=== PATIENT | male | born 1970 | race Caucasian/White ===

== ENCOUNTER → 2020-08-11 14:16 | Outpatient (BNVA) | payer OTHER, SELFPAY | PROVIDERS: PCP Nurse Practitioner Family; Visit Provider Family Medicine Adult Medicine | DX: M47.816 Spondylosis without myelopathy or radiculopathy, lumbar region (principal); M47.812 Spondylosis without myelopathy or radiculopathy, cervical region; M19.011 Primary osteoarthritis, right shoulder; M19.012 Primary osteoarthritis, left shoulder; M25.561 Pain in right knee; M25.562 Pain in left knee; F43.10 Post-traumatic stress disorder, unspecified; Z87.820 Personal history of traumatic brain injury; Z79.891 Long term (current) use of opiate analgesic | CPT/HCPCS: 99214 ==

== ENCOUNTER 2020-08-15 09:33 | Outpatient (REF) | payer OTHER, SELFPAY ==
[2020-08-15 11:36] LABS: Hematocrit 43.7 % (42-52); Hemoglobin 14.6 g/dl (14.0-18.0); Mean Corpuscular HGB Conc 33.4 g/dl (31.0-36.0); Mean Corpuscular Hemoglobin 29.4 pg (27.0-33.0); Mean Corpuscular Volume 88.1 fL (80-98); Mean Platelet Volume 10.1 fL (9.4-12.4); Platelet Count 290 X10*3/uL (160-400); Red Blood Count 4.96 X10*6/uL (4.60-5.80); Red Cell Distribution Width 14.6 % (11.0-16.0); White Blood Count 8.3 X10*3/uL (4.8-10.8)
[2020-08-20 12:10] LABS: Testosterone, Total 624 ng/dL (250-1100)
== END 2020-08-15 09:34 | disposition home or self-care (01) ==
LOC: HO.HMGCLDS 09:33
PROVIDERS: PCP Nurse Practitioner Family; Visit Provider Urology
DX: E29.1 Testicular hypofunction (principal); Z12.5 Encounter for screening for malignant neoplasm of prostate
CPT/HCPCS: 36415; 84153; 84403; 85027

== ENCOUNTER → 2020-09-08 14:01 | Outpatient (BNVA) | payer OTHER, SELFPAY | PROVIDERS: Visit Provider Family Medicine Adult Medicine | DX: M47.812 Spondylosis without myelopathy or radiculopathy, cervical region (principal); M47.816 Spondylosis without myelopathy or radiculopathy, lumbar region; M19.011 Primary osteoarthritis, right shoulder; M25.561 Pain in right knee; M25.562 Pain in left knee; Z79.891 Long term (current) use of opiate analgesic | CPT/HCPCS: 99212 ==

== ENCOUNTER → 2020-09-12 11:00 | Outpatient (BNVA) | payer OTHER, SELFPAY | PROVIDERS: Visit Provider Internal Medicine Gastroenterology | DX: R74.01 Elevation of levels of liver transaminase levels (principal); K21.9 Gastro-esophageal reflux disease without esophagitis; Z86.010 Personal history of colon polyps; Z79.899 Other long term (current) drug therapy | CPT/HCPCS: 99212 ==

== ENCOUNTER → 2020-09-21 15:09 | Outpatient (BNVA) | payer OTHER, SELFPAY | PROVIDERS: Visit Provider Urology | DX: Z76.89 Persons encountering health services in other specified circumstances (principal) ==

== ENCOUNTER → 2020-10-13 14:58 | Outpatient (BNVA) | payer OTHER, SELFPAY | PROVIDERS: Visit Provider Family Medicine Adult Medicine | DX: F11.20 Opioid dependence, uncomplicated (principal); Z79.899 Other long term (current) drug therapy | CPT/HCPCS: 99212 ==

== ENCOUNTER → 2020-12-06 10:32 | Outpatient (BNVA) | payer OTHER, SELFPAY | PROVIDERS: PCP Nurse Practitioner Family; Visit Provider Nurse Practitioner Family | DX: M25.561 Pain in right knee (principal); G89.29 Other chronic pain; M47.816 Spondylosis without myelopathy or radiculopathy, lumbar region; M19.012 Primary osteoarthritis, left shoulder; M19.011 Primary osteoarthritis, right shoulder; M47.812 Spondylosis without myelopathy or radiculopathy, cervical region; Z79.899 Other long term (current) drug therapy | CPT/HCPCS: 99212 ==

== ENCOUNTER → 2021-01-03 11:41 | Outpatient (BNVA) | payer OTHER, SELFPAY | PROVIDERS: PCP Nurse Practitioner Family; Visit Provider Family Medicine Adult Medicine | DX: M19.011 Primary osteoarthritis, right shoulder (principal); M47.812 Spondylosis without myelopathy or radiculopathy, cervical region; M47.816 Spondylosis without myelopathy or radiculopathy, lumbar region; M25.562 Pain in left knee; M25.561 Pain in right knee; G89.29 Other chronic pain | CPT/HCPCS: 99212 ==

== ENCOUNTER 2021-01-10 10:40 | Outpatient (REF) | payer OTHER, SELFPAY ==
--- NOTE | ~2021-01-10 | XR_ITS ---
EXAMINATION: XR KNEE, BILATERAL CLINICAL INFORMATION: Pain bilaterally. COMPARISON: None TECHNIQUE: Four views each knee. FINDINGS: RIGHT KNEE: Weightbearing AP and lateral views were obtained in addition to 2 other views. The medial and lateral compartment joint space is maintained normal. Mild loss of patellofemoral compartment joint space with periarticular spurring and mild suprapatellar joint effusion is noted. There is mild lateral patellar subluxation in relation to femur There are no loose bodies or free air. No free fluid seen. LEFT KNEE: Weightbearing views reveal medial and lateral compartment joint space to be maintained normal. Mild loss of patellofemoral compartment joint space seen with lateral subluxation of patella in relation to the distal femur. No abnormal joint effusion seen. No loose bodies or bony erosive changes. XR/XR knee LT 4V IMPRESSION: Mild degenerative changes bilateral patellofemoral compartments with suprapatellar joint effusion right knee. No acute fracture or dislocation seen. There is mild lateral subluxation of patella in relation to distal femur in both knees.
--- NOTE | ~2021-01-10 | XR_ITS ---
EXAMINATION: XR KNEE, BILATERAL CLINICAL INFORMATION: Pain bilaterally. COMPARISON: None TECHNIQUE: Four views each knee. FINDINGS: RIGHT KNEE: Weightbearing AP and lateral views were obtained in addition to 2 other views. The medial and lateral compartment joint space is maintained normal. Mild loss of patellofemoral compartment joint space with periarticular spurring and mild suprapatellar joint effusion is noted. There is mild lateral patellar subluxation in relation to femur There are no loose bodies or free air. No free fluid seen. LEFT KNEE: Weightbearing views reveal medial and lateral compartment joint space to be maintained normal. Mild loss of patellofemoral compartment joint space seen with lateral subluxation of patella in relation to the distal femur. No abnormal joint effusion seen. No loose bodies or bony erosive changes. XR/XR knee RT 4V IMPRESSION: Mild degenerative changes bilateral patellofemoral compartments with suprapatellar joint effusion right knee. No acute fracture or dislocation seen. There is mild lateral subluxation of patella in relation to distal femur in both knees.
[2021-01-10 14:31] LABS: Alanine Aminotransferase 62 U/L (0-40); Albumin Level 4.2 g/dL (3.5-5.0); Alkaline Phosphatase 37 U/L (39-117); Anion Gap 15 (12-20); Aspartate Amino Transferase 63 U/L (5-37); Bilirubin Direct 0.4 mg/dL (0.0-0.5); Bilirubin Total 1.1 mg/dL (0.0-1.0); Blood Urea Nitrogen 13 mg/dL (9-16); Calcium 9.5 mg/dL (8.4-10.2); Carbon Dioxide 32 mmol/L (22-29); Chloride 95 mmol/L (96-108); Cholesterol 218 mg/dL; Estimated Glomerular Filt Rate > 60; Glucose Fasting 76 mg/dL (60-99); HDL Cholesterol 31 mg/dL; LDL Cholesterol Calculated 127 mg/dl; Potassium 3.2 mmol/L (3.3-5.1); Sodium 139 mmol/L (135-145); Triglycerides 301 mg/dL
[2021-01-10 14:52] LABS: TSH reflex Free T4 3.02 uIU/mL (0.32-4.0)
[2021-01-11 22:11] LABS: Prot Elec - Albumin 3.9 g/dL (3.8-4.8); Prot Elec - Alpha1 0.4 g/dL (0.2-0.3); Prot Elec - Beta 1 0.5 g/dL (0.4-0.6); Prot Elec - Beta 2 0.4 g/dL (0.2-0.5); Prot Elec - Gamma 0.9 g/dL (0.8-1.7)
[2021-01-11 22:42] LABS: Anti Nuclear Antibody Screen NEGATIVE (NEGATIVE)
[2021-01-19 12:51] LABS: Smooth Muscle Antibody <20 U (<20)
== END 2021-01-10 10:41 | disposition home or self-care (01) ==
LOC: HO.HMGCX 10:40
PROVIDERS: Internal Medicine Gastroenterology; PCP Nurse Practitioner Family; Visit Provider Nurse Practitioner Family
DX: I10 Essential (primary) hypertension (principal); R74.01 Elevation of levels of liver transaminase levels
CPT/HCPCS: 36415; 73564; 80053; 80061; 80076; 82248; 84155; 84165; 84443; 85610; 86038; 86039; 86255

== ENCOUNTER 2021-01-11 10:50 | Outpatient (REF) | payer OTHER, SELFPAY ==
[2021-01-11 14:38] LABS: Anion Gap 14 (12-20); Carbon Dioxide 31 mmol/L (22-29); Chloride 94 mmol/L (96-108); Potassium 3.2 mmol/L (3.3-5.1); Sodium 136 mmol/L (135-145)
[2021-01-13 08:13] LABS: HBS Num1 0.64 mIU/mL (0-7.99); HBc Num1 0.07 S/CO (0.00-0.79); Hepatitis A Antibody IgM 0.16 Index (0-0.79); Hepatitis B Core Antibody Nonreactive (Nonreactive); ~Hepatitis A Antibody IgM Nonreactive (Nonreactive); ~Hepatitis B Surface Antibody NONREACTIVE (Nonreactive)
[2021-01-13 08:44] LABS: HBsAGNum1 0.19 S/CO (0.00-0.99); Hepatitis B Surface Antigen Negative (Negative); ~HepC Num1 0.09 S/CO (0.00-0.79); ~Hepatitis C Antibody Nonreactive (Nonreactive)
== END 2021-01-11 10:51 | disposition home or self-care (01) ==
LOC: HO.HMGCLDS 10:50
PROVIDERS: PCP Nurse Practitioner Family; Visit Provider Nurse Practitioner Family
DX: E87.6 Hypokalemia (principal); R74.8 Abnormal levels of other serum enzymes
CPT/HCPCS: 36415; 80051; 86704; 86706; 86709; 86803; 87340

== ENCOUNTER 2021-01-18 10:40 | Outpatient (REF) | payer OTHER, SELFPAY ==
--- NOTE | ~2021-01-18 | US_ITS ---
EXAMINATION: US SOFT TISSUE OF THE NECK CLINICAL INFORMATION: L98.9 - Disorder of the skin and subcutaneous tissue, unspecified. COMPARISON: None TECHNIQUE: Linear ultrasound left supraclavicular region is targeted to the area of patient concern. Grayscale imaging and color Doppler are performed. Patient is able to point to area of concern at time of imaging. FINDINGS: There is small oval soft tissue nodule left supraclavicular region in area of palpable concern measuring only 4 x 2 mm in size and residing within 5 mm of the skin surface. This may represent a small node although no definable fatty hilus or associated color flow is seen. Otherwise, there is no cystic or solid mass. No skin thickening or edema tracking in soft tissue planes. No lymphadenopathy. US/US soft tiss head and/or neck IMPRESSION: Questionable 4 x 2 mm soft tissue nodule in area of palpable concern left supraclavicular region. Otherwise, no cystic or solid mass or lymphadenopathy.
--- NOTE | ~2021-01-18 | US_ITS ---
EXAMINATION: US ABDOMEN COMPLETE CLINICAL INFORMATION: Abnormal levels of other serum enzymes. COMPARISON: CT abdomen pelvis 01/01/2020 ultrasound abdomen 12/30/2019 and 02/18/2019. TECHNIQUE: Real-time imaging of the abdominal viscera. FINDINGS: PANCREAS: The head and the body of pancreas are homogeneous in echotexture. The tail is obscured by overlying gas. The pancreatic duct is slightly prominent measuring 0.28 cm. ABDOMINAL AORTA: The proximal, mid, and distal segments are normal in caliber. INFERIOR VENA CAVA: Visualized portions are normal. LIVER: The liver is normal in size. The liver contour is normal. There is mild diffuse increased liver echogenicity. No focal hepatic lesion. There is no intrahepatic biliary duct dilatation seen. There is hepatopedal flow seen on Doppler exam. Slightly prominent bulbous middle portal vein is seen. GALLBLADDER: The gallbladder is physiologically distended. Multiple mobile gallstones are present. No evidence of gallbladder wall thickening or pericholecystic fluid. COMMON BILE DUCT: Normal in caliber measuring 1.1 cm in diameter. RIGHT KIDNEY: Normal. No hydronephrosis. No renal calculi or focal parenchymal lesions. The kidney measures 12.8 cm in maximum dimension. LEFT KIDNEY: Normal. No hydronephrosis. No renal calculi or focal parenchymal lesions. The kidney measures 14.9 cm in maximum dimension. SPLEEN: Normal. The spleen measures 12.6 cm in maximum dimension. FREE FLUID: None. US/US abdomen complete IMPRESSION: Slightly increased liver echogenicity but no focal lesions seen. Slightly bulbous but patent middle portal vein on Doppler exam. Gallstones without wall thickening. The rest of the abdominal ultrasound is unremarkable.
== END 2021-01-18 10:41 | disposition home or self-care (01) ==
LOC: HO.US 10:40
PROVIDERS: PCP Nurse Practitioner Family; Visit Provider Nurse Practitioner Family
DX: R74.8 Abnormal levels of other serum enzymes (principal); L98.9 Disorder of the skin and subcutaneous tissue, unspecified
CPT/HCPCS: 76536; 76700

== ENCOUNTER 2021-01-23 11:35 | Outpatient (REF) | payer OTHER, SELFPAY ==
[2021-01-23 15:00] LABS: Anion Gap 14 (12-20); Carbon Dioxide 33 mmol/L (22-29); Chloride 97 mmol/L (96-108); Potassium 4.4 mmol/L (3.3-5.1); Sodium 140 mmol/L (135-145)
== END 2021-01-23 11:36 | disposition home or self-care (01) ==
LOC: HO.HMGCLDS 11:35
PROVIDERS: PCP Nurse Practitioner Family; Visit Provider Nurse Practitioner Family
DX: E87.6 Hypokalemia (principal)
CPT/HCPCS: 36415; 80051

== ENCOUNTER → 2021-01-24 14:05 | Outpatient (BNVA) | payer OTHER, SELFPAY | PROVIDERS: PCP Nurse Practitioner Family; Visit Provider Orthopaedic Surgery | DX: M17.0 Bilateral primary osteoarthritis of knee (principal) | CPT/HCPCS: 20610; 99202; J1040 ==

== ENCOUNTER → 2021-02-07 11:28 | Outpatient (BNVA) | payer OTHER, SELFPAY | PROVIDERS: PCP Nurse Practitioner Family; Visit Provider Family Medicine Adult Medicine | DX: M19.011 Primary osteoarthritis, right shoulder (principal); M47.812 Spondylosis without myelopathy or radiculopathy, cervical region; M47.816 Spondylosis without myelopathy or radiculopathy, lumbar region; M25.561 Pain in right knee; M25.562 Pain in left knee; G89.29 Other chronic pain | CPT/HCPCS: 99212 ==

== ENCOUNTER → 2021-03-09 15:42 | Outpatient (BNVA) | payer OTHER, SELFPAY | PROVIDERS: PCP Nurse Practitioner Family; Referring Provider Nurse Practitioner Family; Visit Provider Surgery | DX: R22.2 Localized swelling, mass and lump, trunk (principal) | CPT/HCPCS: 99202 ==

== ENCOUNTER 2021-03-14 10:43 | Outpatient (REF) | payer OTHER, SELFPAY ==
[2021-03-14 16:42] LABS: Hematocrit 45.6 % (42-52); Hemoglobin 15.1 g/dl (14.0-18.0); Mean Corpuscular HGB Conc 33.1 g/dl (31.0-36.0); Mean Corpuscular Hemoglobin 28.2 pg (27.0-33.0); Mean Corpuscular Volume 85.2 fL (80-98); Mean Platelet Volume 10.5 fL (9.4-12.4); Platelet Count 217 X10*3/uL (160-400); Red Blood Count 5.35 X10*6/uL (4.60-5.80); Red Cell Distribution Width 14.7 % (11.0-16.0); White Blood Count 6.3 X10*3/uL (4.8-10.8)
[2021-03-14 16:58] LABS: Prothrombin Time 11.5 SEC (10.8-13.0)
[2021-03-14 17:10] LABS: Blood Urea Nitrogen 18 mg/dL (9-16); Cholesterol 190 mg/dL; Estimated Glomerular Filt Rate > 60; HDL Cholesterol 39 mg/dL; LDL Cholesterol Calculated 92 mg/dl; Triglycerides 295 mg/dL
[2021-03-14 18:14] LABS: PSA,Total (Free>4and<10) 0.82 ng/mL (0.00-4.00)
[2021-03-15 23:07] LABS: Prot Elec - Alpha1 0.3 g/dL (0.2-0.3); Prot Elec - Alpha2 0.8 g/dL (0.5-0.9); Prot Elec - Beta 1 0.5 g/dL (0.4-0.6); Prot Elec - Beta 2 0.4 g/dL (0.2-0.5); Prot Elec - Gamma 0.8 g/dL (0.8-1.7); Prot Elec - Total Protein 6.8 g/dL (6.1-8.1)
[2021-03-16 12:03] LABS: Alanine Aminotransferase 41 U/L (0-40); Albumin Level 4.1 g/dL (3.5-5.0); Alkaline Phosphatase 43 U/L (39-117); Aspartate Amino Transferase 39 U/L (5-37); Bilirubin Direct 0.3 mg/dL (0.0-0.5); Bilirubin Total 0.9 mg/dL (0.0-1.0); Total Protein 6.8 g/dL (6.5-8.0)
[2021-03-17 20:41] LABS: Estradiol Ultra Sensitive 4 pg/mL (< OR = 29)
[2021-03-17 23:06] LABS: Anti Nuclear Antibody Screen NEGATIVE (NEGATIVE)
[2021-03-18 14:46] LABS: Testosterone, Total 473 ng/dL (250-1100)
[2021-03-20 20:32] LABS: Smooth Muscle Antibody <20 U (<20)
== END 2021-03-14 10:44 | disposition home or self-care (01) ==
LOC: HO.HMGCLDS 10:43
PROVIDERS: Urology; PCP Nurse Practitioner Family; Referring Provider Internal Medicine Gastroenterology; Visit Provider Family Medicine Adult Medicine
DX: M47.812 Spondylosis without myelopathy or radiculopathy, cervical region (principal); M25.561 Pain in right knee; M25.562 Pain in left knee; M19.011 Primary osteoarthritis, right shoulder; M47.816 Spondylosis without myelopathy or radiculopathy, lumbar region; G89.29 Other chronic pain; R22.2 Localized swelling, mass and lump, trunk; N40.1 Benign prostatic hyperplasia with lower urinary tract symptoms; N13.8 Other obstructive and reflux uropathy; E29.1 Testicular hypofunction; Z79.899 Other long term (current) drug therapy
CPT/HCPCS: 36415; 80061; 80076; 82565; 82670; 84153; 84155; 84165; 84403; 84520; 85027; 85610; 86038; 86039; 86255; 99212

== ENCOUNTER → 2021-03-16 11:32 | Outpatient (BNVA) | payer OTHER, SELFPAY | PROVIDERS: PCP Nurse Practitioner Family; Referring Provider Nurse Practitioner Family; Visit Provider Internal Medicine Gastroenterology | DX: R74.01 Elevation of levels of liver transaminase levels (principal); K21.9 Gastro-esophageal reflux disease without esophagitis; R14.0 Abdominal distension (gaseous); Z86.010 Personal history of colon polyps | CPT/HCPCS: 99212 ==

== ENCOUNTER → 2021-03-21 15:24 | Outpatient (BNVA) | payer OTHER, SELFPAY | PROVIDERS: PCP Nurse Practitioner Family; Visit Provider Urology | DX: N40.1 Benign prostatic hyperplasia with lower urinary tract symptoms (principal); N13.8 Other obstructive and reflux uropathy; E29.1 Testicular hypofunction; R35.1 Nocturia | CPT/HCPCS: 99212 ==

== ENCOUNTER 2021-03-29 10:02 | Outpatient (REF) | payer OTHER, SELFPAY ==
--- NOTE | ~2021-03-29 | CT_ITS ---
EXAMINATION: CT SOFT TISSUE NECK WITH CONTRAST CLINICAL INFORMATION: Localized swelling, mass or lump. COMPARISON: None. TECHNIQUE: Following the intravenous administration of 100 mL of Omnipaque 350 intravenous contrast, helical imaging was performed in the axial plane with generation of coronal and sagittal reformatted images. This CT examination was performed using dose optimization techniques as appropriate, variously including the following: *Automated exposure control *Adjustment of mA and/or kV according to patient size (this includes techniques or standardized protocols for targeted exams where dose is matched to indication/reason for exam; i.e. extremities or head) *Use of iterative reconstruction technique DLP: 423 mGy-cm. FINDINGS: There are small shotty lymph nodes seen throughout the neck, none of which are significant. There is no visible neck mass or mass effect. There is minimal cellulitis along the anterior submandibular soft tissues The parotid glands are homogeneous in attenuation. The submandibular glands are normal. No contour abnormality or pathologic enhancement is seen within the oral cavity or pharyngeal mucosal space. The laryngeal structures are normal. The parapharyngeal fat is preserved. The carotid sheath vasculature opacify normally. No extra mucosal soft tissue mass or fluid collection is seen. No retropharyngeal fluid collection is seen. The thyroid gland is normal. The superior mediastinum is unremarkable. The lung apices are clear. There is diffuse mucoperiosteal thickening involving bilateral maxillary sinuses. Rest of the paranasal sinuses are well-aerated. The right ostial complex is obstructed from mucosal thickening. Left ostial complex is widely patent. The bony sinus cerna and the lamina papyracea appear intact. The temporomandibular joints are normal. No periapical disease is identified. There is moderate ventral spondylosis C2-C3, C3-C4, C4-C5, C5-C6 and C6-C7 disc levels. The imaged portions of the brain parenchyma are unremarkable. CT/CT soft tissue neck w con IMPRESSION: There is mild cellulitis anterior to the mandible but no definite mass, abscess or abnormal lymph nodes seen. Chronic bilateral maxillary sinus inflammatory changes worse on the right. Moderate ventral spondylosis cervical spine. Moderate chronic bilateral maxillary sinusitis, greater on the right.
[2021-03-29] MEDS: iohexoL 350 MG/ML 100 ML INFUS..BTL IV (11:55)
== END 2021-03-29 10:03 | disposition home or self-care (01) ==
LOC: HO.CT 10:02
PROVIDERS: PCP Nurse Practitioner Family; Visit Provider Surgery
DX: R22.2 Localized swelling, mass and lump, trunk (principal)
CPT/HCPCS: 70491; Q9967

== ENCOUNTER → 2021-04-12 10:06 | Outpatient (BNVA) | payer OTHER, SELFPAY | PROVIDERS: PCP Nurse Practitioner Family; Visit Provider Nurse Practitioner Family | DX: M47.812 Spondylosis without myelopathy or radiculopathy, cervical region (principal); M25.561 Pain in right knee; M25.562 Pain in left knee; G89.29 Other chronic pain; M47.816 Spondylosis without myelopathy or radiculopathy, lumbar region; M19.012 Primary osteoarthritis, left shoulder; M19.011 Primary osteoarthritis, right shoulder | CPT/HCPCS: 99212 ==

== ENCOUNTER → 2021-04-20 09:19 | Outpatient (BNVA) | payer OTHER, SELFPAY | PROVIDERS: PCP Nurse Practitioner Family; Referring Provider Nurse Practitioner Family; Visit Provider Surgery | DX: R22.2 Localized swelling, mass and lump, trunk (principal) | CPT/HCPCS: 99212 ==

== ENCOUNTER 2021-04-26 10:23 | Outpatient (REF) | payer OTHER, SELFPAY ==
--- NOTE | ~2021-04-26 | MR_ITS ---
EXAMINATION: UNENHANCED MRI OF THE CERVICAL SPINE UNENHANCED MRI OF THE LUMBAR SPINE CLINICAL INFORMATION: Spondylosis with myelopathy. Radiculopathy. Self-reported left upper extremity numbness, bilateral lower extremity numbness. COMPARISON: CT neck 03/29/2021. Cervical spine CT 03/22/2018. MRI brain 10/01/2017. TECHNIQUE: Routine unenhanced MRI of the cervical spine; routine unenhanced MRI of the thoracic spine. FINDINGS: MRI CERVICAL SPINE: Mild anterior endplate osteophytosis is present at C5-C6 C6-C7 and C7-T1, unchanged appreciably compared with 03/22/2018. Endplate discogenic marrow signal changes are present at these same levels, predominantly anteriorly. 1 mm degenerative retrolisthesis of C5 on C6 is present, unchanged compared with 03/22/2018. No suspicious marrow abnormalities are identified. No vertebral body wedge deformities are identified. The craniocervical junction and visualized posterior fossa structures are normal in appearance. C2-C3: Minimal posterior broad-based disc bulge. No central or foraminal stenoses. C3-C4: Moderate central stenosis. Findings arise secondary to a moderate central disc-osteophyte complex partially effacing the ventral thecal sac CSF space without posterior displacement or AP deformation of the adjacent spinal cord. C4-C5: Moderate marked central stenosis. Findings arise secondary to a moderate posterior broad-based disc-osteophyte complex with near complete effacement of the adjacent thecal sac CSF space and mild AP deformation of the adjacent spinal cord. No focal spinal cord signal abnormalities. C5-C6: Marked central stenosis. Marked bilateral foraminal stenoses. Findings arise secondary to a prominent posterior broad-based disc-osteophyte complex with complete effacement of the adjacent thecal sac CSF space and posterior displacement and AP deformation to an AP dimension of 4 mm in the adjacent spinal cord without focal spinal cord signal abnormality. 75% bilateral foraminal stenoses are noted. C6-C7: Moderate central stenosis. Mild bilateral foraminal stenoses. Findings arise secondary to posterior broad-based disc-osteophyte complex partially effacing the ventral thecal sac CSF space with less then 50% bilateral foraminal narrowing. C7-T1: Mild right foraminal stenosis. Minimal posterior broad-based disc bulge. The right uncovertebral joint incorporation of the broad-based disc bulge results in less than 50% right foraminal narrowing. MRI lumbar spine: 5 lumbar type vertebral bodies are identified and are normal in height and alignment. Minimal scattered benign appearing endplate discogenic marrow signal changes are noted. The conus medullaris terminates at the level of L1. The visualized conus medullaris and cauda equina are normal in appearance. L1-L2: No significant central or foraminal stenoses. Mild bilateral ligamentum flavum hypertrophy. Prominent right lateral endplate disc-osteophyte complex without definitive associated nerve root impingement. L2-L3: Mild central stenosis. Findings arise secondary to a mild posterior broad-based disc bulge and moderate bilateral facet and ligamentum flavum hypertrophy. L3-L4: Mild central stenosis. Findings arise secondary to a minimal posterior broad-based disc bulge, marked bilateral ligamentum flavum hypertrophy and moderate bilateral facet hypertrophy. L4-L5: Mild central stenosis. Findings arise in the setting of a mild posterior broad-based disc bulge and moderate bilateral ligamentum flavum hypertrophy. L5-S1: Mild central stenosis. Moderate bilateral foraminal stenoses. Findings arise in the setting of a mild posterior broad-based disc bulge with bilateral intraforaminal extension with mild bilateral exiting L5 nerve root abutment (series 2 image 13, image 3). Additionally, mild bilateral facet and ligamentum flavum hypertrophy is noted at this level. MR/MR cervical spine wo con IMPRESSION: MRI cervical spine: 1. Multilevel chronic spondylosis of the cervical spine with findings most pronounced at C5-C6 where marked central and marked bilateral foraminal stenoses are present. Additionally, moderate central stenoses are present at C4-C5 and C6-C7. Additional details related to chronic spondylosis are noted above. MRI lumbar spine: 1. Mild-moderate chronic spondylosis of the lumbar spine. At L5-S1, moderate bilateral foraminal stenoses with mild bilateral L5 nerve root impingement is identified. Elsewhere in the lumbar spine, no direct nerve root impingement or marked central or foraminal stenoses are visualized.
--- NOTE | ~2021-04-26 | XR_ITS ---
EXAMINATION: XR SINUSES CLINICAL INFORMATION: Chronic sinusitis COMPARISON: None TECHNIQUE: 4 views of the paranasal sinuses FINDINGS: The paranasal sinuses are well aerated and clear. No opacification or air-fluid level is. Bony structures are unremarkable. XR/XR sinus min 3V IMPRESSION: Clear paranasal sinuses.
== END 2021-04-26 10:24 | disposition home or self-care (01) ==
LOC: HO.MRI 10:23
PROVIDERS: PCP Nurse Practitioner Family; Visit Provider Physical Medicine & Rehabilitation
DX: M54.16 Radiculopathy, lumbar region (principal); M47.812 Spondylosis without myelopathy or radiculopathy, cervical region; J32.9 Chronic sinusitis, unspecified
CPT/HCPCS: 70220; 72141; 72148

== ENCOUNTER → 2021-05-09 15:39 | Outpatient (BNVA) | payer OTHER, SELFPAY | PROVIDERS: PCP Nurse Practitioner Family; Visit Provider Family Medicine Adult Medicine | DX: M47.812 Spondylosis without myelopathy or radiculopathy, cervical region (principal); M25.561 Pain in right knee; M25.562 Pain in left knee; M19.011 Primary osteoarthritis, right shoulder; M47.816 Spondylosis without myelopathy or radiculopathy, lumbar region; G89.29 Other chronic pain | CPT/HCPCS: 99212 ==

== ENCOUNTER 2021-05-10 11:50 | Outpatient (REF) | payer OTHER, SELFPAY ==
--- NOTE | ~2021-05-10 | XR_ITS ---
EXAMINATION: CERVICAL AND THORACIC SPINE. CLINICAL INFORMATION: Injury. Fall. Neck pain. Back pain. COMPARISON: MRI cervical spine 04/26/2021 TECHNIQUE: 3 views dorsal spine. 3 view cervical spine. FINDINGS: CERVICAL SPINE: There is mild straightening of cervical lordosis. There is loss of C5-C6, C6-C7 and C7-T1 disc heights with moderate ventral spondylosis. No visible acute fracture, dislocation or subluxation seen. The prevertebral soft tissues are normal. The craniovertebral junction is normal. DORSAL SPINE: There is normal thoracic kyphosis. The vertebral heights, alignment and disc heights are normal. No visible acute fracture, dislocation or lytic process seen. The paravertebral soft tissues are normal. XR/XR cervical spine 3V IMPRESSION: Degenerative disc changes C5-C6, C6-C7 and C7-T1 disc levels without visible acute fracture or dislocation. Unremarkable dorsal spine exam.
--- NOTE | ~2021-05-10 | XR_ITS ---
EXAMINATION: CERVICAL AND THORACIC SPINE. CLINICAL INFORMATION: Injury. Fall. Neck pain. Back pain. COMPARISON: MRI cervical spine 04/26/2021 TECHNIQUE: 3 views dorsal spine. 3 view cervical spine. FINDINGS: CERVICAL SPINE: There is mild straightening of cervical lordosis. There is loss of C5-C6, C6-C7 and C7-T1 disc heights with moderate ventral spondylosis. No visible acute fracture, dislocation or subluxation seen. The prevertebral soft tissues are normal. The craniovertebral junction is normal. DORSAL SPINE: There is normal thoracic kyphosis. The vertebral heights, alignment and disc heights are normal. No visible acute fracture, dislocation or lytic process seen. The paravertebral soft tissues are normal. XR/XR thoracic spine 3V IMPRESSION: Degenerative disc changes C5-C6, C6-C7 and C7-T1 disc levels without visible acute fracture or dislocation. Unremarkable dorsal spine exam.
== END 2021-05-10 11:51 | disposition home or self-care (01) ==
LOC: HO.HMGCX 11:50
PROVIDERS: PCP Nurse Practitioner Family; Visit Provider Nurse Practitioner Family
DX: S19.9XXA Unspecified injury of neck, initial encounter (principal); M54.9 Dorsalgia, unspecified; W19.XXXA Unspecified fall, initial encounter
CPT/HCPCS: 72040; 72072

== ENCOUNTER → 2021-06-08 08:05 | Outpatient (BNVA) | payer OTHER, SELFPAY | PROVIDERS: PCP Nurse Practitioner Family; Visit Provider Family Medicine Adult Medicine | DX: M47.812 Spondylosis without myelopathy or radiculopathy, cervical region (principal); M47.816 Spondylosis without myelopathy or radiculopathy, lumbar region; M19.011 Primary osteoarthritis, right shoulder; M25.561 Pain in right knee; M25.562 Pain in left knee; G89.29 Other chronic pain; F41.9 Anxiety disorder, unspecified; F43.10 Post-traumatic stress disorder, unspecified; F17.220 Nicotine dependence, chewing tobacco, uncomplicated; F17.290 Nicotine dependence, other tobacco product, uncomplicated | CPT/HCPCS: 99212 ==

== ENCOUNTER → 2021-07-06 15:35 | Outpatient (BNVA) | payer OTHER, SELFPAY | PROVIDERS: PCP Nurse Practitioner Family; Visit Provider Family Medicine Adult Medicine | DX: M47.812 Spondylosis without myelopathy or radiculopathy, cervical region (principal); G89.29 Other chronic pain; M25.561 Pain in right knee; M25.562 Pain in left knee; M19.011 Primary osteoarthritis, right shoulder; M47.816 Spondylosis without myelopathy or radiculopathy, lumbar region | CPT/HCPCS: 99212 ==

== ENCOUNTER 2021-07-20 12:12 | Outpatient (REF) | payer OTHER, SELFPAY ==
[2021-07-20 13:57] LABS: MANUAL DIFF FLAG NO
[2021-07-20 14:03] LABS: Basophils Percent Auto 0.2 % (0-2); Eosinophils Percent Auto 0.2 % (0-4); Hematocrit 39.9 % (42-52); Hemoglobin 13.7 g/dl (14.0-18.0); Imm Gran Abs Auto 0.18 X10*3/uL (0.00-0.03); Imm Gran Pct Auto 1.5 % (0.0-0.4); Lymphocytes Absolute Auto 1.1 X10*3/uL (1.2-4.9); Lymphocytes Percent Auto 8.9 % (20-40); Mean Corpuscular HGB Conc 34.3 g/dl (31.0-36.0); Mean Corpuscular Hemoglobin 28.8 pg (27.0-33.0); Mean Platelet Volume 10.3 fL (9.4-12.4); Monocytes Percent Auto 8.1 % (2-11); Neutrophils Absolute Auto 9.9 X10*3/uL (2.0-8.3); Neutrophils Percent Auto 81.1 % (45-73); Platelet Count 286 X10*3/uL (160-400); Red Blood Count 4.75 X10*6/uL (4.60-5.80); Red Cell Distribution Width 16.7 % (11.0-16.0); White Blood Count 12.2 X10*3/uL (4.8-10.8)
[2021-07-20 14:24] LABS: Alanine Aminotransferase 48 U/L (0-40); Albumin Level 3.7 g/dL (3.5-5.0); Alkaline Phosphatase 37 U/L (39-117); Anion Gap 13 (12-20); Aspartate Amino Transferase 39 U/L (5-37); Bilirubin Total 0.7 mg/dL (0.0-1.0); Blood Urea Nitrogen 18 mg/dL (9-16); Calcium 9.4 mg/dL (8.4-10.2); Carbon Dioxide 32 mmol/L (22-29); Chloride 97 mmol/L (96-108); Estimated Glomerular Filt Rate > 60; Glucose Random 134 mg/dL (60-115); Potassium 3.3 mmol/L (3.3-5.1); Sodium 139 mmol/L (135-145)
[2021-07-20 14:28] LABS: B Type Natriuretic Peptide 16 pg/mL (<100)
== END 2021-07-20 12:13 | disposition home or self-care (01) ==
LOC: HO.HMGCLDS 12:12
PROVIDERS: PCP Nurse Practitioner Family; Visit Provider Nurse Practitioner Family
DX: R10.9 Unspecified abdominal pain (principal); R60.0 Localized edema; R14.0 Abdominal distension (gaseous)
CPT/HCPCS: 36415; 80053; 83880; 85025

== ENCOUNTER → 2021-08-03 08:04 | Outpatient (BNVA) | payer OTHER, SELFPAY | PROVIDERS: PCP Nurse Practitioner Family; Visit Provider Family Medicine Adult Medicine | DX: Z51.81 Encounter for therapeutic drug level monitoring (principal); M47.812 Spondylosis without myelopathy or radiculopathy, cervical region; M47.816 Spondylosis without myelopathy or radiculopathy, lumbar region; M25.561 Pain in right knee; M25.562 Pain in left knee; G89.29 Other chronic pain | CPT/HCPCS: 99212 ==

== ENCOUNTER 2021-08-07 09:58 | Outpatient (REF) | payer OTHER, SELFPAY ==
--- NOTE | ~2021-08-07 | CT_ITS ---
EXAMINATION: CT ABDOMEN AND PELVIS WITH CONTRAST CLINICAL INFORMATION: Abdominal pain COMPARISON: Previous CT scans of the abdomen and pelvis most recent December 2020 and abdominal ultrasound January 2021 TECHNIQUE: Multidetector volumetric images were obtained from the superior aspect of the liver through the pubic symphysis following administration 85 mL of Omnipaque 350 intravenous contrast. Sagittal and coronal reformatted images were obtained on the technologist's workstation. Oral contrast: Yes This CT examination was performed using dose optimization techniques as appropriate, variously including the following: *Automated exposure control *Adjustment of mA and/or kV according to patient size (this includes techniques or standardized protocols for targeted exams where dose is matched to indication/reason for exam; i.e. extremities or head) *Use of iterative reconstruction technique DLP: 480 mGy-cm FINDINGS: LUNG BASES: There is a 5 mm right lower lobe nodule axial image 2 series 3 that is stable. The lung bases are otherwise clear. The previously identified groundglass attenuation nodule in the right lower lobe nodule. LIVER, GALLBLADDER, AND BILIARY TREE: The liver is normal in size, shape, and attenuation. No focal hepatic lesion or biliary ductal dilatation is present. The gallbladder is unremarkable with no evidence of radiopaque gallstones, gallbladder wall thickening, or obvious pericholecystic inflammatory changes. PANCREAS: Unremarkable. SPLEEN: Unremarkable. ADRENAL GLANDS: Unremarkable. KIDNEYS AND URETERS: The kidneys are normal in size, shape, and attenuation. No hydronephrosis, hydroureter, or calculi seen. No perinephric stranding. BLADDER: Unremarkable. GASTROINTESTINAL TRACT: There is mild diverticulosis of the colon. The small and large bowel are otherwise unremarkable. The appendix is unremarkable. There is question of mild wall and fold thickening of the proximal stomach versus changes due to underdistention. ABDOMINAL WALL: There is a small left inguinal hernia containing fat. LYMPH NODES: Normal. VASCULAR: Unremarkable. PELVIC VISCERA: Unremarkable. OSSEOUS STRUCTURES: There are degenerative changes of the spine. 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 CT/CT abdomen pelvis w con IMPRESSION: Diverticulosis of the colon. No evidence of diverticulitis. Question wall and fold thickening of the proximal stomach versus changes due to underdistention. AVN of the right femoral head. Stable right lower lobe pulmonary nodule.
[2021-08-07] MEDS: iohexoL 350 MG/ML 100 ML INFUS..BTL IV (13:15)
[2021-08-07] MEDS: Barium Sulfate Oral (Mocha) 450 ML ORAL.SUSP 900 ML PO (13:16)
== END 2021-08-07 09:59 | disposition home or self-care (01) ==
LOC: HO.CT 09:58
PROVIDERS: Visit Provider Nurse Practitioner Family
DX: R10.9 Unspecified abdominal pain (principal); R14.0 Abdominal distension (gaseous)
CPT/HCPCS: 74177; Q9967

== ENCOUNTER 2021-08-22 11:50 | Outpatient (REF) | payer OTHER, SELFPAY ==
[2021-08-22 14:05] LABS: Appearance Urine CLEAR; Color Urine DK YELLOW; Glucose Urine UA NEG (NEG); Leukocyte Esterase Urine NEG (NEG); Nitrite Urine NEG (NEG); PH 5.5 (5.0-8.0); Specific Gravity - Urine >= 1.030 (1.005-1.025); UACC Culture Trigger NO; Urine Blood NEG (NEG); Urine Ketones NEG (NEG); Urine Protein 1+ MG/DL (NEG-TRACE)
[2021-08-22 14:34] LABS: Alanine Aminotransferase 39 U/L (0-40); Albumin Level 3.8 g/dL (3.5-5.0); Alkaline Phosphatase 43 U/L (39-117); Anion Gap 15 (12-20); Aspartate Amino Transferase 36 U/L (5-37); Bilirubin Total 0.2 mg/dL (0.0-1.0); Blood Urea Nitrogen 21 mg/dL (9-16); Calcium 9.2 mg/dL (8.4-10.2); Carbon Dioxide 30 mmol/L (22-29); Chloride 99 mmol/L (96-108); Cholesterol 185 mg/dL; Estimated Glomerular Filt Rate 48; Glucose Fasting 88 mg/dL (60-99); HDL Cholesterol 14 mg/dL; LDL Cholesterol Calculated 139 mg/dl; Potassium 3.5 mmol/L (3.3-5.1); Sodium 140 mmol/L (135-145); Total Protein 6.7 g/dL (6.5-8.0); Triglycerides 160 mg/dL
[2021-08-22 14:39] LABS: TSH reflex Free T4 1.94 uIU/mL (0.32-4.0)
[2021-08-22 14:49] LABS: RBC Urine 0-2 /HPF (0); WBC Urine 0-2 /HPF (0-4)
== END 2021-08-22 11:51 | disposition home or self-care (01) ==
LOC: HO.HMGCLDS 11:50
PROVIDERS: PCP Nurse Practitioner Family; Visit Provider Internal Medicine Gastroenterology
DX: Z00.00 Encounter for general adult medical examination without abnormal findings (principal)
CPT/HCPCS: 36415; 80053; 80061; 81001; 84443

== ENCOUNTER 2021-08-25 08:19 | Outpatient (REF) | payer OTHER, SELFPAY ==
[2021-08-25 11:35] LABS: Appearance Urine CLEAR; Color Urine DK YELLOW; Glucose Urine UA NEG (NEG); Leukocyte Esterase Urine NEG (NEG); Nitrite Urine NEG (NEG); Specific Gravity - Urine >= 1.030 (1.005-1.025); Urine Blood NEG (NEG); Urine Ketones NEG (NEG); Urine Protein TRACE MG/DL (NEG-TRACE)
[2021-08-25 12:22] LABS: Alanine Aminotransferase 45 U/L (0-40); Albumin Level 3.9 g/dL (3.5-5.0); Alkaline Phosphatase 42 U/L (39-117); Anion Gap 14 (12-20); Aspartate Amino Transferase 40 U/L (5-37); Bilirubin Total 0.5 mg/dL (0.0-1.0); Blood Urea Nitrogen 12 mg/dL (9-16); Calcium 9.9 mg/dL (8.4-10.2); Carbon Dioxide 32 mmol/L (22-29); Chloride 98 mmol/L (96-108); Cholesterol 211 mg/dL; Estimated Glomerular Filt Rate > 60; Glucose Random 113 mg/dL (60-115); HDL Cholesterol 16 mg/dL; LDL Cholesterol Calculated 133 mg/dl; Potassium 3.6 mmol/L (3.3-5.1); Sodium 140 mmol/L (135-145); Total Protein 6.9 g/dL (6.5-8.0); Triglycerides 311 mg/dL
== END 2021-08-25 08:20 | disposition home or self-care (01) ==
LOC: HO.HMGCLDS 08:19
PROVIDERS: PCP Nurse Practitioner Family; Visit Provider Nurse Practitioner Family
DX: Z00.00 Encounter for general adult medical examination without abnormal findings (principal); Z12.5 Encounter for screening for malignant neoplasm of prostate; E78.1 Pure hyperglyceridemia; R79.89 Other specified abnormal findings of blood chemistry
CPT/HCPCS: 36415; 80053; 80061; 81003

== ENCOUNTER → 2021-08-31 09:08 | Outpatient (BNVA) | payer OTHER, SELFPAY | PROVIDERS: Visit Provider Family Medicine Adult Medicine ==

== ENCOUNTER → 2021-09-21 09:43 | Outpatient (BNVA) | payer OTHER, SELFPAY | PROVIDERS: Visit Provider Family Medicine Adult Medicine | DX: Z51.81 Encounter for therapeutic drug level monitoring (principal); M47.812 Spondylosis without myelopathy or radiculopathy, cervical region; M47.816 Spondylosis without myelopathy or radiculopathy, lumbar region | CPT/HCPCS: 99212 ==

== ENCOUNTER 2021-09-26 08:55 | Outpatient (REF) | payer OTHER, SELFPAY ==
--- NOTE | ~2021-09-26 | XR_ITS ---
EXAMINATION: XR HAND, RIGHT CLINICAL INFORMATION: Pain in the right hand COMPARISON: Right hand 01/12/2020 TECHNIQUE: PA, lateral, and oblique views of the right hand. FINDINGS: No fracture. No dislocation. Joint spaces are normal. No focal bone lesion or abnormal periosteal reaction. There is a 2 mm rounded calcification distal to the tip of the ulnar styloid which is chronic, unchanged since prior study. XR/XR hand RT min 3V IMPRESSION: Normal right hand.
== END 2021-09-26 08:56 | disposition home or self-care (01) ==
LOC: HO.HOSX 08:55
PROVIDERS: Visit Provider Orthopaedic Surgery
DX: M79.641 Pain in right hand (principal); Z87.891 Personal history of nicotine dependence; Z72.89 Other problems related to lifestyle
CPT/HCPCS: 73130; 99202

== ENCOUNTER 2021-10-02 11:01 | Outpatient (REF) | payer OTHER, SELFPAY ==
[2021-10-02 14:38] LABS: Blood Urea Nitrogen 12 mg/dL (9-16); Estimated Glomerular Filt Rate > 60
== END 2021-10-02 11:02 | disposition home or self-care (01) ==
LOC: HO.HMGCLDS 11:01
PROVIDERS: Visit Provider Physician Assistant
DX: R79.89 Other specified abnormal findings of blood chemistry (principal)
CPT/HCPCS: 36415; 82565; 84520

== ENCOUNTER 2021-10-09 12:37 | Outpatient (REF) | payer OTHER, SELFPAY ==
--- NOTE | ~2021-10-09 | MR_ITS ---
EXAMINATION: MR HAND WITHOUT AND WITH CONTRAST, RIGHT CLINICAL INFORMATION: Right 5th metacarpal pain and pressure for 10 years. Focal, reproducible tenderness. COMPARISON: Most recent right hand radiograph dated 09/26/2021. TECHNIQUE: Multisequence MR imaging of the right hand was obtained before and after the IV administration of 10 mL Gadavist IV contrast on a high-field strength scanner. FINDINGS: BONE: Minimal increased T2 signal within the proximal aspect of the 5th metacarpal without associated abnormal T1 signal or postcontrast enhancement. Findings could represent minimal edema versus artifact. No additional abnormal marrow signal. MUSCLES/TENDONS: The visualized flexor and extensor tendons are intact. LIGAMENTS: The collateral ligaments are intact. SOFT TISSUES: Small 5th carpometacarpal joint effusion, partially visualized on the large [id number] imaging. Minimal adjacent soft tissue edema. MR/MR hand RT wo/w con IMPRESSION: 1. Small 5th carpometacarpal joint effusion with minimal adjacent soft tissue edema and possible minimal edema within the 5th metacarpal base. Findings may represent a mild infectious or inflammatory arthropathy. No associated osseous erosion. 2. Otherwise unremarkable examination.
== END 2021-10-09 12:38 | disposition home or self-care (01) ==
LOC: HO.MRI 12:37
PROVIDERS: PCP Nurse Practitioner Family; Visit Provider Orthopaedic Surgery
DX: M79.641 Pain in right hand (principal)
CPT/HCPCS: 73220; A9585

== ENCOUNTER → 2021-10-24 09:37 | Outpatient (BNVA) | payer OTHER, SELFPAY | PROVIDERS: PCP Nurse Practitioner Family; Visit Provider Nurse Practitioner Family | DX: Z51.81 Encounter for therapeutic drug level monitoring (principal); F11.20 Opioid dependence, uncomplicated | CPT/HCPCS: 99211 ==

== ENCOUNTER 2021-11-15 13:58 | Outpatient (REF) | payer OTHER, SELFPAY ==
[2021-11-15 14:51] LABS: Influenza A PCR NEGATIVE (Negative); Influenza B PCR NEGATIVE (Negative); Resp Syncy Virus RNA Qual PCR NEGATIVE (Negative); SARS COV2 PCR INHOUSE NEGATIVE (Negative)
== END 2021-11-15 13:59 | disposition home or self-care (01) ==
LOC: HO.LNP 13:58
PROVIDERS: Visit Provider Nurse Practitioner Family
DX: Z20.822 Contact with and (suspected) exposure to COVID-19 (principal); R51.9 Headache, unspecified
CPT/HCPCS: 0241U

== ENCOUNTER 2021-11-21 14:03 | Outpatient (REF) | payer OTHER, SELFPAY ==
[2021-11-21 16:09] LABS: MANUAL DIFF FLAG NO
[2021-11-21 16:13] LABS: Basophils Percent Auto 0.6 % (0-2); Eosinophils Absolute Auto 0.2 X10*3/uL (0.0-0.4); Eosinophils Percent Auto 2.3 % (0-4); Hematocrit 45.7 % (42.0-52.0); Hemoglobin 15.3 g/dl (14.0-18.0); Imm Gran Abs Auto 0.02 X10*3/uL (0.00-0.03); Imm Gran Pct Auto 0.3 % (0.0-0.4); Lymphocytes Absolute Auto 1.1 X10*3/uL (1.2-4.9); Lymphocytes Percent Auto 17.6 % (20-40); Mean Corpuscular HGB Conc 33.5 g/dl (31.0-36.0); Mean Corpuscular Hemoglobin 27.9 pg (27.0-33.0); Mean Corpuscular Volume 83.4 fL (80.0-98.0); Mean Platelet Volume 10.4 fL (9.4-12.4); Monocytes Absolute Auto 0.8 X10*3/uL (0.1-1.2); Monocytes Percent Auto 12.2 % (2-11); Neutrophils Absolute Auto 4.3 x10*3/uL (2.0-8.3); Platelet Count 248 X10*3/uL (160-400); Red Blood Count 5.48 X10*6/uL (4.60-5.80); Red Cell Distribution Width 15.1 % (11.0-16.0); White Blood Count 6.5 X10*3/uL (4.8-10.8)
[2021-11-21 16:37] LABS: Alanine Aminotransferase 42 U/L (0-40); Albumin Level 3.9 g/dL (3.5-5.0); Alkaline Phosphatase 50 U/L (39-117); Aspartate Amino Transferase 43 U/L (5-37); Bilirubin Direct 0.2 mg/dL (0.0-0.5); Bilirubin Total 0.6 mg/dL (0.0-1.0); Total Protein 7.1 g/dL (6.5-8.0)
[2021-11-21 16:58] LABS: Prostate Specific Antigen 0.58 ng/mL (<0.05-4.0)
[2021-11-21 17:10] LABS: Folate 13.4 ng/mL (> or = 4.0); Vitamin B12 510 pg/mL (200-900)
[2021-11-24 20:42] LABS: Estradiol Ultra Sensitive 7 pg/mL (< OR = 29)
[2021-11-26 18:46] LABS: Testosterone, Total 203 ng/dL (250-1100)
== END 2021-11-21 14:04 | disposition home or self-care (01) ==
LOC: HO.HMGCLDS 14:03
PROVIDERS: Absent Provider Urology; PCP Nurse Practitioner Family; Visit Provider Internal Medicine Gastroenterology
DX: Z12.5 Encounter for screening for malignant neoplasm of prostate (principal); E29.1 Testicular hypofunction; R74.01 Elevation of levels of liver transaminase levels; R74.8 Abnormal levels of other serum enzymes; K21.9 Gastro-esophageal reflux disease without esophagitis
CPT/HCPCS: 36415; 80076; 82607; 82670; 82746; 84153; 84403; 85025

== ENCOUNTER → 2021-11-22 10:12 | Outpatient (BNVA) | payer OTHER, SELFPAY | PROVIDERS: PCP Nurse Practitioner Family; Visit Provider Anesthesiology | DX: Z51.81 Encounter for therapeutic drug level monitoring (principal); M17.10 Unilateral primary osteoarthritis, unspecified knee; M54.2 Cervicalgia; M25.511 Pain in right shoulder; M19.011 Primary osteoarthritis, right shoulder; M25.561 Pain in right knee | CPT/HCPCS: 99212 ==

== ENCOUNTER → 2021-12-04 11:24 | Outpatient (BNVA) | payer OTHER, SELFPAY | PROVIDERS: PCP Nurse Practitioner Family; Referring Provider Nurse Practitioner Family; Visit Provider Internal Medicine Gastroenterology | DX: K21.9 Gastro-esophageal reflux disease without esophagitis (principal); R14.0 Abdominal distension (gaseous); R10.9 Unspecified abdominal pain; R74.01 Elevation of levels of liver transaminase levels; Z86.010 Personal history of colon polyps | CPT/HCPCS: 99212 ==

== ENCOUNTER 2021-12-11 14:40 | Outpatient (REF) | payer OTHER, SELFPAY ==
[2021-12-11 16:59] LABS: INTERNATIONAL NORM RATIO 1.1 (0.9-1.1); Prothrombin Time 12.3 SEC (9.9-13.0)
[2021-12-11 17:16] LABS: Vitamin D 25-OH Total 66.9 ng/mL (>30)
[2021-12-11 17:29] LABS: Folate 12.6 ng/mL (> or = 4.0)
[2021-12-12 18:31] LABS: Transglutaminase IgA <1.0 U/mL
[2021-12-13 13:41] LABS: Immunoglobulin A 314 mg/dL (47-310)
[2021-12-14 16:36] LABS: Zinc 55 mcg/dL (60-130)
== END 2021-12-11 14:41 | disposition home or self-care (01) ==
LOC: HO.HMGCLDS 14:40
PROVIDERS: PCP Nurse Practitioner Family; Visit Provider Internal Medicine Gastroenterology
DX: R74.01 Elevation of levels of liver transaminase levels (principal)
CPT/HCPCS: 36415; 82306; 82746; 82784; 84630; 85610; 86364

== ENCOUNTER → 2021-12-12 16:01 | Outpatient (BNVA) | payer OTHER, SELFPAY | PROVIDERS: PCP Nurse Practitioner Family; Visit Provider Urology ==

== ENCOUNTER → 2021-12-13 09:01 | Outpatient (BNVA) | payer OTHER, SELFPAY | PROVIDERS: PCP Nurse Practitioner Family; Visit Provider Anesthesiology | DX: Z51.81 Encounter for therapeutic drug level monitoring (principal); F11.20 Opioid dependence, uncomplicated; M17.10 Unilateral primary osteoarthritis, unspecified knee; M54.2 Cervicalgia; M25.511 Pain in right shoulder; M19.011 Primary osteoarthritis, right shoulder; M25.561 Pain in right knee | CPT/HCPCS: 99212 ==

== ENCOUNTER → 2022-01-10 09:20 | Outpatient (BNVA) | payer OTHER, SELFPAY | PROVIDERS: PCP Nurse Practitioner Family; Visit Provider Anesthesiology | DX: M17.11 Unilateral primary osteoarthritis, right knee (principal); M25.561 Pain in right knee; M54.2 Cervicalgia; M25.511 Pain in right shoulder; M19.011 Primary osteoarthritis, right shoulder; Z79.891 Long term (current) use of opiate analgesic | CPT/HCPCS: 99212 ==

== ENCOUNTER 2022-01-15 10:09 | Outpatient (REF) | payer OTHER, SELFPAY ==
[2022-01-15 10:40] LABS: Binax Internal Control QC Valid; Binax Now Covid-19 Ag Negative (Negative)
== END 2022-01-15 10:10 | disposition home or self-care (01) ==
LOC: HO.HMGCLDS 10:09
PROVIDERS: Absent Provider Internal Medicine Critical Care Medicine; PCP Nurse Practitioner Family; Visit Provider Physician Assistant
DX: Z13.89 Encounter for screening for other disorder (principal)

== ENCOUNTER → 2022-02-08 08:58 | Outpatient (BNVA) | payer OTHER, SELFPAY | PROVIDERS: PCP Nurse Practitioner Family; Visit Provider Anesthesiology | DX: Z51.81 Encounter for therapeutic drug level monitoring (principal); F11.20 Opioid dependence, uncomplicated; M17.10 Unilateral primary osteoarthritis, unspecified knee; M54.2 Cervicalgia; M25.511 Pain in right shoulder; M19.011 Primary osteoarthritis, right shoulder; M25.561 Pain in right knee | CPT/HCPCS: 99212 ==

== ENCOUNTER → 2022-03-08 09:59 | Outpatient (BNVA) | payer OTHER, SELFPAY | PROVIDERS: PCP Nurse Practitioner Family; Visit Provider Anesthesiology | DX: Z51.81 Encounter for therapeutic drug level monitoring (principal); F11.20 Opioid dependence, uncomplicated | CPT/HCPCS: 99211 ==

== ENCOUNTER 2022-04-05 10:13 | Outpatient (REF) | payer OTHER, SELFPAY ==
--- NOTE | ~2022-04-05 | XR_ITS ---
EXAMINATION: XR C-SPINE XR AP KNEES STANDING, BILATERAL XR KNEE, BILATERAL CLINICAL INFORMATION: OA changes. COMPARISON: None. TECHNIQUE: Bilateral knee AP standing one view. Each knee 3 views. Cervical spine 3 views. FINDINGS: AP BILATERAL KNEE STANDING: There is minimal loss of medial and lateral compartment joint space both knees but no bony erosive changes, loose bodies or soft tissue swelling. RIGHT KNEE: There is mild loss of patellofemoral compartment joint space with lateral subluxation of patella. A small lateral periarticular spur is suspected. There is mild superior joint effusion. No visible acute fracture or dislocation seen. LEFT KNEE: There is mild lateral patellar subluxation with lateral patellar spurring. No visible acute fracture, dislocation or subluxation seen. No bony erosive changes. The soft tissues are normal. CERVICAL SPINE: There is mild straightening of cervical lordosis. The vertebral heights and alignment are normal. There is mild loss of C4-C5, C5-C6 and C6-C7 disc heights with mild ventral spondylosis. No visible acute fracture, dislocation or lytic process seen. There are moderate ventral bridging osteophytes at C5-C6 and C6-C7 disc levels. The prevertebral soft tissues are normal. XR/XR cervical spine 3V IMPRESSION: Mild early degenerative changes in the tricompartments with lateral subluxation of patella in both knees. Minimal suprapatellar joint effusion. No loose bodies or bony erosive changes. No acute fracture. Degenerative disc changes C4-C5, C5-C6 and C6-C7 disc levels with ventral bridging osteophytes at the C5-C6 and C6-C7 disc levels. No visible acute fracture or dislocation seen.
--- NOTE | ~2022-04-05 | XR_ITS ---
EXAMINATION: XR C-SPINE XR AP KNEES STANDING, BILATERAL XR KNEE, BILATERAL CLINICAL INFORMATION: OA changes. COMPARISON: None. TECHNIQUE: Bilateral knee AP standing one view. Each knee 3 views. Cervical spine 3 views. FINDINGS: AP BILATERAL KNEE STANDING: There is minimal loss of medial and lateral compartment joint space both knees but no bony erosive changes, loose bodies or soft tissue swelling. RIGHT KNEE: There is mild loss of patellofemoral compartment joint space with lateral subluxation of patella. A small lateral periarticular spur is suspected. There is mild superior joint effusion. No visible acute fracture or dislocation seen. LEFT KNEE: There is mild lateral patellar subluxation with lateral patellar spurring. No visible acute fracture, dislocation or subluxation seen. No bony erosive changes. The soft tissues are normal. CERVICAL SPINE: There is mild straightening of cervical lordosis. The vertebral heights and alignment are normal. There is mild loss of C4-C5, C5-C6 and C6-C7 disc heights with mild ventral spondylosis. No visible acute fracture, dislocation or lytic process seen. There are moderate ventral bridging osteophytes at C5-C6 and C6-C7 disc levels. The prevertebral soft tissues are normal. XR/XR knee standing BI IMPRESSION: Mild early degenerative changes in the tricompartments with lateral subluxation of patella in both knees. Minimal suprapatellar joint effusion. No loose bodies or bony erosive changes. No acute fracture. Degenerative disc changes C4-C5, C5-C6 and C6-C7 disc levels with ventral bridging osteophytes at the C5-C6 and C6-C7 disc levels. No visible acute fracture or dislocation seen.
--- NOTE | ~2022-04-05 | XR_ITS ---
EXAMINATION: XR C-SPINE XR AP KNEES STANDING, BILATERAL XR KNEE, BILATERAL CLINICAL INFORMATION: OA changes. COMPARISON: None. TECHNIQUE: Bilateral knee AP standing one view. Each knee 3 views. Cervical spine 3 views. FINDINGS: AP BILATERAL KNEE STANDING: There is minimal loss of medial and lateral compartment joint space both knees but no bony erosive changes, loose bodies or soft tissue swelling. RIGHT KNEE: There is mild loss of patellofemoral compartment joint space with lateral subluxation of patella. A small lateral periarticular spur is suspected. There is mild superior joint effusion. No visible acute fracture or dislocation seen. LEFT KNEE: There is mild lateral patellar subluxation with lateral patellar spurring. No visible acute fracture, dislocation or subluxation seen. No bony erosive changes. The soft tissues are normal. CERVICAL SPINE: There is mild straightening of cervical lordosis. The vertebral heights and alignment are normal. There is mild loss of C4-C5, C5-C6 and C6-C7 disc heights with mild ventral spondylosis. No visible acute fracture, dislocation or lytic process seen. There are moderate ventral bridging osteophytes at C5-C6 and C6-C7 disc levels. The prevertebral soft tissues are normal. XR/XR knee LT 3V IMPRESSION: Mild early degenerative changes in the tricompartments with lateral subluxation of patella in both knees. Minimal suprapatellar joint effusion. No loose bodies or bony erosive changes. No acute fracture. Degenerative disc changes C4-C5, C5-C6 and C6-C7 disc levels with ventral bridging osteophytes at the C5-C6 and C6-C7 disc levels. No visible acute fracture or dislocation seen.
--- NOTE | ~2022-04-05 | XR_ITS ---
EXAMINATION: XR C-SPINE XR AP KNEES STANDING, BILATERAL XR KNEE, BILATERAL CLINICAL INFORMATION: OA changes. COMPARISON: None. TECHNIQUE: Bilateral knee AP standing one view. Each knee 3 views. Cervical spine 3 views. FINDINGS: AP BILATERAL KNEE STANDING: There is minimal loss of medial and lateral compartment joint space both knees but no bony erosive changes, loose bodies or soft tissue swelling. RIGHT KNEE: There is mild loss of patellofemoral compartment joint space with lateral subluxation of patella. A small lateral periarticular spur is suspected. There is mild superior joint effusion. No visible acute fracture or dislocation seen. LEFT KNEE: There is mild lateral patellar subluxation with lateral patellar spurring. No visible acute fracture, dislocation or subluxation seen. No bony erosive changes. The soft tissues are normal. CERVICAL SPINE: There is mild straightening of cervical lordosis. The vertebral heights and alignment are normal. There is mild loss of C4-C5, C5-C6 and C6-C7 disc heights with mild ventral spondylosis. No visible acute fracture, dislocation or lytic process seen. There are moderate ventral bridging osteophytes at C5-C6 and C6-C7 disc levels. The prevertebral soft tissues are normal. XR/XR knee RT 3V IMPRESSION: Mild early degenerative changes in the tricompartments with lateral subluxation of patella in both knees. Minimal suprapatellar joint effusion. No loose bodies or bony erosive changes. No acute fracture. Degenerative disc changes C4-C5, C5-C6 and C6-C7 disc levels with ventral bridging osteophytes at the C5-C6 and C6-C7 disc levels. No visible acute fracture or dislocation seen.
== END 2022-04-05 10:14 | disposition home or self-care (01) ==
LOC: HO.XRAY 10:13
PROVIDERS: PCP Nurse Practitioner Family; Visit Provider Anesthesiology
DX: M17.0 Bilateral primary osteoarthritis of knee (principal); M19.012 Primary osteoarthritis, left shoulder; Z51.81 Encounter for therapeutic drug level monitoring; Z79.899 Other long term (current) drug therapy
CPT/HCPCS: 72040; 73562; 73564; 73565; 99211

== ENCOUNTER → 2022-05-02 09:11 | Outpatient (BNVA) | payer OTHER, SELFPAY | PROVIDERS: PCP Nurse Practitioner Family; Visit Provider Anesthesiology | DX: Z51.81 Encounter for therapeutic drug level monitoring (principal); F11.20 Opioid dependence, uncomplicated | CPT/HCPCS: 99211 ==

== ENCOUNTER 2022-05-31 10:13 | Outpatient (REF) | payer OTHER, SELFPAY ==
[2022-05-31 11:17] LABS: Hematocrit 46.2 % (42.0-52.0); Hemoglobin 16.1 g/dl (14.0-18.0); Mean Corpuscular HGB Conc 34.8 g/dl (31.0-36.0); Mean Corpuscular Hemoglobin 30.5 pg (27.0-33.0); Mean Corpuscular Volume 87.5 fL (80.0-98.0); Mean Platelet Volume 9.4 fL (9.4-12.4); Platelet Count 214 X10*3/uL (160-400); Red Blood Count 5.28 X10*6/uL (4.60-5.80); Red Cell Distribution Width 14.7 % (11.0-16.0); White Blood Count 6.3 X10*3/uL (4.8-10.8)
[2022-05-31 11:57] LABS: Prostate Specific Antigen 0.82 ng/mL (<0.05-4.0)
[2022-05-31 12:08] LABS: Alanine Aminotransferase 90 U/L (0-40); Albumin Level 3.9 g/dL (3.5-5.0); Alkaline Phosphatase 46 U/L (39-117); Anion Gap 14 (12-20); Aspartate Amino Transferase 86 U/L (5-37); Bilirubin Total 0.7 mg/dL (0.0-1.0); Blood Urea Nitrogen 14 mg/dL (9-16); Calcium 9.4 mg/dL (8.4-10.2); Carbon Dioxide 27 mmol/L (22-29); Chloride 99 mmol/L (96-108); Cholesterol 157 mg/dL; Estimated Glomerular Filt Rate > 60; Glucose Fasting 114 mg/dL (60-99); HDL Cholesterol 56 mg/dL; LDL Cholesterol Calculated 84 mg/dl; Potassium 3.1 mmol/L (3.3-5.1); Sodium 137 mmol/L (135-145); Total Protein 6.7 g/dL (6.5-8.0); Triglycerides 87 mg/dL
[2022-06-06 11:36] LABS: Testosterone, Total 204 ng/dL (250-1100)
== END 2022-05-31 10:14 | disposition home or self-care (01) ==
LOC: HO.HMGCLDS 10:13
PROVIDERS: Absent Provider Internal Medicine Gastroenterology; PCP Nurse Practitioner Family; Visit Provider Urology
DX: Z12.5 Encounter for screening for malignant neoplasm of prostate (principal); M17.10 Unilateral primary osteoarthritis, unspecified knee; M54.2 Cervicalgia; M25.511 Pain in right shoulder; M19.011 Primary osteoarthritis, right shoulder; M25.561 Pain in right knee; E29.1 Testicular hypofunction
CPT/HCPCS: 36415; 80053; 80061; 84153; 84403; 85027; 99212

== ENCOUNTER 2022-06-11 19:44 | Emergency (ER) | payer OTHER, SELFPAY ==
--- NOTE | ~2022-06-11 | CT_ITS ---
EXAMINATION: CT ABDOMEN AND PELVIS WITHOUT CONTRAST CLINICAL INFORMATION: Right abdominal pain COMPARISON: 08/07/2021 TECHNIQUE: Multidetector volumetric imaging was performed from the superior aspect of the liver through the pubic symphysis. Sagittal and coronal reformatted images were obtained on the technologist's workstation. This CT examination was performed using dose optimization techniques as appropriate, variously including the following: *Automated exposure control *Adjustment of mA and/or kV according to patient size (this includes techniques or standardized protocols for targeted exams where dose is matched to indication/reason for exam; i.e. extremities or head) *Use of iterative reconstruction technique DLP: 599 mGy-cm FINDINGS: LUNG BASES: Long-term stability of a 6 mm subpleural nodule in the right lower lobe. This is benign and requires no further follow-up per Fleischner Society guidelines. LIVER, GALLBLADDER, AND BILIARY TREE: The liver is normal in size, shape, and attenuation. No focal hepatic lesion or biliary ductal dilatation is present. Cholelithiasis. No pericholecystic fluid or inflammation. PANCREAS: Unremarkable. SPLEEN: Unremarkable. ADRENAL GLANDS: Unremarkable. KIDNEYS AND URETERS: The kidneys are normal in size, shape, and attenuation. No hydronephrosis, hydroureter, or calculi seen. No perinephric stranding. BLADDER: Unremarkable. GASTROINTESTINAL TRACT: Pancolonic diverticulosis, without evidence of diverticulitis. ABDOMINAL WALL: No significant hernia is appreciated. LYMPH NODES: Normal. VASCULAR: Unremarkable. PELVIC VISCERA: Mild prostatomegaly. 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 Degenerative changes present throughout the spine. CT/CT abdomen pelvis wo con IMPRESSION: * No acute findings within the abdomen or pelvis. * Pancolonic diverticulosis without evidence of diverticulitis. * Additional chronic findings as above.
[2022-06-11 21:03] VITALS: BP 132/86; PULSE 92; RESP 18; TEMP 36.7; O2SAT 96; BMI 27.0
[2022-06-11 21:24] LABS: MANUAL DIFF FLAG NO
[2022-06-11 21:25] LABS: Basophils Absolute Auto 0.1 X10*3/uL (0.0-0.2); Basophils Percent Auto 0.5 % (0-2); Eosinophils Absolute Auto 0.1 X10*3/uL (0.0-0.4); Hematocrit 46.4 % (42.0-52.0); Hemoglobin 16.3 g/dl (14.0-18.0); Imm Gran Abs Auto 0.03 X10*3/uL (0.00-0.03); Imm Gran Pct Auto 0.3 % (0.0-0.4); Lymphocytes Absolute Auto 1.5 X10*3/uL (1.2-4.9); Lymphocytes Percent Auto 15.5 % (20-40); Mean Corpuscular HGB Conc 35.1 g/dl (31.0-36.0); Mean Corpuscular Hemoglobin 30.6 pg (27.0-33.0); Mean Corpuscular Volume 87.1 fL (80.0-98.0); Mean Platelet Volume 9.2 fL (9.4-12.4); Monocytes Absolute Auto 1.2 X10*3/uL (0.1-1.2); Monocytes Percent Auto 12.1 % (2-11); Neutrophils Absolute Auto 6.8 x10*3/uL (2.0-8.3); Neutrophils Percent Auto 70.6 % (45-73); Platelet Count 218 X10*3/uL (160-400); Red Blood Count 5.33 X10*6/uL (4.60-5.80); Red Cell Distribution Width 14.6 % (11.0-16.0); White Blood Count 9.7 X10*3/uL (4.8-10.8)
[2022-06-11 21:40] LABS: Ethanol 217 mg/dL
[2022-06-11 21:42] LABS: Amphetamine Screen Urine Not Detected (Not Detect); Barbiturates, Urine Not Detected (Not Detect); Benzodiazepines Screen Urine Not Detected (Not Detect); Cannabinoid Screen Urine Not Detected (Not Detect); Cocaine Screen Urine Not Detected (Not Detect); Fentanyl, urine Not Detected (Not Detect); Opiate Screen Urine Not Detected (Not Detect); Phencyclidine Screen Urine Not Detected (Not Detect)
[2022-06-11 21:43] LABS: Alanine Aminotransferase 98 U/L (0-40); Albumin Level 4.3 g/dL (3.5-5.0); Alkaline Phosphatase 59 U/L (39-117); Anion Gap 16 (12-20); Aspartate Amino Transferase 87 U/L (5-37); Bilirubin Total 1.1 mg/dL (0.0-1.0); Blood Urea Nitrogen 14 mg/dL (9-16); Calcium 9.2 mg/dL (8.4-10.2); Carbon Dioxide 27 mmol/L (22-29); Chloride 95 mmol/L (96-108); Creatinine Clr Calc Pharmacy 87.5; Estimated Glomerular Filt Rate > 60; Glucose Random 92 mg/dL (60-115); Potassium 3.8 mmol/L (3.3-5.1); Sodium 134 mmol/L (135-145); Total Protein 7.2 g/dL (6.5-8.0)
[2022-06-11 21:47] LABS: IDNOW Serial# 16C4AD1C
[2022-06-11 21:48] LABS: COVID-19 Test Negative (Negative)
[2022-06-12 01:04] VITALS: PULSE 98; RESP 16; O2SAT 96
--- NOTE | 2022-06-12 01:38 | ED.ABDPAIN ---
HPI - Abdominal Pain General Chief Complaint: Abdominal Pain Stated Complaint: Abd pain Time Seen by Provider: 06/12/22 01:22 Source: patient Mode of arrival: ambulatory Limitations: no limitations History of Present Illness HPI narrative: 52-year-old male came in for evaluation of nausea and abdominal pain. Patient been having nausea for a month after was started on sertraline, today started to have right lower quadrant abdominal pain that is tender to touch, patient was not able to apply seat belt because the pain in the right lower quadrant area, pain is associated with increase in nausea but no vomiting, normal bowel movement, pain is more less localized to the right side abdominal area. No fever, no chills. Related Data Home Medications Medication Instructions Recorded Confirmed ibuprofen 600 mg tablet 600 mg PO Q6-8H PRN pain 05/10/21 05/02/22 Previous Rx's Medication Instructions Recorded lidocaine 5 % topical patch 1 patch topical DAILY #30 ea 05/10/21 fluticasone propionate 230 2 puff inhalation BID 30 days #8 09/02/21 mcg-salmeterol 21 mcg/actuation grams HFA inhaler (Advair HFA) sildenafil 50 mg tablet 50 mg PO DAILY PRN sexual activity 10/13/21 30 days #30 tabs zolpidem 10 mg tablet 10 mg PO BEDTIME 30 days #30 tabs 10/16/21 pregabalin 100 mg capsule 100 mg PO TID 30 days #90 caps 10/25/21 naloxone 4 mg/actuation nasal spray 4 mg intranasal Q2M PRN opioid 11/22/21 overdose #2 ea testosterone 10 mg/0.5 1 pump transdermal DAILY 30 days 12/12/21 gram/actuation transdermal gel pump #60 grams nabumetone 500 mg tablet 500 mg PO BID PRN pain 90 days 01/09/22 #180 tabs omega-3 acid ethyl esters 1 gram 1 cap PO BID 90 days #180 caps 03/09/22 capsule sertraline 25 mg tablet 25 mg PO DAILY 30 days #30 tabs 03/12/22 amlodipine 5 mg tablet 5 mg PO DAILY #90 tabs 04/09/22 tiotropium bromide 1.25 2 puff PO DAILY 90 days #4 grams 04/10/22 mcg/actuation mist for inhalation ProAir HFA 90 mcg/actuation 2 puff PO Q4H PRN bronchospasm #17 04/15/22 aerosol inhaler (albuterol sulfate) grams atorvastatin 20 mg tablet 20 mg PO BEDTIME 90 days #90 tabs 05/08/22 chlorthalidone 25 mg tablet 25 mg PO QAM #90 tabs 05/08/22 omeprazole 40 mg capsule,delayed 40 mg PO DAILY #90 caps 05/08/22 release oxycodone 10 mg tablet 10 mg PO TID PRN pain 30 days #90 05/31/22 tabs potassium chloride 20 mEq 20 meq PO DAILY #30 tabs 05/31/22 tablet,extended release losartan 100 mg tablet 100 mg PO DAILY #90 tabs 06/05/22 terazosin 5 mg capsule 10 mg PO BEDTIME 90 days #180 caps 06/07/22 ondansetron 4 mg disintegrating 4 mg PO Q8H PRN nausea and 06/11/22 tablet vomiting 7 days #21 tabs Allergies Allergy/AdvReac Type Severity Reaction Status Date / Time No Known Allergies Allergy Verified 06/11/22 21:03 [No Known Allergies*] Review of Systems Review of Systems All other systems are reviewed and are negative Constitutional: Reports as per HPI and Reports no additional constitutional complaints Eyes: Reports as per HPI and Reports no additional eye complaints Reports system reviewed and no additional complaints, except as documented Cardiovascular: Reports as per HPI and Reports no additional cardiovascular complaints Respiratory: Reports as per HPI and Reports no additional respiratory complaints Gastrointestinal: Reports as per HPI and Reports no additional gastrointestinal complaints Genitourinary: Reports no additional female genitourinary complaints Musculoskeletal: Reports no additional musculoskeletal complaints Skin/Breast: Reports system reviewed and no additional complaints, except as docu Psychiatric: Reports no additional psychiatric complaints Endocrine: Reports no additional endocrine complaints Hematologic/Lymphatic: Reports no additional hematologic/lymphatic complaints Allergic/Immunologic: Reports no additional allergic/immunologic complaints Reports system reviewed and no additional complaints, except as documented and Reports Abnormal speech present [facility] Past Medical History Medical History Anxiety Cervicalgia Clubbing of nails Depression Hypogonadism in male Hypothyroidism Knee osteoarthritis Lumbar degenerative disc disease 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 Physical Exam ED Vital Signs: Vital Signs - 24 hr 06/11/22 21:03 06/12/22 01:04 06/12/22 02:00 Temperature 98.1 F 97.2 F Pulse Rate 92 98 79 Respiratory Rate 18 16 16 Blood Pressure 132/86 143/83 H Pulse Oximetry 96 96 98 Oxygen Delivery Method Room Air Room Air Room Air BMI result Body Mass Index 27.0 vital signs have been reviewed as appeared to be correct. Blood pressure normal. Heart rate normal. Respiration rate normal. Temperature normal. Oxygen saturation normal. Appearance: Alert. Oriented X3. No acute distress. Head: Normal external exam. Normocephalic. Atraumatic. No Ye signs noted. No raccoon eyes noted Eyes: PERRLA. EOMI. Conjunctiva and sclera normal. Eyelids normal. ENT: TM's Normal. Pharynx normal. Uvula midline. Moist mucous membranes. No trismus noted. No drooling noted. No muffled voice noted. Neck: Normal inspection. Neck supple. FROM. No adenopathy. Thyroid Normal. No meningeal signs. No neck mass noted. CVS: Normal heart rate and rhythm. Heart sound normal. No murmurs noted. Pulses normal throughout. Respiratory: No respiratory distress. Painless inspiration. Breath sounds normal. No wheezes/rales/rhonchi noted. Chest nontender. No accessory muscle usage noted or decreased air movement noted. Abdomen: Soft and nontender. Bowel sounds normal in all 4 quadrants. No distention noted. No organomegaly noted. No visible injury noted. Back: No CVA tenderness. Full range of motion noted. Skin: Skin warm and dry. Normal skin color. Normal skin turgor. No rashes/lesions/lacerations noted. Extremities: No lower extremity edema. Extremities exhibit normal range of motion. Extremities nontender. Neuro: Oriented X 3. Cranial nerve exam: II-XII are grossly intact No motor deficit. No sensory deficit. Reflexes normal. Course Course Course Narrative: patient eloped before re-evaluation however patient had a negative labs and CT of the abdomen and pelvis. MDM - Abdominal Pain Medical Records Attestation: I reviewed the patient's medical records. Lab Data Attestation: I reviewed the patient's lab results. Result diagrams: 06/11/22 21:15 06/11/22 21:15 Labs: Lab Results 06/11/22 06/11/22 06/11/22 Range/Units 21:12 21:12 21:15 WBC 9.7 (4.8-10.8) X10*3/uL RBC 5.33 (4.60-5.80) X10*6/uL Hgb 16.3 (14.0-18.0) g/dl Hct 46.4 (42.0-52.0) % MCV 87.1 (80.0-98.0) fL MCH 30.6 (27.0-33.0) pg MCHC 35.1 (31.0-36.0) g/dl RDW 14.6 (11.0-16.0) % Plt Count 218 (160-400) X10*3/uL MPV 9.2 L (9.4-12.4) fL Immature Gran % (Auto) 0.3 (0.0-0.4) % Neut % (Auto) 70.6 (45-73) % Lymph % (Auto) 15.5 L (20-40) % [place] % (Auto) 12.1 H (2-11) % Eos % (Auto) 1.0 (0-4) % Baso % (Auto) 0.5 (0-2) % Lymph # (Auto) 1.5 (1.2-4.9) X10*3/uL [place] # (Auto) 1.2 (0.1-1.2) X10*3/uL Eos # (Auto) 0.1 (0.0-0.4) X10*3/uL Baso # (Auto) 0.1 (0.0-0.2) X10*3/uL Abs Immat Gran (auto) 0.03 (0.00-0.03) X10*3/uL Absolute Neuts (auto) 6.8 (2.0-8.3) x10*3/uL Absolute Nucleated RBC 0.000 (0.0-0.012) X10*3/uL Nucleated RBC % (auto) 0.0 (0.0-0.2) /100WBC Sodium (135-145) mmol/L Potassium (3.3-5.1) mmol/L Chloride (96-108) mmol/L Carbon Dioxide (22-29) mmol/L Anion Gap (12-20) BUN (9-16) mg/dL Creatinine (0.5-1.4) mg/dL Estim Creat Clear Calc Estimated GFR Random Glucose (60-115) mg/dL Calcium (8.4-10.2) mg/dL Total Bilirubin (0.0-1.0) mg/dL AST (5-37) U/L ALT (0-40) U/L Alkaline Phosphatase (39-117) U/L Total Protein (6.5-8.0) g/dL Albumin (3.5-5.0) g/dL Urine Opiates Screen Not Detected (Not Detect) Urine Fentanyl Screen Not Detected (Not Detect) Ur Barbiturates Screen Not Detected (Not Detect) Ur Phencyclidine Scrn Not Detected (Not Detect) Ur Amphetamines Screen Not Detected (Not Detect) U Benzodiazepines Scrn Not Detected (Not Detect) Urine Cocaine Screen Not Detected (Not Detect) U Marijuana (THC) Screen Not Detected (Not Detect) Ethyl Alcohol mg/dL COVID-19 ([facility]) Negative (Negative) COVID-19 Clin Com See Note 06/11/22 06/11/22 Range/Units 21:15 21:15 WBC (4.8-10.8) X10*3/uL RBC (4.60-5.80) X10*6/uL Hgb (14.0-18.0) g/dl Hct (42.0-52.0) % MCV (80.0-98.0) fL MCH (27.0-33.0) pg MCHC (31.0-36.0) g/dl RDW (11.0-16.0) % Plt Count (160-400) X10*3/uL MPV (9.4-12.4) fL Immature Gran % (Auto) (0.0-0.4) % Neut % (Auto) (45-73) % Lymph % (Auto) (20-40) % [place] % (Auto) (2-11) % Eos % (Auto) (0-4) % Baso % (Auto) (0-2) % Lymph # (Auto) (1.2-4.9) X10*3/uL [place] # (Auto) (0.1-1.2) X10*3/uL Eos # (Auto) (0.0-0.4) X10*3/uL Baso # (Auto) (0.0-0.2) X10*3/uL Abs Immat Gran (auto) (0.00-0.03) X10*3/uL Absolute Neuts (auto) (2.0-8.3) x10*3/uL Absolute Nucleated RBC (0.0-0.012) X10*3/uL Nucleated RBC % (auto) (0.0-0.2) /100WBC Sodium 134 L (135-145) mmol/L Potassium 3.8 D (3.3-5.1) mmol/L Chloride 95 L (96-108) mmol/L Carbon Dioxide 27 (22-29) mmol/L Anion Gap 16 (12-20) BUN 14 (9-16) mg/dL Creatinine 1.09 (0.5-1.4) mg/dL Estim Creat Clear Calc 87.5 Estimated GFR > 60 Random Glucose 92 (60-115) mg/dL Calcium 9.2 (8.4-10.2) mg/dL Total Bilirubin 1.1 H (0.0-1.0) mg/dL AST 87 H (5-37) U/L ALT 98 H (0-40) U/L Alkaline Phosphatase 59 D (39-117) U/L Total Protein 7.2 (6.5-8.0) g/dL Albumin 4.3 (3.5-5.0) g/dL Urine Opiates Screen (Not Detect) Urine Fentanyl Screen (Not Detect) Ur Barbiturates Screen (Not Detect) Ur Phencyclidine Scrn (Not Detect) Ur Amphetamines Screen (Not Detect) U Benzodiazepines Scrn (Not Detect) Urine Cocaine Screen (Not Detect) U Marijuana (THC) Screen (Not Detect) Ethyl Alcohol 217 mg/dL COVID-19 ([facility]) (Negative) COVID-19 Clin Com Imaging Data Abdomen and pelvis CT: Attestation: I personally reviewed and interpreted this imaging study as follows: Radiologist's impression: *? No acute findings within the abdomen or pelvis. *? Pancolonic diverticulosis without evidence of diverticulitis. *? Additional chronic findings as above. Discharge Plan Discharge Clinical Impression: Abdominal pain Patient Disposition: Elopement Prescriptions: No Action Advair HFA 230-21 mcg/actuation HFA aerosol inhaler 2 puff inhalation BID 30 Days Qty: 8 8RF sildenafil 50 mg tablet 50 mg PO DAILY PRN (Reason: sexual activity) 30 Days Qty: 30 5RF Rx Instructions: administer 30 minutes to 4 hours before activity zolpidem 10 mg tablet 10 mg PO BEDTIME 30 Days Qty: 30 3RF pregabalin 100 mg capsule 100 mg PO TID 30 Days Qty: 90 1RF nabumetone 500 mg tablet 500 mg PO BID PRN (Reason: pain) 90 Days Qty: 180 0RF Rx Instructions: do not take with ibuprofen omega-3 acid ethyl esters 1 gram capsule 1 cap PO BID 90 Days Qty: 180 0RF sertraline 25 mg tablet 25 mg PO DAILY 30 Days Qty: 30 3RF amlodipine 5 mg tablet 5 mg PO DAILY Qty: 90 0RF Rx Instructions: 1 tablet Orally Once a day tiotropium bromide 1.25 mcg/actuation mist 2 puff PO DAILY 90 Days Qty: 4 3RF albuterol sulfate [ProAir HFA] 90 mcg/actuation HFA aerosol inhaler 2 puff PO Q4H PRN (Reason: bronchospasm) Qty: 17 5RF atorvastatin 20 mg tablet 20 mg PO BEDTIME 90 Days Qty: 90 0RF chlorthalidone 25 mg tablet 25 mg PO QAM Qty: 90 0RF omeprazole 40 mg capsule,delayed release(DR/EC) 40 mg PO DAILY Qty: 90 0RF potassium chloride 20 mEq tablet extended release 20 meq PO DAILY Qty: 30 0RF losartan 100 mg tablet 100 mg PO DAILY Qty: 90 0RF terazosin 5 mg capsule 10 mg PO BEDTIME 90 Days Qty: 180 1RF ondansetron 4 mg tablet,disintegrating 4 mg PO Q8H PRN (Reason: nausea and vomiting) 7 Days Qty: 21 0RF ibuprofen 600 mg tablet 600 mg PO Q6-8H PRN (Reason: pain) lidocaine 5 % adhesive patch,medicated 1 patch topical DAILY Qty: 30 0RF Rx Instructions: leave on most painful area for up to 12 hrs testosterone 10 mg/0.5 gram /actuation gel in metered-dose pump 1 pump transdermal DAILY 30 Days Qty: 60 5RF oxycodone 10 mg tablet 10 mg PO TID PRN (Reason: pain) 30 Days Qty: 90 0RF Rx Instructions: Do not take oxycodone within 2 hours of HS naloxone 4 mg/actuation spray,non-aerosol 4 mg intranasal Q2M PRN (Reason: opioid overdose) Qty: 2 0RF Rx Instructions: spray 1 dose into ONE nostril; alternate nostrils w each dose until help arrives Interventions: ED Discharge Assessment Last Done: 06/12/22 02:47 Discharge Date/Time: 06/12/22 02:48
[2022-06-12 02:00] VITALS: BP 143/83; PULSE 79; RESP 16; TEMP 36.2; O2SAT 98
--- NOTE | 2022-06-12 02:05 | PC.NURSE ---
pt restless, asking to go outside for a few minutes. this RN told pt he cannot leave ER and come back. pt expressing wanting to leave, notified.
--- NOTE | 2022-06-12 02:32 | PC.NURSE ---
pt continues to be restless, standing in doorway asking to leave. pt reassured MD will be in soon to discuss CT result
--- NOTE | 2022-06-12 02:46 | PC.NURSE ---
pt left the ER prior to being discharged
== END 2022-06-12 02:48 | disposition left against medical advice (07) ==
PROVIDERS: Emergency Provider Emergency Medicine; PCP Nurse Practitioner Family
DX: R10.9 Unspecified abdominal pain (principal); Z20.822 Contact with and (suspected) exposure to COVID-19; I10 Essential (primary) hypertension; E78.5 Hyperlipidemia, unspecified; Z87.820 Personal history of traumatic brain injury; Z79.899 Other long term (current) drug therapy; Z79.02 Long term (current) use of antithrombotics/antiplatelets
CPT/HCPCS: 36415; 74176; 80053; 80307; 82077; 85025; 87635; 99284

== ENCOUNTER → 2022-06-26 09:09 | Outpatient (BNVA) | payer OTHER, SELFPAY | PROVIDERS: PCP Nurse Practitioner Family; Visit Provider Urology | DX: E29.1 Testicular hypofunction (principal) | CPT/HCPCS: 96372 ==

== ENCOUNTER 2022-06-26 17:28 | Emergency (ER) | payer OTHER, SELFPAY ==
[2022-06-26 18:46] VITALS: BP 104/70; PULSE 115; RESP 19; TEMP 36.9; O2SAT 96; BMI 27.0
[2022-06-26 19:07] LABS: MANUAL DIFF FLAG NO
[2022-06-26 19:16] LABS: Appearance Urine Clear; Color Urine DK YELLOW; Glucose Urine UA Negative (Negative); Leukocyte Esterase Urine Negative (Negative); Nitrite Urine Negative (Negative); Specific Gravity - Urine 1.025 (1.005-1.025); Urine Blood Negative (Negative); Urine Ketones Trace mg/dL (Negative); Urine Protein Negative (Neg-Trace)
[2022-06-26 19:16] LABS: Basophils Absolute Auto 0.1 X10*3/uL (0.0-0.2); Basophils Percent Auto 0.9 % (0-2); Eosinophils Absolute Auto 0.1 X10*3/uL (0.0-0.4); Eosinophils Percent Auto 1.1 % (0-4); Hematocrit 43.4 % (42.0-52.0); Hemoglobin 15.2 g/dl (14.0-18.0); Imm Gran Abs Auto 0.03 X10*3/uL (0.00-0.03); Imm Gran Pct Auto 0.3 % (0.0-0.4); Lymphocytes Absolute Auto 1.6 X10*3/uL (1.2-4.9); Lymphocytes Percent Auto 17.8 % (20-40); Mean Corpuscular Hemoglobin 30.7 pg (27.0-33.0); Mean Corpuscular Volume 87.7 fL (80.0-98.0); Mean Platelet Volume 9.3 fL (9.4-12.4); Monocytes Percent Auto 11.2 % (2-11); Neutrophils Absolute Auto 6.1 x10*3/uL (2.0-8.3); Neutrophils Percent Auto 68.7 % (45-73); Platelet Count 186 X10*3/uL (160-400); Red Blood Count 4.95 X10*6/uL (4.60-5.80); Red Cell Distribution Width 14.9 % (11.0-16.0); White Blood Count 8.8 X10*3/uL (4.8-10.8)
[2022-06-26 19:26] LABS: Alanine Aminotransferase 78 U/L (0-40); Albumin Level 3.9 g/dL (3.5-5.0); Alkaline Phosphatase 47 U/L (39-117); Anion Gap 15 (12-20); Aspartate Amino Transferase 99 U/L (5-37); Bilirubin Total 0.8 mg/dL (0.0-1.0); Blood Urea Nitrogen 14 mg/dL (9-16); Calcium 8.8 mg/dL (8.4-10.2); Carbon Dioxide 29 mmol/L (22-29); Chloride 97 mmol/L (96-108); Creatinine Clr Calc Pharmacy 76.9; Estimated Glomerular Filt Rate > 60; Ethanol 233 mg/dL; Glucose Random 101 mg/dL (60-115); Potassium 3.2 mmol/L (3.3-5.1); Sodium 138 mmol/L (135-145); Total Protein 6.5 g/dL (6.5-8.0)
[2022-06-26 19:30] LABS: Amphetamine Screen Urine Not Detected (Not Detect); Barbiturates, Urine Not Detected (Not Detect); Benzodiazepines Screen Urine Not Detected (Not Detect); Cannabinoid Screen Urine Not Detected (Not Detect); Cocaine Screen Urine Not Detected (Not Detect); Fentanyl, urine Not Detected (Not Detect); Opiate Screen Urine POSITIVE (Not Detect); Phencyclidine Screen Urine Not Detected (Not Detect)
[2022-06-26 20:23] VITALS: BP 99/65; PULSE 95; O2SAT 96
--- NOTE | 2022-06-26 21:03 | ED_ITS ---
HPI - General Adult General Chief complaint: General Medical Stated complaint: rehab Time Seen by Provider: 06/26/22 20:55 Source: patient Mode of arrival: ambulatory Limitations: no limitations History of Present Illness HPI narrative: This is a 52-year-old male past medical history significant for sleep apnea, ar thritis, PTSD, asthma, hypothyroidism, hypogonadism presenting to the emergency department seeking detox. Patient tells me that over the past few days he has noticed that he has been getting some abdominal discomfort, nausea, shakiness, diaphoresis, headache, he was evaluated by his PCP today who is concerned for possible alcohol withdrawal. Patient reports that recently he has been experiencing anxiety and depression status post his father's that occurred approximately a month ago. He tells me since his father he has been drinking daily, he tells me he drinks about 500 mL of 100 proof a night and sometimes he has a few nips and shelters with this. He tells me he notices he starts having abdominal discomfort, nausea, shakiness, diaphoresis and headaches when he stops drinking or the alcohol wears off and gets better when he drinks. He tells me his last drink was at around 16:00, he tells me he took 2 shots of 100 proof. He denies any past history of alcohol withdrawal. He denies visual, auditory and tactile hallucinations. Denies suicidal and homicidal ideation. Saskia bejarano does however report anxiety and depression due to increasing life stressors. He is seeking help and would like information on detox. At this time he denies any medical complaints. He does report a recent medication change, he tells me a few weeks ago he was started on sertraline. Related Data Home Medications Medication Instructions Recorded Confirmed ibuprofen 600 mg tablet 600 mg PO Q6-8H PRN pain 05/10/21 06/25/22 Previous Rx's Medication Instructions Recorded lidocaine 5 % topical patch 1 patch topical DAILY #30 ea 05/10/21 fluticasone propionate 230 2 puff inhalation BID 30 days #8 09/02/21 mcg-salmeterol 21 mcg/actuation grams HFA inhaler (Advair HFA) sildenafil 50 mg tablet 50 mg PO DAILY PRN sexual activity 10/13/21 30 days #30 tabs zolpidem 10 mg tablet 10 mg PO BEDTIME 30 days #30 tabs 10/16/21 pregabalin 100 mg capsule 100 mg PO TID 30 days #90 caps 10/25/21 naloxone 4 mg/actuation nasal spray 4 mg intranasal Q2M PRN opioid 11/22/21 overdose #2 ea nabumetone 500 mg tablet 500 mg PO BID PRN pain 90 days 01/09/22 #180 tabs sertraline 25 mg tablet 25 mg PO DAILY 30 days #30 tabs 03/12/22 amlodipine 5 mg tablet 5 mg PO DAILY #90 tabs 04/09/22 tiotropium bromide 1.25 2 puff PO DAILY 90 days #4 grams 04/10/22 mcg/actuation mist for inhalation ProAir HFA 90 mcg/actuation 2 puff PO Q4H PRN bronchospasm #17 04/15/22 aerosol inhaler (albuterol sulfate) grams atorvastatin 20 mg tablet 20 mg PO BEDTIME 90 days #90 tabs 05/08/22 chlorthalidone 25 mg tablet 25 mg PO QAM #90 tabs 05/08/22 omeprazole 40 mg capsule,delayed 40 mg PO DAILY #90 caps 05/08/22 release oxycodone 10 mg tablet 10 mg PO TID PRN pain 30 days #90 05/31/22 tabs potassium chloride 20 mEq 20 meq PO DAILY #30 tabs 05/31/22 tablet,extended release terazosin 5 mg capsule 10 mg PO BEDTIME 90 days #180 caps 06/07/22 ondansetron 4 mg disintegrating 4 mg PO Q8H PRN nausea and 06/11/22 tablet vomiting 7 days #21 tabs needle (disp) 18 G 18 gauge x 1 #30 ea 06/13/22 12 (BD Regular Bevel [place]) needle (disp) 22 G 22 gauge x 1 #30 ea 06/13/22 1/2 (BD Regular Bevel [place]) syringe (disposable) 1 mL (BD #30 ea 06/13/22 Luer-Doug Syringe) testosterone cypionate 200 mg/mL 80 mg (0.4 mL) subcut QWEEK 4 06/13/22 intramuscular oil weeks #2 mL (Depo-Testosterone) omega-3 acid ethyl esters 1 gram 1 cap PO BID 90 days #180 caps 06/18/22 capsule irbesartan 75 mg tablet 75 mg PO DAILY 30 days #30 tabs 06/26/22 Allergies Allergy/AdvReac Type Severity Reaction Status Date / Time No Known Allergies Allergy Verified 06/26/22 18:46 [No Known Allergies*] Review of Systems Review of Systems: Constitutional : No Weight loss, No Fever, No Chills, No Fatigue, No Malaise ENT/Mouth : No sore throat, No Rhinorrhea Eyes: No Eye Pain, No Swelling, No Redness Cardiovascular : No Chest Pain, No SOB, No Dyspnea on Exertion, No Orthopnea, No Edema, No Palpitations Respiratory : No Cough, No Sputum, No Wheezing Gastrointestinal : No Nausea, No Vomiting, No Diarrhea, No Constipation, No ab dominal Pain, No Hematochezia, No Melena Genitourinary : No Dysuria, No Urinary Frequency, No Hematuria, Musculoskeletal : No joint pain, No Myalgias, No Joint Swelling Skin : No Skin Lesions, No rash Neuro : No Weakness, No Numbness, No Dizziness, No Headache Psych : + Anxiety/Panic, + Depression, No SI or HI All other systems reviewed and are negative Yes all other systems are reviewed and are negative [facility] Past Medical History Attestation statement: The following information was validated with the patient. 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 Physical Exam ED Vital Signs: Vital Signs - 24 hr 06/26/22 18:46 06/26/22 20:23 06/26/22 22:41 Temperature 98.4 F 98.4 F Pulse Rate 115 H 95 102 H Respiratory Rate 19 18 Blood Pressure 104/70 99/65 128/78 Pulse Oximetry 96 96 95 Oxygen Delivery Method Room Air Room Air Room Air BMI result Body Mass Index 27.0 vss Appearance: Alert.? Oriented X3.? No acute distress.? Head: Normocephalic, atraumatic, no step-offs or deformities Eyes: Pupils equal, round and reactive to light.? ENT: Pharynx normal.? Neck: Normal inspection.? Neck supple.? CVS: Normal heart rate and rhythm.? Pulses normal.? Respiratory: No respiratory distress.? Breath sounds normal.? Abdomen: Soft and nontender.? Skin: Skin warm and dry.? Normal skin color.? Normal skin turgor.? Extremities: No lower extremity edema.? No calf ttp. 5/5 strength to bilateral upper and lower extremities Back: No midline tenderness, no C-spine tenderness, full range of motion, no CVA tenderness bilaterally Neuro: Oriented X 3.? No motor deficit.? No sensory deficit. CN 2-12 intact Course Reevaluation(s) Reevaluation #1: Patient's CBC within normal limits. Chemistry with a slightly low potassium, 20 minutes medical equivalents of potassium orally were given to patient. Patient's transaminases elevated at baseline. Lipase within normal limits unlikely pancreatitis. Patient now complaining of some bilateral lower abdominal pain however he is not tender on exam. I did do a chart review on this patient and he had similar complaints a few weeks ago, patient had a normal CT of the abdomen and pelvis on 06/12/2022. Urine clean. Urine toxicology positive for opiates. Ethanol level 233. Patient was evaluated by the behavioral health who recommends detox for patient. However patient became anxious and said that he did not expect to have to go somewhere for detox and he feels like it is too extensive for him to have to stay somewhere for multiple days, refusing to stay for further evaluation and treatment as necessary. I explained him he can go into acute alcohol withdrawal on it may require further intervention explained him this can be life- threatening. He tells me that he [facility] that [facility] has to [facility] he would not like to go to detox. He tells me he was under the impression that he was going to be evaluated tomorrow morning, and then he would stay here for a day or 2 and then he would be able to go home. I explained to patient that this is not have this works. I was also very clear with him from the beginning of how the process works. I explained him he had to get medically cleared 1st and then he would be evaluated by the behavioral health team and/or wellness health coach is. At this time patient denying suicidal and homicidal ideation to myself and N. Patient requesting to leave very anxious at this time. At this time patient will be leaving against medical advice as patient is at high risk of alcohol withdrawal syndrome. Refusing any further medical intervention or laboratory studies or hospital admission is necessary he tells me he does not have time for this. To note no valid reason to place patient on section 12. Denies SI and HI A&O X4. At this time patient will be discharged home, patient tells [facility] that he has outpatient providers. As patient is not the best historian and continues to drink I do not feel comfortable discharging patient home on Librium as this can cause respiratory depression and he tells me that he drinks to com his feelings. At this time patient will be discharged home with outpatient resources. Again patient will be leaving against medical advice, went over risks versus benefits. He verbalizes understanding. Time: 01:11 Reevaluation #2: Patient is getting a safe ride home from friend. Time: 01:15 Medical Decision Making [facility] Narrative Medical decision making narrative: 2100 52 year old male presents with acute alcohol intoxication, anxiety, depression and seeking detox. Physical examination benign. CIWA 0. No abdominal tenderness on exam, no need for imaging. At this time is basic labs, urine, ethanol. Will be evaluated by the behavioral health team, and wellness health coach is. Medical Records Medical records reviewed: Yes I reviewed the patient's medical records. Lab Data Lab results reviewed: Yes I reviewed the patient's lab results. Result diagrams: 06/26/22 18:56 06/26/22 18:56 Labs: Lab Results 06/26/22 06/26/22 06/26/22 Range/Units 18:56 18:56 19:07 WBC 8.8 (4.8-10.8) X10*3/uL RBC 4.95 (4.60-5.80) X10*6/uL Hgb 15.2 (14.0-18.0) g/dl Hct 43.4 (42.0-52.0) % MCV 87.7 (80.0-98.0) fL MCH 30.7 (27.0-33.0) pg MCHC 35.0 (31.0-36.0) g/dl RDW 14.9 (11.0-16.0) % Plt Count 186 (160-400) X10*3/uL MPV 9.3 L (9.4-12.4) fL Immature Gran % (Auto) 0.3 (0.0-0.4) % Neut % (Auto) 68.7 (45-73) % Lymph % (Auto) 17.8 L (20-40) % [place] % (Auto) 11.2 H (2-11) % Eos % (Auto) 1.1 (0-4) % Baso % (Auto) 0.9 (0-2) % Lymph # (Auto) 1.6 (1.2-4.9) X10*3/uL [place] # (Auto) 1.0 (0.1-1.2) X10*3/uL Eos # (Auto) 0.1 (0.0-0.4) X10*3/uL Baso # (Auto) 0.1 (0.0-0.2) X10*3/uL Abs Immat Gran (auto) 0.03 (0.00-0.03) X10*3/uL Absolute Neuts (auto) 6.1 (2.0-8.3) x10*3/uL Absolute Nucleated RBC 0.000 (0.0-0.012) X10*3/uL Nucleated RBC % (auto) 0.0 (0.0-0.2) /100WBC Sodium 138 (135-145) mmol/L Potassium 3.2 L (3.3-5.1) mmol/L Chloride 97 (96-108) mmol/L Carbon Dioxide 29 (22-29) mmol/L Anion Gap 15 (12-20) BUN 14 (9-16) mg/dL Creatinine 1.24 (0.5-1.4) mg/dL Estim Creat Clear Calc 76.9 Estimated GFR > 60 Random Glucose 101 (60-115) mg/dL Calcium 8.8 (8.4-10.2) mg/dL Total Bilirubin 0.8 (0.0-1.0) mg/dL AST 99 H (5-37) U/L ALT 78 H (0-40) U/L Alkaline Phosphatase 47 D (39-117) U/L Total Protein 6.5 (6.5-8.0) g/dL Albumin 3.9 (3.5-5.0) g/dL Lipase 61 (8-78) U/L Urine Color DK YELLOW Urine Appearance Clear Urine pH 6.0 (5.0-8.0) Ur Specific [place] 1.025 (1.005-1.025) Urine Protein Negative (Neg-Trace) mg/dL Urine Glucose (UA) Negative (Negative) mg/dL Urine Ketones Trace (Negative) mg/dL Urine Blood Negative (Negative) Urine Nitrite Negative (Negative) Ur Leukocyte Esterase Negative (Negative) Urine Opiates Screen (Not Detect) Urine Fentanyl Screen (Not Detect) Ur Barbiturates Screen (Not Detect) Ur Phencyclidine Scrn (Not Detect) Ur Amphetamines Screen (Not Detect) U Benzodiazepines Scrn (Not Detect) Urine Cocaine Screen (Not Detect) U Marijuana (THC) Screen (Not Detect) Ethyl Alcohol 233 mg/dL 06/26/22 Range/Units 19:07 WBC (4.8-10.8) X10*3/uL RBC (4.60-5.80) X10*6/uL Hgb (14.0-18.0) g/dl Hct (42.0-52.0) % MCV (80.0-98.0) fL MCH (27.0-33.0) pg MCHC (31.0-36.0) g/dl RDW (11.0-16.0) % Plt Count (160-400) X10*3/uL MPV (9.4-12.4) fL Immature Gran % (Auto) (0.0-0.4) % Neut % (Auto) (45-73) % Lymph % (Auto) (20-40) % [place] % (Auto) (2-11) % Eos % (Auto) (0-4) % Baso % (Auto) (0-2) % Lymph # (Auto) (1.2-4.9) X10*3/uL [place] # (Auto) (0.1-1.2) X10*3/uL Eos # (Auto) (0.0-0.4) X10*3/uL Baso # (Auto) (0.0-0.2) X10*3/uL Abs Immat Gran (auto) (0.00-0.03) X10*3/uL Absolute Neuts (auto) (2.0-8.3) x10*3/uL Absolute Nucleated RBC (0.0-0.012) X10*3/uL Nucleated RBC % (auto) (0.0-0.2) /100WBC Sodium (135-145) mmol/L Potassium (3.3-5.1) mmol/L Chloride (96-108) mmol/L Carbon Dioxide (22-29) mmol/L Anion Gap (12-20) BUN (9-16) mg/dL Creatinine (0.5-1.4) mg/dL Estim Creat Clear Calc Estimated GFR Random Glucose (60-115) mg/dL Calcium (8.4-10.2) mg/dL Total Bilirubin (0.0-1.0) mg/dL AST (5-37) U/L ALT (0-40) U/L Alkaline Phosphatase (39-117) U/L Total Protein (6.5-8.0) g/dL Albumin (3.5-5.0) g/dL Lipase (8-78) U/L Urine Color Urine Appearance Urine pH (5.0-8.0) Ur Specific [place] (1.005-1.025) Urine Protein (Neg-Trace) mg/dL Urine Glucose (UA) (Negative) mg/dL Urine Ketones (Negative) mg/dL Urine Blood (Negative) Urine Nitrite (Negative) Ur Leukocyte Esterase (Negative) Urine Opiates Screen POSITIVE H (Not Detect) Urine Fentanyl Screen Not Detected (Not Detect) Ur Barbiturates Screen Not Detected (Not Detect) Ur Phencyclidine Scrn Not Detected (Not Detect) Ur Amphetamines Screen Not Detected (Not Detect) U Benzodiazepines Scrn Not Detected (Not Detect) Urine Cocaine Screen Not Detected (Not Detect) U Marijuana (THC) Screen Not Detected (Not Detect) Ethyl Alcohol mg/dL Critical Care Time Critical Care Time Critical Care Time: No Discharge Plan Discharge Clinical Impression: Alcohol intoxication, Depression, Anxiety, Abdominal discomfort, bilateral lower quadrant, Left against medical advice Patient Disposition: Left Against Medical Advice Instructions: Depression (ED), Alcohol Intoxication (ED), Against Medical Advice (ED), Anxiety (ED) Additional Instructions: Take your medications as prescribed. If you were prescribed antibiotics today, it is important that you take your medication to their entirety, do not skip any doses, do not finish them early. Follow-up with your primary care provider this week. Return to the emergency department with new or worsening symptoms. Such as fevers, chills, chest pain, shortness of breath, nausea, vomiting, dizziness, headache, vision changes, lethargy In case of emergency call 911 You decided to leave against medical advice meaning you understand the risks that go along with leaving against medical advice. You are at high risk of withdrawing from alcohol therefore we recommended to go to detox and stay for further evaluation and treatment if necessary. However your refusing. Alcohol withdrawal can lead to difficulties with breathing, cardiac issues, seizures, altered mental status, , decreased quality of life. Please return if you change your mind. Prescriptions: No Action Advair HFA 230-21 mcg/actuation HFA aerosol inhaler 2 puff inhalation BID 30 Days Qty: 8 8RF sildenafil 50 mg tablet 50 mg PO DAILY PRN (Reason: sexual activity) 30 Days Qty: 30 5RF Rx Instructions: administer 30 minutes to 4 hours before activity zolpidem 10 mg tablet 10 mg PO BEDTIME 30 Days Qty: 30 3RF pregabalin 100 mg capsule 100 mg PO TID 30 Days Qty: 90 1RF nabumetone 500 mg tablet 500 mg PO BID PRN (Reason: pain) 90 Days Qty: 180 0RF Rx Instructions: do not take with ibuprofen sertraline 25 mg tablet 25 mg PO DAILY 30 Days Qty: 30 3RF amlodipine 5 mg tablet 5 mg PO DAILY Qty: 90 0RF Rx Instructions: 1 tablet Orally Once a day tiotropium bromide 1.25 mcg/actuation mist 2 puff PO DAILY 90 Days Qty: 4 3RF albuterol sulfate [ProAir HFA] 90 mcg/actuation HFA aerosol inhaler 2 puff PO Q4H PRN (Reason: bronchospasm) Qty: 17 5RF atorvastatin 20 mg tablet 20 mg PO BEDTIME 90 Days Qty: 90 0RF chlorthalidone 25 mg tablet 25 mg PO QAM Qty: 90 0RF omeprazole 40 mg capsule,delayed release(DR/EC) 40 mg PO DAILY Qty: 90 0RF potassium chloride 20 mEq tablet extended release 20 meq PO DAILY Qty: 30 0RF terazosin 5 mg capsule 10 mg PO BEDTIME 90 Days Qty: 180 1RF ondansetron 4 mg tablet,disintegrating 4 mg PO Q8H PRN (Reason: nausea and vomiting) 7 Days Qty: 21 0RF (DME) BD Regular Bevel [place] 18 gauge x 1 1/2 needle See Rx Instructions .ROUTE .MEDSUPPLY Qty: 30 0RF Rx Instructions: As directed for weekly testosterone injection omega-3 acid ethyl esters 1 gram capsule 1 cap PO BID 90 Days Qty: 180 0RF irbesartan 75 mg tablet 75 mg PO DAILY 30 Days Qty: 30 2RF ibuprofen 600 mg tablet 600 mg PO Q6-8H PRN (Reason: pain) lidocaine 5 % adhesive patch,medicated 1 patch topical DAILY Qty: 30 0RF Rx Instructions: leave on most painful area for up to 12 hrs oxycodone 10 mg tablet 10 mg PO TID PRN (Reason: pain) 30 Days Qty: 90 0RF Rx Instructions: Do not take oxycodone within 2 hours of HS naloxone 4 mg/actuation spray,non-aerosol 4 mg intranasal Q2M PRN (Reason: opioid overdose) Qty: 2 0RF Rx Instructions: spray 1 dose into ONE nostril; alternate nostrils w each dose until help arrives (DME) BD Regular Bevel [place] 22 gauge x 1 1/2 needle See Rx Instructions .MEDSUPPLY Qty: 30 0RF Rx Instructions: For testosterone injection weekly (DME) BD Luer-Doug Syringe 1 mL syringe See Rx Instructions .MEDSUPPLY Qty: 30 0RF Rx Instructions: Testosterone injection weekly testosterone cypionate [Depo-Testosterone] 200 mg/mL oil 80 mg subcut QWEEK 28 Days Qty: 2 5RF [facility] [Provider Group] - 1 day Jose Owen, DIRECTOR [facility] [Primary Care Provider] - 1 day Stand Alone Forms: Against Medical Advice Interventions: ED Discharge Assessment Last Done: 06/27/22 01:30 Discharge Date/Time: 06/27/22 01:31
[2022-06-26] MEDS: Potassium Chloride Packet 20 MEQ PACKET PO (21:12)
[2022-06-26] MEDS: chlordiazePOXIDE HCl 25 MG CAPSULE PO (21:21)
[2022-06-26] MEDS: Nicotine 14 MG PATCH.TD24 TRANSDERMA (21:29)
--- NOTE | 2022-06-26 22:07 | PC.NURSE ---
pt requesting alcohol detox, per pt he drinks about 500ml hard liquor a day, pt has never formally detoxed in a program before, but says he feels tremulous when he does not drink
[2022-06-26 22:41] VITALS: BP 128/78; PULSE 102; RESP 18; TEMP 36.9; O2SAT 95
[2022-06-26 22:59] LABS: Lipase 61 U/L (8-78)
[2022-06-26] MEDS: LORazepam 1 MG TABLET PO (23:25)
--- NOTE | 2022-06-26 23:39 | PC.NURSE ---
DANIEL online referral completed by this RN.
== END 2022-06-27 01:31 | disposition left against medical advice (07) ==
PROVIDERS: Internal Medicine; Physician Assistant; Emergency Provider Emergency Medicine; PCP Nurse Practitioner Family
DX: F10.129 Alcohol abuse with intoxication, unspecified (principal); R10.30 Lower abdominal pain, unspecified; Y90.7 Blood alcohol level of 200-239 mg/100 ml; F33.1 Major depressive disorder, recurrent, moderate; F41.1 Generalized anxiety disorder; F43.0 Acute stress reaction; Z79.899 Other long term (current) drug therapy
CPT/HCPCS: 36415; 80053; 80307; 81003; 82077; 83690; 85025; 99284

== ENCOUNTER → 2022-07-02 09:09 | Outpatient (BNVA) | payer OTHER, SELFPAY | PROVIDERS: PCP Nurse Practitioner Family; Visit Provider Anesthesiology | DX: M17.10 Unilateral primary osteoarthritis, unspecified knee (principal); M54.2 Cervicalgia; M25.511 Pain in right shoulder; M19.011 Primary osteoarthritis, right shoulder; M25.561 Pain in right knee | CPT/HCPCS: 99212 ==

== ENCOUNTER 2022-08-01 12:00 | Outpatient (REF) | payer OTHER, SELFPAY ==
[2022-08-01 14:21] LABS: MANUAL DIFF FLAG NO
[2022-08-01 14:28] LABS: Basophils Absolute Auto 0.1 X10*3/uL (0.0-0.2); Eosinophils Absolute Auto 0.2 X10*3/uL (0.0-0.4); Eosinophils Percent Auto 2.5 % (0-4); Hematocrit 44.1 % (42.0-52.0); Hemoglobin 15.4 g/dl (14.0-18.0); Imm Gran Abs Auto 0.03 X10*3/uL (0.00-0.03); Imm Gran Pct Auto 0.5 % (0.0-0.4); Lymphocytes Percent Auto 16.2 % (20-40); Mean Corpuscular HGB Conc 34.9 g/dl (31.0-36.0); Mean Corpuscular Hemoglobin 31.8 pg (27.0-33.0); Mean Corpuscular Volume 90.9 fL (80.0-98.0); Monocytes Absolute Auto 0.8 X10*3/uL (0.1-1.2); Monocytes Percent Auto 13.4 % (2-11); Neutrophils Percent Auto 66.4 % (45-73); Platelet Count 191 X10*3/uL (160-400); Red Blood Count 4.85 X10*6/uL (4.60-5.80); Red Cell Distribution Width 14.7 % (11.0-16.0); White Blood Count 6.1 X10*3/uL (4.8-10.8)
[2022-08-01 14:44] LABS: Appearance Urine Clear; Color Urine Dark Yellow; Glucose Urine UA Negative (Negative); Leukocyte Esterase Urine Trace (Negative); Nitrite Urine Negative (Negative); PH 7.5 (5.0-9.0); UMIC TRIGGER UACC YES; Urine Blood Negative (Negative); Urine Ketones Trace mg/dL (Negative); Urine Protein Trace mg/dL (Neg-Trace)
[2022-08-01 14:49] LABS: Bacteria Urine None Seen (None Seen); Hyaline Casts Urine 0-2 /LPF (0-2); RBC Urine 0-2 /HPF (0-2); Squamous Epithelial Cell Urine 0-2 /HPF (0-2); WBC Urine 0-5 /HPF (0-5)
[2022-08-01 14:56] LABS: Alanine Aminotransferase 148 U/L (0-40); Albumin Level 3.9 g/dL (3.5-5.0); Alkaline Phosphatase 62 U/L (39-117); Anion Gap 16 (12-20); Aspartate Amino Transferase 198 U/L (5-37); Bilirubin Direct 0.4 mg/dL (0.0-0.5); Blood Urea Nitrogen 10 mg/dL (9-16); Calcium 9.2 mg/dL (8.4-10.2); Carbon Dioxide 30 mmol/L (22-29); Chloride 100 mmol/L (96-108); Cholesterol 147 mg/dL; Estimated Glomerular Filt Rate > 60; Glucose Fasting 100 mg/dL (60-99); HDL Cholesterol 57 mg/dL; LDL Cholesterol Calculated 42 mg/dl; Lipase 79 U/L (8-78); Potassium 3.8 mmol/L (3.3-5.1); Sodium 142 mmol/L (135-145); Total Protein 6.7 g/dL (6.5-8.0); Triglycerides 240 mg/dL
== END 2022-08-01 12:01 | disposition home or self-care (01) ==
LOC: HO.WFDLDS 12:00
PROVIDERS: Internal Medicine Gastroenterology; Visit Provider Nurse Practitioner Family
DX: R10.9 Unspecified abdominal pain (principal); R74.8 Abnormal levels of other serum enzymes; F43.10 Post-traumatic stress disorder, unspecified; K21.9 Gastro-esophageal reflux disease without esophagitis; R63.4 Abnormal weight loss; Z86.010 Personal history of colon polyps
CPT/HCPCS: 36415; 80053; 80061; 80076; 81001; 82248; 83690; 84443; 85025; 99212

== ENCOUNTER → 2022-09-17 15:15 | Outpatient (BNVA) | payer OTHER, SELFPAY | PROVIDERS: PCP Nurse Practitioner Family; Visit Provider Anesthesiology | DX: M19.011 Primary osteoarthritis, right shoulder (principal); M25.511 Pain in right shoulder; M54.2 Cervicalgia; M25.561 Pain in right knee; M17.10 Unilateral primary osteoarthritis, unspecified knee | CPT/HCPCS: 99212 ==

== ENCOUNTER 2022-10-01 16:20 | Outpatient (REF) | payer OTHER, SELFPAY ==
--- NOTE | ~2022-10-01 | XR_ITS ---
EXAMINATION: XR HAND, RIGHT CLINICAL INFORMATION: M79.641 - Pain in right hand COMPARISON: Radiographs right hand 09/26/2021 TECHNIQUE: PA, lateral, and oblique views of the right hand. FINDINGS: There is no acute or healing fracture, dislocation, or arthropathy. Ulnar variance is neutral. There is a punctate corticated ossicle is again noted just distal to the ulnar styloid. Small cystic focus distal navicular pole again seen. No interval risk joint narrowing. No chondrocalcinosis. The MCP and interphalangeal joints show no focal narrowing or erosive changes. XR/XR hand RT min 3V IMPRESSION: No acute or healing fracture, dislocation, or arthropathy.
== END 2022-10-01 16:21 | disposition home or self-care (01) ==
LOC: HO.HOSX 16:20
PROVIDERS: Visit Provider Orthopaedic Surgery
DX: M79.641 Pain in right hand (principal)
CPT/HCPCS: 73130

== ENCOUNTER → 2022-10-02 09:00 | Outpatient (BNVA) | payer OTHER, SELFPAY | PROVIDERS: PCP Nurse Practitioner Family; Visit Provider Orthopaedic Surgery | DX: M79.641 Pain in right hand (principal); R20.0 Anesthesia of skin; R20.2 Paresthesia of skin | CPT/HCPCS: 99212 ==

== ENCOUNTER 2022-10-12 13:17 | Outpatient (REF) | payer OTHER, SELFPAY ==
[2022-10-12 14:18] LABS: Hematocrit 38.5 % (42.0-52.0); Hemoglobin 13.4 g/dl (14.0-18.0); Mean Corpuscular HGB Conc 34.8 g/dl (31.0-36.0); Mean Corpuscular Hemoglobin 32.5 pg (27.0-33.0); Mean Corpuscular Volume 93.4 fL (80.0-98.0); Mean Platelet Volume 9.7 fL (9.4-12.4); Platelet Count 195 X10*3/uL (160-400); Red Blood Count 4.12 X10*6/uL (4.60-5.80); Red Cell Distribution Width 13.4 % (11.0-16.0); White Blood Count 5.2 X10*3/uL (4.8-10.8)
[2022-10-12 15:14] LABS: PSA,Total (Free>4and<10) 1.34 ng/mL (0.00-4.00)
[2022-10-18 21:19] LABS: Testosterone, Free 103.2 pg/mL (35.0-155.0); Testosterone, Total 670 ng/dL (250-1100)
== END 2022-10-12 13:18 | disposition home or self-care (01) ==
LOC: HO.HMGCLDS 13:17
PROVIDERS: PCP Nurse Practitioner Family; Visit Provider Urology
DX: E29.1 Testicular hypofunction (principal); Z12.5 Encounter for screening for malignant neoplasm of prostate
CPT/HCPCS: 36415; 84153; 84402; 84403; 85027

== ENCOUNTER 2022-10-16 22:11 | Emergency (ER) | payer OTHER, SELFPAY ==
[2022-10-16 22:16] VITALS: BP 117/77; PULSE 120; RESP 19; TEMP 36.6; O2SAT 96; BMI 26.4
[2022-10-16 22:47] LABS: Hematocrit 39.9 % (42.0-52.0); Hemoglobin 14.8 g/dl (14.0-18.0); Mean Corpuscular HGB Conc 37.1 g/dl (31.0-36.0); Mean Corpuscular Hemoglobin 32.9 pg (27.0-33.0); Mean Corpuscular Volume 88.7 fL (80.0-98.0); Mean Platelet Volume 9.5 fL (9.4-12.4); Platelet Count 168 X10*3/uL (160-400); Red Cell Distribution Width 13.2 % (11.0-16.0); White Blood Count 5.7 X10*3/uL (4.8-10.8)
[2022-10-16 22:54] LABS: COVID-19 Test Negative (Negative)
[2022-10-16 22:56] LABS: Appearance Urine Clear; Color Urine Yellow; Glucose Urine UA Negative (Negative); Leukocyte Esterase Urine Negative (Negative); Nitrite Urine Negative (Negative); PH 6.5 (5.0-9.0); Specific Gravity - Urine 1.015 (1.005-1.025); Urine Blood Negative (Negative); Urine Ketones Trace mg/dL (Negative); Urine Protein Negative (Neg-Trace)
[2022-10-16 23:00] LABS: Amphetamine Screen Urine Not Detected (Not Detect); Barbiturates, Urine Not Detected (Not Detect); Benzodiazepines Screen Urine Not Detected (Not Detect); Cannabinoid Screen Urine Not Detected (Not Detect); Cocaine Screen Urine Not Detected (Not Detect); Fentanyl, urine Not Detected (Not Detect); Opiate Screen Urine Not Detected (Not Detect); Phencyclidine Screen Urine Not Detected (Not Detect)
[2022-10-16 23:01] LABS: Ethanol 307 mg/dL
[2022-10-16 23:03] LABS: Alanine Aminotransferase 108 U/L (0-40); Alkaline Phosphatase 70 U/L (39-117); Anion Gap 16 (12-20); Aspartate Amino Transferase 149 U/L (5-37); Bilirubin Total 1.3 mg/dL (0.0-1.0); Blood Urea Nitrogen 13 mg/dL (9-16); Calcium 9.2 mg/dL (8.4-10.2); Carbon Dioxide 25 mmol/L (22-29); Chloride 100 mmol/L (96-108); Creatinine Clr Calc Pharmacy 103.7; Estimated Glomerular Filt Rate > 60; Glucose Random 107 mg/dL (60-115); Potassium 3.1 mmol/L (3.3-5.1); Sodium 138 mmol/L (135-145); Total Protein 6.6 g/dL (6.5-8.0)
--- NOTE | 2022-10-16 23:13 | ED.PSYCH ---
HPI - Psych General Chief Complaint: Psychiatric Symptoms Stated Complaint: seeking detox Time Seen by Provider: 10/16/22 22:23 Source: patient Mode of arrival: EMS Limitations: no limitations History of Present Illness HPI Narrative: Patient with chronic right shoulder pain opiate dependent for 2 years. Which was stopped a month ago since then patient has been drinking heavy amount of alcohol to relieve the pain and feeling increased depression patient denies any suicidal ideation at this time but per EMS patient was making suicidal comments to the PD. Patient asking for detox Related Data Home Medications Medication Instructions Recorded Confirmed ibuprofen 600 mg tablet 600 mg PO Q6-8H PRN pain 05/10/21 09/17/22 syringe with needle 3 mL 22 x 1 #100 ea 07/02/22 09/17/2211/12 (BD Luer-Doug Syringe) albuterol sulfate 90 mcg/actuation 2 puff inhalation Q4H PRN muscle 10/16/22 10/16/22 aerosol inhaler (ProAir HFA) spasm irbesartan 75 mg tablet 1 tab PO DAILY 10/16/22 10/16/22 paroxetine HCl 10 mg tablet 1 tab PO DAILY 10/16/22 10/16/22 potassium chloride 20 mEq 1 tab PO DAILY 10/16/22 10/16/22 tablet,extended release tiotropium bromide 1.25 2 puff inhalation DAILY 10/16/22 10/16/22 mcg/actuation mist for inhalation (Spiriva Respimat) Previous Rx's Medication Instructions Recorded lidocaine 5 % topical patch 1 patch topical DAILY #30 ea 05/10/21 fluticasone propionate 230 2 puff inhalation BID 30 days #8 09/02/21 mcg-salmeterol 21 mcg/actuation grams HFA inhaler (Advair HFA) sildenafil 50 mg tablet 50 mg PO DAILY PRN sexual activity 10/13/21 30 days #30 tabs pregabalin 100 mg capsule 100 mg PO TID 30 days #90 caps 10/25/21 naloxone 4 mg/actuation nasal spray 4 mg intranasal Q2M PRN opioid 11/22/21 overdose #2 ea nabumetone 500 mg tablet 500 mg PO BID PRN pain 90 days 01/09/22 #180 tabs ProAir HFA 90 mcg/actuation 2 puff PO Q4H PRN bronchospasm #17 04/15/22 aerosol inhaler (albuterol sulfate) grams terazosin 5 mg capsule 10 mg PO BEDTIME 90 days #180 caps 06/07/22 ondansetron 4 mg disintegrating 4 mg PO Q8H PRN nausea and 06/11/22 tablet vomiting 7 days #21 tabs needle (disp) 18 G 18 gauge x 1 #30 ea 06/13/22 1/2 (BD Regular Bevel Horatio) needle (disp) 22 G 22 gauge x 1 #30 ea 06/13/22 1/2 (BD Regular Bevel Horatio) syringe (disposable) 1 mL (BD #30 ea 06/13/22 Luer-Doug Syringe) testosterone cypionate 200 mg/mL 80 mg (0.4 mL) subcut QWEEK 4 06/13/22 intramuscular oil weeks #2 mL (Depo-Testosterone) omega-3 acid ethyl esters 1 gram 1 cap PO BID 90 days #180 caps 06/18/22 capsule potassium chloride 20 mEq 20 meq PO DAILY #30 tabs 07/28/22 tablet,extended release bisacodyl 5 mg tablet,delayed 10 mg PO ONCE colonoscopy prep 1 08/01/22 release (Dulcolax (bisacodyl)) day #2 tabs polyethylene glycol 3350 17 238 g PO ONCE 1 day #238 grams 08/01/22 gram/dose oral powder (Miralax) zolpidem 10 mg tablet 10 mg PO BEDTIME 30 days #30 tabs 08/01/22 Ice It! Pack (ice bag) #1 ea 08/02/22 chlorthalidone 25 mg tablet 25 mg PO QAM #90 tabs 08/06/22 omeprazole 40 mg capsule,delayed 40 mg PO DAILY #90 caps 08/06/22 release tiotropium bromide 1.25 2 puff PO DAILY 90 days #4 grams 08/21/22 mcg/actuation mist for inhalation amlodipine 5 mg tablet 5 mg PO DAILY #30 tabs 09/06/22 irbesartan 75 mg tablet 75 mg PO DAILY 30 days #30 tabs 09/19/22 atorvastatin 20 mg tablet 20 mg PO BEDTIME 90 days #90 tabs 10/13/22 paroxetine HCl 10 mg tablet 10 mg PO DAILY 30 days #30 tabs 10/13/22 Allergies Allergy/AdvReac Type Severity Reaction Status Date / Time No Known Allergies Allergy Verified 10/02/22 09:16 [No Known Allergies*] Review of Systems Review of Systems: Yes all other systems are reviewed and are negative [facility] Past Medical History Medical History Anxiety Cervicalgia Clubbing of nails Depression Hypogonadism in male Hypothyroidism Knee osteoarthritis Lumbar degenerative disc disease 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 Physical Exam Vital Signs: Vital Signs: Last Vital Signs Temp 97.9 F 10/16/22 22:16 Pulse 120 H 10/16/22 22:16 Resp 19 10/16/22 22:16 BP 117/77 10/16/22 22:16 Pulse Ox 96 10/16/22 22:16 O2 Del Method 10/16/22 22:16 BMI result Body Mass Index 26.4 Appearance: Alert. Oriented X3. No acute distress. ETOH++ Eyes: PERRLA, No Nystagmus ENT: Pharynx normal. Oral Mucosa moist Neck: Normal inspection. Neck supple. CVS: Normal heart rate and rhythm. Pulses normal. Respiratory: No respiratory distress. Equal air entry bilateral, no wheezing/rales/rhonchi Abdomen: Soft and nontender. Bowel sounds are present, no mass palpable, no CVA tenderness Skin: Skin warm and dry. Normal skin color. Normal skin turgor. Extremities: No lower extremity edema. No calf tenderness diffuse tenderness right shoulder area no deformity Neuro: Oriented X 3. No motor deficit. No sensory deficit.No cerebellar signs , cranial nerves II-XII intact Medications Administered Discontinued Medications Generic Name Dose Route Start Last Admin Trade Name Freq PRN Reason Stop Dose Admin Gabapentin 600 mg 10/16/22 23:31 10/16/22 23:52 Gabapentin 600 Mg Tablet PO 10/16/22 23:32 600 mg ONCE ONE Administration Ketorolac Tromethamine 60 mg 10/16/22 23:31 10/17/22 00:03 Ketorolac Tromethamine 60 Mg/2 Ml Vial IM 10/16/22 23:32 60 mg ONCE ONE Administration Lorazepam 2 mg 10/16/22 23:31 10/16/22 23:53 Lorazepam 1 Mg Tablet PO 10/16/22 23:32 2 mg ONCE ONE Administration Potassium Bicarbonate 25 meq 10/16/22 23:58 10/17/22 00:22 Potassium Bicarbonate/Cit Ac 25 Meq Tablet.Eff PO 10/16/22 23:59 25 meq ONCE ONE Administration Medical Decision Making Medical Decision Making MDM Narrative: Patient with alcohol abuse with depression chronic pain right shoulder will get population health coach consult for detox Lab Attestation: I reviewed the patient's lab results. Discharge Plan Discharge Clinical Impression: Alcohol abuse with intoxication, Major depression Patient Disposition: Still a Patient Prescriptions: No Action Advair HFA 230-21 mcg/actuation HFA aerosol inhaler 2 puff inhalation BID 30 Days Qty: 8 8RF sildenafil 50 mg tablet 50 mg PO DAILY PRN (Reason: sexual activity) 30 Days Qty: 30 5RF Rx Instructions: administer 30 minutes to 4 hours before activity pregabalin 100 mg capsule 100 mg PO TID 30 Days Qty: 90 1RF nabumetone 500 mg tablet 500 mg PO BID PRN (Reason: pain) 90 Days Qty: 180 0RF Rx Instructions: do not take with ibuprofen albuterol sulfate [ProAir HFA] 90 mcg/actuation HFA aerosol inhaler 2 puff PO Q4H PRN (Reason: bronchospasm) Qty: 17 5RF terazosin 5 mg capsule 10 mg PO BEDTIME 90 Days Qty: 180 1RF ondansetron 4 mg tablet,disintegrating 4 mg PO Q8H PRN (Reason: nausea and vomiting) 7 Days Qty: 21 0RF (DME) BD Regular Bevel Horatio 18 gauge x 1 1/2 needle See Rx Instructions .ROUTE .MEDSUPPLY Qty: 30 0RF Rx Instructions: As directed for weekly testosterone injection omega-3 acid ethyl esters 1 gram capsule 1 cap PO BID 90 Days Qty: 180 0RF potassium chloride 20 mEq tablet extended release 20 meq PO DAILY Qty: 30 2RF zolpidem 10 mg tablet 10 mg PO BEDTIME 30 Days Qty: 30 3RF Rx Instructions: brand name only please (miller) (DME) Ice It! Pack Misc See Rx Instructions .Route Qty: 1 0RF Rx Instructions: use daily chlorthalidone 25 mg tablet 25 mg PO QAM Qty: 90 0RF omeprazole 40 mg capsule,delayed release(DR/EC) 40 mg PO DAILY Qty: 90 0RF tiotropium bromide 1.25 mcg/actuation mist 2 puff PO DAILY 90 Days Qty: 4 3RF amlodipine 5 mg tablet 5 mg PO DAILY Qty: 30 0RF Rx Instructions: 1 tablet Orally Once a day irbesartan 75 mg tablet 75 mg PO DAILY 30 Days Qty: 30 2RF paroxetine HCl 10 mg tablet 10 mg PO DAILY 30 Days Qty: 30 6RF atorvastatin 20 mg tablet 20 mg PO BEDTIME 90 Days Qty: 90 0RF paroxetine HCl 10 mg tablet 1 tab PO DAILY irbesartan 75 mg tablet 1 tab PO DAILY albuterol sulfate [ProAir HFA] 90 mcg/actuation HFA aerosol inhaler 2 puff INHALATION Q4H PRN (Reason: muscle spasm) potassium chloride 20 mEq tablet extended release 1 tab PO DAILY Spiriva Respimat 1.25 mcg/actuation mist 2 puff INHALATION DAILY ibuprofen 600 mg tablet 600 mg PO Q6-8H PRN (Reason: pain) lidocaine 5 % adhesive patch,medicated 1 patch topical DAILY Qty: 30 0RF Rx Instructions: leave on most painful area for up to 12 hrs (DME) syringe with needle [BD Luer-Doug Syringe] 3 mL 22 x 1 1/2 syringe See Rx Instructions .ROUTE .MEDSUPPLY Qty: 100 Rx Instructions: As directed naloxone 4 mg/actuation spray,non-aerosol 4 mg intranasal Q2M PRN (Reason: opioid overdose) Qty: 2 0RF Rx Instructions: spray 1 dose into ONE nostril; alternate nostrils w each dose until help arrives (DME) BD Regular Bevel Horatio 22 gauge x 1 1/2 needle See Rx Instructions .MEDSUPPLY Qty: 30 0RF Rx Instructions: For testosterone injection weekly (DME) BD Luer-Doug Syringe 1 mL syringe See Rx Instructions .MEDSUPPLY Qty: 30 0RF Rx Instructions: Testosterone injection weekly testosterone cypionate [Depo-Testosterone] 200 mg/mL oil 80 mg subcut QWEEK 28 Days Qty: 2 5RF bisacodyl [Dulcolax (bisacodyl)] 5 mg tablet,delayed release (DR/EC) 10 mg PO ONCE 1 Days Qty: 2 0RF Rx Instructions: Take 2 tablets by mouth at 12:00pm the day before your procedure. polyethylene glycol 3350 [Miralax] 17 gram/dose powder 238 g PO ONCE 1 Days Qty: 238 0RF Rx Instructions: Take as directed by mouth the day before your procedure.
[2022-10-16] MEDS: Gabapentin 600 MG TABLET PO (23:52)
[2022-10-16] MEDS: LORazepam 1 MG TABLET 2 MG PO (23:53)
[2022-10-17] MEDS: Ketorolac Tromethamine 60 MG/2 ML VIAL IM (00:03)
[2022-10-17] MEDS: Potassium Bicarbonate/Cit AC 25 MEQ TABLET.EFF PO (00:22)
--- NOTE | 2022-10-17 00:43 | PC.NURSE ---
Patient spoke with provider, ordered Ativan 2 mg PO, Toradol 60 mg IM, and gabapentin 600 mg. administered at 2353, patient's potassium level was 3.1, Klor-Con 25 Meq administered at 0221, patient will be assessed by care team in the morning, behavior unpredictable/demanding, will continue to monitor.
[2022-10-17 06:02] VITALS: PULSE 108
[2022-10-17 06:05] VITALS: BP 117/83; PULSE 108; RESP 17; TEMP 37.3; O2SAT 93
[2022-10-17] MEDS: oxyCODONE HCl Immed Release 5 MG TABLET PO (06:37)
[2022-10-17] MEDS: Albuterol Sulfate 90 MCG 8 GM INHALER 2 PUFF INHALE ×2 (07:20→21:03)
[2022-10-17 07:32] VITALS: BP 112/53; PULSE 113; RESP 13; TEMP 37.6; O2SAT 95
[2022-10-17] MEDS: Nicotine 21 MG PATCH.TD24 TRANSDERMA (07:43)
--- NOTE | 2022-10-17 08:11 | PC.NURSE ---
pt continually asking about hs meds, emar remains with most medications unverified at this time, pharmacy called to verify rest of meds. pt explained of this protocol for medication reconcilliation.
[2022-10-17] MEDS: LORazepam 1 MG TABLET 2 MG PO ×2 (08:50→21:42)
--- NOTE | 2022-10-17 08:53 | PHA.MEDREC ---
Pharmacy Consult ? Medication Reconciliation Pharmacy has REVIEWED the medication reconciliation done by Balbir.
--- NOTE | 2022-10-17 09:34 | PC.NURSE ---
pt met with both care team and assistant strength coach at bedside this am. ambulatory around millieu tolerating po without issues.
[2022-10-17] MEDS: amLODIPine Besylate 5 MG TABLET PO (10:01)
[2022-10-17] MEDS: Potassium Chloride ER 20 MEQ TAB.ER.PRT PO (10:01)
[2022-10-17] MEDS: Valsartan 40 MG TABLET PO (10:08)
[2022-10-17] MEDS: PARoxetine HCL 10 MG TABLET PO (10:08)
--- NOTE | 2022-10-17 10:33 | MHC.RECOVRN ---
Met with pt in [facility] to discuss substance use. Pt reports having been utilizing the pain management program at [facility] [place] [place] x 2 years (shoulder pain), most recent script was oxycodone 10 mg TID. 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 Pt reports being discharged from the program for this infraction. Pt began drinking alcohol as a way to relieve the pain. Currently, pt is drinking 10 nips of 35 proof vodka as well as 4-5 nips 100 proof alcohol daily. Pt states I was just trying to keep a constant buzz to not feel the pain. Pt denies any opioid withdrawal symptoms after dc from pain management, states if there were any they were covered by the alcohol. Pts UDS negative for opiates/fentanyl. Pt is interested in ATS at this time. Referral has been sent to [facility], awaiting review. Discussed with CARE Team and RN.
[2022-10-17] MEDS: Omeprazole 40 MG CAPSULE.DR PO (10:38)
--- NOTE | 2022-10-17 10:55 | PC.NURSE ---
provider notified of pt withdrawal s/s, larry completed. med rec for phenobarb ordered.
[2022-10-17] MEDS: PHENobarbitaL sodium 130 MG/ML IM ONCE 320 MG IM (11:11)
--- NOTE | 2022-10-17 13:37 | PC.NURSE ---
pt resting in bed, appears to be sleeping, awakens to voice. reports being able to get some rest. took phone call from girlfriend.
[2022-10-17 13:47] VITALS: BP 137/89; PULSE 120; RESP 17; TEMP 37.2; O2SAT 97
--- NOTE | 2022-10-17 14:14 | MHC.RECOVRN ---
[facility] does not have bed availability. Pt currently on phone with [facility] completing intake, bed is available.
[2022-10-17] MEDS: PHENobarbitaL sodium 130 MG/ML VIAL IM Q3Hx2 240 MG IM ×2 (14:46→17:53)
--- NOTE | 2022-10-17 16:15 | MHC.RECOVRN ---
Addendum entered by Ella Morrison 10/17/22 16:22: [facility] [place] [address], [place] [phone] Original Note: Pt accepted to [facility] pending insurance reinstatement tomorrow, 10/18. Per pt, insurance will be in status mid morning, [facility] aware and will be able to accept pt after receving notification from [facility]. CARE and RN aware.
[2022-10-17] MEDS: Nicotine Polacrilex 2 MG GUM BUCCAL (17:59)
[2022-10-17] MEDS: Atorvastatin Calcium 20 MG TABLET PO (20:42)
[2022-10-17 20:52] VITALS: BP 145/94; PULSE 87; RESP 20; TEMP 36.9; O2SAT 98
[2022-10-17] MEDS: Ibuprofen 800 MG TABLET PO (21:46)
--- NOTE | 2022-10-17 22:01 | PC.NURSE ---
Patient on multiple occasion requested for medication for various complains, ibuprofen 800 mg PO at 2145, Ativan 2 mg PO at 1999, patient scored 4 on CIWA at 1999, patient appears to be exhibiting medication seeking behavior, VSS, will continue to monitor.
[2022-10-17] MEDS: Ketorolac Tromethamine 15 MG/ML VIAL 30 MG IM (22:15)
[2022-10-17] MEDS: diphenhydrAMINE HCL 25 MG CAPSULE PO (22:16)
--- NOTE | 2022-10-17 22:24 | PC.NURSE ---
Patient requested to speak with charge nurse over his medication, charge was called, patient spoke with charge nurse, provider in consultation with charge ordered Toradol 30 mg IM and Benadryl 25 mg , administered as ordered/pending effect, patient still not happy with order actually looking for something stronger to knock him down, will continue to monitor.
--- NOTE | 2022-10-17 22:39 | PC.NURSE ---
spoke with the pt about his medications he receives and takes at home, med rec up to date, pt 2nd concern is the pain to his right shoulder, and seeking medication to sleep pt states i just want be knocked out to sleep in reviewing pt medications he has been taking oxycodone and drinking to relieve his shoulder pain. pt is calm cooperative, alert and orientedx3. no s/s of distress. plan of care reviewed with Balbir yost. Pt updated and is ok with the plan of care. d
[2022-10-18 03:26] VITALS: BP 134/98; PULSE 96; RESP 17; TEMP 36.7; O2SAT 99
--- NOTE | 2022-10-18 06:20 | PC.NURSE ---
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
[2022-10-18 07:26] VITALS: BP 134/100; PULSE 100; RESP 20; TEMP 37.2; O2SAT 97
[2022-10-18] MEDS: PHENobarbitaL 30 MG TABLET 60 MG PO (08:12)
[2022-10-18] MEDS: amLODIPine Besylate 5 MG TABLET PO (08:12)
[2022-10-18] MEDS: Potassium Chloride ER 20 MEQ TAB.ER.PRT PO (08:12)
[2022-10-18] MEDS: LORazepam 1 MG TABLET 2 MG PO (08:16)
[2022-10-18] MEDS: Nicotine Polacrilex 2 MG GUM BUCCAL (08:16)
[2022-10-18] MEDS: Valsartan 40 MG TABLET PO (08:21)
[2022-10-18] MEDS: PARoxetine HCL 10 MG TABLET PO (08:22)
--- NOTE | 2022-10-18 09:54 | PC.NURSE ---
Per Dr. John: okay to hold flexeril until awake.
[2022-10-18] MEDS: Albuterol Sulfate 90 MCG 8 GM INHALER 2 PUFF INHALE (10:31)
--- NOTE | 2022-10-18 10:35 | MHC.RECOVRN ---
Spoke with [facility], pts insurance still not active. Being resent for verification. RN aware.
[2022-10-18] MEDS: Cyclobenzaprine HCl 10 MG TABLET PO (10:42)
[2022-10-18 14:00] VITALS: PULSE 72; RESP 16
--- NOTE | 2022-10-18 14:58 | MHC.RECOVRN ---
Pt reports insurance will be active at 3PM. Pt completing intake with [facility] in the event insurance does not become active.
--- NOTE | 2022-10-18 16:49 | PC.NURSE ---
PT requesting to d/c at this time.Care team aware
== END 2022-10-18 17:47 | disposition left against medical advice (07) ==
PROVIDERS: Internal Medicine; Emergency Provider Emergency Medicine Emergency Medical Services
DX: F33.1 Major depressive disorder, recurrent, moderate (principal); F10.129 Alcohol abuse with intoxication, unspecified; Y90.8 Blood alcohol level of 240 mg/100 ml or more; Z79.899 Other long term (current) drug therapy; Z87.891 Personal history of nicotine dependence; Z71.41 Alcohol abuse counseling and surveillance of alcoholic; Z20.822 Contact with and (suspected) exposure to COVID-19
CPT/HCPCS: 36415; 80053; 80184; 80307; 81003; 82077; 85027; 87635; 96372; 99285; J1885; J2560

== ENCOUNTER 2022-10-30 06:16 | Outpatient (REF) | payer OTHER, SELFPAY ==
--- NOTE | ~2022-10-30 | FL_ITS ---
EXAMINATION: XR FLUOROSCOPY WITH IMAGES CLINICAL INFORMATION: Pain right shoulder COMPARISON: None. TECHNIQUE: Fluoroscopy Supervised By: Sunita Langston. Fluoroscopy Time: 0.3 minutes. DAP: 806 Gycm2. Images: 1. FINDINGS: Single digital image of the shoulder reveals loss of glenohumeral joint space with periarticular spurring. There is contrast visualized superior to the coracoid process FL/FL guidance in treatment room IMPRESSION: Fluoroscopy was provided to referring physician for pain management.
== END 2022-10-30 06:17 | disposition home or self-care (01) ==
LOC: CF 06:16
PROVIDERS: Visit Provider Anesthesiology
DX: M19.011 Primary osteoarthritis, right shoulder (principal); M54.2 Cervicalgia; M25.561 Pain in right knee
CPT/HCPCS: 64418

== ENCOUNTER → 2022-10-31 16:54 | Outpatient (BNVA) | payer OTHER, SELFPAY | PROVIDERS: PCP Nurse Practitioner Family; Visit Provider Anesthesiology | DX: Z13.89 Encounter for screening for other disorder (principal) ==

== ENCOUNTER 2023-01-17 12:38 | Day surgery (SDC) | payer OTHER, SELFPAY ==
--- NOTE | ~2023-01-17 | FL_ITS ---
EXAMINATION: XR FLUOROSCOPY WITH IMAGES CLINICAL INFORMATION: Suprascapular nerve SPRINT stimulator, right COMPARISON: Fluoroscopic spot view right shoulder 10/30/2022 TECHNIQUE: Fluoroscopy Supervised By: Dr. Fabian Worrell. Fluoroscopy Time: 0.1 minutes. Cumulative Dose: 0.197 mGy. DAP: 1. Gycm2. Images: 1. FINDINGS: There is a wire overlying the posterior right shoulder, tip resides just above the scapular spine and chest medial to the coracoid process. There are prominent arthritic changes again seen glenohumeral joint with joint narrowing and subchondral sclerosis. FL/FL guidance in OR IMPRESSION: Fluoroscopy for pain management procedure.
[2023-01-17 12:58] VITALS: BP 144/91; PULSE 66; RESP 16; TEMP 36.6; O2SAT 95; BMI 26.4
--- NOTE | 2023-01-17 13:52 | MHC.SHP ---
Pre-Procedural Eval Section A Date of Service: 01/17/23 The patient is an INPATIENT: No Changes since office visit: Yes Patient answered all questions Section B Chief Complaint: Primary osteoarthritis, right shoulder pain Details of Present Illness: as above Relevant Family History (Specify if Yes): No Relevant Social History: None Present Medications: see Short Stay Collaborative assessment Medical History: No relevant PMH History of Previous Operations: No relevant previous surgery Allergies: Allergies Allergy/AdvReac Type Severity Reaction Status Date / Time No Known Allergies Allergy Verified 01/17/23 12:51 [No Known Allergies*] Review of Systems Sugical H&P ROS: Negative: Constitution, Cardiovascular, Respiratory, Neurological, Psychiatric, Hem-Onc, Allergic/Immunologic, Gastrointestinal, Genitourinary, Musculoskeletal, Integumentary, Endocrine and Eyes/Ears/Nose/Throat Exam Surgical H&P Exam: Normal: HEENT, Normal: Heart, Normal: Lungs, Normal: Extremities, Normal: Abdomen, Normal: Skin and Normal: Neurological Plan Diagnosis/Plan: Unchanged I have reviewed the history and physical and performed a pertinent physical examination on my patient. No changes have occurred unless specified. Time Spent With Patient Time: Total time managing care of this patient today ____ minutes.
--- NOTE | 2023-01-17 14:37 | PM.OP ---
Brief Operative Note Date of Service: 01/17/23 Pre-op diagnosis: right shoulder pain, right shoulder osteoarthritis. Post-op diagnosis: same Procedure: SPRINT PNS right supracsapular nerve. Surgeon: Fabian Worrell MD Anesthesia: local Was an Security Flex Utility Officer used for this Procedure?: No Estimated blood loss (mL): 0 Condition: stable Disposition: PACU
[2023-01-17 14:38] VITALS: BP 148/84; PULSE 66; RESP 16; TEMP 36.2; O2SAT 97
--- NOTE | 2023-01-17 14:38 | P.OP_ITS ---
Operative Note Operative Note Date of Service: 01/17/23 Narrative: Percutaneous implantation of peripheral nerve stimulation Sprint system right suprascapular nerve position. After the risks, benefits and alternatives were discussed with the patient and informed consent was obtained, patient was placed in the prone position and padded to foster comfort. Time out was performed delineating correct site and side of the procedure , name and of the patient, patient participated in heaven e out procedure. Sterily draped C-arm was brought over the operating field and clear picture of the upper scapula on the right was delineated on the screen. The suprascaular notch was chosen as a target of the needle tip insertion . After identifying and marking the intended target, the skin around the planned entry point and the subcutaneous tissues were injected with local anesthetic forming skin wheal.. A percutaneous sleeve and stimulating probe lead introduction system were assembled, inserted and advanced through the skin wheal to the point of interest under C-arm view in tunnel vision fashion, the introducer needle was delivered to a location in proximity to the nerve. Multiple stimulation parameters were used to deliver stimulation to the nerve in concert with stimulating at multiple positions around the nerve. nerve target acquisition was confirmed noting generation of in the corresponding to the nerve being stimulated. Various electrical parameter combinations were tested, and the lead location was adjusted (physically relocated) until the patient indicated overlapping the distribution of the patient?s typical region of pain. The stimulating probe was removed from the introducer and a percutaneous lead was guided through the needle and delivered to a location in similar proximity to the nerve. Final location was verified with electrical stimulation. The int roducer needle was removed, and the exposed end of the percutaneous lead was attached to an external stimulator unit. At the end of the case various electrical parameter combinations were again tested until the patient indicated paresthesia or muscle tension overlapping the distribution of the patient?s typical region of pain. After confirming that lead impedance was in the normal range, the external unit was detached, the needle was removed, and the lead was anchored at the skin. The lead was threaded into the connector block and electrical continuity and desired patient response was confirmed. The connector block was attached to the external stimulator unit. The site was covered with a sterile occlusive dressing and a image was taken to document final placement. Upon completion of the procedure the patient was taken outside the OR where she recovered uneventfully he went home without immediate complications.
[2023-01-17 14:50] VITALS: BP 144/97; PULSE 67; RESP 14; TEMP 36.7; O2SAT 98
== END 2023-01-17 14:59 | disposition home or self-care (01) ==
PROVIDERS: PCP Nurse Practitioner Family; Visit Provider Anesthesiology
PROC: (CPT 64555; principal; 2023-01-17 13:30)
DX: M25.511 Pain in right shoulder (principal); M19.011 Primary osteoarthritis, right shoulder; M54.41 Lumbago with sciatica, right side; M51.36 Other intervertebral disc degeneration, lumbar region; M25.561 Pain in right knee; M17.10 Unilateral primary osteoarthritis, unspecified knee; M54.2 Cervicalgia; R68.3 Clubbing of fingers; F41.1 Generalized anxiety disorder; E03.9 Hypothyroidism, unspecified; J45.40 Moderate persistent asthma, uncomplicated; F17.220 Nicotine dependence, chewing tobacco, uncomplicated; F17.290 Nicotine dependence, other tobacco product, uncomplicated
CPT/HCPCS: 64555; C1778; J2795

== ENCOUNTER → 2023-01-24 13:05 | Outpatient (BNVA) | payer OTHER, SELFPAY | PROVIDERS: PCP Nurse Practitioner Family; Visit Provider Anesthesiology | DX: Z48.01 Encounter for change or removal of surgical wound dressing (principal); Z79.891 Long term (current) use of opiate analgesic | CPT/HCPCS: 99211 ==

== ENCOUNTER → 2023-01-31 12:56 | Outpatient (BNVA) | payer OTHER, SELFPAY | PROVIDERS: PCP Nurse Practitioner Family; Visit Provider Anesthesiology | DX: Z48.00 Encounter for change or removal of nonsurgical wound dressing (principal); Z96.89 Presence of other specified functional implants | CPT/HCPCS: 99211 ==

== ENCOUNTER → 2023-02-11 12:59 | Outpatient (BNVA) | payer OTHER, SELFPAY | PROVIDERS: PCP Nurse Practitioner Family; Visit Provider Anesthesiology | DX: T85.12 Displacement of implanted electronic stimulator of nervous system (principal); X50.3XXA Overexertion from repetitive movements, initial encounter; Y93.E1 Activity, personal bathing and showering; Y92.9 Unspecified place or not applicable; Y99.8 Other external cause status; R23.3 Spontaneous ecchymoses | CPT/HCPCS: 99211 ==

== ENCOUNTER 2023-02-12 15:09 | Outpatient (REF) | payer OTHER, SELFPAY ==
[2023-02-12 16:54] LABS: MANUAL DIFF FLAG NO
[2023-02-12 17:00] LABS: Basophils Absolute Auto 0.1 X10*3/uL (0.0-0.2); Basophils Percent Auto 0.9 % (0-2); Eosinophils Absolute Auto 0.1 X10*3/uL (0.0-0.4); Eosinophils Percent Auto 1.6 % (0-4); Hematocrit 39.4 % (42.0-52.0); Hemoglobin 13.5 g/dl (14.0-18.0); Imm Gran Abs Auto 0.04 X10*3/uL (0.00-0.03); Imm Gran Pct Auto 0.5 % (0.0-0.4); Lymphocytes Absolute Auto 1.7 X10*3/uL (1.2-4.9); Lymphocytes Percent Auto 19.6 % (20-40); Mean Corpuscular HGB Conc 34.3 g/dl (31.0-36.0); Mean Corpuscular Hemoglobin 29.7 pg (27.0-33.0); Mean Corpuscular Volume 86.6 fL (80.0-98.0); Mean Platelet Volume 10.1 fL (9.4-12.4); Monocytes Absolute Auto 0.9 X10*3/uL (0.1-1.2); Monocytes Percent Auto 10.8 % (2-11); Neutrophils Absolute Auto 5.7 x10*3/uL (2.0-8.3); Neutrophils Percent Auto 66.6 % (45-73); Platelet Count 352 X10*3/uL (160-400); Red Blood Count 4.55 X10*6/uL (4.60-5.80); Red Cell Distribution Width 14.6 % (11.0-16.0); White Blood Count 8.5 X10*3/uL (4.8-10.8)
[2023-02-12 17:06] LABS: Prothrombin Time 11.2 SEC (10.0-13.1)
[2023-02-12 17:09] LABS: Partial Thromboplastin Time 27.7 SEC (26.0-36.4)
[2023-02-12 17:29] LABS: Alanine Aminotransferase 11 U/L (0-40); Albumin Level 3.8 g/dL (3.5-5.0); Alkaline Phosphatase 60 U/L (39-117); Anion Gap 16 (12-20); Aspartate Amino Transferase 16 U/L (5-37); Bilirubin Total 0.6 mg/dL (0.0-1.0); Blood Urea Nitrogen 11 mg/dL (9-16); Calcium 10.1 mg/dL (8.4-10.2); Carbon Dioxide 25 mmol/L (22-29); Chloride 101 mmol/L (96-108); Estimated Glomerular Filt Rate > 60; Glucose Random 105 mg/dL (60-115); Potassium 3.8 mmol/L (3.3-5.1); Sodium 138 mmol/L (135-145); Total Protein 6.6 g/dL (6.5-8.0)
[2023-02-12 17:45] LABS: Prostate Specific Antigen 0.92 ng/mL (<0.05-4.0)
[2023-02-12 17:46] LABS: TSH reflex Free T4 2.29 uIU/mL (0.32-4.0)
== END 2023-02-12 15:10 | disposition home or self-care (01) ==
LOC: HO.HMGCLDS 15:09
PROVIDERS: Absent Provider Urology; PCP Nurse Practitioner Family; Visit Provider Nurse Practitioner Family
DX: N13.8 Other obstructive and reflux uropathy (principal); N40.1 Benign prostatic hyperplasia with lower urinary tract symptoms; R23.3 Spontaneous ecchymoses; S46.219A Strain of muscle, fascia and tendon of other parts of biceps, unspecified arm, initial encounter; Z12.5 Encounter for screening for malignant neoplasm of prostate; X58.XXXA Exposure to other specified factors, initial encounter; Y93.9 Activity, unspecified; Y92.9 Unspecified place or not applicable; Y99.9 Unspecified external cause status; R53.83 Other fatigue
CPT/HCPCS: 36415; 80053; 84153; 84443; 85025; 85610; 85730

== ENCOUNTER → 2023-02-18 13:14 | Outpatient (BNVA) | payer OTHER, SELFPAY | PROVIDERS: PCP Nurse Practitioner Family; Visit Provider Anesthesiology | DX: M17.10 Unilateral primary osteoarthritis, unspecified knee (principal); M54.2 Cervicalgia; M25.511 Pain in right shoulder; M19.011 Primary osteoarthritis, right shoulder; M25.561 Pain in right knee | CPT/HCPCS: 99212 ==

== ENCOUNTER → 2023-02-26 15:00 | Outpatient (BNVA) | payer OTHER, SELFPAY | PROVIDERS: PCP Nurse Practitioner Family; Visit Provider Anesthesiology | DX: Z48.00 Encounter for change or removal of nonsurgical wound dressing (principal); Z96.82 Presence of neurostimulator | CPT/HCPCS: 99211 ==

== ENCOUNTER 2023-03-19 07:33 | Outpatient (REF) | payer OTHER, SELFPAY | END 2023-03-19 07:34 | disposition home or self-care (01) | LOC: CF 07:33 | PROVIDERS: Visit Provider Anesthesiology | DX: M19.011 Primary osteoarthritis, right shoulder (principal) | CPT/HCPCS: 64415 ==

== ENCOUNTER → 2023-03-25 14:23 | Outpatient (BNVA) | payer OTHER, SELFPAY | PROVIDERS: PCP Nurse Practitioner Family; Visit Provider Anesthesiology | DX: M17.10 Unilateral primary osteoarthritis, unspecified knee (principal); M54.2 Cervicalgia; M25.561 Pain in right knee; M25.511 Pain in right shoulder; M19.011 Primary osteoarthritis, right shoulder; F17.220 Nicotine dependence, chewing tobacco, uncomplicated; F17.290 Nicotine dependence, other tobacco product, uncomplicated | CPT/HCPCS: 99212 ==

== ENCOUNTER → 2023-03-27 15:31 | Outpatient (BNVA) | payer OTHER, SELFPAY | PROVIDERS: PCP Nurse Practitioner Family; Visit Provider Urology | DX: E29.1 Testicular hypofunction (principal); N40.1 Benign prostatic hyperplasia with lower urinary tract symptoms; N13.8 Other obstructive and reflux uropathy | CPT/HCPCS: 99212 ==

== ENCOUNTER 2023-04-16 06:01 | Outpatient (REF) | payer OTHER, SELFPAY | END 2023-04-16 06:02 | disposition home or self-care (01) | LOC: CF 06:01 | PROVIDERS: Visit Provider Anesthesiology | DX: M19.011 Primary osteoarthritis, right shoulder (principal) | CPT/HCPCS: 64415; J2795 ==

== ENCOUNTER → 2023-04-22 09:13 | Outpatient (BNVA) | payer OTHER, SELFPAY | PROVIDERS: PCP Nurse Practitioner Family; Visit Provider Anesthesiology | DX: M17.10 Unilateral primary osteoarthritis, unspecified knee (principal); M54.2 Cervicalgia; M25.511 Pain in right shoulder; M19.011 Primary osteoarthritis, right shoulder; M25.561 Pain in right knee; G89.29 Other chronic pain | CPT/HCPCS: 99212 ==

== ENCOUNTER 2023-05-28 13:27 | Outpatient (REF) | payer OTHER, SELFPAY ==
[2023-06-02 12:19] LABS: Testosterone, Total 169 ng/dL (250-1100)
== END 2023-05-28 13:28 | disposition home or self-care (01) ==
LOC: HO.HMGCLDS 13:27
PROVIDERS: PCP Nurse Practitioner Family; Visit Provider Urology
DX: E29.1 Testicular hypofunction (principal)
CPT/HCPCS: 36415; 84403

== ENCOUNTER 2023-05-28 13:55 | Outpatient (AMB) | payer OTHER, SELFPAY ==
--- NOTE | 2023-05-28 14:22 | AM.OFFWIN_ITS ---
Intake Vital Signs 05/28/23 14:27 Height 6 ft BP 142/92 H Blood Pressure Location Lt brachial Position Sitting Pulse 110 H Pulse Source Pulse Oximeter Temp 97.4 F Temp Source Temporal Artery Scan Pulse Oximetry (%) 98 Oxygen Delivery Method Room Air Intake Visit Reasons: EP ear pain, sinus? (fermin,masked) Intake Note: Pt is here c/o bad cough, bilateral ear pain and possible sinus infection. Patient Tobacco Use Status: Current everyday Tobacco user Allergies No Known Allergies [No Known Allergies*] Allergy (Verified 05/28/23 14:51) Medication List - Last Reconciled 05/28/23 by Laci Willoughby MD albuterol sulfate 90 mcg/actuation (ProAir HFA) 2 puffs inhalation Q4H PRN amlodipine 5 mg PO DAILY atorvastatin 20 mg PO BEDTIME buprenorphine HCl (Belbuca) 1,800 mcg buccal Q12H chlordiazepoxide HCl 25 mg PO BID PRN chlorthalidone 25 mg PO DAILY fluticasone propion-salmeterol 250-50 mcg/dose (Advair Diskus) 1 inh inhalation BID insulin syringe-needle U-100 (BD Insulin Syringe) As directed irbesartan 75 mg PO DAILY lisinopril 40 mg PO DAILY omega-3 acid ethyl esters 1 cap PO BID omeprazole 40 mg PO DAILY paroxetine HCl 20 mg PO DAILY 90 days potassium chloride ER 20 mEq PO DAILY 30 days terazosin 10 mg (2 x 5 mg) PO BEDTIME 90 days testosterone cypionate (Depo-Testosterone) 80 mg (0.4 mL) subcut QWEEK 4 weeks tiotropium bromide 1.25 mcg/actuation (Spiriva Respimat) 2 puffs inhalation DAILY zolpidem (Ambien) 10 mg PO BEDTIME PRN Do you need a note to return to daycare/school/sports/work: No HPI EP ear pain, sinus? (fermin,masked) HPI Details Patient presents for a sick visit. Reporting symptoms of sinus conge stion, sore throat and difficulty swallowing. Low-grade fever. No family member is sick. No recent travel. Patient reports symptoms of malaise and fatigue. 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 Cognitive needs: No Hearing needs: No Vision needs: No Physical Exam Vital Signs: Last Vital Signs Temp 97.4 F 05/28/23 14:27 Pulse 110 H 05/28/23 14:27 BP 142/92 H 05/28/23 14:27 Pulse Ox 98 05/28/23 14:27 Oxygen Delivery Method Room Air 05/28/23 14:27 Const General: cooperative and healthy appearing Nutritional Appearance: well nourished Orientation/consciousness: patient oriented x3 Limitations: no limitations HEENT Head: Yes normal to inspection Eyes General: appearance normal, both eyes and all related structures Neck Neck: Yes normal visual inspection Chest Chest palpation & inspection: normal palpation of entire chest wall Resp Effort & Inspection: normal respiratory effort Neuro General: patient oriented x3 Assessment & Plan Assessment & Plan (1) Upper respiratory tract infection: Code(s): J06.9 - Acute upper respiratory infection, unspecified Plan: Antibiotics ordered. Increase fluid intake. Tylenol for aches and pains. If symptoms worsen, follow-up here for a recheck. Coding Level of Care Code Est Pt Level 3 (77651) Diagnoses Upper respiratory tract infection J06.9
[2023-05-28 14:27] VITALS: BP 142/92; PULSE 110; TEMP 36.3; O2SAT 98
== END 2023-05-28 15:12 | disposition home or self-care (01) ==
PROVIDERS: PCP Nurse Practitioner Family; Visit Provider Internal Medicine
DX: J06.9 Acute upper respiratory infection, unspecified (principal)
CPT/HCPCS: 99213

== ENCOUNTER 2023-06-28 09:32 | Outpatient (AMB) | payer OTHER, SELFPAY ==
--- NOTE | 2023-06-28 09:33 | MHC.OFFVIS ---
Intake Intake Visit Reasons: 3M Testosterone(set) Intake Note: Patient is present for Telephone Testosterone follow up Urology Med: Terazosin, Testosterone Antibiotic Allergy: None Blood Thinner: None Pharmacy: [facility] Allergies No Known Allergies [No Known Allergies*] Allergy (Verified 06/28/23 09:34) Medication List - Last Reconciled 06/28/23 by All Orta MD albuterol sulfate 90 mcg/actuation (ProAir HFA) 2 puffs inhalation Q4H PRN amlodipine 5 mg PO DAILY atorvastatin 20 mg PO BEDTIME azithromycin take 500 mg today (day 1), then 250 mg for 4 days (days 2-5) PO buprenorphine HCl (Belbuca) 1,800 mcg buccal Q12H chlordiazepoxide HCl 25 mg PO BID PRN chlorthalidone 25 mg PO DAILY fluticasone propion-salmeterol 250-50 mcg/dose (Advair Diskus) 1 inh inhalation BID insulin syringe-needle U-100 (BD Insulin Syringe) As directed irbesartan 75 mg PO DAILY lisinopril 40 mg PO DAILY omega-3 acid ethyl esters 1 cap PO BID omeprazole 40 mg PO DAILY paroxetine HCl 20 mg PO DAILY 90 days potassium chloride ER 20 mEq PO DAILY 30 days terazosin 10 mg (2 x 5 mg) PO BEDTIME 90 days testosterone cypionate (Depo-Testosterone) 80 mg (0.4 mL) subcut QWEEK 4 weeks tiotropium bromide 1.25 mcg/actuation (Spiriva Respimat) 2 puffs inhalation DAILY zolpidem (Ambien) 10 mg PO BEDTIME PRN HPI HPI Comments History of Present Illness Details Guanako is a pleasant male. He is a patient of Dr. Julian. He is seen for the following urologic issues - hypogonadism - lower urinary tract symptoms Telemedicine Evaluation 15 min Consultation [employer] Constantino Video attempted Continue with 0.4 cc subcutaneous testosterone 6 month f/u with labs 2 weeks prior Injection Day: Saturday Lab test Day: Hypogonadism: Other issues been with pain management. We need to normalize his testosterone before his overall pain management can be optimized. - Did encourage him to drink less alcohol is this also factors in. He presents today for further evaluation and followup of his hypogonadism. Initial symptoms include erectile dysfunction Yes decreased libido Yes change in mood/depression Yes in muscle size/strength Yes increased fatigue/malaise Yes Associate conditions include obstructive sleep apnea Yes CAD No obesity No stress - financial, family, employment No heavy alcohol or illicit drug use Yes 300 cc 100 proof alcohol per evening previously He has been taking History of intermittent external testosterone use. Laboratory results 03/29 T 54 04/29 707 High estrogen 07/30 1800 10/29 T 223 - 03/31 T 473, PSA 0.8, 12/02 203 P 0.5 E5, 06/01 T 200, 11/01 T 670 P 2.3 Diagnosis based on history and laboratory results Primary testicular failure, secondary to, exogenous steroid administration. 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 Cognitive needs: No Hearing needs: No Vision needs: No Review of Systems Const All systems reviewed & are unremarkable except as noted in HPI and below Reports no additional complaints Resp Reports no additional complaints GI Reports no additional complaints Reports as per HPI Musc Reports no additional complaints Physical Exam Telemedicine evaluation Appropriate responses Regular breathing rate and rhythm HEENT Head: Yes normal to inspection Ears: hearing grossly normal bilaterally Eyes General: appearance normal, both eyes and all related structures Neck Neck: Yes normal visual inspection Chest Chest palpation & inspection: normal inspection of the chest Resp Effort & Inspection: normal respiratory effort and able to speak in complete sentences Assessment & Plan Assessment & Plan (1) Hypogonadism in male: Code(s): E29.1 - Testicular hypofunction Plan 6 month follow-up Orders: Orders Testosterone, Total 05/28/23 E29.1 - Testicular hypofunction Prostate Specific Antigen 6 Months E29.1 - Testicular hypofunction Testosterone, Total 6 Months E29.1 - Testicular hypofunction Complete Blood Count no Diff 6 Months E29.1 - Testicular hypofunction Medications: Refilled testosterone cypionate (Depo-Testosterone) 80 mg (0.4 mL) subcut QWEEK 2 mL 5RF 4 weeks E29.1 - Testicular hypofunction, [id number] Patient Instructions: Imaging studies, laboratory and physical exam results were discussed and reviewed in detail. No major barriers to patient understanding were identified. An opportunity to ask questions regarding the treatment plan was provided. All questions were answered. The patient expressed understanding and agreement with the above treatment plan. The patient is aware they should contact our office by phone for worsening of their current condition or the appearance of new urologic symptoms. Compliance is encouraged with any medications and followup testing that is ordered. It is a privilege to participate in the urologic care of your patient. If you have any questions or concerns regarding treatment for the above conditions, or other urologic issues, please do not hesitate to contact me. The office telephone contact is [phone]. This note is constructed using voice recognition software. While every effort has been made to ensure accuracy high frequency mill operator errors may have been included. Yours sincerely, Dr All Orta MD, [facility] - Urology Providers of Expert, Compassionate Care for the Genitourinary System Telehealth Telehealth Location of provider rendering services: practice address Location of patient: address on file Patient Identification confirmed using: Name, : Yes Telehealth method: video Patient verbally consented to treatment: Yes Patient verbally consented to billing insurance company: Yes Patient informed of any privacy concerns related to visit: Yes Coding Level of Care Code Tele Est Pt Level 3 (62947) Diagnoses Hypogonadism in male E29.1
== END 2023-06-28 10:11 | disposition home or self-care (01) ==
LOC: HO.HUSH 09:32
PROVIDERS: PCP Nurse Practitioner Family; Visit Provider Urology
DX: E29.1 Testicular hypofunction (principal)
CPT/HCPCS: 99213

== ENCOUNTER → 2023-06-28 09:32 | Outpatient (BNVA) | payer OTHER, SELFPAY | PROVIDERS: PCP Nurse Practitioner Family; Visit Provider Urology ==

== ENCOUNTER 2023-07-02 06:01 | Outpatient (REF) | payer OTHER, SELFPAY | END 2023-07-02 06:02 | disposition home or self-care (01) | LOC: CF 06:01 | PROVIDERS: Visit Provider Anesthesiology | DX: M19.011 Primary osteoarthritis, right shoulder (principal); M25.511 Pain in right shoulder | CPT/HCPCS: 64415 ==

== ENCOUNTER 2023-07-02 09:16 | Outpatient (AMB) | payer OTHER, SELFPAY ==
[2023-07-02 09:23] VITALS: BP 140/82; PULSE 99; RESP 18; O2SAT 94; BMI 27.0
--- NOTE | 2023-07-02 09:23 | MHC.OFFVIS ---
Intake Vital Signs 07/02/23 09:23 07/02/23 10:09 Height 6 ft 6 ft Weight 199 lb 199 lb BMI 27.0 27.0 BP 140/82 H 116/84 Blood Pressure Location Rt brachial Rt brachial Position Sitting Sitting Respiration 18 18 Pulse 99 110 H Pulse Source Pulse Oximeter Pulse Oximeter Pulse Oximetry (%) 94 96 Oxygen Delivery Method Room Air Room Air Comment pre-op post-op Intake Visit Reasons: R INTERSCALENE BRACHIAL PLEXUS BLOCK Allergies No Known Allergies [No Known Allergies*] Allergy (Verified 07/02/23 09:23) [facility] Medical History Anxiety Cervicalgia Clubbing of nails Depression Hypogonadism in male Hypothyroidism Knee osteoarthritis Lumbar degenerative disc disease 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 Cognitive needs: No Hearing needs: No Vision needs: No Physical Exam Vital Signs: Last Vital Signs Pulse 110 H 07/02/23 10:09 Resp 18 07/02/23 10:09 BP 116/84 07/02/23 10:09 Pulse Ox 96 07/02/23 10:09 Oxygen Delivery Method Room Air 07/02/23 10:09 BMI result Body Mass Index 27.0 Assessment & Plan Assessment & Plan (1) Primary osteoarthritis, right shoulder: Code(s): M19.011 - Primary osteoarthritis, right shoulder (2) Right shoulder pain: Code(s): M25.511 - Pain in right shoulder Plan Right supraclavicular brachial plexus diagnostic injection. This patient was brought to the examination room where he positioned supine on the stretcher with upper torso elevated and head dated to the left side away from the side of the procedure. Time-out was performed delineating correct site and side of the procedure name and date of of the patient. The area of the right neck and upper chest were prepped with ChloraPrep and draped with sterile utility towel. The sterilely draped ultrasound probe was brought over the operating field and brachial plexus was demonstrated in the supraclavicular fossa. . 100 mm echo positive echo stim needle was inserted extra anatomically through the skin and advanced to were the target in in Plain fashion. When needle entered vicinity of plexus injection of the normal saline performed demonstrating proper spread of the normal saline in the area. After that 7 cc of ropivacaine 0.5% were injected into the needle. After that needle was removed sterile Band-Aid was applied. Patient tolerated procedure well. He went home without immediate complications. Orders: Orders FL guidance in treatment room Today M19.011 - Primary osteoarthritis, right shoulder Coding Level of Care Code Procedure Only Diagnoses Primary osteoarthritis, right shoulder M19.011 Right shoulder pain M25.511
[2023-07-02 10:09] VITALS: BP 116/84; PULSE 110; RESP 18; O2SAT 96; BMI 27.0
== END 2023-07-02 10:31 | disposition home or self-care (01) ==
LOC: HO.PMCPRC 09:16
PROVIDERS: PCP Nurse Practitioner Family; Visit Provider Anesthesiology
DX: M19.011 Primary osteoarthritis, right shoulder (principal); M25.511 Pain in right shoulder
CPT/HCPCS: 64415; 76942

== ENCOUNTER 2023-07-04 09:05 | Outpatient (AMB) | payer OTHER, SELFPAY ==
--- NOTE | 2023-07-04 09:08 | A.OFFVIS_ITS ---
Intake Vital Signs 07/04/23 09:12 Height 6 ft Weight 202 lb BMI 27.4 BP 118/77 Blood Pressure Location Lt brachial Position Sitting Respiration 18 Pulse 104 H Pulse Source Pulse Oximeter Pulse Oximetry (%) 95 Oxygen Delivery Method Room Air Intake Visit Reasons: R INTERSCALENE BRACHIAL PLEXUS BLOCK 07/02/23 Allergies No Known Allergies [No Known Allergies*] Allergy (Verified 07/04/23 09:13) HPI HPI Comments History of Present Illness Details Guanako is back in my office status post diagnostic right interscalene nerve block repeat. He reports excellent pain relief. He reports pain 0 to 1 /10 in the 1st 4 hours after the procedure. He reports pain slowly started to come back on the 5th hour after the procedure. He still reports significant pain relief in the left shoulder. He reports slight improvement with left shoulder mobility although he was told that this is not the goal. I will send [facility] for [facility]. As soon as [facility] psychological evaluation is back I will schedule him for [facility] trial of PNS interscalene position of the wire. Prior: right supraclavicular nerve block: pain improvement after the block. He is not receiving any significant numbness or paralysis of the right upper extremity. The dose of the anesthetic was low as well. Previously he had right interscalene nerve block. He reported significant numbness in the projection of the right pectoral muscle. He reports 40-50% pain improvement in the shoulder for the 1st couple of hours after the injection. He reported after that pain came back to the previous baseline. He does not report significant paralysis of the right upper extremity but he reports significant numbness of the anterior chest and anterior shoulder. He reports that his pain on the lateral shoulder remained intact and the was aggravated by the procedure. I recommended him to consider right supraclavicular brachial plexus block in the order to attempt to properly alleviate his pain. This is the only thing I can offer today to the patient. He was suspended prior in our opioid program indefinitely, is that he is taking alcohol to numb his pain in the shoulder. I told him that this is not a good idea to treat his pain. I told him that treatment of pain with chronic opioid therapy on the longer run will result in no better outcome than not treatment of the medication at all. He agreed to try supraclavicular brachial plexus block on the right to diagnose his pain. If he wants to continue opioid therapy I recommended him to find a primary care physician who will be willing to prescribe opioid medications for him. Nonopioid medications were discussed with the patient including Celebrex, ketamine, NSAIDs, anticonvulsants and antidepressants. 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 Cognitive needs: No Hearing needs: No Vision needs: No Review of Systems Const All systems reviewed & are unremarkable except as noted in HPI and below Physical Exam Vital Signs: Last Vital Signs Pulse 104 H 07/04/23 09:12 Resp 18 07/04/23 09:12 BP 118/77 07/04/23 09:12 Pulse Ox 95 07/04/23 09:12 Oxygen Delivery Method Room Air 07/04/23 09:12 BMI result Body Mass Index 27.4 Const General: comfortable, no acute distress, well developed, alert and awake Eyes EOM: EOMs intact bilaterally Chest Chest palpation & inspection: normal inspection of the chest Resp Effort & Inspection: normal respiratory effort, able to speak in complete sentences, normal respiratory pattern, no audible wheezes and no cough Cardio Jugular venous distension: no JVD Back/Spine/Pelvis Other: tenderness on palpation in paraspinal spinal region in lumbar spine. Loading test is positive. Range of motion in lumbar spine is preserved. Thom test is negative bilaterally. Extrem Other: Very severe tenderness on palpation of the right shoulder. Crepitus on palpation of the right shoulder. Range of motion is significantly limited on the right shoulder. Psych Speech and movement: Pressured speech present Affect: Labile affect present Attitude: Belligerent attititude/behavior present Thought process: Perseverating thought process present Thought content: Depressive thoughts present Insight: Limited insight present (Psych) Judgement: Limited judgement present (Psych) Assessment & Plan Assessment & Plan (1) Knee osteoarthritis: Code(s): M17.10 - Unilateral primary osteoarthritis, unspecified knee (2) Cervicalgia: Code(s): M54.2 - Cervicalgia (3) Right shoulder pain: Code(s): M25.511 - Pain in right shoulder (4) Primary osteoarthritis, right shoulder: Code(s): M19.011 - Primary osteoarthritis, right shoulder Plan: Repeat of the interscalene nerve block performed on 07/02/2023 resulted in very profound and extended pain relief. Now we can consider him as a candidate for peripheral nerve stimulation by [employer]. I will schedule him for psychological exam with [facility]. I will see him as soon as possible for the trial once he is approved by psychological evaluation. (5) Right knee pain: Code(s): M25.561 - Pain in right knee (6) Right shoulder pain: Code(s): M25.511 - Pain in right shoulder (7) Primary osteoarthritis, right shoulder: Code(s): M19.011 - Primary osteoarthritis, right shoulder (8) Chronic pain: Code(s): G89.29 - Other chronic pain Coding Level of Care Code Est Pt Level 3 (26361) Diagnoses Knee osteoarthritis M17.10 Cervicalgia M54.2 Right shoulder pain M25.511 Primary osteoarthritis, right shoulder M19.011 Right knee pain M25.561 Chronic pain G89.29
[2023-07-04 09:12] VITALS: BP 118/77; PULSE 104; RESP 18; O2SAT 95; BMI 27.4
== END 2023-07-04 09:16 | disposition home or self-care (01) ==
PROVIDERS: PCP Nurse Practitioner Family; Visit Provider Anesthesiology
DX: M17.10 Unilateral primary osteoarthritis, unspecified knee (principal); M54.2 Cervicalgia; M25.511 Pain in right shoulder; M19.011 Primary osteoarthritis, right shoulder; M25.561 Pain in right knee; G89.29 Other chronic pain
CPT/HCPCS: 99213

== ENCOUNTER → 2023-07-04 09:05 | Outpatient (BNVA) | payer OTHER, SELFPAY | PROVIDERS: PCP Nurse Practitioner Family; Visit Provider Anesthesiology | DX: M17.10 Unilateral primary osteoarthritis, unspecified knee (principal); M54.2 Cervicalgia; M25.511 Pain in right shoulder; M19.011 Primary osteoarthritis, right shoulder; M25.561 Pain in right knee; G89.29 Other chronic pain | CPT/HCPCS: 99212 ==

== ENCOUNTER 2023-07-25 12:53 | Emergency (ER) | payer OTHER, SELFPAY ==
--- NOTE | ~2023-07-25 | XR_ITS ---
EXAMINATION: XR SHOULDER, LEFT CLINICAL INFORMATION: Fall down stairs COMPARISON: None available. TECHNIQUE: AP external rotation, Grashey, scapular Y, and axillary views of the left shoulder. FINDINGS: No acute fracture is detected. There are degenerative changes of the left shoulder with a prominent undersurface humeral osteophyte and glenohumeral joint space narrowing. Acromioclavicular degenerative changes are also evident. XR/XR shoulder LT min 2V IMPRESSION: Degenerative changes but no acute fracture or subluxation of the left shoulder.
[2023-07-25 13:25] VITALS: BP 136/103; PULSE 110; RESP 18; TEMP 37.1; O2SAT 95; BMI 26.4
--- NOTE | 2023-07-25 13:29 | ED_ITS ---
HPI - Extremity Problem General Chief complaint: Extremity Injury, Upper Stated complaint: Fall, L shoulder dislocated Time Seen by Provider: 07/25/23 15:33 Source: patient, RN notes reviewed and old records reviewed Mode of arrival: ambulatory History of Present Illness HPI Narrative: 53-year-old male with past medical history of asthma, service solid jaw, sleep apnea, PTSD, anxiety, osteoarthritis, ETOH abuse presenting to the ED comp laining of left shoulder pain s/p falling down 14 stairs 3 days ago. Patient states he got up from sleeping, got up quickly felt dizzy, syncopized and fell down the stairs, unknown head trauma or LOC. Patient reports history of orthostasis with multiple syncopal episodes in the past related to postural changes. Denies other complaints at present other than shoulder pain. Denies headache, neck/back pain, CP/SOB, abdominal pain, nausea/vomiting, incontinence/retention. Denies EtOH or drug use. MD Complaint: extremity pain Related Data Home Medications Medication Instructions Recorded Confirmed albuterol sulfate 90 mcg/actuation 2 puff inhalation Q4H PRN muscle 10/16/22 06/28/23 aerosol inhaler (ProAir HFA) spasm fluticasone 250 mcg-salmeterol 50 1 inh inhalation BID 11/06/22 06/28/23 mcg/dose blistr powdr for inhalation (Advair Diskus) buprenorphine HCl 900 mcg buccal 1,800 mcg buccal Q12H 05/01/23 06/28/23 film (Belbuca) chlordiazepoxide HCl 25 mg capsule 25 mg PO BID PRN alcohol withdrawal 05/01/23 06/28/23 lisinopril 40 mg tablet 40 mg PO DAILY 05/01/23 06/28/23 oxycodone 5 mg tablet 5 mg PO BID PRN 07/02/23 Previous Rx's Medication Instructions Recorded potassium chloride 20 mEq 20 meq PO DAILY 30 days #30 tabs 10/28/22 tablet,extended release omeprazole 40 mg capsule,delayed 40 mg PO DAILY #90 caps 11/04/22 release amlodipine 5 mg tablet 5 mg PO DAILY #90 tabs 11/28/22 paroxetine HCl 20 mg tablet 20 mg PO DAILY 90 days #90 tabs 03/09/23 insulin syringe-needle U-100 1 mL #30 ea 03/27/23 25 gauge x 5/8 (BD Insulin Syringe) terazosin 5 mg capsule 10 mg (2 x 5 mg) PO BEDTIME 90 04/03/23 days #180 caps zolpidem 10 mg tablet (Ambien) 10 mg PO BEDTIME PRN sleep #30 tabs 04/09/23 chlorthalidone 25 mg tablet 25 mg PO DAILY #30 tabs 04/30/23 atorvastatin 20 mg tablet 20 mg PO BEDTIME #90 tabs 05/04/23 azithromycin 250 mg tablet See Rx Instructions PO .COMPLEX #6 05/28/23 tabs irbesartan 75 mg tablet 75 mg PO DAILY #90 tabs 06/03/23 omega-3 acid ethyl esters 1 gram 1 cap PO BID #180 caps 06/04/23 capsule albuterol sulfate 90 mcg/actuation 2 puff inhalation Q6H PRN 06/28/23 aerosol inhaler (Ventolin HFA) shortness of breath or wheezing #8.5 grams testosterone cypionate 200 mg/mL 80 mg (0.4 mL) subcut QWEEK 4 06/28/23 intramuscular oil weeks #2 mL (Depo-Testosterone) tiotropium bromide 1.25 2 puff inhalation DAILY #4 grams 07/20/23 mcg/actuation mist for inhalation (Spiriva Respimat) acetaminophen 500 mg tablet 500 mg PO Q6H PRN fever or pain 07/25/23 (Tylenol Extra Strength) #14 tabs cyclobenzaprine 5 mg tablet 5 mg PO Q8H PRN pain (scale score 07/25/23 7-10) 5 days #14 tabs lidocaine 5 % topical patch 1 patch topical DAILY PRN pain #30 07/25/23 (Lidoderm) ea naproxen 500 mg tablet 500 mg PO BID PRN pain 10 days #20 07/25/23 tabs Allergies Allergy/AdvReac Type Severity Reaction Status Date / Time No Known Allergies Allergy Verified 07/25/23 13:28 [No Known Allergies*] Review of Systems Review of Systems: Constitutional: No Fever, No Chills, No Fatigue, No Malaise ENT/Mouth: No Ear Pain, No Nasal Congestion, No sore throat, No Rhinorrhea, No Swallowing Difficulty Eyes: No Eye Pain, No Swelling, No Redness, No Vision Changes Cardiovascular: No Chest Pain, No SOB Respiratory: No Cough, No Sputum, No Dyspnea Gastrointestinal: No Nausea, No Vomiting, No Abdominal pain Genitourinary: No Dysuria, No Urinary Frequency, No Hematuria, No Urinary Incontinence/retention, No Flank Pain Musculoskeletal: + joint pain, No Myalgias, + Joint Swelling Skin: No Skin Lesions, No rash Neuro: No Weakness, No Numbness, No Paresthesias, + Loss of Consciousness, No Dizziness, No Headache Yes all other systems are reviewed and are negative Constitutional: Constitutional: Reports as per HPI Neurologic: Denies Abnormal speech present [facility], [facility] Past Medical History Attestation statement: The following information was validated with the patient. 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 Cognitive needs: No Hearing needs: No Vision needs: No Physical Exam Vital Signs: Vital Signs: Last Vital Signs Temp 98.7 F 07/25/23 16:20 Pulse 99 07/25/23 16:20 Resp 20 07/25/23 16:20 BP 151/100 H 07/25/23 16:20 Pulse Ox 96 07/25/23 16:20 O2 Del Method Room Air 07/25/23 16:20 BMI result Body Mass Index 26.4 Const: Other: Uncooperative, writhing around stretcher yelling in pain. Wearing sunglasses during entire evaluation General: no acute distress Orientation/consciousness: patient oriented x 3 Limitations: no limitations HEENT: Head: Yes normal to inspection, Yes atraumatic, No Ye's sign and No raccoon eyes Ears: hearing grossly normal bilaterally General nose exam: Normal external nose present Face and sinus: Yes normal facial exam Throat: Yes posterior oropharynx normal Eyes: General: appearance normal, both eyes and all related structures Pupils: Equal, round and reactive pupils present and Pinpoint pupils bilaterally EOM: EOMs intact bilaterally Neck: Neck: Yes normal visual inspection, Yes no meningeal signs, No anterior neck swelling and No torticollis Chest: Chest palpation & inspection: normal inspection of the chest, no crepitus and no tenderness Resp: Effort & Inspection: normal respiratory effort and no respiratory distress Auscultation: clear to auscultation bilaterally Cardio: Rate: regular rate Heart sounds: S1 normal heart sound present and S2 normal heart sound present GI: Inspection: Yes normal to inspection Palpation (GI): Soft to palpation, nontender, no guarding and not rigid : General: Yes no CVA tenderness Back/Spine/Pelvis: Other: No midline cervical/thoracic/lumbar spinous tenderness/step-off or deformity Back: no CVA tenderness Skin: Rashes: no rashes Wounds: no wounds Neuro: General: patient oriented x3, gait normal, tone normal, moves all extremities, no meningeal signs, no focal motor deficits and CN's II-XI intact bilaterally Cranial nerves: Yes CN's II-XII intact bilaterally, Yes Equal, round and reactive pupils present and Yes Bilaterally intact EOM present Cognition (Neuro): normal cognition Speech: No Abnormal speech present Gait exam (Neuro): Normal gait present Motor exam (neuro): 5/5 motor strength present throughout Extrem: Other: Left shoulder with mild swelling/slight deformity ?Chronic, nontender to palpation. Limited ROM secondary to pain. Neurovascular intact distally. No erythema/warmth or crepitus. No ecchymosis. Course Course Course Narrative: This is an RME: Additional HPI, ROS, PE not included below will be deferred to primary provider. This is a 37-kg[age]-sdx-male, with a past medical history of hypothryoidism, PTSD, osteoarthritis, pulmonary nodules, presenting to the emergency department with complaints of left shoulder pain x 3 days. Patient reports that he fell 2 days ago and landed onto his left shoulder. He states that he stood up too fast felt dizzy and fell into his left shoulder. He states that this happens to occasionally. He is not on blood thinners. Pain worsens with movement. Vital signs stable. No chest pain or shortness of breath. Plan: X-ray XR shoulder LT min 2V IMPRESSION: Degenerative changes but no acute fracture or subluxation of the left shoulder. Results discussed with patient including worrisome signs and symptoms and strict return precautions, and when to return to the emergency department. They verbalized understanding and feel safe for discharge at this time. Medications Administered Discontinued Medications Generic Name Dose Route Start Last Admin Trade Name Freq PRN Reason Stop Dose Admin Cyclobenzaprine HCl 10 mg 07/25/23 15:40 07/25/23 16:07 Cyclobenzaprine Hcl 10 Mg Tablet PO 07/25/23 15:41 10 mg ONCE ONE Administration Ketorolac Tromethamine 30 mg 07/25/23 15:40 07/25/23 16:11 Ketorolac Tromethamine 30 Mg/Ml Vial IM 07/25/23 15:41 30 mg ONCE ONE Administration Lidocaine 1 patch 07/25/23 15:40 07/25/23 16:08 Lidocaine 4 % Patch Adh..Patch TRANSDERMA 07/25/23 15:41 1 patch ONCE ONE Administration Protocol Medical Decision Making Medical Decision Making MDM Narrative: 53-year-old male with past medical history of asthma, service solid jaw, sleep apnea, PTSD, anxiety, osteoarthritis, ETOH abuse presenting to the ED complaining of left shoulder pain s/p falling down 14 stairs 3 days ago. Patient states he got up from sleeping, got up quickly felt dizzy, syncopized and fell down the stairs, unknown head trauma or LOC. on exam hypertensive, tachycardic likely from pain/rising in stretcher. Physical exam as above with suspected chronic left shoulder deformity, nontender however limited ROM secondary to pain. No midline spinous tenderness throughout, no red flag symptoms, no evidence of trauma, abdomen soft/nontender, ambulating with steady gait. Concern for fracture versus dislocation versus sprain versus shoulder separation or tendon/ligamental injury. Concern for orthostasis and syncope vs substance abuse. Low suspicion for ACS/PE, intra-abdominal or intrathoracic bleeding/injury. Low suspicion for ICH with duration of time since incident. Plan: X-rays ordered in triage. Offered patient labs/further workup including head CT however not agreeable, states only thing bothering him is his shoulder. Please refer to course for remaining clinical decision making, interpretation of labs/imaging results, and discussions with consultants and/or family members. Differential Diagnosis Differential Diagnoses: The differential diagnosis associated with the presentation includes As above Admission/Observation Consideration of admission/observation: Escalation of care including admission/observation considered Lab Data MDM Lab Attestation statement: I reviewed the patient's lab results. Radiology Impression Discussion of test interpretation with radiology: I have reviewed the radiologist's reading. External Record Review External record reviewed: Inpatient record, Office record, Outpatient record, Prior outpatient labs, Prior outpatient radiology, Primary care record and Outside ED record Tests considered The following testing was considered but not selected: As above Prescription Management I considered prescription management with: Pain Medication Discharge Plan Discharge Clinical Impression: Acute shoulder pain, Syncope Patient Disposition: Home, Self-Care Instructions: Syncope (DC), Shoulder Pain (ED) Additional Instructions: your x-ray was unremarkable Your pain is likely musculoskeletal Flexeril is a muscle relaxer, take at night as it makes you drowsy, do not drive, drink alcohol, or operate machinery while taking it Naproxen as an anti-inflammatory / pain medication, take with food Lidoderm patches are numbing patches, apply to painful area In addition take Tylenol at home If symptoms persist or worsen, pain becomes unbearable, you developed urinary retention or incontinence, or weakness return to the ED Prescriptions: New acetaminophen [Tylenol Extra Strength] 500 mg tablet 500 mg PO Q6H PRN (Reason: fever or pain) Qty: 14 0RF lidocaine [Lidoderm] 5 % adhesive patch,medicated 1 patch topical DAILY MDD remove after 12 hours PRN (Reason: pain) Qty: 30 0RF Rx Instructions: leave on most painful area for up to 12 hrs naproxen 500 mg tablet 500 mg PO BID PRN (Reason: pain) 10 Days Qty: 20 0RF cyclobenzaprine 5 mg tablet 5 mg PO Q8H PRN (Reason: pain (scale score 7-10)) 5 Days Qty: 14 0RF No Action potassium chloride 20 mEq tablet extended release 20 meq PO DAILY 30 Days Qty: 30 3RF omeprazole 40 mg capsule,delayed release(DR/EC) 40 mg PO DAILY Qty: 90 2RF amlodipine 5 mg tablet 5 mg PO DAILY Qty: 90 0RF paroxetine HCl 20 mg tablet 20 mg PO DAILY 90 Days Qty: 90 0RF terazosin 5 mg capsule 10 mg PO BEDTIME 90 Days Qty: 180 1RF zolpidem [Ambien] 10 mg tablet 10 mg PO BEDTIME PRN (Reason: sleep) Qty: 30 0RF Rx Instructions: BRAND NAME ONLY PLEASE chlorthalidone 25 mg tablet 25 mg PO DAILY Qty: 30 3RF atorvastatin 20 mg tablet 20 mg PO BEDTIME Qty: 90 1RF irbesartan 75 mg tablet 75 mg PO DAILY Qty: 90 1RF omega-3 acid ethyl esters 1 gram capsule 1 cap PO BID Qty: 180 1RF albuterol sulfate [Ventolin HFA] 90 mcg/actuation HFA aerosol inhaler 2 puff inhalation Q6H PRN (Reason: shortness of breath or wheezing) Qty: 8.5 1RF Spiriva Respimat 1.25 mcg/actuation mist 2 puff INHALATION DAILY Qty: 4 1RF albuterol sulfate [ProAir HFA] 90 mcg/actuation HFA aerosol inhaler 2 puff INHALATION Q4H PRN (Reason: muscle spasm) fluticasone propion-salmeterol [Advair Diskus] 250-50 mcg/dose blister with device 1 inh inhalation BID chlordiazepoxide HCl 25 mg capsule 25 mg PO BID PRN (Reason: alcohol withdrawal) lisinopril 40 mg tablet 40 mg PO DAILY buprenorphine HCl [Belbuca] 900 mcg film 1,800 mcg buccal Q12H azithromycin 250 mg tablet See Rx Instructions PO .COMPLEX Qty: 6 0RF Rx Instructions: take 500 mg today (day 1), then 250 mg for 4 days (days 2-5) PO (DME) BD Insulin Syringe 1 mL 25 gauge x 5/8 syringe See Rx Instructions .MEDSUPPLY Qty: 30 0RF Rx Instructions: As directed testosterone cypionate [Depo-Testosterone] 200 mg/mL oil 80 mg subcut QWEEK 28 Days Qty: 2 5RF oxycodone 5 mg tablet 5 mg PO BID PRN Referrals: [facility] [Provider Group] - 1 week Jose Owen, [facility] [Primary Care Provider] -
[2023-07-25] MEDS: Cyclobenzaprine HCl 10 MG TABLET PO (16:07)
[2023-07-25] MEDS: Lidocaine 4 % Patch ADH..PATCH 1 PATCH TRANSDERMA (16:08)
[2023-07-25] MEDS: Ketorolac Tromethamine 30 MG/ML VIAL IM (16:11)
--- NOTE | 2023-07-25 16:12 | PC.NURSE ---
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
[2023-07-25 16:20] VITALS: BP 151/100; PULSE 99; RESP 20; TEMP 37.1; O2SAT 96
== END 2023-07-25 16:33 | disposition home or self-care (01) ==
PROVIDERS: Emergency Provider Student in an Organized Health Care Education/Training Program; PCP Nurse Practitioner Family
DX: M25.512 Pain in left shoulder (principal); R55 Syncope and collapse; F17.210 Nicotine dependence, cigarettes, uncomplicated; Z79.899 Other long term (current) drug therapy
CPT/HCPCS: 73030; 96372; 99283; 99284; J1885

== ENCOUNTER 2023-10-19 10:57 | Inpatient (IN) | payer OTHER, SELFPAY ==
--- NOTE | ~2023-10-19 | CT_ITS ---
EXAMINATION: CT ABDOMEN AND PELVIS WITH CONTRAST CLINICAL INFORMATION: Nausea and vomiting COMPARISON: Previous CT of the abdomen and pelvis June 2022 TECHNIQUE: Multidetector volumetric images were obtained from the superior aspect of the liver through the pubic symphysis following administration 85 mL of Omnipaque 350 intravenous contrast. Sagittal and coronal reformatted images were obtained on the technologist's workstation. Oral contrast: Yes This CT examination was performed using dose optimization techniques as appropriate, variously including the following: *Automated exposure control *Adjustment of mA and/or kV according to patient size (this includes techniques or standardized protocols for targeted exams where dose is matched to indication/reason for exam; i.e. extremities or head) *Use of iterative reconstruction technique DLP: 532 mGy-cm FINDINGS: LUNG BASES: There is wall thickening of the distal thoracic esophagus. There may be a small hiatal hernia. There is a trace pericardial lung bases are clear. LIVER, GALLBLADDER, AND BILIARY TREE: Enlarged fatty liver.. No focal hepatic lesion or biliary ductal dilatation is present. The gallbladder is unremarkable with no evidence of radiopaque gallstones, gallbladder wall thickening, or obvious pericholecystic inflammatory changes. PANCREAS: Unremarkable. SPLEEN: Unremarkable. ADRENAL GLANDS: Unremarkable. KIDNEYS AND URETERS: The kidneys are normal in size, shape, and attenuation. No hydronephrosis, hydroureter, or calculi seen. No perinephric stranding. BLADDER: Unremarkable. GASTROINTESTINAL TRACT: Diverticulosis of the colon. No evidence of diverticulitis. The small and large bowel are otherwise unremarkable. The appendix is unremarkable. ABDOMINAL WALL: No significant hernia is appreciated. LYMPH NODES: Normal. VASCULAR: Unremarkable. PELVIC VISCERA: Unremarkable. OSSEOUS STRUCTURES: Degenerative changes of the spine. Bilateral femoral head AVN CT/CT abdomen pelvis w IV con IMPRESSION: Wall thickening of the distal thoracic esophagus and question small hiatal hernia. Enlarged fatty liver. Mild diverticulosis. Bilateral femoral head AVN. Fleischner guidelines were followed.
[2023-10-19 11:04] VITALS: BP 135/98; PULSE 137; RESP 17; TEMP 35.8; O2SAT 95; BMI 26.3
--- NOTE | 2023-10-19 11:10 | ED.GENADULT ---
HPI - General Adult General Stated complaint: throat swelling diff breathing Related Data Home Medications Medication Instructions Recorded Confirmed albuterol sulfate 90 mcg/actuation 2 puff inhalation Q4H PRN muscle 10/16/22 06/28/23 aerosol inhaler (ProAir HFA) spasm buprenorphine HCl 900 mcg buccal 1,800 mcg buccal Q12H 05/01/23 06/28/23 film (Belbuca) chlordiazepoxide HCl 25 mg capsule 25 mg PO BID PRN alcohol withdrawal 05/01/23 06/28/23 lisinopril 40 mg tablet 40 mg PO DAILY 05/01/23 06/28/23 oxycodone 5 mg tablet 5 mg PO BID PRN 07/02/23 Previous Rx's Medication Instructions Recorded potassium chloride 20 mEq 20 meq PO DAILY 30 days #30 tabs 10/28/22 tablet,extended release omeprazole 40 mg capsule,delayed 40 mg PO DAILY #90 caps 11/04/22 release paroxetine HCl 20 mg tablet 20 mg PO DAILY 90 days #90 tabs 03/09/23 insulin syringe-needle U-100 1 mL #30 ea 03/27/23 25 gauge x 5/8 (BD Insulin Syringe) zolpidem 10 mg tablet (Ambien) 10 mg PO BEDTIME PRN sleep #30 tabs 04/09/23 chlorthalidone 25 mg tablet 25 mg PO DAILY #30 tabs 04/30/23 atorvastatin 20 mg tablet 20 mg PO BEDTIME #90 tabs 05/04/23 azithromycin 250 mg tablet See Rx Instructions PO .COMPLEX #6 05/28/23 tabs irbesartan 75 mg tablet 75 mg PO DAILY #90 tabs 06/03/23 omega-3 acid ethyl esters 1 gram 1 cap PO BID #180 caps 06/04/23 capsule testosterone cypionate 200 mg/mL 80 mg (0.4 mL) subcut QWEEK 4 06/28/23 intramuscular oil weeks #2 mL (Depo-Testosterone) tiotropium bromide 1.25 2 puff inhalation DAILY #4 grams 07/20/23 mcg/actuation mist for inhalation (Spiriva Respimat) acetaminophen 500 mg tablet 500 mg PO Q6H PRN fever or pain 07/25/23 (Tylenol Extra Strength) #14 tabs cyclobenzaprine 5 mg tablet 5 mg PO Q8H PRN pain (scale score 07/25/23 7-10) 5 days #14 tabs lidocaine 5 % topical patch 1 patch topical DAILY PRN pain #30 07/25/23 (Lidoderm) ea naproxen 500 mg tablet 500 mg PO BID PRN pain 10 days #20 07/25/23 tabs nystatin 100,000 unit/mL oral 4 ml PO DAILY 10 days #40 mL 08/08/23 suspension fluticasone 250 mcg-salmeterol 50 1 inh inhalation BID 30 days #60 ea 08/13/23 mcg/dose blistr powdr for inhalation (Advair Diskus) amlodipine 5 mg tablet 5 mg PO DAILY #90 tabs 10/01/23 terazosin 5 mg capsule 10 mg (2 x 5 mg) PO BEDTIME 90 10/01/23 days #180 caps albuterol sulfate 90 mcg/actuation 2 puff inhalation Q6H PRN 10/12/23 aerosol inhaler (Ventolin HFA) shortness of breath or wheezing #8.5 grams Allergies Allergy/AdvReac Type Severity Reaction Status Date / Time No Known Allergies Allergy Verified 07/25/23 13:28 [No Known Allergies*] [facility] LAT[facility] Past Medical History Medical History Moderate persistent asthma Clubbing of nails Lumbar degenerative disc disease Right knee pain Primary osteoarthritis, right shoulder Right shoulder pain Cervicalgia Knee osteoarthritis 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 Cognitive needs: No Hearing needs: No Vision needs: No Course Course Course Narrative: This is a rapid medical exam. Deferred additional HPI, ROS, PE to primary provider. 53 yo male with history of alcohol use disorder, HTN, HLD here with complaints of nausea/vomiting, feeling dehydrated, feels like he is withdrawing from alcohol Tachycardic in triage, vomiting in triage Will need labs, EKG, MCALLISTER, COVID screen, CIWA assessment Charge nurse aware and patient will be brought back to room Discharge Plan Discharge Prescriptions: No Action potassium chloride 20 mEq tablet extended release 20 meq PO DAILY 30 Days Qty: 30 3RF omeprazole 40 mg capsule,delayed release(DR/EC) 40 mg PO DAILY Qty: 90 2RF paroxetine HCl 20 mg tablet 20 mg PO DAILY 90 Days Qty: 90 0RF zolpidem [Ambien] 10 mg tablet 10 mg PO BEDTIME PRN (Reason: sleep) Qty: 30 0RF Rx Instructions: BRAND NAME ONLY PLEASE chlorthalidone 25 mg tablet 25 mg PO DAILY Qty: 30 3RF atorvastatin 20 mg tablet 20 mg PO BEDTIME Qty: 90 1RF irbesartan 75 mg tablet 75 mg PO DAILY Qty: 90 1RF omega-3 acid ethyl esters 1 gram capsule 1 cap PO BID Qty: 180 1RF Spiriva Respimat 1.25 mcg/actuation mist 2 puff INHALATION DAILY Qty: 4 1RF nystatin 100,000 unit/mL suspension 4 ml PO DAILY 10 Days Qty: 40 0RF Rx Instructions: swish and spit fluticasone propion-salmeterol [Advair Diskus] 250-50 mcg/dose blister with device 1 inh inhalation BID 30 Days Qty: 60 2RF terazosin 5 mg capsule 10 mg PO BEDTIME 90 Days Qty: 180 1RF amlodipine 5 mg tablet 5 mg PO DAILY Qty: 90 0RF Rx Instructions: Schedule next PCP appt for future refills albuterol sulfate [Ventolin HFA] 90 mcg/actuation HFA aerosol inhaler 2 puff inhalation Q6H PRN (Reason: shortness of breath or wheezing) Qty: 8.5 1RF albuterol sulfate [ProAir HFA] 90 mcg/actuation HFA aerosol inhaler 2 puff INHALATION Q4H PRN (Reason: muscle spasm) acetaminophen [Tylenol Extra Strength] 500 mg tablet 500 mg PO Q6H PRN (Reason: fever or pain) Qty: 14 0RF lidocaine [Lidoderm] 5 % adhesive patch,medicated 1 patch topical DAILY MDD remove after 12 hours PRN (Reason: pain) Qty: 30 0RF Rx Instructions: leave on most painful area for up to 12 hrs naproxen 500 mg tablet 500 mg PO BID PRN (Reason: pain) 10 Days Qty: 20 0RF cyclobenzaprine 5 mg tablet 5 mg PO Q8H PRN (Reason: pain (scale score 7-10)) 5 Days Qty: 14 0RF chlordiazepoxide HCl 25 mg capsule 25 mg PO BID PRN (Reason: alcohol withdrawal) lisinopril 40 mg tablet 40 mg PO DAILY buprenorphine HCl [Belbuca] 900 mcg film 1,800 mcg buccal Q12H azithromycin 250 mg tablet See Rx Instructions PO .COMPLEX Qty: 6 0RF Rx Instructions: take 500 mg today (day 1), then 250 mg for 4 days (days 2-5) PO (DME) BD Insulin Syringe 1 mL 25 gauge x 5/8 syringe See Rx Instructions .MEDSUPPLY Qty: 30 0RF Rx Instructions: As directed testosterone cypionate [Depo-Testosterone] 200 mg/mL oil 80 mg subcut QWEEK 28 Days Qty: 2 5RF oxycodone 5 mg tablet 5 mg PO BID PRN
--- NOTE | 2023-10-19 11:11 | ECG_ITS ---
Test Reason : weakness Blood Pressure : / mmHG Vent. Rate : 143 BPM Atrial Rate : 143 BPM P-R Int : 112 ms QRS Dur : 076 ms QT Int : 356 ms P-R-T Axes : 000 072 039 degrees QTc Int : 549 ms Sinus tachycardia Nonspecific ST and T wave abnormality Abnormal ECG When compared with ECG of 15-SEP-2018 16:33, ST now depressed in Anterolateral leads Referred By: Maryellen Dumont Electronically Signed By:HENRY LORENZO
[2023-10-19] MEDS: 0.9 % Sodium Chloride 1,000 ML 999 ML IV ×2 (11:35→12:42)
[2023-10-19] MEDS: ondansetron HCL 4 MG/2 ML VIAL IVPUSH ×2 (11:35→12:42)
[2023-10-19 11:41] LABS: Basophils Percent Auto 0.2 % (0-2); Eosinophils Percent Auto 0.1 % (0-4); Hematocrit 39.2 % (42.0-52.0); Hemoglobin 14.4 g/dl (14.0-18.0); Imm Gran Abs Auto 0.07 X10*3/uL (0.00-0.03); Imm Gran Pct Auto 0.5 % (0.0-0.4); Lymphocytes Absolute Auto 0.7 X10*3/uL (1.2-4.9); Lymphocytes Percent Auto 5.3 % (20-40); MANUAL DIFF FLAG NO; Mean Corpuscular HGB Conc 36.7 g/dl (31.0-36.0); Mean Corpuscular Hemoglobin 32.8 pg (27.0-33.0); Mean Corpuscular Volume 89.3 fL (80.0-98.0); Mean Platelet Volume 9.7 fL (9.4-12.4); Monocytes Absolute Auto 0.9 X10*3/uL (0.1-1.2); Monocytes Percent Auto 6.7 % (2-11); Neutrophils Absolute Auto 12.1 x10*3/uL (2.0-8.3); Neutrophils Percent Auto 87.2 % (45-73); Platelet Count 256 X10*3/uL (160-400); Red Blood Count 4.39 X10*6/uL (4.60-5.80); Red Cell Distribution Width 12.9 % (11.0-16.0); White Blood Count 13.9 X10*3/uL (4.8-10.8)
[2023-10-19 11:59] LABS: Ethanol 88 mg/dL
--- NOTE | 2023-10-19 12:00 | PC.NURSE ---
patient presenting in alcohol withdrawal, actively vomiting in the room. 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 IV established, labs drawn and sent. medicated per the MAR with zofran, fluids infusing. patient requesting matthwe delmi multiple times, educated on the need to wait at this time due to the nausea/vomiting.
[2023-10-19 12:09] LABS: Alanine Aminotransferase 72 U/L (0-40); Albumin Level 3.8 g/dL (3.5-5.0); Alkaline Phosphatase 144 U/L (39-117); Anion Gap 31 (12-20); Aspartate Amino Transferase 181 U/L (5-37); Bilirubin Direct 0.8 mg/dL (0.0-0.5); Bilirubin Total 2.1 mg/dL (0.0-1.0); Blood Urea Nitrogen 12 mg/dL (9-16); Calcium 8.7 mg/dL (8.4-10.2); Carbon Dioxide 18 mmol/L (22-29); Chloride 92 mmol/L (96-108); Estimated Glomerular Filt Rate 48; Glucose Random 158 mg/dL (60-115); Potassium 2.6 mmol/L (3.3-5.1); Sodium 138 mmol/L (135-145); Total Protein 7.3 g/dL (6.5-8.0)
[2023-10-19 12:11] LABS: Magnesium 0.8 mg/dL (1.6-2.6)
[2023-10-19 12:18] LABS: COVID-19 Test Negative (Negative); IDNOW Serial# 58CA691E
--- NOTE | 2023-10-19 12:30 | ED_ITS ---
HPI - Alcohol General Chief Complaint: ETOH/Substance Use Stated Complaint: throat swelling diff breathing Time Seen by Provider: 10/19/23 11:25 History of Present Illness HPI narrative: Patient is 53 years old with a long history of alcohol abuse. Been drinking less and less the last 2 days because she he has been having extensive nausea vomiting. Had previous hernias in the past. Patient unable to tolerate patient back of throat from repetitive vomiting. Patient had a long history of alcoholism. History of electrolyte disturbance secondary to alcohol use. Related Data Home Medications Medication Instructions Recorded Confirmed albuterol sulfate 90 mcg/actuation 2 puff inhalation Q4H PRN muscle 10/16/22 06/28/23 aerosol inhaler (ProAir HFA) spasm buprenorphine HCl 900 mcg buccal 1,800 mcg buccal Q12H 05/01/23 06/28/23 film (Belbuca) chlordiazepoxide HCl 25 mg capsule 25 mg PO BID PRN alcohol withdrawal 05/01/23 06/28/23 lisinopril 40 mg tablet 40 mg PO DAILY 05/01/23 06/28/23 oxycodone 5 mg tablet 5 mg PO BID PRN 07/02/23 Previous Rx's Medication Instructions Recorded potassium chloride 20 mEq 20 meq PO DAILY 30 days #30 tabs 10/28/22 tablet,extended release omeprazole 40 mg capsule,delayed 40 mg PO DAILY #90 caps 11/04/22 release paroxetine HCl 20 mg tablet 20 mg PO DAILY 90 days #90 tabs 03/09/23 insulin syringe-needle U-100 1 mL #30 ea 03/27/23 25 gauge x 5/8 (BD Insulin Syringe) zolpidem 10 mg tablet (Ambien) 10 mg PO BEDTIME PRN sleep #30 tabs 04/09/23 chlorthalidone 25 mg tablet 25 mg PO DAILY #30 tabs 04/30/23 atorvastatin 20 mg tablet 20 mg PO BEDTIME #90 tabs 05/04/23 azithromycin 250 mg tablet See Rx Instructions PO .COMPLEX #6 05/28/23 tabs irbesartan 75 mg tablet 75 mg PO DAILY #90 tabs 06/03/23 omega-3 acid ethyl esters 1 gram 1 cap PO BID #180 caps 06/04/23 capsule testosterone cypionate 200 mg/mL 80 mg (0.4 mL) subcut QWEEK 4 06/28/23 intramuscular oil weeks #2 mL (Depo-Testosterone) tiotropium bromide 1.25 2 puff inhalation DAILY #4 grams 07/20/23 mcg/actuation mist for inhalation (Spiriva Respimat) acetaminophen 500 mg tablet 500 mg PO Q6H PRN fever or pain 07/25/23 (Tylenol Extra Strength) #14 tabs cyclobenzaprine 5 mg tablet 5 mg PO Q8H PRN pain (scale score 07/25/23 7-10) 5 days #14 tabs lidocaine 5 % topical patch 1 patch topical DAILY PRN pain #30 07/25/23 (Lidoderm) ea naproxen 500 mg tablet 500 mg PO BID PRN pain 10 days #20 07/25/23 tabs nystatin 100,000 unit/mL oral 4 ml PO DAILY 10 days #40 mL 08/08/23 suspension fluticasone 250 mcg-salmeterol 50 1 inh inhalation BID 30 days #60 ea 08/13/23 mcg/dose blistr powdr for inhalation (Advair Diskus) amlodipine 5 mg tablet 5 mg PO DAILY #90 tabs 10/01/23 terazosin 5 mg capsule 10 mg (2 x 5 mg) PO BEDTIME 90 10/01/23 days #180 caps albuterol sulfate 90 mcg/actuation 2 puff inhalation Q6H PRN 10/12/23 aerosol inhaler (Ventolin HFA) shortness of breath or wheezing #8.5 grams Allergies Allergy/AdvReac Type Severity Reaction Status Date / Time No Known Allergies Allergy Verified 07/25/23 13:28 [No Known Allergies*] Review of Systems 2 Review of Systems: Positive nausea vomiting PMFSH Past Medical History Attestation statement: The following information was validated with the patient. Medical History Moderate persistent asthma Clubbing of nails Lumbar degenerative disc disease Right knee pain Primary osteoarthritis, right shoulder Right shoulder pain Cervicalgia Knee osteoarthritis 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 Cognitive needs: No Hearing needs: No Vision needs: No Physical Exam ED Vital Signs: Vital Signs - 24 hr 10/19/23 11:04 10/19/23 14:16 Temperature 96.5 F L Pulse Rate 137 H 133 H Respiratory Rate 17 20 Blood Pressure 135/98 H 135/76 Pulse Oximetry 95 96 Oxygen Delivery Method Room Air Room Air BMI result Body Mass Index 26.3 Sick appearing complaining of weakness generalized malaise nausea vomiting Appearance: Alert. Oriented X3. No acute distress. Eyes: Pupils equal, round and reactive to light. ENT: Pharynx normal. Neck: Normal inspection. Neck supple. No lymph nodes noted. No crepitus CVS: Tachycardic Respiratory: No respiratory distress. Breath sounds normal. No Wheezing. No rales Abdomen: Soft and nontender. No rigidity. No distention. good BS x4 Skin: Skin warm and dry. Normal skin color. Normal skin turgor. Extremities: No lower extremity edema. Neurovascular intact to all extremities. No Lacerations. No Rash Neuro: Oriented X 3. No motor deficit. No sensory deficit. Moving all extermities. No slurred speech Medical Decision Making Medical Decision Making MDM Narrative: Been positive nausea vomiting history of having hernia in the past. Positive long history of alcohol abuse. Patient's magnesium was low. Repleted with IV magnesium. Patient's potassium was low. Repleted with IV potassium. Given Ativan for alcohol withdrawal. CT scan of the abdomen done. My interpretation showed no overt obstruction. No overt hernia. Patient will require admission for further evaluation of alcohol withdrawal. Differential Diagnosis Differential Diagnoses: The differential diagnosis associated with the presentation includes Alcohol withdrawal, small-bowel obstruction, hernia, electrolyte disturbance Admission/Observation Consideration of admission/observation: Escalation of care including admission/observation considered Will need admission Consult Healthcare Provider Management of the patient was discussed with: Hospitalist Lab Data MDM Lab Attestation statement: I reviewed the patient's lab results. 10/19/23 11:36 10/19/23 11:36 Labs: Lab Results 10/19/23 Range/Units 11:36 WBC 13.9 H (4.8-10.8) X10*3/uL RBC 4.39 L (4.60-5.80) X10*6/uL Hgb 14.4 (14.0-18.0) g/dl Hct 39.2 L (42.0-52.0) % MCV 89.3 (80.0-98.0) fL MCH 32.8 (27.0-33.0) pg MCHC 36.7 H (31.0-36.0) g/dl RDW 12.9 (11.0-16.0) % Plt Count 256 D (160-400) X10*3/uL MPV 9.7 (9.4-12.4) fL Immature Gran % (Auto) 0.5 H (0.0-0.4) % Neut % (Auto) 87.2 H (45-73) % Lymph % (Auto) 5.3 L (20-40) % [place] % (Auto) 6.7 (2-11) % Eos % (Auto) 0.1 (0-4) % Baso % (Auto) 0.2 (0-2) % Lymph # (Auto) 0.7 L (1.2-4.9) X10*3/uL [place] # (Auto) 0.9 (0.1-1.2) X10*3/uL Eos # (Auto) 0.0 (0.0-0.4) X10*3/uL Baso # (Auto) 0.0 (0.0-0.2) X10*3/uL Abs Immat Gran (auto) 0.07 H (0.00-0.03) X10*3/uL Absolute Neuts (auto) 12.1 H (2.0-8.3) x10*3/uL Absolute Nucleated RBC 0.000 (0.0-0.012) X10*3/uL Nucleated RBC % (auto) 0.0 (0.0-0.2) /100WBC Sodium 138 (135-145) mmol/L Potassium 2.6 L D (3.3-5.1) mmol/L Chloride 92 L (96-108) mmol/L Carbon Dioxide 18 L (22-29) mmol/L Anion Gap 31 H (12-20) BUN 12 (9-16) mg/dL Creatinine 1.52 H (0.5-1.4) mg/dL Estim Creat Clear Calc 62.0 Estimated GFR 48 Random Glucose 158 H (60-115) mg/dL Calcium 8.7 D (8.4-10.2) mg/dL Magnesium 0.8 L* (1.6-2.6) mg/dL Total Bilirubin 2.1 H (0.0-1.0) mg/dL Direct Bilirubin 0.8 H (0.0-0.5) mg/dL AST 181 H (5-37) U/L ALT 72 H (0-40) U/L Alkaline Phosphatase 144 H (39-117) U/L Total Protein 7.3 (6.5-8.0) g/dL Albumin 3.8 (3.5-5.0) g/dL Ethyl Alcohol 88 mg/dL COVID-19 ([facility]) Negative (Negative) COVID-19 Clin Com See Note Independent Interpretation I performed an independent interpretation of an: EKG (Sinus heart rate is 140 ND QRS QTC within normal limits there is diffuse ST segment depression likely rate related) and CT Scan (No overt obstruction noted) External Record Review External record reviewed: Inpatient record and Office record (Patient's previous GI no reviewed) Chronic Conditions Alcohol abuse Social Determinants Patient?s care significantly limited by Social Determinants of Health including: Alcoholism and drug addiction in family Medications Administered Generic Name Dose Route Start Last Admin Trade Name Freq PRN Reason Stop Dose Admin Potassium Chloride 10 meq in 100 mls @ 100 mls/hr 10/19/23 12:30 10/19/23 12:43 Potassium Chloride/H20 IV 10/19/23 16:29 100 mls/hr Q1H [facility] Administration Discontinued Medications Generic Name Dose Route Start Last Admin Trade Name Freq PRN Reason Stop Dose Admin Sodium Chloride 1,000 mls @ 999 mls/hr 10/19/23 11:11 10/19/23 12:46 Ns IV 10/19/23 12:11 Infused .Q1H1M STA Infusion Magnesium Sulfate 2 gm in 50 mls @ 25 mls/hr 10/19/23 12:19 10/19/23 12:43 Magnesium Sulfate/H2o IV 10/19/23 14:18 25 mls/hr ONCE ONE Administration Sodium Chloride 1,000 mls @ 999 mls/hr 10/19/23 12:30 10/19/23 12:42 Ns IV 10/19/23 13:30 999 mls/hr .Q1H1M [facility]IO Administration Iohexol 100 ml 10/19/23 15:45 10/19/23 15:46 Iohexol 350 Mg/Ml 100 Ml Infus..Btl IV 10/19/23 15:46 85 ml ONCE ONE Administration Lorazepam 2 mg 10/19/23 12:21 10/19/23 12:42 Lorazepam 2 Mg/Ml Vial IVPUSH 10/19/23 12:22 2 mg ONCE ONE Administration Lorazepam 2 mg 10/19/23 13:44 10/19/23 14:15 Lorazepam 2 Mg/Ml Vial IVPUSH 10/19/23 13:45 2 mg ONCE ONE Administration Metoclopramide HCl 10 mg 10/19/23 13:55 10/19/23 14:15 Metoclopramide Hcl 10 Mg/2 Ml Vial IVPUSH 10/19/23 13:56 10 mg ONCE ONE Administration Ondansetron HCl 4 mg 10/19/23 11:11 10/19/23 11:35 Ondansetron Hcl 4 Mg/2 Ml Vial IVPUSH 10/19/23 11:12 4 mg ONCE ONE Administration Ondansetron HCl 4 mg 10/19/23 12:32 10/19/23 12:42 Ondansetron Hcl 4 Mg/2 Ml Vial IVPUSH 10/19/23 12:33 4 mg ONCE ONE Administration Critical Care Time Critical Care Time Critical Care Time: Yes Total Critical Care Time: 40 Attestation: I have personally provided 40 minutes of critical care time exclusive of time spent on separately billable procedures. Time includes review of lab data, radiology results, discussion with consultants, and monitoring for potential decompensation. Interventions were performed as documented above Discharge Plan Discharge Clinical Impression: Alcohol abuse, Alcohol withdrawal Patient Disposition: Admitted As Inpatient Prescriptions: No Action potassium chloride 20 mEq tablet extended release 20 meq PO DAILY 30 Days Qty: 30 3RF omeprazole 40 mg capsule,delayed release(DR/EC) 40 mg PO DAILY Qty: 90 2RF paroxetine HCl 20 mg tablet 20 mg PO DAILY 90 Days Qty: 90 0RF zolpidem [Ambien] 10 mg tablet 10 mg PO BEDTIME PRN (Reason: sleep) Qty: 30 0RF Rx Instructions: BRAND NAME ONLY PLEASE chlorthalidone 25 mg tablet 25 mg PO DAILY Qty: 30 3RF atorvastatin 20 mg tablet 20 mg PO BEDTIME Qty: 90 1RF irbesartan 75 mg tablet 75 mg PO DAILY Qty: 90 1RF omega-3 acid ethyl esters 1 gram capsule 1 cap PO BID Qty: 180 1RF Spiriva Respimat 1.25 mcg/actuation mist 2 puff INHALATION DAILY Qty: 4 1RF nystatin 100,000 unit/mL suspension 4 ml PO DAILY 10 Days Qty: 40 0RF Rx Instructions: swish and spit fluticasone propion-salmeterol [Advair Diskus] 250-50 mcg/dose blister with device 1 inh inhalation BID 30 Days Qty: 60 2RF terazosin 5 mg capsule 10 mg PO BEDTIME 90 Days Qty: 180 1RF amlodipine 5 mg tablet 5 mg PO DAILY Qty: 90 0RF Rx Instructions: Schedule next PCP appt for future refills albuterol sulfate [Ventolin HFA] 90 mcg/actuation HFA aerosol inhaler 2 puff inhalation Q6H PRN (Reason: shortness of breath or wheezing) Qty: 8.5 1RF albuterol sulfate [ProAir HFA] 90 mcg/actuation HFA aerosol inhaler 2 puff INHALATION Q4H PRN (Reason: muscle spasm) acetaminophen [Tylenol Extra Strength] 500 mg tablet 500 mg PO Q6H PRN (Reason: fever or pain) Qty: 14 0RF lidocaine [Lidoderm] 5 % adhesive patch,medicated 1 patch topical DAILY MDD remove after 12 hours PRN (Reason: pain) Qty: 30 0RF Rx Instructions: leave on most painful area for up to 12 hrs naproxen 500 mg tablet 500 mg PO BID PRN (Reason: pain) 10 Days Qty: 20 0RF cyclobenzaprine 5 mg tablet 5 mg PO Q8H PRN (Reason: pain (scale score 7-10)) 5 Days Qty: 14 0RF chlordiazepoxide HCl 25 mg capsule 25 mg PO BID PRN (Reason: alcohol withdrawal) lisinopril 40 mg tablet 40 mg PO DAILY buprenorphine HCl [Belbuca] 900 mcg film 1,800 mcg buccal Q12H azithromycin 250 mg tablet See Rx Instructions PO .COMPLEX Qty: 6 0RF Rx Instructions: take 500 mg today (day 1), then 250 mg for 4 days (days 2-5) PO (DME) BD Insulin Syringe 1 mL 25 gauge x 5/8 syringe See Rx Instructions .MEDSUPPLY Qty: 30 0RF Rx Instructions: As directed testosterone cypionate [Depo-Testosterone] 200 mg/mL oil 80 mg subcut QWEEK 28 Days Qty: 2 5RF oxycodone 5 mg tablet 5 mg PO BID PRN
[2023-10-19] MEDS: LORazepam 2 MG/ML VIAL IVPUSH ×2 (12:42→14:15)
[2023-10-19] MEDS: Magnesium Sulfate/H2O 2 GM/50 ML PIGGYBACK IV (12:43)
[2023-10-19] MEDS: Potassium Chloride/H20 10 MEQ/100 ML PIGGYBACK 100 MEQ IV ×4 (12:43→20:36)
--- NOTE | 2023-10-19 14:14 | PC.NURSE ---
attempted to go to CT scan, unable to tolerate patient began vomiting. provider ordered more medications to attempt again later.
[2023-10-19] MEDS: Metoclopramide HCl 10 MG/2 ML VIAL IVPUSH (14:15)
[2023-10-19 14:16] VITALS: BP 135/76; PULSE 133; RESP 20; O2SAT 96
[2023-10-19] MEDS: iohexoL 350 MG/ML 100 ML INFUS..BTL IV (15:46)
--- NOTE | 2023-10-19 16:08 | PC.NURSE ---
patient appears more comfortable at this time, no vomiting noted. continues to ask for matthew awad, aware we are waiting CT scan results. watching tv at this time, call arredondo within reach
[2023-10-19 16:36] VITALS: BP 160/102; PULSE 134; RESP 18; TEMP 36.7; O2SAT 97
[2023-10-19] MEDS: diazePAM 10 MG/2 ML CARTRIDGE IVPUSH (16:38)
[2023-10-19 17:05] LABS: Lipase 193 U/L (8-78)
--- NOTE | 2023-10-19 17:51 | P.HPHOSP_ITS ---
History of Present Illness Date of Service: 10/19/23 Chief Complaint: nausea/vomiting 53yo M with AUD who lives alone and drinks 12 servings of 100-proof alcohol daily; last drink at 10:00 today. He's had to drink less than usual over the last 2 days due to excessive nausea and vomiting and now complains of a sore throat. Endorses history of alcohol withdrawal though not seizures. He complains of abdominal discomfort but says the throat discomfort is worse. In the ED, he was noted to be tremulous, tachycardic, and hypertensive with multiple electrolyte abnormalities: K 2.6, Mg 0.8, anion gap 31, bicarbonate 18, SCr 1.52 (baseline 0.86). He was given IV fluids, IV potassium and magnesium, and IV lorazepam and diazepam, then started on phenobarbital taper. CT A/P notable for thickening of the wall of the distal esophagus. Review of Systems 2 Review of Systems: Yes all other systems are reviewed and are negative [facility] Medical History Moderate persistent asthma Clubbing of nails Lumbar degenerative disc disease Right knee pain Primary osteoarthritis, right shoulder Right shoulder pain Cervicalgia Knee osteoarthritis Lung disease caused by breathing particles Depression Supraclavicular mass Sleep apnea in adult Pulmonary nodules Hypogonadism in male Nocturia more than twice per night Wrist fracture Posttraumatic stress disorder Anxiety Hypothyroidism Family History Mother Alive and well Breast cancer Father No problems noted. 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 Cognitive needs: No Hearing needs: No Vision needs: No Meds Allergies Allergy/AdvReac Type Severity Reaction Status Date / Time No Known Allergies Allergy Verified 07/25/23 13:28 [No Known Allergies*] Active Medications: Current Medications Acetaminophen (Acetaminophen 325 Mg Tablet) 650 mg PO Q6H PRN PRN Reason: Pain, Mild (Pain Scale 1-3) Albuterol Sulfate (Albuterol Sulfate 90 Mcg 8 Gm Inhaler) 2 puff INHALE Q6H PRN PRN Reason: shortness of breath or wheezing Amlodipine Besylate (Amlodipine Besylate 5 Mg Tablet) 5 mg PO DAILY [facility]; Protocol Buprenorphine HCl (Buprenorphine Hcl 2 Mg Tab.Subl) 2 mg SUBLINGUAL Q12H [facility] Enoxaparin Sodium (Enoxaparin Sodium 40 Mg/0.4 Ml Syringe) 40 mg SUBCUT Q24H [facility] Thiamine HCl 100 mg/ Sodium (Chloride) 101 mls @ 202 mls/hr IV DAILY [facility] Folic Acid 1 mg/ Sodium (Chloride) 50.2 mls @ 100.4 mls/hr IV DAILY [facility] Lactated Ringer's (Lr) 1,000 mls @ 125 mls/hr IVCONT .Q8H [facility] Magnesium Oxide (Magnesium Oxide 400 Mg Tablet) 400 mg PO BIDPC [facility] Multi-Ingred Medicated Throat [place] (Throat [place], Medicated 177 Ml Bottle) 1 spray MUCOUS MEM Q2H PRN PRN Reason: Sore Throat Multivitamins/Vitamin C (Multivitamin Tablet) 1 tab PO DAILY [facility] Non-Formulary Medication (Fluticasone Propion-Salmeterol [Advair Diskus]) 1 inhalation INHALE BID [facility] Non-Formulary Medication (Lidocaine [Lidoderm]) 1 patch TOPICAL DAILY PRN PRN Reason: pain topical Non-Formulary Medication (Terazosin) 10 mg PO BEDTIME [facility] Non-Formulary Medication (Irbesartan) 75 mg PO DAILY [facility] Non-Formulary Medication (Tiotropium [place] [Spiriva Respimat]) 2 puff INHALE DAILY [facility] Ondansetron HCl (Ondansetron Hcl 4 Mg/2 Ml Vial) 4 mg IVPUSH Q4H PRN PRN Reason: Nausea and Vomiting Pantoprazole Sodium (Pantoprazole Sodium 40 Mg/10 Ml Vial) 40 mg IVPUSH DAILY@0630 [facility] Paroxetine HCl (Paroxetine Hcl 20 Mg Tablet) 20 mg PO DAILY [facility] Pharmacy Consult (Consult Rx Etoh Phenob Po Only) 1 each MISCELLANE ONCE PRN; Protocol PRN Reason: Consult order Phenobarbital (Phenobarbital 30 Mg Tablet) 60 mg PO BID [facility]; Protocol Stop: 10/21/23 21:01 Phenobarbital (Phenobarbital 30 Mg Tablet) 30 mg PO BID [facility]; Protocol Stop: 10/23/23 21:01 Phenobarbital (Phenobarbital 30 Mg Tablet) 30 mg PO DAILY [facility]; Protocol Stop: 10/25/23 09:01 Phenobarbital Sodium (Phenobarbital Sodium 130 Mg/Ml Vial Im Q3hx2) 240 mg IM Q3H [facility]; Protocol Stop: 10/19/23 23:01 Potassium Chloride (Potassium Chloride Er 20 Meq Tab.Er.Prt) 40 meq PO ONCE ONE Stop: 10/19/23 17:41 Potassium Chloride (Potassium Chloride Er 20 Meq Tab.Er.Prt) 20 meq PO DAILY [facility] Sodium Chloride (0.9 % Sodium Chloride Flush 3 Ml Syringe) 3 ml IVFLUSH QSHIFT [facility] Home Medications Medication Instructions Recorded Confirmed Last Taken Type oxycodone 5 mg tablet 5 mg PO Q6H PRN Pain 07/02/23 10/19/23 Unknown History buprenorphine HCl 2 mg sublingual 2 mg sublingual Q12H 10/19/23 10/19/23 Unknown History tablet quetiapine 50 mg tablet PO 10/19/23 Unknown History Physical Exam 2 Vital Signs and Narrative: Vital Signs: Last Vital Signs Temp 98.0 F 10/19/23 16:36 Pulse 134 H 10/19/23 16:36 Resp 18 10/19/23 16:36 BP 160/102 H 10/19/23 16:36 Pulse Ox 97 10/19/23 16:36 O2 Del Method Room Air 10/19/23 16:36 BMI result Body Mass Index 26.3 Gen: tremulous HEENT: sclera anicteric, moist mucus membranes Neck: supple Lungs: clear to auscultation bilaterally Heart: regular, tachycardic, no murmurs Abd: soft, mild epigastric tenderness without rebound, non-distended Ext: no edema Skin: warm/well-perfused Neuro: alert and oriented x3, no focal findings Psych: appropriate affect Results Labs 10/19/23 11:36 10/19/23 11:36 Labs: Laboratory Results - last 24 hr 10/19/23 11:36 MCV 89.3 MCH 32.8 MCHC 36.7 H RDW 12.9 Plt Count 256 D MPV 9.7 Immature Gran % (Auto) 0.5 H Neut % (Auto) 87.2 H Lymph % (Auto) 5.3 L [place] % (Auto) 6.7 Eos % (Auto) 0.1 Baso % (Auto) 0.2 Lymph # (Auto) 0.7 L [place] # (Auto) 0.9 Eos # (Auto) 0.0 Baso # (Auto) 0.0 Abs Immat Gran (auto) 0.07 H Absolute Neuts (auto) 12.1 H Absolute Nucleated RBC 0.000 Nucleated RBC % (auto) 0.0 Anion Gap 31 H Estim Creat Clear Calc 62.0 Estimated GFR 48 Random Glucose 158 H Calcium 8.7 D Magnesium 0.8 L* Total Bilirubin 2.1 H Direct Bilirubin 0.8 H AST 181 H ALT 72 H Alkaline Phosphatase 144 H Total Protein 7.3 Albumin 3.8 Lipase 193 H Ethyl Alcohol 88 COVID-19 ([facility]) Negative COVID-19 Clin Com See Note Imaging Radiologist's Impressions: Impressions Abdomen/Pelvis CT 10/19/23 16:08 IMPRESSION: Wall thickening of the distal thoracic esophagus and question small hiatal hernia. Enlarged fatty liver. Mild diverticulosis. Bilateral femoral head AVN. Fleischner guidelines were followed. Assessment and Plan (1) Alcohol withdrawal: Status: Acute Plan 53yo M with severe AUD presenting with EtOH withdrawal along with persistent N/V causing hypokalemia, hypomagnesemia, SENAIT, and alcoholic ketoacidosis. EtOH withdrawal AUD - admit to telemetry, give phenobarbital taper, thiamine/folate/multivitamin, consult Addiction Medicine alcoholic ketoacidosis SENAIT, prerenal - isotonic fluid resuscitation, recheck lytes in AM alcoholic gastritis - IV PPI distal esophageal wall thickening - GI consultation hypoK hypoMg - replete IV/PO, recheck level in AM HTN - amlodipine, irbesartan [formulary equivalent valsartan or losartan] chronic lung disease - controller + rescue inhalers prostatism - terazosin mood disorder - paroxetine chronic pain - buprenorphine, lidocaine VTE ppx - LMWH dispo - eventual home code status - full I anticipate that the patient will stay at least 2 midnights as an inpatient in the hospital due to the above reasons. It is neither reasonable nor safe to care for them in a less acute setting. Quality Stroke Does the patient have a stroke diagnosis?: No VTE Prior VTE?: No VTE Risk Level:: Medical - moderate - high VTE Device Contraindication: N/A - Device Ordered VTE Drug Contraindication: N/A - Med Ordered
--- NOTE | 2023-10-19 17:58 | PHA.MEDREC ---
Addendum entered by Carlin Ruff [facility] 10/19/23 18:09: Went downstairs to speak to patient and notified 10-15 pills on his bed. Asked patient what they were for and he stated they were for him to take tonight . Advised and educated patient not to take his own pills since they need to be verified and got ziplock bag from RN to put pills into. Noticed patient had reusable shopping bag with bottles of meds, many of them. Asked patient if I can go through meds with him and he said No. I dont want my meds seized and I know my rights Went over claim history again. 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 By the looks of his bottles, very possibly taking pills filled 6-8 months ago, therefore poor adherence. Patient is now stating he does not take zolpidem since the generic stuff dont work . This has been replaced by seroquel. When asked about the subutex, patient did endorse BID dosing and I physically saw the tablet on his bed. Patient takes subutex scheduled. Patient also is prescribed oxycodone 5mg (per pdmp MDD 4 tabs)...but patient states he sometimes takes one or two, but never more. Med rec was done with patient, claim history at pharmacy, and [place] med list Original Note: Pharmacy Consult ? Medication Reconciliation Pharmacy has completed the medication reconciliation. spoke with patient to confirm medications. confirmed that he still takes oxycodone as needed and buprenorphine sublingual tabs (verified with PDMP). Reports still using his wixela inhaler even though last claim was from February. He reports that he got his testosterone injection last month despite last claim was in June (prescribed for every week). There was a few medications he was unsure about and used claim history and [facility] list to finish med rec.
--- NOTE | 2023-10-19 18:15 | PC.NURSE ---
patient ambulated to bathroom with one assist with steady gait. provided with urine cup to obtain sample.
[2023-10-19] MEDS: Enoxaparin Sodium 40 MG/0.4 ML SYRINGE SUBCUT (18:39)
[2023-10-19] MEDS: amLODIPine Besylate 5 MG TABLET PO (18:40)
[2023-10-19] MEDS: Multivitamin TABLET 1 TAB PO (18:40)
[2023-10-19] MEDS: PHENobarbitaL sodium 130 MG/ML IM ONCE 320 MG IM (18:40)
[2023-10-19] MEDS: Pantoprazole Sodium 40 MG/10 ML VIAL IVPUSH (18:40)
[2023-10-19] MEDS: Thiamine HCL 100 MG in 0.9 % Sodium Chloride 100 ML 202 MG IV (18:40)
[2023-10-19] MEDS: Lactated Ringers 1,000 ML 125 ML IVCONT (18:41)
[2023-10-19 19:00] LABS: Appearance Urine Cloudy; Color Urine Dark Yellow; Glucose Urine UA Negative (Negative); Leukocyte Esterase Urine Trace (Negative); Nitrite Urine Negative (Negative); PH 5.5 (5.0-9.0); Specific Gravity - Urine >= 1.030 (1.005-1.025); UMIC TRIGGER UACC YES; Urine Blood Negative (Negative); Urine Ketones Trace mg/dL (Negative); Urine Protein 100 (2+) mg/dL (Neg-Trace)
--- NOTE | 2023-10-19 19:17 | PC.NURSE ---
this rn assumed care of pt. pt resting on stretcher comfortably at this time, no acute distress.
[2023-10-19 19:19] LABS: Amphetamine Screen Urine Not Detected (Not Detect); Barbiturates, Urine Not Detected (Not Detect); Benzodiazepines Screen Urine Not Detected (Not Detect); Cannabinoid Screen Urine Not Detected (Not Detect); Cocaine Screen Urine Not Detected (Not Detect); Fentanyl, urine Not Detected (Not Detect); Opiate Screen Urine POSITIVE (Not Detect); Phencyclidine Screen Urine Not Detected (Not Detect)
[2023-10-19 19:20] LABS: Bacteria Urine None Seen (None Seen); Hyaline Casts Urine >20 /LPF (0-2); WBC Urine 0-5 /HPF (0-5)
[2023-10-19 19:38] VITALS: BP 185/119; PULSE 140; RESP 19; O2SAT 97
[2023-10-19] MEDS: Valsartan 40 MG TABLET PO (19:50)
--- NOTE | 2023-10-19 20:01 | PC.NURSE ---
hold 2000 phenobarbitol per Jennifer REYES verbal order due to pt elevated blood pressure. recheck blood pressure and reassess in an hour.
[2023-10-19 20:35] VITALS: BP 133/102; PULSE 134; RESP 16
[2023-10-19] MEDS: Buprenorphine HCL 2 MG TAB.SUBL SUBLINGUAL (20:38)
[2023-10-19] MEDS: Doxazosin Mesylate 2 MG TABLET 8 MG PO (20:39)
[2023-10-19] MEDS: Folic Acid 1 MG in 0.9 % Sodium Chloride 50 ML 100.4 MG IV (20:39)
[2023-10-19] MEDS: PHENobarbitaL sodium 130 MG/ML VIAL IM Q3Hx2 240 MG IM ×2 (20:43→23:28)
--- NOTE | 2023-10-19 20:54 | PC.NURSE ---
provider verbal okay to give pt phenobarb at this time. pt medicated per mar.
--- NOTE | 2023-10-19 21:37 | PC.NURSE ---
pt changed into hospital bed for comfort at this time. pt sitting up comfortably.
[2023-10-19 23:27] VITALS: BP 143/82; PULSE 120
[2023-10-20] VITALS (8 sets, daily range): BP systolic 109–136; BP diastolic 57–92; PULSE 69–124; RESP 13–20; TEMP 36.7–37.1; O2SAT 93–96; BMI 26.2
[2023-10-20] MEDS: Lactated Ringers 1,000 ML 125 ML IVCONT ×3 (01:57→17:00)
--- NOTE | 2023-10-20 06:08 | PC.NURSE ---
pt complaining of shortness of breath, respiratory notified for pt to have PRN albuterol.
[2023-10-20] MEDS: Pantoprazole Sodium 40 MG/10 ML VIAL IVPUSH (06:13)
[2023-10-20] MEDS: Albuterol Sulfate 90 MCG 8 GM INHALER 2 PUFF INHALE (06:14)
[2023-10-20 06:19] LABS: Hematocrit 32.6 % (42.0-52.0); Hemoglobin 11.6 g/dl (14.0-18.0); Mean Corpuscular HGB Conc 35.6 g/dl (31.0-36.0); Mean Corpuscular Hemoglobin 33.6 pg (27.0-33.0); Mean Corpuscular Volume 94.5 fL (80.0-98.0); Mean Platelet Volume 10.6 fL (9.4-12.4); Platelet Count 165 X10*3/uL (160-400); Red Blood Count 3.45 X10*6/uL (4.60-5.80); Red Cell Distribution Width 13.2 % (11.0-16.0); White Blood Count 8.1 X10*3/uL (4.8-10.8)
[2023-10-20 06:39] LABS: Alanine Aminotransferase 48 U/L (0-40); Albumin Level 2.8 g/dL (3.5-5.0); Alkaline Phosphatase 102 U/L (39-117); Anion Gap 16 (12-20); Aspartate Amino Transferase 102 U/L (5-37); Bilirubin Total 2.5 mg/dL (0.0-1.0); Blood Urea Nitrogen 12 mg/dL (9-16); Calcium 7.6 mg/dL (8.4-10.2); Carbon Dioxide 26 mmol/L (22-29); Chloride 95 mmol/L (96-108); Creatinine Clr Calc Pharmacy 92.4; Estimated Glomerular Filt Rate > 60; Glucose Random 98 mg/dL (60-115); Potassium 2.8 mmol/L (3.3-5.1); Sodium 134 mmol/L (135-145); Total Protein 5.4 g/dL (6.5-8.0)
[2023-10-20 06:46] LABS: Magnesium 1.1 mg/dL (1.6-2.6)
--- NOTE | 2023-10-20 06:47 | PC.NURSE ---
this rn took criticl result, Magnesium 1.1. aware at this time.
[2023-10-20] MEDS: Magnesium Oxide 400 MG TABLET PO (07:33)
[2023-10-20] MEDS: Buprenorphine HCL 2 MG TAB.SUBL SUBLINGUAL ×2 (07:33→20:47)
[2023-10-20] MEDS: 0.9 % Sodium Chloride Flush 3 ML SYRINGE IVFLUSH ×2 (07:33→16:55)
--- NOTE | 2023-10-20 07:37 | PC.NURSE ---
patient sitting at the side of the bed, finished his breakfast tray. patient states he feels okay but is fatigued due to vomiting and not eating. patient respirations equal and unlabored, medicated per MAR, has LR running at 125ml/hr, IVs patent. alert and oriented x4, skin pwd
[2023-10-20 08:09] LABS: Immature Retic Fraction 6.4 % (2.3-13.4); Retic HGB Equivalent 40.5 pg (30.0-35.0); Reticulocyte Percent 1.5 % (0.5-1.8); Reticulocytes Absolute 0.053 X10*6/uL (0.026-0.095)
[2023-10-20 08:17] LABS: Iron 155 mcg/dL (45-160); Percent Iron Saturation 86 % (15-50); Total Iron Binding Capacity 181 mcg/dL (228-428); Unsaturated Iron Binding 26 ug/dL
[2023-10-20] MEDS: Magnesium Oxide 400 MG TABLET 800 MG PO ×2 (08:18→16:55)
[2023-10-20] MEDS: Multivitamin TABLET 1 TAB PO (08:19)
[2023-10-20] MEDS: amLODIPine Besylate 5 MG TABLET PO (08:19)
[2023-10-20 08:20] LABS: Lactate Dehydrogenase 236 U/L (118-273)
[2023-10-20] MEDS: PHENobarbitaL 30 MG TABLET 60 MG PO ×2 (08:20→20:47)
[2023-10-20] MEDS: Thiamine HCL 100 MG in 0.9 % Sodium Chloride 100 ML 202 MG IV (08:23)
[2023-10-20] MEDS: Folic Acid 1 MG in 0.9 % Sodium Chloride 50 ML 100.4 MG IV (08:33)
[2023-10-20 08:57] LABS: Ferritin 2227 ng/mL (20-250)
[2023-10-20] MEDS: Potassium Chloride/H20 10 MEQ/100 ML PIGGYBACK 100 MEQ IV ×4 (09:03→13:09)
[2023-10-20] MEDS: Magnesium Sulfate/H2O 2 GM/50 ML PIGGYBACK IV ×2 (09:03→20:47)
[2023-10-20] MEDS: Valsartan 40 MG TABLET PO (10:00)
[2023-10-20] MEDS: PARoxetine HCL 20 MG TABLET PO (10:00)
[2023-10-20] MEDS: Acetaminophen 325 MG TABLET 650 MG PO ×3 (10:08→23:20)
[2023-10-20] MEDS: Potassium Chloride ER 20 MEQ TAB.ER.PRT 40 MEQ PO (10:08)
--- NOTE | 2023-10-20 10:51 | P.PNIM_ITS ---
Subjective Subjective Date of Service: 10/20/23 Interval History: nausea/vomiting/abd pain much improved along with sore throat still slightly tremulous but improved as well Review of Systems Review of Systems: Yes all other systems are reviewed and are negative Physical Exam 2 Vital Signs: Vital Signs: Last Vital Signs Temp 98.0 F 10/20/23 06:13 Pulse 116 H 10/20/23 08:34 Resp 18 10/20/23 08:34 BP 136/92 H 10/20/23 08:34 Pulse Ox 93 10/20/23 08:34 O2 Del Method Room Air 10/20/23 08:34 BMI result Body Mass Index 26.3 Gen: in no acute distress HEENT: sclera anicteric, moist mucus membranes Neck: supple Lungs: clear to auscultation bilaterally Heart: regular, tachycardic, no murmurs Abd: soft, non-tender, non-distended Ext: no edema Skin: warm/well-perfused Neuro: alert and oriented x3, no focal findings Psych: appropriate affect Objective Data Active Medications Acetaminophen (Acetaminophen 325 Mg Tablet) 650 mg PO Q6H PRN PRN Reason: Pain, Mild (Pain Scale 1-3) Last Admin: 10/20/23 10:08 Dose: 650 mg Documented By: RICHARD Albuterol Sulfate (Albuterol Sulfate 90 Mcg 8 Gm Inhaler) 2 puff INHALE Q6H PRN PRN Reason: shortness of breath or wheezing Last Admin: 10/20/23 06:14 Dose: 2 puff Documented By: ARNDA Amlodipine Besylate (Amlodipine Besylate 5 Mg Tablet) 5 mg PO DAILY [facility]; Protocol Last Admin: 10/20/23 08:19 Dose: 5 mg Documented By: RICHARD Buprenorphine HCl (Buprenorphine Hcl 2 Mg Tab.Subl) 2 mg SUBLINGUAL Q12H [facility] Last Admin: 10/20/23 07:33 Dose: 2 mg Documented By: RICHARD Doxazosin Mesylate (Doxazosin Mesylate 2 Mg Tablet) 8 mg PO BEDTIME [facility] Last Admin: 10/19/23 20:39 Dose: 8 mg Documented By: KELIN Enoxaparin Sodium (Enoxaparin Sodium 40 Mg/0.4 Ml Syringe) 40 mg SUBCUT Q24H [facility] Last Admin: 10/19/23 18:39 Dose: 40 mg Documented By: PAULA Fluticasone/Vilanterol (Fluticasone/Vilanterol 100/25 Blst.W.Dev) 1 puff INHALE RDAILY [facility] Last Admin: 10/20/23 08:49 Dose: Not Given Documented By: TAINA Non-Admin Reason: Med Not Available Thiamine HCl 100 mg/ Sodium (Chloride) 101 mls @ 202 mls/hr IV DAILY [facility] Last Infusion: 10/20/23 09:00 Dose: Infused Documented By: RICHARD Folic Acid 1 mg/ Sodium (Chloride) 50.2 mls @ 100.4 mls/hr IV DAILY [facility] Last Infusion: 10/20/23 09:13 Dose: Infused Documented By: RICHARD Lactated Ringer's (Lr) 1,000 mls @ 125 mls/hr IVCONT .Q8H [facility] Last Admin: 10/20/23 10:14 Dose: 125 mls/hr Documented By: RICHARD Potassium Chloride (Potassium Chloride/H20) 10 meq in 100 mls @ 100 mls/hr IV Q1H [facility] Stop: 10/20/23 11:59 Last Admin: 10/20/23 10:10 Dose: 100 mls/hr Documented By: RICHARD Magnesium Sulfate (Magnesium Sulfate/H2o) 2 gm in 50 mls @ 25 mls/hr IV BID [facility] Stop: 10/20/23 22:59 Last Admin: 10/20/23 09:03 Dose: 25 mls/hr Documented By: RICHARD Lidocaine (Lidocaine 4 % Patch Adh..Patch) 1 patch TRANSDERMA DAILY PRN PRN Reason: pain topical Magnesium Oxide (Magnesium Oxide 400 Mg Tablet) 800 mg PO BIDPC [facility] Last Admin: 10/20/23 08:18 Dose: 800 mg Documented By: RICHARD Multi-Ingred Medicated Throat [place] (Throat [place], Medicated 177 Ml Bottle) 1 spray MUCOUS MEM Q2H PRN PRN Reason: Sore Throat Multivitamins/Vitamin C (Multivitamin Tablet) 1 tab PO DAILY [facility] Last Admin: 10/20/23 08:19 Dose: 1 tab Documented By: RICHARD Ondansetron HCl (Ondansetron Hcl 4 Mg/2 Ml Vial) 4 mg IVPUSH Q4H PRN PRN Reason: Nausea and Vomiting Pantoprazole Sodium (Pantoprazole Sodium 40 Mg/10 Ml Vial) 40 mg IVPUSH DAILY@0630 [facility] Last Admin: 10/20/23 06:13 Dose: 40 mg Documented By: KELIN Paroxetine HCl (Paroxetine Hcl 20 Mg Tablet) 20 mg PO DAILY [facility] Last Admin: 10/20/23 10:00 Dose: 20 mg Documented By: RICHARD Pharmacy Consult (Consult Rx Etoh Phenob Po Only) 1 each MISCELLANE ONCE PRN; Protocol PRN Reason: Consult order Phenobarbital (Phenobarbital 30 Mg Tablet) 60 mg PO BID [facility]; Protocol Stop: 10/21/23 21:01 Last Admin: 10/20/23 08:20 Dose: 60 mg Documented By: RICHARD Phenobarbital (Phenobarbital 30 Mg Tablet) 30 mg PO BID [facility]; Protocol Stop: 10/23/23 21:01 Phenobarbital (Phenobarbital 30 Mg Tablet) 30 mg PO DAILY [facility]; Protocol Stop: 10/25/23 09:01 Potassium Chloride (Potassium Chloride Er 20 Meq Tab.Er.Prt) 40 meq PO DAILY [facility] Last Admin: 10/20/23 10:08 Dose: 40 meq Documented By: RICHARD Sodium Chloride (0.9 % Sodium Chloride Flush 3 Ml Syringe) 3 ml IVFLUSH QSHIFT [facility] Last Admin: 10/20/23 07:33 Dose: 3 ml Documented By: RICHARD Tiotropium [place] (Tiotropium [place] 2.5 Mcg 1 Puff/2.5 Mcg Mist.Inhal) 1 puff INHALE RDAILY [facility] Last Admin: 10/20/23 08:49 Dose: Not Given Documented By: TAINA Non-Admin Reason: Med Not Available Valsartan (Valsartan 40 Mg Tablet) 40 mg PO DAILY [facility] Last Admin: 10/20/23 10:00 Dose: 40 mg Documented By: RICHARD Labs 10/20/23 05:36 10/20/23 05:36 Labs: Laboratory Results - last 24 hr 10/19/23 10/19/23 10/20/23 11:36 18:51 05:36 MCV 89.3 94.5 D MCH 32.8 33.6 H MCHC 36.7 H 35.6 RDW 12.9 13.2 Plt Count 256 D 165 D MPV 9.7 10.6 Immature Gran % (Auto) 0.5 H Neut % (Auto) 87.2 H Lymph % (Auto) 5.3 L [place] % (Auto) 6.7 Eos % (Auto) 0.1 Baso % (Auto) 0.2 Lymph # (Auto) 0.7 L [place] # (Auto) 0.9 Eos # (Auto) 0.0 Baso # (Auto) 0.0 Abs Immat Gran (auto) 0.07 H Absolute Neuts (auto) 12.1 H Absolute Nucleated RBC 0.000 0.000 Nucleated RBC % (auto) 0.0 0.0 Absolute Retic 0.053 Percent Retic 1.5 Immature Retic Fraction 6.4 Retic Hgb Equivalent 40.5 H Anion Gap 31 H 16 Estim Creat Clear Calc 62.0 92.4 Estimated GFR 48 > 60 Random Glucose 158 H 98 Calcium 8.7 D 7.6 L D Magnesium 0.8 L* 1.1 L* Iron 155 TIBC 181 L % Saturation 86 H Unsat Iron Binding 26 Ferritin 2227 H Total Bilirubin 2.1 H 2.5 H Direct Bilirubin 0.8 H AST 181 H 102 H ALT 72 H 48 H Alkaline Phosphatase 144 H 102 Lactate Dehydrogenase 236 Total Protein 7.3 5.4 L Albumin 3.8 2.8 L Lipase 193 H Urine Color Dark Yellow Urine Appearance Cloudy Urine pH 5.5 Ur Specific [place] >= 1.030 H Urine Protein 100 (2+) H Urine Glucose (UA) Negative Urine Ketones Trace Urine Blood Negative Urine Nitrite Negative Ur Leukocyte Esterase Trace H Urine RBC 3-5 H Urine WBC 0-5 Ur Squamous Epith Cells 3-5 Urine Bacteria None Seen Hyaline Casts >20 Urine Opiates Screen POSITIVE H Urine Fentanyl Screen Not Detected Ur Barbiturates Screen Not Detected Ur Phencyclidine Scrn Not Detected Ur Amphetamines Screen Not Detected U Benzodiazepines Scrn Not Detected Urine Cocaine Screen Not Detected U Marijuana (THC) Screen Not Detected Ethyl Alcohol 88 COVID-19 ([facility]) Negative COVID-19 Clin Com See Note Assessment and Plan (1) Alcohol withdrawal: Status: Acute Plan d2 53yo M with severe AUD presenting with EtOH withdrawal along with persistent N/V causing hypokalemia, hypomagnesemia, SENAIT, and alcoholic ketoacidosis. EtOH withdrawal AUD - d2 of phenobarbital taper, thiamine/folate/multivitamin, Addiction Medicine consult pending normocytic anemia - blood loss vs dilutional; check iron studies/B12+FA/FOBT alcoholic ketoacidosis SENAIT, prerenal - resolved with isotonic fluid resuscitation hypoK hypoMg - needs further IV/PO repletion, recheck levels in AM alcoholic gastritis - IV PPI distal esophageal wall thickening - GI consult pending HTN - amlodipine, valsartan chronic lung disease - controller + rescue inhalers prostatism - doxazosin mood disorder - paroxetine chronic pain - buprenorphine, lidocaine VTE ppx - LMWH dispo - eventual home In my clinical judgment, the patient requires continued inpatient hospitalization for the following reasons: electrlolyte disturbances, EtOH withdrawal Total time managing care of this patient today: 35 minutes. Quality Stroke Does the patient have a stroke diagnosis?: No VTE Prior VTE?: No VTE Risk Level:: Medical - moderate - high VTE Device Contraindication: N/A - Device Ordered VTE Drug Contraindication: N/A - Med Ordered
--- NOTE | 2023-10-20 11:25 | MHC.SHP ---
Pre-Procedural Eval Section A Date of Service: 10/20/23 The patient is an INPATIENT: Yes Changes since office visit: No Cold of Flu in the past 2 weeks, No New Medical Problems, No Changes in Medication and No Patient answered all questions The History & Physical has been completed within 30 days and I have reviewed it.: Yes Section B Chief Complaint: ETOH wd Allergies: Allergies Allergy/AdvReac Type Severity Reaction Status Date / Time No Known Allergies Allergy Verified 07/25/23 13:28 [No Known Allergies*] Plan I have reviewed the history and physical and performed a pertinent physical examination on my patient. No changes have occurred unless specified. Time Spent With Patient Time: Total time managing care of this patient today ____ minutes.
--- NOTE | 2023-10-20 11:25 | PM.EVENT ---
Event Note Date of Service: 10/20/23 Event Note: GI EGD scheduled 10/[address] abnormalities. Time Spent With Patient Time: Total time managing care of this patient today ____ minutes.
--- NOTE | 2023-10-20 11:54 | MHC.CM.PN ---
Pt lives alone at home, self-care. Pt has his own transportation. HCP declined. PCP: Dr. Jose Owen
--- NOTE | 2023-10-20 12:10 | CONS_ITS ---
DATE OF SERVICE: 10/20/2023 REFERRING PHYSICIAN: Gay Odom MD REASON FOR CONSULTATION: Abnormal CT scan of the esophagus. HISTORY OF PRESENT ILLNESS: The patient is a pleasant 53-year-old man, who was admitted to the hospital after presenting to the emergency department on October 19 with complaints of alcohol abuse, nausea, and vomiting. He has a history of alcohol abuse and had been abstinent for several days, but restarted drinking prior to this admission. This became associated with nausea and vomiting and he presented to the emergency room. He does describe flecks of red material in his vomitus and occasional flecks of red material in his stools. He has previously undergone colonoscopy in 2019 with removal of a tubular adenoma and has been followed by [facility] for reflux disease and elevated liver function tests. In the emergency department, he was evaluated with laboratory studies, which showed liver function test elevations in a pattern consistent with alcohol. A blood alcohol level on October 19 was elevated at 88. He is currently being treated for alcohol withdrawal. CT imaging was subsequently obtained, which is reviewed. This is interpreted as showing wall thickening of the distal thoracic esophagus with a question of a small hiatal hernia. Fatty liver was noted. The patient denies any dysphagia or melena. PAST MEDICAL HISTORY: 1. Alcohol abuse. 2. Colon polyps. 3. Asthma. 4. Degenerative disk disease/osteoarthritis. 5. Depression. 6. Sleep apnea. 7. PTSD/anxiety. 8. Hypothyroidism. CURRENT MEDICATIONS: Current medication list is reviewed in the chart. ALLERGIES: THERE ARE NONE REPORTED. PAST SURGICAL HISTORY: Inguinal and umbilical hernia repair. REVIEW OF SYSTEMS: SKIN: No pruritus. HEENT: Negative. CARDIOPULMONARY: He denies shortness of breath or chest pain. GASTROINTESTINAL: As above. GENITOURINARY: Negative. NEUROPSYCHIATRIC: Negative. PHYSICAL EXAMINATION: GENERAL: Shows a pleasant male, sitting comfortably in bed. VITAL SIGNS: Reviewed in electronic medical record. He is tachycardic. SKIN: Anicteric. HEENT: Shows no scleral icterus. NECK: Without lymphadenopathy or thyromegaly. LUNGS: Clear. HEART: Shows a regular rate and rhythm. Tachycardia. ABDOMEN: Soft without focal mass or tenderness. EXTREMITIES: Without edema. He is mildly tremulous. IMPRESSION: 1. Alcohol abuse. 2. Abnormal CT scan of the esophagus. PLAN: I discussed with him the need to avoid alcohol due to liver complications. He does appear to have mild alcoholic hepatitis based on his laboratory studies, but based on the results, I do not recommend treatment with prednisone at this time. His esophageal thickening likely represents esophagitis based on his alcohol intake and recent vomiting. I have discussed endoscopy with him for further evaluation to rule out other sources for esophageal thickening including malignancy and [place] esophagus. He understands risks and benefits and agrees to proceed. This will be arranged for tomorrow with Dr. Mohr. Thank you for asking me to see him. I will follow him in the hospital with you. MD SAEED Horvath/LAITH / [phone] MTDJose
--- NOTE | 2023-10-20 12:49 | MHC.RECOVRN ---
device test engineer met with patient at bedside in ED-11 for Addiction Medicine Consult for Alcohol Use. Patient sitting up in bed, conversing. A+Ox3 but can be forgetful (states he has a TBI). When asked how he is feeling, he states a hell of a lot better today than I did yesterday. Reports nausea, intermittent headache, and mild hand tremors. Denies other s/s of withdrawal. Received Phenobarbital 60mg PO around 8am- states he is tolerating it. RN questioned him about the Buprenophine- denies a history of substance use. States I dunno I think they gave that to me to prevent me from getting addicted to the Oxycodone or something. Reports chronic joint pain is treated w/PRN Oxycodone. Patient admits to drinking 12 nips of vodka with soda or juice chaser per day. Last drink 10/19 around 10am. He reports being a functioning alcoholic for 17 years- usually only drinking at night and working during the day. 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 Ultimately, his goal is to completely abstain from alcohol. He would like to fully detox here, then find outpatient treatment programs. Declines ATS. He wants to recover for his health and his 11 year old son. Resources and educational material provided. Discussed w/LUCIANO Christopher.
--- NOTE | 2023-10-20 16:50 | PC.NURSE ---
Patient arrived with a large amount of home medications in personal bag. Able to retrieve them with patient's permission. Sealed in envelope and given to pharmacy at this time.
[2023-10-20] MEDS: ondansetron HCL 4 MG/2 ML VIAL IVPUSH (16:55)
[2023-10-20] MEDS: Lidocaine 4 % Patch ADH..PATCH 1 PATCH TRANSDERMA (16:55)
[2023-10-20] MEDS: Enoxaparin Sodium 40 MG/0.4 ML SYRINGE SUBCUT (16:56)
[2023-10-20] MEDS: Doxazosin Mesylate 2 MG TABLET 8 MG PO (20:46)
[2023-10-20] MEDS: oxyCODONE HCl Immed Release 5 MG TABLET PO (23:20)
[2023-10-21] VITALS (9 sets, daily range): BP systolic 112–167; BP diastolic 70–106; PULSE 76–114; RESP 15–20; TEMP 36.1–36.9; O2SAT 93–97
[2023-10-21] MEDS: Lactated Ringers 1,000 ML 125 ML IVCONT ×4 (01:57→23:52)
[2023-10-21] MEDS: Pantoprazole Sodium 40 MG/10 ML VIAL IVPUSH (06:13)
--- NOTE | 2023-10-21 06:35 | PC.NURSE ---
This RN assu,ed care at approximately 1930. Patient alert and oriented X4, Patient does have moments of forgetfullness and will ask the dame questions over. This typewriter ribbon winder spoke with patient several times, educating pt on hospitalization and medications as well as preparation for procedure. Patient asking questions about being able to leave and is under the impression this is an outpt program. This typewriter ribbon winder explained to patient his stay and how this was a medical floor and the importance of him staying for care. Pt understood but feels he misunderstood when initially agreeing thinking he would be able to leave and come back. Pt NPO since midnight in preparation for endoscopy. Pt has been dressed in his clothes prior tho this RNs arrival and this typewriter ribbon winder informed pt he would need to change into hospital attire and pt was very against it but said he would put it on for the procedure. Pt has been ambulating in the room, using the bathroom and the urinal. Pt reports pain (headache and backache) which was treated with PRN medication and warm packs.(See MAR)
[2023-10-21 07:37] LABS: Prothrombin Time 12.2 SEC (11.1-13.3)
[2023-10-21 07:45] LABS: Hematocrit 31.2 % (42.0-52.0); Hemoglobin 10.7 g/dl (14.0-18.0); Mean Corpuscular HGB Conc 34.3 g/dl (31.0-36.0); Mean Corpuscular Hemoglobin 32.9 pg (27.0-33.0); Mean Platelet Volume 10.7 fL (9.4-12.4); Platelet Count 133 X10*3/uL (160-400); Red Blood Count 3.25 X10*6/uL (4.60-5.80); Red Cell Distribution Width 13.2 % (11.0-16.0); White Blood Count 4.9 X10*3/uL (4.8-10.8)
[2023-10-21 07:54] LABS: Anion Gap 12 (12-20)
[2023-10-21 08:03] LABS: Alanine Aminotransferase 41 U/L (0-40); Albumin Level 2.9 g/dL (3.5-5.0); Alkaline Phosphatase 97 U/L (39-117); Aspartate Amino Transferase 78 U/L (5-37); Bilirubin Total 0.8 mg/dL (0.0-1.0); Blood Urea Nitrogen 11 mg/dL (9-16); Carbon Dioxide 30 mmol/L (22-29); Chloride 99 mmol/L (96-108); Estimated Glomerular Filt Rate > 60; Glucose Random 85 mg/dL (60-115); Magnesium 1.6 mg/dL (1.6-2.6); Potassium 3.5 mmol/L (3.3-5.1); Sodium 137 mmol/L (135-145); Total Protein 5.5 g/dL (6.5-8.0)
[2023-10-21] MEDS: Tiotropium Bromide 2.5 mcg 1 PUFF/2.5 MCG MIST.INHAL INHALE (08:11)
[2023-10-21] MEDS: Fluticasone/Vilanterol 100/25 BLST.W.DEV 1 PUFF INHALE (08:11)
[2023-10-21] MEDS: Albuterol Sulfate 90 MCG 8 GM INHALER 2 PUFF INHALE (08:24)
[2023-10-21 08:26] LABS: Folate 8.2 ng/mL (> or = 4.0); Vitamin B12 804 pg/mL (200-900)
[2023-10-21] MEDS: Multivitamin TABLET 1 TAB PO (08:27)
[2023-10-21] MEDS: Valsartan 40 MG TABLET PO (08:27)
[2023-10-21] MEDS: PARoxetine HCL 20 MG TABLET PO (08:27)
[2023-10-21] MEDS: PHENobarbitaL 30 MG TABLET 60 MG PO ×2 (08:27→20:21)
[2023-10-21] MEDS: amLODIPine Besylate 5 MG TABLET PO (08:28)
[2023-10-21] MEDS: Magnesium Oxide 400 MG TABLET 800 MG PO ×2 (08:28→18:46)
[2023-10-21] MEDS: Buprenorphine HCL 2 MG TAB.SUBL SUBLINGUAL ×2 (08:28→18:46)
[2023-10-21] MEDS: Thiamine HCL 100 MG in 0.9 % Sodium Chloride 100 ML 202 MG IV (08:28)
[2023-10-21] MEDS: Potassium Chloride ER 20 MEQ TAB.ER.PRT 40 MEQ PO (08:28)
--- NOTE | 2023-10-21 09:11 | HO.ANESPROP2 ---
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 Daughter Alive and well Daughter Alive and well Brother Alive and well Family history of problems with anesthesia: No Surgical History Surgical History History of colonoscopy History of inguinal hernia repair History of Problems with Anesthesia: No Social History Social History Household Members: None Housing: Apartment Do you presently have visiting nurse or other home services: No Alcohol intake: current Alcohol intake frequency: 3 or more drinks per day Alcohol type: hard liquor Patient Tobacco Use Status: Current everyday Tobacco user Tobacco use type: Smokeless Tobacco Cigarette Packs Per Day: 1 Cigarettes Per Day: 20.0 Years Smoked: quit cigaretters 8 years ago, once/month cigars & chewing tobacco e-Cigarette/Vaping Use: Currently Using Second Hand Smoke Exposure: No Substance Use Type: Opiates service: Yes Current occupational status: employed 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 Cognitive needs: No Hearing needs: No Vision needs: No Meds Allergies Allergy/AdvReac Type Severity Reaction Status Date / Time No Known Allergies Allergy Verified 07/25/23 13:28 [No Known Allergies*] Home Medications Medication Instructions Recorded Confirmed Last Taken Type oxycodone 5 mg tablet 5 mg PO BID PRN Pain 07/02/23 10/19/23 Unknown History buprenorphine HCl 2 mg sublingual 2 mg sublingual Q12H 10/19/23 10/19/23 Unknown History tablet quetiapine 50 mg tablet 50 mg PO BEDTIME PRN Sleep 10/19/23 10/19/23 Unknown History Exam Airway Heart: rrr Lungs: cta Assessment and Plan Assessment Anesthesia Assessment: Anesthesia Plan Discussed, Smoking Cess. Discussed and Chart Reviewed Final Anesthetic Review Family History of Problems with Anesthesia: No History of Problems with Anesthesia: No NPO: Yes ASA Class: III and IV Final Preanesthetic Review: No Changes in Pt Med Stat (took albuterol this AM ), Meds/Allgs Chart Reviewed, Consent Obtained/Reviewed and Anes Risks/Benef Reviewed Patient Risk: Intermediate Procedure Risk: Intermediate Anesthetic Plan Anesthetic Plan: MAC: Disposition: Standard PACU Documented by User: Nikia Pinto MD [facility] Active Problems Active Problems: All Active Problems (Updated 10/19/23 @ 16:16 by Lata Tenorio MD) Alcohol withdrawal (Acute) Alcohol abuse (Acute) Upper respiratory tract infection (Acute) Alcohol abuse (Acute) Chronic pain (Acute) Tachycardia (Acute) Ecchymoses, spontaneous (Acute) Biceps rupture, distal (Acute) Primary osteoarthritis, right shoulder (Acute) Right shoulder pain (Acute) Bilateral hand numbness (Acute) Right hand pain (Acute) Alcoholism (Acute) Weight loss (Acute) Stress (Acute) Tachycardia (Acute) Nausea (Acute) Abdominal discomfort (Acute) Hypokalemia (Acute) Acute sinus infection (Acute) Right knee pain (Acute) Primary osteoarthritis, right shoulder (Acute) Right shoulder pain (Acute) Cervicalgia (Acute) Knee osteoarthritis (Acute) Dyslipidemia (Acute) Elevated serum creatinine (Acute) SHAWANDA (obstructive sleep apnea) (Acute) Right hip pain (Acute) AVN (avascular necrosis of bone) (Acute) Right hand pain (Acute) Physical exam (Acute) Bilateral lower extremity edema (Acute) Abdominal pain (Acute) Abdominal distention (Acute) Acute sinusitis (Acute) Bilateral hip pain (Acute) PTSD (post-traumatic stress disorder) (Acute) Fall (Acute) Upper back pain (Acute) Neck injury (Acute) Sinusitis (Acute) At risk for prolonged QT interval syndrome (Acute) Nocturia more than twice per night (Acute) Hypogonadism in male (Acute) Abdominal bloating (Acute) High triglycerides (Acute) Gastroesophageal reflux disease (Acute) Supraclavicular mass (Acute) Patellofemoral pain syndrome of both knees (Acute) Sciatica (Acute) Degenerative arthritis of knee, bilateral (Acute) Dyslipidemia (Acute) Elevated liver enzymes (Acute) Hypokalemia (Acute) Lesion of neck (Acute) HTN (hypertension) (Acute) BPH w urinary obs/LUTS (Acute) History of colon polyps (Acute) Elevated transaminase level (Acute) Traumatic brain injury (Acute) PTSD (post-traumatic stress disorder) (Acute) Pain in left knee (Acute) Pain in right knee (Acute) Arthritis, lumbar spine (Acute) Arthritis of left shoulder region (Acute) Arthritis of right shoulder region (Acute) Arthropathy of cervical spine (Acute) Past Medical History Medical History Moderate persistent asthma Clubbing of nails Lumbar degenerative disc disease Right knee pain Primary osteoarthritis, right shoulder Right shoulder pain Cervicalgia Knee osteoarthritis 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 Daughter Alive and well Daughter Alive and well Brother Alive and well Surgical History Surgical History History of colonoscopy History of inguinal hernia repair Social History Social History Household Members: None Housing: Apartment Do you presently have visiting nurse or other home services: No Alcohol intake: current Alcohol intake frequency: 3 or more drinks per day Alcohol type: hard liquor Patient Tobacco Use Status: Current everyday Tobacco user Tobacco use type: Smokeless Tobacco Cigarette Packs Per Day: 1 Cigarettes Per Day: 20.0 Years Smoked: quit cigaretters 8 years ago, once/month cigars & chewing tobacco e-Cigarette/Vaping Use: Currently Using Second Hand Smoke Exposure: No Substance Use Type: Opiates service: Yes Current occupational status: employed 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 Cognitive needs: No Hearing needs: No Vision needs: No Meds Allergies Allergy/AdvReac Type Severity Reaction Status Date / Time No Known Allergies Allergy Verified 07/25/23 13:28 [No Known Allergies*] Active Medications: Current Medications Acetaminophen (Acetaminophen 325 Mg Tablet) 650 mg PO Q6H PRN PRN Reason: Pain, Mild (Pain Scale 1-3) Last Admin: 10/20/23 23:20 Dose: 650 mg Albuterol Sulfate (Albuterol Sulfate 90 Mcg 8 Gm Inhaler) 2 puff INHALE Q6H PRN PRN Reason: shortness of breath or wheezing Last Admin: 10/21/23 08:24 Dose: 2 puff Amlodipine Besylate (Amlodipine Besylate 5 Mg Tablet) 5 mg PO DAILY [facility]; Protocol Last Admin: 10/21/23 08:28 Dose: 5 mg Buprenorphine HCl (Buprenorphine Hcl 2 Mg Tab.Subl) 2 mg SUBLINGUAL Q12H [facility] Last Admin: 10/21/23 08:28 Dose: 2 mg Doxazosin Mesylate (Doxazosin Mesylate 2 Mg Tablet) 8 mg PO BEDTIME [facility] Last Admin: 10/20/23 20:46 Dose: 8 mg Enoxaparin Sodium (Enoxaparin Sodium 40 Mg/0.4 Ml Syringe) 40 mg SUBCUT Q24H [facility] Last Admin: 10/20/23 16:56 Dose: 40 mg Fluticasone/Vilanterol (Fluticasone/Vilanterol 100/25 Blst.W.Dev) 1 puff INHALE RDAILY [facility] Last Admin: 10/21/23 08:11 Dose: 1 puff Thiamine HCl 100 mg/ Sodium (Chloride) 101 mls @ 202 mls/hr IV DAILY [facility] Last Admin: 10/21/23 08:28 Dose: 202 mls/hr Folic Acid 1 mg/ Sodium (Chloride) 50.2 mls @ 100.4 mls/hr IV DAILY [facility] Last Infusion: 10/20/23 09:13 Dose: Infused Lactated Ringer's (Lr) 1,000 mls @ 125 mls/hr IVCONT .Q8H [facility] Last Admin: 10/21/23 01:57 Dose: 125 mls/hr Lidocaine (Lidocaine 4 % Patch Adh..Patch) 1 patch TRANSDERMA DAILY PRN PRN Reason: pain topical Last Admin: 10/20/23 16:55 Dose: 1 patch Magnesium Oxide (Magnesium Oxide 400 Mg Tablet) 800 mg PO BIDPC [facility] Last Admin: 10/21/23 08:28 Dose: 800 mg Multi-Ingred Medicated Throat [place] (Throat [place], Medicated 177 Ml Bottle) 1 spray MUCOUS MEM Q2H PRN PRN Reason: Sore Throat Multivitamins/Vitamin C (Multivitamin Tablet) 1 tab PO DAILY [facility] Last Admin: 10/21/23 08:27 Dose: 1 tab Ondansetron HCl (Ondansetron Hcl 4 Mg/2 Ml Vial) 4 mg IVPUSH Q4H PRN PRN Reason: Nausea and Vomiting Last Admin: 10/20/23 16:55 Dose: 4 mg Oxycodone HCl (Oxycodone Hcl Immed Release 5 Mg Tablet) 5 mg PO BID PRN PRN Reason: svere pain Last Admin: 10/20/23 23:20 Dose: 5 mg Pantoprazole Sodium (Pantoprazole Sodium 40 Mg/10 Ml Vial) 40 mg IVPUSH DAILY@0630 [facility] Last Admin: 10/21/23 06:13 Dose: 40 mg Paroxetine HCl (Paroxetine Hcl 20 Mg Tablet) 20 mg PO DAILY [facility] Last Admin: 10/21/23 08:27 Dose: 20 mg Pharmacy Consult (Consult Rx Etoh Phenob Po Only) 1 each MISCELLANE ONCE PRN; Protocol PRN Reason: Consult order Phenobarbital (Phenobarbital 30 Mg Tablet) 60 mg PO BID [facility]; Protocol Stop: 10/21/23 21:01 Last Admin: 10/21/23 08:27 Dose: 60 mg Phenobarbital (Phenobarbital 30 Mg Tablet) 30 mg PO BID [facility]; Protocol Stop: 10/23/23 21:01 Phenobarbital (Phenobarbital 30 Mg Tablet) 30 mg PO DAILY [facility]; Protocol Stop: 10/25/23 09:01 Potassium Chloride (Potassium Chloride Er 20 Meq Tab.Er.Prt) 40 meq PO DAILY [facility] Last Admin: 10/21/23 08:28 Dose: 40 meq Sodium Chloride (0.9 % Sodium Chloride Flush 3 Ml Syringe) 3 ml IVFLUSH QSHIFT [facility] Last Admin: 10/20/23 16:55 Dose: 3 ml Tiotropium [place] (Tiotropium [place] 2.5 Mcg 1 Puff/2.5 Mcg Mist.Inhal) 1 puff INHALE RDAILY [facility] Last Admin: 10/21/23 08:11 Dose: 1 puff Valsartan (Valsartan 40 Mg Tablet) 40 mg PO DAILY [facility] Last Admin: 10/21/23 08:27 Dose: 40 mg Home Medications Medication Instructions Recorded Confirmed Last Taken Type oxycodone 5 mg tablet 5 mg PO BID PRN Pain 07/02/23 10/19/23 Unknown History buprenorphine HCl 2 mg sublingual 2 mg sublingual Q12H 10/19/23 10/19/23 Unknown History tablet quetiapine 50 mg tablet 50 mg PO BEDTIME PRN Sleep 10/19/23 10/19/23 Unknown History Exam Height,Weight and Vital Signs: Height 6 ft 1 in Weight 90 kg Last Vital Signs Temp 97.2 F 10/21/23 08:00 Pulse 102 H 10/21/23 08:11 Resp 20 10/21/23 08:11 BP 128/88 10/21/23 08:00 Pulse Ox 95 10/21/23 08:00 O2 Del Method Room Air 10/21/23 08:00 Pertinent Lab Results Pertinent Lab Results: Laboratory Tests 10/19/23 10/19/23 10/20/23 11:36 18:51 05:36 WBC 13.9 H 8.1 RBC 4.39 L 3.45 L D Hgb 14.4 11.6 L Hct 39.2 L 32.6 L MCV 89.3 94.5 D MCH 32.8 33.6 H MCHC 36.7 H 35.6 RDW 12.9 13.2 Plt Count 256 D 165 D MPV 9.7 10.6 Immature Gran % (Auto) 0.5 H Neut % (Auto) 87.2 H Lymph % (Auto) 5.3 L [place] % (Auto) 6.7 Eos % (Auto) 0.1 Baso % (Auto) 0.2 Lymph # (Auto) 0.7 L [place] # (Auto) 0.9 Eos # (Auto) 0.0 Baso # (Auto) 0.0 Abs Immat Gran (auto) 0.07 H Absolute Neuts (auto) 12.1 H Absolute Nucleated RBC 0.000 0.000 Nucleated RBC % (auto) 0.0 0.0 Absolute Retic 0.053 Percent Retic 1.5 Immature Retic Fraction 6.4 Retic Hgb Equivalent 40.5 H PT INR Sodium 138 134 L Potassium 2.6 L D 2.8 L Chloride 92 L 95 L Carbon Dioxide 18 L 26 Anion Gap 31 H 16 BUN 12 12 Creatinine 1.52 H 1.02 Estim Creat Clear Calc 62.0 92.4 Estimated GFR 48 > 60 Random Glucose 158 H 98 Calcium 8.7 D 7.6 L D Magnesium 0.8 L* 1.1 L* Iron 155 TIBC 181 L % Saturation 86 H Unsat Iron Binding 26 Ferritin 2227 H Total Bilirubin 2.1 H 2.5 H Direct Bilirubin 0.8 H AST 181 H 102 H ALT 72 H 48 H Alkaline Phosphatase 144 H 102 Lactate Dehydrogenase 236 Total Protein 7.3 5.4 L Albumin 3.8 2.8 L Lipase 193 H Vitamin B12 Folate Urine Color Dark Yellow Urine Appearance Cloudy Urine pH 5.5 Ur Specific [place] >= 1.030 H Urine Protein 100 (2+) H Urine Glucose (UA) Negative Urine Ketones Trace Urine Blood Negative Urine Nitrite Negative Ur Leukocyte Esterase Trace H Urine RBC 3-5 H Urine WBC 0-5 Ur Squamous Epith Cells 3-5 Urine Bacteria None Seen Hyaline Casts >20 Urine Opiates Screen POSITIVE H Urine Fentanyl Screen Not Detected Ur Barbiturates Screen Not Detected Ur Phencyclidine Scrn Not Detected Ur Amphetamines Screen Not Detected U Benzodiazepines Scrn Not Detected Urine Cocaine Screen Not Detected U Marijuana (THC) Screen Not Detected Ethyl Alcohol 88 COVID-19 ([facility]) Negative COVID-19 Clin Com See Note 10/21/23 07:00 WBC 4.9 RBC 3.25 L Hgb 10.7 L Hct 31.2 L MCV 96.0 MCH 32.9 MCHC 34.3 RDW 13.2 Plt Count 133 L MPV 10.7 Immature Gran % (Auto) Neut % (Auto) Lymph % (Auto) [place] % (Auto) Eos % (Auto) Baso % (Auto) Lymph # (Auto) [place] # (Auto) Eos # (Auto) Baso # (Auto) Abs Immat Gran (auto) Absolute Neuts (auto) Absolute Nucleated RBC 0.000 Nucleated RBC % (auto) 0.0 Absolute Retic Percent Retic Immature Retic Fraction Retic Hgb Equivalent PT 12.2 INR 1.0 Sodium 137 Potassium 3.5 D Chloride 99 Carbon Dioxide 30 H Anion Gap 12 BUN 11 Creatinine 0.82 Estim Creat Clear Calc 115.0 Estimated GFR > 60 Random Glucose 85 Calcium 8.0 L Magnesium 1.6 Iron TIBC % Saturation Unsat Iron Binding Ferritin Total Bilirubin 0.8 Direct Bilirubin AST 78 H ALT 41 H Alkaline Phosphatase 97 Lactate Dehydrogenase Total Protein 5.5 L Albumin 2.9 L Lipase Vitamin B12 804 Folate 8.2 Urine Color Urine Appearance Urine pH Ur Specific [place] Urine Protein Urine Glucose (UA) Urine Ketones Urine Blood Urine Nitrite Ur Leukocyte Esterase Urine RBC Urine WBC Ur Squamous Epith Cells Urine Bacteria Hyaline Casts Urine Opiates Screen Urine Fentanyl Screen Ur Barbiturates Screen Ur Phencyclidine Scrn Ur Amphetamines Screen U Benzodiazepines Scrn Urine Cocaine Screen U Marijuana (THC) Screen Ethyl Alcohol COVID-19 ([facility]) COVID-19 Clin Com
--- NOTE | 2023-10-21 09:22 | HO.PM.IMPN ---
Subjective Subjective Date of Service: 10/21/23 Interval History: less tremulous N/V/abd pain largely resolved electrolytes normalized NPO for EGD today Review of Systems Review of Systems: Yes all other systems are reviewed and are negative Physical Exam Vital Signs: Vital Signs: Last Vital Signs Temp 97.2 F 10/21/23 08:00 Pulse 102 H 10/21/23 08:11 Resp 20 10/21/23 08:11 BP 128/88 10/21/23 08:00 Pulse Ox 95 10/21/23 08:00 O2 Del Method Room Air 10/21/23 08:00 BMI result Body Mass Index 26.2 Gen: in no acute distress HEENT: sclera anicteric, moist mucus membranes Neck: supple Lungs: clear to auscultation bilaterally Heart: regular, tachycardic, no murmurs Abd: soft, non-tender, non-distended Ext: no edema Skin: warm/well-perfused Neuro: alert and oriented x3, no focal findings Psych: appropriate affect Objective Data Active Medications Acetaminophen (Acetaminophen 325 Mg Tablet) 650 mg PO Q6H PRN PRN Reason: Pain, Mild (Pain Scale 1-3) Last Admin: 10/20/23 23:20 Dose: 650 mg Documented By: HITESH Albuterol Sulfate (Albuterol Sulfate 90 Mcg 8 Gm Inhaler) 2 puff INHALE Q6H PRN PRN Reason: shortness of breath or wheezing Last Admin: 10/21/23 08:24 Dose: 2 puff Documented By: KYLE Amlodipine Besylate (Amlodipine Besylate 5 Mg Tablet) 5 mg PO DAILY [facility]; Protocol Last Admin: 10/21/23 08:28 Dose: 5 mg Documented By: WANDA Buprenorphine HCl (Buprenorphine Hcl 2 Mg Tab.Subl) 2 mg SUBLINGUAL Q12H [facility] Last Admin: 10/21/23 08:28 Dose: 2 mg Documented By: WANDA Doxazosin Mesylate (Doxazosin Mesylate 2 Mg Tablet) 8 mg PO BEDTIME [facility] Last Admin: 10/20/23 20:46 Dose: 8 mg Documented By: HITESH Enoxaparin Sodium (Enoxaparin Sodium 40 Mg/0.4 Ml Syringe) 40 mg SUBCUT Q24H [facility] Last Admin: 10/20/23 16:56 Dose: 40 mg Documented By: MARTHA Fluticasone/Vilanterol (Fluticasone/Vilanterol 100/25 Blst.W.Dev) 1 puff INHALE RDAILY [facility] Last Admin: 10/21/23 08:11 Dose: 1 puff Documented By: KYLE Thiamine HCl 100 mg/ Sodium (Chloride) 101 mls @ 202 mls/hr IV DAILY [facility] Last Admin: 10/21/23 08:28 Dose: 202 mls/hr Documented By: WANDA Folic Acid 1 mg/ Sodium (Chloride) 50.2 mls @ 100.4 mls/hr IV DAILY [facility] Last Infusion: 10/20/23 09:13 Dose: Infused Documented By: RICHARD Lactated Ringer's (Lr) 1,000 mls @ 125 mls/hr IVCONT .Q8H [facility] Last Admin: 10/21/23 01:57 Dose: 125 mls/hr Documented By: HITESH Lidocaine (Lidocaine 4 % Patch Adh..Patch) 1 patch TRANSDERMA DAILY PRN PRN Reason: pain topical Last Admin: 10/20/23 16:55 Dose: 1 patch Documented By: MARTHA Magnesium Oxide (Magnesium Oxide 400 Mg Tablet) 800 mg PO BIDPC [facility] Last Admin: 10/21/23 08:28 Dose: 800 mg Documented By: WANDA Multi-Ingred Medicated Throat [place] (Throat [place], Medicated 177 Ml Bottle) 1 spray MUCOUS MEM Q2H PRN PRN Reason: Sore Throat Multivitamins/Vitamin C (Multivitamin Tablet) 1 tab PO DAILY [facility] Last Admin: 10/21/23 08:27 Dose: 1 tab Documented By: WANDA Ondansetron HCl (Ondansetron Hcl 4 Mg/2 Ml Vial) 4 mg IVPUSH Q4H PRN PRN Reason: Nausea and Vomiting Last Admin: 10/20/23 16:55 Dose: 4 mg Documented By: MARTHA Oxycodone HCl (Oxycodone Hcl Immed Release 5 Mg Tablet) 5 mg PO BID PRN PRN Reason: svere pain Last Admin: 10/20/23 23:20 Dose: 5 mg Documented By: HITESH Pantoprazole Sodium (Pantoprazole Sodium 40 Mg/10 Ml Vial) 40 mg IVPUSH DAILY@0630 [facility] Last Admin: 10/21/23 06:13 Dose: 40 mg Documented By: HITESH Paroxetine HCl (Paroxetine Hcl 20 Mg Tablet) 20 mg PO DAILY [facility] Last Admin: 10/21/23 08:27 Dose: 20 mg Documented By: WANDA Pharmacy Consult (Consult Rx Etoh Phenob Po Only) 1 each MISCELLANE ONCE PRN; Protocol PRN Reason: Consult order Phenobarbital (Phenobarbital 30 Mg Tablet) 60 mg PO BID [facility]; Protocol Stop: 10/21/23 21:01 Last Admin: 10/21/23 08:27 Dose: 60 mg Documented By: WANDA Phenobarbital (Phenobarbital 30 Mg Tablet) 30 mg PO BID [facility]; Protocol Stop: 10/23/23 21:01 Phenobarbital (Phenobarbital 30 Mg Tablet) 30 mg PO DAILY [facility]; Protocol Stop: 10/25/23 09:01 Potassium Chloride (Potassium Chloride Er 20 Meq Tab.Er.Prt) 40 meq PO DAILY [facility] Last Admin: 10/21/23 08:28 Dose: 40 meq Documented By: WANDA Sodium Chloride (0.9 % Sodium Chloride Flush 3 Ml Syringe) 3 ml IVFLUSH QSHIFT [facility] Last Admin: 10/20/23 16:55 Dose: 3 ml Documented By: MARTHA Tiotropium [place] (Tiotropium [place] 2.5 Mcg 1 Puff/2.5 Mcg Mist.Inhal) 1 puff INHALE RDAILY [facility] Last Admin: 10/21/23 08:11 Dose: 1 puff Documented By: KYLE Valsartan (Valsartan 40 Mg Tablet) 40 mg PO DAILY [facility] Last Admin: 10/21/23 08:27 Dose: 40 mg Documented By: WANDA Labs 10/21/23 07:00 10/21/23 07:00 Labs: Laboratory Results - last 24 hr 10/21/23 07:00 MCV 96.0 MCH 32.9 MCHC 34.3 RDW 13.2 Plt Count 133 L MPV 10.7 Absolute Nucleated RBC 0.000 Nucleated RBC % (auto) 0.0 PT 12.2 INR 1.0 Anion Gap 12 Estim Creat Clear Calc 115.0 Estimated GFR > 60 Random Glucose 85 Calcium 8.0 L Magnesium 1.6 Total Bilirubin 0.8 AST 78 H ALT 41 H Alkaline Phosphatase 97 Total Protein 5.5 L Albumin 2.9 L Vitamin B12 804 Folate 8.2 Assessment and Plan (1) Alcohol withdrawal: Status: Acute Plan d3 53yo M with severe AUD presenting with EtOH withdrawal along with persistent N/V causing hypokalemia, hypomagnesemia, SENAIT, and alcoholic ketoacidosis. EtOH withdrawal AUD - phenobarbital taper started 10/19, continue thiamine/folate/multivitamin, Addiction Medicine consult pending distal esophageal wall thickening - GI consulted, EGD today alcoholic ketoacidosis SENAIT, prerenal - resolved with isotonic fluid resuscitation hypoK hypoMg - repleted, on PO maintenace now alcoholic gastritis - IV PPI normocytic anemia - blood loss vs dilutional vs marrow suppression from EtOH; check FOBT HTN - amlodipine, valsartan chronic lung disease - controller + rescue inhalers prostatism - doxazosin mood disorder - paroxetine chronic pain - buprenorphine, lidocaine VTE ppx - LMWH dispo - eventual home In my clinical judgment, the patient requires continued inpatient hospitalization for the following reasons: EGD, inpt EtOH withdrawal Total time managing care of this patient today: 35 minutes. Quality Stroke Does the patient have a stroke diagnosis?: No VTE Prior VTE?: No VTE Risk Level:: Medical - moderate - high VTE Device Contraindication: N/A - Device Ordered VTE Drug Contraindication: N/A - Med Ordered
[2023-10-21] MEDS: Folic Acid 1 MG in 0.9 % Sodium Chloride 50 ML 100.4 MG IV (10:00)
--- NOTE | 2023-10-21 10:16 | MHC.CM.PN ---
EMR REVIEWED, PLAN FOR EGD TODAY AND ANTIC PT WILL BE READY FOR DC IN 1-2 DAYS, ANTIC PT WILL DC HOME SELF CARE AND CM WILL CONT TO FOLLOW DC NEEDS.
[2023-10-21] MEDS: Enoxaparin Sodium 40 MG/0.4 ML SYRINGE SUBCUT (18:46)
[2023-10-21] MEDS: Doxazosin Mesylate 2 MG TABLET 8 MG PO (20:21)
[2023-10-21] MEDS: Artificial Tears 15 ML DROPS 2 DROP EYE-BOTH (21:47)
[2023-10-21] MEDS: 0.9 % Sodium Chloride Flush 3 ML SYRINGE IVFLUSH (23:52)
[2023-10-22] VITALS (10 sets, daily range): BP systolic 114–159; BP diastolic 68–99; PULSE 75–113; RESP 16–20; TEMP 36.2–37.2; O2SAT 95–98
[2023-10-22] MEDS: oxyCODONE HCl Immed Release 5 MG TABLET PO (03:30)
[2023-10-22] MEDS: Pantoprazole Sodium 40 MG/10 ML VIAL IVPUSH (06:26)
[2023-10-22] MEDS: Artificial Tears 15 ML DROPS 2 DROP EYE-BOTH ×2 (07:22→17:02)
[2023-10-22] MEDS: Fluticasone/Vilanterol 100/25 BLST.W.DEV 1 PUFF INHALE (07:43)
[2023-10-22] MEDS: Tiotropium Bromide 2.5 mcg 1 PUFF/2.5 MCG MIST.INHAL INHALE (07:43)
[2023-10-22] MEDS: Valsartan 40 MG TABLET PO (08:46)
[2023-10-22] MEDS: PARoxetine HCL 20 MG TABLET PO (08:46)
[2023-10-22] MEDS: PHENobarbitaL 30 MG TABLET PO ×2 (08:47→20:13)
[2023-10-22] MEDS: amLODIPine Besylate 5 MG TABLET PO (08:47)
[2023-10-22] MEDS: Buprenorphine HCL 2 MG TAB.SUBL SUBLINGUAL ×2 (08:47→19:53)
[2023-10-22] MEDS: Multivitamin TABLET 1 TAB PO (08:47)
[2023-10-22] MEDS: Magnesium Oxide 400 MG TABLET 800 MG PO ×2 (08:47→17:36)
[2023-10-22] MEDS: Potassium Chloride ER 20 MEQ TAB.ER.PRT 40 MEQ PO (08:47)
[2023-10-22 09:03] LABS: Hematocrit 33.9 % (42.0-52.0); Hemoglobin 11.5 g/dl (14.0-18.0); Mean Corpuscular HGB Conc 33.9 g/dl (31.0-36.0); Mean Corpuscular Hemoglobin 32.8 pg (27.0-33.0); Mean Corpuscular Volume 96.6 fL (80.0-98.0); Mean Platelet Volume 10.8 fL (9.4-12.4); Platelet Count 147 X10*3/uL (160-400); Red Blood Count 3.51 X10*6/uL (4.60-5.80); Red Cell Distribution Width 13.3 % (11.0-16.0); White Blood Count 4.4 X10*3/uL (4.8-10.8)
[2023-10-22 09:29] LABS: Alanine Aminotransferase 49 U/L (0-40); Albumin Level 3.1 g/dL (3.5-5.0); Alkaline Phosphatase 106 U/L (39-117); Anion Gap 12 (12-20); Aspartate Amino Transferase 93 U/L (5-37); Bilirubin Total 0.7 mg/dL (0.0-1.0); Blood Urea Nitrogen 7 mg/dL (9-16); Calcium 8.6 mg/dL (8.4-10.2); Carbon Dioxide 32 mmol/L (22-29); Chloride 97 mmol/L (96-108); Creatinine Clr Calc Pharmacy 125.7; Estimated Glomerular Filt Rate > 60; Glucose Random 95 mg/dL (60-115); Magnesium 1.2 mg/dL (1.6-2.6); Potassium 3.2 mmol/L (3.3-5.1); Sodium 138 mmol/L (135-145); Total Protein 5.9 g/dL (6.5-8.0)
[2023-10-22] MEDS: Albuterol/Iprat 2.5/0.5MG 3 ML AMPUL.NEB INHALE (10:43)
--- NOTE | 2023-10-22 10:50 | MHC.SHP ---
Pre-Procedural Eval Section A Date of Service: 10/22/23 The patient is an INPATIENT: Yes Changes since office visit: Yes New Medical Problems, Yes Changes in Medication and Yes Patient answered all questions; No Cold of Flu in the past 2 weeks The History & Physical has been completed within 30 days and I have reviewed it.: Yes Section B Chief Complaint: ETOH wd Allergies: Allergies Allergy/AdvReac Type Severity Reaction Status Date / Time No Known Allergies Allergy Verified 07/25/23 13:28 [No Known Allergies*] Plan Diagnosis/Plan: Unchanged I have reviewed the history and physical and performed a pertinent physical examination on my patient. No changes have occurred unless specified. Time Spent With Patient Time: Total time managing care of this patient today ____ minutes.
--- NOTE | 2023-10-22 11:21 | W.PM.OPN ---
Operative Note Operative Note Date of Service: 10/22/23 Narrative: FLEXIBLE TRANSORAL UPPER GASTROINTESTINAL ENDOSCOPY WITH BIOPSIES Pre-op diagnosis: Abnormal CT scan of the esophagus Post-op diagnosis: Erosive esophagitis, hiatal hernia, portal gastropathy, gastritis Endoscopist:? China Mohr MD Anesthesia:?MAC Consent: Indications for the procedure and potential complications of bleeding, perforation, reaction to medications and missed diagnosis were discussed with the patient and informed consent was obtained. Instrument: Olympus GIF H 190 mid size upper endoscope Monitoring: Vital signs and clinical assessment, continuous EKG monitoring, Pulse oximetry, Carbon Dioxide monitoring and blood pressure monitoring were done throughout the procedure. Procedure: The patient was placed in the left lateral decubitis position and pre-procedure medications were administered and a bite block was placed. The endoscope was inserted into the mouth and advanced under direct vision to the third part of duodenum. A careful inspection was made as the upper endoscope was withdrawn including a retroflexed examination of the proximal stomach; Findings and interventions are described below. Findings: Larynx: Edema of the arytenoid cartilages Esophagus: GE junction at 38 cms, small hiatal hernia 38 to 40 cms. Severe circumferential erosive esophagitis from 30 to 38 cms with thick yellow/white exudate - brushings were obtained to check for Eloise. Stomach: Mosaic appearance of the stomach suggestive of mild portal hypertensive gastropathy Nodular appearing gastric mucosa in the gastric body - biopsied. Mild gastric erythema. Antral biopsies were obtained to check for Helicobacter pylori. Grade 2 flap valve on retroflexed examination of the cardia. Duodenum: Normal bulb and descending duodenum Intervention: Biopsies as noted above Impression and Post Procedure Diagnosis: Endoscopy Findings: LARYNX: Changes suggestive of LPRD ESOPHAGUS: Small hiatal hernia and severe circumferential erosive esophagitis from 30 to 38 cms with thick yellow/white exudate - brushings were obtained to check for Eloise. STOMACH: Nodular gastritis and mild portal hypertensive gastropathy Plan: Await pathology results. Switch to PO Omeprazole 20 mg twice daily once pt is tolerating PO diet. Patient to schedule a FU appointment in the GI Clinic with China Mohr M.D. Repeat EGD in 3-4 months to confirm esophagitis has healed.
[2023-10-22] MEDS: Potassium Chloride Packet 20 MEQ PACKET 40 MEQ PO (12:06)
[2023-10-22] MEDS: Folic Acid 1 MG in 0.9 % Sodium Chloride 50 ML 100.4 MG IV (12:06)
[2023-10-22] MEDS: Thiamine HCL 100 MG in 0.9 % Sodium Chloride 100 ML 202 MG IV (12:07)
[2023-10-22] MEDS: Lactated Ringers 1,000 ML 125 ML IVCONT (12:14)
[2023-10-22] MEDS: Magnesium Sulfate/H2O 2 GM/50 ML PIGGYBACK IV (12:30)
--- NOTE | 2023-10-22 16:11 | MHC.RECOVRN ---
T/W followed up with pt. re: AUD information left with him over the weekend. Pt. A&O x 4, pleasant and cooperative with interaction. Pt discussed how he went to rehab last Nov. and was able to maintain sobriety for a few months following his rehab stay bby staying busy . We discussed not isolating and fellowships. Pt is not fond of AA and we discussed alternatives to this. Pt did not yet have a chance to review the information that was left for him re: medications for AUD but did state that he is not interested in medications at this time. We focused conversation on what worked in the past and T/W offered active listening and support.
[2023-10-22] MEDS: 0.9 % Sodium Chloride Flush 3 ML SYRINGE IVFLUSH (17:03)
[2023-10-22] MEDS: Famotidine/PF 20 MG/2 ML VIAL IVPUSH (17:36)
--- NOTE | 2023-10-22 17:43 | P.PNIM_ITS ---
Subjective Subjective Date of Service: 10/22/23 Interval History: Alcohol withdrawal, distal esophageal wall thickening Review of Systems denies any abd pain or nausea /vomitin Physical Exam 2 Vital Signs: Vital Signs: Last Vital Signs Temp 97.9 F 10/22/23 15:36 Pulse 100 10/22/23 15:36 Resp 18 10/22/23 15:36 BP 134/80 10/22/23 15:36 Pulse Ox 96 10/22/23 15:36 O2 Del Method Room Air 10/22/23 15:36 O2 Flow Rate 2 10/22/23 11:38 BMI result Body Mass Index 26.2 Gen: in no acute distress Lungs: clear to auscultation bilaterally Heart: regular, tachycardic, no murmurs Abd: soft, non-tender, non-distended Ext: no edema Skin: warm/well-perfused Neuro: alert and oriented x3, no focal findings Psych: appropriate affect Objective Data Active Medications Acetaminophen (Acetaminophen 325 Mg Tablet) 650 mg PO Q6H PRN PRN Reason: Pain, Mild (Pain Scale 1-3) Last Admin: 10/20/23 23:20 Dose: 650 mg Documented By: HITESH Acetaminophen (Acetaminophen 325 Mg Tablet) 650 mg PO ONCE PRN PRN Reason: Pain, Mild (Pain Scale 1-3) Albuterol Sulfate (Albuterol Sulfate 90 Mcg 8 Gm Inhaler) 2 puff INHALE Q6H PRN PRN Reason: shortness of breath or wheezing Last Admin: 10/21/23 08:24 Dose: 2 puff Documented By: KYLE Amlodipine Besylate (Amlodipine Besylate 5 Mg Tablet) 5 mg PO DAILY [facility]; Protocol Last Admin: 10/22/23 08:47 Dose: 5 mg Documented By: POORNIMA Artificial Tears (Artificial Tears 15 Ml Drops) 2 drop EYE-BOTH Q4H PRN PRN Reason: Itching Last Admin: 10/22/23 17:02 Dose: 2 drop Documented By: RHYS Buprenorphine HCl (Buprenorphine Hcl 2 Mg Tab.Subl) 2 mg SUBLINGUAL Q12H ROSARIO Last Admin: 10/22/23 08:47 Dose: 2 mg Documented By: POORNIMA Doxazosin Mesylate (Doxazosin Mesylate 2 Mg Tablet) 8 mg PO BEDTIME [facility] Last Admin: 10/21/23 20:21 Dose: 8 mg Documented By: RHYS Enoxaparin Sodium (Enoxaparin Sodium 40 Mg/0.4 Ml Syringe) 40 mg SUBCUT Q24H [facility] Last Admin: 10/21/23 18:46 Dose: 40 mg Documented By: WANDA Fluticasone/Vilanterol (Fluticasone/Vilanterol 100/25 Blst.W.Dev) 1 puff INHALE RDAILY [facility] Last Admin: 10/22/23 07:43 Dose: 1 puff Documented By: TAINA Thiamine HCl 100 mg/ Sodium (Chloride) 101 mls @ 202 mls/hr IV DAILY [facility] Last Infusion: 10/22/23 13:29 Dose: Infused Documented By: POORNIMA Folic Acid 1 mg/ Sodium (Chloride) 50.2 mls @ 100.4 mls/hr IV DAILY [facility] Last Infusion: 10/22/23 13:29 Dose: Infused Documented By: POORNIMA Lidocaine (Lidocaine 4 % Patch Adh..Patch) 1 patch TRANSDERMA DAILY PRN PRN Reason: pain topical Last Admin: 10/20/23 16:55 Dose: 1 patch Documented By: MARTHA Magnesium Oxide (Magnesium Oxide 400 Mg Tablet) 800 mg PO BIDPC [facility] Last Admin: 10/22/23 17:36 Dose: 800 mg Documented By: RHYS Multi-Ingred Medicated Throat Smiley (Throat Smiley, Medicated 177 Ml Bottle) 1 spray MUCOUS MEM Q2H PRN PRN Reason: Sore Throat Multivitamins/Vitamin C (Multivitamin Tablet) 1 tab PO DAILY [facility] Last Admin: 10/22/23 08:47 Dose: 1 tab Documented By: POORNIMA Ondansetron HCl (Ondansetron Hcl 4 Mg/2 Ml Vial) 4 mg IVPUSH Q4H PRN PRN Reason: Nausea and Vomiting Last Admin: 10/20/23 16:55 Dose: 4 mg Documented By: MARTHA Oxycodone HCl (Oxycodone Hcl Immed Release 5 Mg Tablet) 5 mg PO BID PRN PRN Reason: svere pain Last Admin: 10/22/23 03:30 Dose: 5 mg Documented By: ANTOIC Pantoprazole Sodium (Pantoprazole Sodium 40 Mg/10 Ml Vial) 40 mg IVPUSH DAILY@0630 [facility] Last Admin: 10/22/23 06:26 Dose: 40 mg Documented By: ANTOIC Paroxetine HCl (Paroxetine Hcl 20 Mg Tablet) 20 mg PO DAILY [facility] Last Admin: 10/22/23 08:46 Dose: 20 mg Documented By: POORNIMA Pharmacy Consult (Consult Rx Etoh Phenob Po Only) 1 each MISCELLANE ONCE PRN; Protocol PRN Reason: Consult order Phenobarbital (Phenobarbital 30 Mg Tablet) 30 mg PO BID [facility]; Protocol Stop: 10/23/23 21:01 Last Admin: 10/22/23 08:47 Dose: 30 mg Documented By: POORNIMA Phenobarbital (Phenobarbital 30 Mg Tablet) 30 mg PO DAILY [facility]; Protocol Stop: 10/25/23 09:01 Potassium Chloride (Potassium Chloride Er 20 Meq Tab.Er.Prt) 40 meq PO DAILY [facility] Last Admin: 10/22/23 08:47 Dose: 40 meq Documented By: POORNIMA Sodium Chloride (0.9 % Sodium Chloride Flush 3 Ml Syringe) 3 ml IVFLUSH QSHIFT [facility] Last Admin: 10/22/23 17:03 Dose: 3 ml Documented By: RHYS Tiotropium [place] (Tiotropium [place] 2.5 Mcg 1 Puff/2.5 Mcg Mist.Inhal) 1 puff INHALE RDAILY [facility] Last Admin: 10/22/23 07:43 Dose: 1 puff Documented By: BRESDEE DEE Valsartan (Valsartan 40 Mg Tablet) 40 mg PO DAILY [facility] Last Admin: 10/22/23 08:46 Dose: 40 mg Documented By: POORNIMA Labs 10/22/23 07:44 10/22/23 07:44 Labs: Laboratory Results - last 24 hr 10/22/23 07:44 MCV 96.6 MCH 32.8 MCHC 33.9 RDW 13.3 Plt Count 147 L MPV 10.8 Absolute Nucleated RBC 0.000 Nucleated RBC % (auto) 0.0 Anion Gap 12 Estim Creat Clear Calc 125.7 Estimated GFR > 60 Random Glucose 95 Calcium 8.6 D Magnesium 1.2 L* Total Bilirubin 0.7 AST 93 H ALT 49 H Alkaline Phosphatase 106 Total Protein 5.9 L Albumin 3.1 L Assessment and Plan (1) Alcohol withdrawal: Status: Acute Plan d3 53yo M with severe AUD presenting with EtOH withdrawal along with persistent N/V causing hypokalemia, hypomagnesemia, SENAIT, and alcoholic ketoacidosis. EtOH withdrawal AUD - phenobarbital taper started 10/19, continue thiamine/folate/multivitamin, Addiction Medicine consult pending distal esophageal wall thickening - GI consulted, going for EGD today alcoholic ketoacidosis SENAIT, prerenal - resolved with isotonic fluid resuscitation hypoK hypoMg - repleted, on PO maintenace now alcoholic gastritis - IV PPI normocytic anemia - blood loss vs dilutional vs marrow suppression from EtOH; check FOBT HTN - amlodipine, valsartan chronic lung disease - controller + rescue inhalers prostatism - doxazosin mood disorder - paroxetine chronic pain - buprenorphine, lidocaine VTE ppx - LMWH dispo - eventual home In my clinical judgment, the patient requires continued inpatient hospitalization for the following reasons: EGD, inpt EtOH withdrawal Total time managing care of this patient today: 35 minutes. Quality Stroke Does the patient have a stroke diagnosis?: No VTE Prior VTE?: No VTE Risk Level:: Medical - moderate - high VTE Device Contraindication: N/A - Device Ordered VTE Drug Contraindication: N/A - Med Ordered
[2023-10-22] MEDS: Enoxaparin Sodium 40 MG/0.4 ML SYRINGE SUBCUT (19:53)
[2023-10-22] MEDS: Doxazosin Mesylate 2 MG TABLET 8 MG PO (20:12)
--- NOTE | 2023-10-22 20:52 | P.EN_ITS ---
Event Note Date of Service: 10/22/23 Event Note: Addiction follow up Seen by space systems operations craftsman this afternoon (initially seen over the weekend by RN) At this time patient declining referrals or additional support Time Spent With Patient Time: Total time managing care of this patient today ____ minutes.
[2023-10-22] MEDS: Omeprazole 40 MG CAPSULE.DR PO (22:27)
--- NOTE | 2023-10-22 22:49 | PC.NURSE ---
patient reported heartburn this afternoon , medicated with one dose of pepcid 20 mg iv in afternoon , at bedtime pt stated that heartburn is moderate /severe, medicated with omeprazole x 1 ,Maalox ordered prn
[2023-10-23] VITALS (7 sets, daily range): BP systolic 113–171; BP diastolic 81–109; PULSE 75–97; RESP 18–20; TEMP 36.1–36.8; O2SAT 97–98
[2023-10-23] MEDS: 0.9 % Sodium Chloride Flush 3 ML SYRINGE IVFLUSH ×2 (00:17→08:31)
[2023-10-23] MEDS: oxyCODONE HCl Immed Release 5 MG TABLET PO (01:08)
[2023-10-23] MEDS: Magnesium Hydrox/Alum Hydrox 30 ML ORAL.SUSP PO (01:08)
[2023-10-23] MEDS: Pantoprazole Sodium 40 MG/10 ML VIAL IVPUSH (06:39)
[2023-10-23] MEDS: Fluticasone/Vilanterol 100/25 BLST.W.DEV 1 PUFF INHALE (07:50)
[2023-10-23] MEDS: Tiotropium Bromide 2.5 mcg 1 PUFF/2.5 MCG MIST.INHAL INHALE (07:50)
[2023-10-23] MEDS: PHENobarbitaL 30 MG TABLET PO (08:32)
[2023-10-23] MEDS: Magnesium Oxide 400 MG TABLET 800 MG PO (08:32)
[2023-10-23] MEDS: Buprenorphine HCL 2 MG TAB.SUBL SUBLINGUAL (08:33)
[2023-10-23] MEDS: Valsartan 40 MG TABLET PO (08:33)
[2023-10-23] MEDS: Potassium Chloride ER 20 MEQ TAB.ER.PRT 40 MEQ PO (08:33)
[2023-10-23] MEDS: PARoxetine HCL 20 MG TABLET PO (08:34)
[2023-10-23] MEDS: Multivitamin TABLET 1 TAB PO (08:34)
[2023-10-23] MEDS: amLODIPine Besylate 5 MG TABLET PO (08:34)
[2023-10-23 08:40] LABS: Hematocrit 30.2 % (42.0-52.0); Hemoglobin 10.5 g/dl (14.0-18.0)
[2023-10-23] MEDS: Thiamine HCL 100 MG in 0.9 % Sodium Chloride 100 ML 202 MG IV (08:41)
[2023-10-23 08:58] LABS: Anion Gap 9 (12-20); Blood Urea Nitrogen 9 mg/dL (9-16); Calcium 8.3 mg/dL (8.4-10.2); Carbon Dioxide 31 mmol/L (22-29); Chloride 99 mmol/L (96-108); Creatinine Clr Calc Pharmacy 127.4; Estimated Glomerular Filt Rate > 60; Glucose Random 109 mg/dL (60-115); Magnesium 1.3 mg/dL (1.6-2.6); Potassium 3.5 mmol/L (3.3-5.1); Sodium 135 mmol/L (135-145)
[2023-10-23] MEDS: Folic Acid 1 MG in 0.9 % Sodium Chloride 50 ML 100.4 MG IV (09:25)
[2023-10-23] MEDS: Magnesium Sulfate/H2O 2 GM/50 ML PIGGYBACK IV (09:25)
--- NOTE | 2023-10-23 12:19 | HO.POSTANES ---
Post Anesthesia Evaluation Post Anesthesia Evaluation Date of Service: 10/23/23 Vital Signs: Vital Signs Temp Pulse Resp BP Pulse Ox O2 Del Method 10/23/23 11:29 97 Room Air 10/23/23 11:29 97 10/23/23 11:27 97.0 F 93 18 113/81 97 Room Air 10/23/23 10:13 97 10/23/23 07:53 75 18 10/23/23 07:21 97.1 F 90 18 142/88 H 97 Room Air 10/23/23 03:29 98.2 F 97 20 132/84 97 Room Air Anesthesia: Monitored Mental Status: Awake Pain Control: Satisfactory Nausea/Vomiting: None Hydration: Adequate Anesthesia-Related Issues: No Anes. Related Issues
--- NOTE | 2023-10-23 12:26 | P.DS_ITS ---
DS: Providers Provider Date of Service: 10/23/23 Date of admission: 10/19/23 17:45 Date of discharge: 10/23/23 Primary care physician: FAB Looney Consults: 10/19/23 16:20 Addiction Medicine Routine Consulting Provider: Addiction Covering Reason for consultation: etoh 10/19/23 17:40 Consult to Gastroenterology Routine Consulting Provider: Cas Mauricio Reason for consultation: all thickening of the distal thoracic esophagus. Attending physician on discharge: Loni Chau Discharging clinician: Loni Chau DS: Diagnosis Discharge Diagnosis (1) Alcohol withdrawal: Status: Acute DS: Summary Hospital Course Hospital Course: 53yo M with AUD who lives alone and drinks 12 servings of 100-proof alcohol daily; last drink at 10:00 today. He's had to drink less than usual over the last 2 days due to excessive nausea and vomiting and now complains of a sore throat. Endorses history of alcohol withdrawal though not seizures. He complains of abdominal discomfort but says the throat discomfort is worse. In the ED, he was noted to be tremulous, tachycardic, and hypertensive with multiple electrolyte abnormalities: K 2.6, Mg 0.8, anion gap 31, bicarbonate 18, SCr 1.52 (baseline 0.86). He was given IV fluids, IV potassium and magnesium, and IV lorazepam and diazepam, then started on phenobarbital taper. CT A/P notable for thickening of the wall of the distal esophagus. Hospital course: Patient was admitted for alcohol withdrawal, , persistent nausea vomiting, hypokalemia, hypomagnesemia, SENAIT and alcohol ketoacidosis: Patient was started on phenobarbital protocol, CT abdomen was done-showeddistal esophageal wall thickening, also added antiemetics and ppi , electrolyte replacements, hydration, in addition patient was seen by GI for for distal is a focal wall thickening: EGD was done subsequently which showed erosive esophagitis ,gastritis( possible cause of patient anemia) : Patient nausea vomiting seems to be improved significantly as well as abdominal pain improved, tolerating diet, patient was switched to p.o. PPIs. H&H is stable around 10.5. Hypokalemia resolved, hypomagnesemia improving - received p.o. magnesium and IV: Monitor magnesium level out patiently. Alcoholic ketoacidosis and SENAIT also improved with hydration, alcohol withdrawal improved with phenobarb. plan: continue ppi. Patient needs to monitor CBC and BMP and magnesium level out patiently. Follow up with GI outpatient. Assessment and plan coordination time spent 50 minute. Discussed with the patient in detail length he understand and in agreement with the plan. Time Attestation Discharge coordination time: Greater than 30 minutes Quality: Safe Use of Opioids Does Pt have an Active Cancer Diagnosis on the Problem List?: No Quality: Stroke Does the patient have a stroke diagnosis?: No Physical Exam Vital Signs: Vital Signs: Last Vital Signs Temp 97.0 F 10/23/23 11:27 Pulse 93 10/23/23 11:27 Resp 18 10/23/23 11:27 BP 113/81 10/23/23 11:27 Pulse Ox 97 10/23/23 11:29 O2 Del Method Room Air 10/23/23 11:29 O2 Flow Rate 2 10/22/23 11:38 BMI result Body Mass Index 26.2 Gen: in no acute distress Lungs: clear to auscultation bilaterally Heart: regular, tachycardic, no murmurs Abd: soft, non-tender, non-distended Ext: no edema Skin: warm/well-perfused Neuro: alert and oriented x3, no focal findings Psych: appropriate affect DS: Data Data Completed and Pending Pending studies at discharge: Pending at discharge 10/22/23 11:23 Surgical [PTH] Routine Labs on day of discharge: Laboratory Results - last 24 hr 10/23/23 08:29 Hgb 10.5 L Hct 30.2 L Sodium 135 Potassium 3.5 Chloride 99 Carbon Dioxide 31 H Anion Gap 9 L BUN 9 Creatinine 0.74 Estim Creat Clear Calc 127.4 Estimated GFR > 60 Random Glucose 109 Calcium 8.3 L Magnesium 1.3 L* Imaging Chest x-ray: Radiologist's impression: ITS Impressions Abdomen/Pelvis CT 10/19/23 16:08 IMPRESSION: Wall thickening of the distal thoracic esophagus and question small hiatal hernia. Enlarged fatty liver. Mild diverticulosis. Bilateral femoral head AVN. Fleischner guidelines were followed. Discharge Plan Discharge Anticipated Discharge Date/Time: 10/23/23 11:58 Patient Disposition: Home, Self-Care Discharge Diagnosis: Erosive esophagitis and gastritis, hypomagnesemia Referrals: Jose Owen FNP-BC [Primary Care Provider] - 1 Week Discharge Medications: New magnesium 250 mg tablet 250 mg PO BID Qty: 14 0RF Continued potassium chloride 20 mEq tablet extended release 20 meq PO DAILY 30 Days Qty: 30 3RF omeprazole 40 mg capsule,delayed release(DR/EC) 40 mg PO DAILY Qty: 90 2RF paroxetine HCl 20 mg tablet 20 mg PO DAILY 90 Days Qty: 90 0RF chlorthalidone 25 mg tablet 25 mg PO DAILY Qty: 30 3RF irbesartan 75 mg tablet 75 mg PO DAILY Qty: 90 1RF omega-3 acid ethyl esters 1 gram capsule 1 cap PO BID Qty: 180 1RF Spiriva Respimat 1.25 mcg/actuation mist 2 puff INHALATION DAILY Qty: 4 1RF fluticasone propion-salmeterol [Advair Diskus] 250-50 mcg/dose blister with device 1 inh inhalation BID 30 Days Qty: 60 2RF terazosin 5 mg capsule 10 mg PO BEDTIME 90 Days Qty: 180 1RF amlodipine 5 mg tablet 5 mg PO DAILY Qty: 90 0RF Rx Instructions: Schedule next PCP appt for future refills albuterol sulfate [Ventolin HFA] 90 mcg/actuation HFA aerosol inhaler 2 puff inhalation Q6H PRN (Reason: shortness of breath or wheezing) Qty: 8.5 1RF buprenorphine HCl 2 mg tablet, sublingual 2 mg sublingual Q12H quetiapine 50 mg tablet 50 mg PO BEDTIME PRN (Reason: Sleep) acetaminophen [Tylenol Extra Strength] 500 mg tablet 500 mg PO Q6H PRN (Reason: fever or pain) Qty: 14 0RF lidocaine [Lidoderm] 5 % adhesive patch,medicated 1 patch topical DAILY MDD remove after 12 hours PRN (Reason: pain) Qty: 30 0RF Rx Instructions: leave on most painful area for up to 12 hrs (DME) BD Insulin Syringe 1 mL 25 gauge x 5/8 syringe See Rx Instructions .MEDSUPPLY Qty: 30 0RF Rx Instructions: As directed oxycodone 5 mg tablet 5 mg PO BID PRN (Reason: Pain) Discharge Orders: Discharge Order (Routine); Ordered 10/23/23 Ordered By: Loni Chau Diet: Advance to usual diet Activity on Discharge: As tolerated Stand Alone Forms: Patient Portal Discharge page Other Ambulatory Orders: Basic Metabolic Panel Fasting (Routine) Timeframe: 1 Week Facility: [facility] - Location: Laboratory Ordered By: Loni Chau Complete Blood Count no Diff (Routine) Timeframe: 1 Week Facility: [facility] - Location: Laboratory Ordered By: Loni Chau Magnesium (Routine) Timeframe: 1 Week Facility: [facility] - Location: Laboratory Ordered By: Loni Chau Care Plan Goals: Patient was admitted for alcohol withdrawal, , persistent nausea vomiting, hypokalemia, hypomagnesemia, SENAIT and alcohol ketoacidosis: Patient was started on phenobarbital protocol, CT abdomen was done-showeddistal esophageal wall thickening, also added antiemetics and ppi , electrolyte replacements, hydration, in addition patient was seen by GI for for distal is a focal wall thickening: EGD was done subsequently which showed erosive esophagitis ,gastritis( possible cause of patient anemia) : Patient nausea vomiting seems to be improved significantly as well as abdominal pain improved, tolerating diet, patient was switched to p.o. PPIs. H&H is stable around 10.5. Hypokalemia resolved, hypomagnesemia improving - received p.o. magnesium and IV: Monitor magnesium level out patiently. Alcoholic ketoacidosis and SENAIT also improved with hydration, alcohol withdrawal improved with phenobarb. Patient needs to monitor CBC and BMP and magnesium level out patiently. Follow up with GI outpatient. Health Concerns: As above. Plan of Treatment: As above. Assessment: as above. Patient Instructions: Hypokalemia (DC), Alcohol Withdrawal (DC), Hypomagnesemia (DC), Anemia (DC)
--- NOTE | 2023-10-23 12:45 | MHC.CM.PN ---
Pt has been medically cleared for DC, he will go home via [facility] shuttle, no home care services needed.
== END 2023-10-23 12:49 | disposition home or self-care (01) | DRG 392 ==
LOC: HO.ED 16:16 → HO.EDOVER 17:49 → HO.IMC 10-20 13:46
PROVIDERS: Internal Medicine Gastroenterology; Nurse Practitioner Family; Admitting Provider Family Medicine; Emergency Provider Emergency Medicine Emergency Medical Services; PCP Nurse Practitioner Family; Visit Provider Internal Medicine
PROC: 0DJ08ZZ Inspection of Upper Intestinal Tract, Via Natural or Artificial Opening Endoscopic (ICD-10-PCS; CPT 43235; principal; 2023-10-22 10:30)
DX: K29.20 Alcoholic gastritis without bleeding (principal); F10.139 Alcohol abuse with withdrawal, unspecified; E87.29 Other acidosis; K76.6 Portal hypertension; K22.10 Ulcer of esophagus without bleeding; N17.9 Acute kidney failure, unspecified; K46.9 Unspecified abdominal hernia without obstruction or gangrene; I10 Essential (primary) hypertension; K29.70 Gastritis, unspecified, without bleeding; D64.9 Anemia, unspecified; K21.9 Gastro-esophageal reflux disease without esophagitis; K31.89 Other diseases of stomach and duodenum; N40.0 Benign prostatic hyperplasia without lower urinary tract symptoms; J45.40 Moderate persistent asthma, uncomplicated; E87.6 Hypokalemia; E03.9 Hypothyroidism, unspecified; G89.29 Other chronic pain; E83.42 Hypomagnesemia; F17.290 Nicotine dependence, other tobacco product, uncomplicated; Z71.6 Tobacco abuse counseling; Y90.4 Blood alcohol level of 80-99 mg/100 ml; Z20.822 Contact with and (suspected) exposure to COVID-19; Z79.51 Long term (current) use of inhaled steroids; Z79.890 Hormone replacement therapy; Z79.899 Other long term (current) drug therapy
CPT/HCPCS: 36415; 74177; 80048; 80053; 80076; 80307; 81001; 81003; 82607; 82728; 82746; 83540; 83615; 83690; 83735; 85014; 85018; 85025; 85027; 85045; 85610; 87102; 87106; 87635; 88305; 88342; 93005; 94640; 99285; C9113; J0571; J1100; J1650; J2060; J2250; J2405; J2560; J2704; J2765; J3360; J3411; J3475; J3480; J7120; Q9967

== ENCOUNTER → 2023-10-19 11:11 | Outpatient (BNV) | payer OTHER, SELFPAY | PROVIDERS: Admitting Provider Family Medicine; Emergency Provider Emergency Medicine Emergency Medical Services; PCP Nurse Practitioner Family; Visit Provider Internal Medicine | DX: R00.0 Tachycardia, unspecified (principal); R94.31 Abnormal electrocardiogram [ECG] [EKG] | CPT/HCPCS: 93010 ==

== ENCOUNTER → 2023-10-19 17:45 | Outpatient (BNV) | payer OTHER, SELFPAY | PROVIDERS: Admitting Provider Family Medicine; Emergency Provider Emergency Medicine Emergency Medical Services; PCP Nurse Practitioner Family; Visit Provider Family Medicine | DX: F10.939 Alcohol use, unspecified with withdrawal, unspecified (principal) | CPT/HCPCS: 99223; 99231; 99232; 99239 ==

== ENCOUNTER → 2023-10-19 17:45 | Outpatient (BNV) | payer OTHER, SELFPAY | PROVIDERS: Admitting Provider Family Medicine; Emergency Provider Emergency Medicine Emergency Medical Services; PCP Nurse Practitioner Family; Visit Provider Internal Medicine Gastroenterology | DX: R93.3 Abnormal findings on diagnostic imaging of other parts of digestive tract (principal); K29.70 Gastritis, unspecified, without bleeding; K76.6 Portal hypertension; K31.7 Polyp of stomach and duodenum | CPT/HCPCS: 43239 ==

== ENCOUNTER 2023-12-11 14:35 | Outpatient (REF) | payer OTHER, SELFPAY ==
--- NOTE | ~2023-12-11 | XR_ITS ---
EXAMINATION: XR CERVICAL SPINE CLINICAL INFORMATION: Neck pain COMPARISON: Cervical spine x-ray on 04/05/2022 TECHNIQUE: 5 views of the cervical spine were obtained. FINDINGS: The visualized cervical vertebrae are intact with mild C4-C5 kyphosis. Odontoid process is intact with normal C1/C2 lateral masses alignment. Pre-dental interval is normal. Pre vertebral soft tissue is normal in thickness. Prominent anterior bridging syndesmophytes are seen from C5 to C7. Bilateral oblique x-rays of cervical spine show patent cervical neural foramina. XR/XR cervical spine 5V IMPRESSION: 1. Unchanged mild C4-C5 kyphosis, anterior C5-C7 bridging syndesmophytes. 2. No fracture or dislocation of cervical spine is seen.
--- NOTE | ~2023-12-11 | XR_ITS ---
EXAMINATION: XR PELVIS CLINICAL INFORMATION: Pelvic pain COMPARISON: None available. TECHNIQUE: AP view of the pelvis. FINDINGS: No fracture. Hip joint spaces are maintained. Alignment is anatomic. Sacroiliac joints and pubic symphysis are normal. No abnormal soft tissue calcifications. XR/XR pelvis 1-2V IMPRESSION: Normal pelvis.
--- NOTE | ~2023-12-11 | XR_ITS ---
EXAMINATION: XR LUMBOSACRAL SPINE WITH OBLIQUES CLINICAL INFORMATION: Low back pain COMPARISON: Lumbar spine x-ray on 09/13/2016 TECHNIQUE: Frontal and lateral x-rays of lumbar spine, lateral flexion and extension views of lumbar spine FINDINGS: The visualized lumbar vertebrae are intact with minimal anterior L4 on L5 displacement by 0.3 cm, which remains unchanged in flexion and extension. Intervertebral disc spaces are mildly decreased at L4-L5 and L5-S1. Prominent anterior and lateral bridging syndesmophytes are seen at L1-L2, L2-L3 and L5-S1 junction XR/XR lumbar spine 6V w bending IMPRESSION: 1. Interval development of Mild degenerative disc disease at L4-L5 and L5-S1. 2. Interval development of mild Grade 1 L4-L5 spondylolisthesis, unchanged in flexion and extension. 3. Interval increase in Large lateral L1-L3 bridging syndesmophytes, anterior bridging L1-L2 and L5-S1 syndesmophytes are present.
[2023-12-11 16:15] LABS: Hematocrit 37.3 % (42.0-52.0); Hemoglobin 12.7 g/dl (14.0-18.0); Mean Corpuscular Hemoglobin 31.1 pg (27.0-33.0); Mean Corpuscular Volume 91.4 fL (80.0-98.0); Platelet Count 283 X10*3/uL (160-400); Red Blood Count 4.08 X10*6/uL (4.60-5.80); Red Cell Distribution Width 15.6 % (11.0-16.0); White Blood Count 8.8 X10*3/uL (4.8-10.8)
[2023-12-11 16:45] LABS: Prostate Specific Antigen 1.44 ng/mL (<0.05-4.0)
[2023-12-15 16:03] LABS: Testosterone, Total 185 ng/dL (250-1100)
== END 2023-12-11 14:36 | disposition home or self-care (01) ==
LOC: HO.HMGCX 14:35
PROVIDERS: PCP Nurse Practitioner Family; Referring Provider Physical Medicine & Rehabilitation; Visit Provider Urology
DX: E29.1 Testicular hypofunction (principal); M54.50 Low back pain, unspecified; M54.2 Cervicalgia; M25.561 Pain in right knee; R10.2 Pelvic and perineal pain; Z12.5 Encounter for screening for malignant neoplasm of prostate
CPT/HCPCS: 36415; 72050; 72114; 72170; 84153; 84403; 85027

== ENCOUNTER 2023-12-17 15:36 | Outpatient (AMB) | payer OTHER, SELFPAY ==
--- NOTE | 2023-12-17 15:39 | A.OFFVIS_ITS ---
Intake Intake Visit Reasons: PSA/testo follow Up(set) Intake Note: Patient is Present for Telephone Follow Up labs Urology Med: Terazosin, Antibiotic Allergy: None Blood Thinner: None Allergies No Known Allergies [No Known Allergies*] Allergy (Verified 07/25/23 13:28) Medication List - Last Reconciled 12/17/23 by All Orta MD acetaminophen (Tylenol Extra Strength) 500 mg PO Q6H PRN albuterol sulfate 90 mcg/actuation (Ventolin HFA) 2 puffs inhalation Q6H PRN amlodipine 5 mg PO DAILY buprenorphine HCl 2 mg sublingual Q12H chlorthalidone 25 mg PO DAILY fluticasone propion-salmeterol 250-50 mcg/dose (Advair Diskus) 1 inh inhalation BID 30 days insulin syringe-needle U-100 (BD Insulin Syringe) As directed irbesartan 75 mg PO DAILY lidocaine 5% (Lidoderm) 1 patch topical DAILY PRN MDD remove after 12 hours magnesium 250 mg PO BID omega-3 acid ethyl esters 1 cap PO BID omeprazole 40 mg PO DAILY oxycodone 5 mg PO BID PRN paroxetine HCl 20 mg PO DAILY 90 days potassium chloride ER 20 mEq PO DAILY 30 days quetiapine 50 mg PO BEDTIME PRN terazosin 10 mg (2 x 5 mg) PO BEDTIME 90 days testosterone cypionate (Depo-Testosterone) 80 mg (0.4 mL) subcut QWEEK 4 weeks tiotropium bromide 1.25 mcg/actuation (Spiriva Respimat) 2 puffs inhalation DAILY HPI HPI Comments History of Present Illness Details Guanako is a pleasant male. He is a patient of Dr. Julian. He is seen for the following urologic issues - hypogonadism - lower urinary tract symptoms Telemedicine Evaluation 15 min Consultation Talend Constantino Video attempted Had runoff testosterone 2 months ago Labs remain low Will restart Continue with 0.4 cc subcutaneous testosterone 6 month f/u with labs 2 weeks prior Injection Day: Saturday Lab test Day: Hypogonadism: Other issues been with pain management. We need to normalize his testosterone before his overall pain management can be optimized. - Did encourage him to drink less alcohol is this also factors in. He presents today for further evaluation and followup of his hypogonadism. Initial symptoms include erectile dysfunction Yes decreased libido Yes change in mood/depression Yes in muscle size/strength Yes increased fatigue/malaise Yes Associate conditions include obstructive sleep apnea Yes CAD No obesity No stress - financial, family, employment No heavy alcohol or illicit drug use Yes 300 cc 100 proof alcohol per evening previously He has been taking History of intermittent external testosterone use. Laboratory results 03/29 T 54 04/29 707 High estrogen 07/30 1800 10/29 T 223 - 03/31 T 473, PSA 0.8, 12/02 203 P 0.5 E5, 06/01 T 200, 11/01 T 670 P 2.3, 12/04 T 185 Diagnosis based on history and laboratory results Primary testicular failure, secondary to, exogenous steroid administration. Lower urinary tract symptoms Ongoing Responsive to alpha-alyson Has noted nocturia 2 times per evening Would perform cystoscopy if persistent PFSH Medical History Moderate persistent asthma Clubbing of nails Lumbar degenerative disc disease Right knee pain Primary osteoarthritis, right shoulder Right shoulder pain Cervicalgia Knee osteoarthritis Lung disease caused by breathing particles Depression Supraclavicular mass Sleep apnea in adult Pulmonary nodules Hypogonadism in male Nocturia more than twice per night Wrist fracture Posttraumatic stress disorder Anxiety Hypothyroidism Surgical History History of colonoscopy History of inguinal hernia repair Family History Mother Alive and well Breast cancer Father No problems noted. Daughter Alive and well Daughter Alive and well Brother Alive and well Social History Household Members: None Housing: Apartment Do you presently have visiting nurse or other home services: No Alcohol intake: current Alcohol intake frequency: 3 or more drinks per day Alcohol type: hard liquor Patient Tobacco Use Status: Current everyday Tobacco user Tobacco use type: Smokeless Tobacco Cigarette Packs Per Day: 1 Cigarettes Per Day: 20.0 Years Smoked: quit cigaretters 8 years ago, once/month cigars & chewing tobacco e-Cigarette/Vaping Use: Currently Using Second Hand Smoke Exposure: No Substance Use Type: Opiates service: Yes Current occupational status: employed 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 Cognitive needs: No Hearing needs: No Vision needs: No Review of Systems Const All systems reviewed & are unremarkable except as noted in HPI and below Reports no additional complaints Resp Reports no additional complaints GI Reports no additional complaints Reports as per HPI Musc Reports no additional complaints Physical Exam Telemedicine evaluation Appropriate responses Regular breathing rate and rhythm HEENT Head: Yes normal to inspection Ears: hearing grossly normal bilaterally Eyes General: appearance normal, both eyes and all related structures Neck Neck: Yes normal visual inspection Chest Chest palpation & inspection: normal inspection of the chest Resp Effort & Inspection: normal respiratory effort and able to speak in complete sentences Assessment & Plan Assessment & Plan (1) Hypogonadism in male: Code(s): E29.1 - Testicular hypofunction Plan Six-month follow-up labs Medications: New testosterone cypionate (Depo-Testosterone) 80 mg (0.4 mL) subcut QWEEK 4 weeks 2 mL 5RF E29.1 - Testicular hypofunction, [id number] Patient Instructions: Imaging studies, laboratory and physical exam results were discussed and reviewed in detail. No major barriers to patient understanding were identified. An opportunity to ask questions regarding the treatment plan was provided. All questions were answered. The patient expressed understanding and agreement with the above treatment plan. The patient is aware they should contact our office by phone for worsening of their current condition or the appearance of new urologic symptoms. Compliance is encouraged with any medications and followup testing that is ordered. It is a privilege to participate in the urologic care of your patient. If you have any questions or concerns regarding treatment for the above conditions, or other urologic issues, please do not hesitate to contact me. The office telephone contact is [phone]. This note is constructed using voice recognition software. While every effort has been made to ensure accuracy outpatient interviewing clerk errors may have been included. Yours sincerely, Dr All Orta MD, [facility] - Urology Providers of Expert, Compassionate Care for the Genitourinary System Telehealth Telehealth Location of provider rendering services: practice address Location of patient: address on file Patient Identification confirmed using: Name, : Yes Telehealth method: video Patient verbally consented to treatment: Yes Patient verbally consented to billing insurance company: Yes Patient informed of any privacy concerns related to visit: Yes Coding Level of Care Code Tele Est Pt Level 4 (21022) Diagnoses Hypogonadism in male E29.1
== END 2023-12-17 16:51 | disposition home or self-care (01) ==
LOC: HO.HUSH 15:36
PROVIDERS: PCP Nurse Practitioner Family; Visit Provider Urology
DX: E29.1 Testicular hypofunction (principal)
CPT/HCPCS: 99214

== ENCOUNTER → 2023-12-17 15:36 | Outpatient (BNVA) | payer OTHER, SELFPAY | PROVIDERS: PCP Nurse Practitioner Family; Visit Provider Urology ==

== ENCOUNTER 2023-12-19 12:46 | Outpatient (AMB) | payer OTHER, SELFPAY ==
[2023-12-19 12:48] VITALS: BP 139/102; PULSE 118; BMI 26.5
--- NOTE | 2023-12-19 12:48 | A.OFFVIS_ITS ---
Intake Vital Signs 12/19/23 12:48 12/19/23 13:19 Height 6 ft 1 in Weight 201 lb 0.985 oz BMI 26.5 BP 139/102 H 148/97 H Blood Pressure Location Lt brachial Rt brachial Position Sitting Sitting Pulse 118 H 100 Pulse Source Pulse Oximeter Pulse Oximeter Intake Visit Reasons: follow up Intake Note: Pt presents to the office today for a follow up. Pt states he is feeling well and denies any concerns at this time. Allergies No Known Allergies [No Known Allergies*] Allergy (Verified 12/19/23 12:49) Medication List - Last Reconciled 12/19/23 by China Mohr MD acetaminophen (Tylenol Extra Strength) 500 mg PO Q6H PRN albuterol sulfate 90 mcg/actuation (Ventolin HFA) 2 puffs inhalation Q6H PRN amlodipine 5 mg PO DAILY buprenorphine HCl 2 mg sublingual Q12H chlorthalidone 25 mg PO DAILY fluticasone propion-salmeterol 250-50 mcg/dose (Advair Diskus) 1 inh inhalation BID 30 days insulin syringe-needle U-100 (BD Insulin Syringe) As directed irbesartan 75 mg PO DAILY lidocaine 5% (Lidoderm) 1 patch topical DAILY PRN MDD remove after 12 hours magnesium 250 mg PO BID omega-3 acid ethyl esters 1 cap PO BID omeprazole 40 mg PO DAILY oxycodone 5 mg PO BID PRN paroxetine HCl 20 mg PO DAILY 90 days potassium chloride ER 20 mEq PO DAILY 30 days quetiapine 50 mg PO BEDTIME PRN terazosin 10 mg (2 x 5 mg) PO BEDTIME 90 days testosterone cypionate (Depo-Testosterone) 80 mg (0.4 mL) subcut QWEEK 4 weeks tiotropium bromide 1.25 mcg/actuation (Spiriva Respimat) 2 puffs inhalation DAILY HPI follow up HPI Details GI Clinic visit for this 51-year-old male for FU of elevated LFTs (felt to be related to ETOH intake) and a history of adenomatous colon polyps. Pt scheduled for a FU appt after hospitalization at [facility] from 10/19 to 10/23/23: Hospital course: Patient was admitted for alcohol withdrawal, , persistent nausea vomiting, hypokalemia, hypomagnesemia, SENAIT and alcohol ketoacidosis: Patient was started on phenobarbital protocol, CT abdomen was done-showeddistal esophageal wall thickening, also added antiemetics and ppi , electrolyte replacements, hydration. Patient was seen by GI for for distal is a focal wall thickening: EGD was done subsequently which showed erosive esophagitis ,gastritis( possible cause of patient anemia) : Patient nausea vomiting seems to be improved significantly as well as abdominal pain improved, tolerating diet, patient was switched to p.o. PPIs. H&H is stable around 10.5. Hypokalemia resolved, hypomagnesemia improving - received p.o. magnesium and IV: Monitor magnesium level out patiently. Alcoholic ketoacidosis and SENAIT also improved with hydration, alcohol withdrawal improved with phenobarb. plan: continue ppi. Patient needs to monitor CBC and BMP and magnesium level out patiently. Follow up with GI outpatient. ? CHRONIC ILLNESSES:?Hypothyroidism, anxiety, PTSD, GERD with elevated LFTs likely due to ongoing ETOH use ? LABS IN [facility]: 03/23/20 AST 60, ALT 59, AP 37 (increased from AST 44, ALT 61 on 01/12/20), ? 03/29 liver fibrosis score 0.20, liver fibrosis stage F0, necroinf lammatory score of 0.26. ?IMAGING STUDIES:?11/[address] SCAN SHOWED: Wall thickening of the distal thoracic esophagus and question small hiatal hernia. Enlarged fatty liver. Mild diverticulosis. Bilateral femoral head AVN. 07/[address] SCAN SHOWED: Diverticulosis of the colon. No evidence of diverticulitis. Question wall and fold thickening of the proximal stomach versus changes due to underdistention. AVN of the right femoral head. Stable right lower lobe pulmonary nodule. 01/18/21 abdominal ultrasound showed: Slightly increased liver echogenicity but no focal lesions seen. Slightly bulbous but patent middle portal vein on Doppler exam. Gallstones without wall thickening. ?The rest of the abdominal ultrasound is unremarkable. ENDOSCOPIC PROCEDURES; 10/22/23 EGD SHOWED: LARYNX: Changes suggestive of LPRD ESOPHAGUS: Small hiatal hernia and severe circumferential erosive esophagitis from 30 to 38 cms with thick yellow/white exudate - brushings were obtained to check for Eloise. STOMACH: Nodular gastritis and mild portal hypertensive gastropathy Plan: Switch to PO Omeprazole 20 mg twice daily once pt is tolerating PO diet. Repeat EGD in 3-4 months to confirm esophagitis has healed 06/2019 COLONOSCOPY SHOWED: Rectum ? Three 8-10 mm sessile polyps removed with hot and cold snare. Ano-rectum - Moderate internal hemorrhoids Colon preparation: Good after some irrigation Impression and Post Procedure Diagnosis: Three polyps removed Moderate diverticulosis seen in the rectum Moderate hemorrhoids on retroflexed exam. Plan: Repeat Colonoscopy interval based on path results ? in 3-5 years if polyps are adenomatous and 10 years if polyps are hyperplastic. ADDENDUM: BIOPSIES SHOWED: Rectum, polypectomies: - Tubular adenoma; no high grade dysplasia or carcinoma seen. - Hyperplastic mucosal polyp(s). Letter sent advising repeat colonoscopy in 3 years. Action set in [facility] TODAY'S VISIT Pt presents to the office today for a follow up. Pt states he is feeling well and denies any concerns at this time. Went to rehab and trying to stay away from ETOH. 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 Denies heartburn or dysphagia Normal BMs without blood. Appetite is coming back since he stopped drinking. PAST VISITS: Went to [place] over the holidays with his exwife. Seeing pain management and has been trying to cut back on ETOH intake. Saw a new physician in Pain management and was prescribed oxycodone 10 mg three times a day for pain Tries not to eat too much starch - causes drowsiness and bloating. Heartburn controlled with Omeprazole - avoids tomato sauce and fried donuts Denies constipation. Scheduled to get injection in sciatic nerve for management of sciatica by Dr Garay at [facility] ? Has been staying home ? Last few months, he has noted intermittent bloating. ? Feels bloated when he takes starches - bread, rice, potatoes ? Heartburn is controlled with Omeprazole. ? BMs are regular and denies constipation. ? Has been trying to drink more water. ? Drinking 32 ounces of green tea a day and using 3 artificial sweetners in his coffee -advised to discontinue artificial sweeteners. ? Drinking 6 shots (2 drinks) at night. ? Lab results were reviewed with the patient. ? Has not had any recurrent abdominal pain. ? Has been? seen pain management and taking oxycodone for pain and has cut back on EtOH use. ? Has been changing his diet, excessive sugar and has been eating healthier with more fibre intake. ? ??PAST VISIT: ? taking 6 shots and a beer daily. ? Seen at [facility] ED on 01/01/20 with abdominal pain - felt due to constipation and gas. ? Took Gas X and no carb diet and felt better. ? Taking 4 drinks of alcohol a day. ? He was advised repeat colonoscopy in 3 years. ? Has difficulty remembring his appointments due to past history of traumatic brain injury. Patient got injured in [place] and was airlifted to [facility] and then [facility] where he was hospitalized for 6 weeks [facility] Medical History Moderate persistent asthma Clubbing of nails Lumbar degenerative disc disease Right knee pain Primary osteoarthritis, right shoulder Right shoulder pain Cervicalgia Knee osteoarthritis Lung disease caused by breathing particles Depression Supraclavicular mass Sleep apnea in adult Pulmonary nodules Hypogonadism in male Nocturia more than twice per night Wrist fracture Posttraumatic stress disorder Anxiety Hypothyroidism Surgical History History of colonoscopy History of inguinal hernia repair Family History Mother Alive and well Breast cancer Father No problems noted. Daughter Alive and well Daughter Alive and well Brother Alive and well Social History Household Members: None Housing: Apartment Do you presently have visiting nurse or other home services: No Alcohol intake: current Alcohol intake frequency: 3 or more drinks per day Alcohol type: hard liquor Patient Tobacco Use Status: Current everyday Tobacco user Tobacco use type: Smokeless Tobacco Cigarette Packs Per Day: 1 Cigarettes Per Day: 20.0 Years Smoked: quit cigaretters 8 years ago, once/month cigars & chewing tobacco e-Cigarette/Vaping Use: Currently Using Second Hand Smoke Exposure: No Substance Use Type: Opiates service: Yes Current occupational status: employed 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 Cognitive needs: No Hearing needs: No Vision needs: No Review of Systems Const All systems reviewed & are unremarkable except as noted in HPI and below Physical Exam Vital Signs: Last Vital Signs Pulse 100 12/19/23 13:19 BP 148/97 H 12/19/23 13:19 BMI result Body Mass Index 26.5 Const General: healthy appearing and no acute distress Nutritional Appearance: overweight Orientation/consciousness: patient oriented x3 Limitations: no limitations HEENT Head: Yes normal to inspection Ears: hearing grossly normal bilaterally Mouth: Normal oral and palatal mucosa present Eyes Sclerae: sclerae normal Pupils: Equal, round and reactive pupils present Neck Neck: Yes normal visual inspection Chest Chest palpation & inspection: normal inspection of the chest Resp Effort & Inspection: normal respiratory effort Auscultation: clear to auscultation bilaterally Cardio Palpation: normal PMI Rate: regular rate Rhythm: regular rhythm Heart sounds: S1 normal heart sound present, S2 normal heart sound present and no murmurs GI Palpation (GI): Soft to palpation, nontender and No hepatosplenomegaly present Auscultation: normal bowel sounds Rectal Exam - Male: Yes deferred Skin General skin exam: no rashes or lesions noted and other (Multiple tattoos) Neuro General: patient oriented x3, gait normal and moves all extremities Cranial nerves: Yes Equal, round and reactive pupils present Psych Appearance: grossly normal Mental Status: mental status grossly normal Assessment & Plan Assessment & Plan (1) Alcohol abuse: Code(s): F10.10 - Alcohol abuse, uncomplicated (2) Abdominal bloating: Comment: Likely due to a change in diet or due to gallstones. Patient was advised to stop taking artificial sweeteners. Take simethicone chewable tablets p.r.n. if symptoms get worse. Code(s): R14.0 - Abdominal distension (gaseous) (3) Gastroesophageal reflux disease: Comment: Continue omeprazole 40 mg once a day. EGD-Walden's surveillance, r/o peptic ulcer disease, nonulcer dyspepsia, esophagitis, other endoscopic findings to account for sx Code(s): K21.9 - Gastro-esophageal reflux disease without esophagitis (4) Elevated transaminase level: Comment: elevated LFTs likely due to ongoing ETOH use. Past evaluation with Hepatitis B and C serologies was negative and ferritin and ceruloplasmin were normal. Code(s): R74.01 - Elevation of levels of liver transaminase levels (5) History of colon polyps: Comment: colonoscopy on 06/18/2019 which revealed moderate diverticulosis in the entire colon and three 8-10 mm polyps were removed from the rectum. Biopsies revealed tubular adenoma and hyperplastic polyp, advised repeat colonoscopy in 3 years. 2021 Code(s): Z86.010 - Personal history of colonic polyps (6) Anemia: Code(s): D64.9 - Anemia, unspecified Plan 53 YM with Hypothyroidism, anxiety, PTSD, GERD with elevated LFTs likely due to ongoing ETOH use. Past evaluation with Hepatitis B and C serologies was negative and ferritin and ceruloplasmin were normal. States he is unable to quit drinking since it helps him sleep at night. He has difficulty sleeping due to chronic shoulder and neck pains. He was advsied to cut back on his ETOH intake if possible and FU in 6 months with repeat LFTs.? Review of labs showed improvement in LFTs with weight loss suggesting LFTs elevation was likely associated with fatty liver. Patient had a colonoscopy on 06/18/2019 which revealed moderate diverticulosis in the entire colon and three 8-10 mm polyps were removed from the rectum. Biopsies revealed tubular adenoma and hyperplastic polyp. Patient was advised repeat colonoscopy in 3 years (due 06/2022). I will check labs for celiac sprue since pt notes abdominal bloating when he takes bread. 12/19/23 Went to rehab and trying to stay away from ETOH. 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 Denies heartburn or dysphagia Normal BMs without blood. Appetite is coming back since he stopped drinking. PT was advised to schedule an EGD (FU of erosive esophagitis) and a colonoscopy (FU of colon polyps) - scheduled on 05/18/24 FU appointment in 2 months Medications: New bisacodyl (Dulcolax (bisacodyl)) Take 4 tablets at 12 pm the day before colonoscopy appointment 20 mg (4 x 5 mg) PO ONCE 4 tabs 0RF colon prep 1 day polyethylene glycol 3350 (Miralax) Mix Miralax with 64 oz(8 cups) of Crystal light. Take 2 tablets of Dulcolax qt 12 pm. Wait to have your 1st bowel movement, then begin drinking Miralax. Drink a glass of Miralax every 10-15 minutes until you are finished. You will drink at least another 4 cups of clear liquid of your choice over the next 2 hours. Please drink as many clear liquids as possible You may have clear liquids up to four hours before your procedure 17 grams PO DAILY 238 grams 0RF 1 day Refilled magnesium 250 mg PO BID 14 tabs 0RF Coding Level of Care Code Est Pt Level 4 (41712) Diagnoses Alcohol abuse F10.10 Abdominal bloating R14.0 Gastroesophageal reflux disease K21.9 Elevated transaminase level R74.01 History of colon polyps Z86.010 Anemia D64.9 Time Spent (min) 21
[2023-12-19 13:19] VITALS: BP 148/97; PULSE 100
== END 2023-12-19 14:31 | disposition home or self-care (01) ==
PROVIDERS: PCP Nurse Practitioner Family; Visit Provider Internal Medicine Gastroenterology
DX: F10.10 Alcohol abuse, uncomplicated (principal); R14.0 Abdominal distension (gaseous); K21.9 Gastro-esophageal reflux disease without esophagitis; R74.01 Elevation of levels of liver transaminase levels; Z86.010 Personal history of colon polyps; D64.9 Anemia, unspecified
CPT/HCPCS: 99214

== ENCOUNTER → 2023-12-19 12:46 | Outpatient (BNVA) | payer OTHER, SELFPAY | PROVIDERS: PCP Nurse Practitioner Family; Visit Provider Internal Medicine Gastroenterology | DX: R14.0 Abdominal distension (gaseous) (principal); K21.9 Gastro-esophageal reflux disease without esophagitis; R74.01 Elevation of levels of liver transaminase levels; D64.9 Anemia, unspecified; F10.10 Alcohol abuse, uncomplicated; Z86.010 Personal history of colon polyps | CPT/HCPCS: 99212 ==

== ENCOUNTER 2024-02-26 12:04 | Outpatient (AMB) | payer OTHER, SELFPAY ==
--- NOTE | 2024-02-26 12:07 | MHC.OFFWIV ---
Intake Vital Signs 02/26/24 12:08 Height 6 ft 1 in Weight 244 lb BMI 32.2 BP 140/80 H Blood Pressure Location Lt brachial Position Sitting Pulse 80 Pulse Source Pulse Oximeter Pulse Oximetry (%) 97 Oxygen Delivery Method Room Air Intake Visit Reasons: EP Water retention/belly hurts Intake Note: pt is here for c/o water retention/swelling around ankles, and belly button operation awhile ago and recently started having belly button pain Patient Tobacco Use Status: Current everyday Tobacco user Allergies No Known Allergies [No Known Allergies*] Allergy (Verified 02/26/24 12:10) Do you need a note to return to daycare/school/sports/work: No HPI HPI Comments History of Present Illness Details 53 y/o male patient who presents to walk in clinic with c/o multitude symptoms today. Pt c/o left lower leg pain, that has been radiating up to thigh. C/o peripheral edema bilateral lower extremities. C/o Abdominal pain with distention. C/O SOB and difficulty moving air in/out. Reports that symptoms started ~ 5 days ago. H/o Alcohol abuse, with multiple ED visits. 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 Daughter Alive and well Daughter Alive and well Brother Alive and well Social History Household Members: None Housing: Apartment Do you presently have visiting nurse or other home services: No Alcohol intake: current Alcohol intake frequency: 3 or more drinks per day Alcohol type: hard liquor Patient Tobacco Use Status: Current everyday Tobacco user Tobacco use type: Smokeless Tobacco Cigarette Packs Per Day: 1 Cigarettes Per Day: 20.0 Years Smoked: quit cigaretters 8 years ago, once/month cigars & chewing tobacco e-Cigarette/Vaping Use: Currently Using Second Hand Smoke Exposure: No Substance Use Type: Opiates service: Yes Current occupational status: employed 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 Cognitive needs: No Hearing needs: No Vision needs: No Review of Systems Const All systems reviewed & are unremarkable except as noted in HPI and below Physical Exam Vital Signs: Last Vital Signs Pulse 80 02/26/24 12:08 BP 140/80 H 02/26/24 12:08 Pulse Ox 97 02/26/24 12:08 Oxygen Delivery Method Room Air 02/26/24 12:08 BMI result Body Mass Index 32.2 Const General: no acute distress; No comfortable Nutritional Appearance: overweight Orientation/consciousness: patient oriented x3 Resp Effort & Inspection: normal respiratory effort and able to speak in complete sentences Auscultation: no crackles, no rales, rhonchi lower bilaterally and wheezes lower bilaterally Cardio Rhythm: abnormal rhythm regularly irregular Heart sounds: Murmur heart sound present continuous Bruits: no abdominal aortic bruits and no carotid bruits GI Inspection: Yes distended Palpation (GI): No Abdominal aortic bruit present, Soft to palpation and Tenderness to palpation present (GI) periumbilically Auscultation: Hyperactive bowel sounds present Rectal Exam - Male: Yes deferred Neuro General: patient oriented x3 Extrem Right lower extremity: lower leg Details: tenderness and pitting edema Details: 3+ Left lower extremity: lower leg Details: tenderness and pitting edema; no erythema Assessment & Plan Assessment & Plan (1) Abdominal distention: Comment: Advised Patient to go to Emergency room for further evaluation and treatment. Pt does admit to drinking heavily. Code(s): R14.0 - Abdominal distension (gaseous) (2) Peripheral edema: Code(s): R60.0 - Localized edema Plan: Sent to Emergency room (3) Left leg pain: Code(s): M79.605 - Pain in left leg Plan: sent to Emergency room. Plan Sent to emergency room. Coding Level of Care Code Est Pt Level 3 (40301) Diagnoses Abdominal distention R14.0 Peripheral edema R60.0 Left leg pain M79.605 Time Spent (min) 15
[2024-02-26 12:08] VITALS: BP 140/80; PULSE 80; O2SAT 97; BMI 32.2
== END 2024-02-26 13:01 | disposition home or self-care (01) ==
PROVIDERS: PCP Nurse Practitioner Family; Visit Provider Nurse Practitioner Family
DX: R14.0 Abdominal distension (gaseous) (principal); R60.0 Localized edema; M79.605 Pain in left leg
CPT/HCPCS: 99213

== ENCOUNTER 2024-02-26 12:53 | Emergency (ER) | payer OTHER, SELFPAY ==
--- NOTE | ~2024-02-26 | XR_ITS ---
EXAMINATION: XR CHEST CLINICAL INFORMATION: Cough and shortness of breath COMPARISON: None available. TECHNIQUE: 2 views of the chest were obtained. FINDINGS: Heart and mediastinum within normal limits. Pulmonary vascularity is minimally prominent. Lungs are hyper aerated with increased AP diameter and flattening of the hemidiaphragms. No consolidations or effusions. Bony structures are intact. XR/XR chest 2V IMPRESSION: Borderline vascularity. Hyperinflation.
--- NOTE | ~2024-02-26 | CT_ITS ---
EXAMINATION: CT ABDOMEN AND PELVIS WITHOUT CONTRAST CLINICAL INFORMATION: Abdominal pain, history of hernia repair COMPARISON: CT from 10/19/2023 TECHNIQUE: Multidetector volumetric imaging was performed from the superior aspect of the liver through the pubic symphysis. Sagittal and coronal reformatted images were obtained on the technologist's workstation. This CT examination was performed using dose optimization techniques as appropriate, variously including the following: *Automated exposure control *Adjustment of mA and/or kV according to patient size (this includes techniques or standardized protocols for targeted exams where dose is matched to indication/reason for exam; i.e. extremities or head) *Use of iterative reconstruction technique DLP: 787 mGy-cm FINDINGS: LUNG BASES: The visualized lung bases are unremarkable. LIVER, GALLBLADDER, AND BILIARY TREE: The liver is normal in size, shape, and attenuation. No focal hepatic lesion or biliary ductal dilatation is present. The gallbladder is unremarkable with no evidence of radiopaque gallstones, gallbladder wall thickening, or obvious pericholecystic inflammatory changes. PANCREAS: Unremarkable. SPLEEN: Unremarkable. ADRENAL GLANDS: Unremarkable. KIDNEYS AND URETERS: The kidneys are normal in size, shape, and attenuation. No hydronephrosis, hydroureter, or calculi seen. No perinephric stranding. BLADDER: Unremarkable. GASTROINTESTINAL TRACT: Possible small bowel loops are mildly prominent in size however there is no focal transition point to suggest small bowel obstruction. Scattered diverticula within the colon without evidence of acute diverticulitis ABDOMINAL WALL: Skin thickening and subcutaneous fat stranding is seen in the anterior abdominal wall and umbilicus which could represent underlying cellulitis/soft tissue infection. No drainable fluid collection/abscess seen. LYMPH NODES: Normal. VASCULAR: Unremarkable. PELVIC VISCERA: Unremarkable. OSSEOUS STRUCTURES: Degenerative changes of the lumbar spine. CT/CT abdomen pelvis wo IV con IMPRESSION: Skin thickening and subcutaneous fat stranding in the anterior abdominal wall and umbilicus which could represent underlying cellulitis/soft tissue infection. No drainable fluid collection/abscess seen.
--- NOTE | ~2024-02-26 | US_ITS ---
EXAMINATION: US VENOUS ULTRASOUND WITH DOPPLER LOWER EXTREMITY, LEFT CLINICAL INFORMATION: Tendons calf and inner thigh pain COMPARISON: None available. TECHNIQUE: Ultrasound of the deep veins is performed from the hip to the calf with compression sonography and color and pulse Doppler assessment. Spectral analysis with color-flow imaging is performed. FINDINGS: There is normal venous compression and respiratory variation and augmented flow. The visualized common femoral vein, superficial femoral vein, profunda femoral vein, popliteal vein, and the trifurcation region shows no evidence of deep venous thrombosis. Posterior tibial and peroneal veins are patent. If the patient's symptoms persist, followup ultrasound in 5 days 7 days might be of value to exclude proximal propagation from a non-visualized calf vein. Left calf subcutaneous edema noted. No Cox's cysts. US/US venous duplex LE LT IMPRESSION: No DVT demonstrated in the left lower extremity. Left calf edema.
[2024-02-26 12:56] VITALS: BP 154/104; PULSE 87; RESP 18; TEMP 37.1; O2SAT 98; BMI 32.2
--- NOTE | 2024-02-26 12:57 | ED.GENADULT ---
HPI - General Adult General Chief complaint: General Medical Stated complaint: retaining water in legs and abd Time Seen by Provider: 02/26/24 21:01 Source: patient, RN notes reviewed and old records reviewed Mode of arrival: ambulatory Limitations: no limitations History of Present Illness HPI narrative: 53-year-old male past medical history significant for alcohol abuse, anemia, hypertension, BPH presents for evaluation of leg swelling. Patient denies any history of CHF. He has had intermittent leg swelling over the last 6 months. His primary doctor has been treating him with intermittent diuretics with the patient is not on daily diuretics. Patient denies any chest pain, shortness of breath He also reports abdominal swelling and distention. Patient also reports that he has some itching to the lower abdominal wall Denies any fevers or chills Patient endorses drinking alcohol, excessive salt intake and ?my fiance is always making me drink tea. ? Related Data Home Medications ?Medication ?Instructions ?Recorded ?Confirmed oxycodone 5 mg tablet 5 mg PO BID PRN Pain 07/02/23 12/19/23 quetiapine 50 mg tablet 50 mg PO BEDTIME PRN Sleep 10/19/23 12/19/23 Previous Rx's ?Medication ?Instructions ?Recorded potassium chloride 20 mEq 20 meq PO DAILY 30 days #30 tabs 10/28/22 tablet,extended release paroxetine HCl 20 mg tablet 20 mg PO DAILY 90 days #90 tabs 03/09/23 insulin syringe-needle U-100 1 mL #30 ea 03/27/23 25 gauge x 5/8 (BD Insulin Syringe) chlorthalidone 25 mg tablet 25 mg PO DAILY #30 tabs 04/30/23 omega-3 acid ethyl esters 1 gram 1 cap PO BID #180 caps 06/04/23 capsule acetaminophen 500 mg tablet 500 mg PO Q6H PRN fever or pain 07/25/23 (Tylenol Extra Strength) #14 tabs lidocaine 5 % topical patch 1 patch topical DAILY PRN pain #30 07/25/23 (Lidoderm) ea fluticasone 250 mcg-salmeterol 50 1 inh inhalation BID 30 days #60 ea 08/13/23 mcg/dose blistr powdr for inhalation (Advair Diskus) terazosin 5 mg capsule 10 mg (2 x 5 mg) PO BEDTIME 90 10/01/23 days #180 caps omeprazole 40 mg capsule,delayed 40 mg PO DAILY #90 caps 11/01/23 release tiotropium bromide 1.25 2 puff inhalation DAILY #4 grams 12/09/23 mcg/actuation mist for inhalation (Spiriva Respimat) testosterone cypionate 200 mg/mL 80 mg (0.4 mL) subcut QWEEK 4 12/17/23 intramuscular oil weeks #2 mL (Depo-Testosterone) magnesium 250 mg tablet 250 mg PO BID #14 tabs 12/19/23 amlodipine 5 mg tablet 5 mg PO DAILY #90 tabs 01/01/24 nystatin 100,000 unit/mL oral 4 ml PO TID 10 days #120 mL 01/13/24 suspension albuterol sulfate 90 mcg/actuation 2 puff inhalation Q4-6H PRN 02/22/24 aerosol inhaler (ProAir HFA) shortness of breath or wheezing 30 days #8.5 grams albuterol sulfate 90 mcg/actuation 2 puff inhalation Q6H PRN 02/22/24 aerosol inhaler (Ventolin HFA) shortness of breath or wheezing 30 days #8.5 grams cephalexin 500 mg capsule 500 mg PO QID #28 caps 02/26/24 furosemide 20 mg tablet 20 mg PO DAILY #7 tabs 02/26/24 magnesium 250 mg tablet 250 mg PO DAILY #30 tabs 02/26/24 Allergies Allergy/AdvReac Type Severity Reaction Status Date / Time No Known Allergies Allergy Verified 02/26/24 13:01 [No Known Allergies*] Review of Systems Constitutional: Constitutional: Denies chills, Denies fever(s) and Denies headache(s) ENT: Denies vertigo and Denies headache(s) Cardiovascular: Cardiovascular: Denies chest pain, Reports pedal edema, Reports leg edema and Denies dyspnea Respiratory: Respiratory: Denies cough and Denies dyspnea Gastrointestinal: Gastrointestinal: Denies abdominal pain, Denies nausea and Denies vomiting Musculoskeletal: Musculoskeletal: Denies back pain Integumentary/Breasts: Skin/Breast: Reports erythema and Denies wounds Neurologic: Denies vertigo and Denies headache(s) Psychiatric: Psychiatric: Denies anxiety PMFSH Past Medical History Medical History Moderate persistent asthma Clubbing of nails Lumbar degenerative disc disease Right knee pain Primary osteoarthritis, right shoulder Right shoulder pain Cervicalgia Knee osteoarthritis 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 Daughter Alive and well Daughter Alive and well Brother Alive and well Social History Social History Household Members: None Housing: Apartment Do you presently have visiting nurse or other home services: No Alcohol intake: current Alcohol intake frequency: 3 or more drinks per day Alcohol type: beer Patient Tobacco Use Status: Current everyday Tobacco user Tobacco use type: Smokeless Tobacco Cigarette Packs Per Day: 1 Cigarettes Per Day: 20.0 Years Smoked: quit cigaretters 8 years ago, once/month cigars & chewing tobacco Smoked in Last 30 Days: Yes e-Cigarette/Vaping Use: Currently Using Second Hand Smoke Exposure: No Use of substances other than those prescribed or required for medical reasons: No Substance Use Type: Opiates Advance Directives: No Advance Directives Information Provided: Yes service: Yes Current occupational status: employed 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 Cognitive needs: No Hearing needs: No Vision needs: No Physical Exam ED Vital Signs: Vital Signs - 24 hr 02/26/24 12:56 02/26/24 20:24 02/26/24 21:04 Temperature 98.7 F 98.0 F 98.2 F Pulse Rate 87 102 H 102 H Respiratory Rate 18 20 18 Blood Pressure 154/104 H 180/90 H 171/92 H Pulse Oximetry 98 95 96 Oxygen Delivery Method Room Air Room Air Room Air BMI result Body Mass Index 32.2 Const General: healthy appearing, comfortable, no acute distress, alert and awake Nutritional Appearance: well nourished Orientation/consciousness: patient oriented x3 HENMT Head: Yes normocephalic and Yes atraumatic Eyes Eyelids: Yes eyelids normal Conjunctivae: conjunctivae normal Sclerae: sclerae normal Corneas: corneas normal Pupils: Equal, round and reactive pupils present EOM: EOMs intact bilaterally Neck Neck: Yes full ROM Resp Effort & Inspection: normal respiratory effort, able to speak in complete sentences, no audible wheezes and not labored Auscultation: clear to auscultation bilaterally Cardio Other: 2 to 3+ bilateral pitting edema to lower extremities bilaterally Rate: regular rate Rhythm: regular rhythm GI Other: Patient does have some erythema extending inferior to the umbilicus. Approximately 6 cm area. No fluctuance, induration, open wounds or purulence. Palpation (GI): Soft to palpation, not firm, nontender, no guarding and not rigid Skin General skin exam: elasticity normal Neuro General: patient oriented x3 Cranial nerves: Yes Equal, round and reactive pupils present and Yes Bilaterally intact EOM present Cognition (Neuro): normal cognition Extrem Other: Moving all extremities well without any obvious deformities Course Course Course Narrative: RME:?53 yo male hx of HTN, etoh abuse and withdrawal, asthma here from for increased swelling to both legs (l>r) and tense pain to his left calf and inner thigh x1 wk. No recent travel or long car rides. +sob however admits to asthma. no chest pain. +abd pain x3 days. no N/V/D/ flank pain, dysuria, hematuria. hx of hernia repair. labs, ct abd, LLE venous duplex ordered. Full HPI, ROS and PE to be performed by the primary ED provider. Medical Decision Making Medical Decision Making [facility] Narrative: 53-year-old male past medical history as documented above presents for evaluation of leg swelling. This is likely due to a combination of alcohol abuse, increased sodium intake as well as excess fluid consumption. I educated the patient on all this. He has chronic hypomagnesemia reports he has been out of his magnesium for at least 2 weeks, we will refill this. The patient will be given a dose of Lasix and will be given a 1 week course of Lasix daily. His CT scan shows concern for cellulitis of the abdominal wall which the patient does have clinical findings that we will treat with cephalexin q.i.d. x7 days. Given return precautions, vital signs are stable. Ultrasound negative for DVT Differential Diagnosis Differential Diagnoses: The differential diagnosis associated with the presentation includes Dependent edema CHF DVT Cellulitis Admission/Observation Consideration of admission/observation: Escalation of care including admission/observation considered Consider admission for CHF, however the patient's vital signs are stable, chest x-ray is clear Lab Data [facility] Lab Attestation statement: I reviewed the patient's lab results. No leukocytosis. The patient does have a mild anemia which is consistent with his baseline. Platelet count was within normal limits. Patient's sodium, potassium within normal limits, his BUN is slightly elevated to 31. Renal function within normal limits. The patient's magnesium is low at 1.3. 02/26/24 14:07 02/26/24 14:07 Labs: Lab Results 02/26/24 Range/Units 14:07 WBC 7.8 (4.8-10.8) X10*3/uL RBC 4.20 L (4.60-5.80) X10*6/uL Hgb 12.5 L (14.0-18.0) g/dl Hct 37.9 L (42.0-52.0) % MCV 90.2 (80.0-98.0) fL MCH 29.8 (27.0-33.0) pg MCHC 33.0 (31.0-36.0) g/dl RDW 15.6 (11.0-16.0) % Plt Count 198 D (160-400) X10*3/uL MPV 9.2 L (9.4-12.4) fL Immature Gran % (Auto) 0.5 H (0.0-0.4) % Neut % (Auto) 70.2 (45-73) % Lymph % (Auto) 15.1 L (20-40) % [place] % (Auto) 12.2 H (2-11) % Eos % (Auto) 1.7 (0-4) % Baso % (Auto) 0.3 (0-2) % Lymph # (Auto) 1.2 (1.2-4.9) X10*3/uL [place] # (Auto) 1.0 (0.1-1.2) X10*3/uL Eos # (Auto) 0.1 (0.0-0.4) X10*3/uL Baso # (Auto) 0.0 (0.0-0.2) X10*3/uL Abs Immat Gran (auto) 0.04 H (0.00-0.03) X10*3/uL Absolute Neuts (auto) 5.5 (2.0-8.3) x10*3/uL Absolute Nucleated RBC 0.000 (0.0-0.012) X10*3/uL Nucleated RBC % (auto) 0.0 (0.0-0.2) /100WBC Sodium 141 (135-145) mmol/L Potassium 3.3 (3.3-5.1) mmol/L Chloride 102 (96-108) mmol/L Carbon Dioxide 31 H (22-29) mmol/L Anion Gap 11 L (12-20) BUN 6 L (9-16) mg/dL Creatinine 0.76 (0.5-1.4) mg/dL Estim Creat Clear Calc 143.2 Estimated GFR > 60 Random Glucose 100 (60-115) mg/dL Calcium 9.0 D (8.4-10.2) mg/dL Magnesium 1.3 L* (1.6-2.6) mg/dL Total Bilirubin 0.6 (0.0-1.0) mg/dL AST 29 (5-37) U/L ALT 22 (0-40) U/L Alkaline Phosphatase 87 (39-117) U/L B-Natriuretic Peptide 44 (<100) pg/mL Total Protein 6.8 (6.5-8.0) g/dL Albumin 3.6 (3.5-5.0) g/dL Lipase 9 (8-78) U/L Independent Interpretation I performed an independent interpretation of an: Plain X-Ray (No focal infiltrates) Radiology Impression Discussion of test interpretation with radiology: I have reviewed the radiologist's reading. Radiologist Impression: Borderline vascular congestion Discharge Plan Discharge Clinical Impression: Dependent edema, Hypomagnesemia, Abdominal wall cellulitis Patient Disposition: Home, Self-Care Instructions: Cellulitis (ED), Leg Edema (ED), Hypomagnesemia (ED) Additional Instructions: Your workup in the ER today was significant for a low magnesium of 1.3. Your CT scan of your abdomen pelvis showed a skin infection. Take the antibiotics 4 times daily for this Take Lasix 20 mg daily for the next week Follow-up with your primary doctor for repeat labs after this Avoid excessive consumption of salt, alcohol and decreased tea consumption Prescriptions: New furosemide 20 mg tablet 20 mg PO DAILY Qty: 7 0RF magnesium 250 mg tablet 250 mg PO DAILY Qty: 30 0RF cephalexin 500 mg capsule 500 mg PO QID Qty: 28 0RF No Action potassium chloride 20 mEq tablet extended release 20 meq PO DAILY 30 Days Qty: 30 3RF paroxetine HCl 20 mg tablet 20 mg PO DAILY 90 Days Qty: 90 0RF chlorthalidone 25 mg tablet 25 mg PO DAILY Qty: 30 3RF omega-3 acid ethyl esters 1 gram capsule 1 cap PO BID Qty: 180 1RF fluticasone propion-salmeterol [Advair Diskus] 250-50 mcg/dose blister with device 1 inh inhalation BID 30 Days Qty: 60 2RF terazosin 5 mg capsule 10 mg PO BEDTIME 90 Days Qty: 180 1RF omeprazole 40 mg capsule,delayed release(DR/EC) 40 mg PO DAILY Qty: 90 1RF Spiriva Respimat 1.25 mcg/actuation mist 2 puff INHALATION DAILY Qty: 4 1RF amlodipine 5 mg tablet 5 mg PO DAILY Qty: 90 0RF Rx Instructions: Schedule next PCP appt for future refills nystatin 100,000 unit/mL suspension 4 ml PO TID 10 Days Qty: 120 0RF Rx Instructions: swish and swallow albuterol sulfate [ProAir HFA] 90 mcg/actuation HFA aerosol inhaler 2 puff inhalation Q4-6H PRN (Reason: shortness of breath or wheezing) 30 Days Qty: 8.5 3RF albuterol sulfate [Ventolin HFA] 90 mcg/actuation HFA aerosol inhaler 2 puff inhalation Q6H PRN (Reason: shortness of breath or wheezing) 30 Days Qty: 8.5 3RF quetiapine 50 mg tablet 50 mg PO BEDTIME PRN (Reason: Sleep) acetaminophen [Tylenol Extra Strength] 500 mg tablet 500 mg PO Q6H PRN (Reason: fever or pain) Qty: 14 0RF lidocaine [Lidoderm] 5 % adhesive patch,medicated 1 patch topical DAILY MDD remove after 12 hours PRN (Reason: pain) Qty: 30 0RF Rx Instructions: leave on most painful area for up to 12 hrs (DME) BD Insulin Syringe 1 mL 25 gauge x 5/8 syringe See Rx Instructions .MEDSUPPLY Qty: 30 0RF Rx Instructions: As directed oxycodone 5 mg tablet 5 mg PO BID PRN (Reason: Pain) testosterone cypionate [Depo-Testosterone] 200 mg/mL oil 80 mg subcut QWEEK 28 Days Qty: 2 5RF magnesium 250 mg tablet 250 mg PO BID Qty: 14 0RF Print Language: Occitan
[2024-02-26 14:11] LABS: MANUAL DIFF FLAG NO
[2024-02-26 14:14] LABS: Basophils Percent Auto 0.3 % (0-2); Eosinophils Absolute Auto 0.1 X10*3/uL (0.0-0.4); Eosinophils Percent Auto 1.7 % (0-4); Hematocrit 37.9 % (42.0-52.0); Hemoglobin 12.5 g/dl (14.0-18.0); Imm Gran Abs Auto 0.04 X10*3/uL (0.00-0.03); Imm Gran Pct Auto 0.5 % (0.0-0.4); Lymphocytes Absolute Auto 1.2 X10*3/uL (1.2-4.9); Lymphocytes Percent Auto 15.1 % (20-40); Mean Corpuscular Hemoglobin 29.8 pg (27.0-33.0); Mean Corpuscular Volume 90.2 fL (80.0-98.0); Mean Platelet Volume 9.2 fL (9.4-12.4); Monocytes Percent Auto 12.2 % (2-11); Neutrophils Absolute Auto 5.5 x10*3/uL (2.0-8.3); Neutrophils Percent Auto 70.2 % (45-73); Platelet Count 198 X10*3/uL (160-400); Red Cell Distribution Width 15.6 % (11.0-16.0); White Blood Count 7.8 X10*3/uL (4.8-10.8)
[2024-02-26 14:36] LABS: B Type Natriuretic Peptide 44 pg/mL (<100)
[2024-02-26 14:45] LABS: Alanine Aminotransferase 22 U/L (0-40); Albumin Level 3.6 g/dL (3.5-5.0); Alkaline Phosphatase 87 U/L (39-117); Anion Gap 11 (12-20); Aspartate Amino Transferase 29 U/L (5-37); Bilirubin Total 0.6 mg/dL (0.0-1.0); Blood Urea Nitrogen 6 mg/dL (9-16); Carbon Dioxide 31 mmol/L (22-29); Chloride 102 mmol/L (96-108); Creatinine Clr Calc Pharmacy 143.2; Estimated Glomerular Filt Rate > 60; Glucose Random 100 mg/dL (60-115); Lipase 9 U/L (8-78); Potassium 3.3 mmol/L (3.3-5.1); Sodium 141 mmol/L (135-145); Total Protein 6.8 g/dL (6.5-8.0)
[2024-02-26 14:46] LABS: Magnesium 1.3 mg/dL (1.6-2.6)
[2024-02-26 20:24] VITALS: BP 180/90; PULSE 102; RESP 20; TEMP 36.7; O2SAT 95
--- NOTE | 2024-02-26 20:27 | PC.NURSE ---
pt abd firm distended and tender 4/10. mireya lower leg swelling noted left greater than right. pt states he is only on bp medications. pt also states his urine has been clear and now has pink tinge to it the last two voids.
[2024-02-26 21:04] VITALS: BP 171/92; PULSE 102; RESP 18; TEMP 36.8; O2SAT 96
[2024-02-26] MEDS: Magnesium Sulfate/H2O 2 GM/50 ML PIGGYBACK IV (21:21)
[2024-02-26 21:22] VITALS: BP 171/92
[2024-02-26] MEDS: cephALEXin 500 MG CAPSULE PO (21:22)
[2024-02-26] MEDS: Furosemide 40 MG/4 ML VIAL IVPUSH (21:22)
[2024-02-26 22:32] VITALS: BP 168/88; PULSE 98; RESP 18; TEMP 36.8; O2SAT 98
== END 2024-02-26 22:36 | disposition home or self-care (01) ==
PROVIDERS: Physician Assistant Medical; Emergency Provider Emergency Medicine Emergency Medical Services; PCP Nurse Practitioner Family
DX: R60.0 Localized edema (principal); E83.42 Hypomagnesemia; L03.311 Cellulitis of abdominal wall; R06.02 Shortness of breath; N40.0 Benign prostatic hyperplasia without lower urinary tract symptoms; R05.9 Cough, unspecified; M79.652 Pain in left thigh; Z79.899 Other long term (current) drug therapy; Z87.891 Personal history of nicotine dependence
CPT/HCPCS: 36415; 71046; 74176; 80053; 83690; 83735; 83880; 85025; 93971; 96365; 96375; 99284; J1940; J3475

== ENCOUNTER 2024-03-10 13:54 | Outpatient (AMB) | payer OTHER, SELFPAY ==
[2024-03-10 13:59] VITALS: BP 150/90; PULSE 116; TEMP 36.3; O2SAT 95; BMI 31.0
--- NOTE | 2024-03-10 13:59 | MHC.OFFWIV ---
Intake Vital Signs 03/10/24 13:59 03/10/24 15:08 Height 6 ft 1 in Weight 235 lb BMI 31.0 BP 150/90 H Blood Pressure Location Lt brachial Position Sitting Pulse 116 H 94 Pulse Source Pulse Oximeter Pulse Oximeter Temp 97.4 F Temp Source Temporal Artery Scan Pulse Oximetry (%) 95 Oxygen Delivery Method Room Air Intake Visit Reasons: EP Water retention Intake Note: pt is here today for water retention started 1 week ago Patient Tobacco Use Status: Current everyday Tobacco user Allergies No Known Allergies [No Known Allergies*] Allergy (Verified 03/10/24 14:26) Medication List - Last Reconciled 03/10/24 by LUCIANO Wright acetaminophen (Tylenol Extra Strength) 500 mg PO Q6H PRN albuterol sulfate 90 mcg/actuation (ProAir HFA) 2 puffs inhalation Q4-6H PRN 30 days albuterol sulfate 90 mcg/actuation (Ventolin HFA) 2 puffs inhalation Q6H PRN 30 days amlodipine 5 mg PO DAILY buprenorphine HCl mg sublingual cephalexin 500 mg PO QID chlorthalidone 25 mg PO DAILY diazepam mg PO fluticasone propion-salmeterol 250-50 mcg/dose (Advair Diskus) 1 inh inhalation BID 30 days furosemide 20 mg PO DAILY insulin syringe-needle U-100 (BD Insulin Syringe) As directed lidocaine 5% (Lidoderm) 1 patch topical DAILY PRN MDD remove after 12 hours magnesium 250 mg PO DAILY nystatin 4 mL PO TID 10 days omega-3 acid ethyl esters 1 cap PO BID omeprazole 40 mg PO DAILY oxycodone 5 mg PO BID PRN paroxetine HCl 20 mg PO DAILY 90 days potassium chloride ER 20 mEq PO DAILY 30 days quetiapine 50 mg PO BEDTIME PRN terazosin 10 mg (2 x 5 mg) PO BEDTIME 90 days testosterone cypionate (Depo-Testosterone) 80 mg (0.4 mL) subcut QWEEK 4 weeks tiotropium bromide 1.25 mcg/actuation (Spiriva Respimat) 2 puffs inhalation DAILY Do you need a note to return to daycare/school/sports/work: No HPI HPI Comments History of Present Illness Details Patient is a 53-year-old male in today for a medication refill and sick visit. He is [id number] male past medical history significant for alcohol abuse, anemia, hypertension, BPH presents for evaluation of leg swelling. Patient denies any history of CHF. He has had intermittent leg swelling over the last 6 months. Patient was seen in the emergency room 2 weeks prior to this appointment for leg pain, abdominal pain, and swelling of his lower extremities. Patient had ultrasound which demonstrated no DVT. He had CT scan which demonstrated cellulitis of the abdominal wall was given antibiotics. Patient was sent home with furosemide 20 mg x7 days and cephalexin x7 days. Patient arrives today stating that he needs medication refills. He also states that the swelling in his lower extremities has decreased but has not gone back down to baseline. Patient denies chest pain, shortness a breath, nausea, vomiting, diarrhea. Patient denies leg pain. 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 Daughter Alive and well Daughter Alive and well Brother Alive and well Social History Household Members: None Housing: Apartment Do you presently have visiting nurse or other home services: No Alcohol intake: current Alcohol intake frequency: 3 or more drinks per day Alcohol type: beer Patient Tobacco Use Status: Current everyday Tobacco user Tobacco use type: Smokeless Tobacco Cigarette Packs Per Day: 1 Cigarettes Per Day: 20.0 Years Smoked: quit cigaretters 8 years ago, once/month cigars & chewing tobacco e-Cigarette/Vaping Use: Currently Using Second Hand Smoke Exposure: No Substance Use Type: Opiates service: Yes Current occupational status: employed 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 Cognitive needs: No Hearing needs: No Vision needs: No Review of Systems Const All systems reviewed & are unremarkable except as noted in HPI and below ENT Denies dizziness Card Denies chest pain and Denies dyspnea Resp Denies dyspnea GI Denies diarrhea, Denies nausea and Denies vomiting Neuro Denies dizziness Physical Exam Vital Signs: Last Vital Signs Temp 97.4 F 03/10/24 13:59 Pulse 116 H 03/10/24 13:59 BP 150/90 H 03/10/24 13:59 Pulse Ox 95 03/10/24 13:59 Oxygen Delivery Method Room Air 03/10/24 13:59 BMI result Body Mass Index 31.0 Patient's heart rate went down to 90 after sitting for 5 mins. Const Other: Appearance: Alert.? Oriented X3.? No acute distress.? Head: Normocephalic, atraumatic, ?Neck: Normal inspection.? Neck supple.? CVS: Normal heart rate and rhythm.? Pulses normal.? Respiratory: No respiratory distress.? Breath sounds normal.? Abdomen: Slight distention and nontender.? Skin: Skin warm and dry.? Normal skin color.? Extremities: + 2 lower extremity edema.? No calf ttp. Back: No midline tenderness, no C-spine tenderness, full range of motion, no CVA tenderness bilaterally Neuro: Oriented X 3.? No motor deficit.? No sensory deficit. CN 2-12 intact Assessment & Plan Assessment & Plan (1) Bilateral lower extremity edema: Comment: Patient will be given refill of furosemide for the next 2 weeks. Patient has been educated on signs of worsening symptoms and when to report back to the walk-in or when to present to the ED. Code(s): R60.0 - Localized edema Plan: Take your medications as prescribed. If you were prescribed antibiotics today, it is important that you take your medication to their entirety, do not skip any doses, do not finish them early. Follow-up with your primary care provider this week. Return to the emergency department with new or worsening symptoms. Such as fevers, chills, chest pain, shortness of breath, nausea, vomiting, dizziness, headache, vision changes, lethargy In case of emergency call 911 Plan Spoke with patient's PCP who is ordering labs Medications: Refilled furosemide 20 mg PO DAILY 14 tabs 0RF magnesium 250 mg PO DAILY 30 tabs 0RF potassium chloride ER 20 mEq PO DAILY 30 days 30 tabs 3RF Coding Level of Care Code Est Pt Level 3 (59660) Diagnoses Bilateral lower extremity edema R60.0 Time Spent (min) 31
[2024-03-10 15:08] VITALS: PULSE 94
== END 2024-03-10 15:43 | disposition home or self-care (01) ==
PROVIDERS: PCP Nurse Practitioner Family; Visit Provider Nurse Practitioner Primary Care
DX: R60.0 Localized edema (principal)
CPT/HCPCS: 99213

== ENCOUNTER 2024-03-30 13:08 | Outpatient (REF) | payer OTHER, SELFPAY ==
[2024-03-30 16:30] LABS: MANUAL DIFF FLAG NO
[2024-03-30 16:30] LABS: Appearance Urine Turbid; Color Urine Orange; Glucose Urine UA Negative (Negative); Leukocyte Esterase Urine Small (1+) (Negative); Nitrite Urine Positive (Negative); Specific Gravity - Urine >= 1.030 (1.005-1.025); UMIC TRIGGER UACC YES; Urine Blood Negative (Negative); Urine Ketones Trace mg/dL (Negative); Urine Protein 100 (2+) mg/dL (Neg-Trace)
[2024-03-30 16:33] LABS: Basophils Percent Auto 0.4 % (0-2); Eosinophils Absolute Auto 0.1 X10*3/uL (0.0-0.4); Eosinophils Percent Auto 0.5 % (0-4); Hematocrit 39.6 % (42.0-52.0); Hemoglobin 13.1 g/dl (14.0-18.0); Imm Gran Abs Auto 0.07 X10*3/uL (0.00-0.03); Imm Gran Pct Auto 0.7 % (0.0-0.4); Lymphocytes Absolute Auto 1.1 X10*3/uL (1.2-4.9); Lymphocytes Percent Auto 11.3 % (20-40); Mean Corpuscular HGB Conc 33.1 g/dl (31.0-36.0); Mean Corpuscular Volume 87.6 fL (80.0-98.0); Mean Platelet Volume 10.3 fL (9.4-12.4); Monocytes Absolute Auto 1.2 X10*3/uL (0.1-1.2); Monocytes Percent Auto 12.1 % (2-11); Neutrophils Absolute Auto 7.4 x10*3/uL (2.0-8.3); Platelet Count 200 X10*3/uL (160-400); Red Blood Count 4.52 X10*6/uL (4.60-5.80); Red Cell Distribution Width 16.3 % (11.0-16.0); White Blood Count 9.9 X10*3/uL (4.8-10.8)
[2024-03-30 16:37] LABS: Bacteria Urine None Seen (None Seen); RBC Urine 0-2 /HPF (0-2); Squamous Epithelial Cell Urine 0-2 /HPF (0-2); UACC Culture Trigger YES; WBC Urine 0-5 /HPF (0-5)
[2024-03-30 17:23] LABS: PSA,Total (Free>4and<10) 0.69 ng/mL (0.00-4.00)
[2024-03-30 17:28] LABS: TSH reflex Free T4 2.66 uIU/mL (0.32-4.0)
[2024-03-30 17:30] LABS: Alanine Aminotransferase 23 U/L (0-40); Albumin Level 3.8 g/dL (3.5-5.0); Alkaline Phosphatase 98 U/L (39-117); Anion Gap 16 (12-20); Aspartate Amino Transferase 28 U/L (5-37); Bilirubin Total 1.4 mg/dL (0.0-1.0); Blood Urea Nitrogen 6 mg/dL (9-16); Calcium 9.2 mg/dL (8.4-10.2); Carbon Dioxide 25 mmol/L (22-29); Chloride 100 mmol/L (96-108); Estimated Glomerular Filt Rate > 60; Glucose Random 163 mg/dL (60-115); Potassium 3.2 mmol/L (3.3-5.1); Sodium 138 mmol/L (135-145); Total Protein 7.1 g/dL (6.5-8.0)
[2024-03-30 17:48] LABS: Magnesium 1.4 mg/dL (1.6-2.6)
[2024-04-03 15:33] LABS: Testosterone, Free 7.9 pg/mL (35.0-155.0); Testosterone, Total 98 ng/dL (250-1100)
== END 2024-03-30 13:09 | disposition home or self-care (01) ==
LOC: HO.HMGCLDS 13:08
PROVIDERS: PCP Nurse Practitioner Family; Referring Provider Urology; Visit Provider Nurse Practitioner Family
DX: N40.1 Benign prostatic hyperplasia with lower urinary tract symptoms (principal); E83.42 Hypomagnesemia; F10.10 Alcohol abuse, uncomplicated; E29.1 Testicular hypofunction; N13.8 Other obstructive and reflux uropathy; Z12.5 Encounter for screening for malignant neoplasm of prostate
CPT/HCPCS: 36415; 80053; 81001; 83735; 84153; 84402; 84403; 84443; 85025; 87086

== ENCOUNTER 2024-04-02 06:56 | Outpatient (AMB) | payer OTHER, SELFPAY ==
--- NOTE | 2024-04-02 07:50 | A.OFFPC_ITS ---
Intake Visit Reasons: Lab followup Android [phone] Allergies No Known Allergies [No Known Allergies*] Allergy (Verified 03/10/24 14:26) Medication List - Last Reconciled 04/02/24 by LUCIANO Acosta- acetaminophen (Tylenol Extra Strength) 500 mg PO Q6H PRN albuterol sulfate 90 mcg/actuation (ProAir HFA) 2 puffs inhalation Q4-6H PRN 30 days albuterol sulfate 90 mcg/actuation (Ventolin HFA) 2 puffs inhalation Q6H PRN 30 days amlodipine 5 mg PO DAILY buprenorphine HCl mg sublingual cephalexin 500 mg PO QID chlorthalidone 25 mg PO DAILY diazepam mg PO fluticasone propion-salmeterol 250-50 mcg/dose (Advair Diskus) 1 inh inhalation BID 30 days furosemide 20 mg PO DAILY insulin syringe-needle U-100 (BD Insulin Syringe) As directed lidocaine 5% (Lidoderm) 1 patch topical DAILY PRN MDD remove after 12 hours magnesium 250 mg PO DAILY magnesium oxide 400 mg PO DAILY nystatin 4 mL PO TID 10 days omega-3 acid ethyl esters 1 cap PO BID omeprazole 40 mg PO DAILY oxycodone 5 mg PO BID PRN paroxetine HCl 20 mg PO DAILY 90 days potassium chloride ER 20 mEq PO DAILY 30 days quetiapine 50 mg PO BEDTIME PRN terazosin 10 mg PO BEDTIME 90 days testosterone cypionate (Depo-Testosterone) 80 mg (0.4 mL) subcut QWEEK 4 weeks tiotropium bromide 1.25 mcg/actuation (Spiriva Respimat) 2 puffs inhalation DAILY Tobacco use date assessed: 05/01/23 Dental Screening Dental Screen Date: 05/01/23 HPI Lab followup Android [phone] HPI Details Pt reports intermittent swelling of his BLE and ascites. Recent CT of abdomen showed skin thickening and subcutaneous fat stranding in the anterior abdominal wall and umbilicus which could represent underlying cellulitis/soft ti ssue infection. No drainable fluid collection/abscess seen. Pt has a hx of alcohol abuse, he reports that he is drinking a little. He reports some shortness of breath especially with exertion. He is also describing ascites. Will order labs including BNP, chest XR, echo, and abdominal US. Pt has a hx of hypomagnesemia. He is taking magnesium daily. Denies fever, chills, and dizziness. Pt knows to go to the ER with any worsening symptoms. 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 Daughter Alive and well Daughter Alive and well Brother Alive and well Social History Household Members: None Housing: Apartment Do you presently have visiting nurse or other home services: No Alcohol intake: current Alcohol intake frequency: 3 or more drinks per day Alcohol type: beer Patient Tobacco Use Status: Current everyday Tobacco user Tobacco use type: Smokeless Tobacco Cigarette Packs Per Day: 1 Cigarettes Per Day: 20.0 Years Smoked: quit cigaretters 8 years ago, once/month cigars & chewing tobacco e-Cigarette/Vaping Use: Currently Using Second Hand Smoke Exposure: No Substance Use Type: Opiates service: Yes Current occupational status: employed 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 Cognitive needs: No Hearing needs: No Vision needs: No Questionnaire Thrive Questionnaire Date Thrive assessed: 10/20/23 Review of Systems Const Reports as per HPI Physical exam (Primary Care) Tobacco/Smoking Status: Tobacco use Status Tobacco use date assessed 05/01/23 04/02/24 07:51 Patient Tobacco Use Status Current everyday Tobacco 04/02/24 07:51 Tobacco use type Smokeless Tobacco 04/02/24 07:51 e-Cigarette/Vaping Use Currently Using 04/02/24 07:51 Thrive Assessment: Date of Thrive Assessment Date Thrive assessed 10/20/23 04/02/24 07:51 Const General: cooperative Orientation/consciousness: patient oriented x3 Neuro General: patient oriented x3 Psych Appearance: grossly normal Mental Status: mental status grossly normal Speech and movement: Clear speech present Affect: normal affect Attitude: cooperative Thought process: Normal thought process present Thought content: Normal thought content present Insight: Good insight present (Psych) Judgement: Good judgement present (Psych) Telehealth Telehealth Telehealth Platform: [employer] Location of provider rendering services: practice address Location of patient: other (pt is in [place] right now) Patient Identification confirmed using: Name, : Yes Telehealth method: video Patient verbally consented to treatment: Yes Patient verbally consented to billing insurance company: Yes Patient informed of any privacy concerns related to visit: Yes Minutes spent on Phone/Video with Pt.: 10 Assessment and Plan Assessment & Plan (1) Ascites: Code(s): R18.8 - Other ascites Plan: Labs and abdominal US ordered (2) Alcohol abuse: Code(s): F10.10 - Alcohol abuse, uncomplicated Plan: Labs, echo, and abdominal US ordered (3) Hypomagnesemia: Comment: Will refill patient's magnesium supplements. Code(s): E83.42 - Hypomagnesemia Plan: Labs ordered (4) SOB (shortness of breath): Code(s): R06.02 - Shortness of breath Plan: Chest XR ordered (5) Edema: Code(s): R60.9 - Edema, unspecified Plan: Labs and echo ordered Plan The patient agreed to the use of a claim review medical director for this encounter. Scribed for LUCIANO Gramajo-SAEED by Zehra iJmenez claim review medical director, on 04/02/2024 at 07:50 EST. Orders: Orders Magnesium Today E83.42 - Hypomagnesemia, F10.10 - Alcohol abuse, uncomplicated US abdomen complete Today R18.8 - Other ascites Complete Blood Count Auto Diff Today E83.42 - Hypomagnesemia, F10.10 - Alcohol abuse, uncomplicated Comprehensive Met. Panel Today E83.42 - Hypomagnesemia, F10.10 - Alcohol abuse, uncomplicated XR chest 2V Today R06.02 - Shortness of breath TSH reflex Free T4 Today E83.42 - Hypomagnesemia, F10.10 - Alcohol abuse, uncomplicated, R18.8 - Other ascites, R60.9 - Edema, unspecified UA CC w/rflx Micro + Cult Today E83.42 - Hypomagnesemia, F10.10 - Alcohol abuse, uncomplicated, R18.8 - Other ascites, R60.9 - Edema, unspecified B Type Natriuretic Peptide Today R60.9 - Edema, unspecified CA echo transthoracic complete Today F10.10 - Alcohol abuse, uncomplicated, R06.02 - Shortness of breath, R60.9 - Edema, unspecified Coding Level of Care Code Tele Est Pt Level 3 (92199) Diagnoses Ascites R18.8 Alcohol abuse F10.10 Hypomagnesemia E83.42 SOB (shortness of breath) R06.02 Edema R60.9
== END 2024-04-02 09:35 | disposition home or self-care (01) ==
LOC: HO.HMGC 06:56
PROVIDERS: PCP Nurse Practitioner Family; Visit Provider Nurse Practitioner Family
DX: R18.8 Other ascites (principal); F10.10 Alcohol abuse, uncomplicated; E83.42 Hypomagnesemia; R06.02 Shortness of breath; R60.9 Edema, unspecified
CPT/HCPCS: 99213

== ENCOUNTER 2024-04-09 08:58 | Outpatient (REF) | payer OTHER, SELFPAY ==
--- NOTE | ~2024-04-09 | US_ITS ---
EXAMINATION: US ABDOMEN LIMITED CLINICAL INFORMATION: Evaluation for ascites. COMPARISON: 02/26/2024 TECHNIQUE: Real-time imaging of the abdomen specifically to detect the presence or absence of ascites. FINDINGS: Scanning midline, right upper and left upper quadrant, right lower and left lower quadrant shows no evidence for ascites. US/US abdomen limited IMPRESSION: Unremarkable study. No ascites seen.
[2024-04-09 10:24] LABS: MANUAL DIFF FLAG NO
[2024-04-09 10:35] LABS: Basophils Percent Auto 0.7 % (0-2); Eosinophils Absolute Auto 0.2 X10*3/uL (0.0-0.4); Hematocrit 42.8 % (42.0-52.0); Hemoglobin 14.1 g/dl (14.0-18.0); Imm Gran Abs Auto 0.03 X10*3/uL (0.00-0.03); Imm Gran Pct Auto 0.5 % (0.0-0.4); Lymphocytes Absolute Auto 1.1 X10*3/uL (1.2-4.9); Lymphocytes Percent Auto 18.8 % (20-40); Mean Corpuscular HGB Conc 32.9 g/dl (31.0-36.0); Mean Corpuscular Hemoglobin 28.9 pg (27.0-33.0); Mean Corpuscular Volume 87.7 fL (80.0-98.0); Mean Platelet Volume 9.5 fL (9.4-12.4); Monocytes Absolute Auto 0.6 X10*3/uL (0.1-1.2); Monocytes Percent Auto 11.1 % (2-11); Neutrophils Absolute Auto 3.8 x10*3/uL (2.0-8.3); Neutrophils Percent Auto 65.9 % (45-73); Platelet Count 288 X10*3/uL (160-400); Red Blood Count 4.88 X10*6/uL (4.60-5.80); Red Cell Distribution Width 16.6 % (11.0-16.0); White Blood Count 5.8 X10*3/uL (4.8-10.8)
[2024-04-09 10:36] LABS: Appearance Urine Clear; Color Urine Yellow; Glucose Urine UA Negative (Negative); Leukocyte Esterase Urine Negative (Negative); Nitrite Urine Negative (Negative); Urine Blood Negative (Negative); Urine Ketones Trace mg/dL (Negative); Urine Protein Negative (Neg-Trace)
[2024-04-09 11:18] LABS: B Type Natriuretic Peptide 14 pg/mL (<100)
[2024-04-09 11:36] LABS: Alanine Aminotransferase 27 U/L (0-40); Albumin Level 3.8 g/dL (3.5-5.0); Alkaline Phosphatase 90 U/L (39-117); Anion Gap 18 (12-20); Aspartate Amino Transferase 55 U/L (5-37); Bilirubin Total 0.4 mg/dL (0.0-1.0); Blood Urea Nitrogen 8 mg/dL (9-16); Calcium 9.7 mg/dL (8.4-10.2); Carbon Dioxide 29 mmol/L (22-29); Chloride 96 mmol/L (96-108); Estimated Glomerular Filt Rate > 60; Glucose Random 162 mg/dL (60-115); Sodium 140 mmol/L (135-145); Total Protein 7.5 g/dL (6.5-8.0)
[2024-04-09 11:45] LABS: TSH reflex Free T4 5.48 uIU/mL (0.32-4.0)
[2024-04-09 11:52] LABS: Magnesium 1.4 mg/dL (1.6-2.6); Potassium 2.6 mmol/L (3.3-5.1)
[2024-04-09 12:27] LABS: Free T4 (Free Thyroxine) 0.84 ng/dL (0.71-1.85)
== END 2024-04-09 08:59 | disposition home or self-care (01) ==
LOC: HO.HMGCX 08:58
PROVIDERS: PCP Nurse Practitioner Family; Visit Provider Nurse Practitioner Family
DX: F10.10 Alcohol abuse, uncomplicated (principal); E83.42 Hypomagnesemia; R18.8 Other ascites; R60.9 Edema, unspecified
CPT/HCPCS: 36415; 76705; 80053; 81003; 83735; 83880; 84439; 84443; 85025

== ENCOUNTER 2024-04-10 14:54 | Emergency (ER) | payer OTHER, SELFPAY ==
[2024-04-10 15:02] VITALS: BP 167/102; PULSE 92; RESP 20; TEMP 36.7; O2SAT 94; BMI 31.1
--- NOTE | 2024-04-10 15:03 | ED.GENADULT ---
HPI - General Adult General Chief complaint: Recheck/Abnormal Lab/Rx Stated complaint: low potassium Time Seen by Provider: 04/10/24 16:34 Source: patient Mode of arrival: ambulatory Limitations: no limitations History of Present Illness ED Provider: Kiran Duque PA-C HPI narrative: 53-year-old male with history of alcohol use disorder, history of alcohol withdrawal, esophagitis, gastritis, hypothyroidism, anxiety, PTSD, GERD, SHAWANDA, pulmonary nodules, depression, osteoarthritis, asthma, active smoker who presents to the ER for evaluation of low electrolytes. Patient reports getting lab work done yesterday for evaluation of muscle cramping in his hands, lethargy, ongoing swelling in his lower extremity and abdominal distention. He states about 2 weeks ago he completed a 2 week course of Lasix for significant swelling in his lower extremities and abdomen. He was seen by his primary care doctor 1 week ago who ordered echo and abdominal ultrasound. Patient reports his magnesium and potassium were low. He is taking a magnesium supplement daily. He continues to drink however he denies daily drinking. He denies any diarrhea or vomiting. He has no longer on diuretics. MD complaint: Low magnesium and potassium Location: left, right and upper extremity Radiation: non-radiation Severity: moderate Quality: other (Cramping) Pain Consistency: intermittent Relieving factors: none Exacerbating factors: none Associated symptoms: other (Lower extremity swelling, weight gain, abdominal distention) Treatments prior to arrival: none Related Data Home Medications ?Medication ?Instructions ?Recorded ?Confirmed oxycodone 5 mg tablet 5 mg PO BID PRN Pain 07/02/23 04/02/24 quetiapine 50 mg tablet 50 mg PO BEDTIME PRN Sleep 10/19/23 04/02/24 buprenorphine HCl 2 mg sublingual mg sublingual 03/10/24 04/02/24 tablet diazepam 5 mg tablet mg PO 03/10/24 04/02/24 Previous Rx's ?Medication ?Instructions ?Recorded paroxetine HCl 20 mg tablet 20 mg PO DAILY 90 days #90 tabs 03/09/23 insulin syringe-needle U-100 1 mL #30 ea 03/27/23 25 gauge x 5/8 (BD Insulin Syringe) chlorthalidone 25 mg tablet 25 mg PO DAILY #30 tabs 04/30/23 omega-3 acid ethyl esters 1 gram 1 cap PO BID #180 caps 06/04/23 capsule acetaminophen 500 mg tablet 500 mg PO Q6H PRN fever or pain 07/25/23 (Tylenol Extra Strength) #14 tabs lidocaine 5 % topical patch 1 patch topical DAILY PRN pain #30 07/25/23 (Lidoderm) ea fluticasone 250 mcg-salmeterol 50 1 inh inhalation BID 30 days #60 ea 08/13/23 mcg/dose blistr powdr for inhalation (Advair Diskus) omeprazole 40 mg capsule,delayed 40 mg PO DAILY #90 caps 11/01/23 release tiotropium bromide 1.25 2 puff inhalation DAILY #4 grams 12/09/23 mcg/actuation mist for inhalation (Spiriva Respimat) testosterone cypionate 200 mg/mL 80 mg (0.4 mL) subcut QWEEK 4 12/17/23 intramuscular oil weeks #2 mL (Depo-Testosterone) nystatin 100,000 unit/mL oral 4 ml PO TID 10 days #120 mL 01/13/24 suspension albuterol sulfate 90 mcg/actuation 2 puff inhalation Q4-6H PRN 02/22/24 aerosol inhaler (ProAir HFA) shortness of breath or wheezing 30 days #8.5 grams albuterol sulfate 90 mcg/actuation 2 puff inhalation Q6H PRN 02/22/24 aerosol inhaler (Ventolin HFA) shortness of breath or wheezing 30 days #8.5 grams cephalexin 500 mg capsule 500 mg PO QID #28 caps 02/26/24 furosemide 20 mg tablet 20 mg PO DAILY #14 tabs 03/10/24 magnesium 250 mg tablet 250 mg PO DAILY #30 tabs 03/10/24 terazosin 10 mg capsule 10 mg PO BEDTIME 90 days #90 caps 03/30/24 magnesium oxide 400 mg PO DAILY #30 tabs 03/31/24 potassium chloride 20 mEq 20 meq PO DAILY 30 days #30 tabs 03/31/24 tablet,extended release amlodipine 5 mg tablet 5 mg PO DAILY #90 tabs 04/01/24 Allergies Allergy/AdvReac Type Severity Reaction Status Date / Time No Known Allergies Allergy Verified 04/10/24 15:05 [No Known Allergies*] Review of Systems Review of Systems: Yes all other systems are reviewed and are negative PMFSH Past Medical History Medical History Moderate persistent asthma Clubbing of nails Lumbar degenerative disc disease Right knee pain Primary osteoarthritis, right shoulder Right shoulder pain Cervicalgia Knee osteoarthritis 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 Daughter Alive and well Daughter Alive and well Brother Alive and well Social History Social History Household Members: None Housing: Apartment Do you presently have visiting nurse or other home services: No Alcohol intake: current Alcohol intake frequency: 3 or more drinks per day Alcohol type: beer Patient Tobacco Use Status: Current everyday Tobacco user Tobacco use type: Smokeless Tobacco Cigarette Packs Per Day: 1 Cigarettes Per Day: 20.0 Years Smoked: quit cigaretters 8 years ago, once/month cigars & chewing tobacco e-Cigarette/Vaping Use: Currently Using Second Hand Smoke Exposure: No Substance Use Type: Opiates Advance Directives: No Advance Directives Information Provided: No Do you have a plan to hurt others: No Plan service: Yes Current occupational status: employed 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 Cognitive needs: No Hearing needs: No Vision needs: No Physical Exam ED Vital Signs: Vital Signs - 24 hr 04/10/24 15:02 04/10/24 17:08 04/10/24 18:05 Temperature 98.0 F 98.4 F 97.7 F Pulse Rate 92 90 90 Respiratory Rate 20 12 12 Blood Pressure 167/102 H 150/99 H 161/97 H Pulse Oximetry 94 95 99 Oxygen Delivery Method Room Air Room Air Room Air BMI result Body Mass Index 31.1 Appearance: Alert. Oriented X3. No acute distress. Head: normocephalic, atraumatic. Eyes: Pupils equal, round and reactive to light. ENT: Pharynx normal. No tonsillar swelling or exudate. Neck: Normal inspection. Neck supple. CVS: Normal heart rate and rhythm. Pulses normal. Respiratory: No respiratory distress. Breath sounds normal. No wheezing or rhonchi. Abdomen: Softly distended and nontender. +BS x4 Skin: Skin warm and dry. Normal skin color. Normal skin turgor. No rashes. Extremities: 2+ lower extremity edema. No joint swelling. Neuro/psych: Oriented X 3. No motor deficit. No sensory deficit. CN II-XII intact. Normal speech and cognition. Course Course Course Narrative: This is a Rapid Medical Examination (RME) performed by Elizabeth Rosenthal PA-C in triage. Full HPI, ROS, assessment and treatment plan per primary provider in the Main ED. 53 yo male hx of here for eval of abnormal lab results. reports having blood work completed yesterday and was called by PCP today with critical K+ of 2.6 and mag of 1.4. advised to come to the ED for treatment. Patient recently completed course of diuretics approx 1 week ago. denies chest pain, palpitations, sob. Plan: labs, ekg ordered Medications Administered Discontinued Medications Generic Name Dose Route Start Last Admin Trade Name Wilfredoq PRN Reason Stop Dose Admin Potassium Chloride 10 meq in 100 mls @ 100 mls/hr 04/10/24 16:35 04/10/24 18:14 Potassium Chloride/H20 IV 04/10/24 17:34 Infused ONCE ONE Infusion Magnesium Sulfate 2 gm in 50 mls @ 150 mls/hr 04/10/24 16:35 04/10/24 19:09 Magnesium Sulfate/H2o IV 04/10/24 16:54 Infused ONCE ONE Infusion Potassium Chloride 60 meq 04/10/24 16:35 04/10/24 16:58 Potassium Chloride Er 20 Meq Tab.Er.Prt PO 04/10/24 16:36 60 meq ONCE ONE Administration Medical Decision Making Medical Decision Making MDM Narrative: 53-year-old male with history of alcohol use disorder, history of alcohol withdrawal, esophagitis, gastritis, hypothyroidism, anxiety, PTSD, GERD, SHAWANDA, pulmonary nodules, depression, osteoarthritis, asthma, active smoker who presents to the ER for evaluation of low electrolytes. Patient has a low potassium of 2.9, improved from 2.6 yesterday. Magnesium is 1.4. He was recently on diuretic which explains his losses. He has symptoms of muscle contractures and spasms in his hands. Patient was given oral and IV potassium as well as IV magnesium. Patient was monitored in the ER. No EKG changes. Repeat lab work was performed which shows improvement in his electrolytes. Additional p.o. potassium replacement was given to ensure he stays in a normal range. He has no longer on diuretics. He is advised to continue his magnesium supplementation. He will follow up with his primary care doctor, he is getting further workup for his edema and weight gain. Echo and abdominal ultrasound have been ordered. Encouraged to get repeat blood work last next week and refrain from alcohol. We discussed symptoms of electrolyte abnormalities that should prompt ER evaluation and he expressed understanding. He is stable for discharge home. Differential Diagnosis Differential Diagnoses: The differential diagnosis associated with the presentation includes Low electrolytes from diuresis, chronic alcohol abuse, GI losses Admission/Observation Consideration of admission/observation: Escalation of care including admission/observation considered Lab Data MDM Lab Attestation statement: I reviewed the patient's lab results. Hypomagnesemia, hypokalemia 04/10/24 15:24 04/10/24 18:49 Labs: Lab Results 04/10/24 04/10/24 Range/Units 15:24 18:49 WBC 9.7 (4.8-10.8) X10*3/uL RBC 4.83 (4.60-5.80) X10*6/uL Hgb 13.8 L (14.0-18.0) g/dl Hct 42.0 (42.0-52.0) % MCV 87.0 (80.0-98.0) fL MCH 28.6 (27.0-33.0) pg MCHC 32.9 (31.0-36.0) g/dl RDW 16.2 H (11.0-16.0) % Plt Count 264 (160-400) X10*3/uL MPV 9.4 (9.4-12.4) fL Immature Gran % (Auto) 0.4 (0.0-0.4) % Neut % (Auto) 76.5 H (45-73) % Lymph % (Auto) 10.8 L (20-40) % Person % (Auto) 10.7 (2-11) % Eos % (Auto) 1.2 (0-4) % Baso % (Auto) 0.4 (0-2) % Lymph # (Auto) 1.1 L (1.2-4.9) X10*3/uL Person # (Auto) 1.0 (0.1-1.2) X10*3/uL Eos # (Auto) 0.1 (0.0-0.4) X10*3/uL Baso # (Auto) 0.0 (0.0-0.2) X10*3/uL Abs Immat Gran (auto) 0.04 H (0.00-0.03) X10*3/uL Absolute Neuts (auto) 7.4 (2.0-8.3) x10*3/uL Absolute Nucleated RBC 0.000 (0.0-0.012) X10*3/uL Nucleated RBC % (auto) 0.0 (0.0-0.2) /100WBC Sodium 137 138 (135-145) mmol/L Potassium 2.9 L* 3.3 (3.3-5.1) mmol/L Chloride 95 L 93 L (96-108) mmol/L Carbon Dioxide 33 H 33 H (22-29) mmol/L Anion Gap 12 15 (12-20) BUN 10 10 (9-16) mg/dL Creatinine 0.88 0.85 (0.5-1.4) mg/dL Estim Creat Clear Calc 121.6 125.9 Estimated GFR > 60 > 60 Random Glucose 107 111 (60-115) mg/dL Calcium 9.5 9.8 (8.4-10.2) mg/dL Magnesium 1.3 L* 1.7 (1.6-2.6) mg/dL Total Bilirubin 0.7 (0.0-1.0) mg/dL AST 55 H (5-37) U/L ALT 28 (0-40) U/L Alkaline Phosphatase 90 (39-117) U/L Total Protein 7.4 (6.5-8.0) g/dL Albumin 3.8 (3.5-5.0) g/dL Lipase 15 (8-78) U/L Independent Interpretation I performed an independent interpretation of an: EKG Interpretation: EKG with sinus tachycardia, ventricular rate 102 beats per minute, normal QTC, normal [place] interval, no ST segment elevations or depressions. No U-waves present External Record Review External record reviewed: Inpatient record, Office record, Outpatient record, Prior outpatient labs and Prior outpatient radiology Prescription Management I considered prescription management with: Other (Potassium supplements) Chronic Conditions Patient?s care impacted by: Other (Alcohol use, edema, anxiety) Social Determinants Patient?s care significantly limited by Social Determinants of Health including: Alcoholism and drug addiction in family Critical Care Time Critical Care Time Critical Care Time: Yes Total Critical Care Time: 31 Attestation: I have personally provided critical care time exclusive of time spent on separately billable procedures. Time includes review of lab data, chart review, repeating lab work, reassessing patient and monitoring for potential decompensation. Intervention performed as documented. Discharge Plan Discharge Clinical Impression: Acute hypokalemia, Hypomagnesemia Patient Disposition: Home, Self-Care Instructions: Hypokalemia (ED), Hypomagnesemia (ED) Additional Instructions: Your labs show improvement in your potassium and magnesium after replacement today. Make sure to eat a well-balanced diet, this usually gives adequate vitamins and minerals. Recommend continuing your magnesium supplementation pills. You should not need oral potassium supplementation pills now that you are off of diuretic medication. Recommend getting her labs rechecked next week to make sure the electrolytes stable within normal limits. Do your best to refrain from drinking alcohol, this is known to make electrolyte abnormalities worse. If you develop new or worsening symptoms call 911 or come back to the ER for further evaluation. Prescriptions: No Action paroxetine HCl 20 mg tablet 20 mg PO DAILY 90 Days Qty: 90 0RF chlorthalidone 25 mg tablet 25 mg PO DAILY Qty: 30 3RF omega-3 acid ethyl esters 1 gram capsule 1 cap PO BID Qty: 180 1RF fluticasone propion-salmeterol [Advair Diskus] 250-50 mcg/dose blister with device 1 inh inhalation BID 30 Days Qty: 60 2RF omeprazole 40 mg capsule,delayed release(DR/EC) 40 mg PO DAILY Qty: 90 1RF Spiriva Respimat 1.25 mcg/actuation mist 2 puff INHALATION DAILY Qty: 4 1RF nystatin 100,000 unit/mL suspension 4 ml PO TID 10 Days Qty: 120 0RF Rx Instructions: swish and swallow albuterol sulfate [ProAir HFA] 90 mcg/actuation HFA aerosol inhaler 2 puff inhalation Q4-6H PRN (Reason: shortness of breath or wheezing) 30 Days Qty: 8.5 3RF albuterol sulfate [Ventolin HFA] 90 mcg/actuation HFA aerosol inhaler 2 puff inhalation Q6H PRN (Reason: shortness of breath or wheezing) 30 Days Qty: 8.5 3RF terazosin 10 mg capsule 10 mg PO BEDTIME 90 Days Qty: 90 1RF magnesium oxide 400 mg magnesium tablet 400 mg PO DAILY Qty: 30 2RF potassium chloride 20 mEq tablet extended release 20 meq PO DAILY 30 Days Qty: 30 3RF amlodipine 5 mg tablet 5 mg PO DAILY Qty: 90 0RF Rx Instructions: Schedule next PCP appt for future refills quetiapine 50 mg tablet 50 mg PO BEDTIME PRN (Reason: Sleep) acetaminophen [Tylenol Extra Strength] 500 mg tablet 500 mg PO Q6H PRN (Reason: fever or pain) Qty: 14 0RF lidocaine [Lidoderm] 5 % adhesive patch,medicated 1 patch topical DAILY MDD remove after 12 hours PRN (Reason: pain) Qty: 30 0RF Rx Instructions: leave on most painful area for up to 12 hrs cephalexin 500 mg capsule 500 mg PO QID Qty: 28 0RF diazepam 5 mg tablet PO buprenorphine HCl 2 mg tablet, sublingual sublingual magnesium 250 mg tablet 250 mg PO DAILY Qty: 30 0RF furosemide 20 mg tablet 20 mg PO DAILY Qty: 14 0RF (DME) BD Insulin Syringe 1 mL 25 gauge x 5/8 syringe See Rx Instructions .MEDSUPPLY Qty: 30 0RF Rx Instructions: As directed oxycodone 5 mg tablet 5 mg PO BID PRN (Reason: Pain) testosterone cypionate [Depo-Testosterone] 200 mg/mL oil 80 mg subcut QWEEK 28 Days Qty: 2 5RF Discharge Date/Time: 04/10/24 19:35 Print Language: Iraqi
--- NOTE | 2024-04-10 15:07 | ECG_ITS ---
Test Reason : HYPOKALEMIA Blood Pressure : / mmHG Vent. Rate : 102 BPM Atrial Rate : 102 BPM P-R Int : 156 ms QRS Dur : 082 ms QT Int : 372 ms P-R-T Axes : 050 030 028 degrees QTc Int : 484 ms Sinus tachycardia Otherwise normal ECG When compared with ECG of 19-OCT-2023 11:18, ST no longer depressed in Anterior leads Referred By: Dory Rosenthal Electronically Signed By:HENRY LORENZO
[2024-04-10 15:28] LABS: MANUAL DIFF FLAG NO
[2024-04-10 15:31] LABS: Basophils Percent Auto 0.4 % (0-2); Eosinophils Absolute Auto 0.1 X10*3/uL (0.0-0.4); Eosinophils Percent Auto 1.2 % (0-4); Hemoglobin 13.8 g/dl (14.0-18.0); Imm Gran Abs Auto 0.04 X10*3/uL (0.00-0.03); Imm Gran Pct Auto 0.4 % (0.0-0.4); Lymphocytes Absolute Auto 1.1 X10*3/uL (1.2-4.9); Lymphocytes Percent Auto 10.8 % (20-40); Mean Corpuscular HGB Conc 32.9 g/dl (31.0-36.0); Mean Corpuscular Hemoglobin 28.6 pg (27.0-33.0); Mean Platelet Volume 9.4 fL (9.4-12.4); Monocytes Percent Auto 10.7 % (2-11); Neutrophils Absolute Auto 7.4 x10*3/uL (2.0-8.3); Neutrophils Percent Auto 76.5 % (45-73); Platelet Count 264 X10*3/uL (160-400); Red Blood Count 4.83 X10*6/uL (4.60-5.80); Red Cell Distribution Width 16.2 % (11.0-16.0); White Blood Count 9.7 X10*3/uL (4.8-10.8)
[2024-04-10 15:51] LABS: Alanine Aminotransferase 28 U/L (0-40); Albumin Level 3.8 g/dL (3.5-5.0); Alkaline Phosphatase 90 U/L (39-117); Anion Gap 12 (12-20); Aspartate Amino Transferase 55 U/L (5-37); Bilirubin Total 0.7 mg/dL (0.0-1.0); Blood Urea Nitrogen 10 mg/dL (9-16); Calcium 9.5 mg/dL (8.4-10.2); Carbon Dioxide 33 mmol/L (22-29); Chloride 95 mmol/L (96-108); Creatinine Clr Calc Pharmacy 121.6; Estimated Glomerular Filt Rate > 60; Glucose Random 107 mg/dL (60-115); Lipase 15 U/L (8-78); Magnesium 1.3 mg/dL (1.6-2.6); Potassium 2.9 mmol/L (3.3-5.1); Sodium 137 mmol/L (135-145); Total Protein 7.4 g/dL (6.5-8.0)
[2024-04-10] MEDS: Potassium Chloride ER 20 MEQ TAB.ER.PRT 60 MEQ PO (16:58)
[2024-04-10] MEDS: Magnesium Sulfate/H2O 2 GM/50 ML PIGGYBACK IV (16:58)
[2024-04-10] MEDS: Potassium Chloride/H20 10 MEQ/100 ML PIGGYBACK 100 MEQ IV (16:58)
[2024-04-10 17:08] VITALS: BP 150/99; PULSE 90; RESP 12; TEMP 36.9; O2SAT 95
[2024-04-10 18:05] VITALS: BP 161/97; PULSE 90; RESP 12; TEMP 36.5; O2SAT 99
[2024-04-10 19:21] LABS: Anion Gap 15 (12-20); Blood Urea Nitrogen 10 mg/dL (9-16); Calcium 9.8 mg/dL (8.4-10.2); Carbon Dioxide 33 mmol/L (22-29); Chloride 93 mmol/L (96-108); Creatinine Clr Calc Pharmacy 125.9; Estimated Glomerular Filt Rate > 60; Glucose Random 111 mg/dL (60-115); Magnesium 1.7 mg/dL (1.6-2.6); Potassium 3.3 mmol/L (3.3-5.1); Sodium 138 mmol/L (135-145)
[2024-04-10] MEDS: Potassium Chloride ER 20 MEQ TAB.ER.PRT PO (19:33)
[2024-04-10 19:34] VITALS: BP 161/97; PULSE 90; RESP 12; TEMP 36.5; O2SAT 99
== END 2024-04-10 19:35 | disposition home or self-care (01) ==
PROVIDERS: Physician Assistant; Physician Assistant Medical; Emergency Provider Emergency Medicine Emergency Medical Services; PCP Nurse Practitioner Family
DX: E87.6 Hypokalemia (principal); E83.42 Hypomagnesemia; J45.40 Moderate persistent asthma, uncomplicated
CPT/HCPCS: 36415; 80048; 80053; 83690; 83735; 85025; 93005; 96365; 96375; 99284; 99285; J3475; J3480

== ENCOUNTER → 2024-04-10 15:07 | Outpatient (BNV) | payer OTHER, SELFPAY | PROVIDERS: Emergency Provider Emergency Medicine Emergency Medical Services; PCP Nurse Practitioner Family; Visit Provider Internal Medicine | DX: E87.6 Hypokalemia (principal); R00.0 Tachycardia, unspecified | CPT/HCPCS: 93010 ==

== ENCOUNTER → 2024-04-24 08:48 | Outpatient (REF) | payer OTHER, SELFPAY ==
--- NOTE | 2024-04-24 08:50 | CA_ITS ---
Transthoracic Echocardiogram Patient (Last, First, Middle): Guanako Mccann L Gender: Male Date of : 1970 Age: 53 Procedure Date: 04/24/2024 Procedure Type: Transthoracic Echocardiogram Location: OP Height: 185.42 cm Weight: 104.33 kg BSA: 2.28 m2 Heart Rate: bpm BP: 150 / 100 mmHg Finish Mender: TO Referring MD: Jose Owen [facility] Symptoms: R60.9 - Edema, unspecified Study Quality: Fair/Contrast ECG Rhythm: Sinus Conclusions: - The left ventricular systolic function is normal. The calculated ejection fraction is 55% by biplane method. - No obvious valvular pathology seen on this study. - There is mild dilatation of the ascending aorta measuring 4.20 cm. Findings Procedure Information Contrast agent, definity, is being given per protocol without apparent complications. Left Ventricle Normal left ventricular cavity size. There is normal left ventricular wall thickness. The left ventricular systolic function is normal. The calculated ejection fraction is 55% by biplane method. There is no evidence of regional wall motion abnormalities. Focal hypertrophy of the basal septum. Right Ventricle Normal right ventricular cavity size and systolic function. Atria Both atria are normal in size. Aortic Valve There is a normal trileaflet aortic valve. There is no aortic valve stenosis. There is no aortic valve regurgitation. Mitral Valve The mitral valve appears normal. There is no mitral valve regurgitation. There is no mitral valve stenosis. Pulmonic Valve The pulmonic valve is likely normal. Tricuspid Valve Normal tricuspid valve structure. There is trace tricuspid valve regurgitation. There is no evidence of pulmonary hypertension. Great Vessels There is mild dilatation of the ascending aorta measuring 4.20 cm. Venous The inferior vena cava is normal in size and collapses greater than 50% with inspiration. Pericardium/Pleural There is no evidence of pericardial effusion. Prior Study Comparison Changes noted compared to prior study dated: 07/10/2018. see comment on ascending aorta. Recommendations, Care & Conclusions No obvious valvular pathology seen on this study. Measurements 2D Linear Measurements IVSd: 1.27 0.6-0.9/0.6-1.0 cm LVIDd: 5.12 3.9-5.3/4.2-5.9 cm LVIDd Index: 2.25 2.4-3.2/2.2-3.1 cm/m2 LVIDs: 3.63 2.0-3.6 cm LVPWd: 0.81 0.7-1.1 cm LA Diam: 3.50 2.7-3.8/3.0-4.0 cm LAIDs Index: 1.54 1.5-2.3 cm/m2 LV Mass: 248.59 67-162/88-224 g LV Mass Index: 109.03 43-95/49-115 g/m2 LVOT Diam: 2.50 3.0+(-)1.3 cm 2D Systolic Function EF 4C: 57.00 >55% EF 2C: 56.50 >55% EF BiP: 55.40 >55% Mitral Valve MV Pk E: 0.57 MV PK A: 0.85 MV Decel Time: 169.00 E/A: 0.70 PHT: 49.00 MVA PHT: 4.49 Decel Wharton: 3.38 Aortic Valve AoV Pk Adithya: 1.65 AoV Mn Adithya: 1.07 AoV VTI: 0.26 AoV Pk Grad: 11.00 Aov Mn Grad: 5.00 GLORIA Cont.VTI: 4.13 LVOT LVOT Pk Adithya: 1.40 LVOT Mn Adithya: 0.89 LVOT VTI: 0.22 LVOT Pk Grad: 8.00 LVOT Mn Grad: 4.00 LVOT Diam: 2.50 LVOT Area: 4.91 Diastolic Function MV Pk E: 0.57 MV Pk A: 0.85 E/A: 0.70 Right Ventricle TAPSE (mm): 24.90 TVS' Adithya: 12.70 Tricuspid Valve RA Press: 3.00 Great Vessels Aorta Sinus of Valsalva: 4.04 2.0-3.[address] [place]: 3.45 1.7-3.4 cm Ao Asc: 4.20 2.1-3.4 cm Updated in Other Vendor System with Status of Final August Sherman MD electronically signed on 04/25/2024 12:53:56 PM with status of Final
== END ==
LOC: HO.CARD 08:48
PROVIDERS: PCP Nurse Practitioner Family; Visit Provider Nurse Practitioner Family
DX: R06.02 Shortness of breath (principal); R60.9 Edema, unspecified; F10.10 Alcohol abuse, uncomplicated
CPT/HCPCS: 93306; Q9957

== ENCOUNTER → 2024-04-24 08:50 | Outpatient (BNV) | payer OTHER, SELFPAY | PROVIDERS: PCP Nurse Practitioner Family; Visit Provider Internal Medicine | DX: I42.2 Other hypertrophic cardiomyopathy (principal); R60.9 Edema, unspecified | CPT/HCPCS: 93306 ==

== ENCOUNTER → 2024-05-18 07:29 | Day surgery (SDC) | payer OTHER, SELFPAY ==
--- NOTE | 2024-05-18 07:35 | MHC.SHP ---
Pre-Procedural Eval Section A - 24 Hr Update-Section A only Date of Service: 05/18/24 The patient is an INPATIENT: No The patient has been examined within 24 hours of the surgical procedure. The History & Physical has been completed within 30 days and I have reviewed it.: No Section B - Complete if H&P > 30 days Chief Complaint: gerd Allergies: Allergies Allergy/AdvReac Type Severity Reaction Status Date / Time No Known Allergies Allergy Verified 04/10/24 15:05 [No Known Allergies*] Plan I have reviewed the history and physical and performed a pertinent physical examination on my patient. No changes have occurred unless specified. Time Spent With Patient Time: Total time managing care of this patient today ____ minutes.
[2024-05-18 07:43] VITALS: BP 150/92; PULSE 95; RESP 18; TEMP 36.4; O2SAT 93
--- NOTE | 2024-05-18 07:44 | PC.NURSE ---
pt reports not completing any prep. pt also states he ate pizza and was drinking alcohol last night.dr smith and dr gilliland aware. plan is to cancel pt and have him reschedule.
== END ==
LOC: HO.SSS 07:29
PROVIDERS: PCP Nurse Practitioner Family; Visit Provider Internal Medicine Gastroenterology
DX: K21.9 Gastro-esophageal reflux disease without esophagitis (principal); Z53.8 Procedure and treatment not carried out for other reasons

== ENCOUNTER 2024-05-18 08:13 | Outpatient (REF) | payer OTHER, SELFPAY ==
[2024-05-18 10:16] LABS: MANUAL DIFF FLAG NO
[2024-05-18 10:28] LABS: Basophils Percent Auto 0.7 % (0-2); Eosinophils Absolute Auto 0.2 X10*3/uL (0.0-0.4); Eosinophils Percent Auto 3.4 % (0-4); Hematocrit 40.9 % (42.0-52.0); Imm Gran Abs Auto 0.02 X10*3/uL (0.00-0.03); Imm Gran Pct Auto 0.4 % (0.0-0.4); Lymphocytes Absolute Auto 1.1 X10*3/uL (1.2-4.9); Lymphocytes Percent Auto 19.2 % (20-40); Mean Corpuscular HGB Conc 31.8 g/dl (31.0-36.0); Mean Corpuscular Hemoglobin 27.8 pg (27.0-33.0); Mean Corpuscular Volume 87.4 fL (80.0-98.0); Mean Platelet Volume 10.5 fL (9.4-12.4); Monocytes Absolute Auto 0.7 X10*3/uL (0.1-1.2); Neutrophils Absolute Auto 3.6 x10*3/uL (2.0-8.3); Neutrophils Percent Auto 64.3 % (45-73); Platelet Count 186 X10*3/uL (160-400); Red Blood Count 4.68 X10*6/uL (4.60-5.80); Red Cell Distribution Width 17.6 % (11.0-16.0); White Blood Count 5.5 X10*3/uL (4.8-10.8)
[2024-05-18 10:52] LABS: Alanine Aminotransferase 30 U/L (0-40); Albumin Level 3.8 g/dL (3.5-5.0); Alkaline Phosphatase 92 U/L (39-117); Anion Gap 14 (12-20); Aspartate Amino Transferase 45 U/L (5-37); Bilirubin Total 0.5 mg/dL (0.0-1.0); Blood Urea Nitrogen 8 mg/dL (9-16); Calcium 8.9 mg/dL (8.4-10.2); Carbon Dioxide 28 mmol/L (22-29); Chloride 100 mmol/L (96-108); Cholesterol 187 mg/dL (<200); Estimated Glomerular Filt Rate > 60; Glucose Random 134 mg/dL (60-115); HDL Cholesterol 39 mg/dL (>40); LDL Cholesterol Calculated 102 mg/dL (<100); Potassium 3.1 mmol/L (3.3-5.1); Sodium 139 mmol/L (135-145); Total Protein 7.1 g/dL (6.5-8.0); Triglycerides 234 mg/dL (<150)
[2024-05-18 11:10] LABS: Magnesium 1.3 mg/dL (1.6-2.6)
== END 2024-05-18 08:14 | disposition home or self-care (01) ==
LOC: HO.HMGCLDS 08:13
PROVIDERS: PCP Nurse Practitioner Family; Visit Provider Nurse Practitioner Family
DX: E83.42 Hypomagnesemia (principal); E78.5 Hyperlipidemia, unspecified
CPT/HCPCS: 36415; 80053; 80061; 83735; 85025

== ENCOUNTER 2024-06-01 13:44 | Outpatient (REF) | payer OTHER, SELFPAY ==
--- NOTE | ~2024-06-01 | XR_ITS ---
EXAMINATION: XR CHEST CLINICAL INFORMATION: Shortness of breath COMPARISON: 02/26/2024 TECHNIQUE: 2 views of the chest were obtained. FINDINGS: Heart size normal. Previously seen prominent pulmonary vascularity is no longer present. There is bibasilar atelectasis with otherwise clear lungs. No pleural effusions. Marked degenerative changes are seen in the right shoulder. XR/XR chest 2V IMPRESSION: No acute intrathoracic disease. Bibasilar atelectasis.
== END 2024-06-01 13:45 | disposition home or self-care (01) ==
LOC: HO.HMGCX 13:44
PROVIDERS: PCP Nurse Practitioner Family; Visit Provider Nurse Practitioner Family
DX: R06.02 Shortness of breath (principal)
CPT/HCPCS: 71046

== ENCOUNTER 2024-06-04 10:50 | Outpatient (AMB) | payer OTHER, SELFPAY ==
--- NOTE | 2024-06-04 10:59 | MHC.OFFVIS ---
Vital Signs 06/04/24 11:05 Height 6 ft 1 in Weight 230 lb BMI 30.3 BP 121/88 Blood Pressure Location Lt brachial Position Sitting Pulse 107 H Intake Visit Reasons: ov per dr. mohr Intake Note: Patient follow up per Dr. Mohr abdominal pain. Patient did not did the Colonoscopy due his ate before and not prep. Patient cc: abdominal bloating on and off, stomach still holding water, and denies any other GI issues. Garage Hand Required: No Accompanied by: Self / Same As Patient Allergies No Known Allergies [No Known Allergies*] Allergy (Verified 06/04/24 10:58) Medication List - Last Reconciled 06/04/24 by China Mohr MD acetaminophen (Tylenol Extra Strength) 500 mg PO Q6H PRN albuterol sulfate 90 mcg/actuation (ProAir HFA) 2 puffs inhalation Q4-6H PRN 30 days albuterol sulfate 90 mcg/actuation (Ventolin HFA) 2 puffs inhalation Q6H PRN 30 days amlodipine 5 mg PO DAILY atorvastatin 20 mg PO DAILY bisacodyl (Dulcolax (bisacodyl)) 20 mg (4 x 5 mg) PO ONCE 1 day buprenorphine HCl mg sublingual chlorthalidone 25 mg PO DAILY diazepam mg PO fluticasone propion-salmeterol 250-50 mcg/dose (Advair Diskus) 1 inh inhalation BID 30 days furosemide 20 mg PO DAILY insulin syringe-needle U-100 (BD Insulin Syringe) As directed lidocaine 5% (Lidoderm) 1 patch topical DAILY PRN MDD remove after 12 hours magnesium 250 mg PO DAILY magnesium oxide 400 mg PO DAILY nystatin 4 mL PO TID 10 days omega-3 acid ethyl esters 1 cap PO BID omeprazole 40 mg PO DAILY paroxetine HCl 20 mg PO DAILY 90 days polyethylene glycol 3350 (Miralax) 17 grams PO DAILY 1 day potassium chloride ER 20 mEq PO DAILY 30 days quetiapine 50 mg PO BEDTIME PRN terazosin 10 mg PO BEDTIME 90 days testosterone cypionate (Depo-Testosterone) 80 mg (0.4 mL) subcut QWEEK 4 weeks tiotropium bromide 1.25 mcg/actuation (Spiriva Respimat) 2 puffs inhalation DAILY HPI HPI ov per dr. mohr: Details: GI Clinic visit for this 54-year-old male for FU of elevated LFTs (felt to be related to ETOH intake) and a history of adenomatous colon polyps. Pt scheduled for a FU appt after hospitalization at [facility] [place] from 10/19 to 10/23/23: Hospital course: Patient was admitted for alcohol withdrawal, , persistent nausea vomiting, hypokalemia, hypomagnesemia, SENAIT and alcohol ketoacidosis: Patient was started on phenobarbital protocol, CT abdomen was done-showeddistal esophageal wall thickening, also added antiemetics and ppi , electrolyte replacements, hydration. Patient was seen by GI for for distal is a focal wall thickening: EGD was done subsequently which showed erosive esophagitis ,gastritis( possible cause of patient anemia) : Patient nausea vomiting seems to be improved significantly as well as abdominal pain improved, tolerating diet, patient was switched to p.o. PPIs. H&H is stable around 10.5. Hypokalemia resolved, hypomagnesemia improving -received p.o. magnesium and IV: Monitor magnesium level out patiently. Alcoholic ketoacidosis and SENAIT also improved with hydration, alcohol withdrawal improved with phenobarb. plan: continue ppi. Patient needs to monitor CBC and BMP and magnesium level out patiently. Follow up with GI outpatient. ? CHRONIC ILLNESSES:?Hypothyroidism, anxiety, PTSD, GERD with elevated LFTs likely due to ongoing ETOH use ? LABS IN [facility]: 03/23/20 AST 60, ALT 59, AP 37 (increased from AST 44, ALT 61 on 01/12/20), ? 03/29 liver fibrosis score 0.20, liver fibrosis stage F0, necroinflammatory score of 0.26. ?IMAGING STUDIES:?11/[address] SCAN SHOWED: Wall thickening of the distal thoracic esophagus and question small hiatal hernia. Enlarged fatty liver. Mild diverticulosis. Bilateral femoral head AVN. 07/[address] SCAN SHOWED:Diverticulosis of the colon. No evidence of diverticulitis. Question wall and fold thickening of the proximal stomach versus changes due to underdistention. AVN of the right femoral head. Stable right lower lobe pulmonary nodule. 01/18/21 abdominal ultrasound showed:Slightly increased liver echogenicity but no focal lesions seen. Slightly bulbous but patent middle portal vein on Doppler exam. Gallstones without wall thickening. ?The rest of the abdominal ultrasound is unremarkable. ENDOSCOPIC PROCEDURES; 12/12/23 EGD SHOWED: LARYNX: Changes suggestive of LPRD ESOPHAGUS: Small hiatal hernia and severe circumferential erosive esophagitis from 30 to 38 cms with thick yellow/white exudate - brushings were obtained to check for Eloise. STOMACH: Nodular gastritis and mild portal hypertensive gastropathy Plan: Switch to PO Omeprazole 20 mg twice daily once pt is tolerating PO diet. Repeat EGD in 3-4 months to confirm esophagitis has healed 06/2019 COLONOSCOPY SHOWED:Rectum ? Three 8-10 mm sessile polyps removed with hot and cold snare. Ano-rectum - Moderate internal hemorrhoids Colon preparation: Good after some irrigation Impression and Post Procedure Diagnosis: Three polyps removed Moderate diverticulosis seen in the rectum Moderate hemorrhoids on retroflexed exam. Plan: Repeat Colonoscopy interval based on path results ? in 3-5 years if polyps are adenomatous and 10 years if polyps are hyperplastic. ADDENDUM: BIOPSIES SHOWED: Rectum, polypectomies: - Tubular adenoma; no high grade dysplasia or carcinoma seen. - Hyperplastic mucosal polyp(s). Letter sent advising repeat colonoscopy in 3 years. Action set in [facility] TODAY'S VISIT Patient cc: abdominal bloating on and off, stomach still holding water, and denies any other GI issues. Patient was scheduled for an EGD and colon in May, and ate before the procedure and did not take the prep. (Pt states he thought he was scheduled for a pre-colon clinic visit) Has difficulty remembring his appointments due to past history of traumatic brain injury. Noted lower extremity edema for the past 3 weeks - edema is improving with diuretics. Continues to drink a couple of shots at night (per pt - not much) Pt retired recently and still has [facility] after it runs out. PAST VISITS: Pt presents to the office today for a follow up. Pt states he is feeling well and denies any concerns at this time. Went to rehab and trying to stay away from ETOH. 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 Denies heartburn or dysphagia Normal BMs without blood. Appetite is coming back since he stopped drinking. Went to [place] over the holidays with his exwife. Seeing pain management and has been trying to cut back on ETOH intake. Saw a new physician in Pain management and was prescribed oxycodone 10 mg three times a day for pain Tries not to eat too much starch - causes drowsiness and bloating. Heartburn controlled with Omeprazole - avoids tomato sauce and fried donuts Denies constipation. Scheduled to get injection in sciatic nerve for management of sciatica by Dr Garay at [facility] ? Has been staying home ? Last few months, he has noted intermittent bloating. ? Feels bloated when he takes starches - bread, rice, potatoes ? Heartburn is controlled with Omeprazole. ? BMs are regular and denies constipation. ? Has been trying to drink more water. ? Drinking 32 ounces of green tea a day and using 3 artificial sweetners in his coffee -advised to discontinue artificial sweeteners. ? Drinking 6 shots (2 drinks) at night. ? Lab results were reviewed with the patient. ? Has not had any recurrent abdominal pain. ? Has been? seen pain management and taking oxycodone for pain and has cut back on EtOH use. ? Has been changing his diet, excessive sugar and has been eating healthier with more fibre intake. ? ??PAST VISIT: ? taking 6 shots and a beer daily. ? Seen at [facility] [place] ED on 01/01/20 with abdominal pain - felt due to constipation and gas. ? Took Gas X and no carb diet and felt better. ? Taking 4 drinks of alcohol a day. ? He was advised repeat colonoscopy in 3 years. ? Has difficulty remembring his appointments due to past history of traumatic brain injury. 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 Daughter Alive and well Daughter Alive and well Brother Alive and well Social History Household Members: None Housing: Apartment Do you presently have visiting nurse or other home services: No Alcohol intake: current Alcohol intake frequency: 3 or more drinks per day Alcohol type: beer Patient Tobacco Use Status: Current everyday Tobacco user Tobacco use type: Smokeless Tobacco Cigarette Packs Per Day: 1 Cigarettes Per Day: 20.0 Years Smoked: quit cigaretters 8 years ago, once/month cigars & chewing tobacco e-Cigarette/Vaping Use: Currently Using Second Hand Smoke Exposure: No Substance Use Type: Opiates service: Yes Current occupational status: employed 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 Cognitive needs: No Hearing needs: No Vision needs: No Review of Systems Const All systems reviewed & are unremarkable except as noted in HPI and below Physical Exam Vital Signs: Last Vital Signs Pulse 107 H 06/04/24 11:05 BP 121/88 06/04/24 11:05 BMI result Body Mass Index 30.3 Const General: healthy appearing and no acute distress Nutritional Appearance: obese Orientation/consciousness: patient oriented x3 Limitations: no limitations HEENT Head: Yes normal to inspection Ears: hearing grossly normal bilaterally Eyes Sclerae: sclerae normal Pupils: Equal, round and reactive pupils present Neck Neck: Yes normal visual inspection Chest Chest palpation & inspection: normal inspection of the chest Resp Effort & Inspection: normal respiratory effort Auscultation: clear to auscultation bilaterally Cardio Palpation: normal PMI Rate: regular rate Rhythm: regular rhythm Heart sounds: S1 normal heart sound present, S2 normal heart sound present and no murmurs GI Palpation (GI): Soft to palpation, nontender and No hepatosplenomegaly present Auscultation: normal bowel sounds Rectal Exam - Male: Yes deferred Skin General skin exam: no rashes or lesions noted Neuro General: patient oriented x3, gait normal and moves all extremities Cranial nerves: Yes Equal, round and reactive pupils present Extrem General: Yes pedal edema (1+ pitting edema over both ankles) Psych Appearance: grossly normal Mental Status: mental status grossly normal Assessment & Plan Assessment & Plan (1) Ascites: Code(s): R18.8 - Other ascites Category: Medical (2) Anemia: Code(s): D64.9 - Anemia, unspecified Category: Medical (3) Alcohol abuse: Code(s): F10.10 - Alcohol abuse, uncomplicated Category: Social Hx (4) Abdominal bloating: Comment: Likely due to a change in diet or due to gallstones. Patient was advised to stop taking artificial sweeteners. Take simethicone chewable tablets p.r.n. if symptoms get worse. Code(s): R14.0 - Abdominal distension (gaseous) Category: Medical (5) Elevated transaminase level: Comment: elevated LFTs likely due to ongoing ETOH use. Past evaluation with Hepatitis B and C serologies was negative and ferritin and ceruloplasmin were normal. Code(s): R74.01 - Elevation of levels of liver transaminase levels Category: Medical (6) History of colon polyps: Comment: colonoscopy on 06/18/2019 which revealed moderate diverticulosis in the entire colon and three 8-10 mm polyps were removed from the rectum. Biopsies revealed tubular adenoma and hyperplastic polyp, advised repeat colonoscopy in 3 years. 2021 Code(s): Z86.010 - Personal history of colonic polyps Category: Medical (7) Gastroesophageal reflux disease: Comment: Continue omeprazole 40 mg once a day. EGD-Walden's surveillance, r/o peptic ulcer disease, nonulcer dyspepsia, esophagitis, other endoscopic findings to account for sx Code(s): K21.9 - Gastro-esophageal reflux disease without esophagitis Category: Medical Plan 54 YM with Hypothyroidism, anxiety, PTSD, GERD with elevated LFTs likely due to ongoing ETOH use. Past evaluation with Hepatitis B and C serologies was negative and ferritin and ceruloplasmin were normal. States he is unable to quit drinking since it helps him sleep at night. He has difficulty sleeping due to chronic shoulder and neck pains. He was advsied to cut back on his ETOH intake if possible and FU in 6 months with repeat LFTs.? Review of labs showed improvement in LFTs with weight loss suggesting LFTs elevation was likely associated with fatty liver. Patient had a colonoscopy on 06/18/2019 which revealed moderate diverticulosis in the entire colon and three 8-10 mm polyps were removed from the rectum. Biopsies revealed tubular adenoma and hyperplastic polyp. Patient was advised repeat colonoscopy in 3 years (due 06/2022). I will check labs for celiac sprue since pt notes abdominal bloating when he takes bread. 12/19/23 Went to rehab and trying to stay away from ETOH. 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 Denies heartburn or dysphagia Normal BMs without blood. Appetite is coming back since he stopped drinking. 06/04/24 Pt advised to reschedule appt for an EGD (FU of erosive esophagitis) and a colonoscopy (FU of colon polyps) - scheduled 11/20/24 FU appointment in 7 months. Orders: Orders Prothrombin Time INR 06/04/24 R74.01 - Elevation of levels of liver transaminase levels Liver Fibrosis Pnl 06/04/24 R74.01 - Elevation of levels of liver transaminase levels Medications: Changed From furosemide 20 mg PO DAILY 14 tabs 0RF R60.0 - Localized edema To furosemide 20 mg PO DAILY 30 days 30 tabs 1RF R60.0 - Localized edema Coding Level of Care Code Est Pt Level 4 (21153) Diagnoses Ascites R18.8 Anemia D64.9 Alcohol abuse F10.10 Abdominal bloating R14.0 Elevated transaminase level R74.01 History of colon polyps Z86.010 Gastroesophageal reflux disease K21.9 Time Spent (min) 24
[2024-06-04 11:05] VITALS: BP 121/88; PULSE 107; BMI 30.3
== END 2024-06-04 11:52 | disposition home or self-care (01) ==
PROVIDERS: PCP Nurse Practitioner Family; Visit Provider Internal Medicine Gastroenterology
DX: R18.8 Other ascites (principal); D64.9 Anemia, unspecified; F10.10 Alcohol abuse, uncomplicated; R14.0 Abdominal distension (gaseous); R74.01 Elevation of levels of liver transaminase levels; Z86.010 Personal history of colon polyps; K21.9 Gastro-esophageal reflux disease without esophagitis
CPT/HCPCS: 99214

== ENCOUNTER → 2024-06-04 10:50 | Outpatient (BNVA) | payer OTHER, SELFPAY | PROVIDERS: PCP Nurse Practitioner Family; Visit Provider Internal Medicine Gastroenterology | DX: F10.10 Alcohol abuse, uncomplicated (principal); D64.9 Anemia, unspecified; R18.8 Other ascites; R14.0 Abdominal distension (gaseous); R74.01 Elevation of levels of liver transaminase levels; K21.9 Gastro-esophageal reflux disease without esophagitis; Z86.010 Personal history of colon polyps | CPT/HCPCS: 99212 ==

== ENCOUNTER 2024-09-25 19:41 | Inpatient (IN) | payer OTHER, SELFPAY ==
--- NOTE | ~2024-09-25 | US_ITS ---
EXAMINATION: US TRIPLEX LOWER EXTREMITY, BILATERAL CLINICAL INFORMATION: Bilateral lower extremity edema. Evaluate for deep vein thrombosis. COMPARISON: Most recent left lower extremity venous ultrasound dated 02/26/2024. TECHNIQUE: Color-flow triplex imaging with spectral analysis and compression Doppler were performed on the bilateral lower extremities. FINDINGS: Respiratory variation, normal compression and augmented flow are noted throughout the bilateral lower extremities. The visualized common femoral vein, superficial femoral vein, profunda femoral vein, popliteal vein and midcalf peroneal and posterior tibial venous segments show no evidence of deep venous thrombosis bilaterally. There is no Cox's cyst. Bilateral lower leg subcutaneous edema. Left inguinal lymph nodes measuring up to 2.7 and 1.6 cm. US/US venous duplex LE BI IMPRESSION: 1. No evidence of deep venous thrombosis involving the bilateral lower extremities. 2. Bilateral lower legs subcutaneous edema. 3. Left inguinal lymph nodes measuring up to 2.7 and 1.6 cm. Electronically signed by: Lex Ramirez MD 09/26/2024 08:54 AM [facility]
--- NOTE | ~2024-09-25 | XR_ITS ---
EXAMINATION: XR TOES, LEFT CLINICAL INFORMATION: Pain, wound COMPARISON: None available. TECHNIQUE: 3 views of the left toes were obtained. FINDINGS: There are no fractures or dislocations. No joint effusion is identified. No bone, joint or soft tissue abnormality is demonstrated. XR/XR toe LT min 2V IMPRESSION: Unremarkable examination. Electronically signed by: Rc Govea DO 09/25/2024 11:54 PM EST
--- NOTE | ~2024-09-25 | XR_ITS ---
EXAMINATION: XR CHEST CLINICAL INFORMATION: Leg swelling. COMPARISON: Chest radiographs dated 06/01/2024. TECHNIQUE: Frontal view of the chest was obtained. FINDINGS: No significant abnormality is noted involving the heart, lungs, mediastinum, bony thorax or soft tissues. There are degenerative changes of the shoulders. XR/XR chest 1V IMPRESSION: Unremarkable examination. Electronically signed by: Jose Kee MD 09/25/2024 11:23 PM [facility]
[2024-09-25 19:52] VITALS: BP 131/96; PULSE 102; RESP 24; TEMP 37.2; O2SAT 94; BMI 29.8
--- NOTE | 2024-09-25 19:53 | ED_ITS ---
HPI - General Adult General Chief complaint: Psychiatric Symptoms Stated complaint: personal Time Seen by Provider: 09/25/24 21:59 Source: patient, RN notes reviewed and old records reviewed Mode of arrival: ambulatory Limitations: other (alcohol intoxication) History of Present Illness ED Provider: Ira HPI narrative: 54-year-old male with past medical history significant for edema, alcohol abuse, hypomagnesemia, PTSD, depression, hypertension, TBI The patient presents for evaluation of ?leg swelling and depression. Patient reports he has not been on his medications including psych medications for the last week He reports he has been drinking excessively he reports more than 1 pt per day of liquor His last drink was just prior to arrival. He reports his leg swelling is chronic and he is on chlorthalidone for edema He believes his legs have been more swollen for the last 3 days and his pain is 10/10 The patient also reports depression but without suicidal thoughts He is interested in detox Related Data Home Medications ?Medication ?Instructions ?Recorded ?Confirmed quetiapine 50 mg tablet 50 mg PO BEDTIME PRN Sleep 10/19/23 06/04/24 buprenorphine HCl 2 mg sublingual mg sublingual 03/10/24 06/04/24 tablet diazepam 5 mg tablet mg PO 03/10/24 06/04/24 atorvastatin 20 mg tablet 20 mg PO DAILY 06/04/24 06/04/24 Previous Rx's ?Medication ?Instructions ?Recorded paroxetine HCl 20 mg tablet 20 mg PO DAILY 90 days #90 tabs 03/09/23 insulin syringe-needle U-100 1 mL #30 ea 03/27/23 25 gauge x 5/8 (BD Insulin Syringe) omega-3 acid ethyl esters 1 gram 1 cap PO BID #180 caps 06/04/23 capsule acetaminophen 500 mg tablet 500 mg PO Q6H PRN fever or pain 07/25/23 (Tylenol Extra Strength) #14 tabs lidocaine 5 % topical patch 1 patch topical DAILY PRN pain #30 07/25/23 (Lidoderm) ea testosterone cypionate 200 mg/mL 80 mg (0.4 mL) subcut QWEEK 4 12/17/23 intramuscular oil weeks #2 mL (Depo-Testosterone) nystatin 100,000 unit/mL oral 4 ml PO TID 10 days #120 mL 01/13/24 suspension albuterol sulfate 90 mcg/actuation 2 puff inhalation Q4-6H PRN 02/22/24 aerosol inhaler (ProAir HFA) shortness of breath or wheezing 30 days #8.5 grams albuterol sulfate 90 mcg/actuation 2 puff inhalation Q6H PRN 02/22/24 aerosol inhaler (Ventolin HFA) shortness of breath or wheezing 30 days #8.5 grams magnesium 250 mg tablet 250 mg PO DAILY #30 tabs 03/10/24 terazosin 10 mg capsule 10 mg PO BEDTIME 90 days #90 caps 03/30/24 magnesium oxide 400 mg PO DAILY #30 tabs 03/31/24 potassium chloride 20 mEq 20 meq PO DAILY 30 days #30 tabs 03/31/24 tablet,extended release tiotropium bromide 1.25 2 puff inhalation DAILY #4 grams 05/07/24 mcg/actuation mist for inhalation (Spiriva Respimat) bisacodyl 5 mg tablet,delayed 20 mg (4 x 5 mg) PO ONCE colon 05/13/24 release (Dulcolax (bisacodyl)) prep 1 day #4 tabs polyethylene glycol 3350 17 17 g PO DAILY 1 day #238 grams 05/13/24 gram/dose oral powder (Miralax) fluticasone 250 mcg-salmeterol 50 1 inh inhalation BID 30 days #60 ea 06/04/24 mcg/dose blistr powdr for inhalation (Advair Diskus) furosemide 20 mg tablet 20 mg PO DAILY 30 days #30 tabs 06/04/24 amlodipine 5 mg tablet 5 mg PO DAILY #90 tabs 06/30/24 chlorthalidone 25 mg tablet 25 mg PO DAILY #30 tabs 07/05/24 omeprazole 40 mg capsule,delayed 40 mg PO DAILY #90 caps 07/30/24 release Allergies Allergy/AdvReac Type Severity Reaction Status Date / Time No Known Allergies Allergy Verified 09/25/24 19:57 [No Known Allergies*] Review of Systems 2 Constitutional: Constitutional: Denies body ache(s), Denies chills, Denies fever(s) and Denies headache(s) Eyes: Eyes: Denies blurry vision ENT: Denies headache(s) and Denies sore throat Cardiovascular: Cardiovascular: Denies chest pain, Reports pedal edema, Reports leg edema and Denies dyspnea Respiratory: Respiratory: Denies cough and Denies dyspnea Gastrointestinal: Gastrointestinal: Denies abdominal pain, Denies nausea and Denies vomiting Neurologic: Denies headache(s) Psychiatric: Psychiatric: Reports anxiety, Reports depression and Denies suicidal ideation [facility] Past Medical History Medical History (Updated 09/25/24 @ 23:51 by Alexsander Roth) Moderate persistent asthma Clubbing of nails Lumbar degenerative disc disease Right knee pain Primary osteoarthritis, right shoulder Right shoulder pain Cervicalgia Knee osteoarthritis 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 Daughter Alive and well Daughter Alive and well Brother Alive and well Social History Social History Household Members: None Housing: Apartment Do you presently have visiting nurse or other home services: No Alcohol intake: current Alcohol intake frequency: 3 or more drinks per day Alcohol type: beer Patient Tobacco Use Status: Current everyday Tobacco user Tobacco use type: Smokeless Tobacco Cigarette Packs Per Day: 1 Cigarettes Per Day: 20.0 Years Smoked: quit cigaretters 8 years ago, once/month cigars & chewing tobacco e-Cigarette/Vaping Use: Currently Using Second Hand Smoke Exposure: No Substance Use Type: Opiates Advance Directives: No Advance Directives Information Provided: No service: Yes Current occupational status: employed 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 Cognitive needs: No Hearing needs: No Vision needs: No Physical Exam ED Vital Signs: Vital Signs - 24 hr 09/25/24 19:52 09/25/24 22:50 Temperature 98.9 F 98.2 F Pulse Rate 102 H 101 H Respiratory Rate 24 H 16 Blood Pressure 131/96 H 118/66 Pulse Oximetry 94 98 Oxygen Delivery Method Room Air Room Air BMI result Body Mass Index 29.8 Const General: no acute distress, alert and awake Nutritional Appearance: well nourished Orientation/consciousness: patient oriented x3 HENMT Head: Yes normocephalic and Yes atraumatic Eyes Eyelids: Yes eyelids normal Conjunctivae: conjunctivae normal Sclerae: sclerae normal Corneas: corneas normal Pupils: Equal, round and reactive pupils present EOM: EOMs intact bilaterally Neck Neck: Yes full ROM Resp Effort & Inspection: normal respiratory effort, able to speak in complete sentences and not labored Cardio Other: +bilateral pitting edema to lower extremities. No calf tenderness Rate: regular rate Rhythm: regular rhythm GI Palpation (GI): Soft to palpation, not firm, nontender, no guarding and not rigid Skin Other: Small blister to the distal left 4th toe. No obvious surrounding erythema, purulence or edema General skin exam: elasticity normal Neuro General: patient oriented x3 Cranial nerves: Yes Equal, round and reactive pupils present and Yes Bilaterally intact EOM present Cognition (Neuro): normal cognition Course Course Course Narrative: This is an RME performed by Sera Mckeon CNP: Additional HPI, ROS, PE not included below will be deferred to primary provider. Patient is a 54-year-old male who presents emergency department for evaluation. He states [facility], I don't want to be [facility] again, they told me to come here I'm a vet that's what brings me in . nods head no when asked whether he is having any SI/HI. States he hasn't taken any of his medications in 6-7 days. I have a cold , at least one week, ongoing productive cough, chills. Denies chest pain or shortness of breath. Admits to daily alcohol consumption, at least pint 100 proof daily, last drank minutes before arrival. States he would like detox, reports history of bad withdrawl . Also states All I know is my feet are hurting they're swollen . Plan: Serum labs, ethanol, MCALLISTER, CXR Medications Administered Generic Name Dose Route Start Last Admin Trade Name Freq PRN Reason Stop Dose Admin Potassium Chloride 10 meq in 100 mls @ 100 mls/hr 09/25/24 22:15 09/26/24 00:17 Potassium Chloride/H20 IV 09/26/24 02:14 100 mls/hr Q1H ROSARIO Administration Discontinued Medications Generic Name Dose Route Start Last Admin Trade Name Freq PRN Reason Stop Dose Admin Magnesium Sulfate 2 gm in 50 mls @ 150 mls/hr 09/25/24 22:13 09/26/24 00:27 Magnesium Sulfate/H2o IV 09/25/24 22:32 Infused ONCE ONE Infusion Folic Acid 1 mg/ Sodium 50.2 mls @ 100.4 mls/hr 09/25/24 22:13 09/26/24 00:30 Chloride IV 09/25/24 22:42 100.4 mls/hr ONCE ONE Administration Lorazepam 2 mg 09/25/24 21:39 09/25/24 21:47 Lorazepam 1 Mg Tablet PO 09/25/24 21:40 2 mg ONCE ONE Administration Morphine Sulfate 4 mg 09/25/24 23:27 09/25/24 23:32 Morphine Sulfate 4 Mg/Ml Cartridge IVPUSH 09/25/24 23:28 4 mg ONCE ONE Administration Protocol Nicotine 21 mg 09/25/24 23:27 09/25/24 23:32 Nicotine 21 Mg Patch.Td24 TRANSDERMA 09/25/24 23:28 21 mg ONCE ONE Administration Oxycodone HCl 10 mg 09/25/24 22:08 09/25/24 22:29 Oxycodone Hcl Immed Release 5 Mg Tablet PO 09/25/24 22:09 10 mg ONCE ONE Administration Potassium Chloride 40 meq 09/25/24 22:13 09/25/24 22:29 Potassium Chloride Er 20 Meq Tab.Er.Prt PO 09/25/24 22:14 40 meq ONCE ONE Administration Medical Decision Making Medical Decision Making MDM Narrative: 54-year-old male presents for evaluation of multiple complaints including leg swelling which is acute on chronic. His chest x-ray is clear, his BNP is negative there was no evidence of congestive heart failure. He also complains of depression but without suicidal ideation. The patient is found to be hypokalemic to 2.2, his magnesium was also low at 1.2. This is likely multifactorial due to his alcohol abuse and chlorthalidone use. The patient reports having diarrhea for the last 4 weeks. He denies any recent antibiotic use, he denies any recent travel. His diarrhea may be related to his alcohol abuse. Patient will likely require admission for his hypokalemia and hypomagnesemia treatment. His alcohol level is elevated to 353. He will likely eventually have central use of alcohol withdrawal. I am hesitant to start the patient on Lasix for his leg edema given his electrolyte abnormalities, this will be deferred at this time Differential Diagnosis Differential Diagnoses: The differential diagnosis associated with the presentation includes Alcohol abuse Electrolyte disturbance Alcohol withdrawal Leg edema CHF Admission/Observation Consideration of admission/observation: Escalation of care including admission/observation considered Lab Data MDM Lab Attestation statement: I reviewed the patient's lab results. No leukocytosis. The patient has a mild anemia, his platelet count is just below normal at 176. He has multiple electrolyte abnormalities with a normal sodium, a potassium of 2.2, magnesium of 1.2, renal function within normal limits. 09/25/24 21:22 09/25/24 21:22 Labs: Lab Results 09/25/24 Range/Units 21:22 WBC 8.1 (4.8-10.8) X10*3/uL RBC 4.14 L (4.60-5.80) X10*6/uL Hgb 13.9 L (14.0-18.0) g/dl Hct 38.9 L (42.0-52.0) % MCV 94.0 (80.0-98.0) fL MCH 33.6 H (27.0-33.0) pg MCHC 35.7 (31.0-36.0) g/dl RDW 16.9 H (11.0-16.0) % Plt Count 136 L D (160-400) X10*3/uL MPV 9.7 (9.4-12.4) fL Immature Gran % (Auto) 0.7 H (0.0-0.4) % Neut % (Auto) 62.9 (45-73) % Lymph % (Auto) 21.8 (20-40) % [place] % (Auto) 12.8 H (2-11) % Eos % (Auto) 0.7 (0-4) % Baso % (Auto) 1.1 (0-2) % Lymph # (Auto) 1.8 (1.2-4.9) X10*3/uL [place] # (Auto) 1.0 (0.1-1.2) X10*3/uL Eos # (Auto) 0.1 (0.0-0.4) X10*3/uL Baso # (Auto) 0.1 (0.0-0.2) X10*3/uL Abs Immat Gran (auto) 0.06 H (0.00-0.03) X10*3/uL Absolute Neuts (auto) 5.1 (2.0-8.3) x10*3/uL Absolute Nucleated RBC 0.020 H (0.0-0.012) X10*3/uL Nucleated RBC % (auto) 0.2 (0.0-0.2) /100WBC PT 11.7 (10.9-12.4) SEC INR 1.0 (0.9-1.1) Sodium 139 (135-145) mmol/L Potassium 2.2 L* D (3.3-5.1) mmol/L Chloride 93 L (96-108) mmol/L Carbon Dioxide 33 H (22-29) mmol/L Anion Gap 15 (12-20) BUN 5 L (9-16) mg/dL Creatinine 0.87 (0.5-1.4) mg/dL Estim Creat Clear Calc 115.9 Estimated GFR > 60 Random Glucose 112 (60-115) mg/dL Calcium 8.1 L D (8.4-10.2) mg/dL Magnesium 1.2 L* (1.6-2.6) mg/dL Total Bilirubin 1.7 H (0.0-1.0) mg/dL AST 252 H (5-37) U/L ALT 110 H (0-40) U/L Alkaline Phosphatase 145 H (39-117) U/L B-Natriuretic Peptide 18 (<100) pg/mL Total Protein 6.9 (6.5-8.0) g/dL Albumin 3.4 L (3.5-5.0) g/dL Lipase 35 (8-78) U/L Ethyl Alcohol 351 H* mg/dL Influenza Type A (PCR) NEGATIVE (Negative) Influenza Type B (PCR) NEGATIVE (Negative) RSV RNA Qual (PCR) NEGATIVE (Negative) SARS-CoV-2 RNA (RT-PCR) NEGATIVE (Negative) Independent Interpretation I performed an independent interpretation of an: EKG (Kg I beats minute. He has T-wave inversions in leads V3. There is significant artifact. Nondiagnostic EKG) Discharge Plan Discharge Clinical Impression: Alcohol abuse, Acute hypokalemia, Lower extremity edema Prescriptions: No Action paroxetine HCl 20 mg tablet 20 mg PO DAILY 90 Days Qty: 90 0RF omega-3 acid ethyl esters 1 gram capsule 1 cap PO BID Qty: 180 1RF nystatin 100,000 unit/mL suspension 4 ml PO TID 10 Days Qty: 120 0RF Rx Instructions: swish and swallow albuterol sulfate [ProAir HFA] 90 mcg/actuation HFA aerosol inhaler 2 puff inhalation Q4-6H PRN (Reason: shortness of breath or wheezing) 30 Days Qty: 8.5 3RF albuterol sulfate [Ventolin HFA] 90 mcg/actuation HFA aerosol inhaler 2 puff inhalation Q6H PRN (Reason: shortness of breath or wheezing) 30 Days Qty: 8.5 3RF terazosin 10 mg capsule 10 mg PO BEDTIME 90 Days Qty: 90 1RF magnesium oxide 400 mg magnesium tablet 400 mg PO DAILY Qty: 30 2RF potassium chloride 20 mEq tablet extended release 20 meq PO DAILY 30 Days Qty: 30 3RF Spiriva Respimat 1.25 mcg/actuation mist 2 puff INHALATION DAILY Qty: 4 1RF bisacodyl [Dulcolax (bisacodyl)] 5 mg tablet,delayed release (DR/EC) 20 mg PO ONCE 1 Days Qty: 4 0RF Rx Instructions: Take 4 tablets at 12 pm the day before colonoscopy appointment polyethylene glycol 3350 [Miralax] 17 gram/dose powder 17 g PO DAILY 1 Days Qty: 238 0RF Rx Instructions: Mix Miralax with 64 oz(8 cups) of Crystal light. Take 2 tablets of Dulcolax qt 12 pm. Wait to have your 1st bowel movement, then begin drinking Miralax. Drink a glass of Miralax every 10-15 minutes until you are finished. You will drink at least another 4 cups of clear liquid of your choice over the next 2 hours. Please drink as many clear liquids as possible You may have clear liquids up to four hours before your procedure fluticasone propion-salmeterol [Advair Diskus] 250-50 mcg/dose blister with device 1 inh inhalation BID 30 Days Qty: 60 2RF amlodipine 5 mg tablet 5 mg PO DAILY Qty: 90 4RF Rx Instructions: Schedule next PCP appt for future refills chlorthalidone 25 mg tablet 25 mg PO DAILY Qty: 30 3RF omeprazole 40 mg capsule,delayed release(DR/EC) 40 mg PO DAILY Qty: 90 1RF quetiapine 50 mg tablet 50 mg PO BEDTIME PRN (Reason: Sleep) acetaminophen [Tylenol Extra Strength] 500 mg tablet 500 mg PO Q6H PRN (Reason: fever or pain) Qty: 14 0RF lidocaine [Lidoderm] 5 % adhesive patch,medicated 1 patch topical DAILY MDD remove after 12 hours PRN (Reason: pain) Qty: 30 0RF Rx Instructions: leave on most painful area for up to 12 hrs diazepam 5 mg tablet PO buprenorphine HCl 2 mg tablet, sublingual sublingual magnesium 250 mg tablet 250 mg PO DAILY Qty: 30 0RF (DME) BD Insulin Syringe 1 mL 25 gauge x 5/8 syringe See Rx Instructions .MEDSUPPLY Qty: 30 0RF Rx Instructions: As directed testosterone cypionate [Depo-Testosterone] 200 mg/mL oil 80 mg subcut QWEEK 28 Days Qty: 2 5RF atorvastatin 20 mg tablet 20 mg PO DAILY furosemide 20 mg tablet 20 mg PO DAILY 30 Days Qty: 30 1RF Print Language: Croatian
[2024-09-25 21:27] LABS: MANUAL DIFF FLAG NO
[2024-09-25 21:38] LABS: Basophils Absolute Auto 0.1 X10*3/uL (0.0-0.2); Basophils Percent Auto 1.1 % (0-2); Eosinophils Absolute Auto 0.1 X10*3/uL (0.0-0.4); Eosinophils Percent Auto 0.7 % (0-4); Hematocrit 38.9 % (42.0-52.0); Hemoglobin 13.9 g/dl (14.0-18.0); Imm Gran Abs Auto 0.06 X10*3/uL (0.00-0.03); Imm Gran Pct Auto 0.7 % (0.0-0.4); Lymphocytes Absolute Auto 1.8 X10*3/uL (1.2-4.9); Lymphocytes Percent Auto 21.8 % (20-40); Mean Corpuscular HGB Conc 35.7 g/dl (31.0-36.0); Mean Corpuscular Hemoglobin 33.6 pg (27.0-33.0); Mean Platelet Volume 9.7 fL (9.4-12.4); Monocytes Percent Auto 12.8 % (2-11); NRBC Pct Auto 0.2 /100WBC (0.0-0.2); Neutrophils Absolute Auto 5.1 x10*3/uL (2.0-8.3); Neutrophils Percent Auto 62.9 % (45-73); Platelet Count 136 X10*3/uL (160-400); Red Blood Count 4.14 X10*6/uL (4.60-5.80); Red Cell Distribution Width 16.9 % (11.0-16.0); White Blood Count 8.1 X10*3/uL (4.8-10.8)
[2024-09-25 21:44] LABS: Prothrombin Time 11.7 SEC (10.9-12.4)
[2024-09-25] MEDS: LORazepam 1 MG TABLET 2 MG PO (21:47)
[2024-09-25 21:58] LABS: B Type Natriuretic Peptide 18 pg/mL (<100)
[2024-09-25 22:00] LABS: Alanine Aminotransferase 110 U/L (0-40); Albumin Level 3.4 g/dL (3.5-5.0); Alkaline Phosphatase 145 U/L (39-117); Anion Gap 15 (12-20); Aspartate Amino Transferase 252 U/L (5-37); Bilirubin Total 1.7 mg/dL (0.0-1.0); Blood Urea Nitrogen 5 mg/dL (9-16); Calcium 8.1 mg/dL (8.4-10.2); Carbon Dioxide 33 mmol/L (22-29); Chloride 93 mmol/L (96-108); Creatinine Clr Calc Pharmacy 115.9; Estimated Glomerular Filt Rate > 60; Glucose Random 112 mg/dL (60-115); Lipase 35 U/L (8-78); Magnesium 1.2 mg/dL (1.6-2.6); Potassium 2.2 mmol/L (3.3-5.1); Sodium 139 mmol/L (135-145); Total Protein 6.9 g/dL (6.5-8.0)
--- NOTE | 2024-09-25 22:13 | ECG_ITS ---
Test Reason : HYPOKALEMIA Blood Pressure : / mmHG Vent. Rate : 095 BPM Atrial Rate : 000 BPM P-R Int : 000 ms QRS Dur : 076 ms QT Int : 266 ms P-R-T Axes : 000 033 -79 degrees QTc Int : 334 ms Accelerated Junctional rhythm ST & T wave abnormality, consider anterior ischemia Abnormal ECG When compared with ECG of 10-APR-2024 15:12, Junctional rhythm has replaced Sinus rhythm Nonspecific T wave abnormality, worse in Inferior leads T wave inversion now evident in Anterior leads QT has shortened Referred By: Alexsander Roth Electronically Signed By:Teofilo Walters
[2024-09-25 22:22] LABS: Influenza A PCR NEGATIVE (Negative); Influenza B PCR NEGATIVE (Negative); Resp Syncy Virus RNA Qual PCR NEGATIVE (Negative); SARS COV2 PCR INHOUSE NEGATIVE (Negative)
[2024-09-25] MEDS: oxyCODONE HCl Immed Release 5 MG TABLET 10 MG PO (22:29)
[2024-09-25] MEDS: Potassium Chloride ER 20 MEQ TAB.ER.PRT 40 MEQ PO (22:29)
[2024-09-25] MEDS: Magnesium Sulfate/H2O 2 GM/50 ML PIGGYBACK IV (22:36)
[2024-09-25] MEDS: Potassium Chloride/H20 10 MEQ/100 ML PIGGYBACK 100 MEQ IV (22:45)
[2024-09-25 22:48] LABS: Ethanol 351 mg/dL
[2024-09-25 22:50] VITALS: BP 118/66; PULSE 101; RESP 16; TEMP 36.8; O2SAT 98
[2024-09-25] MEDS: Nicotine 21 MG PATCH.TD24 TRANSDERMA (23:32)
[2024-09-25] MEDS: Morphine Sulfate 4 MG/ML CARTRIDGE IVPUSH (23:32)
[2024-09-26] VITALS (8 sets, daily range): BP systolic 138–162; BP diastolic 85–103; PULSE 80–115; RESP 17–20; TEMP 36.6–37.3; O2SAT 93–97
[2024-09-26] MEDS: Potassium Chloride/H20 10 MEQ/100 ML PIGGYBACK 100 MEQ IV ×8 (00:17→22:47)
[2024-09-26] MEDS: Folic Acid 1 MG in 0.9 % Sodium Chloride 50 ML 100.4 MG IV (00:30)
[2024-09-26 01:12] LABS: Troponin-I High Sensitivity 15.2 ng/L (<3.5-35.0)
[2024-09-26] MEDS: PHENobarbitaL sodium 130 MG/ML IM ONCE 325 MG IM (01:55)
--- NOTE | 2024-09-26 02:00 | PM.IMHP ---
History of Present Illness Date of Service: 09/26/24 Attending physician on admission: Joseph Oconnell Chief Complaint: Leg swelling, alcohol detox, I feel like crap Guanako Mccann is a 54 years old man with past medical history significant for alcohol abuse, GERD/gastritis, portal gastropathy, depression, essential hypertension, chronic lung disease, mood disorder and chronic pain presents to the emergency department looking for detox assistance. He is also complaining of lower extremity swelling and redness. He denied edema to the genitalia. He continues to drink alcohol, about 1 pt of whiskey daily and also smokes marijuana. Last time he drank alcohol was prior to presenting to the emergency department. Denied illicit drug use. He is also tobacco smoker. He did not report any acute abdominal pain but distention. He also complained of nausea and chronic diarrhea. He was prescribed to take chlorthalidone in August of this year. He said that he has not been taking any of his medication over the last week. Patient is a vague historian. In the ED, he was found to have stable vital signs. Blood workup showed no leukocytosis. Hemoglobin is 13.9 and platelets 136. INR is 1.0. Potassium is 2.2, chloride 98, magnesium 1.2, CO2 93 and creatinine 0.87. LFTs are elevated. Troponin is 15.2, albumin 3.4, lipase 35 and normal BNP. ETOH level is 351. Viral testing for COVID-19, influenza and RSV is negative. CXR is unremarkable. ECG showed normal sinus rhythm with a heart rate of 95 beats per minutes and nonspecific ST changes with normal QT (QTc 334 ms). Last TTE is normal. ED tx: Ativan 2 mg p.o., oxycodone 10 mg p.o., KCl 40 mEq p.o., KCl IV, magnesium 2 g IV, thiamine 500 mg IV, folic acid 1 mg p.o., morphine 4 mg IV, nicotine patch 21 mcg patch), phenobarbital 325 mg IM Review of Systems Review of Systems: Limited (poor historian). [facility] Medical History (Updated 09/25/24 @ 23:51 by Alexsander Roth) Moderate persistent asthma Clubbing of nails Lumbar degenerative disc disease Right knee pain Primary osteoarthritis, right shoulder Right shoulder pain Cervicalgia Knee osteoarthritis Lung disease caused by breathing particles Depression Supraclavicular mass Sleep apnea in adult Pulmonary nodules Hypogonadism in male Nocturia more than twice per night Wrist fracture Posttraumatic stress disorder Anxiety Hypothyroidism Family History Mother Alive and well Breast cancer Father No problems noted. Daughter Alive and well Daughter Alive and well Brother Alive and well Surgical History History of colonoscopy History of inguinal hernia repair Social History Household Members: None Housing: Apartment Do you presently have visiting nurse or other home services: No Alcohol intake: current Alcohol intake frequency: 3 or more drinks per day Alcohol type: beer Patient Tobacco Use Status: Current everyday Tobacco user Tobacco use type: Smokeless Tobacco Cigarette Packs Per Day: 1 Cigarettes Per Day: 20.0 Years Smoked: quit cigaretters 8 years ago, once/month cigars & chewing tobacco e-Cigarette/Vaping Use: Currently Using Second Hand Smoke Exposure: No Substance Use Type: Opiates Advance Directives: No Advance Directives Information Provided: No service: Yes Current occupational status: employed 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 Cognitive needs: No Hearing needs: No Vision needs: No Meds Allergies Allergy/AdvReac Type Severity Reaction Status Date / Time No Known Allergies Allergy Verified 09/25/24 19:57 [No Known Allergies*] Active Medications: Current Medications Enoxaparin Sodium (Enoxaparin Sodium 40 Mg/0.4 Ml Syringe) 40 mg SUBCUT Q24H [facility] Folic Acid (Folic Acid 1 Mg Tablet) 1 mg PO DAILY [facility] Hydromorphone HCl (Hydromorphone Hcl 1 Mg/Ml Syringe) 1 mg IVPUSH Q4H PRN; Protocol PRN Reason: Pain, Severe (Pain Scale 7-10) Potassium Chloride (Potassium Chloride/H20) 10 meq in 100 mls @ 100 mls/hr IV Q1H [facility] Stop: 09/26/24 02:14 Last Admin: 09/26/24 00:17 Dose: 100 mls/hr Thiamine HCl 100 mg/ Sodium (Chloride) 101 mls @ 202 mls/hr IV DAILY [facility] Magnesium Oxide (Magnesium Oxide 400 Mg Tablet) 400 mg PO BID [facility] Melatonin (Melatonin 3 Mg Tablet) 6 mg PO BEDTIME PRN PRN Reason: Insomnia Multivitamins/Vitamin C (Multivitamin Tablet) 1 tab PO DAILY COUNTS INCLUDE 234 BEDS AT THE [facility] Pharmacy Consult (Consult Rx Etoh Phenob Im/Po) 1 each MISCELLANE ONCE PRN; Protocol PRN Reason: Consult order Phenobarbital (Phenobarbital 30 Mg Tablet) 60 mg PO BID COUNTS INCLUDE 234 BEDS AT THE [facility] Stop: 09/27/24 21:01 Phenobarbital (Phenobarbital 30 Mg Tablet) 30 mg PO BID COUNTS INCLUDE 234 BEDS AT THE [facility] Stop: 09/29/24 21:01 Phenobarbital (Phenobarbital 30 Mg Tablet) 30 mg PO DAILY COUNTS INCLUDE 234 BEDS AT THE [facility] Stop: 10/01/24 09:01 Phenobarbital Sodium (Phenobarbital Sodium 130 Mg/Ml Vial Im Q3hx2) 234 mg IM Q3H [facility] Stop: 09/26/24 07:46 Sodium Chloride (0.9 % Sodium Chloride Flush 3 Ml Syringe) 3 ml IVFLUSH QSHIFT COUNTS INCLUDE 234 BEDS AT THE [facility] Spironolactone (Spironolactone 25 Mg Tablet) 12.5 mg PO DAILY COUNTS INCLUDE 234 BEDS AT THE [facility]; Protocol Home Medications ?Medication ?Instructions ?Recorded ?Confirmed ?Last Taken ?Type quetiapine 50 mg tablet 50 mg PO BEDTIME PRN Sleep 10/19/23 06/04/24 Unknown History buprenorphine HCl 2 mg sublingual mg sublingual 03/10/24 06/04/24 Unknown History tablet diazepam 5 mg tablet mg PO 03/10/24 06/04/24 Unknown History atorvastatin 20 mg tablet 20 mg PO DAILY 06/04/24 06/04/24 Unknown History Physical Exam Vital Signs and Narrative: Vital Signs: Last Vital Signs Temp 98.2 F 09/25/24 22:50 Pulse 101 H 09/25/24 22:50 Resp 16 09/25/24 22:50 BP 118/66 09/25/24 22:50 Pulse Ox 98 09/25/24 22:50 O2 Del Method Room Air 09/25/24 22:50 BMI result Body Mass Index 29.8 Constitutional - Awake and Alert, No apparent distress. Cooperative. HEENT - PER, EOMI. Normal sclerae. Heart - Tachycardia. Regular rhythm. No murmurs. Lungs - Normal lung expansion, Normal respiratory effort, No respiratory distress, CTA bilaterally Gastrointestinal - Mildly distended abdomen, no fluid wave. Extremities - Lower extremity marked pitting edema and erythema bilaterally. Musculoskeletal - Normal inspection, normal ROM Skin - Warm/Dry Neurological - Alert & oriented x3. No focal weakness grossly noted. Normal speech. Psychological - Depressed affect Results Labs 09/25/24 21:22 09/25/24 21:22 Labs: Laboratory Results - last 24 hr 09/25/24 21:22 MCV 94.0 MCH 33.6 H MCHC 35.7 RDW 16.9 H Plt Count 136 L D MPV 9.7 Immature Gran % (Auto) 0.7 H Neut % (Auto) 62.9 Lymph % (Auto) 21.8 [place] % (Auto) 12.8 H Eos % (Auto) 0.7 Baso % (Auto) 1.1 Lymph # (Auto) 1.8 [place] # (Auto) 1.0 Eos # (Auto) 0.1 Baso # (Auto) 0.1 Abs Immat Gran (auto) 0.06 H Absolute Neuts (auto) 5.1 Absolute Nucleated RBC 0.020 H Nucleated RBC % (auto) 0.2 PT 11.7 INR 1.0 Anion Gap 15 Estim Creat Clear Calc 115.9 Estimated GFR > 60 Random Glucose 112 Calcium 8.1 L D Magnesium 1.2 L* Total Bilirubin 1.7 H AST 252 H ALT 110 H Alkaline Phosphatase 145 H Troponin I High Sens 15.2 B-Natriuretic Peptide 18 Total Protein 6.9 Albumin 3.4 L Lipase 35 Ethyl Alcohol 351 H* Influenza Type A (PCR) NEGATIVE Influenza Type B (PCR) NEGATIVE RSV RNA Qual (PCR) NEGATIVE SARS-CoV-2 RNA (RT-PCR) NEGATIVE Imaging Radiologist's Impressions: Impressions Toe X-Ray 09/25/24 22:17 IMPRESSION: Unremarkable examination. Electronically signed by: Rc Govea DO 09/25/2024 11:54 PM EST RP Chest X-Ray 09/25/24 22:36 IMPRESSION: Unremarkable examination. Electronically signed by: Jose Kee MD 09/25/2024 11:23 PM EST RP Assessment and Plan (1) Acute hypokalemia: Status: Acute (2) Alcohol abuse: Status: Acute (3) Hypomagnesemia: Status: Acute Plan Guanako Mccann is a 54 y/o man admitted with: Multiple electrolyte imbalances: Hypomagnesemia + hypokalemia likely secondary to alcohol abuse; urothelial possible contributing to this (last use was a week ago). Admit to hospitalist service. Telemetry. Replete as needed. Continue to monitor electrolytes. Hold chlorthalidone. Elevated CO2, likely contraction alkalosis. Will encourage oral hydration. Continue to monitor. Bilateral lower extremity edema, likely multifactorial: hypoalbuminemia, stasis dermatitis, venous insufficiency. Doubt cellulitis. Start spironolactone. Elevate extremities. Check lower extremity venous ultrasound to assess for DVT. Check TSH. Alcohol abuse. CIWA. Phenobarbital protocol. Thiamine, folic acid, multivitamins and magnesium. Addiction medicine consult. Elevated LFTs secondary to alcohol abuse. Continue to monitor. We will need to abstain for alcohol consumption. Chronic lung disease. Continue Spiriva. DuoNeb as needed. GERD. Continue PPI. Depression. Psychiatric consult. Essential hypertension. Blood pressure normal recently. Will consider anti-HTN meds if needed. Chronic pain. Patient requesting stronger pain medications. Tobacco dependence. Tobacco cessation education. Nicotine patch. History of hypothyroidism. ?not taking meds. Check TSH. DVT prophylaxis: Lovenox Code status: Full Patient will need hospitalization for at least 2 midnights for multiple electrolyte imbalances treatment with supplementation and close monitoring of levels as well as cardiac monitoring. Patient also will need to received treatment with phenobarbital for alcohol withdrawal. Quality Stroke Does the patient have a stroke diagnosis?: No VTE Prior VTE?: No VTE Risk Level:: Medical - moderate - high VTE Device Contraindication: Treatment Not Indicated VTE Drug Contraindication: N/A - Med Ordered
[2024-09-26] MEDS: HYDROmorphone HCl 1 MG/ML SYRINGE IVPUSH ×4 (02:46→20:55)
[2024-09-26] MEDS: Thiamine HCL 500 MG in 0.9 % Sodium Chloride 100 ML 210 MG IV (03:33)
[2024-09-26 03:39] LABS: Thyroid Stimulating Hormone 5.75 uIU/mL (0.32-4.0)
[2024-09-26 04:40] LABS: MANUAL DIFF FLAG NO
[2024-09-26 04:41] LABS: Basophils Absolute Auto 0.1 X10*3/uL (0.0-0.2); Basophils Percent Auto 0.9 % (0-2); Eosinophils Absolute Auto 0.1 X10*3/uL (0.0-0.4); Eosinophils Percent Auto 0.9 % (0-4); Hematocrit 40.3 % (42.0-52.0); Hemoglobin 14.3 g/dl (14.0-18.0); Imm Gran Abs Auto 0.06 X10*3/uL (0.00-0.03); Imm Gran Pct Auto 0.7 % (0.0-0.4); Lymphocytes Absolute Auto 1.3 X10*3/uL (1.2-4.9); Lymphocytes Percent Auto 14.9 % (20-40); Mean Corpuscular HGB Conc 35.5 g/dl (31.0-36.0); Mean Corpuscular Hemoglobin 33.6 pg (27.0-33.0); Mean Corpuscular Volume 94.6 fL (80.0-98.0); Mean Platelet Volume 10.1 fL (9.4-12.4); Monocytes Absolute Auto 0.9 X10*3/uL (0.1-1.2); Neutrophils Absolute Auto 6.5 x10*3/uL (2.0-8.3); Neutrophils Percent Auto 72.6 % (45-73); Platelet Count 141 X10*3/uL (160-400); Red Blood Count 4.26 X10*6/uL (4.60-5.80); Red Cell Distribution Width 17.5 % (11.0-16.0); White Blood Count 8.9 X10*3/uL (4.8-10.8)
[2024-09-26] MEDS: PHENobarbitaL sodium 130 MG/ML VIAL IM Q3Hx2 234 MG IM ×2 (04:55→07:26)
[2024-09-26 05:25] LABS: Alanine Aminotransferase 113 U/L (0-40); Albumin Level 3.4 g/dL (3.5-5.0); Alkaline Phosphatase 149 U/L (39-117); Anion Gap 22 (12-20); Aspartate Amino Transferase 264 U/L (5-37); Bilirubin Total 1.5 mg/dL (0.0-1.0); Blood Urea Nitrogen 5 mg/dL (9-16); Calcium 8.2 mg/dL (8.4-10.2); Carbon Dioxide 26 mmol/L (22-29); Chloride 96 mmol/L (96-108); Estimated Glomerular Filt Rate > 60; Glucose Random 159 mg/dL (60-115); Potassium 2.5 mmol/L (3.3-5.1); Sodium 141 mmol/L (135-145); Total Protein 6.8 g/dL (6.5-8.0)
[2024-09-26 05:47] LABS: Magnesium 1.3 mg/dL (1.6-2.6)
[2024-09-26] MEDS: Potassium Chloride Packet 20 MEQ PACKET 40 MEQ PO ×3 (06:09→20:36)
[2024-09-26] MEDS: Magnesium Sulfate/H2O 2 GM/50 ML PIGGYBACK IV ×3 (06:10→21:05)
--- NOTE | 2024-09-26 06:24 | PC.NURSE ---
Pt is 54 year old male who presented to the ED for bilateral feet and leg swelling/pain. Pt intoxicated, tearful but unwilling to talk with staff and initially explain reason for presentation. [facility]. Pt changed over by security 3 bags of belongings on shelf 3 in closet and alcohol and knife with security. Pt drank just prior to giving belongings to security. Pt is heavy alcohol drinker(hard liquor) smokes cigarettes and marijuana daily. Pt was paranoid and upset, not wanting to talk to staff stating big brother is out to get me . Pt given 2mg ativan PO to help with anxiety but no relief. Pt is a and has hx of PTSD, Major depression, Alcohol use d/o. Pt tearful needing detox stating he did not feel good. Pt allowed tech to obtain labs, revealing low potassium and magnesium levels. Pt placed on monitor, ekg complete, VSS, pt having 10/10 pain in bilateral lower extremities, received oxycodone 10 mg which he stated it did not help. Pt then given morphine which only minimally helped. Pt admitted for low potassium, magnesium, psych evaluation for detox. After hospitalist evaluation pt received dilaudid for pain. Pt received mag sulfate, PO and IV potassium replacement, Folic acid and thiamine, Pt received 2 IM injections of phenobarbital. Pt remains restless and and agitated. Pt repetitively asking to go outside and smoke. Pt given nicotine patch to Lupper arm earlier in the night. Sitter at bed side for safety. Pt continues to deny and SI/HI. Pt has black scabbing to L-4th toe, xray was unremarkable. Pt ambulatory independent with supervision. pt refusing to keep tele monitor on, wants to go outside for 3 minute cigarette break. This RN explained multiple times that this was hospital policy and he is not able to go outside for a cigarette.
[2024-09-26] MEDS: 0.9 % Sodium Chloride Flush 3 ML SYRINGE IVFLUSH ×2 (08:09→16:36)
[2024-09-26 09:45] LABS: T4 Thyroxine 7.1 ug/dL (4.5-12.0)
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
--- NOTE | 2024-09-26 10:04 | PHA.MEDREC ---
Pharmacy Consult ? Medication Reconciliation Pharmacy has completed the medication reconciliation. Contacted [facility] for med list. Spoke to pt with list and they confirmed meds.
[2024-09-26] MEDS: Magnesium Oxide 400 MG TABLET 800 MG PO ×2 (10:13→20:35)
[2024-09-26] MEDS: Multivitamin TABLET 1 TAB PO (10:14)
[2024-09-26] MEDS: Enoxaparin Sodium 40 MG/0.4 ML SYRINGE SUBCUT (10:14)
[2024-09-26] MEDS: PHENobarbitaL 30 MG TABLET 60 MG PO ×2 (10:14→20:35)
[2024-09-26] MEDS: Omeprazole 40 MG CAPSULE.DR PO (10:14)
[2024-09-26] MEDS: Spironolactone 25 MG TABLET 12.5 MG PO (10:14)
[2024-09-26] MEDS: Folic Acid 1 MG TABLET PO (10:14)
[2024-09-26] MEDS: Thiamine HCL 100 MG in 0.9 % Sodium Chloride 100 ML 202 MG IV (10:15)
[2024-09-26] MEDS: diazePAM 5 MG TABLET PO (11:04)
[2024-09-26] MEDS: PHENobarbitaL sodium 130 MG/ML VIAL IM (11:04)
--- NOTE | 2024-09-26 11:56 | PM.EVENT ---
Event Note Date of Service: 09/26/24 Event Note: Seen and evaluated this morning Feels nauseated and irritated Give extra dose of PHenobarb Start home medications Increase fluid intakes Give more Potassium and Magnesium for now follow BMP , LFT Time Spent With Patient Time: Total time managing care of this patient today ____ minutes.
[2024-09-26 13:20] LABS: Anion Gap 17 (12-20); Blood Urea Nitrogen 5 mg/dL (9-16); Carbon Dioxide 28 mmol/L (22-29); Chloride 95 mmol/L (96-108); Creatinine Clr Calc Pharmacy 121.5; Estimated Glomerular Filt Rate > 60; Glucose Random 138 mg/dL (60-115); Magnesium 1.3 mg/dL (1.6-2.6); Potassium 2.7 mmol/L (3.3-5.1); Sodium 137 mmol/L (135-145)
--- NOTE | 2024-09-26 13:55 | MHC.CM.PN ---
[facility] IMM 09/26. Pt self-care, lives alone at home, uses a cane. Pt will arrange his own transport home at discharge. Education provided on HCP, declined at this time. PCP: Jose WOLF
[2024-09-26] MEDS: Nicotine 14 MG PATCH.TD24 TRANSDERMA (16:35)
[2024-09-26] MEDS: Albuterol/Iprat 2.5/0.5MG 3 ML AMPUL.NEB INHALE (17:27)
[2024-09-26] MEDS: Tamsulosin HCL 0.4 MG CAPSULE PO (20:36)
[2024-09-26 20:44] LABS: Magnesium 1.6 mg/dL (1.6-2.6); Potassium 2.7 mmol/L (3.3-5.1)
[2024-09-26] MEDS: QUEtiapine Fumarate 50 MG TABLET PO (20:55)
[2024-09-27] VITALS (9 sets, daily range): BP systolic 129–149; BP diastolic 77–94; PULSE 88–115; RESP 18–20; TEMP 36.2–37.4; O2SAT 95–98
[2024-09-27] MEDS: Potassium Chloride/H20 10 MEQ/100 ML PIGGYBACK 100 MEQ IV ×5 (00:32→13:24)
[2024-09-27 07:32] LABS: PLT CLUMP 1
[2024-09-27 07:34] LABS: Hematocrit 34.4 % (42.0-52.0); Hemoglobin 12.5 g/dl (14.0-18.0); Mean Corpuscular HGB Conc 36.3 g/dl (31.0-36.0); Mean Corpuscular Hemoglobin 34.5 pg (27.0-33.0); Red Blood Count 3.62 X10*6/uL (4.60-5.80); Red Cell Distribution Width 16.8 % (11.0-16.0)
[2024-09-27 07:44] LABS: Alanine Aminotransferase 79 U/L (0-40); Albumin Level 2.8 g/dL (3.5-5.0); Alkaline Phosphatase 126 U/L (39-117); Aspartate Amino Transferase 132 U/L (5-37); Bilirubin Direct 0.9 mg/dL (0.0-0.5); Bilirubin Total 2.2 mg/dL (0.0-1.0); Magnesium 1.6 mg/dL (1.6-2.6); Total Protein 5.7 g/dL (6.5-8.0)
[2024-09-27 07:54] LABS: Platelet Count 99 X10*3/uL (160-400); White Blood Count 6.5 X10*3/uL (4.8-10.8)
[2024-09-27 08:22] LABS: Anion Gap 15 (12-20); Blood Urea Nitrogen 5 mg/dL (9-16); Carbon Dioxide 27 mmol/L (22-29); Chloride 95 mmol/L (96-108); Creatinine Clr Calc Pharmacy 129.3; Estimated Glomerular Filt Rate > 60; Glucose Random 107 mg/dL (60-115); Potassium 2.7 mmol/L (3.3-5.1); Sodium 134 mmol/L (135-145)
[2024-09-27] MEDS: Tiotropium Bromide 2.5 mcg 1 PUFF/2.5 MCG MIST.INHAL 2 PUFF INHALE (08:27)
[2024-09-27] MEDS: Fluticasone/Vilanterol 100/25 BLST.W.DEV 1 PUFF INHALE (08:27)
[2024-09-27] MEDS: Enoxaparin Sodium 40 MG/0.4 ML SYRINGE SUBCUT (09:52)
[2024-09-27] MEDS: Nicotine 14 MG PATCH.TD24 TRANSDERMA (09:52)
[2024-09-27] MEDS: diazePAM 5 MG TABLET PO (09:53)
[2024-09-27] MEDS: PHENobarbitaL 30 MG TABLET 60 MG PO ×2 (09:53→20:58)
[2024-09-27] MEDS: Potassium Chloride Packet 20 MEQ PACKET 40 MEQ PO ×3 (09:53→20:58)
[2024-09-27] MEDS: Magnesium Oxide 400 MG TABLET 800 MG PO ×2 (09:53→20:59)
[2024-09-27] MEDS: Thiamine HCL 100 MG TABLET PO (09:53)
[2024-09-27] MEDS: Multivitamin TABLET 1 TAB PO (09:53)
[2024-09-27] MEDS: Spironolactone 25 MG TABLET 12.5 MG PO (09:53)
[2024-09-27] MEDS: Folic Acid 1 MG TABLET PO (09:53)
[2024-09-27] MEDS: 0.9 % Sodium Chloride Flush 3 ML SYRINGE IVFLUSH ×2 (09:54→21:00)
[2024-09-27] MEDS: amLODIPine Besylate 5 MG TABLET PO (09:54)
[2024-09-27] MEDS: PARoxetine HCL 40 MG TABLET PO (09:54)
[2024-09-27] MEDS: Omeprazole 40 MG CAPSULE.DR PO (09:54)
--- NOTE | 2024-09-27 10:46 | MHC.RECOVRN ---
Met with pt in after consultation placed? with Addiction Medicine for Alcohol abuse.? Chart review completed and received report from floor nurse Shira. Pt had presented to the ED requesting help with detox.? Pt admitted to the floor for electrolyte imbalances treatment,? cardiac monitoring and treatment for alcohol w/d with phenobarbital .?? Upon assessment pt is sitting on the side of bed awake but drowsy.? No active ETOH W/D observed or reported. Pt reports he has been drinking ?a lot for a long time?.? He reports one period of sobriety for 4 months following a rehab stay.? He does not feel he learned anything from the inpatient stay and did not f/u with any outpatient services.? Pt continued to fall asleep during our meeting and stated that he does not sleep well.? When asked he reports this is a problem at home too and one of the reasons he drinks.??? Pt is interested in trying LUCAS in an outpatient setting.? He took the resource folder I gave him and agreed to review once a little more awake.? He was provided with outpatient resources, harm reduction information and [facility] information. [facility] will F/U with pt. Tomorrow to further discuss if more alert and attempt to assist with outpatient appt for LUCAS. Report provided to pt?s nurse Silva along with ACS team.
--- NOTE | 2024-09-27 10:48 | MHC.RECOVRN ---
AUDIT-C Brief Intervention Pt had positive screen for unhealthy alcohol use on admission, subsequently met with t/w to discuss alcohol use and recovery supports/options. This editorial writer met with patient to discuss current alcohol use and concerns related to increased risk of alcohol related problems. Pt reports drinking a lot for a long time . He had reported to ED that he drinks 1 pint/day. Discussed how alcohol use has impacted health, including negative impact on heart. Withdrawal History: None reported Treatment History:1 rehab facility which sparked 4 months of sobriety. Supports:?None reported Attempted to Discussed risk reduction strategies including drinking below the recommended limit but pt. kept falling asleep during assessment. Provided pt with written resources including information on inpatient and outpatient treatment, LUCAS, harm reduction, and recovery coaching. Pt plans to try LUCAS in outpatient setting. Pt provided with t/w contact information if questions or concerns arise. Denies other questions or concerns at this time.
--- NOTE | 2024-09-27 11:22 | P.PNIM_ITS ---
Subjective Subjective Date of Service: 09/27/24 Interval History: Seen and evaluated this morning feels weak and having all body pain no other overnight events Review of Systems Review of Systems: Yes all other systems are reviewed and are negative Physical Exam 2 Vital Signs: Vital Signs: Last Vital Signs Temp 98.5 F 09/27/24 08:00 Pulse 111 H 09/27/24 08:28 Resp 18 09/27/24 08:28 BP 138/77 09/27/24 09:54 Pulse Ox 95 09/27/24 08:00 O2 Del Method Room Air 09/27/24 08:00 BMI result Body Mass Index 29.8 Const: Other: Constitutional : Awake, interactive, distressed, anxious Neck : Normal inspection, Supple Cardiovascular : RRR, no JVP, no lower extremity edema Respiratory : good bilateral air entry, no crackles, wheezes or rhonchi Gastrointestinal: soft, lax, Normal bowel sounds, Non tender Skin : Warm, Dry Neurological : Alert & oriented x3, No focal deficit , mild tremors Objective Data Active Medications Albuterol Sulfate (Albuterol Sulfate 90 Mcg 8 Gm Inhaler) 2 puff INHALE Q4H PRN PRN Reason: shortness of breath or wheezing Albuterol/Ipratropium (Albuterol/Iprat 2.5/0.5mg 3 Ml Ampul.Neb) 3 ml INHALE Q4H PRN PRN Reason: shortness of bresth Last Admin: 09/26/24 17:27 Dose: 3 ml Documented By: MARYANNE Amlodipine Besylate (Amlodipine Besylate 5 Mg Tablet) 5 mg PO DAILY REPLACED BY [facility]; Protocol Last Admin: 09/27/24 09:54 Dose: 5 mg Documented By: MARYANNE Diazepam (Diazepam 5 Mg Tablet) 5 mg PO DAILY REPLACED BY [facility] Last Admin: 09/27/24 09:53 Dose: 5 mg Documented By: MARYANNE Enoxaparin Sodium (Enoxaparin Sodium 40 Mg/0.4 Ml Syringe) 40 mg SUBCUT Q24H REPLACED BY [facility] Last Admin: 09/27/24 09:52 Dose: 40 mg Documented By: MARYANNE Fluticasone/Vilanterol (Fluticasone/Vilanterol 100/25 Blst.W.Dev) 1 puff INHALE RDAILY REPLACED BY [facility] Last Admin: 09/27/24 08:27 Dose: 1 puff Documented By: LANE Folic Acid (Folic Acid 1 Mg Tablet) 1 mg PO DAILY REPLACED BY [facility] Last Admin: 09/27/24 09:53 Dose: 1 mg Documented By: MARYANNE Hydromorphone HCl (Hydromorphone Hcl 1 Mg/Ml Syringe) 1 mg IVPUSH Q4H PRN; Protocol PRN Reason: Pain, Severe (Pain Scale 7-10) Last Admin: 09/26/24 20:55 Dose: 1 mg Documented By: SONIA Potassium Chloride (Potassium Chloride/H20) 10 meq in 100 mls @ 100 mls/hr IV Q1H REPLACED BY [facility] Stop: 09/27/24 12:14 Lactic Acid (Ammonium Lactate 12 % Lotion 226 Gm Bottle) 1 appl TOPICAL BID REPLACED BY [facility]; Protocol Last Admin: 09/27/24 09:05 Dose: Not Given Documented By: MARYANNE Non-Admin Reason: waiting for pharmacy to bring up Magnesium Oxide (Magnesium Oxide 400 Mg Tablet) 800 mg PO BID REPLACED BY [facility] Last Admin: 09/27/24 09:53 Dose: 800 mg Documented By: MARYANNE Melatonin (Melatonin 3 Mg Tablet) 6 mg PO BEDTIME PRN PRN Reason: Insomnia Multivitamins/Vitamin C (Multivitamin Tablet) 1 tab PO DAILY REPLACED BY [facility] Last Admin: 09/27/24 09:53 Dose: 1 tab Documented By: MARYANNE Multivitamins/Vitamin C (Multivitamin Tablet) 1 tab PO DAILY REPLACED BY [facility] Last Admin: 09/27/24 09:06 Dose: Not Given Documented By: MARYANNE Non-Admin Reason: Duplicate Order Nicotine (Nicotine 14 Mg Patch.Td24) 14 mg TRANSDERMA DAILY REPLACED BY [facility] Last Admin: 09/27/24 09:52 Dose: 14 mg Documented By: MARYANNE Nicotine Polacrilex (Nicotine Polacrilex Lozenge 2 Mg Lozenge) 2 mg BUCCAL Q4H PRN PRN Reason: Nicotine Cravings Omeprazole (Omeprazole 40 Mg Capsule.) 40 mg PO DAILY REPLACED BY [facility] Last Admin: 09/27/24 09:54 Dose: 40 mg Documented By: MARYANNE Ondansetron HCl (Ondansetron Hcl 4 Mg/2 Ml Vial) 4 mg IVPUSH Q6H PRN PRN Reason: Nausea and Vomiting Paroxetine HCl (Paroxetine Hcl 40 Mg Tablet) 40 mg PO DAILY REPLACED BY [facility] Last Admin: 09/27/24 09:54 Dose: 40 mg Documented By: MARYANNE Pharmacy Consult (Consult Rx Etoh Phenob Im/Po) 1 each MISCELLANE ONCE PRN; Protocol PRN Reason: Consult order Phenobarbital (Phenobarbital 30 Mg Tablet) 60 mg PO BID REPLACED BY [facility] Stop: 09/27/24 21:01 Last Admin: 09/27/24 09:53 Dose: 60 mg Documented By: MARYANNE Phenobarbital (Phenobarbital 30 Mg Tablet) 30 mg PO BID REPLACED BY [facility] Stop: 09/29/24 21:01 Phenobarbital (Phenobarbital 30 Mg Tablet) 30 mg PO DAILY REPLACED BY [facility] Stop: 10/01/24 09:01 Phenobarbital Sodium (Phenobarbital Sodium 130 Mg/Ml Vial) 130 mg IM ONCE PRN PRN Reason: Alcohol Withdrawal Potassium Chloride (Potassium Chloride Packet 20 Meq Packet) 40 meq PO TID REPLACED BY [facility] Stop: 09/28/24 15:00 Last Admin: 09/27/24 09:53 Dose: 40 meq Documented By: MARYANNE Quetiapine Fumarate (Quetiapine Fumarate 50 Mg Tablet) 50 mg PO BID PRN PRN Reason: anxiety/restlessness Last Admin: 09/26/24 20:55 Dose: 50 mg Documented By: SONIA Sodium Chloride (0.9 % Sodium Chloride Flush 3 Ml Syringe) 3 ml IVFLUSH QSHIFT REPLACED BY [facility] Last Admin: 09/27/24 09:54 Dose: 3 ml Documented By: MARYANNE Spironolactone (Spironolactone 25 Mg Tablet) 12.5 mg PO DAILY REPLACED BY [facility]; Protocol Last Admin: 09/27/24 09:53 Dose: 12.5 mg Documented By: MARYANNE Tamsulosin HCl (Tamsulosin Hcl 0.4 Mg Capsule) 0.4 mg PO BEDTIME REPLACED BY [facility] Last Admin: 09/26/24 20:36 Dose: 0.4 mg Documented By: SONIA Thiamine HCl (Thiamine Hcl 100 Mg Tablet) 100 mg PO DAILY REPLACED BY [facility] Last Admin: 09/27/24 09:53 Dose: 100 mg Documented By: MARYANNE Tiotropium [place] (Tiotropium [place] 2.5 Mcg 1 Puff/2.5 Mcg Mist.Inhal) 2 puff INHALE RDAILY REPLACED BY [facility] Last Admin: 09/27/24 08:27 Dose: 2 puff Documented By: LANE Labs 09/27/24 06:40 09/27/24 06:40 Labs: Laboratory Results - last 24 hr 09/26/24 09/26/24 09/27/24 11:28 19:22 06:40 MCV 95.0 MCH 34.5 H MCHC 36.3 H RDW 16.8 H Plt Count 99 L D MPV 11.0 Absolute Nucleated RBC 0.000 Nucleated RBC % (auto) 0.0 Anion Gap 17 15 Estim Creat Clear Calc 121.5 129.3 Estimated GFR > 60 > 60 Random Glucose 138 H 107 Calcium 8.0 L 8.0 L Magnesium 1.3 L* 1.6 1.6 Total Bilirubin 2.2 H Direct Bilirubin 0.9 H AST 132 H ALT 79 H Alkaline Phosphatase 126 H Total Protein 5.7 L Albumin 2.8 L Assessment and Plan (1) Depressive disorder: Status: Acute (2) Alcohol abuse: Status: Acute (3) Acute hypokalemia: Status: Acute (4) Lower extremity edema: Status: Acute (5) Alcohol withdrawal: Status: Acute Plan Guanako Mccann is a 54 y/o man admitted with: Acute alcohol withdrawal with hx of alcohol abuse CIWA protocol Phenobarb protocol Thiamine, [facility] Addiction team Acute Hypomagnesemia + hypokalemia secondary to alcohol abuse Replete as needed. Continue to monitor electrolytes. Hold chlorthalidone. Bilateral lower extremity edema 2/2 hypoalbuminemia, stasis dermatitis, venous insufficiency Start spironolactone Elevate extremities negative for DVT LUCIO wrap and Ammonium lactate lotion Elevated LFTs secondary to alcohol abuse. Continue to monitor. We will need to abstain for alcohol consumption. Depression. Psych input appreciated, Consider antidepressant after withdrawal with Cymbalta 30 to start then increase to 60 bid as tolerated Chronic lung disease. Continue Spiriva. DuoNeb as needed. GERD. Continue PPI. Essential hypertension. consider anti-HTN meds if needed. Tobacco dependence. Tobacco cessation education. Nicotine patch. History of hypothyroidism. elevated TSH but normal T4. DVT prophylaxis: Lovenox Code status: Full Patient will need hospitalization overnight multiple electrolyte imbalances treatment with IV and PO supplementation and close monitoring of levels as well as cardiac monitoring. Patient also will need to received treatment with phenobarbital for alcohol withdrawal. Quality Stroke Does the patient have a stroke diagnosis?: No VTE Prior VTE?: No VTE Risk Level:: Medical - moderate - high VTE Device Contraindication: Treatment Not Indicated VTE Drug Contraindication: N/A - Med Ordered
[2024-09-27] MEDS: Potassium Chloride ER 20 MEQ TAB.ER.PRT 40 MEQ PO (11:55)
[2024-09-27] MEDS: HYDROmorphone HCl 1 MG/ML SYRINGE IVPUSH ×2 (12:16→20:57)
[2024-09-27] MEDS: ondansetron HCL 4 MG/2 ML VIAL IVPUSH (12:24)
[2024-09-27] MEDS: Acetaminophen 325 MG TABLET 650 MG PO (14:33)
[2024-09-27] MEDS: Melatonin 3 MG TABLET 6 MG PO (20:59)
[2024-09-27] MEDS: Tamsulosin HCL 0.4 MG CAPSULE PO (20:59)
[2024-09-27] MEDS: QUEtiapine Fumarate 50 MG TABLET PO (20:59)
[2024-09-27] MEDS: Ammonium Lactate 12 % Lotion 226 GM BOTTLE 1 APPL TOPICAL (21:09)
[2024-09-27] MEDS: traMADoL HCL 50 MG TABLET PO (23:24)
[2024-09-28] VITALS (9 sets, daily range): BP systolic 113–139; BP diastolic 70–83; PULSE 73–107; RESP 16–18; TEMP 36.3–37.2; O2SAT 94–99
[2024-09-28] MEDS: Nicotine Polacrilex Lozenge 2 MG LOZENGE BUCCAL ×4 (00:59→22:17)
--- NOTE | 2024-09-28 01:00 | PC.NURSE ---
VMT alerted this nurse of patient using personal albuterol inhaler numerously. patient also seen inhaling a small, dark device under blanket. this nurse educated patient on use of home meds and overuse of albuterol. explained to patient diminishing therapeutic effect of overusing albuterol and impact on potassium. pt also informed of anti smoking policy and fire hazard. pt verbally states understanding. pt confirms needs are met at this time. plan of care ongoing
[2024-09-28] MEDS: HYDROmorphone HCl 1 MG/ML SYRINGE IVPUSH (02:48)
[2024-09-28] MEDS: traMADoL HCL 50 MG TABLET PO ×2 (05:44→20:04)
[2024-09-28] MEDS: Albuterol Sulfate 90 MCG 8 GM INHALER 2 PUFF INHALE (05:46)
[2024-09-28 07:09] LABS: Alanine Aminotransferase 79 U/L (0-40); Alkaline Phosphatase 128 U/L (39-117); Anion Gap 13 (12-20); Aspartate Amino Transferase 104 U/L (5-37); Bilirubin Direct 0.8 mg/dL (0.0-0.5); Blood Urea Nitrogen 3 mg/dL (9-16); Calcium 8.1 mg/dL (8.4-10.2); Carbon Dioxide 30 mmol/L (22-29); Chloride 96 mmol/L (96-108); Creatinine Clr Calc Pharmacy 124.5; Estimated Glomerular Filt Rate > 60; Glucose Random 93 mg/dL (60-115); Potassium 3.3 mmol/L (3.3-5.1); Sodium 136 mmol/L (135-145); Total Protein 6.2 g/dL (6.5-8.0)
[2024-09-28] MEDS: Tiotropium Bromide 2.5 mcg 1 PUFF/2.5 MCG MIST.INHAL 2 PUFF INHALE (07:42)
[2024-09-28] MEDS: Fluticasone/Vilanterol 100/25 BLST.W.DEV 1 PUFF INHALE (07:43)
[2024-09-28] MEDS: Magnesium Oxide 400 MG TABLET 800 MG PO ×2 (09:39→20:05)
[2024-09-28] MEDS: diazePAM 5 MG TABLET PO (09:39)
[2024-09-28] MEDS: amLODIPine Besylate 5 MG TABLET PO (09:39)
[2024-09-28] MEDS: Thiamine HCL 100 MG TABLET PO (09:39)
[2024-09-28] MEDS: Spironolactone 25 MG TABLET 12.5 MG PO (09:40)
[2024-09-28] MEDS: Omeprazole 40 MG CAPSULE.DR PO (09:40)
[2024-09-28] MEDS: PARoxetine HCL 40 MG TABLET PO (09:40)
[2024-09-28] MEDS: PHENobarbitaL 30 MG TABLET PO ×2 (09:40→20:06)
[2024-09-28] MEDS: Multivitamin TABLET 1 TAB PO ×3 (09:40→09:56)
[2024-09-28] MEDS: Potassium Chloride Packet 20 MEQ PACKET 40 MEQ PO ×3 (09:41→20:06)
[2024-09-28] MEDS: Nicotine 14 MG PATCH.TD24 TRANSDERMA (09:41)
[2024-09-28] MEDS: 0.9 % Sodium Chloride Flush 3 ML SYRINGE IVFLUSH ×2 (09:44→20:07)
[2024-09-28] MEDS: Enoxaparin Sodium 40 MG/0.4 ML SYRINGE SUBCUT (09:45)
[2024-09-28] MEDS: Folic Acid 1 MG TABLET PO (09:51)
--- NOTE | 2024-09-28 09:51 | MHC.RECOVRN ---
Met with pt to follow up and discuss LUCAS. Educated pt on different medication available for AUD. Pt is interested in naltrexone and initiating care at the [facility]. Denies other questions or concerns for t/w. Discussed with Sarahi Plascencia APRN. [facility] appt 10/05/24 10:00AM.
[2024-09-28] MEDS: Ammonium Lactate 12 % Lotion 226 GM BOTTLE 1 APPL TOPICAL (09:52)
--- NOTE | 2024-09-28 10:12 | MHC.CM.PN ---
Per ROUNDS discussion, Patient is not yet medically cleared for dc (still withdrawing); home is the goal and CM will continue to follow.
--- NOTE | 2024-09-28 10:25 | MHC.RECOVSUP ---
pt agreed to referral. Sent to Dipak Mcintosh at [facility] office via email. pt served 22yrs [employer]- gave his Lev Marr's contact info who works a nonprofit for 's struggling with LISSETH. pt plans on doing the marijuana maintenance plan when he gets out, but does also have appointment with [facility] which I delivered and went over. pt is still going through WD and is self-described as sleep deprived from over night room traffic, in an unpleasant/irritable mood.
--- NOTE | 2024-09-28 10:56 | P.PNIM_ITS ---
Subjective Subjective Date of Service: 09/28/24 Interval History: Seen and evaluated this morning feels little better today but still anxious and tachycardid tonight will be the 3rd night after stopping alcohol no other overnight events Review of Systems Review of Systems: Yes all other systems are reviewed and are negative Physical Exam 2 Vital Signs: Vital Signs: Last Vital Signs Temp 98.9 F 09/28/24 07:28 Pulse 73 09/28/24 07:46 Resp 18 09/28/24 07:46 BP 118/83 09/28/24 07:28 Pulse Ox 94 09/28/24 07:28 O2 Del Method Room Air 09/28/24 07:28 BMI result Body Mass Index 29.8 Const: Other: Constitutional : Awake, interactive, distressed, anxious Neck : Normal inspection, Supple Cardiovascular : RRR, no JVP, no lower extremity edema Respiratory : good bilateral air entry, no crackles, wheezes or rhonchi Gastrointestinal: soft, lax, Normal bowel sounds, Non tender Skin : Warm, Dry Neurological : Alert & oriented x3, No focal deficit , mild tremors Objective Data Active Medications Acetaminophen (Acetaminophen 325 Mg Tablet) 650 mg PO Q6H PRN PRN Reason: Pain, Mild (Pain Scale 1-3) Last Admin: 09/27/24 14:33 Dose: 650 mg Documented By: HOSSEIN Albuterol Sulfate (Albuterol Sulfate 90 Mcg 8 Gm Inhaler) 2 puff INHALE Q4H PRN PRN Reason: shortness of breath or wheezing Last Admin: 09/28/24 05:46 Dose: 2 puff Documented By: VIOLETTA Albuterol/Ipratropium (Albuterol/Iprat 2.5/0.5mg 3 Ml Ampul.Neb) 3 ml INHALE Q4H PRN PRN Reason: shortness of bresth Last Admin: 09/26/24 17:27 Dose: 3 ml Documented By: MARYANNE Amlodipine Besylate (Amlodipine Besylate 5 Mg Tablet) 5 mg PO DAILY [facility]; Protocol Last Admin: 09/28/24 09:39 Dose: 5 mg Documented By: AL Diazepam (Diazepam 5 Mg Tablet) 5 mg PO DAILY [facility] Last Admin: 09/28/24 09:39 Dose: 5 mg Documented By: AL Enoxaparin Sodium (Enoxaparin Sodium 40 Mg/0.4 Ml Syringe) 40 mg SUBCUT Q24H [facility] Last Admin: 09/28/24 09:45 Dose: 40 mg Documented By: AL Fluticasone/Vilanterol (Fluticasone/Vilanterol 100/25 Blst.W.Dev) 1 puff INHALE RDAILY [facility] Last Admin: 09/28/24 07:43 Dose: 1 puff Documented By: JEAN Folic Acid (Folic Acid 1 Mg Tablet) 1 mg PO DAILY [facility] Last Admin: 09/28/24 09:51 Dose: 1 mg Documented By: AL Hydromorphone HCl (Hydromorphone Hcl 1 Mg/Ml Syringe) 1 mg IVPUSH Q4H PRN; Protocol PRN Reason: Pain, Severe (Pain Scale 7-10) Last Admin: 09/28/24 02:48 Dose: 1 mg Documented By: VIOLETTA Lactic Acid (Ammonium Lactate 12 % Lotion 226 Gm Bottle) 1 appl TOPICAL BID [facility]; Protocol Last Admin: 09/28/24 09:52 Dose: 1 appl Documented By: AL Magnesium Oxide (Magnesium Oxide 400 Mg Tablet) 800 mg PO BID [facility] Last Admin: 09/28/24 09:39 Dose: 800 mg Documented By: AL Melatonin (Melatonin 3 Mg Tablet) 6 mg PO BEDTIME PRN PRN Reason: Insomnia Last Admin: 09/27/24 20:59 Dose: 6 mg Documented By: VIOLETTA Multivitamins/Vitamin C (Multivitamin Tablet) 1 tab PO DAILY [facility] Last Admin: 09/28/24 09:52 Dose: 1 tab Documented By: AL Multivitamins/Vitamin C (Multivitamin Tablet) 1 tab PO DAILY [facility] Last Admin: 09/28/24 09:56 Dose: 1 tab Documented By: AL Nicotine (Nicotine 14 Mg Patch.Td24) 14 mg TRANSDERMA DAILY [facility] Last Admin: 09/28/24 09:41 Dose: 14 mg Documented By: AL Nicotine Polacrilex (Nicotine Polacrilex Lozenge 2 Mg Lozenge) 2 mg BUCCAL Q4H PRN PRN Reason: Nicotine Cravings Last Admin: 09/28/24 05:44 Dose: 2 mg Documented By: VIOLETTA Omeprazole (Omeprazole 40 Mg Capsule.) 40 mg PO DAILY [facility] Last Admin: 09/28/24 09:40 Dose: 40 mg Documented By: AL Ondansetron HCl (Ondansetron Hcl 4 Mg/2 Ml Vial) 4 mg IVPUSH Q6H PRN PRN Reason: Nausea and Vomiting Last Admin: 09/27/24 12:24 Dose: 4 mg Documented By: MARYANNE Paroxetine HCl (Paroxetine Hcl 40 Mg Tablet) 40 mg PO DAILY [facility] Last Admin: 09/28/24 09:40 Dose: 40 mg Documented By: AL Pharmacy Consult (Consult Rx Etoh Phenob Im/Po) 1 each MISCELLANE ONCE PRN; Protocol PRN Reason: Consult order Phenobarbital (Phenobarbital 30 Mg Tablet) 30 mg PO BID [facility] Stop: 09/29/24 21:01 Last Admin: 09/28/24 09:40 Dose: 30 mg Documented By: AL Phenobarbital (Phenobarbital 30 Mg Tablet) 30 mg PO DAILY [facility] Stop: 10/01/24 09:01 Phenobarbital Sodium (Phenobarbital Sodium 130 Mg/Ml Vial) 130 mg IM ONCE PRN PRN Reason: Alcohol Withdrawal Potassium Chloride (Potassium Chloride Packet 20 Meq Packet) 40 meq PO TID [facility] Stop: 09/28/24 15:00 Last Admin: 09/28/24 09:41 Dose: 40 meq Documented By: AL Quetiapine Fumarate (Quetiapine Fumarate 50 Mg Tablet) 50 mg PO BID PRN PRN Reason: anxiety/restlessness Last Admin: 09/27/24 20:59 Dose: 50 mg Documented By: VIOLETTA Sodium Chloride (0.9 % Sodium Chloride Flush 3 Ml Syringe) 3 ml IVFLUSH [facility] Last Admin: 09/28/24 09:44 Dose: 3 ml Documented By: AL Spironolactone (Spironolactone 25 Mg Tablet) 12.5 mg PO DAILY [facility]; Protocol Last Admin: 09/28/24 09:40 Dose: 12.5 mg Documented By: AL Tamsulosin HCl (Tamsulosin Hcl 0.4 Mg Capsule) 0.4 mg PO BEDTIME [facility] Last Admin: 09/27/24 20:59 Dose: 0.4 mg Documented By: VIOLETTA Thiamine HCl (Thiamine Hcl 100 Mg Tablet) 100 mg PO DAILY [facility] Last Admin: 09/28/24 09:39 Dose: 100 mg Documented By: AL Tiotropium [place] (Tiotropium [place] 2.5 Mcg 1 Puff/2.5 Mcg Mist.Inhal) 2 puff INHALE RDAILY [facility] Last Admin: 09/28/24 07:42 Dose: 2 puff Documented By: JEAN Tramadol HCl (Tramadol Hcl 50 Mg Tablet) 50 mg PO Q4H PRN PRN Reason: Pain, Moderate(Pain Scale 4-6) Last Admin: 09/28/24 05:44 Dose: 50 mg Documented By: VIOLETTA Labs 09/27/24 06:40 09/28/24 05:51 Labs: Laboratory Results - last 24 hr 09/28/24 05:51 Anion Gap 13 Estim Creat Clear Calc 124.5 Estimated GFR > 60 Random Glucose 93 Calcium 8.1 L Total Bilirubin 2.0 H Direct Bilirubin 0.8 H AST 104 H ALT 79 H Alkaline Phosphatase 128 H Total Protein 6.2 L Albumin 3.0 L Assessment and Plan (1) Depressive disorder: Status: Acute (2) Acute hypokalemia: Status: Acute (3) Alcohol abuse: Status: Acute (4) Alcohol withdrawal: Status: Acute Plan Guanako Mccann is a 54 y/o man admitted with: Acute alcohol withdrawal with hx of alcohol abuse CIVA protocol continue Phenobarb protocol add PRN Phenobarb as needed Thiamine, [facility] Addiction team Acute Hypomagnesemia + hypokalemia secondary to alcohol abuse resolved, Continue to monitor electrolytes. Hold chlorthalidone. Bilateral lower extremity edema 2/2 hypoalbuminemia, stasis dermatitis, venous insufficiency increase spironolactone, start lasix Elevate extremities negative for DVT LUCIO wrap and Ammonium lactate lotion Elevated LFTs secondary to alcohol abuse. Continue to monitor. We will need to abstain for alcohol consumption. Depression. Psych input appreciated, Consider antidepressant after withdrawal start Cymbalta 30 then increase to 60 bid as tolerated Chronic lung disease. Continue Spiriva. DuoNeb as needed. GERD. Continue PPI. Essential hypertension. consider anti-HTN meds if needed. Tobacco dependence. Tobacco cessation education. Nicotine patch. History of hypothyroidism. elevated TSH but normal T4. DVT prophylaxis: Lovenox Code status: Full Patient will need hospitalization overnight multiple electrolyte imbalances treatment with IV and PO supplementation and close monitoring of levels . Patient also will need to received treatment with phenobarbital for alcohol withdrawal. Quality Stroke Does the patient have a stroke diagnosis?: No VTE Prior VTE?: No VTE Risk Level:: Medical - moderate - high VTE Device Contraindication: Treatment Not Indicated VTE Drug Contraindication: N/A - Med Ordered
[2024-09-28] MEDS: Furosemide 20 MG TABLET PO (12:22)
[2024-09-28] MEDS: QUEtiapine Fumarate 50 MG TABLET PO ×2 (17:10→22:16)
[2024-09-28] MEDS: Tamsulosin HCL 0.4 MG CAPSULE PO (20:05)
[2024-09-28] MEDS: Melatonin 3 MG TABLET 6 MG PO (22:16)
[2024-09-28] MEDS: Zolpidem Tartrate 5 MG TABLET PO (22:17)
[2024-09-29] MEDS: LORazepam 2 MG/ML VIAL 1 MG IVPUSH (03:06)
[2024-09-29 03:15] VITALS: BP 124/80; PULSE 92; RESP 18; TEMP 36.1; O2SAT 95
[2024-09-29] MEDS: traMADoL HCL 50 MG TABLET PO (07:30)
[2024-09-29] MEDS: Fluticasone/Vilanterol 100/25 BLST.W.DEV 1 PUFF INHALE (07:39)
[2024-09-29] MEDS: Tiotropium Bromide 2.5 mcg 1 PUFF/2.5 MCG MIST.INHAL 2 PUFF INHALE (07:39)
[2024-09-29 07:41] VITALS: PULSE 113; RESP 18; O2SAT 98
[2024-09-29] MEDS: PARoxetine HCL 40 MG TABLET PO (07:43)
[2024-09-29] MEDS: PHENobarbitaL 30 MG TABLET PO (07:43)
[2024-09-29] MEDS: Omeprazole 40 MG CAPSULE.DR PO (07:43)
[2024-09-29] MEDS: Folic Acid 1 MG TABLET PO (07:43)
[2024-09-29] MEDS: diazePAM 5 MG TABLET PO (07:43)
[2024-09-29] MEDS: Multivitamin TABLET 1 TAB PO (07:43)
[2024-09-29] MEDS: Furosemide 20 MG TABLET PO (07:43)
[2024-09-29] MEDS: Spironolactone 25 MG TABLET PO (07:43)
[2024-09-29] MEDS: Magnesium Oxide 400 MG TABLET 800 MG PO (07:44)
[2024-09-29] MEDS: Nicotine 14 MG PATCH.TD24 TRANSDERMA (07:44)
[2024-09-29] MEDS: Enoxaparin Sodium 40 MG/0.4 ML SYRINGE SUBCUT (07:44)
[2024-09-29] MEDS: Potassium Chloride Packet 20 MEQ PACKET 40 MEQ PO (07:45)
[2024-09-29 07:48] VITALS: BP 122/78; PULSE 98; RESP 16; TEMP 36.8; O2SAT 96
[2024-09-29] MEDS: 0.9 % Sodium Chloride Flush 3 ML SYRINGE IVFLUSH (07:48)
[2024-09-29 08:22] LABS: Anion Gap 13 (12-20); Blood Urea Nitrogen < 3 mg/dL (9-16); Calcium 8.6 mg/dL (8.4-10.2); Carbon Dioxide 29 mmol/L (22-29); Chloride 99 mmol/L (96-108); Creatinine Clr Calc Pharmacy 127.7; Estimated Glomerular Filt Rate > 60; Glucose Random 87 mg/dL (60-115); Potassium 3.5 mmol/L (3.3-5.1); Sodium 137 mmol/L (135-145)
[2024-09-29 09:35] LABS: Adenovirus F 40/41 Not Detected (Not Detect.); Astrovirus Not Detected (Not Detect.); Campylobacter Not Detected (Not Detect.); Cryptosporidium Not Detected (Not Detect.); Cyclospora cayetanensis Not Detected (Not Detect.); E. coli EAEC Not Detected (Not Detect.); E. coli EPEC Not Detected (Not Detect.); E. coli ETEC Not Detected (Not Detect.); E. coli STEC Not Detected (Not Detect.); Entamoeba histolytica Not Detected (Not Detect.); Giardia lamblia Not Detected (Not Detect.); Norovirus GI/GII Not Detected (Not Detect.); Plesiomonas shigelloides Not Detected (Not Detect.); Rotavirus A Not Detected (Not Detect.); Salmonella Not Detected (Not Detect.); Sapovirus Not Detected (Not Detect.); Shigella sp./EIEC Not Detected (Not Detect.); Vibrio Not Detected (Not Detect.); Vibrio Cholerae Not Detected (Not Detect.); Yersinia enterocolitica Not Detected (Not Detect.)
[2024-09-29] MEDS: Thiamine HCL 100 MG TABLET PO (09:38)
[2024-09-29] MEDS: amLODIPine Besylate 5 MG TABLET PO (09:40)
--- NOTE | 2024-09-29 12:07 | P.DS_ITS ---
DS: Providers Provider Date of Service: 09/29/24 Date of admission: 09/26/24 01:50 Date of discharge: 09/29/24 Primary care physician: ELIAN LooneyPRichard Consults: 09/26/24 01:59 Consult to Psychiatry Routine Consulting Provider: Psych Covering Reason for consultation: severe depression,alcohol abuse,detox Has provider been notified: No 09/26/24 02:58 Addiction Medicine Routine Consulting Provider: Addiction Covering Reason for consultation: Alcohol abuse Has provider been notified: No DS: Diagnosis Discharge Diagnosis (1) Depressive disorder: Status: Acute (2) Acute hypokalemia: Status: Acute (3) Alcohol abuse: Status: Acute (4) Alcohol withdrawal: Status: Acute (5) Lower extremity edema: Status: Acute (6) Hypomagnesemia: Status: Acute DS: Summary Hospital Course Hospital Course: Admission note HPI Guanako Mccann is a 54 years old man with past medical history significant for alcohol abuse, GERD/gastritis, portal gastropathy, depression, essential hypertension, chronic lung disease, mood disorder and chronic pain presents to the emergency department looking for detox assistance. He is also complaining of lower extremity swelling and redness. He denied edema to the genitalia. He continues to drink alcohol, about 1 pt of whiskey daily and also smokes marijuana. Last time he drank alcohol was prior to presenting to the emergency department. Denied illicit drug use. He is also tobacco smoker. He did not report any acute abdominal pain but distention. He also complained of nausea and chronic diarrhea. He was prescribed to take chlorthalidone in August of this year. He said that he has not been taking any of his medication over the last week. Patient is a vague historian. In the ED, he was found to have stable vital signs. Blood workup showed no leukocytosis. Hemoglobin is 13.9 and platelets 136. INR is 1.0. Potassium is 2.2, chloride 98, magnesium 1.2, CO2 93 and creatinine 0.87. LFTs are elevated. Troponin is 15.2, albumin 3.4, lipase 35 and normal BNP. ETOH level is 351. Viral testing for COVID-19, influenza and RSV is negative. CXR is unremarkable. ECG showed normal sinus rhythm with a heart rate of 95 beats per minutes and nonspecific ST changes with normal QT (QTc 334 ms). Last TTE is normal. ED tx: Ativan 2 mg p.o., oxycodone 10 mg p.o., KCl 40 mEq p.o., KCl IV, mag nesium 2 g IV, thiamine 500 mg IV, folic acid 1 mg p.o., morphine 4 mg IV, nicotine patch 21 mcg patch), phenobarbital 325 mg IM Hospital course The patient was admitted for treatment of Acute alcohol withdrawal with hx of alcohol abuse as he was saking detox. Monitored on CIWA protocol and treated with Phenobarb protocol with PRN Phenobarb as needed as he was evaluated by recovery team who provided outpatient resources. Thiamine, MV. He needed few extra doses of Phenobarb IM x2 with good response. He feels better at time of discharge. insisting he will not drink again and planning to follow with outpatient resources. will be sent on Thiamin supplement. He also had Acute Hypomagnesemia and hypokalemia secondary to alcohol abuse which both resolved after receiving replacement. Chlorthalidone held and will be restarted on discharge. to repeat blood work next week. Has Bilateral lower extremity edema as a result of hypoalbuminemia, stasis dermatitis, venous insufficiency. Started on Spironolactone and lasix with good respnse. negative US study for DVT, Had LUCIO wrap and Ammonium lactate lotion which will be sent at discrge. Elevated LFTs secondary to alcohol abuse. stable. He needs to abstain for alcohol consumption. Depression. Psych input appreciated, start Cymbalta 30 then increase to 60 bid as tolerated as outpatient. Paroxetine discontinued. To follow with PCP in 2 weeks for dose adjustment. Discharge plan Start Spironolactone to help with edema Ammonium lactate lotion for dry skin Magnesium and Thiamine supplement We advise you complete abstinence from Alcohol Stop Paroxetine and Start Cymbalta. To follow up with PCP for dosing up the medication as tolerated within the next 2 weeks Time Attestation Discharge Coordination Time (in mins): 42 Quality: Safe Use of Opioids Does Pt have an Active Cancer Diagnosis on the Problem List?: No Quality: Stroke Does the patient have a stroke diagnosis?: No Physical Exam Vital Signs: Vital Signs: Last Vital Signs Temp 98.3 F 09/29/24 07:48 Pulse 98 09/29/24 07:48 Resp 16 09/29/24 07:48 BP 122/78 09/29/24 07:48 Pulse Ox 96 11/19/24 07:48 O2 Del Method Room Air 09/29/24 07:48 BMI result Body Mass Index 29.8 Const: Other: Constitutional : Awake, interactive, not in distress Neck : Normal inspection, Supple Cardiovascular : RRR, no JVP, no lower extremity edema Respiratory : good bilateral air entry, no crackles, wheezes or rhonchi Gastrointestinal: soft, lax, Normal bowel sounds, Non tender Skin : Warm, Dry Neurological : Alert & oriented x3, No focal deficit , no tremors DS: Data Data Completed and Pending Completed studies during hospitalization [Text1]: Procedures Detoxification Services for Substance Abuse Treatment (10/19/23) Excision of Stomach, Pylorus, Via Natural or Artificial Opening Endoscopic, Diagnostic (10/19/23) Extraction of Esophagus, Via Natural or Artificial Opening Endoscopic, Diag nostic (10/19/23) Labs on day of discharge: Laboratory Results - last 24 hr 09/28/24 09/29/24 22:24 07:17 Sodium 137 Potassium 3.5 Chloride 99 Carbon Dioxide 29 Anion Gap 13 BUN < 3 L Creatinine 0.79 Estim Creat Clear Calc 127.7 Estimated GFR > 60 Random Glucose 87 Calcium 8.6 D Stl C. cayetanensis PCR Not Detected Stool Rotavirus A PCR Not Detected Stl Adenov F 40/41 PCR Not Detected Stool Astrovirus (PCR) Not Detected Stool Campylobacter PCR Not Detected Stool Cryptosporidium PCR Not Detected Stl Sh Tox Pr E STEC PCR Not Detected Stool E coli O157 PCR Not applicable Stl Enterotoxigenic E PCR Not Detected Stool EPEC (PCR) Not Detected Stool EAEC (PCR) Not Detected Stl E. histolytica PCR Not Detected Stool Giardia Lamblia PCR Not Detected Stl P. shigelloides PCR Not Detected Stool Salmonella PCR Not Detected Stool Sapovirus (PCR) Not Detected Stl Shigella/EIEC PCR Not Detected St Y.enterocolitica PCR Not Detected Stool Vibrio (PCR) Not Detected Stl Vibrio cholerae PCR Not Detected Stl Norovirus GI/GII PCR Not Detected Imaging Chest x-ray: Radiologist's impression: ITS Impressions Toe X-Ray 09/25/24 22:17 IMPRESSION: Unremarkable examination. Electronically signed by: Rc Govea DO 09/25/2024 11:54 PM [facility] Chest X-Ray 09/25/24 22:36 IMPRESSION: Unremarkable examination. Electronically signed by: Jose Kee MD 09/25/2024 11:23 PM EST RP Venous Duplex 09/26/24 07:44 IMPRESSION: 1. No evidence of deep venous thrombosis involving the bilateral lower extremities. 2. Bilateral lower legs subcutaneous edema. 3. Left inguinal lymph nodes measuring up to 2.7 and 1.6 cm. Electronically signed by: Lex Ramirez MD 09/26/2024 08:54 AM EST RP Discharge Plan Discharge Anticipated Discharge Date/Time: 09/29/24 12:01 Patient Disposition: Home, Self-Care Discharge Diagnosis: Alcohol abuse and withdrawal Depression Electrolytes imbalance [facility]: [facility] 10/05/2024 10AM [Other] - 1 Week Jose Owen FNP-BC [Primary Care Provider] - 1 Week Discharge Medications: New ammonium lactate 12 % Lotion 1 appl topical BID Qty: 400 0RF Protocol: Apply to: Apply to: lower extremities spironolactone 25 mg Tablet 25 mg PO DAILY Qty: 90 0RF Protocol: Hold for SBP< HOLD for SBP < : 90 magnesium oxide 400 mg (241.3 mg magnesium) Tablet 400 mg PO BID Qty: 60 0RF thiamine mononitrate (vit B1) 100 mg Tablet 100 mg PO DAILY Qty: 90 0RF duloxetine [Cymbalta] 30 mg capsule,delayed release(DR/EC) 30 mg PO DAILY Qty: 90 0RF Continued fluticasone propion-salmeterol [Advair Diskus] 250-50 mcg/dose blister with device 1 inh inhalation BID 30 Days Qty: 60 2RF amlodipine 5 mg tablet 5 mg PO DAILY Qty: 90 4RF Rx Instructions: Schedule next PCP appt for future refills chlorthalidone 25 mg tablet 25 mg PO DAILY Qty: 30 3RF quetiapine 50 mg tablet 50 mg PO BEDTIME PRN (Reason: Sleep) albuterol sulfate [Ventolin HFA] 90 mcg/actuation HFA aerosol inhaler 2 puff inhalation Q4H PRN (Reason: shortness of breath or wheezing) multivitamin Tablet 1 tab PO DAILY nicotine 14 mg/24 hr Patch 24 Hour 1 patch TRANSDERMAL DAILY cetirizine 10 mg Tablet 10 mg PO DAILY potassium chloride 10 mEq Tablet Extended Release 10 meq PO DAILY tamsulosin 0.4 mg Capsule 0.4 mg PO BEDTIME nicotine (polacrilex) 2 mg Lozenge 2 mg BUCCAL Q4H PRN (Reason: Nicotine Cravings) Rx Instructions: max 20 pieces in 24 hrs omeprazole 40 mg capsule,delayed release(DR/EC) 40 mg PO DAILY@0630 omega-3 acid ethyl esters 1 gram capsule 1 cap PO DAILY Spiriva Respimat 2.5 mcg/actuation Mist 2 puff INHALATION DAILY (DME) BD Insulin Syringe 1 mL 25 gauge x 5/8 syringe See Rx Instructions .MEDSUPPLY Qty: 30 0RF Rx Instructions: As directed Discontinued paroxetine HCl 40 mg Tablet 40 mg PO DAILY Discharge Orders: Discharge Order (Routine); Ordered 09/29/24 Ordered By: Nela Durham Diet: Advance to usual diet Activity on Discharge: As tolerated Stand Alone Forms: Patient Portal Discharge page Print Language: Turkish Other Ambulatory Orders: Basic Metabolic Panel (Routine) Timeframe: 1 Week Facility: [facility] [place] - Location: Laboratory Ordered By: Nela Durham Magnesium (Routine) Timeframe: 1 Week Facility: [facility] [place] - Location: Laboratory Ordered By: Nela Durham Care Plan Goals: Start Spironolactone to help with edema Ammonium lactate lotion for dry skin Magnesium and Thiamine supplement We advise you complete abstinence from Alcohol Stop Paroxetine and Start Cymbalta. To follow up with PCP for dosing up the medication as tolerated within the next 2 weeks Health Concerns: Alcohol abuse Electrolytes imbalance Plan of Treatment: supplements Outpatient resources Depression management Assessment: as above
--- NOTE | 2024-09-29 12:28 | MHC.CM.PN ---
Pt is medically cleared for discharge home self-care, pt will transport home via [facility] shuttle.
== END 2024-09-29 13:59 | disposition home or self-care (01) | DRG 897 ==
LOC: HO.ED 23:51 → HO.EDOVER 09-26 02:00 → HO.IMC 09-26 07:42
PROVIDERS: Nurse Practitioner Family; Physician Assistant; Student in an Organized Health Care Education/Training Program; Admitting Provider Internal Medicine; Emergency Provider Internal Medicine; PCP Nurse Practitioner Family; Visit Provider Student in an Organized Health Care Education/Training Program
DX: F10.239 Alcohol dependence with withdrawal, unspecified (principal); E87.6 Hypokalemia; F10.229 Alcohol dependence with intoxication, unspecified; Y90.8 Blood alcohol level of 240 mg/100 ml or more; J98.4 Other disorders of lung; E83.42 Hypomagnesemia; K21.9 Gastro-esophageal reflux disease without esophagitis; I87.323 Chronic venous hypertension (idiopathic) with inflammation of bilateral lower extremity; F32.A Depression, unspecified; G89.29 Other chronic pain; E03.9 Hypothyroidism, unspecified; Z20.822 Contact with and (suspected) exposure to COVID-19; Z87.891 Personal history of nicotine dependence; Z79.51 Long term (current) use of inhaled steroids; Z79.899 Other long term (current) drug therapy
CPT/HCPCS: 0241U; 36415; 71045; 73660; 80048; 80053; 80076; 80307; 83690; 83735; 83880; 84132; 84436; 84443; 84484; 85025; 85027; 85610; 87507; 93005; 93970; 94640; 99285; J1171; J1650; J2060; J2270; J2405; J2560; J3411; J3475; J3480; S9485

== ENCOUNTER → 2024-09-25 22:13 | Outpatient (BNV) | payer OTHER, SELFPAY | PROVIDERS: Admitting Provider Internal Medicine; Emergency Provider Internal Medicine; PCP Nurse Practitioner Family; Visit Provider Internal Medicine Cardiovascular Disease | DX: R94.31 Abnormal electrocardiogram [ECG] [EKG] (principal); E87.6 Hypokalemia | CPT/HCPCS: 93010 ==

== ENCOUNTER → 2024-09-26 01:50 | Outpatient (BNV) | payer OTHER, SELFPAY | PROVIDERS: Admitting Provider Internal Medicine; Emergency Provider Internal Medicine; PCP Nurse Practitioner Family; Visit Provider Internal Medicine | DX: F32.A Depression, unspecified (principal); E87.6 Hypokalemia; F10.939 Alcohol use, unspecified with withdrawal, unspecified | CPT/HCPCS: 99222; 99232; 99239; 99499 ==

== ENCOUNTER → 2024-09-26 01:50 | Outpatient (BNV) | payer OTHER, SELFPAY | PROVIDERS: Admitting Provider Internal Medicine; Emergency Provider Internal Medicine; PCP Nurse Practitioner Family; Visit Provider Psychiatry & Neurology Psychiatry | DX: F32.1 Major depressive disorder, single episode, moderate (principal); F10.20 Alcohol dependence, uncomplicated | CPT/HCPCS: 99232 ==

== ENCOUNTER 2024-10-05 11:41 | Emergency (ER) | payer OTHER, SELFPAY ==
--- NOTE | ~2024-10-05 | XR_ITS ---
EXAMINATION: XR FOOT, LEFT CLINICAL INFORMATION: pain COMPARISON: Left foot September 25, 2024 TECHNIQUE: Three views of the left foot. FINDINGS: The bones and soft tissues are normal. No fracture. Alignment is anatomic. Joint spaces are maintained. XR/XR foot LT min 3V IMPRESSION: Normal left foot. Electronically signed by: Deng Lucero MD 10/05/2024 03:36 PM EST
[2024-10-05 11:46] VITALS: BP 145/102; PULSE 100; RESP 18; TEMP 36.8; O2SAT 98; BMI 29.6
--- NOTE | 2024-10-05 11:50 | ED.GENADULT ---
HPI - General Adult General Chief complaint: General Medical Stated complaint: foot infection Time Seen by Provider: 10/05/24 12:00 Source: patient and RN notes reviewed Mode of arrival: ambulatory Limitations: no limitations History of Present Illness ED Provider: Madelaine Gay PA-C HPI narrative: This is a 54-year-old male, with a past medical history of alcohol dependency, hypo magnesemia, PTSD, depression, hypertension, TBI, and dependent edema, who presents emergency department with complaints of left foot pain x2 days. Patient states that 2 days ago he awoke with left foot pain. He states that the pain has only increased in severity. He states that he has also noticed increased redness in warmth to his foot. He states that he is unable to fully bear weight on his left foot secondary to the pain. Denies history of similar symptoms in the past. No history of gout. He does report that he accidentally stubbed his left 4th toe 2 weeks ago, otherwise denies any trauma to his foot. MD complaint: Left foot pain Onset (ago): day(s) Radiation: non-radiation Severity: moderate Quality: aching Pain Consistency: constant Relieving factors: immobilization and rest Exacerbating factors: movement Associated symptoms: denies other symptoms Treatments prior to arrival: none Related Data Home Medications ?Medication ?Instructions ?Recorded ?Confirmed quetiapine 50 mg tablet 50 mg PO BEDTIME PRN Sleep 10/19/23 09/26/24 albuterol sulfate 90 mcg/actuation 2 puff inhalation Q4H PRN 09/26/24 09/26/24 aerosol inhaler (Ventolin HFA) shortness of breath or wheezing cetirizine 10 mg tablet 10 mg PO DAILY 09/26/24 09/26/24 multivitamin 1 tab PO DAILY 09/26/24 09/26/24 nicotine (polacrilex) 2 mg buccal 2 mg buccal Q4H PRN Nicotine 09/26/24 09/26/24 lozenge Cravings nicotine 14 mg/24 hr daily 1 patch transdermal DAILY 09/26/24 09/26/24 transdermal patch omega-3 acid ethyl esters 1 gram 1 cap PO DAILY 09/26/24 09/26/24 capsule omeprazole 40 mg capsule,delayed 40 mg PO DAILY@0630 09/26/24 09/26/24 release potassium chloride 10 mEq 10 meq PO DAILY 09/26/24 09/26/24 tablet,extended release tamsulosin 0.4 mg capsule 0.4 mg PO BEDTIME 09/26/24 09/26/24 tiotropium bromide 2.5 2 puff inhalation DAILY 09/26/24 09/26/24 mcg/actuation mist for inhalation (Spiriva Respimat) Previous Rx's ?Medication ?Instructions ?Recorded insulin syringe-needle U-100 1 mL #30 ea 03/27/23 25 gauge x 5/8 (BD Insulin Syringe) fluticasone 250 mcg-salmeterol 50 1 inh inhalation BID 30 days #60 ea 06/04/24 mcg/dose blistr powdr for inhalation (Advair Diskus) amlodipine 5 mg tablet 5 mg PO DAILY #90 tabs 06/30/24 chlorthalidone 25 mg tablet 25 mg PO DAILY #30 tabs 07/05/24 ammonium lactate 12 % lotion 1 appl topical BID #400 grams 09/29/24 duloxetine 30 mg capsule,delayed 30 mg PO DAILY #90 caps 09/29/24 release (Cymbalta) magnesium oxide 400 mg (241.3 mg 400 mg PO BID #60 tabs 09/29/24 magnesium) tablet spironolactone 25 mg tablet 25 mg PO DAILY #90 tabs 09/29/24 thiamine mononitrate (vit B1) 100 100 mg PO DAILY #90 tabs 09/29/24 mg tablet prednisone 20 mg tablet 40 mg (2 x 20 mg) PO DAILY 4 days 10/05/24 #8 tabs Allergies Allergy/AdvReac Type Severity Reaction Status Date / Time No Known Allergies Allergy Verified 10/05/24 11:47 [No Known Allergies*] Review of Systems Review of Systems: Yes all other systems are reviewed and are negative Constitutional: Constitutional: Reports as per HPI [facility] Past Medical History Medical History (Updated 10/05/24 @ 16:27 by ERIC Granado) Moderate persistent asthma Clubbing of nails Lumbar degenerative disc disease Right knee pain Primary osteoarthritis, right shoulder Right shoulder pain Cervicalgia Knee osteoarthritis 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 Daughter Alive and well Daughter Alive and well Brother Alive and well Social History Social History Household Members: None Housing: Condominium Do you presently have visiting nurse or other home services: No Alcohol intake: current Alcohol intake frequency: 3 or more drinks per day Alcohol type: hard liquor Comment: Pt refusing all alarms Patient Tobacco Use Status: Former Tobacco user Tobacco use type: Cigarette Cigarette Packs Per Day: 1 Cigarettes Per Day: 20.0 Years Smoked: quit cigaretters 8 years ago, once/month cigars & chewing tobacco e-Cigarette/Vaping Use: Currently Using Second Hand Smoke Exposure: No Substance Use Type: Marijuana Advance Directives: No Advance Directives Information Provided: Yes Do you have a plan to hurt others: No Plan service: No Current occupational status: employed 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 Cognitive needs: No Hearing needs: No Vision needs: No Physical Exam ED Vital Signs: Vital Signs - 24 hr 10/05/24 11:46 10/05/24 15:10 10/05/24 16:43 Temperature 98.2 F 98.1 F 98.1 F Pulse Rate 100 88 88 Respiratory Rate 18 16 16 Blood Pressure 145/102 H 112/88 112/88 Pulse Oximetry 98 96 96 Oxygen Delivery Method Room Air Room Air Room Air BMI result Body Mass Index 29.6 Const General: cooperative, comfortable and no acute distress Orientation/consciousness: patient oriented x3 Limitations: no limitations [facility] Head: Yes normal to inspection, Yes normocephalic and Yes atraumatic Ears: hearing grossly normal bilaterally General nose exam: Normal external nose present Face and sinus: Yes normal facial exam Mouth: Normal oral and palatal mucosa present, oropharynx normal and moist mucous membranes Throat: Yes posterior oropharynx normal Eyes General: appearance normal, both eyes and all related structures Eyelids: Yes eyelids normal Conjunctivae: conjunctivae normal Sclerae: sclerae normal Pupils: Equal, round and reactive pupils present EOM: EOMs intact bilaterally Neck Neck: Yes normal visual inspection, Yes full ROM and Yes no lymphadenopathy Lymphatic: no lymphadenopathy noted Chest Chest palpation & inspection: normal inspection of the chest Resp Effort & Inspection: normal respiratory effort and able to speak in complete sentences Auscultation: clear to auscultation bilaterally, no crackles, no rales, no rhonchi and no wheezes Cardio Rate: regular rate Rhythm: regular rhythm Heart sounds: S1 normal heart sound present and S2 normal heart sound present GI Inspection: Yes normal to inspection Skin General skin exam: no rashes or lesions noted Trauma: no lacerations or abrasions Wounds: no wounds Neuro General: patient oriented x3 and moves all extremities Cranial nerves: Yes Equal, round and reactive pupils present Extrem Other: Left foot, dorsal aspect, there is exquisite tenderness along the 1st distal phalange with erythema and warmth. This erythema warmth and tenderness extends to the dorsum of the left foot specifically overlying the distal 2nd 3rd and 4th metatarsal. Strong DP pulse. No calf tenderness. No peripheral edema noted. No open wounds or sores. Left 4th digit, distal aspect, there is a skin flap, with no surrounding erythema or warmth. General: Yes normal to inspection Right upper extremity: normal to inspection Left upper extremity: normal to inspection Right lower extremity: normal to inspection Left lower extremity: normal to inspection Course Course Course Narrative: RME performed by Emily Beebe PA-C. Patient is a 54 year old assigned male at presenting to the emergency department with left foot pain. Patient states his left central foot has been hurting and continues to hurt. Patient states he does not know of any trauma. Detailed physical exam and review of systems are deferred to the psychiatric clinician. Imaging ordered. Patient placed back in the waiting room pending room availability and results. Reevaluation(s) Reevaluation #1: X-ray returns, revealing no acute findings. Labs revealing no leukocytosis, inflammatory markers elevated with an ESR of 61, and CRP of 4.84, uric acid elevated at 8. Patient's symptoms consistent with acute gout flare-up. Will treat with a course of prednisone. Discussed strict return precautions. He understands and agrees with plan. He was medicated with his 1st dose of prednisone in the department prior to his departure. Patient stable for discharge. Medications Administered Discontinued Medications Generic Name Dose Route Start Last Admin Trade Name Freq PRN Reason Stop Dose Admin Acetaminophen 975 mg 10/05/24 12:37 10/05/24 13:04 Acetaminophen 325 Mg Tablet PO 10/05/24 12:38 975 mg ONCE ONE Administration Prednisone 50 mg 10/05/24 16:24 10/05/24 16:39 Prednisone 10 Mg Tablet PO 10/05/24 16:25 50 mg ONCE ONE Administration Medical Decision Making Medical Decision Making [facility] Narrative: This is a 54-year-old male, with a history of alcohol use disorder, who presents emergency department with complaints of left foot pain. On arrival, blood pressure mildly elevated at 140 5/102, all other vital signs within normal limits. He is afebrile, speaking in full sentences under no acute distress. Left foot is erythematous, and tender to palpation. No history of gout. Differential diagnoses include gouty arthritis, cellulitis, osteomyelitis. Plan: Labs, x-ray, pain management Differential Diagnosis Differential Diagnoses: The differential diagnosis associated with the presentation includes See above Admission/Observation Consideration of admission/observation: Escalation of care including admission/observation considered Lab Data [facility] Lab Attestation statement: I reviewed the patient's lab results. See course comment 10/05/24 13:17 10/05/24 13:17 Labs: Lab Results 10/05/24 Range/Units 13:17 WBC 9.6 (4.8-10.8) X10*3/uL RBC 4.43 L D (4.60-5.80) X10*6/uL Hgb 15.0 (14.0-18.0) g/dl Hct 43.2 D (42.0-52.0) % MCV 97.5 (80.0-98.0) fL MCH 33.9 H (27.0-33.0) pg MCHC 34.7 (31.0-36.0) g/dl RDW 15.5 (11.0-16.0) % Plt Count 441 H D (160-400) X10*3/uL MPV 9.8 (9.4-12.4) fL Immature Gran % (Auto) 0.5 H (0.0-0.4) % Neut % (Auto) 71.3 (45-73) % Lymph % (Auto) 11.0 L (20-40) % Metcalfe % (Auto) 16.1 H (2-11) % Eos % (Auto) 0.4 (0-4) % Baso % (Auto) 0.7 (0-2) % Lymph # (Auto) 1.1 L (1.2-4.9) X10*3/uL Metcalfe # (Auto) 1.5 H (0.1-1.2) X10*3/uL Eos # (Auto) 0.0 (0.0-0.4) X10*3/uL Baso # (Auto) 0.1 (0.0-0.2) X10*3/uL Abs Immat Gran (auto) 0.05 H (0.00-0.03) X10*3/uL Absolute Neuts (auto) 6.8 (2.0-8.3) x10*3/uL Absolute Nucleated RBC 0.000 (0.0-0.012) X10*3/uL Nucleated RBC % (auto) 0.0 (0.0-0.2) /100WBC Smear Tech's Comments VERIFIED ESR 61 H (0-15) MM/HR Sodium 135 (135-145) mmol/L Potassium 3.2 L (3.3-5.1) mmol/L Chloride 96 (96-108) mmol/L Carbon Dioxide 28 (22-29) mmol/L Anion Gap 14 (12-20) BUN 11 (9-16) mg/dL Creatinine 1.02 (0.5-1.4) mg/dL Estim Creat Clear Calc 101.4 Estimated GFR > 60 Random Glucose 96 (60-115) mg/dL Uric Acid 8.0 H (3.4-7.0) mg/dL Calcium 10.0 D (8.4-10.2) mg/dL Total Bilirubin 0.9 (0.0-1.0) mg/dL Direct Bilirubin 0.4 (0.0-0.5) mg/dL AST 57 H (5-37) U/L ALT 42 H (0-40) U/L Alkaline Phosphatase 108 (39-117) U/L C-Reactive Protein 4.84 H (< or = 0.50) mg/dL Total Protein 7.8 (6.5-8.0) g/dL Albumin 3.8 (3.5-5.0) g/dL Radiology Impression Discussion of test interpretation with radiology: I have reviewed the radiologist's reading. Radiologist Impression: EXAMINATION: XR FOOT, LEFT CLINICAL INFORMATION: pain COMPARISON: Left foot September 25, 2024 TECHNIQUE: Three views of the left foot. FINDINGS: The bones and soft tissues are normal. No fracture. Alignment is anatomic. Joint spaces are maintained. XR/XR foot LT min 3V IMPRESSION: Normal left foot. Electronically signed by: Deng Lucero MD 10/05/2024 03:36 PM EST Dictated By: Deng Lucero MD Discharge Plan Discharge Clinical Impression: Gout Patient Disposition: Home, Self-Care Instructions: Low Purine Diet (ED), Gout (ED) Additional Instructions: You were seen in the emergency department due to left foot pain. Your exam as well as your blood work is concerning for gout. Please take prescribed prednisone as directed. Finish the entire course even if your symptoms improve. Drink plenty of fluids get plenty of rest. Watch for any new or worsening symptoms including but not limited to increased redness, fevers, worsening range of motion. If any of these occur, please seek emergent care. Continue taking Tylenol as prescribed. Follow-up with your primary care physician. See attached forms for more information about gout as well as lifestyle modifications that you can have to help with pain. Prescriptions: New prednisone 20 mg tablet 40 mg PO DAILY 4 Days Qty: 8 0RF No Action fluticasone propion-salmeterol [Advair Diskus] 250-50 mcg/dose blister with device 1 inh inhalation BID 30 Days Qty: 60 2RF amlodipine 5 mg tablet 5 mg PO DAILY Qty: 90 4RF Rx Instructions: Schedule next PCP appt for future refills chlorthalidone 25 mg tablet 25 mg PO DAILY Qty: 30 3RF quetiapine 50 mg tablet 50 mg PO BEDTIME PRN (Reason: Sleep) albuterol sulfate [Ventolin HFA] 90 mcg/actuation HFA aerosol inhaler 2 puff inhalation Q4H PRN (Reason: shortness of breath or wheezing) multivitamin Tablet 1 tab PO DAILY nicotine 14 mg/24 hr Patch 24 Hour 1 patch TRANSDERMAL DAILY cetirizine 10 mg Tablet 10 mg PO DAILY potassium chloride 10 mEq Tablet Extended Release 10 meq PO DAILY tamsulosin 0.4 mg Capsule 0.4 mg PO BEDTIME nicotine (polacrilex) 2 mg Lozenge 2 mg BUCCAL Q4H PRN (Reason: Nicotine Cravings) Rx Instructions: max 20 pieces in 24 hrs omeprazole 40 mg capsule,delayed release(DR/EC) 40 mg PO DAILY@0630 omega-3 acid ethyl esters 1 gram capsule 1 cap PO DAILY Spiriva Respimat 2.5 mcg/actuation Mist 2 puff INHALATION DAILY ammonium lactate 12 % Lotion 1 appl topical BID Qty: 400 0RF Protocol: Apply to: Apply to: lower extremities spironolactone 25 mg Tablet 25 mg PO DAILY Qty: 90 0RF Protocol: Hold for SBP< HOLD for SBP < : 90 magnesium oxide 400 mg (241.3 mg magnesium) Tablet 400 mg PO BID Qty: 60 0RF thiamine mononitrate (vit B1) 100 mg Tablet 100 mg PO DAILY Qty: 90 0RF duloxetine [Cymbalta] 30 mg capsule,delayed release(DR/EC) 30 mg PO DAILY Qty: 90 0RF (DME) BD Insulin Syringe 1 mL 25 gauge x 5/8 syringe See Rx Instructions .MEDSUPPLY Qty: 30 0RF Rx Instructions: As directed Interventions: ED Discharge Assessment Last Done: 10/05/24 16:43 Discharge Date/Time: 10/05/24 16:44 Print Language: Urdu
[2024-10-05] MEDS: Acetaminophen 325 MG TABLET 975 MG PO (13:04)
[2024-10-05 13:23] LABS: Basophils Absolute Auto 0.1 X10*3/uL (0.0-0.2); Basophils Percent Auto 0.7 % (0-2); Eosinophils Percent Auto 0.4 % (0-4); Hematocrit 43.2 % (42.0-52.0); Imm Gran Abs Auto 0.05 X10*3/uL (0.00-0.03); Imm Gran Pct Auto 0.5 % (0.0-0.4); Lymphocytes Absolute Auto 1.1 X10*3/uL (1.2-4.9); MANUAL DIFF FLAG SCAN; Mean Corpuscular HGB Conc 34.7 g/dl (31.0-36.0); Mean Corpuscular Hemoglobin 33.9 pg (27.0-33.0); Mean Corpuscular Volume 97.5 fL (80.0-98.0); Mean Platelet Volume 9.8 fL (9.4-12.4); Monocytes Absolute Auto 1.5 X10*3/uL (0.1-1.2); Monocytes Percent Auto 16.1 % (2-11); Neutrophils Absolute Auto 6.8 x10*3/uL (2.0-8.3); Neutrophils Percent Auto 71.3 % (45-73); Platelet Count 441 X10*3/uL (160-400); Red Blood Count 4.43 X10*6/uL (4.60-5.80); Red Cell Distribution Width 15.5 % (11.0-16.0); SCAN SMEAR FLAG 1; White Blood Count 9.6 X10*3/uL (4.8-10.8)
[2024-10-05 13:37] LABS: Alanine Aminotransferase 42 U/L (0-40); Albumin Level 3.8 g/dL (3.5-5.0); Alkaline Phosphatase 108 U/L (39-117); Anion Gap 14 (12-20); Aspartate Amino Transferase 57 U/L (5-37); Bilirubin Direct 0.4 mg/dL (0.0-0.5); Bilirubin Total 0.9 mg/dL (0.0-1.0); Blood Urea Nitrogen 11 mg/dL (9-16); C Reactive Protein 4.84 mg/dL (< or = 0.50); Carbon Dioxide 28 mmol/L (22-29); Chloride 96 mmol/L (96-108); Creatinine Clr Calc Pharmacy 101.4; Estimated Glomerular Filt Rate > 60; Glucose Random 96 mg/dL (60-115); Potassium 3.2 mmol/L (3.3-5.1); Sodium 135 mmol/L (135-145); Total Protein 7.8 g/dL (6.5-8.0)
[2024-10-05 13:40] LABS: SLIDE REVIEW VERIFIED
[2024-10-05 14:19] LABS: Erythrocyte Sedimentation Rate 61 MM/HR (0-15)
[2024-10-05 15:10] VITALS: BP 112/88; PULSE 88; RESP 16; TEMP 36.7; O2SAT 96
[2024-10-05] MEDS: predniSONE 10 MG TABLET 50 MG PO (16:39)
[2024-10-05 16:43] VITALS: BP 112/88; PULSE 88; RESP 16; TEMP 36.7; O2SAT 96
== END 2024-10-05 16:44 | disposition home or self-care (01) ==
PROVIDERS: Physician Assistant Medical; Emergency Provider Emergency Medicine; PCP Nurse Practitioner Family
DX: M10.9 Gout, unspecified (principal); M79.672 Pain in left foot; E03.9 Hypothyroidism, unspecified; Z79.899 Other long term (current) drug therapy
CPT/HCPCS: 36415; 73630; 80048; 80076; 84550; 85025; 85652; 86140; 87040; 99283

== ENCOUNTER 2024-11-20 09:54 | Day surgery (SDC) | payer OTHER, SELFPAY ==
[2024-11-18 14:11] VITALS: BMI 30.3
--- NOTE | 2024-11-19 09:46 | P.CONAN_ITS ---
Documented by User: Jeannie Acuna NP 11/19/24 11:51 HPI - Anesthesia Eval Consult details Narrative: 54yo M for Upper Endoscopy and Colonoscopy Heavy ETOH PMFSH Active Problems Active Problems: All Active Problems Ascending aorta dilatation (Acute) Edema (Acute) SOB (shortness of breath) (Acute) Ascites (Acute) Anemia (Acute) Alcohol abuse (Acute) Upper respiratory tract infection (Acute) Chronic pain (Acute) Tachycardia (Acute) Ecchymoses, spontaneous (Acute) Biceps rupture, distal (Acute) Primary osteoarthritis, right shoulder (Acute) Right shoulder pain (Acute) Bilateral hand numbness (Acute) Right hand pain (Acute) Weight loss (Acute) Stress (Acute) Tachycardia (Acute) Nausea (Acute) Abdominal discomfort (Acute) Hypokalemia (Acute) Acute sinus infection (Acute) Right knee pain (Acute) Primary osteoarthritis, right shoulder (Acute) Right shoulder pain (Acute) Cervicalgia (Acute) Knee osteoarthritis (Acute) Dyslipidemia (Acute) Elevated serum creatinine (Acute) SHAWANDA (obstructive sleep apnea) (Acute) Right hip pain (Acute) AVN (avascular necrosis of bone) (Acute) Right hand pain (Acute) Physical exam (Acute) Bilateral lower extremity edema (Acute) Abdominal pain (Acute) Abdominal distention (Acute) Acute sinusitis (Acute) Bilateral hip pain (Acute) PTSD (post-traumatic stress disorder) (Acute) Fall (Acute) Upper back pain (Acute) Neck injury (Acute) Sinusitis (Acute) At risk for prolonged QT interval syndrome (Acute) Nocturia more than twice per night (Acute) Hypogonadism in male (Acute) Abdominal bloating (Acute) High triglycerides (Acute) Gastroesophageal reflux disease (Acute) Supraclavicular mass (Acute) Patellofemoral pain syndrome of both knees (Acute) Sciatica (Acute) Degenerative arthritis of knee, bilateral (Acute) Dyslipidemia (Acute) Elevated liver enzymes (Acute) Hypokalemia (Acute) Lesion of neck (Acute) HTN (hypertension) (Acute) BPH w urinary obs/LUTS (Acute) History of colon polyps (Acute) Elevated transaminase level (Acute) Traumatic brain injury (Acute) PTSD (post-traumatic stress disorder) (Acute) Pain in left knee (Acute) Pain in right knee (Acute) Arthritis, lumbar spine (Acute) Arthritis of left shoulder region (Acute) Arthritis of right shoulder region (Acute) Arthropathy of cervical spine (Acute) Past Medical History Medical History Depressive disorder Alcohol abuse Alcoholism Moderate persistent asthma Clubbing of nails Lumbar degenerative disc disease Right knee pain Primary osteoarthritis, right shoulder Right shoulder pain Cervicalgia Knee osteoarthritis 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 Daughter Alive and well Daughter Alive and well Brother Alive and well Family history of problems with anesthesia: No Surgical History Surgical History History of colonoscopy History of inguinal hernia repair History of Problems with Anesthesia: No Social History Social History Household Members: None [facility] Are you a primary director of critical care to a significant other at home: No Do you presently have visiting nurse or other home services: No Alcohol intake: current Alcohol intake frequency: does not drink Alcohol type: hard liquor Comment: Pt refusing all alarms Patient Tobacco Use Status: Former Tobacco user Tobacco use type: Cigarette Cigarette Packs Per Day: 1 Cigarettes Per Day: 20.0 Years Smoked: quit cigaretters 8 years ago, once/month cigars & chewing tobacco e-Cigarette/Vaping Use: Currently Using Second Hand Smoke Exposure: No Use of substances other than those prescribed or required for medical reasons: Yes Substance Use Type: Marijuana Substance Use Frequency: Daily Have you been hit, kicked, punched, or otherwise hurt by someone within the past year? 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 Cognitive needs: No Hearing needs: No Vision needs: No Meds Allergies Allergy/AdvReac Type Severity Reaction Status Date / Time No Known Allergies Allergy Verified 11/20/24 10:52 [No Known Allergies*] Home Medications ?Medication ?Instructions ?Recorded ?Confirmed ?Last Taken ?Type quetiapine 50 mg tablet 50 mg PO BEDTIME PRN Sleep 10/19/23 09/26/24 Unknown History albuterol sulfate 90 mcg/actuation 2 puff inhalation Q4H PRN 09/26/24 09/26/24 Unknown History aerosol inhaler (Ventolin HFA) shortness of breath or wheezing multivitamin 1 tab PO DAILY 09/26/24 09/26/24 1 Week Ago History ~09/19/24 nicotine (polacrilex) 2 mg buccal 2 mg buccal Q4H PRN Nicotine 09/26/24 09/26/24 Unknown History lozenge Cravings nicotine 14 mg/24 hr daily 1 patch transdermal DAILY 09/26/24 09/26/24 1 Week Ago History transdermal patch ~09/19/24 omega-3 acid ethyl esters 1 gram 1 cap PO DAILY 09/26/24 09/26/24 1 Week Ago History capsule ~09/19/24 omeprazole 40 mg capsule,delayed 40 mg PO DAILY@0630 09/26/24 11/20/24 11/20/24 History release tamsulosin 0.4 mg capsule 0.4 mg PO BEDTIME 09/26/24 09/26/24 1 Week Ago History ~09/19/24 tiotropium bromide 2.5 2 puff inhalation DAILY 09/26/24 09/26/24 1 Week Ago History mcg/actuation mist for inhalation ~09/19/24 (Spiriva Respimat) Exam Height,Weight and Vital Signs: Height 6 ft 1 in Weight 104.326 kg Pertinent Lab Results Pertinent Lab Results: Laboratory Tests 10/05/24 13:17 WBC 9.6 Hgb 15.0 Hct 43.2 D Plt Count 441 H D Sodium 135 Potassium 3.2 L Chloride 96 Carbon Dioxide 28 BUN 11 Creatinine 1.02 Narrative Narrative: ECHO 2023 Conclusions: - The left ventricular systolic function is normal. The calculated ejection fraction is 55% by biplane method. - No obvious valvular pathology seen on this study. - There is mild dilatation of the ascending aorta measuring 4.20 cm. 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 Daughter Alive and well Daughter Alive and well Brother Alive and well Surgical History Surgical History History of colonoscopy History of inguinal hernia repair Social History Social History Household Members: None Housing: Condominium Are you a primary director of critical care to a significant other at home: No Do you presently have visiting nurse or other home services: No Alcohol intake: current Alcohol intake frequency: does not drink Alcohol type: hard liquor Comment: Pt refusing all alarms Patient Tobacco Use Status: Former Tobacco user Tobacco use type: Cigarette Cigarette Packs Per Day: 1 Cigarettes Per Day: 20.0 Years Smoked: quit cigaretters 8 years ago, once/month cigars & chewing tobacco e-Cigarette/Vaping Use: Currently Using Second Hand Smoke Exposure: No Use of substances other than those prescribed or required for medical reasons: Yes Substance Use Type: Marijuana Substance Use Frequency: Daily Have you been hit, kicked, punched, or otherwise hurt by someone within the past year? 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 Cognitive needs: No Hearing needs: No Vision needs: No Meds Allergies Allergy/AdvReac Type Severity Reaction Status Date / Time No Known Allergies Allergy Verified 11/20/24 10:52 [No Known Allergies*] Home Medications ?Medication ?Instructions ?Recorded ?Confirmed ?Last Taken ?Type quetiapine 50 mg tablet 50 mg PO BEDTIME PRN Sleep 10/19/23 09/26/24 Unknown Hi story albuterol sulfate 90 mcg/actuation 2 puff inhalation Q4H PRN 09/26/24 09/26/24 Unknown History aerosol inhaler (Ventolin HFA) shortness of breath or wheezing multivitamin 1 tab PO DAILY 09/26/24 09/26/24 1 Week Ago History ~09/19/24 nicotine (polacrilex) 2 mg buccal 2 mg buccal Q4H PRN Nicotine 09/26/24 09/26/24 Unknown History lozenge Cravings nicotine 14 mg/24 hr daily 1 patch transdermal DAILY 09/26/24 09/26/24 1 Week Ago History transdermal patch ~09/19/24 omega-3 acid ethyl esters 1 gram 1 cap PO DAILY 09/26/24 09/26/24 1 Week Ago History capsule ~09/19/24 omeprazole 40 mg capsule,delayed 40 mg PO DAILY@0630 09/26/24 11/20/24 11/20/24 History release tamsulosin 0.4 mg capsule 0.4 mg PO BEDTIME 09/26/24 09/26/24 1 Week Ago History ~09/19/24 tiotropium bromide 2.5 2 puff inhalation DAILY 09/26/24 09/26/24 1 Week Ago History mcg/actuation mist for inhalation ~09/19/24 (Spiriva Respimat) Exam Airway Mallampati Class: II TM Dist: >3cm Neck ROM: Full Denture: Upper Heart: rrrr Lungs: cta Assessment and Plan Assessment Anesthesia Assessment: Anesthesia Plan Discussed Final Anesthetic Review NPO: Yes ASA Class: III Final Preanesthetic Review: No Changes in Pt Med Stat, Meds/Allgs Chart Reviewed and Consent Obtained/Reviewed Patient Risk: Intermediate Procedure Risk: Intermediate Anesthetic Plan Anesthetic Plan: MAC: Disposition: Standard PACU
--- OUTSIDE RECORDS SUMMARY | 2024-11-20 10:01 | XMS_ITS | Continuity of Care Document ---
Author Name [facility] Organization [facility] Care Team Providers Care Manager [place] Name Role Phone [facility] Unavailable Unavailable Problems Combined list of problems from Department of Defense and Veterans Affairs facilities. It does not include entries that were removed or entered in error. Problem Status Onset Date Problem Type Date of Resolution Comments Source Chronic pain Active 01/23/20 24 Diagnosis [id number] h [facility] Certification status Active 01/23/20 24 Diagnosis [id number] h [facility] Certification status Active 11/27/19 24 Diagnosis [id number] h [facility] Alcohol dependence, uncomplicated Active Condition [facility] Chronic PTSD Active Condition [facility] Alcohol dependence Active Condition Jan 11, 2023 Entered By: ROBERT MORA Comment: Alcohol Use Disorder, Severe [facility] Allergic Rhinitis (SCT [id number]) Active Condition [facility] Asthma (SCT [id number]) Active Condition Aug 20, 2024 Entered By: Lopez TYLER Comment[facility]/ severe [facility] Benign Prostatic Hypertrophy with Outflow Obstruction (SCT [id number]) Active Condition [facility] Chronic pain Active Condition [facility] Colonic polyp Active Condition Aug Entered By: Lopez TYLER Comment: vet C scope w/polyps approx 2020/ needs repeat C scope per Onur/ jose m [facility] Concussion with loss of consciousness Active Condition Nov 13, 2023 Entered By: TOMY BARRERA AM Comment: 2003 [place] [facility] COPD - Chronic Obstructive Pulmonary Disease (SCT [id number]) Active Condition Aug 20, 2024 Entered By: Lopez TYLER Comment: [facility] provider in [place] reports vet has COPD and asthma- on both spiriva and advair [facility] Erectile Dysfunction (SCT [id number]) Active Condition [facility] Exposure to potentially hazardous substance Active Condition [facility] GERD - Gastro-Esophageal Reflux Disease (SCT [id number]) Active Condition [facility] Headache (SCT [id number]) Active Condition [facility] HTN - Hypertension (SCT 20453343) Active Condition [facility] Low testosterone Active Condition [facility] Neck Pain (SCT 99440760) Active Condition [facility] Pain of Right Knee (SCT [id number]) Active Condition [facility] Posttraumatic stress disorder Active Condition May 09, 2023 Entered By: JENNI GIRON Comment: Evaluated via CAPS 6.27.23 [facility] SAS - Sleep apnoea syndrome Active Condition [facility] Shoulder Pain (SCT 96819649) Active Condition [facility] Tobacco abuse Active Condition Jan Entered By: ROBERT MORA Comment: Tobacco (Cigarette) Use Disorder, MildNov 13, 2023 Entered By: TOMY BARRERA AM Comment: Vaping [facility] Diagnosis: ICD-10-CM M54.2 Cervicalgia Active Diagnosis [facility] Diagnosis: ICD-10-CM G89.21 Chronic pain due to trauma Active Diagnosis [facility] Diagnosis: ICD-10-CM F10.20 Alcohol dependence, uncomplicated Active Diagnosis [facility] Diagnosis: ICD-10-CM J44.9 Chronic obstructive pulmonary disease, unspecified Active Diagnosis [facility] Diagnosis: ICD-10-CM M25.561 Pain in right knee Active Diagnosis [facility] Diagnosis: ICD-10-CM Z71.89 Other specified counseling Active Diagnosis [facility] Diagnosis: ICD-10-CM M25.519 Pain in unspecified shoulder Active Diagnosis [facility] Diagnosis: ICD-10-CM F43.10 Post-traumatic stress disorder, unspecified Active Diagnosis [facility] Medications Combined list of outpatient medications from Department of Defense and [facility] facilities.Medications provided include 1) outpatient medications from the last 15 months, and 2) patient-reported medications. Medication Details Route Status Patient Instructions Prescription Expires Prescription Number Last Dispense Date Ordering Provider Order Date Order Qty Source ALBUTEROL SO4 3MG/IPRATRO PIUM BR 0.5MG/3ML INHL,3ML INHALE 1 AMPULE IN NEBULIZE R FOUR TIMES A DAY FOR BRONCHOS PASM RESPIR ATORY (INHAL ATION) ACTIVE 10/10/2025 [id number] [facility] 2023 240 [facility] ALBUTEROL SULFATE HFA (albuterol sulfate), 90 MCG, HFA AER AD, INHALATION, [place]EVA [place], 8.5 g CANISTER Active [id number] 4 2023 8.5 Pharmac y Data Transac tion Service Facilit y ALBUTEROL SULFATE HFA (albuterol sulfate), 90 MCG, HFA AER AD, INHALATION, [place]A [place], 8.5 g CANISTER Active [id number] 4 2023 8.5 Pharmac y Data Transac tion Service Facilit y ALBUTEROL SULFATE HFA (albuterol sulfate), 90 MCG, HFA AER AD, INHALATION, [place]EVA [place], 8.5 g CANISTER Active [id number] 3 2022 8.5 Pharmac y Data Transac tion Service Facilit y ALBUTEROL SULFATE HFA (albuterol sulfate), 90 MCG, HFA AER AD, INHALATION, [place]A [place], 8.5 g CANISTER Active [id number] 4 2023 8.5 Pharmac y Data Transac tion Service Facilit y ALBUTEROL SULFATE HFA (albuterol sulfate), 90 MCG, HFA AER AD, INHALATION, [place]EVA [place], 8.5 g CANISTER Cancele d [id number] : 2023 0 Pharmac y Data Transac tion Service Facilit y AMLODIPINE BESYLATE (amlodipine besylate), 5 MG, TABLET, ORAL, [employer] [facility], 1000 ea. BOTTLE Active [id number] 2023 90 Pharmac y Data Transac tion Service Facilit y AMLODIPINE BESYLATE (amlodipine besylate), 5 MG, TABLET, ORAL, [employer] PHARMAC, 1000 ea. BOTTLE Active [id number] 4 2023 90 Pharmac y Data Transac tion Service Facilit y AMLODIPINE BESYLATE 5MG TAB TAKE ONE TABLET BY MOUTH ONCE DAILY FOR BLOOD PRESSURE /HEART, DO NOT TAKE WITH GRAPEFRU IT JUICE ORAL ACTIVE 08/21/2025 [id number] 4 HAYDE MADRIGAL 2023 90 [facility] [place] 10MCG/HR PATCH APPLY 1 PATCH TO SKIN EVERY 5 DAYS FOR SEVERE CHRONIC PAIN (REMOVE PATCH BEFORE APPLYING A NEW PATCH) TRANSD ERMAL DISCONT INUED BY PROVIDE R 04/11/2025 [id number] 4 [facility] 2023 6 [facility] [place] ne 2mg, Tablet, Sublingual DISSOLVE ONE TABLET UNDER THE TONGUE EVERY 8 HOURS FOR CHRONIC PAIN 08/20/2024 [id number] 4 [facility] 2023 90 [facility] [place] ne 2mg, Tablet, Sublingual DISSOLVE ONE TABLET UNDER THE TONGUE EVERY 8 HOURS FOR CHRONIC PAIN Discont inued 06/19/2024 [id number] 4 [facility] 2023 90 [facility] [place] ne 2mg, Tablet, Sublingual DISSOLVE ONE TABLET UNDER THE TONGUE EVERY 8 HOURS FOR CHRONIC PAIN 06/19/2024 [id number] 4 [facility] 2023 90 [facility] [place] ne 2mg, Tablet, Sublingual DISSOLVE ONE TABLET UNDER THE TONGUE EVERY 12 HOURS Discont inued 05/24/2024 [id number] [facility] 2023 60 [facility] [place] ne 2mg, Tablet, Sublingual DISSOLVE ONE TABLET UNDER THE TONGUE EVERY 12 HOURS Discont inued 03/14/2024 [id number] [facility] 2023 60 [facility] [place] NE HCL 2MG TAB,SUBLING UAL DISSOLVE ONE TABLET UNDER THE TONGUE EVERY 8 HOURS FOR CHRONIC PAIN SUBLIN GUAL DISCONT INUED 06/19/2024 [id number] [facility] 2023 90 [facility] [place] NE HCL 2MG TAB,SUBLING UAL DISSOLVE ONE TABLET UNDER THE TONGUE EVERY 12 HOURS SUBLIN GUAL DISCONT INUED BY PROVIDE R 05/24/2024 [id number] [facility] B 2023 60 [facility] [place] HCL 2MG TAB,SUBLING UAL DISSOLVE ONE TABLET UNDER THE TONGUE EVERY 12 HOURS SUBLIN GUAL DISCONT INUED 03/14/2024 [id number] 3 [facility] [facility] 2022 60 [facility] [place] NE HCL 2MG TAB,SUBLING UAL DISSOLVE ONE TABLET UNDER THE TONGUE EVERY 8 HOURS FOR CHRONIC PAIN SUBLIN GUAL 08/20/2024 [id number] 4 [facility] B 2023 90 [facility] busPIRone (U/D) 5 MG ORAL TAB TAKE ONE TABLET BY MOUTH THREE TIMES A DAY FOR ANXIETY Active 04/11/2025 [id number] 4 [facility] 2023 90 [facility] BUSPIRONE HCL 10MG TAB TAKE ONE TABLET BY MOUTH THREE TIMES A DAY FOR ANXIETY ORAL 08/23/2024 [id number] 4 [facility] 2023 270 [facility] BUSPIRONE HCL 5MG TAB TAKE ONE TABLET BY MOUTH THREE TIMES A DAY FOR ANXIETY ORAL DISCONT INUED BY PROVIDE R 04/11/2025 [id number] 4 [facility] 2023 90 [facility] CEPHALEXIN (CEPHALEXIN MONOHYDRATE ), 500MG, CAPSULE, ORAL, [place]EVA [place], 500 ea. BOTTLE Active [id number] 2023 28 Pharmac y Data Transac tion Service Facilit y CETIRIZINE (U/D) 10 MG ORAL TAB TAKE ONE TABLET BY MOUTH ONCE DAILY FOR ALLERGIE S 11/13/2024 [id number] 4 KD BARRERA 2023 90 [facility] CETIRIZINE HCL 10MG TAB TAKE ONE TABLET BY MOUTH ONCE DAILY FOR ALLERGIE S ORAL ACTIVE 08/21/2025 [id number] 4 HAYDE MADRIGAL 2023 90 [facility] CETIRIZINE HCL 10MG TAB TAKE ONE TABLET BY MOUTH ONCE DAILY FOR ALLERGIE S ORAL DISCONT INUED 11/13/2024 [id number] 4 [facility]ER[facility] 20[facility] CHLORTHALID ONE (chlorthali done), 25 MG, TABLET, ORAL, [employer] PHARMA L, 100 ea. BOTTLE Cancele d [id number] : 2023 0 Pharmac y Data Transac tion Service Facilit y CHLORTHALID ONE 25MG TAB TAKE ONE TABLET BY MOUTH ONCE DAILY FOR HIGH BLOOD PRESSURE TO REMOVE FLUID/CO NTROL BLOOD PRESSURE ORAL DISCONT INUED BY PROVIDE R 08/21/2025 [id number] HAYDE MADRIGAL 2023 90 [facility] CHLORTHALID ONE 25MG TAB TAKE ONE TABLET BY MOUTH ONCE DAILY TO REMOVE FLUID/CO NTROL BLOOD PRESSURE ORAL DISCONT INUED 06/30/2025 [id number] 4 HAYDE MADRIGAL 2023 90 [facility] diazePAM (U/D) 5 MG ORAL TAB TAKE ONE TABLET BY MOUTH TWICE DAILY NEEDED DIRECTED FOR ANXIETY/ NERVES - MAY USE UP TO 2 TABLETS PER DAY UP TO 3 TIMES PER WEEK 10/11/2024 [id number] 4 [facility] 2023 24 [facility] diazePAM (U/D) 5 MG ORAL TAB TAKE ONE TABLET BY MOUTH TWICE DAILY NEEDED DIRECTED FOR ANXIETY/ NERVES - MAY USE UP TO 2 TABLETS PER DAY UP TO 3 TIMES PER WEEK Discont inued 05/01/2024 [id number] 4 KD BAZZI 2023 24 [facility] diazePAM (U/D) 5 MG ORAL TAB TAKE ONE TABLET BY MOUTH TWICE DAILY NEEDED DIRECTED FOR ANXIETY/ NERVES - MAY USE UP TO 2 TABLETS PER DAY UP TO 3 TIMES PER WEEK 03/19/2024 [id number] 4 [facility] [place] 2023 24 [facility] diazePAM (U/D) 5 MG ORAL TAB TAKE ONE TABLET BY MOUTH THREE TIMES DAILY NEEDED FOR ANXIETY/ NERVES 11/23/2023 [id number] 3 [facility] [place] 2023 15 [facility] DIAZEPAM 5MG TAB TAKE ONE TABLET BY MOUTH TWICE DAILY NEEDED DIRECTED FOR ANXIETY/ NERVES - MAY USE UP TO 2 TABLETS PER DAY UP TO 3 TIMES PER WEEK ORAL DISCONT INUED BY PROVIDE R 10/11/2024 [id number] 4 [facility] 2023 24 [facility] DIAZEPAM 5MG TAB TAKE ONE TABLET BY MOUTH TWICE DAILY NEEDED DIRECTED FOR ANXIETY/ NERVES - MAY USE UP TO 2 TABLETS PER DAY UP TO 3 TIMES PER WEEK ORAL DISCONT INUED 05/01/2024 [id number] 4 [facility] 2023 24 [facility] DIAZEPAM 5MG TAB TAKE ONE TABLET BY MOUTH TWICE DAILY NEEDED DIRECTED FOR ANXIETY/ NERVES - MAY USE UP TO 2 TABLETS PER DAY UP TO 3 TIMES PER WEEK ORAL 03/19/2024 [id number] 4 [facility] [facility] 2023 24 [facility] DIAZEPAM 5MG TAB TAKE ONE TABLET BY MOUTH THREE TIMES DAILY NEEDED FOR ANXIETY/ NERVES ORAL 11/23/2023 [id number] 3 [facility] 2022 15 [facility] FLUTICASONE 250MCG/SALM ETEROL 50MCG INHL,ORAL,D ISKUS,60 INHALE 1 PUFF BY MOUTH TWICE DAILY - RINSE MOUTH AFTER USE RESPIR ATORY (INHAL ATION) ACTIVE 08/08/2025 [id number] 4 HAYDE MADRIGAL 2023 3 [facility] FLUTICASONE -SALMETEROL (fluticason e propionate/ salmeterol xinafoate), 250-50 MCG, BLST W/DEV, INHALATION, [place]/H IKMA, 60 ea. BLIST PACK Cancele d [id number] : 2023 0 Pharmac y Data Transac tion Service Facilit y FLUTICASONE -SALMETEROL (fluticason e propionate/ salmeterol xinafoate), 250-50 MCG, BLST W/DEV, INHALATION, [place]/H IKMA, 60 ea. BLIST PACK Cancele d [id number] : 2023 0 Pharmac y Data Transac tion Service Facilit y FUROSEMIDE (furosemide ), 20 MG, TABLET, ORAL, RISING PHARM, 1000 ea. BOTTLE Active [id number] 2023 14 Pharmac y Data Transac tion Service Facilit y FUROSEMIDE (furosemide ), 20 MG, TABLET, ORAL, RISING PHARM, 1000 ea. BOTTLE Active [id number] 2023 7 Pharmac y Data Transac tion Service Facilit y GABAPENTIN 300MG CAP TAKE ONE CAPSULE BY MOUTH THREE TIMES A DAY FOR PAIN ORAL ACTIVE 01/16/2025 [id number] [facility] [facility] 2024 180 [facility] IRX: Sildenafil 100 mg/Placebo Tablet Oral TAKE ONE TABLET BY MOUTH ONCE DAILY TAKE 1 HOUR PRIOR TO SEXUAL ACTIVITY 11/13/2024 [id number] 4 KD BARRERA 2023 6 [facility] MIRTAZAPINE 30MG TAB TAKE ONE TABLET BY MOUTH AT BEDTIME FOR DEPRESSI ON/MOOD ORAL ACTIVE 11/18/2025 [id number] 5 [facility] [facility] 2024 90 [facility] MIRTAZAPINE 30MG TAB TAKE ONE-HALF TABLET BY MOUTH AT BEDTIME FOR MAJOR DEPRESSI VE DISORDER FOR DEPRESSI ON/MOOD ORAL DISCONT INUED 01/07/2025 [id number] 4 [facility] [facility] 2023 45 [facility] NICOTINE 14MG/24HRS PATCH APPLY 1 PATCH TO SKIN ONCE DAILY FOR SMOKING CESSATIO N (REMOVE OLD PATCH BEFORE APPLYING NEW PATCH) TRANSD ERMAL ACTIVE 08/21/2025 [id number] 4 HAYDE MADRIGAL 2023 28 [facility] NICOTINE POLACRILEX 2MG MINI LOZENGE DISSOLVE 1 LOZENGE BY MOUTH SIX TIMES A DAY NEEDED FOR NICOTINE REPLACEM ENT ORAL ACTIVE 08/21/2025 [id number] 4 HAYDE MADRIGAL 2023 81 [facility] NYSTATIN (nystatin), 633946/ML, ORAL SUSP, ORAL, LEADING PHARMA, 60 ml BOTTLE Cancele d [id number] : 2023 0 Pharmac y Data Transac tion Service Facilit y NYSTATIN (nystatin), 849267/ML, ORAL SUSP, ORAL, LEADING PHARMA, 60 ml BOTTLE Active [id number] 4 2023 120 Pharmac y Data Transac tion Service Facilit y OMEGA-3 ACID ETHYL ESTERS (omega-3 acid ethyl esters), 1 G, CAPSULE, ORAL, Auto[employer]S PHARMA, 120 ea. BOTTLE Cancele d [id number] : 2023 0 Pharmac y Data Transac tion Service Facilit y OMEPRAZOLE (OMEPRAZOLE ), 40 MG, CAPSULE DR, ORAL, ZYDUS PHARMACEU, 1000 ea. BOTTLE Cancele d [id number] : 2023 0 Pharmac y Data Transac tion Service Facilit y OMEPRAZOLE (OMEPRAZOLE ), 40 MG, CAPSULE DR, ORAL, ZYDUS PHARMACEU, 1000 ea. BOTTLE Active [id number] 2022 90 Pharmac y Data Transac tion Service Facilit y OMEPRAZOLE (OMEPRAZOLE ), 40 MG, CAPSULE DR, ORAL, ZYDUS PHARMACEU, 1000 ea. BOTTLE Active [id number] 4 2023 90 Pharmac y Data Transac tion Service Facilit y OMEPRAZOLE 20MG CAP,EC TAKE TWO CAPSULES BY MOUTH EVERY MORNING 30 MINUTES BEFORE BREAKFAS T FOR GASTROES OPHAGEAL REFLUX DISEASE ORAL ACTIVE 08/21/2025 [id number] 4 Jose'HAYDE GEORGES 2023 180 [facility] OMEPRAZOLE 20MG CAP,EC TAKE TWO CAPSULES BY MOUTH EVERY MORNING 30 MINUTES BEFORE BREAKFAS T FOR GASTROES OPHAGEAL REFLUX DISEASE ORAL DISCONT INUED 06/30/2025 [id number] 4 HAY[facility] MADRIGAL 2023 180 [facility] ONDANSETRON (U/D) 4 MG ORAL TAB TAKE ONE TABLET BY MOUTH FOUR TIMES DAILY NEEDED FOR NAUSEA AND VOMITING 11/23/2023 [id number] 3 [facility] 2023 20 [facility] ONDANSETRON HCL 4MG TAB TAKE ONE TABLET BY MOUTH FOUR TIMES DAILY NEEDED FOR NAUSEA AND VOMITING ORAL 11/23/2023 [id number] 3 [facility] 2022 20 [facility] Oxycodone (Oxy IR Eq.) Tablet 5 mg Oral TAKE ONE TABLET BY MOUTH TWICE DAILY FOR PAIN NEXT FILL 05/08 05/10/2024 [id number] 4 [facility] 2023 60 [facility] Oxycodone (Oxy IR Eq.) Tablet 5 mg Oral TAKE ONE TABLET BY MOUTH FOUR TIMES A DAY FOR PAIN (NEXT FILL 03/17/24) 03/19/2024 [id number] 4 [facility] 2023 112 [facility] Oxycodone (Oxy IR Eq.) Tablet 5 mg Oral TAKE ONE TABLET BY MOUTH FOUR TIMES A DAY NEXT FILL 02/13 02/15/2024 [id number] 4 [facility] 2023 112 [facility] Oxycodone (Oxy IR Eq.) Tablet 5 mg Oral TAKE ONE TABLET BY MOUTH FOUR TIMES A DAY NEXT FILL 12/20 12/22/2023 [id number] 4 [facility] 2023 112 [facility] Oxycodone (Oxy IR Eq.) Tablet 5 mg Oral TAKE ONE TABLET BY MOUTH FOUR TIMES A DAY NEXT FILL 11/21 Discont inued 11/22/2023 [id number] 3 [facility] 2023 112 [facility] Oxycodone (Oxy IR Eq.) Tablet 5 mg Oral TAKE ONE TABLET BY MOUTH FOUR TIMES A DAY FOR PAIN (NEXT FILL 10/11/23) 10/12/2023 [id number] 3 [facility] 2022 120 [facility] Oxycodone (Oxy IR Eq.) Tablet 5 mg Oral TAKE ONE TABLET BY MOUTH TWICE DAILY NEEDED NEXT FILL 09/24 Discont inued 09/25/2023 [id number] 3 [facility] 2022 32 [facility] OXYCODONE HCL 5MG TAB TAKE ONE TABLET BY MOUTH FOUR TIMES A DAY NEXT FILL 11/21 ORAL DISCONT INUED 11/22/2023 [id number] 3 [facility] [facility] 2022 112 [facility] OXYCODONE HCL 5MG TAB TAKE ONE TABLET BY MOUTH TWICE DAILY NEEDED NEXT FILL 09/24 ORAL DISCONT INUED 09/25/2023 [id number] 3 [facility] 2022 32 [facility] OXYCODONE HCL 5MG TAB TAKE ONE TABLET BY MOUTH TWICE DAILY FOR PAIN NEXT FILL 05/08 ORAL 05/10/2024 [id number] 4 [facility] 2023 60 [facility] OXYCODONE HCL 5MG TAB TAKE ONE TABLET BY MOUTH FOUR TIMES A DAY FOR PAIN (NEXT FILL 03/17/24) ORAL 03/19/2024 [id number] 4 [facility] 2023 112 [facility] OXYCODONE HCL 5MG TAB TAKE ONE TABLET BY MOUTH FOUR TIMES A DAY NEXT FILL 02/13 ORAL 02/15/2024 [id number] 4 [facility] 2023 112 [facility] OXYCODONE HCL 5MG TAB TAKE ONE TABLET BY MOUTH FOUR TIMES A DAY NEXT FILL 12/20 ORAL 12/22/2023 [id number] 4 [facility] [facility] 2023 112 [facility] OXYCODONE HCL 5MG TAB TAKE ONE TABLET BY MOUTH FOUR TIMES A DAY FOR PAIN (NEXT FILL 10/11/23) ORAL 10/12/2023 [id number] 3 [facility] 2022 120 [facility] PAROXETINE HCL (PAROXETINE HCL), 40 MG, TABLET, ORAL, [employer] 1000 ea. BOTTLE Active [id number] 2023 90 Pharmac y Data Transac tion Service Facilit y PARoxetine HCl (U/D) 20 MG ORAL TAB TAKE ONE TABLET BY MOUTH ONCE DAILY Discont inued 08/26/2024 [id number] 3 MARIANELA COY 2023 90 [facility] PAROXETINE HCL 20MG TAB TAKE ONE TABLET BY MOUTH ONCE DAILY ORAL DISCONT INUED (EDIT) 08/26/2024 [id number] 3 MARIANELA COY 2022 90 [facility] PARoxetine HCl 40 MG ORAL TAB TAKE ONE TABLET BY MOUTH ONCE DAILY Active 04/11/2025 [id number] 4 [facility] [place] [facility] 2023 90 [facility] PARoxetine HCl 40 MG ORAL TAB TAKE ONE TABLET BY MOUTH ONCE DAILY Discont inued 11/13/2024 [id number] 4 MARIANELA COY 2023 90 [facility] PAROXETINE HCL 40MG TAB TAKE ONE-HALF TABLET BY MOUTH ONCE DAILY FOR DEPRESSI ON ORAL ACTIVE 11/18/2025 [id number] 5 [facility] 2024 45 [facility] PAROXETINE HCL 40MG TAB TAKE ONE TABLET BY MOUTH ONCE DAILY ORAL DISCONT INUED BY PROVIDE R 04/11/2025 [id number] 4 [facility] 2023 90 [facility] PAROXETINE HCL 40MG TAB TAKE ONE TABLET BY MOUTH ONCE DAILY ORAL DISCONT INUED 11/13/2024 [id number] 4 MARIANELA COY 2023 90 [facility] POTASSIUM CHLORIDE (potassium chloride), 20 MEQ, TABLET ER, ORAL, ADVAGEN PHARMA, 100 ea. BOTTLE Cancele d [id number] : 2023 0 Pharmac y Data Transac tion Service Facilit y POTASSIUM CHLORIDE (potassium chloride), 20 MEQ, TABLET ER, ORAL, ADVAGEN PHARMA, 100 ea. BOTTLE Active [id number] 2023 30 Pharmac y Data Transac tion Service Facilit y POTASSIUM CHLORIDE (potassium chloride), 20 MEQ, TABLET ER, ORAL, ADVAGEN PHARMA, 100 ea. BOTTLE Active [id number] 2023 30 Pharmac y Data Transac tion Service Facilit y POTASSIUM CHLORIDE (potassium chloride), 20 MEQ, TABLET ER, ORAL, TWI PHARMACEUTI , 100 ea. BOTTLE Active [id number] 2023 30 Pharmac y Data Transac tion Service Facilit y POTASSIUM CHLORIDE 10MEQ TAB,SA TAKE ONE TABLET BY MOUTH ONCE DAILY FOR LOW POTASSIU M ORAL ACTIVE 06/30/2025 [id number] 4 HAYDE MADRIGAL 2023 90 [facility] PREDNISONE 20MG TAB TAKE THREE TABLETS BY MOUTH ONCE DAILY FOR ASTHMA ORAL DISCONT INUED BY PROVIDE R 08/21/2025 [id number] 4 HAYDE MADRIGAL 2023 18 [facility] Quetiapine (Seroquel Starter Pack) Tablet 100 mg Oral TAKE ONE TABLET BY MOUTH AT BEDTIME FOR SLEEP Discont inued 12/18/2024 [id number] 4 [facility] (U/D) 50 MG ORAL TAB TAKE ONE TABLET BY MOUTH AT BEDTIME NEEDED FOR SLEEP Active 01/17/2025 [id number] 4 [facility] [place] [facility] 2023 60 [facility] QUEtiapine (U/D) 50 MG ORAL TAB TAKE ONE TABLET BY MOUTH AT BEDTIME NEEDED FOR SLEEP Active 01/17/2025 [id number] 4 [facility] [place] [facility] 2023 60 [facility] QUEtiapine (U/D) 50 MG ORAL TAB TAKE ONE TABLET BY MOUTH AT BEDTIME NEEDED FOR SLEEP 10/24/2024 [id number] 4 [facility] [place] B 2023 60 [facility] QUETIAPINE FUMARATE 100MG TAB TAKE ONE TABLET BY MOUTH AT BEDTIME FOR SLEEP ORAL DISCONT INUED BY PROVIDE R 12/18/2024 [id number] [facility] B 2023 60 [facility] QUETIAPINE FUMARATE 50MG TAB TAKE ONE TABLET BY MOUTH AT BEDTIME NEEDED FOR SLEEP ORAL ACTIVE 11/18/2025 [id number] [facility] B 2024 60 [facility] QUETIAPINE FUMARATE 50MG TAB TAKE ONE TABLET BY MOUTH AT BEDTIME NEEDED FOR SLEEP ORAL DISCONT INUED 01/17/2025 [id number] [facility] B 2023 60 [facility] QUETIAPINE FUMARATE 50MG TAB TAKE ONE TABLET BY MOUTH AT BEDTIME NEEDED FOR SLEEP ORAL DISCONT INUED 10/24/2024 [id number] [facility] B 2022 60 [facility] SILDENAFIL CITRATE 100MG TAB TAKE ONE TABLET BY MOUTH ONCE DAILY TAKE 1 HOUR PRIOR TO SEXUAL ACTIVITY ORAL 11/13/2024 [id number] [facility] 2023 6 [facility] SPIRIVA RESPIMAT (tiotropium bromide), 1.25 MCG, MIST INHAL, INHALATION, BOEHRINGER ING., 4 g AER W/ADAP Active [id number] 2023 12 [facility] y [facility] y SPIRIVA RESPIMAT (tiotropium bromide), 1.25 MCG, MIST INHAL, INHALATION, BOEHRINGER ING., 4 g AER W/ADAP Cancele d [id number] : 2023 0 Pharmac y Data Transac tion Service Facilit y SPIRIVA RESPIMAT (tiotropium bromide), 1.25 MCG, MIST INHAL, INHALATION, BOEHRINGER ING., 4 g AER W/ADAP Active [id number] 4 2023 12 Pharmac y Data Transac tion Service Facilit y SPIRIVA RESPIMAT (tiotropium bromide), 1.25 MCG, MIST INHAL, INHALATION, BOEHRINGER ING., 4 g AER W/ADAP Cancele d [id number] 4 [id number] : 2023 0 Pharmac y Data Transac tion Service Facilit y SPIRIVA RESPIMAT (tiotropium bromide), 1.25 MCG, MIST INHAL, INHALATION, BOEHRINGER ING., 4 g AER W/ADAP Active [id number] 4 2023 4 Pharmac y Data Transac tion Service Facilit y SPIRIVA RESPIMAT (tiotropium bromide), 1.25 MCG, MIST INHAL, INHALATION, BOEHRINGER ING., 4 g AER W/ADAP Active [id number] 2023 4 Pharmac y Data Transac tion Service Facilit y SPIRIVA RESPIMAT (tiotropium bromide), 1.25 MCG, MIST INHAL, INHALATION, BOEHRINGER ING., 4 g AER W/ADAP Cancele d [id number] : 2022 0 Pharmac y Data Transac tion Service Facilit y TAMSULOSIN HCL 0.4MG CAP TAKE ONE CAPSULE BY MOUTH AT BEDTIME FOR ENLARGED PROSTATE ORAL ACTIVE 08/21/2025 [id number] HAYDE MADRIGAL 2023 90 [facility] TERAZOSIN HCL (TERAZOSIN HCL), 10MG, CAPSULE, ORAL, CADISTA PHARMAC, 100 ea. BOTTLE Active [id number] 2023 90 Pharmac y Data Transac tion Service Facilit y TERAZOSIN HCL (TERAZOSIN HCL), 5MG, CAPSULE, ORAL, CADISTA PHARMAC, 100 ea. BOTTLE Active [id number] 2023 180 Pharmac y Data Transac tion Service Facilit y TERAZOSIN HCL (TERAZOSIN HCL), 5MG, CAPSULE, ORAL, CADISTA PHARMAC, 100 ea. BOTTLE Active [id number] 2023 10 Pharmac y Data Transac tion Service Facilit y TESTOSTERON E CYPIONATE (testostero ne cypionate), 200 MG/ML, VIAL, INTRAMUSC, [facility]/H IKMA, 1 ml VIAL Cancele d [id number] : 2023 0 Pharmac y Data Transac tion Service Facilit y TESTOSTERON E CYPIONATE (testostero ne cypionate), 200 MG/ML, VIAL, INTRAMUSC, [facility]/H IKMA, 1 ml VIAL Active [id number] 2023 4 Pharmac y Data Transac tion Service Facilit y TESTOSTERON E CYPIONATE PA-F INJ,SOLN INJECT INTRAMUS CULARLY INTRAM USCULA R ACTIVE KD BARRERA [facility] TIOTROPIUM 2.5MCG/ACTU AT INHL,ORAL,6 0D,4GM INHALE 2 PUFFS BY MOUTH ONCE DAILY RESPIR ATORY (INHAL ATION) ACTIVE 08/21/2025 [id number] HAYDE MADRIGAL 2023 3 [facility] WIXELA INHUB (fluticason e propionate/ salmeterol xinafoate), 250-50 MCG, BLST W/DEV, INHALATION, MYLAN, 60 ea. BLIST PACK Active [id number] 2023 180 Pharmac y Data Transac tion Service Facilit y WIXELA INHUB (fluticason e propionate/ salmeterol xinafoate), 250-50 MCG, BLST W/DEV, INHALATION, MYLAN, 60 ea. BLIST PACK Cancele d [id number] : 2023 0 Pharmac y Data Transac tion Service Facilit y Immunizations Combined list of available immunizations from the Department of Defense and Veterans Affairs facilities. Immunization Series Date Given Administered By Site Reaction Lot Number CVX Code Drug Care Aid Status Comments Source INFLUENZA, SPLIT VIRUS, TRIVALENT, PF 2023 HERORAYNA LEFT DELTO ID [id number] complet ed [facility] influenza virus vaccine, inactivated 2022 TONIA walden Arm [id number] 141 [employer], A inDinero complet ed influenza virus vaccine, inactivat ed 04/13/23 Given [id number] AMDS zoster vaccine, inactivated 2021 TRS 187 GlaxoSmithKli ne complet ed zoster vaccine, inactivat ed 04/04/22 Given Ambulat ory Pharmac y zoster recombinant 2021 BOGDASARIAN, () Not Given zoster recombina nt DoD Tdap 2021 BOGDASARIAN, () Not Given Tdap DoD zoster vaccine recombinant 0 2021 Unknown, Provider TRS 187 SmithKline (SKB) complet ed zoster vaccine recombina nt DoD ZOSTER RECOMBINANT 2 2021 187 [facility] hepatitis B vaccine, unspecified formulation 0 2021 45 () Not Given hepatitis B vaccine, unspecifi ed formulati on DoD COVID Vaccine Moderna 2020 [id number] 207 complet ed COVID Vaccine Moderna 10/15/21 Given Ambulat ory Pharmac y SARS-COV-2 (COVID-19) vaccine, mRNA, spike protein, LNP, preservative free, 100 mcg or 50 mcg dose 3 2020 [id number] 207 Moderna [employer] (MOD) complet ed SARS-COV- 2 (COVID-19 ) vaccine, mRNA, spike protein, LNP, preservat chidi free, 100 mcg or 50 mcg dose DoD COVID-19 (MODERNA), MRNA, LNP-S, PF, 100 MCG/0.5ML DOSE OR 50 MCG/0.25ML DOSE 3 2020 207 complet ed SARS-COV- 2 (COVID-19 ) vaccine, mRNA, spike protein, LNP, preservat chidi free, 100 mcg or 50 mcg dose Lot#: [id number] Mfr: MODERNA [employer], [facility] Influenza, inj, MDCK, quadrivalent- pf 2020 171 Seqirus complet ed Influenza , inj, MDCK, quadrival ent-pf 08/01/21 Given Ambulat ory Pharmac y Influenza, injectable, MDCK, preservative free, quadrivalent 2020 BERTHA, () Not Given Influenza , injectabl e, MDCK, preservat chidi free, quadrival ent DoD Influenza, injectable, Madin Angie Canine Kidney, preservative free, quadrivalent 0 2020 171 Seqirus (SEQ) comple t ed Influenza , injectabl e, Madin Angie Canine Kidney, preservat chidi free, quadrival ent DoD COVID Vaccine Moderna 2020 [id number] 207 complet ed COVID Vaccine Moderna 01/06/21 Given Ambulat ory Pharmac y SARS-COV-2 (COVID-19) vaccine, mRNA, spike protein, LNP, preservative free, 100 mcg or 50 mcg dose 2 2020 [id number] 207 Moderna [employer] (MOD) complet ed SARS-COV- 2 (COVID-19 ) vaccine, mRNA, spike protein, LNP, preservat chidi free, 100 mcg or 50 mcg dose DoD COVID-19 (MODERNA), MRNA, LNP-S, PF, 100 MCG/0.5ML DOSE OR 50 MCG/0.25ML DOSE 2 2020 207 complet ed SARS-COV- 2 (COVID-19 ) vaccine, mRNA, spike protein, LNP, preservat chidi free, 100 mcg or 50 mcg dose Lot#: [id number] Mfr: MODERNA [employer], [facility] zoster vaccine, inactivated 2020 TRS 187 GlaxoSmithKli ne complet ed zoster vaccine, inactivat ed 12/15/20 Given Ambulat ory Pharmac y zoster vaccine recombinant 0 2020 Unknown, Provider TRS 187 [facility] ([place]) complet ed zoster vaccine recombina nt DoD zoster recombinant 2020 BOGDASARIAN, () Not Given zoster recombina nt DoD ZOSTER RECOMBINANT 1 2020 187 complet ed [facility] COVID Vaccine Moderna 2020 [id number] 207 complet ed COVID Vaccine Moderna 12/07/20 Given Ambulat ory Pharmac y SARS-COV-2 (COVID-19) vaccine, mRNA, spike protein, LNP, preservative free, 100 mcg or 50 mcg dose 1 [id number] 207 Moderna [employer] (MOD) complet ed SARS-COV- 2 (COVID-19 ) vaccine, mRNA, spike protein, LNP, preservat chidi free, 100 mcg or 50 mcg dose DoD COVID-19 (MODERNA), MRNA, LNP-S, PF, 100 MCG/0.5ML DOSE OR 50 MCG/0.25ML DOSE 1 2020 207 complet ed SARS-COV- 2 (COVID-19 ) vaccine, mRNA, spike protein, LNP, preservat chidi free, 100 mcg or 50 mcg dose Lot#: [id number] Mfr: MODERNA [employer] [facility] zoster vaccine, inactivated 2019 187 GlaxoSmithKli ne complet ed zoster vaccine, inactivat ed 10/11/20 Given Ambulat ory Pharmac y tetanus, diphtheria, acellular pertu is 2019 115 GlaxoSmithKli ne complet ed tetanus, diphtheri a, acellular pertussis 10/11/20 Given Ambulat ory Pharmac y tetanus toxoid, reduced diphtheria toxoid, and acellular pertu is vaccine, adsorbed 0 2019 115 [employer] ([place]) complet ed tetanus toxoid, reduced diphtheri a toxoid, and acellular pertussis vaccine, adsorbed DoD zoster vaccine recombinant 0 2019 187 [employer] ([place]) complet ed zoster vaccine recombina nt DoD zoster recombinant 2019 BOGDASARIAN, () Not Given zoster recombina nt DoD Tdap 2019 BOGDASARIAN, () Not Given Tdap DoD TDAP 2019 115 complet ed [facility] influenza, injectable, quadrivalent- pf 2019 150 complet ed influenza , injectabl e, quadrival ent-pf 08/29/20 Given Ambulat ory Pharmac y Influenza, injectable, quadrivalent, preservative free 0 2019 150 (MVX) complet ed Influenza , injectabl e, quadrival ent, preservat chidi free DoD influenza, injectable, quadrivalent, preservative free 2019 BOGDASARIAN, () Not Given influenza , injectabl e, quadrival ent, preservat chidi free DoD INFLUENZA, INJECTABLE, QUADRIVALENT, PRESERVATIVE FREE 2019 150 complet ed Partner: [facility]. Administe red by: YOON HALEY (NHE=[phone] [id number]). Partner 8 Lot#: [id number] Mfr: SANOFI; Dosage: 0.5 [facility] Influenza, inj, MDCK, quadrivalent- pf 2018 171 complet ed Influenza , inj, MDCK, quadrival ent-pf 09/02/19 Given Ambulat ory Pharmac y Influenza, injectable, Madin Angie Canine Kidney, preservative free, quadrivalent 0 2018 171 (MVX) complet ed Influenza , injectabl e, Madin [place] Canine Kidney, preservat chidi free, quadrival ent DoD INFLUENZA, INJECTABLE, MDCK, PRESERVATIVE FREE, QUADRIVALENT 2018 171 complet ed [facility] Administe red by: YOON HALEY (GCZ=[id number]). Partner 8 Lot#: [id number] Mfr: SEQIRUS; Dosage: 0.5 [facility] influenza, injectable, quadrivalent- pf 2017 [id number] 150 Seqirus complet ed influenza , injectabl e, quadrival ent-pf 10/07/18 Given Ambulat ory Pharmac y Influenza, injectable, quadrivalent, preservative free 14 2017 [id number] 150 Seqirus (SEQ) comple t ed Influenza , injectabl e, quadrival ent, preservat chidi free DoD influenza, seasonal, injectable 2017 [id number] 141 complet ed influenza , seasonal, injectabl e 08/12/18 Given Ambulat ory Pharmac y Influenza, seasonal, injectable 1 2017 [id number] 141 Transcribed (TRS) complet ed Influenza , seasonal, injectabl e DoD influenza, seasonal, injectable 2016 [id number] 141 Seqirus complet ed influenza , seasonal, injectabl e 09/19/17 Given Ambulat ory Pharmac y Influenza, seasonal, injectable 1 2016 [id number] 141 Seqirus (SEQ) comple t ed Influenza , seasonal, injectabl e DoD Influenza, injectable, MDCK, preservative free, quadrivalent 2016 TONY, () Not Given Influenza , injectabl e, MDCK, preservat chidi free, quadrival ent DoD influenza, seasonal, injectable 2015 [id number] 141 GlaxoSmithKli ne complet ed influenza , seasonal, injectabl e 09/04/16 Given Ambulat ory Pharmac y influenza, injectable, quadrivalent- pf 2015 150 GlaxoSmithKli ne complet ed influenza , injectabl e, quadrival ent-pf 09/04/16 Given Ambulat ory Pharmac y Influenza, seasonal, injectable 1 2015 [id number] 141 [facility] ed Influenza , seasonal, injectabl e DoD Influenza, injectable, quadrivalent, preservative free 0 2015 150 SmithKline (SKB) complet ed Influenza , injectabl e, quadrival ent, preservat chidi free DoD influenza, injectable, quadrivalent, preservative free 2015 ANDRY, () Not Given influenza , injectabl e, quadrival ent, preservat chidi free DoD influenza, seasonal, injectable-pf 2014 [id number] 140 GlaxoSmithKli ne complet ed influenza , seasonal, injectabl e-pf 08/15/15 Given Ambulat ory Pharmac y influenza, injectable, quadrivalent- pf 2014 150 GlaxoSmithKli ne complet ed influenza , injectabl e, quadrival ent-pf 08/15/15 Given Ambulat ory Pharmac y Influenza, seasonal, injectable, preservative free 1 2014 [id number] 140 [facility] complet ed Influenza , seasonal, injectabl e, preservat chidi free DoD Influenza, injectable, quadrivalent, preservative free 0 2014 150 [facility] ([place]) complet ed Influenza , injectabl e, quadrival ent, preservat chidi free DoD influenza, seasonal, injectable-pf 2013 140 [employer] complet ed influenza , seasonal, injectabl e-pf 08/21/14 Given Ambulat ory Pharmac y influenza, seasonal, injectable 2013 [id number] 141 complet ed influenza , seasonal, injectabl e 08/21/14 Given Ambulat ory Pharmac y Influenza, seasonal, injectable, preservative free 0 2013 140 [facility] [employer] (CSL) complet ed Influenza , seasonal, injectabl e, preservat chidi free DoD Influenza, seasonal, injectable 1 2013 [id number] 141 Transcribed (TRS) complet ed Influenza , seasonal, injectabl e DoD influenza, seasonal, injectable 2012 141 complet ed influenza , seasonal, injectabl e 08/10/13 Given Ambulat ory Pharmac y Influenza, seasonal, injectable 0 2012 141 (MVX) complet ed Influenza , seasonal, injectabl e DoD tetanus, diphtheria, acellular pertu is 2011 [id number] 115 sanofi pasteur complet ed tetanus, diphtheri a, acellular pertussis 08/24/12 Given Ambulat ory Pharmac y tetanus toxoid, reduced diphtheria toxoid, and acellular pertu is vaccine, adsorbed 0 2011 [id number] 115 Sanofi Pasteur (PMC) complet ed tetanus toxoid, reduced diphtheri a toxoid, and acellular pertussis vaccine, adsorbed DoD influenza, seasonal, injectable 2011 141 sanofi pasteur complet ed influenza , seasonal, injectabl e 08/13/12 Given Ambulat ory Pharmac y Influenza, seasonal, injectable 0 2011 141 Sanofi Pasteur ([facility]MC) complet ed Influenza , seasonal, injectabl e DoD influenza, seasonal, injectable 2011 [id number] 141 sanofi pasteur complet ed influenza , seasonal, injectabl e 08/11/12 Given Ambulat ory Pharmac y Influenza, seasonal, injectable 1 2011 [id number] 141 Sanofi Pasteur ([facility]) complet ed Influenza , seasonal, injectabl e DoD influenza, seasonal, injectable 2010 141 Novartis Pharmaceutica ls complet ed influenza , seasonal, injectabl e 08/18/11 Given Ambulat ory Pharmac y influenza, seasonal, injectable-pf 2010 [id number] 140 Novartis Pharmaceutica ls complet ed influenza , seasonal, injectabl e-pf 08/18/11 Given Ambulat ory Pharmac y Influenza, seasonal, injectable, preservative free 1 2010 140 Novartis Pharmaceutica l Katya. (NOV) complet ed Influenza , seasonal, injectabl e, preservat chidi free DoD Influenza, seasonal, injectable 0 2010 141 Novartis Pharmaceutica l Katya. (NOV) complet ed Influenza , seasonal, injectabl e DoD influenza virus vaccine,split 2009 [id number] 15 sanofi pasteur complet ed influenza virus vaccine,s plit 09/14/10 Given Ambulat ory Pharmac y influenza virus vaccine, split virus (incl. purified surface antigen)-reti red CODE 2 2009 [id number] 15 Sanofi Pasteur ([facility]) complet ed influenza virus vaccine, split virus (incl. purified surface antigen)- retired CODE DoD Novel influenza-H1N 1-09, injectable 2009 [id number] 1 127 Novartis Pharmaceutica complet ed Novel influenza -Y3X1-05, injectabl e 12/04/09 Given Ambulat ory Pharmac y Novel influenza-H1N 1-09, injectable 1 2009 [id number] 1 127 Novartis Pharmaceutica l Katya. (NOV) complet ed Novel influenza -V3P0-66, injectabl e DoD influenza virus vaccine, live 2008 [id number] 111 [employer] comple t ed influenza virus vaccine, live 08/18/09 Given Ambulat ory Pharmac y influenza virus vaccine, live, attenuated, for intranasal use 1 2008 [id number] 111 MedImmune, Inc. (MED) complet ed influenza virus vaccine, live, attenuate d, for intranasa l use DoD influenza virus vaccine,split 2007 [id number] [facility] influenza virus vaccine,s plit 09/14/08 Given Ambulat ory Pharmac y influenza virus vaccine, split virus (incl. purified surface antigen)-reti red CODE 1 2007 [id number] 2AA 15 [facility] (SKB) complet ed influenza virus vaccine, split virus (incl. purified surface antigen)- retired CODE DoD typhoid vaccine, parenteral 2007 41 complet ed typhoid vaccine, parentera l 04/28/08 Given Ambulat ory Pharmac y typhoid vaccine, parenteral, other than acetone-kille d, dried 2 2007 41 Transcribed (TRS) complet ed typhoid vaccine, parentera l, other than acetone-k illed, dried DoD influenza virus vaccine,split 2006 [id number] [id number] 15 3D [employer] ne complet ed influenza virus vaccine,s plit 10/22/07 Given Ambulat ory Pharmac y influenza virus vaccine, split virus (incl. purified surface antigen)-reti red CODE 1 2006 [id number] 9AA 15 [facility] (B) complet ed influenza virus vaccine, split virus (incl. purified surface antigen)- retired CODE DoD influenza virus vaccine,split 2006 [id number] 15 Unknown complet ed influenza virus vaccine,s plit 11/16/06 Given Ambulat ory Pharmac y influenza virus vaccine, split virus (incl. purified surface antigen)-reti red CODE 1 2006 [id number] 15 Other (OTH) complet ed influenza virus vaccine, split virus (incl. purified surface antigen)- retired CODE [facility] varicella virus vaccine 0 2005 21 () Not Given varicella virus vaccine [facility] tetanus-dipht h toxoids (Td) adult/adol 2005 [id number] 09 sanofi pasteur complet ed tetanus-d iphth toxoids (Td) adult/ado l 03/17/06 Given Ambulat ory Pharmac y typhoid vaccine, parenteral 2005 [id number] 41 sanofi pasteur complet ed typhoid vaccine, parentera l 03/17/06 Given Ambulat ory Pharmac y tetanus and diphtheria toxoids, adsorbed, preservative free, for adult use (2 Lf of tetanus toxoid and 2 Lf of diphtheria toxoid) 1 2005 [id number] 09 Sanofi Pasteur ([facility]) complet ed tetanus and diphtheri a toxoids, adsorbed, preservat chidi free, for adult use (2 Lf of tetanus toxoid and 2 Lf of diphtheri a toxoid) DoD typhoid vaccine, parenteral, other than acetone-kille d, dried 1 2005 [id number] 41 Sanofi Pasteur ([facility]) complet ed typhoid vaccine, parentera l, other than acetone-k illed, dried DoD tuberculin purified protein derivative 2003 UNK 96 Unknown complet ed tuberculi n purified protein derivativ e 01/19/04 Given Ambulat ory Pharmac y tuberculin purified protein derivative 2002 UNK 96 Unknown complet ed tuberculi n purified protein derivativ e 12/05/02 Given Ambulat ory Pharmac y anthrax vaccine 2002 [id number] 24 [employer] complet ed anthrax vaccine 12/02/02 Given Ambulat ory Pharmac y anthrax vaccine 1 2002 [id number] 24 [employer] ([facility]) complet ed anthrax vaccine DoD ANTHRAX VACCINE, UNSPECIFIED 2002 319 complet ed Lot#: [id number] Mfr: [employer] [facility] tetanus-dipht h toxoids (Td) adult/adol 2002 [id number] 09 sanofi pasteur complet ed tetanus-d iphth toxoids (Td) adult/ado l 11/21/02 Given Ambulat ory Pharmac y measles/mumps /rubella virus vaccine 2002 [id number] 03 Merck & Company Inc complet ed measles/m umps/rube lla virus vaccine 11/21/02 Given Ambulat ory Pharmac y hepatitis B adult vaccine 2002 [id number] 43 Unknown complet ed hepatitis B adult vaccine 11/21/02 Given Ambulat ory Pharmac y hepatitis A adult vaccine 2002 [id number] 52 Unknown complet ed hepatitis A adult vaccine 11/21/02 Given Ambulat ory Pharmac y measles, mumps and rubella virus vaccine 0 2002 [id number] 03 Merck (MSD) complet ed measles, mumps and rubella virus vaccine DoD tetanus and diphtheria toxoids, adsorbed, preservative free, for adult use (2 Lf of tetanus toxoid and 2 Lf of diphtheria toxoid) 0 2002 [id number] 09 Sanofi Pasteur ([facility]) complet ed tetanus and diphtheri a toxoids, adsorbed, preservat chidi free, for adult use (2 Lf of tetanus toxoid and 2 Lf of diphtheri a toxoid) DoD hepatitis B vaccine, adult dosage 4 2002 [id number] A4 43 Unknown (UNK) complet ed hepatitis B vaccine, adult dosage DoD hepatitis A vaccine, adult dosage 4 2002 [id number] 6 52 Unknown (UNK) complet ed hepatitis A vaccine, adult dosage DoD HEP B, ADULT 3 2002 43 complet ed [facility] MMR 2002 03 complet ed measles, mumps and rubella virus vaccine Lot#: [id number] Mfr: [employer] [facility] hepatitis A adult vaccine 2001 UNK 52 Unknown complet ed hepatitis A adult vaccine 10/08/02 Given Ambulat ory Pharmac y typhoid vaccine, unspecified formulation 2001 UNK 91 Unknown complet ed typhoid vaccine, unspecifi ed formulati on 10/08/02 Given Ambulat ory Pharmac y yellow fever vaccine 2001 UNK 37 Unknown complet ed yellow fever vaccine 10/08/02 Given Ambulat ory Pharmac y influenza virus vaccine,split 2001 UNK 15 Unknown complet ed influenza virus vaccine,s plit 10/08/02 Given Ambulat ory Pharmac y hepatitis B adult vaccine 2001 UNK 43 Unknown complet ed hepatitis B adult vaccine 10/08/02 Given Ambulat ory Pharmac y influenza virus vaccine, split virus (incl. purified surface antigen)-reti red CODE 0 2001 UNK 15 Unknown (UNK) comple t ed influenza virus vaccine, split virus (incl. purified surface antigen)- retired CODE DoD yellow fever vaccine 0 2001 UNK 37 Unknown (UNK) comple t ed yellow fever vaccine DoD hepatitis B vaccine, adult dosage 1 2001 UNK 43 Unknown (UNK) comple t ed hepatitis B vaccine, adult dosage DoD hepatitis A vaccine, adult dosage 1 2001 UNK 52 Unknown (UNK) comple t ed hepatitis A vaccine, adult dosage DoD typhoid vaccine, unspecified formulation 0 2001 UNK 91 Unknown (UNK) comple t ed typhoid vaccine, unspecifi ed formulati on DoD HEP B, ADULT 2 2001 43 complet ed [facility] yellow fever vaccine 2001 UNK 37 Unknown complet ed yellow fever vaccine 09/27/02 Given Ambulat ory Pharmac y measles/mumps /rubella virus vaccine 2001 UNK 03 Unknown complet ed measles/m umps/rube lla virus vaccine 09/27/02 Given Ambulat ory Pharmac y hepatitis B adult vaccine 2001 UNK 43 Unknown complet ed hepatitis B adult vaccine 09/27/02 Given Ambulat ory Pharmac y influenza virus vaccine,split 2001 UNK 15 Unknown complet ed influenza virus vaccine,s plit 09/27/02 Given Ambulat ory Pharmac y hepatitis A adult vaccine 2001 UNK 52 Unknown complet ed hepatitis A adult vaccine 09/27/02 Given Ambulat ory Pharmac y typhoid Vi capsular polysaccharid e vac 2001 UNK 101 Unknown complet ed typhoid Vi capsular polysacch aride vac 09/27/02 Given Ambulat ory Pharmac y measles, mumps and rubella virus vaccine 0 2001 UNK 03 Unknown (UNK) comple t ed measles, mumps and rubella virus vaccine DoD influenza virus vaccine, split virus (incl. purified surface antigen)-reti red CODE 1 2001 UNK 15 Unknown (UNK) comple t ed influenza virus vaccine, split virus (incl. purified surface antigen)- retired CODE DoD yellow fever vaccine 0 2001 UNK 37 Unknown (UNK) comple t ed yellow fever vaccine DoD hepatitis B vaccine, adult dosage 2 2001 UNK 43 Unknown (UNK) comple t ed hepatitis B vaccine, adult dosage DoD hepatitis A vaccine, adult dosage 2 2001 UNK 52 Unknown (UNK) comple t ed hepatitis A vaccine, adult dosage DoD typhoid Vi capsular polysaccharid e vaccine 0 2001 UNK 101 Unknown (UNK) comple t ed typhoid Vi capsular polysacch aride vaccine DoD HEP B, ADULT 1 2001 43 complet ed [facility] MMR 2001 03 complet ed measles/m umps/rube lla virus vaccine [facility] hepatitis B adult vaccine 1999 UNK 43 Unknown complet ed hepatitis B adult vaccine 08/16/00 Given Ambulat ory Pharmac y measles/mumps /rubella virus vaccine 1999 UNK 03 Unknown complet ed measles/m umps/rube lla virus vaccine 08/16/00 Given Ambulat ory Pharmac y hepatitis A adult vaccine 1999 UNK 52 Unknown complet ed hepatitis A adult vaccine 08/16/00 Given Ambulat ory Pharmac y meningococcal polysaccharid e (MPSV4) 1999 UNK 32 Unknown complet ed meningoco ccal polysacch aride (MPSV4) 08/16/00 Given Ambulat ory Pharmac y tetanus-dipht h toxoids (Td) adult/adol 1999 UNK 09 Unknown complet ed tetanus-d iphth toxoids (Td) adult/ado l 08/16/00 Given Ambulat ory Pharmac y poliovirus vaccine, inactivated 1999 UNK 10 Unknown complet ed polioviru s vaccine, inactivat ed 08/16/00 Given Ambulat ory Pharmac y measles, mumps and rubella virus vaccine 0 1999 UNK 03 Unknown (UNK) comple t ed measles, mumps and rubella virus vaccine DoD tetanus and diphtheria toxoids, adsorbed, preservative free, for adult use (2 Lf of tetanus toxoid and 2 Lf of diphtheria toxoid) 0 1999 UNK 09 Unknown (UNK) comple t ed tetanus and diphtheri a toxoids, adsorbed, preservat chidi free, for adult use (2 Lf of tetanus toxoid and 2 Lf of diphtheri a toxoid) DoD poliovirus vaccine, inactivated 0 1999 UNK 10 Unknown (UNK) comple t ed polioviru s vaccine, inactivat ed DoD meningococcal polysaccharid e vaccine (MPSV4) 0 1999 UNK 32 Unknown (UNK) comple t ed meningoco ccal polysacch aride vaccine (MPSV4) DoD hepatitis B vaccine, adult dosage 1 1999 UNK 43 Unknown (UNK) comple t ed hepatitis B vaccine, adult dosage DoD hepatitis A vaccine, adult dosage 1 1999 UNK 52 Unknown (UNK) comple t ed hepatitis A vaccine, adult dosage DoD MENINGOCOCCAL MPSV4 1999 32 complet ed meningoco ccal polysacch aride vaccine (MPSV4) [facility] MMR 1999 03 complet ed measles/m umps/rube lla virus vaccine [facility] POLIO, UNSPECIFIED FORMULATION 1999 89 complet ed polioviru s vaccine, inactivat ed [facility] Results Combined list of recent chemistry, hematology and other laboratory results from [employer] and [employer], ranging from 15 months to all on record, depending upon the facility. Order Name Results Value Reference Range Date Interpretation Specimen Comments Source METHADON E SCREEN METHADONE [PRESENCE] IN URINE BY SCREEN METHOD None detected (Negativ e) 10/09 L Specimen Type: URINE Comment: YAMEL test are qualitative , any L or H flags only indicate a [facility] alert was sent. Ordering Provider: PHILIPPE ARREOLA Report Released Date/Time: Oct 09, 2024 10:18 AM Reporting Lab[facility] [address] [facility] [address] Performing Lab: [facility] [address] [facility] [address] [facility] ALCOHOL, ETHYL URINE PANEL ETHANOL [MASS/VOLU ME] IN URINE NONE-DET ECTEDmg/ dL - 10 10/09 Specimen Type: URINE Comment: Urine with Cr <5 is diluted or substituted . Cr between 5 and 20 is very dilute. Urine with SG of 1.001 or less is diluted or substituted . SG of 1.003 or less is very dilute. Urine with a pH <3 or >11 has been adulterated and is unsuitable for testing by our current method. Urine with pH between 3 and 4 OR 10 and 11 may have been adulterated . Ordering Provider: PHILIPPE ARREOLA Report Released Date/Time: Oct 09, 2024 10:18 AM Reporting Lab: [facility] [address] [address] Performing Lab: [facility] [address] [facility] ALCOHOL, ETHYL URINE PANEL PH OF URINE 5.7 [pH] 4 - 10 10/09 Specimen Type: URINE Comment: Urine with Cr <5 is diluted or substituted . Cr between 5 and 20 is very dilute. Urine with SG of 1.001 or less is diluted or substituted . SG of 1.003 or less is very dilute. Urine with a pH <3 or >11 has been adulterated and is unsuitable for testing by our current method. Urine with pH between 3 and 4 OR 10 and 11 may have been adulterated . Ordering Provider: PHILIPPE ARREOLA Report Released Date/Time: Oct 09, 2024 10:18 AM Reporting Lab: [address] [address] Performing Lab: [facility] [address] [facility] ALCOHOL, ETHYL URINE PANEL CREATININE [MASS/VOLU ME] IN URINE 153.27 mg/dL 10/09 Specimen Type: URINE Comment: Urine with Cr <5 is diluted or substituted . Cr between 5 and 20 is very dilute. Urine with SG of 1.001 or less is diluted or substituted . SG of 1.003 or less is very dilute. Urine with a pH <3 or >11 has been adulterated and is unsuitable for testing by our current method. Urine with pH between 3 and 4 OR 10 and 11 may have been adulterated . Ordering Provider: PHILIPPE ARREOLA Report Released Date/Time: Oct 09, 2024 10:18 AM Reporting Lab: [facility] [address] Performing Lab: [facility] [address] [address] [facility] ALCOHOL, ETHYL URINE PANEL SPECIFIC GRAVITY OF URINE 1.018 1.003 - 1.020 10/09 Specimen Type: URINE Comment: Urine with Cr <5 is diluted or substituted . Cr between 5 and 20 is very dilute. Urine with SG of 1.001 or less is diluted or substituted . SG of 1.003 or less is very dilute. Urine with a pH <3 or >11 has been adulterated and is unsuitable for testing by our current method. Urine with pH between 3 and 4 OR 10 and 11 may have been adulterated . Ordering Provider: PHILIPPE ARREOLA Report Released Date/Time: Oct 09, 2024 10:18 AM Reporting Lab: [facility] [place] [address] [address] Performing Lab: [facility] [address] [address] [facility] AMPHETAM MARY SCREEN PANEL AMPHETAMIN ES [PRESENCE] IN URINE NONE-DET ECTED - 1000 10/09 Specimen Type: URINE Comment: Urine with Cr <5 is diluted or substituted . Cr between 5 and 20 is very dilute. Urine with SG of 1.001 or less is diluted or substituted . SG of 1.003 or less is very dilute. Urine with a pH <3 or >11 has been adulterated and is unsuitable for testing by our current method. Urine with pH between 3 and 4 OR 10 and 11 may have been adulterated . Ordering Provider: PHILIPPE ARREOLA Report Released Date/Time: Oct 09, 2024 10:18 AM Reporting Lab: [facility] [place] [address] [address] Performing Lab: [facility] [place] [address] [address] [facility] AMPHETAM MARY SCREEN PANEL PH OF URINE 5.7 [pH] 4 - 10 10/09 Specimen Type: URINE Comment: Urine with Cr <5 is diluted or substituted . Cr between 5 and 20 is very dilute. Urine with SG of 1.001 or less is diluted or substituted . SG of 1.003 or less is very dilute. Urine with a pH <3 or >11 has been adulterated and is unsuitable for testing by our current method. Urine with pH between 3 and 4 OR 10 and 11 may have been adulterated . Ordering Provider: PHILIPPE ARREOLA Report Released Date/Time: Oct 09, 2024 10:18 AM Reporting Lab: [place] [facility] [place] [address] [address] Performing Lab: [facility] [place] [address] [address] [facility] [place] [facility] AMPHETAM MARY SCREEN PANEL CREATININE [MASS/VOLU ME] IN URINE 153.27 mg/dL 10/09 Specimen Type: URINE Comment: Urine with Cr <5 is diluted or substituted . Cr between 5 and 20 is very dilute. Urine with SG of 1.001 or less is diluted or substituted . SG of 1.003 or less is very dilute. Urine with a pH <3 or >11 has been adulterated and is unsuitable for testing by our current method. Urine with pH between 3 and 4 OR 10 and 11 may have been adulterated . Ordering Provider: PHILIPPE ARREOLA Report Released Date/Time: Oct 09, 2024 10:18 AM Reporting Lab: [facility] [place] [address] [address] Performing Lab: [facility] TRN [facility] [address] [address] [facility] TRN [facility] AMPHETAM MARY SCREEN PANEL SPECIFIC GRAVITY OF URINE 1.018 1.003 - 1.020 10/09 Specimen Type: URINE Comment: Urine with Cr <5 is diluted or substituted . Cr between 5 and 20 is very dilute. Urine with SG of 1.001 or less is diluted or substituted . SG of 1.003 or less is very dilute. Urine with a pH <3 or >11 has been adulterated and is unsuitable for testing by our current method. Urine with pH between 3 and 4 OR 10 and 11 may have been adulterated . Ordering Provider: PHILIPPE ARREOLA Report Released Date/Time: Oct 09, 2024 10:18 AM Reporting Lab: [facility] [place] [address] [address] Performing Lab: [facility] [address] [address] [facility] FENTANYL SCREEN PANEL FENTANYL [PRESENCE] IN URINE BY SCREEN METHOD NONE-DET ECTEDng/ mL 10/09 Specimen Type: URINE Comment: Urine with Cr <5 is diluted or substituted . Cr between 5 and 20 is very dilute. Urine with SG of 1.001 or less is diluted or substituted . SG of 1.003 or less is very dilute. Urine with a pH <3 or >11 has been adulterated and is unsuitable for testing by our current method. Urine with pH between 3 and 4 OR 10 and 11 may have been adulterated . FENTANYL CONFIRMATIO N NOT SENT BY LAB. Ordering Provider: PHILIPPE ARREOLA Report Released Date/Time: Oct 09, 2024 10:18 AM Reporting Lab: [address] [address] Performing Lab: [address] [address] [facility] FENTANYL SCREEN PANEL PH OF URINE 5.7 [pH] 4 - 10 10/09 Specimen Type: URINE Comment: Urine with Cr <5 is diluted or substituted . Cr between 5 and 20 is very dilute. Urine with SG of 1.001 or less is diluted or substituted . SG of 1.003 or less is very dilute. Urine with a pH <3 or >11 has been adulterated and is unsuitable for testing by our current method. Urine with pH between 3 and 4 OR 10 and 11 may have been adulterated . FENTANYL CONFIRMATIO N NOT SENT BY LAB. Ordering Provider: PHILIPPE ARREOLA Report Released Date/Time: Oct 09, 2024 10:18 AM Reporting Lab: [address] [address] Performing Lab: [address] [address] [facility] FENTANYL SCREEN PANEL CREATININE [MASS/VOLU ME] IN URINE 155.37 mg/dL 10/09 Specimen Type: URINE Comment: Urine with Cr <5 is diluted or substituted . Cr between 5 and 20 is very dilute. Urine with SG of 1.001 or less is diluted or substituted . SG of 1.003 or less is very dilute. Urine with a pH <3 or >11 has been adulterated and is unsuitable for testing by our current method. Urine with pH between 3 and 4 OR 10 and 11 may have been adulterated . FENTANYL CONFIRMATIO N NOT SENT BY LAB. Ordering Provider: PHILIPPE ARREOLA Report Released Date/Time: Oct 09, 2024 10:18 AM Reporting Lab: [facility]USE[address] [address] Performing Lab: [address] [address] [facility] FENTANYL SCREEN PANEL SPECIFIC GRAVITY OF URINE 1.018 1.003 - 1.020 10/09 Specimen Type: URINE Comment: Urine with Cr <5 is diluted or substituted . Cr between 5 and 20 is very dilute. Urine with SG of 1.001 or less is diluted or substituted . SG of 1.003 or less is very dilute. Urine with a pH <3 or >11 has been adulterated and is unsuitable for testing by our current method. Urine with pH between 3 and 4 OR 10 and 11 may have been adulterated . FENTANYL CONFIRMATIO N NOT SENT BY LAB. Ordering Provider: PHILIPPE ARREOLA Report Released Date/Time: Oct 09, 2024 10:18 AM Reporting Lab: [address] [address] Performing Lab: [facility] [address] [facility] BENZODIA ZEPINES SCREEN PANEL BENZODIAZE PINES [PRESENCE] IN URINE BY SCREEN METHOD POSITIVE - 200 10/09 Specimen Type: URINE Comment: Urine with Cr <5 is diluted or substituted . Cr between 5 and 20 is very dilute. Urine with SG of 1.001 or less is diluted or substituted . SG of 1.003 or less is very dilute. Urine with a pH <3 or >11 has been adulterated and is unsuitable for testing by our current method. Urine with pH between 3 and 4 OR 10 and 11 may have been adulterated . Ordering Provider: PHILIPPE ARREOLA Report Released Date/Time: Oct 09, 2024 10:18 AM Reporting Lab: [facility] [place] [facility] [address] [facility] [address] Performing Lab: [facility] [place] [address] [address] [facility] [place] [facility] BENZODIA ZEPINES SCREEN PANEL PH OF URINE 5.7 [pH] 4 - 10 10/09 Specimen Type: URINE Comment: Urine with Cr <5 is diluted or substituted . Cr between 5 and 20 is very dilute. Urine with SG of 1.001 or less is diluted or substituted . SG of 1.003 or less is very dilute. Urine with a pH <3 or >11 has been adulterated and is unsuitable for testing by our current method. Urine with pH between 3 and 4 OR 10 and 11 may have been adulterated . Ordering Provider: PHILIPPE ARREOLA Report Released Date/Time: Oct 09, 2024 10:18 AM Reporting Lab: [facility] [place] [address] [address] Performing Lab: [facility] [place] [address] [address] [facility] [place] [facility] BENZODIA ZEPINES SCREEN PANEL CREATININE [MASS/VOLU ME] IN URINE 153.27 mg/dL 10/09 Specimen Type: URINE Comment: Urine with Cr <5 is diluted or substituted . Cr between 5 and 20 is very dilute. Urine with SG of 1.001 or less is diluted or substituted . SG of 1.003 or less is very dilute. Urine with a pH <3 or >11 has been adulterated and is unsuitable for testing by our current method. Urine with pH between 3 and 4 OR 10 and 11 may have been adulterated . Ordering Provider: PHILIPPE ARREOLA Report Released Date/Time: Oct 09, 2024 10:18 AM Reporting Lab: [place] [place] [address] [address] Performing Lab: [address] [address] [facility] BENZODIA ZEPINES SCREEN PANEL SPECIFIC GRAVITY OF URINE 1.018 1.003 - 1.020 10/09 Specimen Type: URINE Comment: Urine with Cr <5 is diluted or substituted . Cr between 5 and 20 is very dilute. Urine with SG of 1.001 or less is diluted or substituted . SG of 1.003 or less is very dilute. Urine with a pH <3 or >11 has been adulterated and is unsuitable for testing by our current method. Urine with pH between 3 and 4 OR 10 and 11 may have been adulterated . Ordering Provider: PHILIPPE ARREOLA Report Released Date/Time: Oct 09, 2024 10:18 AM Reporting Lab: [address] [address] Performing Lab: [address] [address] [facility] BUPRENOR PHINE SCREEN PANEL BUPRENORPH INE [PRESENCE] IN URINE NONE-DET ECTED 10/09 Specimen Type: URINE Comment: Urine with Cr <5 is diluted or substituted . Cr between 5 and 20 is very dilute. Urine with SG of 1.001 or less is diluted or substituted . SG of 1.003 or less is very dilute. Urine with a pH <3 or >11 has been adulterated and is unsuitable for testing by our current method. Urine with pH between 3 and 4 OR 10 and 11 may have been adulterated . Ordering Provider: PHILIPPE ARREOLA Report Released Date/Time: Oct 09, 2024 10:18 AM Reporting Lab: [address] [address] Performing Lab: [address] [address] [facility] BUPRENOR PHINE SCREEN PANEL PH OF URINE 5.7 [pH] 4 - 10 10/09 Specimen Type: URINE Comment: Urine with Cr <5 is diluted or substituted . Cr between 5 and 20 is very dilute. Urine with SG of 1.001 or less is diluted or substituted . SG of 1.003 or less is very dilute. Urine with a pH <3 or >11 has been adulterated and is unsuitable for testing by our current method. Urine with pH between 3 and 4 OR 10 and 11 may have been adulterated . Ordering Provider: PHILIPPE ARREOLA Report Released Date/Time: Oct 09, 2024 10:18 AM Reporting Lab: [facility] [place] [address] [address] Performing Lab: [facility] [address] [address] [facility] BUPRENOR PHINE SCREEN PANEL CREATININE [MASS/VOLU ME] IN URINE 153.27 mg/dL 10/09 Specimen Type: URINE Comment: Urine with Cr <5 is diluted or substituted . Cr between 5 and 20 is very dilute. Urine with SG of 1.001 or less is diluted or substituted . SG of 1.003 or less is very dilute. Urine with a pH <3 or >11 has been adulterated and is unsuitable for testing by our current method. Urine with pH between 3 and 4 OR 10 and 11 may have been adulterated . Ordering Provider: PHILIPPE ARREOLA Report Released Date/Time: Oct 09, 2024 10:18 AM Reporting Lab: [facility] [address] Performing Lab: [address] [address] [facility] BUPRENOR PHINE SCREEN PANEL SPECIFIC GRAVITY OF URINE 1.018 1.003 - 1.020 10/09 Specimen Type: URINE Comment: Urine with Cr <5 is diluted or substituted . Cr between 5 and 20 is very dilute. Urine with SG of 1.001 or less is diluted or substituted . SG of 1.003 or less is very dilute. Urine with a pH <3 or >11 has been adulterated and is unsuitable for testing by our current method. Urine with pH between 3 and 4 OR 10 and 11 may have been adulterated . Ordering Provider: PHILIPPE ARREOLA Report Released Date/Time: Oct 09, 2024 10:18 AM Reporting Lab: [facility] [place] [facility] [address] [facility] [address] Performing Lab: [facility] [place] [facility] [address] [facility] [address] [facility] [place] [facility] CANNABIN OIDS SCREEN PANEL CANNABINOI DS [PRESENCE] IN URINE BY SCREEN METHOD POSITIVE - 50 10/09 HH Specimen Type: URINE Comment: Urine with Cr <5 is diluted or substituted . Cr between 5 and 20 is very dilute. Urine with SG of 1.001 or less is diluted or substituted . SG of 1.003 or less is very dilute. Urine with a pH <3 or >11 has been adulterated and is unsuitable for testing by our current method. Urine with pH between 3 and 4 OR 10 and 11 may have been adulterated . Ordering Provider: PHILIPPE ARREOLA Report Released Date/Time: Oct 09, 2024 10:18 AM Reporting Lab: [facility] [place] [facility] [address] [facility] [address] Performing Lab: [place] [facility] [place] [address] [address] [place] [facility] [place] [facility] CANNABIN OIDS SCREEN PANEL PH OF URINE 5.7 [pH] 4 - 10 10/09 Specimen Type: URINE Comment: Urine with Cr <5 is diluted or substituted . Cr between 5 and 20 is very dilute. Urine with SG of 1.001 or less is diluted or substituted . SG of 1.003 or less is very dilute. Urine with a pH <3 or >11 has been adulterated and is unsuitable for testing by our current method. Urine with pH between 3 and 4 OR 10 and 11 may have been adulterated . Ordering Provider: PHILIPPE ARREOLA Report Released Date/Time: Oct 09, 2024 10:18 AM Reporting Lab: [facility] [place] [facility] [address] [facility] [address] Performing Lab: [place] [facility] [place] [address] [address] [facility] [place] [facility] CANNABIN OIDS SCREEN PANEL CREATININE [MASS/VOLU ME] IN URINE 153.27 mg/dL 20 10/09 Specimen Type: URINE Comment: Urine with Cr <5 is diluted or substituted . Cr between 5 and 20 is very dilute. Urine with SG of 1.001 or less is diluted or substituted . SG of 1.003 or less is very dilute. Urine with a pH <3 or >11 has been adulterated and is unsuitable for testing by our current method. Urine with pH between 3 and 4 OR 10 and 11 may have been adulterated . Ordering Provider: PHILIPPE ARREOLA Report Released Date/Time: Oct 09, 2024 10:18 AM Reporting Lab: [address] [address] Performing Lab: [address] [address] [facility] CANNABIN OIDS SCREEN PANEL SPECIFIC GRAVITY OF URINE 1.018 1.003 - 1.020 10/09 Specimen Type: URINE Comment: Urine with Cr <5 is diluted or substituted . Cr between 5 and 20 is very dilute. Urine with SG of 1.001 or less is diluted or substituted . SG of 1.003 or less is very dilute. Urine with a pH <3 or >11 has been adulterated and is unsuitable for testing by our current method. Urine with pH between 3 and 4 OR 10 and 11 may have been adulterated . Ordering Provider: PHILIPPE ARREOLA Report Released Date/Time: Oct 09, 2024 10:18 AM Reporting Lab: [address] [address] Performing Lab: [address] [address] [facility] COCAINE SCREEN PANEL COCAINE [PRESENCE] IN URINE BY SCREEN METHOD NONE-DET ECTED - 300 10/09 Specimen Type: URINE Comment: Urine with Cr <5 is diluted or substituted . Cr between 5 and 20 is very dilute. Urine with SG of 1.001 or less is diluted or substituted . SG of 1.003 or less is very dilute. Urine with a pH <3 or >11 has been adulterated and is unsuitable for testing by our current method. Urine with pH between 3 and 4 OR 10 and 11 may have been adulterated . Ordering Provider: PHILIPPE ARREOLA Report Released Date/Time: Oct 09, 2024 10:18 AM Reporting Lab: [facility] HIGHLANDSTRN [address] [address] Performing Lab: [facility]ITALN [address] [address] [facility] COCAINE SCREEN PANEL PH OF URINE 5.7 [pH] 4 - 10 10/09 Specimen Type: URINE Comment: Urine with Cr <5 is diluted or substituted . Cr between 5 and 20 is very dilute. Urine with SG of 1.001 or less is diluted or substituted . SG of 1.003 or less is very dilute. Urine with a pH <3 or >11 has been adulterated and is unsuitable for testing by our current method. Urine with pH between 3 and 4 OR 10 and 11 may have been adulterated . Ordering Provider: PHILIPPE ARREOLA Report Released Date/Time: Oct 09, 2024 10:18 AM Reporting Lab: [facility]ITALN [address] [address] Performing Lab: [facility]ITAL[facility]ITALN [address] [address] [facility] COCAINE SCREEN PANEL CREATININE [MASS/VOLU ME] IN URINE 153.27 mg/dL 10/09 Specimen Type: URINE Comment: Urine with Cr <5 is diluted or substituted . Cr between 5 and 20 is very dilute. Urine with SG of 1.001 or less is diluted or substituted . SG of 1.003 or less is very dilute. Urine with a pH <3 or >11 has been adulterated and is unsuitable for testing by our current method. Urine with pH between 3 and 4 OR 10 and 11 may have been adulterated . Ordering Provider: PHILIPPE ARREOLA Report Released Date/Time: Oct 09, 2024 10:18 AM Reporting Lab: [facility]ITALN [facility] [address] Performing Lab: [facility] [address] [facility] [address] [facility] COCAINE SCREEN PANEL SPECIFIC GRAVITY OF URINE 1.018 1.003 - 1.020 10/09 Specimen Type: URINE Comment: Urine with Cr <5 is diluted or substituted . Cr between 5 and 20 is very dilute. Urine with SG of 1.001 or less is diluted or substituted . SG of 1.003 or less is very dilute. Urine with a pH <3 or >11 has been adulterated and is unsuitable for testing by our current method. Urine with pH between 3 and 4 OR 10 and 11 may have been adulterated . Ordering Provider: PHILIPPE ARREOLA Report Released Date/Time: Oct 09, 2024 10:18 AM Reporting Lab: [address] [address] Performing Lab: [address] [address] [facility] OPIATES SCREEN PANEL OPIATES [PRESENCE] IN URINE BY SCREEN METHOD NONE-DET ECTED - 300 10/09 Specimen Type: URINE Comment: Urine with Cr <5 is diluted or substituted . Cr between 5 and 20 is very dilute. Urine with SG of 1.001 or less is diluted or substituted . SG of 1.003 or less is very dilute. Urine with a pH <3 or >11 has been adulterated and is unsuitable for testing by our current method. Urine with pH between 3 and 4 OR 10 and 11 may have been adulterated . Ordering Provider: PHILIPPE ARREOLA Report Released Date/Time: Oct 09, 2024 10:18 AM Reporting Lab: [address] [address] Performing Lab: [address] [address] [facility] OPIATES SCREEN PANEL PH OF URINE 5.7 [pH] 4 - 10 10/09 Specimen Type: URINE Comment: Urine with Cr <5 is diluted or substituted . Cr between 5 and 20 is very dilute. Urine with SG of 1.001 or less is diluted or substituted . SG of 1.003 or less is very dilute. Urine with a pH <3 or >11 has been adulterated and is unsuitable for testing by our current method. Urine with pH between 3 and 4 OR 10 and 11 may have been adulterated . Ordering Provider: PHILIPPE ARREOLA Report Released Date/Time: Oct 09, 2024 10:18 AM Reporting Lab: [facility] [place] [address] [address] Performing Lab: [facility] HIGHLANDSTRN [facility] [address] [facility] OPIATES SCREEN PANEL CREATININE [MASS/VOLU ME] IN URINE 153.27 mg/dL 10/09 Specimen Type: URINE Comment: Urine with Cr <5 is diluted or substituted . Cr between 5 and 20 is very dilute. Urine with SG of 1.001 or less is diluted or substituted . SG of 1.003 or less is very dilute. Urine with a pH <3 or >11 has been adulterated and is unsuitable for testing by our current method. Urine with pH between 3 and 4 OR 10 and 11 may have been adulterated . Ordering Provider: PHILIPPE ARREOLA Report Released Date/Time: Oct 09, 2024 10:18 AM Reporting Lab: [facility] [address] Performing [facility]: [facility] [address] [facility] OPIATES SCREEN PANEL SPECIFIC GRAVITY OF URINE 1.018 1.003 - 1.020 10/09 Specimen Type: URINE Comment: Urine with Cr <5 is diluted or substituted . Cr between 5 and 20 is very dilute. Urine with SG of 1.001 or less is diluted or substituted . SG of 1.003 or less is very dilute. Urine with a pH <3 or >11 has been adulterated and is unsuitable for testing by our current method. Urine with pH between 3 and 4 OR 10 and 11 may have been adulterated . Ordering Provider: PHILIPPE ARREOLA Report Released Date/Time: Oct 09, 2024 10:18 AM Reporting Lab: [facility] [place] [facility] [address] [facility] [address] Performing Lab: [facility] [place] [facility] [address] [facility] [address] [facility] [place] [facility] OXYCODON E SCREEN PANEL OXYCODONE [PRESENCE] IN URINE BY SCREEN METHOD POSITIVE - 100 10/09 HH Specimen Type: URINE Comment: Urine with Cr <5 is diluted or substituted . Cr between 5 and 20 is very dilute. Urine with SG of 1.001 or less is diluted or substituted . SG of 1.003 or less is very dilute. Urine with a pH <3 or >11 has been adulterated and is unsuitable for testing by our current method. Urine with pH between 3 and 4 OR 10 and 11 may have been adulterated . Ordering Provider: PHILIPPE ARREOLA Report Released Date/Time: Oct 09, 2024 10:18 AM Reporting Lab: [facility] [place] [facility] [address] [facility] [address] Performing Lab: [facility] [place] [address] [address] [facility] OXYCODON E SCREEN PANEL PH OF URINE 5.7 [pH] 4 - 10 10/09 Specimen Type: URINE Comment: Urine with Cr <5 is diluted or substituted . Cr between 5 and 20 is very dilute. Urine with SG of 1.001 or less is diluted or substituted . SG of 1.003 or less is very dilute. Urine with a pH <3 or >11 has been adulterated and is unsuitable for testing by our current method. Urine with pH between 3 and 4 OR 10 and 11 may have been adulterated . Ordering Provider: PHILIPPE ARREOLA Report Released Date/Time: Oct 09, 2024 10:18 AM Reporting Lab: [facility] [place] [facility] [address] [facility] [address] Performing Lab: [facility] [place] [address] [address] [facility] [place] [facility] OXYCODON E SCREEN PANEL CREATININE [MASS/VOLU ME] IN URINE 153.27 mg/dL 20 10/09 Specimen Type: URINE Comment: Urine with Cr <5 is diluted or substituted . Cr between 5 and 20 is very dilute. Urine with SG of 1.001 or less is diluted or substituted . SG of 1.003 or less is very dilute. Urine with a pH <3 or >11 has been adulterated and is unsuitable for testing by our current method. Urine with pH between 3 and 4 OR 10 and 11 may have been adulterated . Ordering Provider: PHILIPPE ARREOLA Report Released Date/Time: Oct 09, 2024 10:18 AM Reporting Lab: [address] [address] Performing Lab: [address] [address] [facility] OXYCODON E SCREEN PANEL SPECIFIC GRAVITY OF URINE 1.018 1.003 - 1.020 10/09 Specimen Type: URINE Comment: Urine with Cr <5 is diluted or substituted . Cr between 5 and 20 is very dilute. Urine with SG of 1.001 or less is diluted or substituted . SG of 1.003 or less is very dilute. Urine with a pH <3 or >11 has been adulterated and is unsuitable for testing by our current method. Urine with pH between 3 and 4 OR 10 and 11 may have been adulterated . Ordering Provider: PHILIPPE ARREOLA Report Released Date/Time: Oct 09, 2024 10:18 AM Reporting Lab: [address] [address] Performing Lab: [address] [address] [facility] Infectio us Disease HIV-1/O/2 Non-Reac tive 13 (04/14/23 11:36 AM) 04/14 N Interpretiv e Data: INTERPRETAT ION: This method is a screening procedure for the detection of HIV p24 Antigen and Antibodies to HIV-1, including Group O, and/or HIV-2. NON-REACTIV E: HIV-1 antigen and HIV-1 / HIV-2 antibodies were not detected. No laboratory evidence of HIV infection. A negative test result does not exclude the possibility of exposure to or infection with HIV. HIV antibodies and/or p24 antigen may be undetectabl e in some stages of the infection and in some clinical conditions. If acute HIV infection is suspected, consider submitting another specimen to a reference laboratory for HIV-1 RNA. SCREEN REACTIVE - CONFIRMATIO N TO FOLLOW: Possible presence of HIV-1antibo dies, HIV-2 antibodies and/or HIV-1 p24 antigen. Specimen will reflex to the confirmatio n testing that fulfills the Center for Disease Control and Prevention' s HIV diagnostic algorithm. Refer to [facility] Lab Guide for additional information : [email or web address]/ [email or web address] [email or web address] [email or web address] x Testing performed by [facility] [employer] Sendouts Repository Sample Received (04/14/23 11:36 AM) 04/14 N [facility] Chemistr y eGFR CKD EPI 109.5 mL/min 01/15 H Interpretiv e Data: Estimated Glomerular Filtration Rate (eGFR) calculated using the 2020 Chronic Kidney Disease-Epi demiology (CKD-EPI) Collaborati on creatinine equation; units of measure are mL/min/1.73 m2. Results are only valid for adults (e18 years) whose serum creatinine is in steady state.? eGFR calculation s are not valid for patients with acute kidney injury and for patients on dialysis. ?Creatinine -based estimates of kidney function may also be inaccurate in patients with reduced creatinine generation due to decreased muscle mass (e.g., malnutritio n, severe hypoalbumin emia, sarcopenia, chronic neuromuscul ar disease, amputations , severe heart failure or liver disease) and in patients with increased creatinine generation due to increased muscle mass (e.g., muscle builders, anabolic steroids) or increased dietary intake. As drug clearance is proportiona l to total GFR and not GFR indexed to body surface area (BSA), in individuals with a BSA substantial ly different than 1.73 m2, drug dosing should be based the reported eGFRvalue de-indexed from BSA by multiplying by the individual s BSA and dividing by 1.73. CKD is diagnosed based on abnormaliti es of kidney structure or function, present for >3 months, with implication s for health and disease. CKD is classified and staged based on cause, eGFR and albuminuria (quantified as urine albumin to creatinine ratio). An eGFR >60 mL/min/1.73 m2 in the absence of increased urine albumin excretion or structural abnormaliti es does not represent CKD.eGFR (mL/min/1.7 3 m2) CKD stage Interpretat ion e90 G1 Normal 60-89 G2 Mild decrease 45-59 G3A Mild to moderate decrease 30-44 G3B Moderate to severe decrease 15-29 G4 Severe decrease <15 G5 Kidney failure [facility] Toxicolo gy Phosphatid ylethanol. LC 181 ng/mL 01/15 H Result Comment: Analyzed compound: PEth 16:0/18:1. 1-palmitoyl -2-oleoyl-s n-glycero-3 -phosphoeth anol. Analysis performed by Liquid Chromatogra phy with Tandem Mass Spectrometr y (LC/MS/MS). Detection limit: 20 ng/mL PEth levels in excess of 20 ng/mL are considered evidence of moderate to heavy ethanol consumption . However, the Center for Substance Abuse Treatment (CSAT) advises caution in interpretat ion and use of biomarkers alone to assess alcohol use. Results should be interpreted in the context of all available clinical and behavioral information . Reference: Substance Abuse and Mental Health Services Administrat ion (2012). The Role of Biomarkers in the Treatment of Alcohol Use Disorders , 2012 Revision. Advisory, Volume 11, Issue 2. This test was developed and its performance characteris tics determined by [employer]. It has not been cleared or approved by the Food and Drug Administrat [facility]. Performed At: 01 [employer] [address] [place] [id number] Kristopher Gr [facility] Ph:[phone] [facility] Toxicolo gy U Amphet/Met hamphet Negative 14 (01/15/23 2:08 PM) 01/15 N Interpretiv e Data: Test Cut-off Concentrati ons Amphetamine s/Methamphe tamines - 500 ng/mL These results are intented for medical treatment only, not employment or legal testing. This is not to be used for Therapeutic monitoring. [facility] Toxicolo [facility] U Aye Scrn Negative 6 (01/15/23 2:08 PM) 01/15 N Interpretiv e Data: Test Cut-off Concentrati ons Barbiturate s - 200 ng/mL These results are intented for medical treatment only, not employment or legal testing. This is not to be used for Therapeutic monitoring. [facility] Toxicolo [facility] U Benzodia Scrn Negative 1 (01/15/23 2:08 PM) 01/15 N Interpretiv e Data: Test Cut-off Concentrati ons Benzodiazep ine - 100 ng/mL These results are intented for medical treatment only, not employment or legal testing. This is not to be used for Therapeutic monitoring. [facility] Toxicolo gy U Cocaine Scrn Negative 3 (01/15/23 2:08 PM) 01/15 N Interpretiv e Data: Test Cut-off Concentrati ons Cocaine - 300 ng/mL These results are intented for medical treatment only, not employment or legal testing. This is not to be used for Therapeutic monitoring. [facility] Toxicolo gy U Methadone Scrn Negative 2 (01/15/23 2:08 PM) 01/15 N Interpretiv e Data: Test Cut-off Concentrati ons Methadone - 300 ng/mL These results are intented for medical treatment only, not employment or legal testing. This is not to be used for Therapeutic monitoring. [facility] Toxicolo gy U Opiate Scrn Negative 4 (01/15/23 2:08 PM) 01/15 N Interpretiv e Data: Test Cut-off Concentrati ons Opiate - 300 ng/mL These results are intented for medical treatment only, not employment or legal testing. This is not to be used for Therapeutic monitoring. [facility] Toxicolo gy U PCP Scrn Negative 5 (01/15/23 2:08 PM) 01/15 N Interpretiv e Data: Test Cut-off Concentrati ons Phencyclidi ne (PCP) - 25 ng/mL These results are intented for medical treatment only, not employment or legal testing. This is not to be used for Therapeutic monitoring. [facility] Toxicolo gy U Propoxyphe ne Negative 10 (01/15/23 2:08 PM) 01/15 N Interpretiv e Data: Test Cut-off Concentrati ons Propoxyphen e - 300 ng/mL These results are intented for medical treatment only, not employment or legal testing. This is not to be used for Therapeutic monitoring. [facility] Toxicolo gy U Cannab Scrn Negative 7 (01/15/23 2:08 PM) 01/15 N Interpretiv e Data: Test Cut-off Concentrati ons Cannabinoid s (THC) - 50 ng/mL These results are intented for medical treatment only, not employment or legal testing. This is not to be used for Therapeutic monitoring. [facility] Miscella ne[facility]outs Carbohydra te Def Transferri n.LC 1.6 % 01/15 H Result Comment: Normal <1.4 Inconclusiv e 1.4 - 1.6 Elevated >1.6 Clinical use only. Not specific for medico-lega l purposes. This test is not suitable for the evaluation of patients suspected of having congenital glycosylati on disorders. Performed At: [address] [id number] Kenneth Dhillon MD Ph:[phone] [facility] Chemistr y Bilirubin Total 0.40 mg/dL 0.20 - 1.20 01/15 N [facility] Chemist[facility] y Calcium 9.80 mg/dL 8.80 - 10.20 01/15 N [facility] Chemist[facility] y Chloride 104 mmol/L 97 - 107 01/15 N [facility] Chemist[facility] y CO2 29.0 mmol/L 22.0 - 30.0 01/15 N [facility] Chemist[facility] y Creatinine Level 0.70 mg/dL 0.50 - 1.10 01/15 N [facility] Chemist[facility] y Glucose Lvl 84 mg/dL 70 - 120 01/15 N Interpretiv e Data: According to the [place] [employer] consider the following when reviewing Fasting Glucose levels: Normal less than 100 mg/dL Prediabetes 100mg/dL to 125 mg/dL Diabetes 126 mg/dL or higher [facility] Potassium Lvl 4.10 mmol/L 3.70 - 4.90 01/15 N [facility] Chemist[facility] y Sodium 142.0 mmol/L 136.0 - 145.0 01/15 N [facility] Chemistr y AGAP 13 mmol/L 10 - 20 01/15 N [facility] Chemist[facility] y BUN 8.0 mg/dL 10.0 - 20.0 01/15 L [facility] Chemist[facility] BUN/Creat Ratio 11 7 - 25 01/15 N [facility] Chemist[facility] ALT 16 U/L 13 - 69 01/15 N [facility] Chemist[facility] y Albumin 3.50 g/dL 3.70 - 5.00 01/15 L [facility] Alk Phos 68 U/L 37 - 121 01/15 N [facility] Chemist[facility] AST 27 U/L 10 - 59 01/15 N [facility] Chemist[facility] y Protein Total 6.2 mg/dL 6.2 - 8.3 01/15 N [facility] Chemist[facility] A/G Ratio 1 meq/L 01/15 [facility]outs Comment 2:.LC COMMENT 01/15 Result Comment: A Carbohydrat e Deficient Transferrin (CDT) result between 1.4 and 1.6% is considered to be inconclusiv e for chronic alcohol use during the previous two weeks. It is recommended to repeat test with a new sample collected three to four weeks later. Performed At: [address] [id number] Kenneth Dhillon MD Ph:[phone] [facility] Vital Signs Combined list of inpatient and outpatient Vital Signs from Department of Defense and Veterans Affairs, ranging from 12 months to all on record, depending upon the facility. Vital Sign Value Date Comments Source No data available for this section [facility] SYSTOLIC BLOOD PRESSURE 120 08/20/20 24 11:41:19 [facility] [place] DIASTOLIC BLOOD PRESSURE 79 024 11:41:19 [facility] [place] [facility] PULSE OXIMETRY 95 08/20/2024 11:41:19 [facility] WEIGHT 222 08/20/2024 11:41:19 [facility] BMI 30kg/m2 08/20/2024 11:41:19 [facility] [place] PULSE 91 08/20/2024 11:41:19 [facility] [place] RESPIRATION 20 08/20/2024 11:41:19 [facility] [place] [facility] Encounters Combined list of: 1) Encounters from Department of Veterans Affairs facilities going back up to thelast 18 months. 2) Encounters from the Department of Defense facilities going back up to 280 months. Location Location Details Encounter Type Encounter Number Reason For Visit Attending Provider ADM Date DC Date Status Disposition Source [facility] Team A) TELE CONSULT [id number] Notes Entered by: BEATA WILSON 23 Jul 2018 1527 ------- ------- ------- ------- -- Con-Lv Request NENA LUNA 07/23 Referred for Appointment [facility] Team A) [address] [place] [address]([facility] Team [facility]) OUTPATIENT [id number] VAB update/ appoint ment/IR DC ROMERO 05/27 Released w/o Limitations [facility] Team A) [facility] OUTPATIENT [id number] POSITIV E ANKITA CASTRO 09/01 Released w/o Limitations [facility]( [facility] Case Managemen t) TELE CONSULT [id number] Notes Entered by: SCOTT MCGHEE 02 Jul 2022 1326 ------- ------- ------- ------- -- SCOTT CASTRO 07/02 Other Not Elsewhere Classified [facility]) [facility] Outpatient Encounter [id number] 05/23 [facility] Encounter [id number] 06/04 [facility] PSYTX W PT 45 MINUTES [id number] Diagnos is: ICD-10- CM F43.10 Post-tr aumatic stress disorde r, unspeci fied
GREG GIRON N 06/05 [facility] En[facility] [id number] 06/05 [facility] SELF-HELP/ PEER SVC PER 15MIN [id number] Diagnos is: ICD-10- CM F10.20 Alcohol depende nce, uncompl icated< br/> ARLEN YAO 06/05 [facility] PT EVAL MOD COMPLEX 30 MIN [id number] Diagnos is: ICD-10- CM G89.21 Chronic pain due to trauma< br/> FERNANDO RAM 06/06 [facility] HLTH BHV ASSMT/REAS SESSMENT [id number] Diagnos is: ICD-10- CM G89.21 Chronic pain due to trauma< br/> GREG NGUYEN 06/06 [facility] PSYTX W PT 60 MINUTES [id number] Diagnos is: ICD-10- CM F43.10 Post-tr aumatic stress disorde r, unspeci fied
GREG GIRON N 06/11 [facility] MTMS BY PHARM ADDL 15 MIN [id number] Diagnos is: ICD-10- CM F43.10 Post-tr aumatic stress disorde r, unspeci fied
MARIANELA COY 06/13 [facility] En[facility] [id number] 06/20 [facility] Encounter [id number] 06/24 [facility] OFFICE O/P EST HI 40-54 MIN [id number] Diagnos is: ICD-10- CM G89.21 Chronic pain due to trauma< br/> KUPFERSCHM ID,PHILIPPE B 06/25 [facility] PSYTX W PT 60 MINUTES [id number] Diagnos is: ICD-10- CM F43.10 Post-tr aumatic stress disorde r, unspeci fied
GREG GIRON 06/25 [facility] En[facility] [id number] 06/28 [facility] Encounter [id number] KUPFERSCHM ID,PHILIPPE B 07/01 [facility] OFFICE O/P EST MOD 30-39 MIN [id number] Diagnos is: ICD-10- CM G89.21 Chronic pain due to trauma< br/> KUPFERSCHM ID,PHILIPPE B 07/01 [facility] Out[facility] En[facility] [id number] ULYSSES FERNANDEZ,PHILIPPE B 07/01 [facility] Out[facility] Encounter [id number] 07/01 [facility] PSYTX W PT 60 MINUTES [id number] Diagnos is: ICD-10- CM F43.10 Post-tr aumatic stress disorde r, unspeci fied
GREG GIRON N 07/09 [facility] PSYTX W PT 60 MINUTES [id number] Diagnos is: ICD-10- CM F43.10 Post-tr aumatic stress disorde r, unspeci fied
GREG GIRON N 07/16 [facility] [id number] 07/16 [facility] Out[facility] Encounter [id number] 07/17 [facility] Encounter [id number] FERNANDO RAM 07/17 [facility] Encounter [id number] FERNANDO RAM 07/17 [facility] Encounter [id number] 07/23 [facility] Encounter [id number] 07/24 [facility] OFFICE O/P EST MOD 30-39 MIN [id number] Diagnos is: ICD-10- CM G89.21 Chronic pain due to trauma< br/> KUPFERSCHM IDPHILIPPE B 07/25 [facility] En[facility] [id number] 07/26 [facility] Encounter [id number] 07/30 [facility] Encounter [id number] 07/30 [facility] SELF-MGMT EDUC & TRA[place] 1 [place] [id number] Diagnos is: ICD-10- CM G89.21 Chronic pain due to trauma< br/> FERNANDO RAM 07/31 [facility] SELF-MGMT EDUC/TRAIN 2-4 [place] [id number] Diagnos is: ICD-10- CM G89.21 Chronic pain due to trauma< br/> GREG NGUYEN 07/31 [facility] Outpatient Encounter [id number] Diagnos is: ICD-10- CM F43.10 Post-tr aumatic stress disorde r, unspeci fied
JUAN PABLO SCHERER 08/06 [facility] En[facility] [id number] 08/06 [facility] Out[facility] Encounter [id number] 08/07 [facility] Out[facility] Encounter [id number] 08/13 [facility] SELF-MGMT EDUC/TRAIN 2-4 [place] [id number] Diagnos is: ICD-10- CM G89.21 Chronic pain due to trauma< br/> GREG NGUYEN 08/14 [facility] Out[facility] Encounter [id number] Diagnos is: ICD-10- CM F43.10 Post-tr aumatic stress disorde r, unspeci fied
SINTIA ABRAHAM 08/15 [facility] En[facility] [id number] 08/16 [facility] Encounter [id number] 08/23 [facility] Out[facility] Encounter [id number] 08/26 [facility] MTMS BY PHARM ADDL 15 MIN [id number] Diagnos is: ICD-10- CM F43.10 Post-tr aumatic stress disorde r, unspeci fied
MARIANELA COY 08/26 [facility] Out[facility] [id number] 08/27 [facility] Out[facility] Encounter [id number] 08/28 [facility] CASE MANAGEMENT [id number] Diagnos is: ICD-10- CM G89.21 Chronic pain due to trauma< br/> JUAN PABLO SCHERER 08/30 [facility] PSYTX W PT 60 MINUTES [id number] Diagnos is: ICD-10- CM F43.10 Post-tr aumatic stress disorde r, unspeci fied
GREG GIRON 09/03 [facility] En[facility] [id number] 09/03 [facility] Out[facility] Encounter [id number] 09/04 [facility] Encounter [id number] 09[facility]10 [facility] Out[facility] Encounter [id number] 09/10 [facility] Encounter [id number] 09/11 [facility] OFFICE O/P EST HI 40-54 MIN [id number] Diagnos is: ICD-10- CM G89.21 Chronic pain due to trauma< br/> KUPFERSCHM ID,PHILIPPE B 09/12 [facility] CASE MANAGEMENT [id number] Diagnos is: ICD-10- CM F43.10 Post-tr aumatic stress disorde r, unspeci fied
JUAN PABLO SCHERER 09/12 [facility] En[facility] [id number] 09/17 [facility] [facility] Encounter [id number] 09/18 [facility] PSYTX W PT 60 MINUTES [id number] Diagnos is: ICD-10- CM F43.10 Post-tr aumatic stress disorde r, unspeci fied
GREG GIRON N 09/24 [facility] PSYTX W PT 60 MINUTES [id number] Diagnos is: ICD-10- CM F43.10 Post-tr aumatic stress disorde r, unspeci fied
GREG GIRON N 10/01 [facility] Out[facility] Encounter [id number] 11/28 /2023 [facility] CASE MANAGEMENT [id number] Diagnos is: ICD-10- CM F10.20 Alcohol depende nce, uncompl icated< br/> JUAN PABLO SCHERER 10/21 [facility] Out[facility] Encounter [id number] 10/21 [facility] Out[facility] Encounter [id number] 10/23 [facility] OFFICE O/P EST HI 40-54 MIN [id number] Diagnos is: ICD-10- CM G89.21 Chronic pain due to trauma< br/> KUPFERSCHM ID,PHILIPPE B 10/24 [facility] Out[facility] Encounter [id number] 10/25 [facility] PSYTX W PT 45 MINUTES [id number] Diagnos is: ICD-10- CM F10.20 Alcohol depende nce, uncompl icated< br/> GREG GIRON 10/29 [facility] HC PRO PHONE CALL 5-10 MIN [id number] Diagnos is: ICD-10- CM F10.20 Alcohol depende nce, uncompl icated< br/> JUAN PABLO SCHERER 10/30 [facility] Out[facility] Encounter [id number] 11/12 [facility] OFFICE O/P NEW LOW 30 MIN [id number] Diagnos is: ICD-10- CM M54.2 Cervica lgia
Fanny BARRERA MEDARDO Maile 11/13 [facility] MTMS BY PHARM ADDL 15 MIN [id number] Diagnos is: ICD-10- CM F43.10 Post-tr aumatic stress disorde r, unspeci fied
MARIANELA COY 11/13 [facility] Out[facility] Encounter [id number] 11/14 [facility] OFFICE O/P EST HI 40 MIN [id number] Diagnos is: ICD-10- CM M54.2 Cervica lgia
CURTISSCHLopez IDPHILIPPE B 11/15 [facility] En[facility] [id number] 11/18 [facility] Out[facility] Encounter [id number] 11/20 [facility] Out[facility]counter [id number] 11/22 [facility] SELF-HELP/ PEER SVC PER 15MIN [id number] Diagnos is: ICD-10- CM F10.20 Alcohol depende nce, uncompl icated< br/> ARLEN YAO Esa 11/26 [facility] 0310C-AF- C-66th [employer] Between Visit [id number] 11/27 Discharge Disposition: Home or Self Care 0310C-A F-C-66t h [employer] [facility] Outpatient Encounter [id number] 11/27 [facility] 0310M-AF- C-66th [employer] Outpatient [id number] Encount er for other adminis trative examina xiomara BROUSSARD 11/27 Discharge Disposition: Home or Self Care 0310M-A F-C-66t h [employer] [facility] Outpatient Encounter [id number] 12/03 [facility] 0C-AF- C-66th [employer] Between Visit [id number] 12/06 Discharge Disposition: Home or Self Care 0310C-A F-C-66t h [employer] [facility] Outpatient Encounter [id number] 12/17 [facility] Outpatient [facility]counter [id number] 12/17 [facility] OFFICE O/P EST HI 40 MIN [id number] Diagnos is: ICD-10- CM G89.21 Chronic pain due to trauma< br/> EDWINROGERPOLO FERNANDEZPHILIPPE 12/18 [facility] Outpatient Encounter [id number] 2 01/01 [facility] Out[facility] Encounter [id number] 01/09 [facility] Out[facility] Encounter [id number] 01/12 [facility] Out[facility]counter [id number] 01/14 [facility] QNHP OL DIG ASSMT&MGMT 11-20 [id number] Diagnos is: ICD-10- CM G89.21 Chronic pain due to trauma< br/> TEP,CHANDRIKAALON SCHMITZ 01/15 [facility] OFFICE O/P EST HI 40 MIN [id number] Diagnos is: ICD-10- CM M54.2 Cervica lgia
KUPFERSCHM ID,PHILIPPE B 01/16 [facility] 309M- C-66 [facility] Outpatient [id number] Other chronic pain,En counter for other adminis trative examina tions AVINASH GEE 01/22 Discharge Disposition: Home or Self Care 0M-A -C-66t h [employer] Outpatient Encounter [id number] 01/30 [facility] Out[facility] Encounter [id number] 02/16 [facility] OFFICE O/P EST HI 40 MIN [id number] Diagnos is: ICD-10- CM M25.519 Pain in unspeci fied shoulde r
KUPFERSCHM ID,PHILIPPE B 02/17 [facility] En[facility] [id number] 03/31 [facility] Out[facility] Encounter [id number] 03/31 [facility] Out[facility] Encounter [id number] Diagnos is: ICD-10- CM G89.21 Chronic pain due to trauma< br/> SAVANNAH BAZZI 04/01 [facility] Out[facility] Encounter [id number] 04/09 [facility] OFFICE O/P EST HI 40 MIN [id number] Diagnos is: ICD-10- CM M54.2 Cervica lgia
KUPFERSCHM ID,PHILIPPE B 04/10 [facility] Encounter [id number] 04/10 [facility] Out[facility] Encounter [id number] 04/14 [facility] Out[facility] Encounter [id number] 05/22 [facility] OFFICE O/P EST HI 40 MIN [id number] Diagnos is: ICD-10- CM G89.21 Chronic pain due to trauma< br/> KUPFERSCHM ID,PHILIPPE B 05/25 [facility] HLTH BHV IVNTJ INDIV 30 [id number] Diagnos is: ICD-10- CM F10.20 Alcohol depende nce, uncompl icated< br/> JUAN PABLO SCHERER 06/03 [facility] Out[facility] Encounter [id number] 06/08 [facility] Out[facility] Encounter [id number] 06/16 [facility] Out[facility] Encounter [id number]/23 [facility] Out[facility] Encounter [id number]/25 [facility] SELF-HELP/ PEER SVC PER 15MIN [id number] Diagnos is: ICD-10- CM F10.20 Alcohol depende nce, uncompl icated< br/> ARLEN YAO 06/25 [facility] HC PRO PHONE CALL 5-10 MIN [id number] Diagnos is: ICD-10- CM Z71.89 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
JAVI PERRY 08/20 [facility] Out[facility] Encounter [id number] 08/21 [facility] HLTH BHV IVNTJ INDIV 1ST 30 [id number] Diagnos is: ICD-10- CM F10.20 Alcohol depende nce, uncompl icated< br/> JUAN PABLO SCHERER 08/26 [facility] Out[facility] Encounter [id number] 08/28 [facility] Out[facility] Encounter [id number] 09/17 [facility] Out[facility] Encounter [id number] 09/25 [facility] Out[facility]counter [id number] 09/25 [facility] Out[facility] Encounter [id number] 09/26 [facility] Out[facility] Encounter [id number] 09/28 [facility] Out[facility] Encounter [id number] 10/05 [facility] Out[facility] Encounter [id number] 10/07 [facility] OFFICE O/P EST HI 40 MIN [id number] 1. Diagnos is: ICD-10- CM M25.561 Pain in right knee
KUPFERSCHM ID,PHILIPPE B 10/09 [facility] Out[facility] Encounter [id number] 1.10/09 [facility] HC PRO PHONE CALL 11-20 MIN [id number] Diagnos is: ICD-10- CM J44.9 Chronic obstruc tive pulmona ry disease , unspeci fied
JARMOLOWIC Z,SON 10/09 [facility] PSYTX W PT 45 MINUTES [id number] Diagnos is: ICD-10- CM F10.20 Alcohol depende nce, uncompl icated< br/> FANNIE MORA 10/27 [facility] Out[facility] Encounter [id number] FANNIE MORA 10/27 [facility] OFFICE O/P EST LOW 20 MIN [id number] Diagnos is: ICD-10- CM G89.21 Chronic pain due to trauma< br/> DOUG MOSHER ISTOPHER M 10/28 [facility] Outpatient [facility]counter [id number] 11/16 [facility] OFFICE O/P EST HI 40 MIN [id number] Diagnos is: ICD-10- CM M54.2 Cervica lgia
KUPFERSCHM ID,PHILIPPE B 11/17 [facility] Outpatient Encounter [id number] 11/18 [facility] Outpatient Encounter [id number] 11/18 [facility] Procedures Combined list of: 1) Procedures from Department of Veterans Affairs facilities going back up to thelast 18 months, not all [place] non-surgical procedures are included; 2) All procedures from the Department of Defense facilities. Procedure Procedure Type Code Date Perfomer Comments Sourc e No data available for this section [facility] TYMPANOMETRY (IMPEDANCE TESTING) 019 [facility] INTERPRETATION OR EXPLANATION OF RESULTS OF PSYCHIATRIC, OTH MEDICAL EXAMS/PROCEDURES, OR OTH ACCUMULATED DATA TO FAMILY OR OTH RESPONSIBLE PERSONS,OR ADVISING THEM HOW TO ASSIST PATIENT [facility] CASE MANAGEMENT, EACH 15 MINUTES [facility] PSYCHIATRIC DIAGNOSTIC EVALUATION 021 [facility] UNLISTED PSYCHIATRIC SERVICE OR PROCEDURE [facility] RANGE OF MOTION MEASUREMENTS AND REPORT (SEPARATE PROCEDURE); EACH EXTREMITY (EXCLUDING HAND) OR EACH TRUNK SECTION (SPINE) [facility] SKIN TEST; TUBERCULOSIS, INTRADERMAL [facility] BRONCHODILATION RESPONSIVEN[place], [place] [address], PRE- AND POST-BRONCHODILATO R ADMINISTRATION [facility] EDUCATIONAL SUPPLIES, SUCH BOOKS, TAPES, AND PAMPHLETS, FOR THE PATIENT'S EDUCATION AT COST TO PHYSICIAN OR OTHER QUALIFIED HEALTH SEWER LINE PHOTO INSPECTOR [facility] SKIN TEST; TUBERCULOSIS, INTRADERMAL [facility] MUSCLE TESTING, MANUAL (SEPARATE PROCEDURE) WITH REPORT; EXTREMITY (EXCLUDING HAND) OR TRUNK [facility] ORTHOTIC(S) FITTING AND TRAINING, UPPER EXTREMITY(IES), LOWER EXTREMITY(IES), AND/OR TRUNK, EACH 15 MINUTES [facility] THERAPEUTIC PROCEDURE, 1 OR MORE AREAS, EACH 15 MINUTES; THERAPEUTIC EXERCISES TO DEVELOP STRENGTH AND ENDURANCE, RANGE OF MOTION AND FLEXIBILITY [facility] SPLINT SUPPLIES, MISCELLANEOUS (INCLUDES THERMOPLASTICS, STRAPPING, FASTENERS, PADDING AND OTHER SUPPLIES) [facility] RANGE OF MOTION MEASUREMENTS AND REPORT (SEPARATE PROCEDURE); EACH EXTREMITY (EXCLUDING HAND) OR EACH TRUNK SECTION (SPINE) [facility] Tympanometry Tympanometry 84679 ANKITA RODRIGUEZ [facility] Comprehensive Audiometry Comprehensive Audiometry 09739 ANKITA RODRIGUEZ [facility] Health And Behavior Intervention, Each Additional 15 Minutes Individual Health And Behavior Intervention, Each Additional 15 Minutes Individual 73165 ANKITA RODRIGUEZ 15 min (INDV) marriage and family counselor on communication strategies in noise & use of HP's in noise (occupational/r ecreational). Annual HCP review completed today [facility] Psychiatric Diagnostic Evaluation Review of Records and Reports Psychiatric Diagnostic Evaluation Review of Records and Reports 80724 TIFF CHUNG [facility] Psychiatric Diagnostic Evaluation Comprehensive Examination Psychiatric Diagnostic Evaluation Comprehensive Examination 53364 TIFF CHUNG [facility] Case Management, each 15 minutes SCOTT BOBO [facility] Psych Ther In-Patient Indiv Interactive Approx 60 Min Psych Ther In-Patient Indiv Interactive Approx 60 Min 72340 DOMI MENDOSA [facility] Psychometric Emotional / Behavioral A e ment Psychometric Emotional / Behavioral Assessment 73483 DOMI MENDOSA [facility] Psychotherapy Indiv Interactive Approx 30 Minutes Psychotherapy Indiv Interactive Approx 30 Minutes 02657 DOMI MENDOSA [facility] Social History Combined list of available smoking, tobacco, and other social history from Department of Defense and Veterans Affairs facilities. Social History Type Response Date Comment Sourc e Tobacco smoking status NHIS [facility]-TOBACCO USER EVERY DAY 08/20/2024 [facility] History of tobacco use [place]-TOBACCO USE WI 30 MIN OF WAKEUP [facility] History [facility] tobacco use HI-TOBACCO USER EVERY DAY 08[facility]15[facility] Male 11/22/2022 Ambulatory Pha rmacy Sexual Orientation Ambula tory Pharmacy Gender identity Ambulator y Pharmacy This section is an empty social history section. [facility] Assessment and Plan Combined list of future care activities from Department of Defense and Veterans Affairs facilities (e.g., assessment and plan notes, appointments, orders, and referrals). Additional future care activities may be listed in the Plan of Care section. Result Assessment and Plan Date Source Assessment and Plan Extracted from:Title : [facility] Therapist OP Follow Up Note Author: DOMI MENDOSA, [facility] Date: 07/10/23 Pt with?ongoing treatment needs to work?toward maintenance of AUD. He appears to be well connected with resources at the [place]. No safety concerns. ? Alcohol use, unspecified, uncomplicated Continue to follow in [facility] for monthly check-in as he utilizes addiction resources in the community. Prognosis: Guarded Benefits, Risks, Alternatives Discussed: Yes Treatment Plan: Referral to individual, family or group therapy Number of Visits Expected: 9-12 Target Symptoms: Health issues, Substance use Goals of Treatment: Improve overall functioning Evaluation Type: Psychiatric diagnostic evaluation ? Objectives of Treatment #1: Maintain sobriety Goals of Treatment #1: Improve overall functioning Interventions of Treatment #1: Re-admit to IOP Objective #1 Goal Status: Initial Objective #1 Start Date: 05/06/23 ? ? ? Treatment Planning Requirements: 1) Developed treatment plan collaboratively with patient, with agreement on plan of care and goals, 2) Patient agrees to attend appointments, engage in treatment, discuss any concerns in order to meet treatment goals 11/20/2024 Ambulatory Pharmacy Plan of Care List of future care activities from Department of Veterans Affairs facilities. Additional future care activities may be listed in the Assessment and Plan section. Date/Time Care Activity Care Activity Detail Facili ty 11/20/2024 AMBULATORY - NONE [facility] 11/26/2024 AMBULATORY - PSYCHIATRY [facility]02/2024 AMBULAT[facility] - MEDICINE AMBULATORY - MEDICI [place] [facility] [place] [facility] 12/03/2024 AMBULATORY - PSYCHIATRY AMBULATORY - PSYC [facility] [place] 12/10/2024 AMBULATORY - PSYCHIATRY AMBULATORY - PSYC HIATRY [facility] [place] [facility] 01/04/2025 AMBULATORY - MEDICINE AMBULATORY - MEDICI NE [facility] [place] 01/15/2025 AMBULATORY - MEDICINE AMBULATORY - MEDICI NE [facility] [place] 10/27/2024 Consult Order [facility] Cons Bond Under[facility]'s [facility] Functional Status Combined list of recent functional and cognitive assessments recorded at Department of Defense and Veterans Affairs (VA).VA Functional [place] Measurement (FIM) Scale: 1 = Total Assistance (Subject = 0% +), 2 = Maximal Assistance (Subject = 25% +), 3 = Moderate Assistance (Subject = 50% +), 4 = Minimal Assistance (Subject = 75% +), 5 = Supervision, 6 = Modified [place] (Device), 7 = Complete [place] (Timely, Safely). Assessment Date/Time Source Assessment Type Assessment Skill Assessment Score Assessment Details FUNCTIONAL 07/17/23 Home Dietary Supplements Captured No
--- OUTSIDE RECORDS SUMMARY | 2024-11-20 10:02 | XMS_ITS ---
Author Name [facility] [place] [facility] [place] Address [address] [place] [address] Care Team Providers Care Director Prospect Name Role Phone JAVI TYLER Primary Care Provider Unav ailable Insurance Providers: All historical and current Section Date Range: From patient's date of to the date document was created. This section includes the names of all active insurance providers for the patient. Insurance Provider Type of Coverage Plan Name Start of Policy Coverage End of Policy Coverage Group Number Member ID Insurance Provider's Telephone Number Policy Travis's Name Patient's Relationship to Policy Travis [facility] 2017 [facility] NON-B ILL 2024 [facility] [id number] JAVI MURGUIA PATIENT Selected Encounter This section includes the information on record at [place] for the Encounter. Date/Time Encounter Type Encounter Description Reason Pro vider Source Nov 22, 2023 11:57 PM Outpatient Encounter ADMIN PAT ACTIVTIES (MASNONCT) IHE Encounter Template Text not used by [place] Plan of Treatment: Future Appointments (+ 6 months) and Future Tests (+/- 45 days) The Plan of Treatment section includes future care activities for the patient from all [facility] treatment[facility]. This section includes future appointments and future orders which are active, pending or scheduled. Future Appointments This section includes appointments that were scheduled to occur 6 months from the date of the Encounter, up to a maximum of 20 appointments. The data comes from all [place] treatment facilities. Appointment Date/Time Appointment Type Appointme nt Facility Name Dec 03, 2023 01:00 PM [facility] Dec 18, 2023 11:00 AM AM[place]UL[facility] [place]ICINE [place] [facility] Feb 18, 2024 02:45 PM [facility] [place] [place] [facility] April 10, 2024 11:15 AM AMBULATORY - MEDICINE [facility] Lab Results: +/- 30 days of the encounter This section includes the Chemistry and Hematology Lab Results on record with [place] for the patient. Radiology Reports and Pathology Reports are provided separately, in subsequent sections. Lab Results This section contains the Chemistry/Hematology Results that were resulted 30 days before or 30 daysafter the date of the Encounter. Date/Time Source Result Type Result - Unit Interpretation Reference Range Comment Nov 13, 2023 12:22 PM [facility] ALBUMIN Specimen Type: SERUM No comment entered. Ordering Provider: GIORGI BARRERA Report Released Date/Time: Oct 29, 2023 02:42 PM Reporting Lab: [address] [address] Performing Lab: [address] [address] ALBUMIN 3.1 g/dL L 3.5-5.0 Nov 13, 2023 12:22 PM [facility] PT & INR (PROTIME) Specimen Type: PLASMA No comment entered. Ordering Provider: GIORGI BARRERA Report Released Date/Time: Oct 29, 2023 02:42 PM Reporting Lab: [address] [address] Performing Lab: [address] [address] INR 1.1 PROTIME 12.8 s 10.0-13.1 Nov 13, 2023 12:21 PM [facility] FOLATE Specimen Type: SERUM No comment entered. Ordering Provider: GIORGI BARRERA Report Released Date/Time: Oct 29, 2023 02:42 PM Reporting Lab: [facility] [address] [facility] [address] Performing Lab: [facility] [address] [facility] [address] FOLATE 7.37 ng/mL >5.2 Nov 13, 2023 12:21 PM [facility] THYROID T4 FREE(FT4) Specimen Type: SERUM No comment entered. Ordering Provider: GIORGI BARRERA Report Released Date/Time: Oct 29, 2023 02:42 PM Reporting Lab: [facility] [address] [facility] [address] Performing Lab: [facility] [address] [facility] [address] THYROID T4 FREE(FT4) 0.87 ng/dL 0.6-1.6 Nov 13, 2023 12:21 PM [facility] HEPATITIS B CORE (Total) Ab Specimen Type: SERUM Comment: This test detects both IgG and IgM antibodies. A Reactive result ( Positive prior to 08/24/13) may indicate either current or previous hepatitis B infection. Antibodies to Hepatitis B Core may be the only marker of recent hepatitis B infection during the window period when Hepatitis B surface antigen has disappeared and Hepatitis B surface antibodies are not yet detectable. Ordering Provider: GIORGI BARRERA Report Released Date/Time: Oct 29, 2023 02:42 PM Reporting Lab: [facility] [address] [facility] [address] Performing Lab: [address] [address] HEPATITIS B CORE (Total) Ab Non Reactive Non Reactive Nov 13, 2023 12:21 PM [facility] SYPHILIS ABS W/RFLX Specimen Type: SERUM Comment: No laboratory evidence of syphilis infection. If recent exposure is suspected, re-draw sample in 2-4 weeks and repeat algorithm. Testing performed by T. pallidum specific immunoassay. Ordering Provider: GIORGI BARRERA Report Released Date/Time: Oct 29, 2023 02:42 PM Reporting Lab: [facility] [address] [facility] [address] Performing Lab: [facility] [address] [facility] [address] SYPHILIS ABS W/RFLX Non Reactive Non Reactive Nov 13, 2023 12:21 PM [facility] RORY SCREEN/TITER Specimen Type: SERUM No comment entered. Ordering Provider: GIORGI BARRERA Report Released Date/Time: Oct 29, 2023 02:42 PM Reporting Lab: [facility] [address] [facility] [address] Performing Lab: [facility] [address] [facility] [address] RORY SCREEN NEG Nov 13, 2023 12:21 PM [facility] HEPATITIS C ANTIBODY (HCV)-ARC Specimen Type: SERUM Comment: Hep C Ab: No HCV antibody detected. If recent infection is suspected or other evidence suggests HCV infection, consider HCV nucleic acid testing Ordering Provider: GIORGI BARRERA Report Released Date/Time: Oct 29, 2023 02:42 PM Reporting Lab: [facility] [address] [facility] [address] Performing Lab: [facility] [address] [facility] [address] HEPATITIS C ANTIBODY NON-REACTIVE NON-REACTIV E Nov 13, 2023 12:21 PM [facility] VITAMIN B12 Specimen Type: SERUM No comment entered. Ordering Provider: GIORGI BARRERA Report Released Date/Time: Oct 29, 2023 02:42 PM Reporting Lab: [facility] [address] [facility] [address] Performing Lab: [facility] [address] [address] VITAMIN B12 727 pg/mL 200-900 Nov 13, 2023 12:21 PM [facility] VITAMIN D (25-OH) Specimen Type: SERUM No comment entered. Ordering Provider: GIORGI BARRERA Report Released Date/Time: Oct 29, 2023 02:42 PM Reporting Lab: [facility] [address] [facility] [address] Performing Lab: [facility] [address] [address] VITAMIN D (25-OH) 21 ng/mL 20-50 Nov 13, 2023 12:21 PM [facility] MAGNESIUM Specimen Type: SERUM No comment entered. Ordering Provider: GIORGI BARRERA Report Released Date/Time: Oct 29, 2023 02:42 PM Reporting Lab: [address] [address] Performing Lab: [address] [address] MAGNESIUM 1.9 mg/dL 1.6-2.6 Nov 13, 2023 12:21 PM [facility] TSH Specimen Type: SERUM No comment entered. Ordering Provider: GIORGI BARRERA Report Released Date/Time: Oct 29, 2023 02:42 PM Reporting Lab: [address] [address] Performing Lab: [address] [address] TSH 2.83 u[IU]/mL 0.35-5.00 Nov 13, 2023 12:21 PM [facility] PSA Specimen Type: SERUM No comment entered. Ordering Provider: GIORGI BARRERA Report Released Date/Time: Oct 29, 2023 02:42 PM Reporting Lab: [address] [address] Performing Lab: [facility] [address] [address] PSA 0.55 ng/mL 0.00-4.00 Nov 13, 2023 12:21 PM [facility] FERRITIN Specimen Type: SERUM No comment entered. Ordering Provider: GIORGI BARRERA Report Released Date/Time: Oct 29, 2023 02:42 PM Reporting Lab: [address] [address] Performing Lab: [address] [address] FERRITIN 427 ng/mL H 20-300 Nov 13, 2023 12:21 PM [facility] LIVER FUNCTION Specimen Type: SERUM No comment entered. Ordering Provider: GIORGI BARRERA Report Released Date/Time: Oct 29, 2023 02:42 PM Reporting Lab: [address] [address] Performing Lab: [address] [address] PROTEIN,TOTAL 6.7 g/dL 6.0-8.3 ALBUMIN 3.1 g/dL L 3.5-5.0 ALKALINE PHOSPHATASE 85 U/L 40-150 AST 37 U/L H 5-34 ALT 26 U/L BILIRUBIN, TOTAL 0.4 mg/dL 0.2-1.2 Nov 13, 2023 12:21 PM [facility] CBC AND DIFF (AUTO) Specimen Type: BLOOD No comment entered. Ordering Provider: GIORGI BARRERA Report Released Date/Time: Oct 29, 2023 02:42 PM Reporting Lab: [address] [address] Performing Lab: [address] [address] WBC 7.73 10*3/uL 4.50-11.00 RBC 4.05 10*6/uL L 4.23-5.66 HGB 12.8 g/dL 12.8-17 HCT 39.1 L 39.2-50.4 MCV 96.5 fL 82-99 MCHC 32.7 g/dL 30.8-35.1 PLT 439 10*3/uL H 140-360 RDW-CV 13.2 12.0-16.0 [place], Abs 0.82 10*3/uL 0.30-1.10 MCH 31.6 pg 26.2-32.6 Neut % 66.2 43.7-75.8 Lymph % 17.2 14.0-42.3 [place] % 10.6 5.1-13.7 Eos % 4.9 0.4-6.8 Baso % 0.5 0.1-2.0 Neut, Abs 5.11 10*3/uL 2.20-7.60 Lymph, Abs 1.33 10*3/uL 1.00-3.20 Eos, Abs 0.38 10*3/uL 0.03-0.44 Baso, Abs 0.04 10*3/uL 0.01-0.13 Immature Gran % 0.6 0.0-0.7 Immature Gran, Abs 0.05 10*3/uL 0.00-0.06 Nov 13, 2023 12:21 PM [facility] BASIC METABOLIC PANEL (non-fasting) Specimen Type: SERUM No comment entered. Ordering Provider: GIORGI BARRERA Report Released Date/Time: Oct 29, 2023 02:42 PM Reporting Lab: [address] [address] Performing Lab: [address] [address] UREA NITROGEN 8 mg/dL 7-25 GLUCOSE 81 mg/dL 65-100 SODIUM 139 mmol/L 135-145 POTASSIUM 3.9 mmol/L 3.5-5.0 CHLORIDE 101 mmol/L 100-110 CO2 27 meq/L 20-30 CREATININE, Serum 0.85 mg/dL 0.50-1.40 eGFR(CKD-EPI 2020) >90 mL/min >60 Nov 13, 2023 12:21 PM [facility] IRON & TIBC PANEL Specimen Type: SERUM No comment entered. Ordering Provider: GIORGI BARRERA Report Released Date/Time: Oct 29, 2023 02:42 PM Reporting Lab: [address] [address] Performing Lab: [address] [place] [address] TIBC 249 ug/dL 204-475 IRON 54 ug/dL 40-160 Transferrin Saturation 21.6 20.0-50.0 Nov 13, 2023 12:21 PM [facility] ALBUMIN Specimen Type: SERUM No comment entered. Ordering Provider: GIORGI BARRERA J Report Released Date/Time: Oct 29, 2023 02:42 PM Reporting Lab: [facility] [place] [facility] [address] [facility] [address] Performing Lab: [facility] [place] [address] [address] ALBUMIN 3.1 g/dL L 3.5-5.0 Nov 13, 2023 12:21 PM [facility] GAMMA-GTP Specimen Type: SERUM No comment entered. Ordering Provider: GIORGI BARRERA J Report Released Date/Time: Oct 29, 2023 02:42 PM Reporting Lab: [facility] [place] [address] [address] Performing Lab: [facility] [address] [address] GAMMA-GTP 81 U/L H 10-65 Nov 13, 2023 12:21 PM [facility] PROTEIN,TOTAL Specimen Type: SERUM No comment entered. Ordering Provider: GIORGI BARRERA Report Released Date/Time: Oct 29, 2023 02:42 PM Reporting Lab: [facility] [place] [address] [address] Performing [facility]: [facility] [address] [address] PROTEIN,TOTAL 6.7 g/dL 6.0-8.3 Nov 13, 2023 12:21 PM [facility] ALKALINE PHOSPHATASE Specimen Type: SERUM No comment entered. Ordering Provider: GIORGI BARRERA Report Released Date/Time: Oct 29, 2023 02:42 PM Reporting Lab: [facility] [address] [address] Performing Lab: [place] [facility] [address] [facility] [address] ALKALINE PHOSPHATASE 85 U/L 40-150 Nov 13, 2023 12:21 PM [place] [facility] RHEUMATOID FACTOR Specimen Type: SERUM No comment entered. Ordering Provider: GIORGI BARRERA Report Released Date/Time: Nov 13, 2023 12:08 PM Reporting Lab: [place] [facility] [address] [facility] [address] Performing Lab: [place] [facility] [address] [facility] [address] RHEUMATOID FACTOR 16 H 0-15 Social History: Smoking Status (Most current) and Tobacco Use (All prior to encounter date) This section includes the most current, and the historical, smoking and tobacco- related health factors from the [place] facility where the Encounter took place. Current Smoking Status This section includes the most current smoking, or tobacco-related health factor, from the [place] facility where the Encounter took place. Date/Time Current Smoking Status Comment Katty ity Aug 15, 2023 04:34 PM VA-TOBACCO USER EVERY DAY [facility] Tobacco Use History This section includes a history of the smoking, or tobacco-related health factors, that were collected on or before the date of the Encounter. The data comes from the [place] facility where the Encounter took place. 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 Date/Time Encounter Note(s) Provider Source Nov 22, 2023 11:57 PM PHARMACY NOTE: LOCAL TITLE: V1 PHARMACY CUSTOMER CARE MEDICATION RENEWAL STANDARD TITLE: PHARMACY NOTE DATE OF NOTE: NOV 22, 2023@23:57 ENTRY DATE: NOV 22, 2023@23:57:17 AUTHOR: ZACKERY FRAZIER COSIGNER: URGENCY: STATUS: COMPLETED Date: Nov Division: [facility] referred by Pharmacy Call Center for medication renewal: Controlled substance Medications requested: [id number]$ DIAZEPAM 5MG TAB Defer to specialty clinic To be mailed . Please review and renew if appropriate. *This note was generated by [facility] Customer Care. If you have any questions or need assistance, do not contact this author. Please refer all questions to your local, on-site pharmacy departments. /leticia/ ZACKERY FRAZIER CPhT Lead Software Architect, [place]/Pharmacy Customer Care Signed: 11/22/2023 23:57 Receipt Acknowledged By: 11/27/2023 17:43 /leticia/ PHILIPPE WALLACE MD PHYSICIAN ZACKERY FRAZIER [place] [facility]
--- OUTSIDE RECORDS SUMMARY | 2024-11-20 10:02 | XMS_ITS ---
Author Name [facility] [place] [facility] [place] Address [address] [place] [address] Care Team Providers Care Freight Rate Analyst Name Role Phone JAVI TYLER Primary Care [...] Travis's Name Patient's Relationship to Policy Travis [facility]-B [facility]LL 2024 [facility] [id number] JAVI MURGUIA PATIENT Selected Encounter This section includes the information on record at [place] for the Encounter. Date/Time Encounter Type Encounter Description Reason Pro vider Source Dec 03, 2023 01:00 PM Outpatient Encounter SUBSTANCE USE DISORDER IND IHE Encounter Template Text not used by VA Plan of Treatment: Future Appointments (+ 6 [...] 20 appointments. The data comes from all [place] treatment facilities. Appointment Date/Time Appointment Type Appointme nt Facility Name Dec 18, 2023 11:00 AM AMBULATORY - MEDICINE [place] [facility] Feb 18, 2024 02:45 PM AMBULATORY - MEDICINE [place] [facility] April 10, 2024 11:15 AM [facility]UL[facility] - [facility]ICINE [place] [facility] May 25, 2024 02:00 PM [facility]UL[facility] Lab Results: +/- 30 days of the encounter This section includes the Chemistry and Hematology Lab Results on record with [place] for the patient. Radiology Reports and Pathology Reports are provided separately, in subsequent sections. Lab Results This section contains the Chemistry/Hematology Results that were resulted 30 days before or 30 daysafter the date of the Encounter. Date/Time Source Result Type Result - Unit Interpretation Reference Range Comment Nov 13, 2023 12:22 PM [facility] ALBUMIN Specimen Type: SERUM No comment entered. Ordering Provider: GIORGI BARRERA Report Released Date/Time: Oct 29, 2023 02:42 PM Reporting Lab: [facility] [address] [facility] [address] Performing Lab: [address] [address] ALBUMIN 3.1 g/dL L 3.5-5.0 Nov 13, 2023 12:22 PM [facility] PT & INR (PROTIME) Specimen Type: PLASMA No comment entered. Ordering Provider: GIORGI BARRERA Report Released Date/Time: Oct 29, 2023 02:42 PM Reporting Lab: [address] [address] Performing Lab: [address] [address] INR 1.1 PROTIME 12.8 s 10.0-13.1 Nov 13, 2023 12:21 PM [facility] FOLATE Specimen Type: SERUM No comment entered. Ordering Provider: BARRERA,WILL ANTHONY J Report Released Date/Time: Oct 29, 2023 02:42 PM Reporting Lab: [facility] [address] [facility] [address] Performing Lab: [facility] [address] [facility] [address] FOLATE 7.37 ng/mL >5.2 Nov 13, 2023 12:21 PM [facility] THYROID T4 FREE(FT4) Specimen Type: SERUM No comment entered. Ordering Provider: GIORGI BARRERA Report Released Date/Time: Oct 29, 2023 02:42 PM Reporting Lab: [address] [address] Performing Lab: [facility] [address] [facility] [address] THYROID T4 FREE(FT4) 0.87 ng/dL 0.6-1.6 Nov 13, 2023 12:21 PM [facility] SYPHILIS ABS W/RFLX Specimen Type: SERUM Comment: No laboratory evidence of syphilis infection. If recent exposure is suspected, re-draw sample in 2-4 weeks and repeat algorithm. Testing performed by T. pallidum specific immunoassay. Ordering Provider: GIORGI BARRERA Report Released Date/Time: Oct 29, 2023 02:42 PM Reporting Lab: [address] [address] Performing Lab: [address] [address] SYPHILIS ABS W/RFLX Non Reactive Non Reactive Nov 13, 2023 12:21 PM [facility] HEPATITIS B CORE (Total) Ab Specimen [...] Oct 29, 2023 02:42 PM Reporting Lab: [facility] [address] [facility] [address] Performing Lab: [facility] [address] HEPATITIS B CORE (Total) Ab Non Reactive Non Reactive Nov 13, 2023 12:21 PM [facility] RORY SCREEN/TITER Specimen Type: SERUM No comment entered. Ordering Provider: GIORGI BARRERA Report Released Date/Time: Oct 29, 2023 02:42 PM Reporting Lab: [facility] [address] [facility] [address] Performing Lab: [facility] [address] [facility] [address] RORY SCREEN NEG Nov 13, 2023 12:21 PM [facility] HEPATITIS C ANTIBODY (HCV)-ARC Specimen Type: SERUM Comment: Hep C Ab: No HCV antibody detected. If recent infection is suspected or other evidence suggests HCV infection, consider HCV nucleic acid testing Ordering Provider: GIORGI BARRERA Report Released Date/Time: Oct 29, 2023 02:42 PM Reporting Lab: [facility] [address] [facility] [address] Performing Lab: [facility] [address] [facility] [address] HEPATITIS C ANTIBODY NON-REACTIVE NON-REACTIV E Nov 13, 2023 12:21 PM [facility] VITAMIN B12 Specimen Type: SERUM No comment entered. Ordering Provider: GIORGI BARRERA Report Released Date/Time: Oct 29, 2023 02:42 PM Reporting Lab: [facility] [address] [facility] [address] Performing Lab: [facility] [address] [facility] [address] VITAMIN B12 727 pg/mL 200-900 Nov 13, 2023 12:21 PM [facility] VITAMIN D (25-OH) Specimen Type: SERUM No comment entered. Ordering Provider: GIORGI BARRERA Report Released Date/Time: Oct 29, 2023 02:42 PM Reporting Lab: [facility] [address] [facility] [address] Performing Lab: [facility] [address] [address] VITAMIN D (25-OH) 21 ng/mL 20-50 Nov 13, 2023 12:21 PM [facility] MAGNESIUM Specimen Type: SERUM No comment entered. Ordering Provider: GIORGI BARRERA Report Released Date/Time: Oct 29, 2023 02:42 PM Reporting Lab: [address] [address] Performing Lab: [address] [address] MAGNESIUM 1.9 mg/dL 1.6-2.6 Nov 13, 2023 12:21 PM [facility] TSH Specimen Type: SERUM No comment entered. Ordering Provider: GIORGI BARRERA Report Released Date/Time: Oct 29, 2023 02:42 PM Reporting Lab: [address] [address] Performing Lab: [address] [address] TSH 2.83 u[IU]/mL 0.35-5.00 Nov 13, 2023 12:21 PM [facility] PSA Specimen Type: SERUM No comment entered. Ordering Provider: GIORGI BARRERA Report Released Date/Time: Oct 29, 2023 02:42 PM Reporting Lab: [address] [address] Performing Lab: [facility] [address] [address] PSA 0.55 ng/mL 0.00-4.00 Nov 13, 2023 12:21 PM [facility] FERRITIN Specimen Type: SERUM No comment entered. Ordering Provider: GIORGI BARRERA Report Released Date/Time: Oct 29, 2023 02:42 PM Reporting Lab: [address] [address] Performing Lab: [address] [address] FERRITIN 427 ng/mL H 20-300 Nov 13, 2023 12:21 PM [facility] BASIC METABOLIC PANEL (non-fasting) Specimen Type: SERUM No comment entered. Ordering Provider: GIORGI BARRERA Report Released Date/Time: Oct 29, 2023 02:42 PM Reporting Lab: [address] [address] Performing Lab: [address] [address] UREA NITROGEN 8 mg/dL 7-25 GLUCOSE 81 mg/dL 65-100 SODIUM 139 mmol/L 135-145 POTASSIUM 3.9 mmol/L 3.5-5.0 CHLORIDE 101 mmol/L 100-110 CO2 27 meq/L 20-30 CREATININE, Serum 0.85 mg/dL 0.50-1.40 eGFR(CKD-EPI 2020) >90 mL/min >60 Nov 13, 2023 12:21 PM [facility] CBC AND DIFF (AUTO) Specimen Type: BLOOD No comment entered. Ordering Provider: GIORGI BARRERA Report Released Date/Time: Oct 29, 2023 02:42 PM Reporting Lab: [address] [address] Performing Lab: [address] [address] WBC 7.73 10*3/uL 4.50-11.00 RBC 4.05 10*6/uL L 4.23-5.66 HGB 12.8 g/dL 12.8-17 HCT 39.1 L 39.2-50.4 MCV 96.5 fL 82-99 MCHC 32.7 g/dL 30.8-35.1 PLT 439 10*3/uL H 140-360 RDW-CV 13.2 12.0-16.0 [place], Abs 0.82 10*3/uL 0.30-1.10 MCH 31.6 pg 26.2-32.6 Neut % 66.2 43.7-75.8 Lymph % 17.2 14.0-42.3 [place] % 10.6 5.1-13.7 Eos % 4.9 0.4-6.8 Baso % 0.5 0.1-2.0 Neut, Abs 5.11 10*3/uL 2.20-7.60 Lymph, Abs 1.33 10*3/uL 1.00-3.20 Eos, Abs 0.38 10*3/uL 0.03-0.44 Baso, Abs 0.04 10*3/uL 0.01-0.13 Immature Gran % 0.6 0.0-0.7 Immature Gran, Abs 0.05 10*3/uL 0.00-0.06 Nov 13, 2023 12:21 PM [facility] LIVER FUNCTION Specimen Type: SERUM No comment entered. Ordering Provider: GIORGI BARRERA Report Released Date/Time: Oct 29, 2023 02:42 PM Reporting Lab: [address] [address] Performing Lab: [address] [address] PROTEIN,TOTAL 6.7 g/dL 6.0-8.3 ALBUMIN 3.1 g/dL L 3.5-5.0 ALKALINE PHOSPHATASE 85 U/L 40-150 AST 37 U/L H 5-34 ALT 26 U/L BILIRUBIN, TOTAL 0.4 mg/dL 0.2-1.2 Nov 13, 2023 12:21 PM [facility] IRON & TIBC PANEL Specimen Type: SERUM No comment entered. Ordering Provider: GIORGI BARRERA Report Released Date/Time: Oct 29, 2023 02:42 PM Reporting Lab: [address] [address] Performing Lab: [address] [address] TIBC 249 ug/dL 204-475 IRON 54 ug/dL 40-160 Transferrin Saturation 21.6 20.0-50.0 Nov 13, 2023 12:21 PM [facility] [place] [facility] GAMMA-GTP Specimen Type: SERUM No comment entered. Ordering Provider: GIORGI BARRERA Report Released Date/Time: Oct 29, 2023 02:42 PM Reporting Lab: [facility] [place] [facility] [address] [facility] [address] Performing Lab: [place] [facility] [address] [facility] [address] GAMMA-GTP 81 U/L H 10-65 Nov 13, 2023 12:21 PM [facility] ALBUMIN Specimen Type: SERUM No comment entered. Ordering Provider: GIORGI BARRERA Report Released Date/Time: Oct 29, 2023 02:42 PM Reporting Lab: [facility] [place] [facility] [address] [facility] [address] Performing Lab: [place] [address] [address] ALBUMIN 3.1 g/dL L 3.5-5.0 Nov 13, 2023 12:21 PM [facility] PROTEIN,TOTAL Specimen Type: SERUM No comment entered. Ordering Provider: GIORGI BARRERA Report Released Date/Time: Oct 29, 2023 02:42 PM Reporting Lab: [facility] [place] [facility] [address] [facility] [address] Performing Lab: [place] [address] [address] PROTEIN,TOTAL 6.7 g/dL 6.0-8.3 Nov 13, 2023 12:21 PM [facility] ALKALINE PHOSPHATASE Specimen Type: SERUM No comment entered. Ordering Provider: GIORGI BARRERA Report Released Date/Time: Oct 29, 2023 02:42 PM Reporting Lab: [facility] [place] [place] [address] [address] Performing Lab: [place] [facility] [address] [facility] [address] ALKALINE PHOSPHATASE 85 U/L 40-150 Nov 13, 2023 12:21 PM [facility] RHEUMATOID FACTOR Specimen Type: SERUM No comment entered. Ordering Provider: GIORGI BARRERA Report Released Date/Time: Nov 13, 2023 12:08 PM Reporting Lab: [facility] [address] [facility] [address] Performing Lab: [place] [facility] [address] [facility] [address] RHEUMATOID FACTOR 16 H 0-15 Social History: Smoking Status (Most current) and Tobacco Use (All prior to encounter date) This section includes the most current, and the historical, smoking and tobacco- related health factors from the [place] facility where the Encounter took place. Current Smoking Status This section includes the most current smoking, or tobacco-related health factor, from the [place] facility where the Encounter took place. Date/Time Current Smoking Status Comment Katty ity Aug 15, 2023 04:34 PM VA-TOBACCO USER EVERY DAY [facility] Tobacco Use History This section includes a history of the smoking, or tobacco-related health factors, that were collected on or before the date of the Encounter. The data comes from the [place] facility where the Encounter took place. 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 Date/Time Encounter Note(s) Provider Source Dec 03, 2023 02:58 PM CLERICAL NOTE: LOCAL TITLE: APPOINTMENT NO SHOW STANDARD TITLE: CLERICAL NOTE DATE OF NOTE: DEC 03, 2023@14:58 ENTRY DATE: DEC 11, 2023@14:58:25 AUTHOR: JENNI VILLANUEVA EXP COSIGNER: URGENCY: STATUS: COMPLETED Patient Name: JAVI DAMON Patient SSN: [id number] Date and time of Appointment No show : 12/03/23 13:00 PATIENT PHONE - PHONE NUMBER [CELLULAR] - Patient's medical record was reviewed. Follow-up actions were determined and initiated: Please check/complete as applies: [X]Telephoned Directly [X]Re-scheduled for next available appt [X]Sent a N0-show letter ( must call for appointment) [ ]Other (Emergent/Overbook, etc.): Additional Comments: Future Clinic Visits 12/23/2023 10:15 CWM/NO/VVC/PAIN MD CLINIC 01/13/2024 11:00 CWM/NO/VVC/MHC/CLP2 05/11/2024 10:30 CWM/NO/PACT 7 /es/ Jenni Villanueva PsyD PTSD/LISSETH SPECIALIST Signed: 12/11/2023 14:58 JENNI VILLANUEVA [place] [facility]
--- OUTSIDE RECORDS SUMMARY | 2024-11-20 10:02 | XMS_ITS | Encounter Summary ---
Author Name [facility] [place] [facility] [place] Organization [place] Address [address] [place] [address] Care Team Providers Care Ceo & Co Founder Name Role Phone JAVI TYLER Primary Care [...] Travis's Name Patient's Relationship to Policy Travis [facility] 2017 [facility] CARE NON-B ILL 2024 [facility] [id number] JAVI MURGUIA PATIENT Selected Encounter This section includes the information on record at [place] for the Encounter. Date/Time Encounter Type Encounter Description Reason Pro vider Source Jan 15, 2024 09:08 AM Outpatient Encounter TELEPHONE LISSETH IHE Encounter Template Text not used by [...] 20 appointments. The data comes from all [place] treatment facilities. Appointment Date/Time Appointment Type Appointme nt Facility Name Feb 18, 2024 02:45 PM AMBULATORY - MEDICINE [place] [facility] April 10, 2024 11:15 AM AMBULATORY - MEDICINE [place] [facility] May 25, 2024 02:00 PM AMBULATORY - MEDICINE [place] [facility] Jul 16, 2024 09:00 AM AMBULATORY - MEDICINE [facility] Social History: Smoking Status (Most current) and Tobacco Use (All prior to encounter date) This section includes the most current, and the historical, smoking and tobacco- related health factors from the [place] facility where the Encounter took place. Current Smoking Status This section includes the most current smoking, or tobacco-related health factor, from the [place] facility where the Encounter took place. Date/Time Current Smoking Status Comment Facil ity Aug 15, 2023 04:34 PM [facility]-TOBACCO USER EVERY [facility] Tobacco Use History This section includes a history of the smoking, or tobacco-related health factors, that were collected on or before the date of the Encounter. The data comes from the [place] facility where the Encounter took place. Date/Time Smoking Status/Tobacco Use Comment F acility Aug 15, 2023 04:34 PM VA-TOBACCO USE > 1 5 LESS THAN 30 YEARS [place] [facility] [place] [facility] Aug 15, 2023 04:34 PM VA-TOBACCO USE ADVICE 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 /leticia/ Jenni Villanueva PsyD PTSD/LISSETH SPECIALIST Signed: 01/15/2024 09:09 JENNI VILLANUEVA [place] [facility]
--- OUTSIDE RECORDS SUMMARY | 2024-11-20 10:02 | XMS_ITS | Encounter Summary ---
Author Name [facility] [place] Address [address] [place] [address] Care Team Providers Care College And Career Counselor Name Role Phone JAVI TYLER Primary Care [...] Travis's Name Patient's Relationship to Policy Travis [facility] CARE NON-B ILL 2024 [facility] [id number] [phone] JAVI MURGUIA PATIENT Selected Encounter This section includes the information on record at [place] for the Encounter. Date/Time Encounter Type Encounter Description Reason Pro vider Source Jan 10, 2024 07:59 AM Outpatient Encounter PAIN CLINIC IHE Encounter Template Text not used by [place] Plan of Treatment: Future Appointments (+ 6 [...] 20 appointments. The data comes from all [place] treatment facilities. Appointment Date/Time Appointment Type Appointme nt Facility Name Feb 18, 2024 02:45 PM AMBULATORY - [place]ICINE [place] [facility] April 10, 2024 11:15 AM AMBULATORY - [place]ICINE [place] [facility] May 25, 2024 02:00 PM AMBULATORY - MEDICINE [facility] Social History: Smoking Status (Most current) and Tobacco Use (All prior to encounter date) This section includes the most current, and the historical, smoking and tobacco- related health factors from the [place] facility where the Encounter took place. Current Smoking Status This section includes the most current smoking, or tobacco-related health factor, from the [place] facility where the Encounter took place. Date/Time Current Smoking Status Comment Facil ity Aug 15, 2023 04:34 PM VA-TOBACCO DOESNT USE WI 30 MIN [facility] Tobacco Use History This section includes a history of the smoking, or tobacco-related health factors, that were collected on or before the date of the Encounter. The data comes from the [place] facility where the Encounter took place. 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 Date/Time Encounter Note(s) Provider Source Jan 10, 2024 07:59 AM TELEPHONE ENCOUNTE R NOTE: LOCAL TITLE: TELEPHONE NOTE/SPECIALTY CLINIC STANDARD TITLE: TELEPHONE ENCOUNTER NOTE DATE OF NOTE: JAN 10, 2024@07:59 ENTRY DATE: JAN 10, 2024@07:59:08 AUTHOR: KENNETH HUSTON EXP COSIGNER: URGENCY: STATUS: COMPLETED TELEPHONE NOTE/SPECIALTY CLINIC Has ADDENDA left 2 messages on pain clinic vm asking to speak with Dr. Perdomo. He would like call back from provider in regards to medication. He may be having a reaction. Scouring Machine Tender called back an LM on VM Please call [phone] /leticia/ KENNETH HUSTON ADVANCED SMELTER CHARGER Signed: 01/10/2024 08:00 Receipt Acknowledged By: 01/16/2024 11:33 /leticia/ RAYSHAWN DE GUZMAN, PHARM.D CLINICAL PHARMACIST PRACTITIONER for ANGELA COE 01/15/2024 09:21 /leticia/ PHILIPPE PERDOMO MD PHYSICIAN 01/15/2024 ADDENDUM STATUS: COMPLETED I left message for . /leticia/ PHILIPPE PERDOMO MD PHYSICIAN Signed: 01/15/2024 09:21 KENNETH HUSTON CN[facility]L [facility]
--- OUTSIDE RECORDS SUMMARY | 2024-11-20 10:02 | XMS_ITS ---
Author Name [facility] Organization [facility] [place] Address [address] [place] [address] Care Team Providers Care Folder Seamer Automatic Name Role Phone JAVI TYLER Primary Care [...] Travis's Name Patient's Relationship to Policy Travis [facility] 2017 [facility] CARE NON-B ILL 2024 [facility] [place] [id number] JAVI MURGUIA PATIENT Selected Encounter This section includes the information on record at [place] for the Encounter. Date/Time Encounter Type Encounter Description Reason Pro vider Source Jan 13, 2024 11:00 AM [facility]patient [facility] En[facility] Template Text not used by [place] Plan of Treatment: Future Appointments (+ 6 [...] 20 appointments. The data comes from all [place] treatment facilities. Appointment Date/Time Appointment Type Appointme nt Facility Name Feb 18, 2024 02:45 PM AMBULATORY - MEDICINE [place] [facility] April 10, 2024 11:15 AM AMBULATORY - MEDICINE [place] C [place] [facility] May 25, 2024 02:00 PM AMBULATORY - MEDICINE [facility] Social History: Smoking Status (Most current) and Tobacco Use (All prior to encounter date) This section includes the most current, and the historical, smoking and tobacco- related health factors from the [place] facility where the Encounter took place. Current Smoking Status This section includes the most current smoking, or tobacco-related health factor, from the [place] facility where the Encounter took place. Date/Time Current Smoking Status Comment Facil ity Aug 15, 2023 04:34 PM VA-TOBACCO USER EVERY DAY [facility] Tobacco Use History This section includes a history of the smoking, or tobacco-related health factors, that were collected on or before the date of the Encounter. The data comes from the [place] facility where the Encounter took place. 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 Date/Time Encounter Note(s) Provider Source Dec 25, 2023 09:38 AM ADMINISTRATIVE NOT E: LOCAL TITLE: ADMINISTRATIVE RECALL NOTE STANDARD TITLE: ADMINISTRATIVE NOTE DATE OF NOTE: DEC 25, 2023@09:38 ENTRY DATE: DEC 25, 2023@09:38:33 AUTHOR: PINA SHARPE EXP COSIGNER: URGENCY: STATUS: COMPLETED RTC orders: Unable to contact patient: Attempts to contact: 1st attempt: Left voicemail 2nd attempt: 3rd attempt: 4th attempt: /leticia/ PINA SHARPE GLASS FITTER Signed: 12/25/2023 09:39 PINA SHARPE CNTL [facility]
--- OUTSIDE RECORDS SUMMARY | 2024-11-20 10:02 | XMS_ITS | Encounter Summary ---
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 Date/Time Encounter Type Encounter Description Reason Pro vider Source Nov 27, 2023 02:38 PM Outpatient Encounter PAIN CLINIC IHE Encounter Template Text not used by [place] Plan of Treatment: Future Appointments (+ 6 [...] 20 appointments. The data comes from all [place] treatment facilities. Appointment Date/Time Appointment Type Appointme nt Facility Name Dec 03, 2023 01:00 PM AMBULATORY - [facility]IATRY [place] [facility] Dec 18, 2023 11:00 AM AMBULATORY - MEDICINE [place] [facility] Feb 18, 2024 02:45 PM AMBULATORY - MEDICINE [place] [facility] April 10, 2024 11:15 AM AMBULATORY - MEDICINE [place] [facility] May 25, 2024 02:00 PM AMBULATORY - MEDICINE [facility] Lab Results: +/- 30 days of the encounter This section includes the Chemistry and Hematology Lab Results on record with [place] for the patient. Radiology Reports and Pathology Reports are provided separately, in subsequent sections. Lab Results This section contains the Chemistry/Hematology Results that were resulted 30 days before or 30 daysafter the date of the Encounter. Date/Time Source Result Type Result - Unit Interpretation Reference Range Comment Nov 13, 2023 12:22 PM [facility] ALBUMIN Specimen Type: SERUM No comment entered. Ordering Provider: GIORGI BARRERA Report Released Date/Time: Oct 29, 2023 02:42 PM Reporting Lab: [address] [address] Performing Lab: [address] [address] ALBUMIN 3.1 g/dL L 3.5-5.0 Nov 13, 2023 12:22 PM [facility] PT & INR (PROTIME) Specimen Type: PLASMA No comment entered. Ordering Provider: GIORGI BARRERA Report Released Date/Time: Oct 29, 2023 02:42 PM Reporting Lab: [address] [address] Performing Lab: [address] [address] INR 1.1 PROTIME 12.8 s 10.0-13.1 Nov 13, 2023 12:21 PM [facility] FOLATE Specimen Type: SERUM No comment entered. Ordering Provider: GIORGI BARRERA Report Released Date/Time: Oct 29, 2023 02:42 PM Reporting Lab: [facility] [address] [facility] [address] Performing Lab: [facility] [address] [address] FOLATE 7.37 ng/mL >5.2 Nov 13, 2023 12:21 PM [facility] THYROID T4 FREE(FT4) Specimen Type: SERUM No comment entered. Ordering Provider: GIORGI BARRERA Report Released Date/Time: Oct 29, 2023 02:42 PM Reporting Lab: [address] [address] Performing Lab: [facility] [address] [address] THYROID T4 FREE(FT4) 0.87 ng/dL 0.6-1.6 Nov 13, 2023 12:21 PM [facility] SYPHILIS ABS W/RFLX Specimen Type: SERUM Comment: No laboratory evidence of syphilis infection. If recent exposure is suspected, re-draw sample in 2-4 weeks and repeat algorithm. Testing performed by T. pallidum specific immunoassay. Ordering Provider: GIORGI BARRERA Report Released Date/Time: Oct 29, 2023 02:42 PM Reporting Lab: [address] [address] Performing Lab: [facility] [address] [address] SYPHILIS ABS W/RFLX Non Reactive Non Reactive Nov 13, 2023 12:21 PM [facility] HEPATITIS B CORE (Total) Ab Specimen [...] Oct 29, 2023 02:42 PM Reporting Lab: [facility] [address] [facility] [address] Performing Lab: [facility] [address] [facility] [address] HEPATITIS B CORE (Total) Ab Non Reactive Non Reactive Nov 13, 2023 12:21 PM [facility] RORY SCREEN/TITER Specimen Type: SERUM No comment entered. Ordering Provider: GIORGI BARRERA Report Released Date/Time: Oct 29, 2023 02:42 PM Reporting Lab: [facility] [address] [facility] [address] Performing Lab: [facility] [address] [facility] [address] RORY SCREEN NEG Nov 13, 2023 12:21 PM [facility] HEPATITIS C ANTIBODY (HCV)-ARC Specimen Type: SERUM Comment: Hep C Ab: No HCV antibody detected. If recent infection is suspected or other evidence suggests HCV infection, consider HCV nucleic acid testing Ordering Provider: GIORGI BARRERA Report Released Date/Time: Oct 29, 2023 02:42 PM Reporting Lab: [facility] [address] [facility] [address] Performing Lab: [address] [address] HEPATITIS C ANTIBODY NON-REACTIVE NON-REACTIV E Nov 13, 2023 12:21 PM [facility] VITAMIN B12 Specimen Type: SERUM No comment entered. Ordering Provider: GIORGI BARRERA Report Released Date/Time: Oct 29, 2023 02:42 PM Reporting Lab: [facility] [address] [address] Performing Lab: [address] [address] VITAMIN B12 727 pg/mL 200-900 Nov 13, 2023 12:21 PM [facility] VITAMIN D (25-OH) Specimen Type: SERUM No comment entered. Ordering Provider: GIORGI BARRERA Report Released Date/Time: Oct 29, 2023 02:42 PM Reporting Lab: [facility] [address] [address] Performing Lab: [facility] [address] [facility] [address] VITAMIN D (25-OH) 21 ng/mL 20-50 Nov 13, 2023 12:21 PM [facility] MAGNESIUM Specimen Type: SERUM No comment entered. Ordering Provider: GIORGI BARRERA Report Released Date/Time: Oct 29, 2023 02:42 PM Reporting Lab: [facility] [address] [address] Performing Lab: [address] [address] MAGNESIUM 1.9 mg/dL 1.6-2.6 Nov 13, 2023 12:21 PM [facility] TSH Specimen Type: SERUM No comment entered. Ordering Provider: GIORGI BARRERA Report Released Date/Time: Oct 29, 2023 02:42 PM Reporting Lab: [facility] [address] [address] Performing Lab: [address] [address] TSH 2.83 u[IU]/mL 0.35-5.00 Nov 13, 2023 12:21 PM [facility] PSA Specimen Type: SERUM No comment entered. Ordering Provider: GIORGI BARRERA Report Released Date/Time: Oct 29, 2023 02:42 PM Reporting Lab: [facility] [address] [address] Performing Lab: [address] [address] PSA 0.55 ng/mL 0.00-4.00 Nov 13, 2023 12:21 PM [facility] FERRITIN Specimen Type: SERUM No comment entered. Ordering Provider: GIORGI BARRERA Report Released Date/Time: Oct 29, 2023 02:42 PM Reporting Lab: [address] [address] Performing Lab: [address] [address] FERRITIN 427 ng/mL H 20-300 Nov 13, 2023 12:21 PM [facility] BASIC METABOLIC PANEL (non-fasting) Specimen Type: SERUM No comment entered. Ordering Provider: GIORGI BARRERA Report Released Date/Time: Oct 29, 2023 02:42 PM Reporting Lab: [address] [address] Performing Lab: [address] [address] UREA NITROGEN 8 mg/dL 7-25 GLUCOSE 81 mg/dL 65-100 SODIUM 139 mmol/L 135-145 POTASSIUM 3.9 mmol/L 3.5-5.0 CHLORIDE 101 mmol/L 100-110 CO2 27 meq/L 20-30 CREATININE, Serum 0.85 mg/dL 0.50-1.40 eGFR(CKD-EPI 2020) >90 mL/min >60 Nov 13, 2023 12:21 PM [facility] CBC AND DIFF (AUTO) Specimen Type: BLOOD No comment entered. Ordering Provider: GIORGI BARRERA Report Released Date/Time: Oct 29, 2023 02:42 PM Reporting Lab: [address] [address] Performing Lab: [address] [address] WBC 7.73 10*3/uL 4.50-11.00 RBC 4.05 10*6/uL L 4.23-5.66 HGB 12.8 g/dL 12.8-17 HCT 39.1 L 39.2-50.4 MCV 96.5 fL 82-99 MCHC 32.7 g/dL 30.8-35.1 PLT 439 10*3/uL H 140-360 RDW-CV 13.2 12.0-16.0 Addison, Abs 0.82 10*3/uL 0.30-1.10 MCH 31.6 pg 26.2-32.6 Neut % 66.2 43.7-75.8 Lymph % 17.2 14.0-42.3 Addison % 10.6 5.1-13.7 Eos % 4.9 0.4-6.8 Baso % 0.5 0.1-2.0 Neut, Abs 5.11 10*3/uL 2.20-7.60 Lymph, Abs 1.33 10*3/uL 1.00-3.20 Eos, Abs 0.38 10*3/uL 0.03-0.44 Baso, Abs 0.04 10*3/uL 0.01-0.13 Immature Gran % 0.6 0.0-0.7 Immature Gran, Abs 0.05 10*3/uL 0.00-0.06 Nov 13, 2023 12:21 PM [facility] LIVER FUNCTION Specimen Type: SERUM No comment entered. Ordering Provider: GIORGI BARRERA Report Released Date/Time: Oct 29, 2023 02:42 PM Reporting Lab: [address] [address] Performing Lab: [address] [address] PROTEIN,TOTAL 6.7 g/dL 6.0-8.3 ALBUMIN 3.1 g/dL L 3.5-5.0 ALKALINE PHOSPHATASE 85 U/L 40-150 AST 37 U/L H 5-34 ALT 26 U/L BILIRUBIN, TOTAL 0.4 mg/dL 0.2-1.2 Nov 13, 2023 12:21 PM [facility] IRON & TIBC PANEL Specimen Type: SERUM No comment entered. Ordering Provider: GIORGI BARRERA Report Released Date/Time: Oct 29, 2023 02:42 PM Reporting Lab: [address] [address] Performing Lab: [facility] [address] [address] [address] TIBC 249 ug/dL 204-475 IRON 54 ug/dL 40-160 Transferrin Saturation 21.6 20.0-50.0 Nov 13, 2023 12:21 PM [facility] GAMMA-GTP Specimen Type: SERUM No comment entered. Ordering Provider: GIORGI BARRERA Report Released Date/Time: Oct 29, 2023 02:42 PM Reporting Lab: [facility] [address] [facility] [address] Performing Lab: [facility] [address] [address] GAMMA-GTP 81 U/L H 10-65 Nov 13, 2023 12:21 PM [facility] ALBUMIN Specimen Type: SERUM No comment entered. Ordering Provider: GIORGI BARRERA Report Released Date/Time: Oct 29, 2023 02:42 PM Reporting Lab: [facility] [address] [facility] [address] Performing Lab: [facility] [address] [address] ALBUMIN 3.1 g/dL L 3.5-5.0 Nov 13, 2023 12:21 PM [facility] PROTEIN,TOTAL Specimen Type: SERUM No comment entered. Ordering Provider: GIORGI BARRERA Report Released Date/Time: Oct 29, 2023 02:42 PM Reporting Lab: [facility] [address] [facility] [address] Performing Lab: [facility]N [facility] [address] [address] PROTEIN,TOTAL 6.7 g/dL 6.0-8.3 Nov 13, 2023 12:21 PM [facility] ALKALINE PHOSPHATASE Specimen Type: SERUM No comment entered. Ordering Provider: GIORGI BARRERA Report Released Date/Time: Oct 29, 2023 02:42 PM Reporting Lab: [facility] [place] [facility] [address] [address] Performing Lab: [place] [facility] [address] [address] ALKALINE PHOSPHATASE 85 U/L 40-150 Nov 13, 2023 12:21 PM [facility] RHEUMATOID FACTOR Specimen Type: SERUM No comment entered. Ordering Provider: GIORGI BARRERA Report Released Date/Time: Nov 13, 2023 12:08 PM Reporting Lab: [place] [facility] [address] [facility] [address] Performing Lab: [place] [facility] [address] [facility] [address] RHEUMATOID FACTOR 16 H 0-15 Social History: Smoking Status (Most current) and Tobacco Use (All prior to encounter date) This section includes the most current, and the historical, smoking and tobacco- related health factors from the [place] facility where the Encounter took place. Current Smoking Status This section includes the most current smoking, or tobacco-related health factor, from the [place] facility where the Encounter took place. Date/Time Current Smoking Status Comment Facil ity Aug 15, 2023 04:34 PM VA-TOBACCO USER EVERY DAY [facility] Tobacco Use History This section includes a history of the smoking, or tobacco-related health factors, that were collected on or before the date of the Encounter. The data comes from the [place] facility where the Encounter took place. Date/Time Smoking Status/Tobacco Use Comment F acility Aug 15, 2023 04:34 PM VA-TOBACCO USE > 1 5 LESS THAN 30 YEARS [place] [facility] [facility] Aug 15, 2023 04:34 PM VA-TOBACCO USE ADVICE [place] [facility] Aug 15, 2023 04:34 PM VA-TOBACCO USE ACETYLENE BURNER NO [place] [facility] Aug 15, 2023 04:34 PM VA-TOBACCO USE MED NO [place] [facility] Aug 15, 2023 04:34 PM VA-TOBACCO USER EVERY DAY [facility] Encounter Notes: All associated encounter notes This section contains the clinical notes associated to the Encounter. Date/Time Encounter Note(s) Provider Source Nov 27, 2023 02:38 PM TELEPHONE ENCOUNTE R NOTE: LOCAL TITLE: TELEPHONE NOTE/SPECIALTY CLINIC STANDARD TITLE: TELEPHONE ENCOUNTER NOTE DATE OF NOTE: NOV 27, 2023@14:38 ENTRY DATE: NOV 27, 2023@14:38:39 AUTHOR: KENNETH HUSTON EXP COSIGNER: URGENCY: STATUS: COMPLETED Talked with vet to schedule f/u vvc appt for 12/23/2023 @1015 . Vet states he has not received refills for 2-3 medications. He did not remember name of meds. Please advise /leticia/ KENNETH HUSTON ADVANCED LICENSED PLUMBER Signed: 11/27/2023 14:39 Receipt Acknowledged By: 11/27/2023 17:43 /leticia/ PHILIPPE WALLACE MD PHYSICIAN KENNETH HUSTON CNTL [facility]
--- OUTSIDE RECORDS SUMMARY | 2024-11-20 10:02 | XMS_ITS | Encounter Summary ---
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 T CARE NON-B ILL 2024 [facility] [id number] JAVI MURGUIA PATIENT Selected Encounter This section includes the information on record at [place] for the Encounter. Date/Time Encounter Type Encounter Description Reason Pro vider Source Dec 17, 2023 11:18 AM Outpatient Encounter PAIN CLINIC IHE Encounter [...] 20 appointments. The data comes from all [place] treatment facilities. Appointment Date/Time Appointment Type Appointme nt Facility Name Dec 18, 2023 11:00 AM AMBULATORY - MEDICINE [place] [facility] Feb 18, 2024 02:45 PM AMBULATORY - MEDICINE DE [place] [facility] April 10, 2024 11:15 AM AMBULATORY - MEDICINE DE C [place] [facility] May 25, 2024 02:00 PM AMBULATORY - MEDICINE [place] [facility] Social History: Smoking Status (Most current) and Tobacco Use (All prior to encounter date) This section includes the most current, and the historical, smoking and tobacco- related health factors from the [place] facility where the Encounter took place. Current Smoking Status This section includes the most current smoking, or tobacco-related health factor, from the [place] facility where the Encounter took place. Date/Time Current Smoking Status Comment Facil ity Aug 15, 2023 04:34 PM VA-TOBACCO USER EVERY DAY [facility] Tobacco Use History This section includes a history of the smoking, or tobacco-related health factors, that were collected on or before the date of the Encounter. The data comes from the [place] facility where the Encounter took place. 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 Date/Time Encounter Note(s) Provider Source Dec 17, 2023 11:18 AM TELEPHONE ENCOUNTE R NOTE: LOCAL TITLE: TELEPHONE NOTE/SPECIALTY CLINIC STANDARD TITLE: TELEPHONE ENCOUNTER NOTE DATE OF NOTE: DEC 17, 2023@11:18 ENTRY DATE: DEC 17, 2023@11:18:09 AUTHOR: KENNETH HUSTON EXP COSIGNER: URGENCY: STATUS: COMPLETED Called and spoke with pt to reminded them that they have a FTF appt with the Pain clinic on 12/18/2023 at 1100. Location was confirmed /leticia/ KENNETH HUSTON ADVANCED PROTECTION CONSULTANT Signed: 12/17/2023 11:18 KENNETH HUSTON DE CNTRL WSTRN [facility]
--- OUTSIDE RECORDS SUMMARY | 2024-11-20 10:02 | XMS_ITS ---
Author Name [facility] [place] Address [address] [place] [address] Care Team Providers Care Nursing Home Admissions Director Name Role Phone JAVI TYLER Primary Care [...] Travis's Name Patient's Relationship to Policy Travis [address] CARE NON-B ILL 2024 [facility] [id number] [phone] JAVI MURGUIA PATIENT Selected Encounter This section includes the information on record at [place] for the Encounter. Date/Time Encounter Type Encounter Description Reason Provider Source Nov 26, 2023 01:00 PM SELF-HELP/PEER SVC PER 15MIN SUBSTANCE USE DISORDER IND ICD-10-CM F10.20 Alcohol dependence, uncomplicated DALE CARRIZALES E Encounter Template Text not used by [place] Assessments - Encounter Diagnoses This section includes the primary and secondary diagnoses documented for the Encounter. Date/Time Primary/Secondary Diagnosis Diagnosis Name Provider Source Nov 26, 2023 02:51 PM PRIMARY Alcohol dependence, uncomplicated DALE CARRIZALES [facility] [place] [facility] Nov 26, 2023 02:51 PM SECONDARY Post-traumatic stress disorder, unspecified DALE CARRIZALES [facility] Plan of Treatment: Future Appointments (+ 6 months) and Future Tests (+/- 45 days) The Plan of Treatment section includes future care activities for the patient from all [place] treatmentfacilities. This section includes future appointments and future orders which are active, pending or scheduled. Future Appointments This section includes appointments that were scheduled to occur 6 months from the date of the Encounter, up to a maximum of 20 appointments. The data comes from all [place] treatment facilities. Appointment Date/Time Appointment Type Appointme nt Facility Name Dec 03, 2023 01:00 PM [facility] Dec 18, 2023 11:00 AM [facility] Feb 18, 2024 02:45 PM [facility] April 10, 2024 11:15 AM [facility] - [facility] May 25, 2024 02:00 PM AMBULATORY - MEDICINE [facility] Lab Results: +/- 30 days of the encounter This section includes the Chemistry and Hematology Lab Results on record with [place] for the patient. Radiology Reports and Pathology Reports are provided separately, in subsequent sections. Lab Results This section contains the Chemistry/Hematology Results that were resulted 30 days before or 30 daysafter the date of the Encounter. Date/Time Source Result Type Result - Unit Interpretation Reference Range Comment Nov 13, 2023 12:22 PM [facility] ALBUMIN Specimen Type: SERUM No comment entered. Ordering Provider: GIORGI BARRERA Report Released Date/Time: Oct 29, 2023 02:42 PM Reporting Lab: [address] [address] Performing Lab: [address] [address] ALBUMIN 3.1 g/dL L 3.5-5.0 Nov 13, 2023 12:22 PM [facility] PT & INR (PROTIME) Specimen Type: PLASMA No comment entered. Ordering Provider: GIORGI BARRERA Report Released Date/Time: Oct 29, 2023 02:42 PM Reporting Lab: [facility] [address] [facility] [address] Performing Lab: [facility] [address] [facility] [address] INR 1.1 PROTIME 12.8 s 10.0-13.1 Nov 13, 2023 12:21 PM [facility] FOLATE Specimen Type: SERUM No comment entered. Ordering Provider: GIORGI BARRERA Report Released Date/Time: Oct 29, 2023 02:42 PM Reporting Lab: [facility] [address] [facility] [address] Performing Lab: [facility] [address] [facility] [address] FOLATE 7.37 ng/mL >5.2 Nov 13, 2023 12:21 PM [facility] THYROID T4 FREE(FT4) Specimen Type: SERUM No comment entered. Ordering Provider: GIORGI BARRERA Report Released Date/Time: Oct 29, 2023 02:42 PM Reporting Lab: [facility] [address] [facility] [address] Performing Lab: [facility] [address] [facility] [address] THYROID T4 FREE(FT4) 0.87 ng/dL 0.6-1.6 Nov 13, 2023 12:21 PM [facility] SYPHILIS ABS W/RFLX Specimen Type: SERUM Comment: No laboratory evidence of syphilis infection. If recent exposure is suspected, re-draw sample in 2-4 weeks and repeat algorithm. Testing performed by T. pallidum specific immunoassay. Ordering Provider: GIORGI BARRERA Report Released Date/Time: Oct 29, 2023 02:42 PM Reporting Lab: [address] [address] Performing Lab: [facility] [address] [facility] [address] SYPHILIS ABS W/RFLX Non Reactive Non Reactive Nov 13, 2023 12:21 PM [facility] HEPATITIS B CORE (Total) Ab Specimen [...] Oct 29, 2023 02:42 PM Reporting Lab: [address] [address] Performing Lab: [address] [address] HEPATITIS B CORE (Total) Ab Non Reactive Non Reactive Nov 13, 2023 12:21 PM [facility] RORY SCREEN/TITER Specimen Type: SERUM No comment entered. Ordering Provider: GIORGI BARRERA Report Released Date/Time: Oct 29, 2023 02:42 PM Reporting Lab: [facility] [address] [facility] [address] Performing Lab: [facility] [address] [facility] [address] RORY SCREEN NEG Nov 13, 2023 12:21 PM [facility] HEPATITIS C ANTIBODY (HCV)-ARC Specimen Type: SERUM Comment: Hep C Ab: No HCV antibody detected. If recent infection is suspected or other evidence suggests HCV infection, consider HCV nucleic acid testing Ordering Provider: GIORGI BARRERA Report Released Date/Time: Oct 29, 2023 02:42 PM Reporting Lab: [address] [address] Performing Lab: [address] [address] HEPATITIS C ANTIBODY NON-REACTIVE NON-REACTIV E Nov 13, 2023 12:21 PM [facility] VITAMIN B12 Specimen Type: SERUM No comment entered. Ordering Provider: GIORGI BARRERA Report Released Date/Time: Oct 29, 2023 02:42 PM Reporting Lab: [facility] [address] [facility] [address] Performing Lab: [facility] [address] [facility] [address] VITAMIN B12 727 pg/mL 200-900 Nov 13, 2023 12:21 PM [facility] VITAMIN D (25-[place]) Specimen Type: SERUM No comment entered. Ordering Provider: GIORGI BARRERA Report Released Date/Time: Oct 29, 2023 02:42 PM Reporting Lab: [facility] [address] [facility] [address] Performing Lab: [facility]ITALUSETS [address] [address] VITAMIN D (25-[place]) 21 ng/mL 20-50 Nov 13, 2023 12:21 PM [facility] MAGNESIUM Specimen Type: SERUM No comment entered. Ordering Provider: GIORGI BARRERA Report Released Date/Time: Oct 29, 2023 02:42 PM Reporting Lab: [facility] [address] [facility] [address] Performing Lab: [facility]ITALUSETS [address] [address] MAGNESIUM 1.9 mg/dL 1.6-2.6 Nov 13, 2023 12:21 PM [facility] TSH Specimen Type: SERUM No comment entered. Ordering Provider: GIORGI BARRERA Report Released Date/Time: Oct 29, 2023 02:42 PM Reporting Lab: [facility]N [facility]ITAL[facility] [address] [facility] [address] Performing Lab: [facility]ERN [facility]ITALUSETS [address] [address] TSH 2.83 u[IU]/mL 0.35-5.00 Nov 13, 2023 12:21 PM [facility] PSA Specimen Type: SERUM No comment entered. Ordering Provider: GIORGI BARRERA Report Released Date/Time: Oct 29, 2023 02:42 PM Reporting Lab: [facility] [address] [facility] [address] Performing Lab: [address] [address] PSA 0.55 ng/mL 0.00-4.00 Nov 13, 2023 12:21 PM [facility] CBC AND DIFF (AUTO) Specimen Type: BLOOD No comment entered. Ordering Provider: GIORGI BARRERA Report Released Date/Time: Oct 29, 2023 02:42 PM Reporting Lab: [facility] [address] [facility] [address] Performing Lab: [address] [address] WBC 7.73 10*3/uL 4.50-11.00 RBC 4.05 10*6/uL L 4.23-5.66 HGB 12.8 g/dL 12.8-17 HCT 39.1 L 39.2-50.4 MCV 96.5 fL 82-99 MCHC 32.7 g/dL 30.8-35.1 PLT 439 10*3/uL H 140-360 RDW-CV 13.2 12.0-16.0 Custer, Abs 0.82 10*3/uL 0.30-1.10 MCH 31.6 pg 26.2-32.6 Neut % 66.2 43.7-75.8 Lymph % 17.2 14.0-42.3 Custer % 10.6 5.1-13.7 Eos % 4.9 0.4-6.8 Baso % 0.5 0.1-2.0 Neut, Abs 5.11 10*3/uL 2.20-7.60 Lymph, Abs 1.33 10*3/uL 1.00-3.20 Eos, Abs 0.38 10*3/uL 0.03-0.44 Baso, Abs 0.04 10*3/uL 0.01-0.13 Immature Gran % 0.6 0.0-0.7 Immature Gran, Abs 0.05 10*3/uL 0.00-0.06 Nov 13, 2023 12:21 PM [facility] FERRITIN Specimen Type: SERUM No comment entered. Ordering Provider: GIORGI BARRERA Report Released Date/Time: Oct 29, 2023 02:42 PM Reporting Lab: [address] [address] Performing Lab: [address] [address] FERRITIN 427 ng/mL H 20-300 Nov 13, 2023 12:21 PM [facility] LIVER FUNCTION Specimen Type: SERUM No comment entered. Ordering Provider: GIORGI BARRERA Report Released Date/Time: Oct 29, 2023 02:42 PM Reporting Lab: [address] [address] Performing Lab: [address] [address] PROTEIN,TOTAL 6.7 g/dL 6.0-8.3 ALBUMIN 3.1 g/dL L 3.5-5.0 ALKALINE PHOSPHATASE 85 U/L 40-150 AST 37 U/L H 5-34 ALT 26 U/L BILIRUBIN, TOTAL 0.4 mg/dL 0.2-1.2 Nov 13, 2023 12:21 PM [facility] BASIC METABOLIC PANEL (non-fasting) Specimen Type: SERUM No comment entered. Ordering Provider: GIORGI BARRERA Report Released Date/Time: Oct 29, 2023 02:42 PM Reporting Lab: [address] [address] Performing Lab: [address] [address] UREA NITROGEN 8 mg/dL 7-25 GLUCOSE 81 mg/dL 65-100 SODIUM 139 mmol/L 135-145 POTASSIUM 3.9 mmol/L 3.5-5.0 CHLORIDE 101 mmol/L 100-110 CO2 27 meq/L 20-30 CREATININE, Serum 0.85 mg/dL 0.50-1.40 eGFR(CKD-EPI 2020) >90 mL/min >60 Nov 13, 2023 12:21 PM [facility] GAMMA-GTP Specimen Type: SERUM No comment entered. Ordering Provider: GIORGI BARRERA Report Released Date/Time: Oct 29, 2023 02:42 PM Reporting Lab: [facility]N [facility]ITALUSETS [facility] [address] [facility] [address] Performing Lab: [facility]N [facility]ITALUSETS [address] [address] GAMMA-GTP 81 U/L H 10-65 Nov 13, 2023 12:21 PM [facility] IRON & TIBC PANEL Specimen Type: SERUM No comment entered. Ordering Provider: GIORGI BARRERA Report Released Date/Time: Oct 29, 2023 02:42 PM Reporting Lab: [facility] [address] [facility] [address] Performing Lab: [facility]ITALUSE[address] [address] TIBC 249 ug/dL 204-475 IRON 54 ug/dL 40-160 Transferrin Saturation 21.6 20.0-50.0 Nov 13, 2023 12:21 PM [facility] ALBUMIN Specimen Type: SERUM No comment entered. Ordering Provider: GIORGI BARRERA Report Released Date/Time: Oct 29, 2023 02:42 PM Reporting Lab: [facility]ERN [facility]PITALUSETS [facility] [address] [facility] [address] Performing Lab: [facility]ITALUSE[address] [address] ALBUMIN 3.1 g/dL L 3.5-5.0 Nov 13, 2023 12:21 PM [facility] PROTEIN,TOTAL Specimen Type: SERUM No comment entered. Ordering Provider: GIORGI BRARERA Report Released Date/Time: Oct 29, 2023 02:42 PM Reporting Lab: [facility] [address] [facility] [address] Performing Lab: [facility] [address] [facility] [address] PROTEIN,TOTAL 6.7 g/dL 6.0-8.3 Nov 13, 2023 12:21 PM [facility]N [facility]ITAL[facility] ALKALINE PHOSPHATASE Specimen Type: SERUM No comment entered. Ordering Provider: GIORGI BARRERA Report Released Date/Time: Oct 29, 2023 02:42 PM Reporting Lab: [facility] [address] [facility] [address] Performing Lab: [facility] [address] [facility] [address] ALKALINE PHOSPHATASE 85 U/L 40-150 Nov 13, 2023 12:21 PM [facility] RHEUMATOID FACTOR Specimen Type: SERUM No comment entered. Ordering Provider: GIORGI BARRERA Report Released Date/Time: Nov 13, 2023 12:08 PM Reporting Lab: [facility] [address] [facility] [address] Performing Lab: [facility] [address] [facility] [address] RHEUMATOID FACTOR 16 H 0-15 Social History: Smoking Status (Most current) and Tobacco Use (All prior to encounter date) This section includes the most current, and the historical, smoking and tobacco- related health factors from the [place] facility where the Encounter took place. Current Smoking Status This section includes the most current smoking, or tobacco-related health factor, from the [place] facility where the Encounter took place. Date/Time Current Smoking Status Comment Katty ity Aug 15, 2023 04:34 PM VA-TOBACCO USER EVERY DAY [facility] Tobacco Use History This section includes a history of the smoking, or tobacco-related health factors, that were collected on or before the date of the Encounter. The data comes from the [place] facility where the Encounter took place. Date/Time Smoking Status/Tobacco Use Comment F acility Aug 15, 2023 04:34 PM VA-TOBACCO USE > 1 5 LESS THAN 30 YEARS [facility]TR[facility] Aug 15, 2023 04:34 PM VA-TOBACCO USE ADVICE [facility] [place] [facility] Aug 15, 2023 04:34 PM VA-TOBACCO USE SUIT MAKER NO [facility] [place] [facility] Aug 15, 2023 04:34 PM VA-TOBACCO USE MED NO [facility] [place] [facility] Aug 15, 2023 04:34 PM VA-TOBACCO USER EVERY DAY [facility] Encounter Notes: All associated encounter notes This section contains the clinical notes associated to the Encounter. Date/Time Encounter Note(s) Provider Source Nov 26, 2023 01:00 PM MENTAL HEALTH COUNSELING NOTE: LOCAL TITLE: PEER SUPPORT NOTE STANDARD TITLE: MENTAL HEALTH COUNSELING NOTE DATE OF NOTE: NOV 26, 2023@13:00 ENTRY DATE: NOV 26, 2023@14:43:20 AUTHOR: ARLEN CARRIZALES COSIGNER: URGENCY: STATUS: COMPLETED PEER SUPPORT NOTE DATE: 11/26/2023 TIME: 1300 hours. TIME IN SESSION (in minutes): 30 minutes DIGITAL CONTENT MANAGER: Arlen Carrizales M.Ed. [facility] PURPOSE/FOCUS: Peer Support Service, 1:1 Peer Mentoring, [facility] DURATION: 30 minutes. CONTENT: Met with F2F walk in appointment 53-year-old male former IOP patient. Hecla need guidance and support changing his 1 to 1 clinician for individual reasons. Heavy Mobile Equipment Operator made recommendations of a couple choices and encouraged continuing therapy. reported being out of pain medication and has lost 55 pounds over the past 3 months. 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 Heavy Mobile Equipment Operator provided packet to fill out. INFORMED CONSENT: Hecla informed of the risks and benefits of Telehealth video care. Hecla has the right to refuse video services. If refuses video visit, a [id number] visit will be scheduled. Hecla verbalized consent for this video visit: Yes PEER INTERVENTIONS USED: Mutuality, Motivational Interviewing, Recovery Coaching RESPONSE: Hecla concerned with continuing therapy OBSERVED STRENGTHS: is sincere in emotional wellness efforts. PLAN: as needed PROCEDURE: F2F Diagnoses: Alcohol dependence ([facility] [id number]) - Alcohol dependence, uncomplicated (ICD-10-CM F10.20) (Primary) Posttraumatic stress disorder ([facility] [id number]) - Post-traumatic stress disorder, unspecified (ICD-10-CM F43.10) /leticia/ ARLEN CARRIZALES Signed: 11/26/2023 14:51 ARLEN CARRIZALES CNTRL W[facility]N [facility]
--- OUTSIDE RECORDS SUMMARY | 2024-11-20 10:02 | XMS_ITS | Encounter Summary ---
Author Name [facility] [place] [facility] [place] Address [address] [place] [address] Care Team Providers Care Customer Associate Name Role Phone JAVI TYLER Primary Care [...] Travis's Name Patient's Relationship to Policy Travis [facility] [address] [facility] DIRE T CARE NON-B ILL 2024 [facility] [id number] JAVI MURGUIA PATIENT Selected Encounter This section includes the information on record at [place] for the Encounter. Date/Time Encounter Type Encounter Description Reason Provider Source Dec 18, 2023 11:00 AM OFFICE O/P EST HI 40 MIN PAIN CLINIC ICD-10-CM G89.21 Chronic pain due to trauma Sameera PERDOMO IHEverardo Encounter Template Text not used by [place] Assessments - Encounter Diagnoses This section includes the primary and secondary diagnoses documented for the Encounter. Date/Time Primary/Secondary Diagnosis Diagnosis Name Provider Source Dec 18, 2023 12:25 PM PRIMARY Chronic pain due to trauma MARIO PERDOMO [place] [facility] [place] [facility] Dec 18, 2023 12:25 PM SECONDARY Alcohol dependence, uncomplicated KUPFERSCHRANJITH, MARIO B [facility] Dec 18, 2023 12:25 PM SECONDARY Post-traumatic stress disorder, unspecified KUPFERSCHMID, MARIO [facility] Plan of Treatment: Future Appointments (+ 6 months) and Future Tests (+/- 45 days) The Plan of Treatment section includes future care activities for the patient from [facility] [place] [facility] This section includes future appointments and future orders which are active, pending or scheduled. Future Appointments This section includes appointments that were scheduled to occur 6 months from the date of the Encounter, up to a maximum of 20 appointments. The data comes from all [place] treatment facilities. Appointment Date/Time Appointment Type Appointme nt Facility Name Feb 18, 2024 02:45 PM AMBULATORY [facility] April 10, 2024 11:15 AM AMBULATORY - MEDIC[facility] May 25, 2024 02:00 PM [facility] - MED[facility] Social History: Smoking Status (Most current) and Tobacco Use (All prior to encounter date) This section includes the most current, and the historical, smoking and tobacco- related health factors from the [place] facility where the Encounter took place. Current Smoking Status This section includes the most current smoking, or tobacco-related health factor, from the [place] facility where the Encounter took place. Date/Time Current Smoking Status Comment Facil ity Aug 15, 2023 04:34 PM VA-TOBACCO USER EVERY DAY [facility] Tobacco Use History This section includes a history of the smoking, or tobacco-related health factors, that were collected on or before the date of the Encounter. The data comes from the [place] facility where the Encounter took place. 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 Date/Time Encounter Note(s) Provider Source Dec 18, 2023 11:41 AM ACCOUNTING OF DISCLOSURES NOTE: LOCAL TITLE: STATE PRESCRIPTION DRUG MONITORING PROGRAM STANDARD TITLE: ACCOUNTING OF DISCLOSURES NOTE DATE OF NOTE: DEC 18, 2023@11:41:35 ENTRY DATE: DEC 18, 2023@11:41:35 AUTHOR: MARIO PERDOMO EXP COSIGNER: URGENCY: STATUS: COMPLETED This PDMP query was submitted by Mario Perdomo MD. The clinical justification for this PDMP query is to review controlled substances prescribed outside of the [facility], and any additional information that may become available, as an important component of standard clinical care, and in accordance with [facility] policy. Patient information was shared with the PDMP [facility] [place]. No prescription(s) for controlled substances outside the [facility] were found in the last 90 days. 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 11/22/2023 3 11/22/2023 Oxycodone Hcl (Ir) 5 Mg Tablet 112.00 28 Se [facility] [id number] [place] (4904) 0/0 30.00 M[place] /[place] 11/22/2023 3 11/22/2023 Buprenorphine 2 Mg Tablet Sl 60.00 30 [address] [facility] [id number] N[place] (4904) 0/1 4.00 mg /[place] 10/24/2023 3 10/23/2023 Oxycodone Hcl (Ir) 5 Mg Tablet 112.00 28 Se [place] [id number] N[place] (4904) 0/0 30.00 MME /[place] 10/24/2023 3 09/12/2023 Buprenorphine 2 Mg Tablet Sl 60.00 30 [address] [facility] [id number] [place] (4904) 1/ 4.00 mg /[place] 10/24/2023 3 10/24/2023 Diazepam 5 Mg Tablet 15.00 5 Se [facility] [id number] [place] (4904[place] 0/0 /[place] 09/13/2023 3 09/12/2023 Buprenorphine 2 Mg Tablet Sl 60.00 30 Se [facility] [id number] [place] (4904) 0/1 4.00 mg /[place] 09/13/2023 3 09/12/2023 Oxycodone Hcl (Ir) 5 Mg Tablet 120.00 30 Se [facility] [id number] [place] (4904[place] 0/0 30.00 MME /[place] 08/26/2023 3 08/26/2023 Oxycodone Hcl (Ir) 5 Mg Tablet 32.00 28 Se [facility] [id number] [place] (4904) 0/0 8.57 MME /[place] 07/24/2023 3 07/22/2023 Oxycodone Hcl (Ir) 5 Mg Tablet 32.00 28 [address] [facility] [id number] [place] (4904) 0/0 8.57 MME /[place] 07/05/2023 2 07/05/2023 Alprazolam 1 Mg Tablet 1.00 1 De Julio [id number] [facility] (4113) 0/0 Comm Ins [place] 07/03/2023 3 07/01/2023 Belbuca 900 Mcg Film 90.00 30 Se [facility] [id number] [place] (4904) 0/1 2.70 mg /[place] 07/02/2023 3 07/01/2023 Oxycodone Hcl (Ir) 5 Mg Tablet 32.00 28 Se [facility] [id number] [place] (4904) 0/0 8.57 MME /[place] 06/28/2023 2 06/28/2023 Testosterone Cyp 200 Mg/ml 2.00 14 Al Phong [id number] [facility] (4113) 0/5 Comm Ins [place] 05/30/2023 3 05/17/2023 Oxycodone Hcl (Ir) 5 Mg Tablet 48.00 28 Se [facility] [id number] [place] (4904) 0/0 12.86 MME /[place] 05/02/2023 3 04/19/2023 Oxycodone Hcl (Ir) 5 Mg Tablet 48.00 28 Se [facility] [id number] [place] (4904) 0/0 12.86 MME /[place] 04/09/2023 2 04/09/2023 Zolpidem Tartrate 10 Mg Tablet 30.00 30 Vielka Bettina [id number] [facility] (4113) 0/0 [place] 04/05/2023 3 04/05/2023 Oxycodone Hcl (Ir) 5 Mg Tablet 48.00 28 Se [place] [id number] [place] (4904[place] 0/0 12.86 [place] 03/27/2023 2 03/27/2023 Testosterone Cyp 200 Mg/ml 2.00 35 Al Phong [id number] [facility] (4113) 0/5 [place] 12/27/2022 2 07/19/2022 Zolpidem Tartrate 10 Mg Tablet 30.00 30 Vielka Bettina [id number] [facility] (4113) 2/3 [place] 11/09/2022 2 06/13/2022 Testosterone Cyp 200 Mg/ml 4.00 28 Al Phong [id number] [facility] (4113) 1/3 [place] 10/24/2022 2 07/19/2022 Zolpidem Tartrate 10 Mg Tablet 30.00 30 Vielka Bettina [id number] [facility] (4113) 1/3 [place] 10/22/2022 2 10/18/2022 Chlordiazepoxide 25 Mg Capsule 8.00 4 Kr Fle [id number] [facility] (4113) 0/0 [place] 09/03/2022 2 09/03/2022 Oxycodone-Acetaminophen 10-325 14.00 3 De Julio [id number] [facility] (4113) 0/0 70.00 [place] 08/26/2022 2 06/13/2022 Testosterone Cyp 200 Mg/ml 4.00 28 Al Phong [id number] [facility] (4113) 0/3 [place] 07/21/2022 1 07/02/2022 Oxycodone Hcl (Ir) 10 Mg Tab 90.00 [facility] [id number] ([facility]113[facility] 0/0 45.00 [place] 07/19/2022 1 07/19/2022 Zolpidem Tartrate 10 Mg Tablet 30.00 30 Vielka Bettina [id number] [facility] (4113) 0/3 [place] 06/21/2022 1 05/31/2022 Oxycodone Hcl (Ir) 10 Mg Tab 90.00 30 [facility] [id number] [facility] (4113) 0/0 45.00 MME [place] 06/15/2022 1 06/13/2022 Testosterone Cyp 200 Mg/ml 4.00 28 Al Phong [id number] [facility] (4113) 0/5 [place] 05/22/2022 1 05/02/2022 Oxycodone Hcl (Ir) 10 Mg Tab 90.00 30 [facility] [id number] (4113) 0/0 45.00 [place] 04/21/2022 1 04/06/2022 Oxycodone Hcl (Ir) 10 Mg Tab 90.00 30 [facility] [id number] (4113) 0/0 45.00 MME [place] 03/22/2022 1 03/08/2022 Oxycodone Hcl (Ir) 10 Mg Tab 90.00 30 Ol Buc [id number] [facility] (4113) 0/0 45.00 [place] 02/22/2022 1 10/16/2021 Zolpidem Tartrate 10 Mg Tablet 30.00 30 Vielka Bettina [id number] [facility] (4113) 1/3 [place] 02/21/2022 1 02/21/2022 Oxycodone Hcl (Ir) 10 Mg Tab 90.00 30 [facility] [id number] [facility] (4113) 0/0 45.00 [place] 01/21/2022 1 01/10/2022 Oxycodone Hcl (Ir) 10 Mg Tab 90.00 30 [facility] [id number] [facility] (4113) 0/0 45.00 [place] 12/22/2021 1 12/13/2021 Oxycodone Hcl (Ir) 10 Mg Tab 90.00 30 [facility] [id number] (4113) 0/0 45.00 [place] // MARIO PERDOMO MD PHYSICIAN Signed: 12/18/2023 12:25 MARIO PERDOMO [place] [facility] [place] [facility] Dec 18, 2023 11:06 AM PAIN MEDICINE OUTPATIENT NOTE: LOCAL TITLE: PAIN CLINIC NOTE STANDARD TITLE: PAIN MEDICINE OUTPATIENT NOTE DATE OF NOTE: DEC 18, 2023@11:06 ENTRY DATE: DEC 18, 2023@11:07:01 AUTHOR: MARIO PERDOMO EXP COSIGNER: URGENCY: STATUS: COMPLETED CURRENT ======= Got rating 100% on Saturday. [facility] for steroid injections to shoulders and knees. Alcohol: A few shots here and there. 2-3 shots at night to take the edge off, relaxes me. I go a few days without drinking. I won't drink when she is around. Seeing son almost daily again. 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 They are assholes out to get people. Getting up in the morning is hard, Pain, cloudiness in the head. It is like I atrophied overnight. PCP at [facility], Jose Fried PAIN-RELATED MEDICATIONS Belbuca prescribed 10/2021 Oxycodone Paroxetine 40 mg Quetiapine 50-150 mg qhs Testosterone Amitriptyline 25 mg, Zolpidem - caused sleep walking PAIN-RELATED CONDITIONS Dual Care: PCP and Ortho Cervical and lumbar spine issues Right shoulder worse than left Knees Alcohol use disorder, [place] [facility] November 12 to Dec 30, 2022. 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 Conditions include chronic pain, AUD in remission (10/2023), PTSD, sleep apnea, asthma, low testosterone, HTN. 12/18/2023 Risk of decompensation. ALCOHOL: Likely minimizing. Discussed at length self-mediating, stakes with son and GF, benefit of reducing (stopping better).Labs reviewed with , consistent with alcohol use. SLEEP: Quetiapine helpful. Increase to 100 mg qhs. PAIN: Increase Suboxone to 2 mg tid to see if this takes off more of the edge, is able to reduce alcohol. Uses oxycodone 5 mg bid, less than prescribed. PTSD: Did not like sessions with Dr. Villanueva, It was just reading from a manual. Says meeting with Don (Peer Support)are helpful. [facility] just [facility] session. Encouraged need to continue treatment. He said PTSD messes with the thinking. ORTHOSTATIC EPISODES: resolved. NUTRITION: Reports he is eating better, albumin likely improved from 3.1. ENDOCRINE: Testosterone from Urologist TRANSITION: Discussed stress of snf, loss of structure and mission. Thank you for giving a shit. Not many people do. 11/15/2023 Trying to appear stable Minimizes recent events. Ongoing complaint of apparent orthostatic dizziness -F/U with PC Letter for work Short ETOH relapse Working with Jammie Villanueva for MH Continue plan below with close f/u EMPOWERED RELIEF FOLLOW UP Class date: 06/25/2023 Not doing as much. Binaural/guided relaxation listening: every 2-3 days Encourage maintaining the 3 parts of the class -NEEDS encouragement for PE work with Dr. Villanueva ENDOCRINE Hypotestosterone INITIAL GOALS -Less pain -Better sleep with fewer nightmares [facility] and I formulated the plan through shared medical-decision making. repeated the plan back to me and had no further questions at end of appointment. APPOINTMENT LENGTH [ ] 20-29 minutes [ ] 30-39 minutes [x] 40 or more minutes FOLLOW-UP [x] 4 weeks [ ] 6 weeks [ ] 8 weeks [ ] 01/07/2024 10:00 COM CARE-NEUROLOGY 01/13/2024 11:00 CWM/NO/VVC/MHC/CLP2 05/11/2024 10:30 CWM/NO/PACT 7 MEDICATION and RECONCILIATION === Active and Recently Outpatient Medications (including Supplies): Active Outpatient Medications Status 1) BUPRENORPHINE HCL 2MG SUBLINGUAL TAB DISSOLVE ONE ACTIVE TABLET UNDER THE TONGUE EVERY 12 HOURS Yes 2) CETIRIZINE HCL 10MG TAB TAKE ONE TABLET BY MOUTH ONCE ACTIVE (S) DAILY FOR ALLERGIES 3) OXYCODONE HCL 5MG TAB NOT SA TAKE ONE TABLET BY ACTIVE MOUTH FOUR TIMES A DAY NEXT FILL 12/20 Yes 4) PAROXETINE HCL 40MG TAB TAKE ONE TABLET BY MOUTH ONCE ACTIVE (S) DAILY Yes 5) QUETIAPINE FUMARATE 50MG TAB TAKE ONE TABLET BY MOUTH ACTIVE AT BEDTIME NEEDED FOR SLEEP Yes 6) SILDENAFIL CITRATE 100MG TAB TAKE ONE TABLET BY MOUTH ACTIVE ONCE DAILY TAKE 1 HOUR PRIOR TO SEXUAL ACTIVITY Inactive Outpatient Medications Status 1) DIAZEPAM 5MG TAB TAKE ONE TABLET BY MOUTH THREE TIMES DAILY NEEDED FOR ANXIETY/NERVES 2) MED ORGANIZER 7DAY/4 SLOT EARLY#[id number] USE 1 ORGANIZER DIRECTED ONCE DAILY 3) ONDANSETRON HCL 4MG TAB TAKE ONE TABLET BY MOUTH FOUR TIMES DAILY NEEDED FOR NAUSEA AND VOMITING Active Non-VA Medications Status 1) Non-VA ALBUTEROL 90MCG (CFC-F) 200D ORAL INHL 2 PUFFS ACTIVE BY MOUTH EVERY 4 HOURS 2) Non-VA AMLODIPINE BESYLATE 5MG TAB 5MG BY MOUTH ONCE ACTIVE DAILY 3) Non-VA ATORVASTATIN CALCIUM 40MG TAB 20MG BY MOUTH ACTIVE ONCE DAILY 4) Non-VA CYCLOBENZAPRINE HCL TAB 7.5MG BY MOUTH THREE ACTIVE TIMES A DAY 5) Non-VA FLUTICASONE/SALMETEROL (WIXELA) INHL,ORAL 1 ACTIVE PUFF FLUTICAS 250/SALMETEROL 50 INHL DISK 60 BY MOUTH TWICE DAILY 6) Non-VA MAGNESIUM OXIDE TAB BY MOUTH ACTIVE 7) Non-VA [id number] ETHYL ESTERS 1000MG CAP 1000MG BY ACTIVE MOUTH TWICE DAILY 8) Non-VA OMEPRAZOLE 20MG EC CAP 40MG BY MOUTH EVERY ACTIVE MORNING 30 MINUTES BEFORE BREAKFAST 9) Non-VA POTASSIUM CHLORIDE 10MEQ SA TAB 20MEQ BY MOUTH ACTIVE ONCE DAILY 10) Non-VA TERAZOSIN HCL 10MG CAP 10MG BY MOUTH ONCE ACTIVE DAILY 11) Non-VA TESTOSTERONE CYPIONATE PA-F INJ,SOLN ACTIVE INTRAMUSCULARLY 12) Non-VA TIOTROPIUM 1.25MCG/ACTUAT 60D ORAL INHL 2 ACTIVE PUFFS BY MOUTH ONCE DAILY 21 Total Medications ACTIVE PROBLEMS Active problems - Computerized Problem List is the source for the followin. Exposure to potentially hazardous substance 2. Erectile Dysfunction ([facility] [id number]) 3. Neck Pain ([facility] [id number]) 4. Pain of Right Knee ([facility] [id number]) 5. Shoulder Pain ([facility] [id number]) 6. Low testosterone 7. GERD - Gastro-Esophageal Reflux Disease ([facility] [id number]) 8. Headache ([facility] [id number]) 9. Allergic Rhinitis ([facility] [id number]) 10. Concussion with loss of consciousness 11. Asthma ([facility] [id number]) 12. SAS - Sleep apnoea syndrome 13. Chronic pain 14. Alcohol dependence 15. Tobacco abuse 16. Posttraumatic stress disorder === Date Instrument Raw Trans Scale 09/24/2023 14:17 PHQ9 8 PHQ9 06/11/2023 14:49 PHQ9 9 PHQ9 Appointment length includes time with , making plan with shared medical decision making, education and counseling, completing clinical reminders, reviewing relevant information in EMR, review of PDMP, ordering appropriate tests, prescribing medications, coordinating care, and completing the medical record. [place] [facility] ([facility]) Standard Documentation [facility] Clinician Resources Only: E911 (Emergency Call Relay Center): [phone] National Veterans Crisis Line - 988 then press #1. [facility] Suicide Coordinator [phone], Ext. [phone]; Back-up Ext. [phone] [place] Police, Missael LEONARD [phone] Introduction: Visit is being conducted by [place] [facility]. [facility] identified with 2 identifiers: [X] Full Name [X] Date of [ ] VA ID Card Emergency Plan: [facility] confirmed and/or provided the following information in case of emergency or technology failure. PATIENT PHONE - PHONE NUMBER [CELLULAR] - Is patient phone number correct, if not, enter below: [facility]'s phone number: JAVI NOLAN MARISOL [address] [place] [address], [phone] [facility]'s present location and address for appointment: Home 's emergency contact name and phone number: Listed reported that location is private and safe: Yes Informed Consent: informed of the risks and benefits of Telehealth video care. [facility] has the right to refuse video services. If refuses video visit, a [id number] visit will be scheduled. [facility] verbalized consent for this video visit: Yes [facility] provided consent for any other persons present for visit: No If yes, who and relationship to patient: Secure visit: Visit was locked for security and privacy:Yes /leticia/ MARIO PERDOMO MD PHYSICIAN Signed: 12/18/2023 12:25 MARIO PERDOMO [place] [facility]
--- OUTSIDE RECORDS SUMMARY | 2024-11-20 10:02 | XMS_ITS ---
Author Name [facility] Organization [facility] Address [address] [place] [address] Care Team Providers Care [employer] Director Name Role Phone JAVI TYLER Primary [...] Travis's Name Patient's Relationship to Policy Travis [facility] [address] [facility] CARE NON-B ILL 2024 [facility] [id number] JAVI MURGUIA PATIENT Selected Encounter This section includes the information on record at MD for the Encounter. Date/Time Encounter Type Encounter Description Reason Pro vider Source Nov 20, 2023 03:49 PM Outpatient Encounter ADMIN PAT ACTIVTIES (MASNONCT) IHE Encounter Template Text not used by MD Plan of Treatment: Future Appointments (+ 6 [...] 20 appointments. The data comes from all MD treatment facilities. Appointment Date/Time Appointment Type Appointme nt Facility Name Dec 03, 2023 01:00 PM AMBULAT[facility] Dec 18, 2023 11:00 AM AMBUL[facility] - MEDICINE [facility] Feb 18, 2024 02:45 PM AMBULAT[facility] - MEDICINE [facility] April 10, 2024 11:15 AM AMBULATORY - MEDICINE [facility] Lab Results: +/- 30 days of the encounter This section includes the Chemistry and Hematology Lab Results on record with MD for the patient. Radiology Reports and Pathology Reports are provided separately, in subsequent sections. Lab Results This section contains the Chemistry/Hematology Results that were resulted 30 days before or 30 daysafter the date of the Encounter. Date/Time Source Result Type Result - Unit Interpretation Reference Range Comment Nov 13, 2023 12:22 PM [facility] ALBUMIN Specimen Type: SERUM No comment entered. Ordering Provider: GIORGI BARRERA Report Released Date/Time: Oct 29, 2023 02:42 PM Reporting Lab: [address] [address] Performing Lab: [address] [address] ALBUMIN 3.1 g/dL L 3.5-5.0 Nov 13, 2023 12:22 PM [facility] PT & INR (PROTIME) Specimen Type: PLASMA No comment entered. Ordering Provider: GIORGI BARRERA Report Released Date/Time: Oct 29, 2023 02:42 PM Reporting Lab: [address] [address] Performing Lab: [address] [address] INR 1.1 PROTIME 12.8 s 10.0-13.1 Nov 13, 2023 12:21 PM [facility] FOLATE Specimen Type: SERUM No comment entered. Ordering Provider: GIORGI BARRERA Report Released Date/Time: Oct 29, 2023 02:42 PM Reporting Lab: [facility] [address] [facility] [address] Performing Lab: [facility] [address] [facility] [address] FOLATE 7.37 ng/mL >5.2 Nov 13, 2023 12:21 PM [facility] THYROID T4 FREE(FT4) Specimen Type: SERUM No comment entered. Ordering Provider: GIORGI BARRERA Report Released Date/Time: Oct 29, 2023 02:42 PM Reporting Lab: [facility] [address] [facility] [address] Performing Lab: [facility] [address] [facility] [address] THYROID T4 FREE(FT4) 0.87 ng/dL 0.6-1.6 Nov 13, 2023 12:21 PM [facility] HEPATITIS B CORE (Total) Ab Specimen [...] Oct 29, 2023 02:42 PM Reporting Lab: [facility] [address] [facility] [address] Performing Lab: [address] [address] HEPATITIS B CORE (Total) Ab Non Reactive Non Reactive Nov 13, 2023 12:21 PM [facility] SYPHILIS ABS W/RFLX Specimen Type: SERUM Comment: No laboratory evidence of syphilis infection. If recent exposure is suspected, re-draw sample in 2-4 weeks and repeat algorithm. Testing performed by T. pallidum specific immunoassay. Ordering Provider: GIORGI BARRERA Report Released Date/Time: Oct 29, 2023 02:42 PM Reporting Lab: [facility] [address] [facility] [address] Performing Lab: [facility] [address] [facility] [address] SYPHILIS ABS W/RFLX Non Reactive Non Reactive Nov 13, 2023 12:21 PM [facility] RORY SCREEN/TITER Specimen Type: SERUM No comment entered. Ordering Provider: GIORGI BARRERA Report Released Date/Time: Oct 29, 2023 02:42 PM Reporting Lab: [facility] [address] [facility] [address] Performing Lab: [facility] [address] [facility] [address] RORY SCREEN NEG Nov 13, 2023 12:21 PM [facility] HEPATITIS C ANTIBODY (HCV)-ARC Specimen Type: SERUM Comment: Hep C Ab: No HCV antibody detected. If recent infection is suspected or other evidence suggests HCV infection, consider HCV nucleic acid testing Ordering Provider: GIORGI BARRERA Report Released Date/Time: Oct 29, 2023 02:42 PM Reporting Lab: [facility] [address] [facility] [address] Performing Lab: [facility] [address] [facility] [address] HEPATITIS C ANTIBODY NON-REACTIVE NON-REACTIV E Nov 13, 2023 12:21 PM [facility] VITAMIN B12 Specimen Type: SERUM No comment entered. Ordering Provider: GIORGI BARRERA Report Released Date/Time: Oct 29, 2023 02:42 PM Reporting Lab: [facility] [address] [facility] [address] Performing Lab: [facility] [address] [facility] [address] VITAMIN B12 727 pg/mL 200-900 Nov 13, 2023 12:21 PM [facility] MAGNESIUM Specimen Type: SERUM No comment entered. Ordering Provider: GIORGI BARRERA Report Released Date/Time: Oct 29, 2023 02:42 PM Reporting Lab: [facility] [address] [address] Performing Lab: [facility] [address] MAGNESIUM 1.9 mg/dL 1.6-2.6 Nov 13, 2023 12:21 PM [facility] VITAMIN D (25-OH) Specimen Type: SERUM No comment entered. Ordering Provider: GIORGI BARRERA Report Released Date/Time: Oct 29, 2023 02:42 PM Reporting Lab: [facility] [address] [address] Performing Lab: [address] [address] VITAMIN D (25-OH) 21 ng/mL 20-50 Nov 13, 2023 12:21 PM [facility] TSH Specimen Type: SERUM No comment entered. Ordering Provider: GIORGI BARRERA Report Released Date/Time: Oct 29, 2023 02:42 PM Reporting Lab: [facility] [address] [address] Performing Lab: [facility] [address] [address] TSH 2.83 u[IU]/mL 0.35-5.00 Nov 13, 2023 12:21 PM [facility] PSA Specimen Type: SERUM No comment entered. Ordering Provider: GIORGI BARRERA Report Released Date/Time: Oct 29, 2023 02:42 PM Reporting Lab: [facility] [address] [address] Performing Lab: [facility] [address] [address] PSA 0.55 ng/mL 0.00-4.00 Nov 13, 2023 12:21 PM [facility] CBC AND DIFF (AUTO) Specimen Type: BLOOD No comment entered. Ordering Provider: GIORGI BARRERA Report Released Date/Time: Oct 29, 2023 02:42 PM Reporting Lab: [address] [address] Performing Lab: [address] [address] WBC 7.73 10*3/uL 4.50-11.00 RBC 4.05 10*6/uL L 4.23-5.66 HGB 12.8 g/dL 12.8-17 HCT 39.1 L 39.2-50.4 MCV 96.5 fL 82-99 MCHC 32.7 g/dL 30.8-35.1 PLT 439 10*3/uL H 140-360 RDW-CV 13.2 12.0-16.0 [place], Abs 0.82 10*3/uL 0.30-1.10 MCH 31.6 pg 26.2-32.6 Neut % 66.2 43.7-75.8 Lymph % 17.2 14.0-42.3 [place] % 10.6 5.1-13.7 Eos % 4.9 0.4-6.8 Baso % 0.5 0.1-2.0 Neut, Abs 5.11 10*3/uL 2.20-7.60 Lymph, Abs 1.33 10*3/uL 1.00-3.20 Eos, Abs 0.38 10*3/uL 0.03-0.44 Baso, Abs 0.04 10*3/uL 0.01-0.13 Immature Gran % 0.6 0.0-0.7 Immature Gran, Abs 0.05 10*3/uL 0.00-0.06 Nov 13, 2023 12:21 PM [facility] BASIC METABOLIC PANEL (non-fasting) Specimen Type: SERUM No comment entered. Ordering Provider: GIORGI BARRERA Report Released Date/Time: Oct 29, 2023 02:42 PM Reporting Lab: [address] [address] Performing Lab: [facility] [address] [address] UREA NITROGEN 8 mg/dL 7-25 GLUCOSE 81 mg/dL 65-100 SODIUM 139 mmol/L 135-145 POTASSIUM 3.9 mmol/L 3.5-5.0 CHLORIDE 101 mmol/L 100-110 CO2 27 meq/L 20-30 CREATININE, Serum 0.85 mg/dL 0.50-1.40 eGFR(CKD-EPI 2020) >90 mL/min >60 Nov 13, 2023 12:21 PM [facility] FERRITIN Specimen Type: SERUM No comment entered. Ordering Provider: GIORGI BARRERA Report Released Date/Time: Oct 29, 2023 02:42 PM Reporting Lab: [address] [address] Performing Lab: [address] [address] FERRITIN 427 ng/mL H 20-300 Nov 13, 2023 12:21 PM [facility] LIVER FUNCTION Specimen Type: SERUM No comment entered. Ordering Provider: GIORGI BARRERA Report Released Date/Time: Oct 29, 2023 02:42 PM Reporting Lab: [address] [address] Performing Lab: [address] [address] PROTEIN,TOTAL 6.7 g/dL 6.0-8.3 ALBUMIN 3.1 g/dL L 3.5-5.0 ALKALINE PHOSPHATASE 85 U/L 40-150 AST 37 U/L H 5-34 ALT 26 U/L BILIRUBIN, TOTAL 0.4 mg/dL 0.2-1.2 Nov 13, 2023 12:21 PM [facility] GAMMA-GTP Specimen Type: SERUM No comment entered. Ordering Provider: GIORGI BARRERA Report Released Date/Time: Oct 29, 2023 02:42 PM Reporting Lab: [address] [address] Performing Lab: [address] [place] [address] GAMMA-GTP 81 U/L H 10-65 Nov 13, 2023 12:21 PM [facility] IRON & TIBC PANEL Specimen Type: SERUM No comment entered. Ordering Provider: GIORGI BARRERA Report Released Date/Time: Oct 29, 2023 02:42 PM Reporting Lab: [facility] [address] [address] Performing Lab: [facility]N [facility] [address] [address] TIBC 249 ug/dL 204-475 IRON 54 ug/dL 40-160 Transferrin Saturation 21.6 20.0-50.0 Nov 13, 2023 12:21 PM [facility] ALBUMIN Specimen Type: SERUM No comment entered. Ordering Provider: GIORGI BARRERA Report Released Date/Time: Oct 29, 2023 02:42 PM Reporting Lab: [facility] [address] [address] Performing Lab: [facility] [address] [address] ALBUMIN 3.1 g/dL L 3.5-5.0 Nov 13, 2023 12:21 PM [facility] PROTEIN,TOTAL Specimen Type: SERUM No comment entered. Ordering Provider: GIORGI BARRERA Report Released Date/Time: Oct 29, 2023 02:42 PM Reporting Lab: [facility]N [facility] [address] [address] Performing Lab: [facility] [address] [address] PROTEIN,TOTAL 6.7 g/dL 6.0-8.3 Nov 13, 2023 12:21 PM [facility] ALKALINE PHOSPHATASE Specimen Type: SERUM No comment entered. Ordering Provider: GIORGI BARRERA Report Released Date/Time: Oct 29, 2023 02:42 PM Reporting Lab: [facility] [address] [address] Performing Lab: [place] [facility] [place] [facility] [address] [facility] [address] ALKALINE PHOSPHATASE 85 U/L 40-150 Nov 13, 2023 12:21 PM [facility] [place] [facility] RHEUMATOID FACTOR Specimen Type: SERUM No comment entered. Ordering Provider: GIORGI BARRERA Report Released Date/Time: Nov 13, 2023 12:08 PM Reporting Lab: [facility] [place] [facility] [address] [facility] [address] Performing Lab: [facility] [place] [facility] [address] [facility] [address] RHEUMATOID FACTOR 16 H 0-15 Social History: Smoking Status (Most current) and Tobacco Use (All prior to encounter date) This section includes the most current, and the historical, smoking and tobacco- related health factors from the MD facility where the Encounter took place. Current Smoking Status This section includes the most current smoking, or tobacco-related health factor, from the MD facility where the Encounter took place. Date/Time Current Smoking Status Comment Katty ity Aug 15, 2023 04:34 PM VA-TOBACCO USER EVERY DAY [facility] Tobacco Use History This section includes a history of the smoking, or tobacco-related health factors, that were collected on or before the date of the Encounter. The data comes from the MD facility where the Encounter took place. 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 Date/Time Encounter Note(s) Provider Source Nov 20, 2023 03:49 PM PHARMACY NOTE: LOCAL TITLE: V1 PHARMACY CUSTOMER CARE MEDICATION RENEWAL STANDARD TITLE: PHARMACY NOTE DATE OF NOTE: NOV 20, 2023@15:49 ENTRY DATE: NOV 20, 2023@15:49:44 AUTHOR: ZACKERY FRAZIER COSIGNER: URGENCY: STATUS: COMPLETED Date: Nov Division: [facility] referred by Pharmacy Call Center for medication renewal: Controlled substance Medications requested: [id number] OXYCODONE HCL 5MG TAB NOT SA Defer to specialty clinic To be mailed . Please review and renew if appropriate. *This note was generated by [facility] Customer [facility]. If you have any questions or need assistance, do not contact this author. Please refer all questions to your local, on-site pharmacy departments. /leticia/ ZACKERY FRAZIER CPhT [place], [place]/Pharmacy Customer Care Signed: 11/20/2023 15:50 Receipt Acknowledged By: 11/22/2023 14:05 /leticia/ PHILIPPE WALLACE MD PHYSICIAN ZACKERY FRAZIER [facility]
--- OUTSIDE RECORDS SUMMARY | 2024-11-20 10:03 | XMS_ITS | Encounter Summary ---
Author Name [facility] [place] Organization [facility] [place] Address [address] [place] [address] Care Team Providers Care Fly Rail Operator Name Role Phone JAVI TYLER Primary [...] Travis's Name Patient's Relationship to Policy Travis [address] T CARE NON-B ILL 2024 [facility] [id number] JAVI MURGUIA PATIENT Selected Encounter This section includes the information on record at [place] for the Encounter. Date/Time Encounter Type Encounter Description Reason Provider Source Jun 03, 2024 10:47 AM [facility] IVNTJ INDIV TELEPHONE/MEDICIN E ICD-10-CM F10.20 Alcohol dependence, uncomplicated LISA SCHERER Everardo Encounter Template Text not used by [place] Assessments - Encounter Diagnoses This section includes the primary and secondary diagnoses documented for the Encounter. Date/Time Primary/Secondary Diagnosis Diagnosis Name Provider Source Jun 03, 2024 10:47 AM PRIMARY Alcohol dependence, uncomplicated LISA SCHERER [place] [facility] [place] [facility] Jun 03, 2024 10:47 AM SECONDARY Post-traumatic stress disorder, unspecified LISA SCHERER [facility] [place] [facility] Plan of Treatment: Future Appointments (+ 6 months) and Future Tests (+/- 45 days) The Plan of Treatment section includes future care activities for the patient from all [place] [facility] This section includes future appointments and future orders which are active, pending or scheduled. Future Appointments This section includes appointments that were scheduled to occur 6 months from the date of the Encounter, up to a maximum of 20 appointments. The data comes from all [place] treatment facilities. Appointment Date/Time Appointment Type Appointme nt Facility Name Jul 16, 2024 09:00 AM AMBULATORY - MEDICINE [facility] [place] [facility] Jul 20, 2024 11:30 AM AMBULATORY - MEDICINE [facility] [place] [facility] Aug 20, 2024 11:30 AM AMBULATORY - MEDICINE [facility] [place] [facility] Sep 07, 2024 10:00 AM AMBULATORY - MEDICINE [facility] [place] [facility] Oct 09, 2024 09:30 AM AMBULATORY - MEDICINE [facility] [place] [facility] Oct 15, 2024 04:00 PM AMBULATORY - REHAB MEDICIN E [facility] [place] [facility] Oct 27, 2024 01:00 PM AMBULATORY - PSYCHIATRY [facility] [place] [facility] Oct 28, 2024 10:00 AM AMBULATORY - MEDICINE [facility] [place] [facility] Nov 17, 2024 02:45 PM AMBULATORY - MEDICINE [facility] [place] [facility] Nov 20, 2024 10:30 AM AMBULATORY - NONE [facility] [place] [facility] Nov 26, 2024 02:00 PM AMBULATORY - PSYCHIATRY [facility] [place] [facility] Dec 02, 2024 11:00 AM AMBULATORY - MEDICINE [facility] [place] [facility] Dec 03, 2024 02:00 PM AMBULATORY - PSYCHIATRY [place] [facility] Social History: Smoking Status (Most current) [...] VA-TOBACCO USER EVERY DAY [place] [facility] Tobacco Use History This section includes [...] THAN 30 YEARS [facility] [place] [facility] Aug 15, 2023 04:34 PM VA-TOBACCO USE ADVICE [facility] [place] [facility] Aug 15, 2023 04:34 PM VA-TOBACCO USE BAG PRESSER NO [facility] [place] [facility] Aug 15, 2023 04:34 PM VA-TOBACCO USE MED NO [facility] [place] [facility] Aug 15, 2023 04:34 PM VA-TOBACCO USER EVERY DAY [place] [facility] [facility] Encounter Notes: All associated encounter notes This section contains the clinical notes associated to the Encounter. Date/Time Encounter Note(s) Provider Source Jun 15, 2024 04:46 PM ADDENDUM: LOCAL TITLE: Addendum STANDARD TITLE: ADDENDUM DATE OF NOTE: JUN 15, 2024@16:46:34 ENTRY DATE: JUN 15, 2024@16:46:34 AUTHOR: BRIE COTTRELL EXP COSIGNER: URGENCY: STATUS: COMPLETED Please call to establish care at [place] /leticia/ BRIE COTTRELL TIN TIE MACHINE OPERATOR AUTOMATIC EMILEE Signed: 06/15/2024 16:47 Receipt Acknowledged By: 06/26/2024 15: /leticia/ PINA DRUMMOND MSN Ed., BSN DIGITAL ADVISOR NURSE ====== --- Original Document --- 06/03/24 OEF-OIF CM SOCIAL WORK NOTE: Normandy and senior medical writer connected via telephone. reports that he was told that he medically retrieved last month, but he is unsure and has not been able to get any paperwork stating this. Mutuel Department Manager reached out to VA/DOD liaison, and was able to obtain DD214 and PDRL paperwork, which was forwarded to E&E to update his PG. Normandy reports a desire to establish primary care at the [facility], and senior medical writer will assist with this. Normandy reports that he has been doing well with his drinking, but did not provide any further detail about quantity and frequency. Normandy reports to no longer be seeing former VA MH provider, but is interested in engaging in counseling service with someone new. reports being stressed out about finances, and is looking forward to his VA rating finalizing. Mutuel Department Manager explained that he was not referred to [facility] following his last activation, but that he can take his documents to [facility] and be able to get matched by VA for his DOD rating, which is indicated to be 100%. Mutuel Department Manager provided with Win Cardenas [facility] information, and encouraged him to schedule an appointment GIUSEPPE. Once we know when laila's [facility] appointment will take place, we will meet same day, so as to avoid travel for him, for further assessment and referral. Normandy with no unresolved questions or concerns, has senior medical writer's contact information should he need anything prior to our meeting. Suicide Screen: C-SSRS Screening [place]-Suicide Severity Rating Scale (C-SSRS Screener) 1. Over the past month, have you wished you were or wished you could go to sleep and not wake up? No 2. Over the past month, have you had any actual thoughts of killing yourself? No 3. Over the past month, have you been thinking about how you might do this? Response not required due to responses to other questions. 4. Over the past month, have you had these thoughts and had some intention of acting on them? Response not required due to responses to other questions. 5. Over the past month, have you started to work out or worked out the details of how to kill yourself? Response not required due to responses to other questions. 6. If yes, at any time in the past month did you intend to carry out this plan? Response not required due to responses to other questions. 7. In your lifetime, have you ever done anything, started to do anything, or prepared to do anything to end your life (for example, collected pills, obtained a gun, gave away valuables, went to the roof but didn't jump)? No 8. If YES, was this within the past 3 months? Response not required due to responses to other questions. /SEVEN Pardo LICENSED CLINICAL WILDLAND FIREFIGHTER Signed: 06/03/2024 11:29 06/03/2024 ADDENDUM STATUS: COMPLETED Normandy is requesting to establish care at the [facility]. Thank you in advance. /SEVEN Pardo LICENSED CLINICAL WILDLAND FIREFIGHTER Signed: 06/03/2024 11:36 Receipt Acknowledged By: 06/15/2024 16:46 /ashley COTTRELL TIN TIE MACHINE OPERATOR AUTOMATIC EMILEE [facility] [place] [facility] Jun 03, 2024 11:33 AM ADDENDUM: LOCAL TITLE: Addendum STANDARD TITLE: ADDENDUM DATE OF NOTE: JUN 03, 2024@11:33:49 ENTRY DATE: JUN 03, 2024@11:33:50 AUTHOR: JUAN PABLO SCHERER COSIGNER: URGENCY: STATUS: COMPLETED is requesting to establish care at the [facility]. Thank you in advance. /SEVEN Pardo LICENSED CLINICAL WILDLAND FIREFIGHTER Signed: 06/03/2024 11:36 Receipt Acknowledged By: 06/15/2024 16:46 /ashley COTTRELL TIN TIE MACHINE OPERATOR AUTOMATIC EMILEE ====== --- Original Document --- 06/03/24 OEF-OIF CM SOCIAL WORK NOTE: Normandy and senior medical writer connected via telephone. reports that he was told that he medically retrieved last month, but he is unsure and has not been able to get any paperwork stating this. Mutuel Department Manager reached out to VA/DOD liaison, and was able to obtain DD214 and PDRL paperwork, which was forwarded to E&E to update his PG. Laila reports a desire to establish primary care at the [facility], and senior medical writer will assist with this. Normandy reports that he has been doing well with his drinking, but did not provide any further detail about quantity and frequency. reports to no longer be seeing former VA MH provider, but is interested in engaging in counseling service with someone new. reports being stressed out about finances, and is looking forward to his VA rating finalizing. Mutuel Department Manager explained that he was not referred to [facility] following his last activation, but that he can take his documents to [facility] and be able to get matched by VA for his DOD rating, which is indicated to be 100%. Mutuel Department Manager provided laila with Win Cardenas [facility] information, and encouraged him to schedule an appointment GIUSEPPE. Once we know when laila's [facility] appointment will take place, we will meet same day, so as to avoid travel for him, for further assessment and referral. Normandy with no unresolved questions or concerns, has senior medical writer's contact information should he need anything prior to our meeting. Suicide Screen: C-SSRS Screening [place]-Suicide Severity Rating Scale (C-SSRS Screener) 1. Over the past month, have you wished you were or wished you could go to sleep and not wake up? No 2. Over the past month, have you had any actual thoughts of killing yourself? No 3. Over the past month, have you been thinking about how you might do this? Response not required due to responses to other questions. 4. Over the past month, have you had these thoughts and had some intention of acting on them? Response not required due to responses to other questions. 5. Over the past month, have you started to work out or worked out the details of how to kill yourself? Response not required due to responses to other questions. 6. If yes, at any time in the past month did you intend to carry out this plan? Response not required due to responses to other questions. 7. In your lifetime, have you ever done anything, started to do anything, or prepared to do anything to end your life (for example, collected pills, obtained a gun, gave away valuables, went to the roof but didn't jump)? No 8. If YES, was this within the past 3 months? Response not required due to responses to other questions. /leticia/ SEVEN Hoyt LICENSED CLINICAL WILDLAND FIREFIGHTER Signed: 06/03/2024 11:29 JUAN PABLO SCHERER [place] [facility] [place] [facility] Jun 03, 2024 10:47 AM OEF/OIF NOTE: LOCAL TITLE: OEF-OIF CM SOCIAL WORK NOTE STANDARD TITLE: OEF/OIF NOTE DATE OF NOTE: JUN 03, 2024@10:47 ENTRY DATE: JUN 03, 2024@10:47:12 AUTHOR: JUAN PABLO SCHERER COSIGNER: URGENCY: STATUS: COMPLETED OEF-OIF CM SOCIAL WORK NOTE Has ADDENDA Normandy and senior medical writer connected via telephone. Normandy reports that he was told that he medically retrieved last month, but he is unsure and has not been able to get any paperwork stating this. Mutuel Department Manager reached out to VA/DOD liaison, and was able to obtain DD214 and PDRL paperwork, which was forwarded to E&E to update his PG. Normandy reports a desire to establish primary care at the [facility], and senior medical writer will assist with this. Normandy reports that he has been doing well with his drinking, but did not provide any further detail about quantity and frequency. reports to no longer be seeing former VA MH provider, but is interested in engaging in counseling service with someone new. reports being stressed out about finances, and is looking forward to his VA rating finalizing. Mutuel Department Manager explained that he was not referred to [facility] following his last activation, but that he can take his documents to [facility] and be able to get matched by VA for his DOD rating, which is indicated to be 100%. Mutuel Department Manager provided with Win Cardenas [facility] information, and encouraged him to schedule an appointment GIUSEPPE. Once we know when 's [facility] appointment will take place, we will meet same day, so as to avoid travel for him, for further assessment and referral. Normandy with no unresolved questions or concerns, has senior medical writer's contact information should he need anything prior to our meeting. Suicide Screen: C-SSRS Screening [place]-Suicide Severity Rating Scale (C-SSRS Screener) 1. Over the past month, have you wished you were or wished you could go to sleep and not wake up? No 2. Over the past month, have you had any actual thoughts of killing yourself? No 3. Over the past month, have you been thinking about how you might do this? Response not required due to responses to other questions. 4. Over the past month, have you had these thoughts and had some intention of acting on them? Response not required due to responses to other questions. 5. Over the past month, have you started to work out or worked out the details of how to kill yourself? Response not required due to responses to other questions. 6. If yes, at any time in the past month did you intend to carry out this plan? Response not required due to responses to other questions. 7. In your lifetime, have you ever done anything, started to do anything, or prepared to do anything to end your life (for example, collected pills, obtained a gun, gave away valuables, went to the roof but didn't jump)? No 8. If YES, was this within the past 3 months? Response not required due to responses to other questions. /SEVEN Pardo LICENSED CLINICAL WILDLAND FIREFIGHTER Signed: 06/03/2024 11:29 06/03/2024 ADDENDUM STATUS: COMPLETED Normandy is requesting to establish care at the [facility]. Thank you in advance. /SEVEN Pardo LICENSED CLINICAL WILDLAND FIREFIGHTER Signed: 06/03/2024 11:36 Receipt Acknowledged By: 06/15/2024 16:46 /ashley COTTRELL TIN TIE MACHINE OPERATOR AUTOMATIC EMILEE 06/15/2024 ADDENDUM STATUS: COMPLETED Please call to establish care at [place] /ashley COTTRELL TIN TIE MACHINE OPERATOR AUTOMATIC EMILEE Signed: 06/15/2024 16:47 Receipt Acknowledged By: * AWAITING SIGNATURE * PINA DRUMMOND [facility]
--- OUTSIDE RECORDS SUMMARY | 2024-11-20 10:03 | XMS_ITS | Encounter Summary ---
Author Name [facility] [place] [facility] [place] Address [address] [place] [address] Care Team Providers Care Business Continuity Analyst Name Role Phone JAVI TYLER Primary [...] Patient's Relationship to Policy Travis [facility] 2017 [facility] CARE NON-B ILL 2024 [facility] [id number] JAVI MURGUIA PATIENT Selected Encounter This section includes the information on record at [place] for the Encounter. Date/Time Encounter Type Encounter Description Reason Provider Source April 01, 2024 08:03 AM Outpatient Encounter TELEPHONE PRIMARY CARE ICD-10-CM G89.21 Chronic pain due to TIMOTHY Velazquez Everardo Encounter Template Text not used by [place] Assessments - Encounter Diagnoses This section includes the primary and secondary diagnoses documented for the Encounter. Date/Time Primary/Secondary Diagnosis Diagnosis Name Provider Source April 01, 2024 08:03 AM PRIMARY Chronic pain due to trauma TIMOTHY BAZZI [facility] Plan of Treatment: Future Appointments (+ 6 months) and Future Tests (+/- 45 days) The Plan of Treatment section includes future care activities for the patient from all [place] [facility]. This section includes future appointments and future orders which are active, pending or scheduled. Future Appointments This section includes appointments that were scheduled to occur 6 months from the date of the Encounter, up to a maximum of 20 appointments. The data comes from all [place] treatment facilities. Appointment Date/Time Appointment Type Appointme nt Facility Name April 10, 2024 11:15 AM AMBULATORY - MEDICINE [facility] May 25, 2024 02:00 PM AMBULATORY MEDICINE [place] [facility] [place] [facility] Jul 16, 2024 09:00 AM [facility]UL[facility]INE [place] [facility] Jul 20, 2024 11:30 AM [facility]UL[facility]ORY [facility]INE [place] [facility] Aug 20, 2024 11:30 AM AMBULATORY MEDICINE [facility] Sep 07, 2024 10:00 AM AMBULATORY MEDICINE [facility] Lab Results: +/- 30 days of the encounter This section includes the Chemistry and Hematology Lab Results on record with [place] for the patient. Radiology Reports and Pathology Reports are provided separately, in subsequent sections. Lab Results This section contains the Chemistry/Hematology Results that were resulted 30 days before or 30 daysafter the date of the Encounter. Date/Time Source Result Type Result - Unit Interpretation Reference Range Comment April 10, 2024 12:37 PM [facility] DRUGS OF ABUSE Specimen Type: URINE Comment: Urine with Cr <5 is diluted or substituted. Cr between 5 and 20 is very dilute. Urine with SG of 1.001 or less is diluted or substituted. SG of 1.003 or less is very dilute. Urine with a pH <3 or >11 has been adulterated and is unsuitable for testing by our current method. Urine with pH between 3 and 4 OR 10 and 11 may have been adulterated. FENTANYL CONFIRMATION NOT SENT BY LAB. Ordering Provider: PHILIPPE WALLACE Report Released Date/Time: April 10, 2024 12:13 PM Reporting Lab: [address] [id number] Performing Lab: [facility] [address] [id number] AMPHETAMINES SCREEN NONE-DETECTED None-Detec pranay, Cutoff = 1000 ng/mL BENZODIAZEPINES SCREEN POSITIVE HH None-Detec pranay, Cutoff = 200 ng/mL COCAINE SCREEN NONE-DETECTED N one-Detec pranay,Cutoff = 300 ng/mL OPIATES SCREEN NONE-DETECTED N one-Detec pranay, Cutoff = 300 ng/mL CANNABINOIDS SCREEN NONE-DETECTED None-Detec pranay,Cutoff = 50 ng/mL BARBITURATES SCREEN NONE-DETECTED None-Detec pranay,Cutoff = 200 ng/mL OXYCODONE SCREEN NONE-DETECTED None-Detec pranay, Cutoff = 100 ng/mL BUPRENORPHINE (URINE) POSITIVE HH None Detected, Cutoff = 10.0 ng/mL ALCOHOL, ETHYL URINE NONE-DETECTED mg/dL NONE-DETEC PRANAY, cutoff = 10 mg/dL FENTANYL SCREEN NONE-DETECTE D ng/mL Negative: Cutoff = 1.00 ng/mL PH, YAMEL 6.1 [pH] 4-10 CREATININE, YAMEL 424.50 mg/dL >20 SP.GRAVITY, YAMEL 1.021 H 1.00 3-1.02 0 Social History: Smoking Status (Most current) and Tobacco Use (All prior to encounter date) This section includes the most current, and the historical, smoking and tobacco- related health factors from the [place] facility where the Encounter took place. Current Smoking Status This section includes the most current smoking, or tobacco-related health factor, from the [place] facility where the Encounter took place. Date/Time Current Smoking Status Comment Facil ity Aug 15, 2023 04:34 PM VA-TOBACCO USER EVERY DAY [facility] Tobacco Use History This section includes a history of the smoking, or tobacco-related health factors, that were collected on or before the date of the Encounter. The data comes from the [place] facility where the Encounter took place. Date/Time Smoking Status/Tobacco Use Comment F acility Aug 15, 2023 04:34 PM VA-TOBACCO USE > 1 5 LESS THAN 30 YEARS [facility] Aug 15, 2023 04:34 PM VA-TOBACCO USE ADVICE [facility] Aug 15, 2023 04:34 PM [facility]ACCO USE [facility] Aug 15, 2023 04:34 PM VA-TOBACCO USE MED NO [facility] Aug 15, 2023 04:34 PM VA-TOBACCO USER EVERY DAY [facility] Encounter Notes: All associated encounter notes This section contains the clinical notes associated to the Encounter. Date/Time Encounter Note(s) Provider Source April 01, 2024 08:12 AM ACCOUNTING OF DISC LOSURES NOTE: LOCAL TITLE: STATE PRESCRIPTION DRUG MONITORING PROGRAM STANDARD TITLE: ACCOUNTING OF DISCLOSURES NOTE DATE OF NOTE: APRIL 01, 2024@08:12:44 ENTRY DATE: APRIL 01, 2024@08:12:44 AUTHOR: TIMOTHY BAZZI EXP COSIGNER: URGENCY: STATUS: COMPLETED This PDMP query was submitted by Timothy Bazzi MD. The clinical justification for this PDMP query is to review controlled substances prescribed outside of the [facility], and any additional information that may become available, as an important component of standard clinical care, and in accordance with [facility] policy. Patient information was shared with the PDMP [place]. No prescription(s) for controlled substances outside the [facility] were found in the last 90 days. /leticia/ Timothy Bazzi MD STAFF PHYSICIAN Signed: 04/01/2024 08:13 TIMOTHY BAZZI [facility] April 01, 2024 08:03 AM [facility] NOTE: LOCAL TITLE: PAIN CLINIC NOTE STANDARD TITLE: PAIN MEDICINE OUTPATIENT NOTE DATE OF NOTE: APRIL 01, 2024@08:03 ENTRY DATE: APRIL 01, 2024@08:04:05 AUTHOR: TIMOTHY BAZZI EXP COSIGNER: URGENCY: STATUS: COMPLETED Phone call to patient, returning his call. 7 minute call in cross coverage. He is out of Proberry, ran out about a week or more ago. 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 He also needs renewal of diazepam, says he has 2 pills left. PLAN: Rx diazepam ordered for mail delivery. Contacted pharmacist to request that belbuca rx be shipped overnight. /leticia/ Timothy Bazzi MD STAFF PHYSICIAN Signed: 04/01/2024 08:13 TIMOTHY BAZZI [facility]
--- OUTSIDE RECORDS SUMMARY | 2024-11-20 10:03 | XMS_ITS | Encounter Summary ---
Author Name [facility] [facility] [place] [facility] [facility] [place] Address [address] [place] [address] Care Team Providers Care Steel Chipper Name Role Phone JAVI TYLER Primary Care [...] Travis's Name Patient's Relationship to Policy Travis [address] DIRE T CARE NON-B ILL 2024 [facility] [place] [id number] JAVI MURGUIA PATIENT Selected Encounter This section includes the information on record at [place] for the Encounter. Date/Time Encounter Type Encounter Description Reason Provider Source Feb 18, 2024 02:45 PM OFFICE O/P EST HI 40 MIN PAIN CLINIC ICD-10-CM M25.519 Pain in unspecified shoulder KUPFERSCHMID,S ETH B IHE Encounter Template Text not used by [facility] Assessments - Encounter Diagnoses This section includes the primary and secondary diagnoses documented for the Encounter. Date/Time Primary/Secondary Diagnosis Diagnosis Name Provider Source Feb 18, 2024 04:08 PM PRIMARY Pain in unspecified shoulder KUPFERSCHMID, MARIO B [facility] Feb 18, 2024 04:08 PM SECONDARY Alcohol dependence, uncomplicated MARIO PERDOMO [facility] Feb 18, 2024 04:08 PM SECONDARY Chronic pain due to trauma MARIO PERDOMO [facility] Feb 18, 2024 04:08 PM SECONDARY Post-traumatic stress disorder, unspecified MARIO PERDOMO [facility] Plan of Treatment: Future Appointments (+ 6 months) and Future Tests (+/- 45 days) The Plan of Treatment section includes future care activities for the [facility] [place] [facility] This section includes future appointments and future orders which are active, pending or scheduled. Future Appointments This section includes appointments that were scheduled to occur 6 months from the date of the Encounter, up to a maximum of 20 appointments. The data comes from all [place] treatment facilities. Appointment Date/Time Appointment Type Appointme nt Facility Name April 10, 2024 11:15 AM AMBULATORY - MEDICINE [facility] May 25, 2024 02:00 PM AMBULATORY MEDICINE [facility] Jul 16, 2024 09:00 AM [facility] Jul 20, 2024 11:30 AM AMBULATORY MEDICINE [facility] Lab Results: +/- 30 days of the encounter This section includes the Chemistry and Hematology Lab Results on record with [place] for the patient. Radiology Reports and Pathology Reports are provided separately, in subsequent sections. Lab Results This section contains the Chemistry/Hematology Results that were resulted 30 days before or 30 daysafter the date of the Encounter. Date/Time Source Result Type Result - Unit Interpretation Reference Range Comment Feb 18, 2024 03:57 PM [facility] ETG SCREEN (wx) Specimen Type: URINE Comment: YAMEL test are qualitative, any L or H flags only indicate a VA alert was sent. This ETG test was developed and its performance characteristics determined by [place] clinical lab. The [place] Food and Drug Administration has not approved or cleared this test, FDA clearance or approval is not currently required for clinical use. ETG cutoff 500 ng/mL YAMEL Screens are for medical purposes. For confirmation use YAMEL Confirmation Add on Menu in CPRS. Ordering Provider: SE STEPHENIE PERDOMO Report Released Date/Time: Jan 17, 2024 10:50 AM Reporting Lab: [facility] [address] [facility] [address] Performing Lab: [facility] [address] [facility] [address] ETG SCREEN (wx) SCREEN POS H Negative Feb 18, 2024 03:57 PM [facility] METHADONE SCREEN Specimen Type: URINE Comment: YAMEL test are qualitative, any L or H flags only indicate a VA alert was sent. Ordering Provider: SE STEPHENIE PERDOMO Report Released Date/Time: Jan 17, 2024 10:50 AM Reporting Lab: [address] [address] Performing Lab: [facility] [address] [facility] [address] METHADONE SCREEN None detected(Negati ve) L Negative Feb 18, 2024 03:57 PM [facility] ALCOHOL, ETHYL URINE PANEL Specimen Type: URINE Comment: Urine with Cr [...] 10 and 11 may have been adulterated. Ordering Provider: SE STEPHENIE PERDOMO Report Released Date/Time: Jan 17, 2024 10:50 AM Reporting Lab: [address] [address] Performing Lab: [address] [address] ALCOHOL, ETHYL URINE NONE-DETECTED mg/dL NONE-DETEC PRANAY, cutoff = 10 mg/dL PH, YAMEL 6.4 [pH] 4-10 CREATININE, YAMEL 236.21 mg/dL >20 SP.GRAVITY, YAMEL 1.012 1.00 3-1.02 0 Feb 18, 2024 03:57 PM [facility] AMPHETAMINES SCREEN PANEL Specimen Type: URINE Comment: Urine with Cr [...] 10 and 11 may have been adulterated. Ordering Provider: SE STEPHENIE PERDOMO Report Released Date/Time: Jan 17, 2024 10:50 AM Reporting Lab: [address] [address] Performing Lab: [address] [address] AMPHETAMINES SCREEN NONE-DETECTED None-Detec pranay, Cutoff = 1000 ng/mL PH, YAMEL 6.4 [pH] 4-10 CREATININE, YAMEL 236.21 mg/dL >20 SP.GRAVITY, YAMEL 1.012 1.00 3-1.02 0 Feb 18, 2024 03:57 PM [facility] FENTANYL SCREEN PANEL Specimen Type: URINE Comment: Urine with Cr [...] CONFIRMATION NOT SENT BY LAB. Ordering Provider: SE STEPHENIE PERDOMO Report Released Date/Time: Jan 17, 2024 10:50 AM Reporting Lab: [address] [address] Performing Lab: [address] [address] FENTANYL SCREEN NONE-DETECTE D ng/mL Negative: Cutoff = 1.00 ng/mL PH, YAMEL 6.4 [pH] 4-10 CREATININE, YAMEL 230.99 mg/dL >20 SP.GRAVITY, YAMEL 1.012 1.00 3-1.02 0 Feb 18, 2024 03:57 PM [facility] BENZODIAZEPINES SCREEN PANEL Specimen Type: URINE Comment: Urine with Cr [...] 10 and 11 may have been adulterated. Ordering Provider: SE STEPHENIE PERDOMO Report Released Date/Time: Jan 17, 2024 10:50 AM Reporting Lab: [address] [address] Performing Lab: [address] [address] BENZODIAZEPINES SCREEN NONE-DETECTED None-Detec pranay, Cutoff = 200 ng/mL PH, YAMEL 6.4 [pH] 4-10 CREATININE, YAMEL 236.21 mg/dL >20 SP.GRAVITY, YAMEL 1.012 1.00 3-1.02 0 Feb 18, 2024 03:57 PM [facility] BUPRENORPHINE SCREEN PANEL Specimen Type: URINE Comment: Urine with Cr [...] 10 and 11 may have been adulterated. Ordering Provider: SE STEPHENIE PERDOMO Report Released Date/Time: Jan 17, 2024 10:50 AM Reporting Lab: [address] [address] Performing Lab: [address] [address] BUPRENORPHINE (URINE) POSITIVE HH None Detected, Cutoff = 10.0 ng/mL PH, YAMEL 6.4 [pH] 4-10 CREATININE, YAMEL 236.21 mg/dL >20 SP.GRAVITY, YAMEL 1.012 1.00 3-1.02 0 Feb 18, 2024 03:57 PM [place] [facility] CANNABINOIDS SCREEN PANEL Specimen Type: URINE Comment: Urine with Cr [...] 10 and 11 may have been adulterated. Ordering Provider: SE STEPHENIE PERDOMO Report Released Date/Time: Jan 17, 2024 10:50 AM Reporting Lab: [facility] [employer] [address] Performing Lab: [address] [address] CANNABINOIDS SCREEN NONE-DETECTED None-Detec pranay,Cutoff = 50 ng/mL PH, YAMEL 6.4 [pH] 4-10 CREATININE, YAMEL 236.21 mg/dL >20 SP.GRAVITY, YAMEL 1.012 1.00 3-1.02 0 Feb 18, 2024 03:57 PM [facility] COCAINE SCREEN PANEL Specimen Type: URINE Comment: Urine with Cr [...] 10 and 11 may have been adulterated. Ordering Provider: SE STEPHENIE PERDOMO Report Released Date/Time: Jan 17, 2024 10:50 AM Reporting Lab: [place] [facility] [employer] [address] Performing Lab: [place] [employer] [address] COCAINE SCREEN NONE-DETECTED N one-Detec pranay,Cutoff = 300 ng/mL PH, YAMEL 6.4 [pH] 4-10 CREATININE, YAMEL 236.21 mg/dL >20 SP.GRAVITY, YAMEL 1.012 1.00 3-1.02 0 Feb 18, 2024 03:57 PM [facility] OPIATES SCREEN PANEL Specimen Type: URINE Comment: Urine with Cr [...] 10 and 11 may have been adulterated. Ordering Provider: SE STEPHENIE PERDOMO Report Released Date/Time: Jan 17, 2024 10:50 AM Reporting Lab: [address] [address] Performing Lab: [address] [address] OPIATES SCREEN NONE-DETECTED N one-Detec pranay, Cutoff = 300 ng/mL PH, YAMEL 6.4 [pH] 4-10 CREATININE, YAMEL 236.21 mg/dL >20 SP.GRAVITY, YAMEL 1.012 1.00 3-1.02 0 Feb 18, 2024 03:57 PM [facility] OXYCODONE SCREEN PANEL Specimen Type: URINE Comment: Urine with Cr [...] 10 and 11 may have been adulterated. Ordering Provider: SE STEPHENIE PERDOMO Report Released Date/Time: Jan 17, 2024 10:50 AM Reporting Lab: [address] [address] Performing Lab: [address] [place] [address] OXYCODONE SCREEN NONE-DETECTED None-Detec pranay, Cutoff = 100 ng/mL PH, YAMEL 6.4 [pH] 4-10 CREATININE, YAMEL 236.21 mg/dL >20 SP.GRAVITY, YAMEL 1.012 1.00 3-1.02 0 Feb 18, 2024 03:57 PM [facility] BARBITURATES SCREEN PANEL Specimen Type: URINE Comment: Urine with Cr [...] 10 and 11 may have been adulterated. Ordering Provider: SE STEPHENIE PERDOMO Report Released Date/Time: Jan 17, 2024 10:50 AM Reporting Lab: [address] [address] Performing Lab: [address] BARBITURATES SCREEN NONE-DETECTED None-Detec pranay,Cutoff = 200 ng/mL PH, YAMEL 6.4 [pH] 4-10 CREATININE, YAMEL 236.21 mg/dL >20 SP.GRAVITY, YAMEL 1.012 1.00 3-1.02 0 Feb 18, 2024 03:51 PM [facility] LIVER FUNCTION Specimen Type: SERUM No comment entered. Ordering Provider: SE STEPHENIE PERDOMO Report Released Date/Time: Jan 17, 2024 10:50 AM Reporting Lab: [address] [address] Performing Lab: [place] [id number] PROTEIN,TOTAL 7.0 g/dL 6.0-8.3 ALBUMIN 3.6 g/dL 3.5-5.0 ALKALINE PHOSPHATASE 69 U/L 40-150 AST 28 U/L 5-34 ALT 22 U/L BILIRUBIN, TOTAL 0.4 mg/dL 0.2-1.2 Feb 18, 2024 03:51 PM [facility] BASIC METABOLIC PANEL (non-fasting) Specimen Type: SERUM No comment entered. Ordering Provider: SE STEPHENIE PERDOMO Report Released Date/Time: Jan 17, 2024 10:50 AM Reporting Lab: [address] [address] Performing Lab: [address] [address] UREA NITROGEN 10 mg/dL 7-25 GLUCOSE 103 mg/dL H 65-100 SODIUM 138 mmol/L 135-145 POTASSIUM 3.1 mmol/L L 3.5-5.0 CHLORIDE 100 mmol/L 100-110 CO2 27 meq/L 20-30 CREATININE, Serum 0.79 mg/dL 0.50-1.40 eGFR(CKD-EPI 2020) >90 mL/min >60 Feb 18, 2024 03:51 PM [facility] CBC Specimen Type: BLOOD No comment entered. Ordering Provider: SE STEPHENIE PERDOMO Report Released Date/Time: Jan 17, 2024 10:50 AM Reporting Lab: [address] [address] Performing Lab: [address] [address] WBC 8.71 10*3/uL 4.50-11.00 RBC 4.33 10*6/uL 4.23-5.66 HGB 13.1 g/dL 12.8-17 HCT 38.8 L 39.2-50.4 MCV 89.6 fL 82-99 MCHC 33.8 g/dL 30.8-35.1 PLT 216 10*3/uL 140-360 RDW-CV 15.8 12.0-16.0 MCH 30.3 pg 26.2-32.6 Social History: Smoking Status (Most current) and Tobacco Use (All prior to encounter date) This section includes the most current, and the historical, smoking and tobacco- related health factors from the [place] facility where the Encounter took place. Current Smoking Status This section includes the most current smoking, or tobacco-related health factor, from the [place] facility where the Encounter took place. Date/Time Current Smoking Status Comment Katty ity Aug 15, 2023 04:34 PM VA-TOBACCO USER EVERY DAY [facility] Tobacco Use History This section includes a history of the smoking, or tobacco-related health factors, that were collected on or before the date of the Encounter. The data comes from the [place] facility where the Encounter took place. 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 Encounter Notes: All associated encounter notes This section contains the clinical notes associated to the Encounter. Date/Time Encounter Note(s) Provider Source Feb 18, 2024 03:32 PM ACCOUNTING OF DISCLOSURES NOTE: LOCAL TITLE: STATE PRESCRIPTION DRUG MONITORING PROGRAM STANDARD TITLE: ACCOUNTING OF DISCLOSURES NOTE DATE OF NOTE: FEB 18, 2024@15:32:13 ENTRY DATE: FEB 18, 2024@15:32:13 AUTHOR: MARIO PERDOMO EXP COSIGNER: URGENCY: STATUS: COMPLETED This PDMP query was submitted by Mario Perdomo MD. The clinical justification for this PDMP query is to review controlled substances prescribed outside of the [facility], and any additional information that may become available, as an important component of standard clinical care, and in accordance with [facility] policy. Patient information was shared with the PDMP Appr[place]. No prescription(s) for controlled substances outside the [facility] were found in the last 90 days. /leticia/ MARIO PERDOMO MD PHYSICIAN Signed: 02/18/2024 15:[address] [facility] Feb 18, 2024 02:52 PM PAIN MEDICINE OUTPATIENT NOTE: LOCAL TITLE: PAIN CLINIC NOTE STANDARD TITLE: PAIN MEDICINE OUTPATIENT NOTE DATE OF NOTE: FEB 18, 2024@14:52 ENTRY DATE: FEB 18, 2024@14:53:01 AUTHOR: MARIO PERDOMO EXP COSIGNER: URGENCY: STATUS: COMPLETED CURRENT ======= Things could be worse, a lot worse. Got 100%, no sure if working or not working. Going well: became engaged with April. Son doing well. Mother in [facility]. Problems: Waiting for paycheck/fpc. Estranged from daughters. ETOH: a couple of shots per night. Do you have a problem with alcohol? I used to. I don't anymore. AA: I did that in the past when they made me. I did not drink the colby-anuja. Ankles swollen, left worse than right. Walking with cane. PAIN-RELATED MEDICATIONS Buprenorphine 10/2021 Oxycodone Paroxetine 40 mg Quetiapine 50-150 mg qhs Testosterone Amitriptyline 25 mg, Zolpidem - caused sleep walking PAIN-RELATED CONDITIONS PCP at [facility], Jose Fried Cervical and lumbar spine issues Right shoulder worse than left Knees Alcohol use disorder, [place] detox and rehab November 12 to Dec 30, 2022. 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 Daughters in [place], [place] (1998 and 2003); estranged. 1 brother from mother, 2 from father. Cigs: 11/12 ppd ETOH: Quit 11/2022 Substances: None RISK MITIGATION UDS: 09/2023 PDMP: 02/18/2024 Consent: 04/19/2023 EXAM Talkative, confident, blaming Ankles 1+ pitting edema === PLAN === Mr. 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 02/18/2024 First in-person visit in a long time. ETOH Direct discussion about his physical and mental health due to ETOH. He tried to minimize the issue, J and I agree I can have 2 shots per night. I reviewed importance of stopping alcohol totally so he does not further risk his health and relationship. He agrees he does not want to relapse (and minimizes the consequences of that, It would suck but I would get back on my feet ). I offered a deal: limited supply of diazepam with understanding that he will not drink for next month. Gave instructions for use of diazepam. He accepted the offer. -Check labs. PAIN -Buprenorphine and oxycodone. -Bupe last filled more than 30 days ago. Will monitor. DEPRESSION, PTSD -[facility] prescriber -Paroxetine. -Did not like SUDS therapy. -Encouraged to connect with peer support. SLEEP -Quetiapine EDEMA Reva has compression stockings. Encouraged to use them. 01/17/2024 PTSD: Don, Peer Support, is helping Reva find therapist. ETOH: Suspect it is more problematic than he acknowledges. -Denial and resistance put him at risk for problems. -Reiterated importance of reducing intake, if not stopping. PAIN: Buprenorphine tid and oxycodone prn. -Increased frequency helps except for night sweats (about every 3 day he wakes in a pool of sweat). ANKLE SWELLING: multifactorial. Instructed to speak with non-VA PCP about amlodipine. ORTHOSTATIC ISSUES: mostly resolved. Says he is eating better. Recheck labs. ASA 2 daily: instructed to stop. GINSENG: Taking a large dose daily. PRIMARY CARE: Encouraged to bring care to [facility] due to lack of coordination and communication with PCP. 12/18/2023 Risk of decompensation. ALCOHOL: Likely minimizing. Discussed at length self-mediating, stakes with son and GF, benefit of reducing (stopping better).Labs reviewed with Reva, consistent with alcohol use. SLEEP: Quetiapine helpful. [...] Don (Peer Support)are helpful. Stopped going to [facility], It was just a bitch session. Encouraged need to continue treatment. He said PTSD messes with the thinking. ORTHOSTATIC EPISODES: resolved. NUTRITION: Reports he is eating better, albumin likely improved from 3.1. ENDOCRINE: Testosterone from Urologist TRANSITION: Discussed stress of fpc, loss of structure and mission. Thank you for giving a shit. Not many people do. 11/15/2023 Trying to appear stable Minimizes recent events. Ongoing complaint of apparent orthostatic dizziness -F/U with PC Letter for work Short ETOH relapse Working with Jammie Villanueva for Continue plan below with close f/u Reva and I formulated the plan through shared medical-decision making. Reva repeated the plan back to me and had no further questions at end of appointment. APPOINTMENT LENGTH: 45 minutes FOLLOW-UP: 4 weeks No data available === MEDICATION and RECONCILIATION === Active Outpatient Medications (including Supplies): Active Outpatient Medications Status 1) BUPRENORPHINE HCL 2MG SUBLINGUAL TAB DISSOLVE ONE ACTIVE TABLET UNDER THE TONGUE EVERY 8 HOURS FOR CHRONIC PAIN 2) CETIRIZINE HCL 10MG TAB TAKE ONE TABLET BY MOUTH ONCE ACTIVE DAILY FOR ALLERGIES 3) PAROXETINE HCL 40MG TAB TAKE ONE TABLET BY MOUTH ONCE ACTIVE DAILY 4) QUETIAPINE FUMARATE 50MG TAB TAKE ONE TABLET BY MOUTH ACTIVE AT BEDTIME NEEDED FOR SLEEP 5) SILDENAFIL CITRATE 100MG TAB TAKE ONE TABLET BY MOUTH ACTIVE ONCE DAILY TAKE 1 HOUR PRIOR TO SEXUAL ACTIVITY Active Non-VA Medications Status 1) Non-VA ALBUTEROL [...] OXIDE TAB BY MOUTH ACTIVE 7) Non-VA AWEHR-2-KBPL ETHYL ESTERS 1000MG CAP 1000MG BY ACTIVE [...] 2 ACTIVE PUFFS BY MOUTH ONCE DAILY 17 Total Medications ACTIVE PROBLEMS Active problems - Computerized Problem List is the source for the followin. Exposure to potentially hazardous substance 2. Erectile Dysfunction ([facility] [id number]) 3. Neck Pain ([facility] [id number]) 4. Pain of Right Knee ([facility] [id number]) 5. Shoulder Pain ([facility] [id number]) 6. Low testosterone 7. GERD - Gastro-Esophageal Reflux Disease ([facility] [id number]) 8. Headache ([facility] [id number]) 9. Allergic Rhinitis ([facility] [id number]) 10. Concussion with loss of consciousness 11. Asthma ([facility] [id number]) 12. SAS - Sleep apnoea syndrome 13. Chronic pain 14. Alcohol dependence 15. Tobacco abuse 16. Posttraumatic stress disorder Appointment length includes time with , completing clinical reminders, reviewing relevant information in EMR, review of PDMP, ordering appropriate tests, prescribing medications, coordinating care, and completing the medical record. /leticia/ MARIO PERDOMO MD PHYSICIAN Signed: 02/18/2024 16:08 Receipt Acknowledged By: 02/24/2024 12:36 /leticia/ ARLEN YAO 02/19/2024 08:15 /leticia/ Reginald Sun, JeannieD Clinical Pharmacist Practitioner [facility] [place] [facility]
--- OUTSIDE RECORDS SUMMARY | 2024-11-20 10:03 | XMS_ITS ---
Author Name [facility] [place] [facility] [place] Address [address] [place] [address] Care Team Providers Care Impregnator And Drier Helper Name Role Phone JAVI TYLER Primary Care [...] Travis's Name Patient's Relationship to Policy Travis [facility] 2017 [facility] NON-B ILL 2024 [facility] [id number] JAVI MURGUIA PATIENT Selected Encounter This section includes the information on record at [place] for the Encounter. Date/Time Encounter Type Encounter Description Reason Pro vider Source April 09, 2024 10:08 AM Outpatient Encounter PAIN CLINIC IHE Encounter Template Text not used by [place] Plan of Treatment: Future Appointments (+ 6 [...] 20 appointments. The data comes from all [place] treatment facilities. Appointment Date/Time Appointment Type Appointme nt Facility Name April 10, 2024 11:15 AM AMBULATORY - MEDICINE [place] [facility] [facility] May 25, 2024 02:00 PM AMBULATORY - MEDICINE [place] [facility] Jul 16, 2024 09:00 AM AMBULATORY - MEDICINE [facility] [place] [facility] Jul 20, 2024 11:30 AM AMBULATORY - MEDICINE [place] [facility] [place] [facility] Aug 20, 2024 11:30 AM AMBULATORY - MEDICINE [place] [place] [facility] Sep 07, 2024 10:00 AM AMBULATORY - MEDICINE [place] [facility] [place] [facility] Oct 09, 2024 09:30 AM [facility] Lab Results: +/- 30 days of the encounter This section includes the Chemistry and Hematology Lab Results on record with [place] for the patient. Radiology Reports and Pathology Reports are provided separately, in subsequent sections. Lab Results This section contains the Chemistry/Hematology Results that were resulted 30 days before or 30 daysafter the date of the Encounter. Date/Time Source Result Type Result - Unit Interpretation Reference Range Comment April 10, 2024 12:37 PM [facility] DRUGS OF ABUSE Specimen Type: URINE [...] April 10, 2024 12:13 PM Reporting Lab: [address] [address] Performing Lab: [address] [address] AMPHETAMINES SCREEN NONE-DETECTED None-Detec pranay, Cutoff = [...] and tobacco- related health factors from the [place] facility where the Encounter took place. Current Smoking Status This section includes the most current smoking, or tobacco-related health factor, from the [place] facility where the Encounter took place. Date/Time Current Smoking Status Comment Facil ity Aug 15, 2023 04:34 PM VA-TOBACCO DOESNT USE WI 30 MIN [facility] Tobacco Use History This section includes a history of the smoking, or tobacco-related health factors, that were collected on or before the date of the Encounter. The data comes from the [place] facility where the Encounter took place. 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 Date/Time Encounter Note(s) Provider Source April 09, 2024 10:08 AM TELEPHONE ENCOUNTE R NOTE: LOCAL TITLE: TELEPHONE NOTE/SPECIALTY CLINIC STANDARD TITLE: TELEPHONE ENCOUNTER NOTE DATE OF NOTE: APRIL 09, 2024@10:08 ENTRY DATE: APRIL 09, 2024@10:08:11 AUTHOR: BLANCO VARGAS COSIGNER: URGENCY: STATUS: COMPLETED Call attempt was made to remind vet that they have a FTF appt with the Pain clinic on 04/10/2024 at 1115. No answer, lvm. Location was confirmed. /leticia/ BLANCO VARGAS ADVANCED ELEVATOR CONDUCTOR Signed: 04/09/2024 10:08 BLANCO VARGAS [place] [facility] [place] [facility]
--- OUTSIDE RECORDS SUMMARY | 2024-11-20 10:03 | XMS_ITS ---
Author Name [facility] [place] [facility] [place] [facility] [place] Address [address] [place] [address] Care Team Providers Care Mechanical Sound Technician Name Role Phone JAVI TYLER Primary Care [...] Travis's Name Patient's Relationship to Policy Travis [facility] 2017 [facility] DIRE T CARE NON-B ILL 2024 [facility] [id number] JAVI MURGUIA PATIENT Selected Encounter This section includes the information on record at [place] for the Encounter. Date/Time Encounter Type Encounter Description Reason Provider Source April 10, 2024 11:15 AM OFFICE O/P EST HI 40 MIN PAIN CLINIC ICD-10-CM M54.2 Cervicalgia KUPFERSCHMID,S ETH B IHE Encounter Template Text not used by [place] Assessments - Encounter Diagnoses This section includes the primary and secondary diagnoses documented for the Encounter. Date/Time Primary/Secondary Diagnosis Diagnosis Name Provider Source Apr 14, 2024 01:22 PM PRIMARY Cervicalgia [place] MARIO B [place] [facility] [place] [facility] Apr 14, 2024 01:22 PM SECONDARY Alcohol dependence, uncomplicated KUPFERSCHMID, MARIO B [place] [facility] [place] [facility] Apr 14, 2024 01:22 PM SECONDARY Pain in unspecified shoulder EDWNIFERSCHMID, MARIO B [place] [facility] [place] [facility] Apr 14, 2024 01:22 PM SECONDARY Post-traumatic stress disorder, unspecified KUPFERSCHMID, MARIO B [facility] Plan of Treatment: Future Appointments (+ 6 months) and Future Tests (+/- 45 days) The Plan of Treatment section includes future care activities for the patient from all [place] [facility]. This section includes future appointments and future orders which are active, pending or scheduled. Future Appointments This section includes appointments that were scheduled to occur 6 months from the date of the Encounter, up to a maximum of 20 appointments. The data comes from all [place] treatment facilities. Appointment Date/Time Appointment Type Appointme nt Facility Name May 25, 2024 02:00 PM AMBULATORY - MEDICINE [place] [facility] [place] [facility] Jul 16, 2024 09:00 AM AMBULATORY - MEDICINE [place] [place] [facility] Jul 20, 2024 11:30 AM AMBULATORY - MEDICINE [place] [facility] [place] [facility] Aug 20, 2024 11:30 AM AMBULATORY - MEDICINE [place] [facility] [place] [facility] Sep 07, 2024 10:00 AM AMBULATORY - MEDICINE [place] [facility] [place] [facility] Oct 09, 2024 09:30 AM AMBULATORY - MEDICINE [facility] Lab Results: +/- 30 days of the encounter This section includes the Chemistry and Hematology Lab Results on record with [place] for the patient. Radiology Reports and Pathology Reports are provided separately, in subsequent sections. Lab Results This section contains the Chemistry/Hematology Results that were resulted 30 days before or 30 daysafter the date of the Encounter. Date/Time Source Result Type Result - Unit Interpretation Reference Range Comment April 10, 2024 12:37 PM [facility] Specimen Type: URINE [...] CONFIRMATION NOT SENT BY LAB. Ordering Provider: MARIO PERDOMO Report Released Date/Time: April 10, 2024 12:13 PM Reporting Lab: [address] [address] Performing Lab: [address] [address] AMPHETAMINES SCREEN NONE-DETECTED None-Detec pranay, Cutoff = [...] and tobacco- related health factors from the [place] facility where the Encounter took place. Current Smoking Status This section includes the most current smoking, or tobacco-related health factor, from the [place] facility where the Encounter took place. Date/Time Current Smoking Status Comment Katty dacosta Aug 15, 2023 04:34 PM VA-TOBACCO USER EVERY DAY [facility] Tobacco Use History This section includes a history of the smoking, or tobacco-related health factors, that were collected on or before the date of the Encounter. The data comes from the [place] facility where the Encounter took place. 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 Date/Time Encounter Note(s) Provider Source April 10, 2024 11:41 AM ACCOUNTING OF DISCLOSURES NOTE: LOCAL TITLE: STATE PRESCRIPTION DRUG MONITORING PROGRAM STANDARD TITLE: ACCOUNTING OF DISCLOSURES NOTE DATE OF NOTE: APRIL 10, 2024@11:41:23 ENTRY DATE: APRIL 10, 2024@11:41:23 AUTHOR: MARIO PERDOMO EXP COSIGNER: URGENCY: STATUS: COMPLETED This PDMP query was submitted by Mario Perdomo MD. The clinical justification for this PDMP query is to review controlled substances prescribed outside of the [facility], and any additional information that may become available, as an important component of standard clinical care, and in accordance with [facility] policy. Patient information was shared with the PDMP Appriss [place]. No prescription(s) for controlled substances outside the [facility] were found in the last 90 days. /leticia/ MARIO PERDOMO MD PHYSICIAN Signed: 05/25/2024 14:08 MARIO PERDOMO [place] [facility] [place] [facility] April 10, 2024 11:28 AM PAIN MEDICINE OUTPATIENT NOTE: LOCAL TITLE: PAIN CLINIC NOTE STANDARD TITLE: PAIN MEDICINE OUTPATIENT NOTE DATE OF NOTE: APRIL 10, 2024@11:28 ENTRY DATE: APRIL 10, 2024@11:28:14 AUTHOR: MARIO PERDOMO EXP COSIGNER: URGENCY: STATUS: COMPLETED CURRENT ======= I am doing okay. Taking my meds on time. I am eating good. More quality than quantity. Shailesh moved in. She brought a piano. Swelling became bad for a while. Improved with magnesium, fluid pill. 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 Diazepam 3 instead of 2 once, really mellowed me out. ETOH: Drinking a lot less. A shot or two 2 nights per week. Usually on nights she is not there. ETOH: a couple of shots per night. [...] caused sleep walking PAIN-RELATED CONDITIONS PCP at [facility], Jose Fried Cervical and lumbar spine issues Right shoulder worse than left Knees Alcohol use disorder, [place] [facility] November 12 to Dec 30, 2022. 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 Daughters in [place], [place] (1998 and 2003); estranged. 1 brother from mother, 2 from father. Cigs: 11/12 ppd ETOH: Quit 11/2022 Substances: None RISK MITIGATION UDS: 09/2023 PDMP: 02/18/2024 Consent: 04/19/2023 EXAM Talkative No cane Ankles minimally swollen === PLAN === Mr. 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 04/10/2024 Limited insight. Resistant to BH therapy. High risk for alcohol relapse. Buprenorphine, oxycodone, diazepam intermittent, paroxetine, quetiapine. -Reports significant benefit from diazepam. PAIN Relatively stable with buprenorphine and oxycodone. Trying to move to all buprenorphine. ANXIETY, ETOH Start buspirone for anxiety. Continue diazepam intermittent. Instructed not to use with alcohol. Continue paroxetine. Continue quetiapine for sleep. EDEMA Much better. Followed by outside PCP. SOCIAL Chen moved in with him in March. Supportive listening and motivational interviewing during appointment. and I formulated the plan through shared [...] MOUTH ONCE ACTIVE DAILY FOR ALLERGIES 3) DIAZEPAM 5MG TAB TAKE ONE TABLET BY MOUTH TWICE DAILY ACTIVE NEEDED DIRECTED FOR ANXIETY/NERVES - MAY USE UP TO 2 TABLETS PER DAY UP TO 3 TIMES PER WEEK 4) PAROXETINE HCL 40MG TAB TAKE ONE TABLET BY MOUTH ONCE ACTIVE DAILY 5) QUETIAPINE FUMARATE 50MG TAB TAKE ONE TABLET BY MOUTH ACTIVE AT BEDTIME NEEDED FOR SLEEP 6) SILDENAFIL CITRATE 100MG TAB TAKE ONE [...] OXIDE TAB BY MOUTH ACTIVE 7) Non-VA AUCNO-7-RCWX ETHYL ESTERS 1000MG CAP 1000MG BY ACTIVE [...] 2 ACTIVE PUFFS BY MOUTH ONCE DAILY 18 Total Medications ACTIVE PROBLEMS Active problems - Computerized Problem List is the source for the followin. Exposure to potentially hazardous substance 2. Erectile Dysfunction ([facility] [[email or web address] [id number]) 3. Neck Pain ([facility] [[email or web address]] [id number]) 4. Pain of Right Knee ([facility] [[email or web address]] [id number]) 5. Shoulder Pain ([facility] [[email or web address]] [id number]) 6. Low testosterone 7. GERD - Gastro-Esophageal Reflux Disease ([facility] [[email or web address]] [id number]) 8. Headache ([facility] [[email or web address]] [id number]) 9. Allergic Rhinitis ([facility] [[email or web address]] [id number]) 10. Concussion with loss of consciousness 11. Asthma ([facility] [[email or web address]] [id number]) 12. SAS - Sleep apnoea syndrome 13. Chronic pain 14. Alcohol dependence 15. Tobacco abuse 16. Posttraumatic stress disorder Appointment length includes time with [place], completing clinical reminders, reviewing relevant information in EMR, review of PDMP, ordering appropriate tests, prescribing medications, coordinating care, and completing the medical record. 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 Type TOOL ROOM ATTENDANT 04/01/2024 3 04/01/2024 Diazepam 5 Mg Tablet 24.00 28 Wi Cut [id number] Sc (633) 0/0 /[place] 04/01/2024 3 02/18/2024 Buprenorphine 2 Mg Tablet Sl 90.00 30 Se Kup [id number] [facility] (5614) 0/1 6.00 mg /[place] 02/18/2024 3 02/18/2024 Diazepam 5 Mg Tablet 24.00 28 Se Kup [id number] Sc (451) 0/0 /[place] 02/18/2024 3 02/18/2024 Oxycodone Hcl (Ir) 5 Mg Tablet 112.00 28 Se Kup [id number] [facility] (0344) 0/0 30.00 MME /[place] 02/14/2024 3 12/18/2023 Buprenorphine 2 Mg Tablet Sl 90.00 30 Se Kup [id number] [place] (5614) 1/1 6.00 mg /[place] 01/16/2024 3 01/16/2024 Oxycodone Hcl (Ir) 5 Mg Tablet 112.00 28 Ki March [id number] [place] (4904) 0/0 30.00 MME /[place] 12/26/2023 3 12/18/2023 Buprenorphine 2 Mg Tablet Sl 90.00 30 Se Kup [id number] [facility] (5614) 0/1 6.00 mg /[place] 12/18/2023 2 12/17/2023 Testosterone Cyp 200 Mg/ml 4.00 28 Al Phong [id number] [facility] (4113) 0/5 Comm Ins [place] 11/22/2023 3 11/22/2023 Oxycodone Hcl (Ir) 5 Mg Tablet 112.00 28 Se Kup [id number] [facility] (4904) 0/0 30.00 MME /[place] 11/22/2023 3 11/22/2023 Buprenorphine 2 Mg Tablet Sl 60.00 30 Se Kup [id number] [facility] (4904) 0/1 4.00 mg /[place] 10/24/2023 3 10/23/2023 Oxycodone Hcl (Ir) 5 Mg Tablet 112.00 28 Se Kup [id number] [facility] (4904) 0/0 30.00 MME /[place] 10/24/2023 3 09/12/2023 Buprenorphine 2 Mg Tablet Sl 60.00 30 Se Kup [id number] [facility] (4904) 1/ 4.00 mg /[place] 10/24/2023 3 10/24/2023 Diazepam 5 Mg Tablet 15.00 5 Se Kup [id number] [facility] (4904) 0/0 /[place] 09/13/2023 3 09/12/2023 Buprenorphine 2 Mg Tablet Sl 60.00 30 Se Kup [id number] [facility] (4904) 0/1 4.00 mg /[place] 09/13/2023 3 09/12/2023 Oxycodone Hcl (Ir) 5 Mg Tablet 120.00 30 Se Kup [id number] [facility] (4904) 0/0 30.00 MME /[place] 08/26/2023 3 08/26/2023 Oxycodone Hcl (Ir) 5 Mg Tablet 32.00 28 Se Kup [id number] [place] (4904) 0/0 8.57 MME /[place] 07/24/2023 3 07/22/2023 Oxycodone Hcl (Ir) 5 Mg Tablet 32.00 28 Se [facility] [id number] [place] (4904) 0/0 8.57 MME /[place] 07/05/2023 2 07/05/2023 Alprazolam 1 Mg Tablet 1.00 1 De Julio [id number] [facility] (411) 0/0 Comm Ins [place] 07/03/2023 3 07/01/2023 Belbuca 900 Mcg Film 90.00 30 Se [facility] [id number] [place] (4904) 0/1 2.70 mg /[place] 07/02/2023 3 07/01/2023 Oxycodone Hcl (Ir) 5 Mg Tablet 32.00 28 Se [facility] [id number] [place] (4904) 0/0 8.57 MME /[place] 06/28/2023 2 06/28/2023 Testosterone Cyp 200 Mg/ml 2.00 14 Al Phong [id number] [facility] (411) 0/5 Comm Ins [place] 05/30/2023 3 05/17/2023 Oxycodone Hcl (Ir) 5 Mg Tablet 48.00 28 Se [facility] [id number] [place] (4904) 0/0 12.86 MME /[place] 05/02/2023 3 04/19/2023 Oxycodone Hcl (Ir) 5 Mg Tablet 48.00 28 Se [facility] [id number] [place] (4904) 0/0 12.86 MME /[place] 04/09/2023 2 04/09/2023 Zolpidem Tartrate 10 Mg Tablet 30.00 30 Vielka Bettina [id number] [facility] (4113) 0/0 Comm Ins [place] 04/05/2023 3 04/05/2023 Oxycodone Hcl (Ir) 5 Mg Tablet 48.00 28 Se [facility] [id number] [place] (4904) 0/0 12.86 MME /[place] 03/27/2023 2 03/27/2023 Testosterone Cyp 200 Mg/ml 2.00 35 Al Phong [id number] [facility] (411) 0/5 Comm Ins [place] 12/27/2022 2 07/19/2022 Zolpidem Tartrate 10 Mg Tablet 30.00 30 Vielka Bettina [id number] [facility] (4113) 2/3 Comm Ins [place] 11/09/2022 2 06/13/2022 Testosterone Cyp 200 Mg/ml 4.00 28 Al Phong [id number] [facility] (4113) 1/3 Comm Ins [place] 10/24/2022 2 07/19/2022 Zolpidem Tartrate 10 Mg Tablet 30.00 30 Vielka Bettina [id number] [facility] (4113) 1/3 Comm Ins [place] 10/22/2022 2 10/18/2022 Chlordiazepoxide 25 Mg Capsule 8.00 4 Kr Fle [id number] [facility] (4113) 0/0 Comm Ins [place] 09/03/2022 2 09/03/2022 Oxycodone-Acetaminophen 10-325 14.00 3 De Julio [id number] [facility] (4113) 0/0 70.00 MME Comm Ins [place] 08/26/2022 2 06/13/2022 Testosterone Cyp 200 Mg/ml 4.00 28 Al Phong [id number] [facility] (4113) 0/3 Comm Ins [place] 07/21/2022 1 07/02/2022 Oxycodone Hcl (Ir) 10 Mg Tab 90.00 30 [facility] [id number] [facility] (4113) 0/0 45.00 MME Comm Ins [place] 07/19/2022 1 07/19/2022 Zolpidem Tartrate 10 Mg Tablet 30.00 30 Vielka Bettina [id number] [facility] (4113) 0/3 Comm Ins [place] 06/21/2022 1 05/31/2022 Oxycodone Hcl (Ir) 10 Mg Tab 90.00 30 [facility] [id number] [facility] (4113) 0/0 45.00 MME Comm Ins [place] 06/15/2022 1 06/13/2022 Testosterone Cyp 200 Mg/ml 4.00 28 Al Phong [id number] [facility] (4113) 0/5 Comm Ins [place] 05/22/2022 1 05/02/2022 Oxycodone Hcl (Ir) 10 Mg Tab 90.00 30 [facility] [id number] [facility] (4113) 0/0 45.00 MME Comm Ins [place] 04/21/2022 1 04/06/2022 Oxycodone Hcl (Ir) 10 Mg Tab 90.00 30 [facility] [id number] [facility] (4113) 0/0 45.00 MME Comm Ins LISA /leticia/ MARIO PERDOMO MD PHYSICIAN Signed: 04/14/2024 13:22 MARIO PERDOMO [place] [facility]
--- OUTSIDE RECORDS SUMMARY | 2024-11-20 10:03 | XMS_ITS ---
Author Name [facility] [place] Address [address] [place] [address] Care Team Providers Care Power Distribution Engineer Name Role Phone JAVI TYLER Primary Care [...] Patient's Relationship to Policy Travis [facility] 2017 [facility] T CARE NON-B ILL 2024 [facility] EMERGENCY DEPARTMENT [id number] JAVI MURGUIA PATIENT Selected Encounter This section includes the information on record at [place] for the Encounter. Date/Time Encounter Type Encounter Description Reason Pro vider Source March 31, 2024 03:21 PM Outpatient Encounter PAIN CLINIC IHE Encounter Template Text not used by [place] Plan of Treatment: Future Appointments (+ 6 [...] 20 appointments. The data comes from all [place] treatment facilities. Appointment Date/Time Appointment Type Appointme nt Facility Name April 10, 2024 11:15 AM AMBULATORY - MEDICINE [facility] May 25, 2024 02:00 PM AMBULATORY - MEDICINE [facility] [place] [facility] Jul 16, 2024 09:00 AM AMBULATORY - MEDICINE [facility] Jul 20, 2024 11:30 AM AMBULATORY - MEDICINE [facility] Aug 20, 2024 11:30 AM AMBULATORY - MEDICINE [facility] Sep 07, 2024 10:00 AM AMBULATORY - MEDICINE [facility] Lab Results: +/- 30 days of the encounter This section includes the Chemistry and Hematology Lab Results on record with [place] for the patient. Radiology Reports and Pathology Reports are provided separately, in subsequent sections. Lab Results This section contains the Chemistry/Hematology Results that were resulted 30 days before or 30 daysafter the date of the Encounter. Date/Time Source Result Type Result - Unit Interpretation Reference Range Comment April 10, 2024 12:37 PM [facility] DRUGS OF ABUSE Specimen Type: URINE Comment: [...] 10, 2024 12:13 PM Reporting Lab: [address] [address] Performing Lab: [address] [address] AMPHETAMINES SCREEN NONE-DETECTED None-Detec pranay, Cutoff = [...] and tobacco- related health factors from the [place] facility where the Encounter took place. Current Smoking Status This section includes the most current smoking, or tobacco-related health factor, from the [place] facility where the Encounter took place. Date/Time Current Smoking Status Comment Facil ity Aug 15, 2023 04:34 PM VA-TOBACCO USER EVERY DAY [facility] Tobacco Use History This section includes a history of the smoking, or tobacco-related health factors, that were collected on or before the date of the Encounter. The data comes from the [place] facility where the Encounter took place. 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 Date/Time Encounter Note(s) Provider Source March 31, 2024 03:21 PM TELEPHONE ENCOUNTER NOTE: LOCAL TITLE: TELEPHONE NOTE/SPECIALTY CLINIC STANDARD TITLE: TELEPHONE ENCOUNTER NOTE DATE OF NOTE: MARCH 31, 2024@15:21 ENTRY DATE: MARCH 31, 2024@15:21:37 AUTHOR: BLANCO VARGAS COSIGNER: URGENCY: STATUS: COMPLETED Vet req cb from provider to discuss medications. Phone number on file confirmed. /leticia/ BLANCO VARGAS ADVANCED FARE ENFORCEMENT OFFICER Signed: 03/31/2024 15:21 Receipt Acknowledged By: 04/01/2024 08:13 /leticia/ Timothy Tapia MD STAFF PHYSICIAN 04/01/2024 08:34 /leticia/ ANGELA COE CLINICAL PHARMACIST PRACTITIONER, PAIN 04/01/2024 08:34 /leticia/ ANGELA COE CLINICAL PHARMACIST PRACTITIONER, PAIN for PHILIPPE Forbes [facility]OGERSCHMID 04/01/2024 08:34 /leticia/ ANGELA COE CLINICAL PHARMACIST PRACTITIONER, PAIN for RAYSHAWN SCHMITZ BLANCO ALVAREZ [place] CN[facility]L [facility]
--- OUTSIDE RECORDS SUMMARY | 2024-11-20 10:03 | XMS_ITS | Encounter Summary ---
Author Name [place] Address [address] [place] [address] Care Team Providers Care Social Media Developer Name Role Phone JAVI TYLER Primary Care [...] Travis's Name Patient's Relationship to Policy Travis [facility] 2017 [facility] T CARE NON-B ILL 2024 [facility] EMERGENCY DEPARTMENT [id number] [phone] JAVI MURGUIA PATIENT Selected Encounter This section includes the information on record at [place] for the Encounter. Date/Time Encounter Type Encounter Description Reason Pro vider Source Feb 17, 2024 10:12 AM Outpatient Encounter PAIN CLINIC IHE Encounter Template Text not used by [place] Plan of Treatment: Future Appointments (+ 6 [...] 20 appointments. The data comes from all [place] treatment facilities. Appointment Date/Time Appointment Type Appointme nt Facility Name Feb 18, 2024 02:45 PM AMBULATORY - [place]ICINE [place] [facility] April 10, 2024 11:15 AM AMBULATORY - MEDICINE [place] [facility] May 25, 2024 02:00 PM AMBULATORY - MEDICINE [place] [facility] Jul 16, 2024 09:00 AM AMBULATORY - MEDICINE [place] [facility] Jul 20, 2024 11:30 AM AM[place]ULATORY - [place] [facility] Lab Results: +/- 30 days of the encounter This section includes the Chemistry and Hematology Lab Results on record with [place] for the patient. Radiology Reports and Pathology Reports are provided separately, in subsequent sections. Lab Results This section contains the Chemistry/Hematology Results that were resulted 30 days before or 30 daysafter the date of the Encounter. Date/Time Source Result Type Result - Unit Interpretation Reference Range Comment Feb 18, 2024 03:57 PM [facility] (wx) Specimen Type: URINE Comment: YAMEL test are qualitative, any L or H flags only indicate a VA alert was sent. This ETG test was developed and its performance characteristics determined by [place] clinical lab. The [place] Food and Drug Administration has not approved or cleared this test, FDA clearance or approval is not currently required for clinical use. ETG cutoff 500 ng/mL YAMEL Screens are for medical purposes. For confirmation use YAMEL Confirmation Add on Menu in CPRS. Ordering Provider: SE STEPHENIE WALLACE Report Released Date/Time: Jan 17, 2024 10:50 AM Reporting Lab: [facility] [address] [address] Performing Lab: [facility] [address] [facility] [address] ETG SCREEN (wx) SCREEN POS H Negative Feb 18, 2024 03:57 PM [facility] METHADONE SCREEN Specimen Type: URINE Comment: YAMEL test are qualitative, any L or H flags only indicate a VA alert was sent. Ordering Provider: SE STEPHENIE WALLACE Report Released Date/Time: Jan 17, 2024 10:50 AM Reporting Lab: [facility] [address] [facility] [address] Performing Lab: [facility] [address] [facility] [address] METHADONE SCREEN None detected(Negati ve) L Negative Feb 18, 2024 03:57 PM [facility] ALCOHOL, ETHYL URINE PANEL Specimen Type: URINE [...] have been adulterated. Ordering Provider: SE STEPHENIE WALLACE Report Released Date/Time: Jan 17, 2024 10:50 AM Reporting Lab: [address] [address] Performing Lab: [address] [address] ALCOHOL, ETHYL URINE NONE-DETECTED mg/dL NONE-DETEC PRANAY, cutoff = 10 mg/dL PH, YAMEL 6.4 [pH] 4-10 CREATININE, YAMEL 236.21 mg/dL >20 SP.GRAVITY, YAMEL 1.012 1.00 3-1.02 0 Feb 18, 2024 03:57 PM [facility] AMPHETAMINES SCREEN PANEL Specimen Type: URINE Comment: [...] have been adulterated. Ordering Provider: SE STEPHENIE WALLACE Report Released Date/Time: Jan 17, 2024 10:50 AM Reporting Lab: [address] [address] Performing Lab: [address] [address] AMPHETAMINES SCREEN NONE-DETECTED None-Detec pranay, Cutoff = 1000 ng/mL PH, YAMEL 6.4 [pH] 4-10 CREATININE, YAMEL 236.21 mg/dL >20 SP.GRAVITY, YAMEL 1.012 1.00 3-1.02 0 Feb 18, 2024 03:57 PM [facility] FENTANYL SCREEN PANEL Specimen Type: URINE Comment: [...] SENT BY LAB. Ordering Provider: SE STEPHENIE WALLACE Report Released Date/Time: Jan 17, 2024 10:50 AM Reporting Lab: [address] [address] Performing Lab: [address] [address] FENTANYL SCREEN NONE-DETECTE D ng/mL Negative: Cutoff = 1.00 ng/mL PH, YAMEL 6.4 [pH] 4-10 CREATININE, YAMEL 230.99 mg/dL >20 SP.GRAVITY, YAMEL 1.012 1.00 3-1.02 0 Feb 18, 2024 03:57 PM [facility] BENZODIAZEPINES SCREEN PANEL Specimen Type: URINE Comment: [...] have been adulterated. Ordering Provider: SE STEPHENIE WALLACE Report Released Date/Time: Jan 17, 2024 10:50 AM Reporting Lab: [address] [address] Performing Lab: [address] [address] BENZODIAZEPINES SCREEN NONE-DETECTED None-Detec pranay, Cutoff = 200 ng/mL PH, YAMEL 6.4 [pH] 4-10 CREATININE, YAMEL 236.21 mg/dL >20 SP.GRAVITY, YAMEL 1.012 1.00 3-1.02 0 Feb 18, 2024 03:57 PM [facility] BUPRENORPHINE SCREEN PANEL Specimen Type: URINE Comment: [...] have been adulterated. Ordering Provider: SE STEPHENIE WALLACE Report Released Date/Time: Jan 17, 2024 10:50 AM Reporting Lab: [address] [address] Performing Lab: [address] [address] BUPRENORPHINE (URINE) POSITIVE HH None Detected, Cutoff = 10.0 ng/mL PH, YAMEL 6.4 [pH] 4-10 CREATININE, YAMEL 236.21 mg/dL >20 SP.GRAVITY, YAMEL 1.012 1.00 3-1.02 0 Feb 18, 2024 03:57 PM [facility] CANNABINOIDS SCREEN PANEL Specimen Type: URINE Comment: [...] have been adulterated. Ordering Provider: SE STEPHENIE WALLACE Report Released Date/Time: Jan 17, 2024 10:50 AM Reporting Lab: [address] [address] Performing Lab: [address] [address] CANNABINOIDS SCREEN NONE-DETECTED None-Detec pranay,Cutoff = 50 ng/mL PH, YAMEL 6.4 [pH] 4-10 CREATININE, YAMEL 236.21 mg/dL >20 SP.GRAVITY, YAMEL 1.012 1.00 3-1.02 0 Feb 18, 2024 03:57 PM [facility] COCAINE SCREEN PANEL Specimen Type: URINE Comment: [...] have been adulterated. Ordering Provider: SE STEPHENIE WALLACE Report Released Date/Time: Jan 17, 2024 10:50 AM Reporting Lab: [address] [address] Performing Lab: [address] [address] COCAINE SCREEN NONE-DETECTED N one-Detec pranay,Cutoff = 300 ng/mL PH, YAMEL 6.4 [pH] 4-10 CREATININE, YAMEL 236.21 mg/dL >20 SP.GRAVITY, YAMEL 1.012 1.00 3-1.02 0 Feb 18, 2024 03:57 PM [facility] OPIATES SCREEN PANEL Specimen Type: URINE Comment: [...] have been adulterated. Ordering Provider: SE STEPHENIE WALLACE Report Released Date/Time: Jan 17, 2024 10:50 AM Reporting Lab: [address] [address] Performing Lab: [address] [address] OPIATES SCREEN NONE-DETECTED N one-Detec pranay, Cutoff = 300 ng/mL PH, YAMEL 6.4 [pH] 4-10 CREATININE, YAMEL 236.21 mg/dL >20 SP.GRAVITY, YAMEL 1.012 1.00 3-1.02 0 Feb 18, 2024 03:57 PM [facility] OXYCODONE SCREEN PANEL Specimen Type: URINE Comment: [...] have been adulterated. Ordering Provider: SE STEPHENIE WALLACE Report Released Date/Time: Jan 17, 2024 10:50 AM Reporting Lab: [address] [address] Performing Lab: [address] [address] OXYCODONE SCREEN NONE-DETECTED None-Detec pranay, Cutoff = 100 ng/mL PH, YAMEL 6.4 [pH] 4-10 CREATININE, YAMEL 236.21 mg/dL >20 SP.GRAVITY, YAMEL 1.012 1.00 3-1.02 0 Feb 18, 2024 03:57 PM [facility] BARBITURATES SCREEN PANEL Specimen Type: URINE Comment: [...] have been adulterated. Ordering Provider: SE STEPHENIE WALLACE Report Released Date/Time: Jan 17, 2024 10:50 AM Reporting Lab: [address] [address] Performing Lab: [address] [address] BARBITURATES SCREEN NONE-DETECTED None-Detec pranay,Cutoff = 200 ng/mL PH, YAMEL 6.4 [pH] 4-10 CREATININE, YAMEL 236.21 mg/dL >20 SP.GRAVITY, YAMEL 1.012 1.00 3-1.02 0 Feb 18, 2024 03:51 PM [facility] LIVER FUNCTION Specimen Type: SERUM No comment entered. Ordering Provider: SE STEPHENIE WALLACE Report Released Date/Time: Jan 17, 2024 10:50 AM Reporting Lab: [address] [address] Performing Lab: [address] [address] PROTEIN,TOTAL 7.0 g/dL 6.0-8.3 ALBUMIN 3.6 g/dL 3.5-5.0 ALKALINE PHOSPHATASE 69 U/L 40-150 AST 28 U/L 5-34 ALT 22 U/L BILIRUBIN, TOTAL 0.4 mg/dL 0.2-1.2 Feb 18, 2024 03:51 PM [facility] BASIC METABOLIC PANEL (non-fasting) Specimen Type: SERUM No comment entered. Ordering Provider: SE STEPHENIE WALLACE Report Released Date/Time: Jan 17, 2024 10:50 AM Reporting Lab: [address] [address] Performing Lab: [address] [address] UREA NITROGEN 10 mg/dL 7-25 GLUCOSE 103 mg/dL H 65-100 SODIUM 138 mmol/L 135-145 POTASSIUM 3.1 mmol/L L 3.5-5.0 CHLORIDE 100 mmol/L 100-110 CO2 27 meq/L 20-30 CREATININE, Serum 0.79 mg/dL 0.50-1.40 eGFR(CKD-EPI 2020) >90 mL/min >60 Feb 18, 2024 03:51 PM [facility] CBC Specimen Type: BLOOD No comment entered. Ordering Provider: SE STEPHENIE WALLACE Report Released Date/Time: Jan 17, 2024 10:50 AM Reporting Lab: [facility] [address] [address] Performing Lab: [facility] [address] [facility] [address] WBC 8.71 10*3/uL 4.50-11.00 RBC 4.33 10*6/uL [...] and tobacco- related health factors from the [place] facility where the Encounter took place. Current Smoking Status This section includes the most current smoking, or tobacco-related health factor, from the [place] facility where the Encounter took place. Date/Time Current Smoking Status Comment Katty ity Aug 15, 2023 04:34 PM VA-TOBACCO USER EVERY DAY [facility] Tobacco Use History This section includes a history of the smoking, or tobacco-related health factors, that were collected on or before the date of the Encounter. The data comes from the [place] facility where the Encounter took place. 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 Date/Time Encounter Note(s) Provider Source Feb 17, 2024 10:12 AM TELEPHONE ENCOUNTE R NOTE: LOCAL TITLE: TELEPHONE NOTE/SPECIALTY CLINIC STANDARD TITLE: TELEPHONE ENCOUNTER NOTE DATE OF NOTE: FEB 17, 2024@10:12 ENTRY DATE: FEB 17, 2024@10:12:45 AUTHOR: KENNETH HUSTON EXP COSIGNER: URGENCY: STATUS: COMPLETED Called and spoke with pt to remind them that they have a FTF appt with the Pain clinic on 02/18/2024 at 245. Location was confirmed /leticia/ KENNETH HUSTON ADVANCED DELIVERY COORDINATOR Signed: 02/17/2024 10:14 KENNETH HUSTON [facility]
--- OUTSIDE RECORDS SUMMARY | 2024-11-20 10:03 | XMS_ITS ---
Author Name [place] Address [address] [place] [address] Care Team Providers Care Clinical Specialist Medical Device Name Role Phone JAVI TYLER Primary Care [...] to Policy Travis [facility] 2017 [facility] T CARE NON-B ILL 2024 [facility] EMERGENCY DEPARTMENT [id number] [phone] JAVI MURGUIA PATIENT Selected Encounter This section includes the information on record at [place] for the Encounter. Date/Time Encounter Type Encounter Description Reason Pro vider Source May 22, 2024 11:54 AM Outpatient Encounter PAIN CLINIC IHE Encounter Template Text not used by [place] Plan of Treatment: Future Appointments (+ 6 [...] 25, 2024 02:00 PM AM[place]UL[place]ORY [place]ICINE [place] [facility] Jul 16, 2024 09:00 AM AM[place]UL[place]ORY [place]ICINE [place] [facility] Jul 20, 2024 11:30 AM AM[place]ULATORY [place]ICINE [place] [facility] Aug 20, 2024 11:30 AM AM[place]ULATORY [place]ICINE [place] [facility] Sep 07, 2024 10:00 AM AM[place]ULATORY [place]ICINE [place] [facility] Oct 09, 2024 09:30 AM AM[place]ULATORY [place]ICINE [place] [facility] Oct 15, 2024 04:00 PM AMBULATORY - REHAB MEDICIN E [place] [facility] Oct 27, 2024 01:00 PM AMBULATORY - PSYCHIATRY [place] [facility] [facility] Oct 28, 2024 10:00 AM AMBULATORY [place] MEDICINE [place] [facility] Nov 17, 2024 02:45 PM AMBULATORY [place]ICINE [place] [facility] Nov 20, 2024 10:30 AM AMBULATORY - NONE [place] [facility] Social History: Smoking Status (Most [...] 2023 04:34 PM [facility]BACCO [facility] Tobacco Use History This section includes a history of the smoking, or tobacco-related health factors, that were collected on or before the date of the Encounter. The data comes from the [place] facility where the Encounter took place. Date/Time Smoking Status/Tobacco Use Comment F acility Aug 15, 2023 04:34 PM VA-TOBACCO USE > 1 5 LESS THAN 30 YEARS [facility] [place] [facility] Aug 15, 2023 04:34 PM VA-TOBACCO USE ADVICE [place] [facility] Aug 15, 2023 04:34 PM VA-TOBACCO USE RESOLUTION REP NO [place] [facility] Aug 15, 2023 04:34 PM VA-TOBACCO USE MED NO [place] [facility] Aug 15, 2023 04:34 PM VA-TOBACCO USER EVERY DAY [facility] Encounter Notes: All associated encounter notes This section contains the clinical notes associated to the Encounter. Date/Time Encounter Note(s) Provider Source May 22, 2024 11:54 AM TELEPHONE ENCOUNTE R NOTE: LOCAL TITLE: TELEPHONE NOTE/SPECIALTY CLINIC STANDARD TITLE: TELEPHONE ENCOUNTER NOTE DATE OF NOTE: MAY 22, 2024@11:54 ENTRY DATE: MAY 22, 2024@11:54:49 AUTHOR: KENNETH HUSTON EXP COSIGNER: URGENCY: STATUS: COMPLETED Call attempt was made to remind vet they have a VVC appt with the Pain clinic on 05/25/2024 at 2pm. No answer, lvm. /leticia/ KENNETH HUSTON ADVANCED BAR TENDER Signed: 05/22/2024 11:56 KENNETH HUSTON [facility]
--- OUTSIDE RECORDS SUMMARY | 2024-11-20 10:03 | XMS_ITS | Encounter Summary ---
Author Name [facility] [facility] [place] [facility] [place] [facility] [place] Address [address] [place] [address] Care Team Providers Care Electric Clock Mechanic Name Role Phone JAVI TYLER Primary Care [...] Name Patient's Relationship to Policy Travis [facility] 2017 [facility] T CARE NON-B ILL 2024 [facility] [id number] JAVI MURGUIA PATIENT Selected Encounter This section includes the information on record at [place] for the Encounter. Date/Time Encounter Type Encounter Description Reason Pro vider Source April 10, 2024 02:13 PM Outpatient Encounter PAIN CLINIC IHE Encounter Template Text not used by [place] Plan of Treatment: Future Appointments (+ 6 [...] 20 appointments. The data comes from all [place] treatment facilities. Appointment Date/Time Appointment Type Appointme nt Facility Name May 25, 2024 02:00 PM AMBULATORY - MEDICINE [facility] [place] [facility] Jul 16, 2024 09:00 AM AMBULATORY - MEDICINE [place] [facility] [facility] Jul 20, 2024 11:30 AM AMBULATORY - MEDICINE [facility] [place] [facility] Aug 20, 2024 11:30 AM AMBULATORY - MEDICINE [facility] [place] [facility] Sep 07, 2024 10:00 AM AMBULATORY - MEDICINE [facility] [place] [facility] Oct 09, 2024 09:30 AM [facility]BULAT[facility] - [facility] Lab Results: +/- 30 days of the encounter This section includes the Chemistry and Hematology Lab Results on record with [place] for the patient. Radiology Reports and Pathology Reports are provided separately, in subsequent sections. Lab Results This section contains the Chemistry/Hematology Results that were resulted 30 days before or 30 daysafter the date of the Encounter. Date/Time Source Result Type Result - Unit Interpretation Reference Range Comment April 10, 2024 12:37 PM [facility] DRUGS OF ABUSE Specimen Type: [...] April 10, 2024 12:13 PM Reporting Lab: [address] [id number] Performing Lab: [address] [id number] AMPHETAMINES SCREEN NONE-DETECTED None-Detec pranay, Cutoff = 1000 ng/mL BENZODIAZEPINES SCREEN POSITIVE HH None-Detec pranay, Cutoff = 200 ng/mL COCAINE SCREEN NONE-DETECTED N one-Detec pranay,Cutoff = 300 ng/mL OPIATES SCREEN NONE-DETECTED N one-Detec pranya, Cutoff = 300 ng/mL CANNABINOIDS SCREEN NONE-DETECTED [...] and tobacco- related health factors from the [place] facility where the Encounter took place. Current Smoking Status This section includes the most current smoking, or tobacco-related health factor, from the [place] facility where the Encounter took place. Date/Time Current Smoking Status Comment Facil ity Aug 15, 2023 04:34 PM VA-TOBACCO USER EVERY DAY [facility] Tobacco Use History This section includes a history of the smoking, or tobacco-related health factors, that were collected on or before the date of the Encounter. The data comes from the [place] facility where the Encounter took place. 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 Date/Time Encounter Note(s) Provider Source April 10, 2024 02:13 PM ADMINISTRATIVE NOT E: LOCAL TITLE: ADMINISTRATIVE RECALL NOTE STANDARD TITLE: ADMINISTRATIVE NOTE DATE OF NOTE: APRIL 10, 2024@14:13 ENTRY DATE: APRIL 10, 2024@14:13:09 AUTHOR: KENNETH HUSTON EXP COSIGNER: URGENCY: STATUS: COMPLETED RTC orders: Unable to contact patient: Attempts to contact: 1st attempt: Left voicemail 2nd attempt: Letter mailedDisposition onApr 3rd attempt: 4th attempt: /leticia/ KENNETH HUSTON ADVANCED INSPECTOR FINAL ASSEMBLY CONVEYOR LINE Signed: 04/10/2024 14:13 KENNETH HUSTON [place] [facility] [place] [facility] April 10, 2024 02:13 PM LETTERS: LOCAL TITLE: PATIENT LETTER (B) STANDARD TITLE: LETTERS DATE OF NOTE: APRIL 10, 2024@14:13 ENTRY DATE: APRIL 10, 2024@14:13:43 AUTHOR: KENNETH HUSTON EXP COSIGNER: URGENCY: STATUS: COMPLETED [facility] Toll Free Number ext [phone] [facility] scheduling can be reached at ext. [phone] [facility]- ext. [phone] [facility]- ext. [phone] [facility]- ext. [phone] APRIL 10, 20[address]AV[address] DAMON [address] [place] [id number] Dear JAVI DAMON Thank you for choosing the Department of [facility] ([place]) [facility] as your primary choice for health care. As a partner in your health care, we are contacting you in writing since we have been unsuccessful in our attempts to reach you to date. We want to assure you we are doing everything possible to schedule Veterans for their VA medical care appointments. Our records indicate you are due for an appointment in pain clinic. If you would like to be seen, please contact [place] Call Center at ext. [phone] to schedule an appointment. Thank you for your service to our nation, and we look forward to hearing from you soon. Sincerely, [facility] [address] [facility] [address] [place] [address] [place] [address] ext [phone] [facility] [address] [facility] [address] [place] [address] [place] [address] ext. [phone] [facility] [address] [address] [place] [address] ext. [phone] KENNETH HUSTON [place] [facility]
--- OUTSIDE RECORDS SUMMARY | 2024-11-20 10:03 | XMS_ITS ---
Author Name [facility] [place] [facility] [place] [facility] [place] Address [address] [place] [address] Care Team Providers Care Director Of Database Marketing Name Role Phone JAVI TYLER Primary Care [...] Travis's Name Patient's Relationship to Policy Travis [facility] 2017 [facility] DIRE T CARE NON-B ILL 2024 [facility] [id number] [phone] JAVI MURGUIA PATIENT Selected Encounter This section includes the information on record at [place] for the Encounter. Date/Time Encounter Type Encounter Description Reason Provider Source Jan 16, 2024 11:48 AM QNHP OL DIG ASSMT&MGMT 11-20 PAIN CLINIC ICD-10-CM G89.21 Chronic pain due to trauma RAYSHAWN DEY IHE Encounter Template Text not used by [place] Assessments - Encounter Diagnoses This section includes the primary and secondary diagnoses documented for the Encounter. Date/Time Primary/Secondary Diagnosis Diagnosis Name Provider Source Jan 16, 2024 12:01 PM PRIMARY Chronic pain due to trauma RAYSHAWN DEY [place] [facility] [place] [facility] Plan of Treatment: Future Appointments (+ 6 months) and Future Tests (+/- 45 days) The Plan of Treatment section includes future care activities for the patient from all [place] [facility] This section includes future appointments and future orders which are active, pending or scheduled. Future Appointments This section includes appointments that were scheduled to occur 6 months from the date of the Encounter, up to a maximum of 20 appointments. The data comes from all [place] treatment facilities. Appointment Date/Time Appointment Type Appointme nt Facility Name Feb 18, 2024 02:45 PM AMBULATORY - MEDICINE [place] [facility] April 10, 2024 11:15 AM AMBULATORY - MEDICINE [place] [facility] May 25, 2024 02:00 PM AMBULATORY - MEDICINE [place] [facility] Jul 16, 2024 09:00 AM AMBULATORY - MEDICINE [facility] Social History: Smoking Status (Most current) and Tobacco Use (All prior to encounter date) This section includes the most current, and the historical, smoking and tobacco- related health factors from the [place] facility where the Encounter took place. Current Smoking Status This section includes the most current smoking, or tobacco-related health factor, from the [place] facility where the Encounter took place. Date/Time Current Smoking Status Comment Katty ity Aug 15, 2023 04:34 PM VA-TOBACCO USER EVERY DAY [facility] Tobacco Use History This section includes a history of the smoking, or tobacco-related health factors, that were collected on or before the date of the Encounter. The data comes from the [place] facility where the Encounter took place. 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 Date/Time Encounter Note(s) Provider Source Jan 16, 2024 12:03 PM ACCOUNTING OF DISC LOSURES NOTE: LOCAL TITLE: STATE PRESCRIPTION DRUG MONITORING PROGRAM STANDARD TITLE: ACCOUNTING OF DISCLOSURES NOTE DATE OF NOTE: JAN 16, 2024@12:03:13 ENTRY DATE: JAN 16, 2024@12:03:13 AUTHOR: RAYSHAWN DEY EXP COSIGNER: URGENCY: STATUS: COMPLETED This PDMP query was submitted by Rayshawn Dey. The clinical justification for this PDMP query is to review controlled substances prescribed outside of the VA, and any additional information that may become available, as an important component of standard clinical care, and in accordance with [facility] policy. Patient information was shared with the PDMP [employer] [place]. Prescription(s) filled outside the VA in the last 90 days are noted. However, they do not raise significant safety concerns and do not influence the treatment plan at this time. Testosterone cyp 200mg/ml filled on 12/18/23 at [facility] in [place] /leticia/ RAYSHAWN DEY, PHARM.D CLINICAL PHARMACIST PRACTITIONER Signed: 01/16/2024 12:06 RAYSHAWN DEY [facility] Jan 16, 2024 12:03 PM PAIN MEDICATION MG T NOTE: LOCAL TITLE: OPIOID/CONTROLLED SUBSTANCE NOTE STANDARD TITLE: PAIN MEDICATION MGT NOTE DATE OF NOTE: JAN 16, 2024@12:03 ENTRY DATE: JAN 16, 2024@12:03:39 AUTHOR: RAYSHAWN DEY EXP COSIGNER: URGENCY: STATUS: COMPLETED OPIOID/CONTROLLED SUBSTANCE NOTE Controlled Substance Renewal Request REQUESTED MEDICATIONS: Oxycodone IR 5mg MAIL TO PATIENT A valid consent for Long-Term Opioid therapy for Pain is required for opioid duration of 90 days or greater. CONSENT FOR LONG-TERM OPIOIDS FOR PAIN Apr 19, 2023 Prescription Drug Monitoring Program (PDMP): A PDMP note is required at every new prescription for a controlled substance. PDMP HISTORY 1 YEAR Info Disclosed: Patient Demographics Purpose: Accessing Prescription Drug Monitoring Program (PDMP) databases for review of controlled substances prescribed outside of the VA, and any additional information that may become available, as an important component of standard clinical care and in accordance with [facility] policy. 03/27/23 16:47 Philippe Perdomo MD PDMP [employer] [place] 04/05/23 10:43 Philippe Perdomo MD PDMP [employer] [place] 04/19/23 09:15 Philippe Perdomo MD PDMP [employer] [place] 07/01/23 16:19 Philippe Perdomo MD PDMP [employer] [place] 07/01/23 16:28 MorferPhilippe frye MD PDMP [employer] [place] 07/01/23 22:01 Philippe Perdomo MD PDMP [employer] [place] 07/22/23 16:43 Philippe Perdomo MD PDMP [employer] [place] 08/26/23 15:29 Philippe Perdomo MD PDMP [employer] [place] 09/12/23 11:25 Philippe Perdomo MD PDMP [employer] [place] 10/23/23 15:30 Philippe Perdomo MD PDMP [employer] [place] 11/22/23 13:40 Philippe Perdomo MD PDMP [employer] [place] 11/27/23 17:39 Philippe Perdomo MD PDMP [employer] [place] 12/18/23 11:40 Philippe Perdomo MD PDMP [employer] [place] 01/16/24 12:02 TiburcioRayshawn Marco PDMP [employer] [place] Urine Drug Screen: A urine drug screen is required prior to reaching 90 days of opioid therapy and at least annually thereafter. Collection DT Specimen Test Name Result Units Ref Range 09/12/2023 13:08 URINE !! OPIATES SCREEN POSITIVE H* Ref: None-Detected, Cutoff = 300 ng/mL 09/12/2023 13:08 URINE !! OXYCODONE SCREEN POSITIVE H* Ref: None-Detected, Cutoff = 100 ng/mL 09/12/2023 13:08 URINE !! BenzoSc NONE-DETECTED Ref: None-Detected, Cutoff = 200 ng/mL 09/12/2023 13:08 URINE !! COCAINE SCREEN NONE-DETECTED Ref: None-Detected,Cutoff = 300 ng/mL 09/12/2023 13:08 URINE !! CANNABINOIDS SCRENONE-DETECTED Ref: None-Detected,Cutoff = 50 ng/mL 09/12/2023 13:08 URINE !! ALCOHOL, ETHYL URPOSITIVE H* mg/dL Ref: NONE-DETECTED, cutoff = 10 mg/dL 09/12/2023 13:08 URINE !! AMPHETAMINES SCRENONE-DETECTED Ref: None-Detected, Cutoff = 1000 ng/mL 09/12/2023 13:08 URINE !! BupreUr POSITIVE H* Ref: None Detected, Cutoff = 10.0 ng/mL !! Indicates COMMENTS AVAILABLE...Refer to Interim Lab Report. Most Recent Naloxone Prescription Information: No prior Naloxone prescription was found. /ashley DEY, PHARM.D CLINICAL PHARMACIST PRACTITIONER Signed: 01/16/2024 12:06 Receipt Acknowledged By: 01/16/2024 14:38 /leticia/ Dinah Alicia MD INTERNAL MEDICINE and RHEUMATOLOGY RAYSHAWN DEY [place] [facility] [place] [facility] Jan 16, 2024 11:30 AM TELEPHONE ENCOUNTE R NOTE: LOCAL TITLE: TELEPHONE ADVICE PROGRESS NOTE STANDARD TITLE: TELEPHONE ENCOUNTER NOTE DATE OF NOTE: JAN 16, 2024@11:30 ENTRY DATE: JAN 16, 2024@11:48:53 AUTHOR: RAYSHAWN DEY EXP COSIGNER: URGENCY: STATUS: COMPLETED TELEPHONE ADVICE PROGRESS NOTE Has ADDENDA Spoke to patient over the phone on 01/16/24 at 11:30. Patient stated that he has developed night time sweat since an increased in Buprenorphine 2mg at 1 tablet every 12 hours to Buprenorphine 2mg at 1 tablet every 8 hours. He report it has occurred for about one month since the dose increased; he state he notice this more at about that time. He report that night time sweat doesn't happen every night but he would wake up with pillow soak and bed is wet. He had tried sleeping without covering himself with blanket but report still has sweating. He also stated that buprenorphine 2mg at 1 tablet every 12 hours didn't cause night sweat but his pain is not as control as with buprenorphine 2mg at 1 tablet every 8 hours. Informed that he can go back down to buprenorphine 2mg at 1 tablet every 12 hours if night time sweating with 3 tablets per day (6mg/day) is bothersome. [place] acknowledges this. /ashley DEY, PHARM.D CLINICAL PHARMACIST PRACTITIONER Signed: 01/16/2024 12:01 Receipt Acknowledged By: 01/17/2024 10:27 /leticia/ PHILIPPE PERDOMO MD PHYSICIAN 01/16/2024 ADDENDUM STATUS: COMPLETED [place] also request a renewal of Oxycodone 5mg IR. /ashley DEY, PHARM.D CLINICAL PHARMACIST PRACTITIONER Signed: 01/16/2024 12:07 RAYSHAWN DEY [place] [facility]
--- OUTSIDE RECORDS SUMMARY | 2024-11-20 10:03 | XMS_ITS ---
Author Name [facility] [place] Address [address] [place] [address] Care Team Providers Care Real Estate Services Coordinator Name Role Phone JAVI TYLER Primary Care [...] Patient's Relationship to Policy Travis [facility] 2017 [facility] DIRE T CARE NON-B ILL 2024 [facility] [id number] JAVI MURGUIA PATIENT Selected Encounter This section includes the information on record at [place] for the Encounter. Date/Time Encounter Type Encounter Description Reason Provider Source Jan 17, 2024 10:30 AM OFFICE O/P EST HI 40 MIN PAIN CLINIC ICD-10-CM M54.2 Cervicalgia KUPFERSCHMID,S ETH B IHE Encounter Template Text not used by [place] Assessments - Encounter Diagnoses This section includes the primary and secondary diagnoses documented for the Encounter. Date/Time Primary/Secondary Diagnosis Diagnosis Name Provider Source Jan 17, 2024 11:08 AM PRIMARY Cervicalgia [place] PHILIPPE B [place] [facility] [place] [facility] Jan 17, 2024 11:08 AM SECONDARY Alcohol dependence, uncomplicated KUPFERSCHMID, PHILIPPE B [facility] Jan 17, 2024 11:08 AM SECONDARY Chronic pain due to trauma KUPFERSCHMID, PHILIPPE B [facility] Jan 17, 2024 11:08 AM SECONDARY Headache, unspecified KUPFERSCHMID, [facility]ILIPPE B [facility] Jan 17, 2024 11:08 AM SECONDARY Pain in unspecified shoulder KUPFERSCHMID, PHILIPPE B [facility] Jan 17, 2024 11:08 AM SECONDARY Post-traumatic stress disorder, unspecified KUPFERSCHMID, PHILIPPE B [facility] Plan of Treatment: Future Appointments (+ 6 months) and Future Tests (+/- 45 days) The Plan of Treatment section includes future care activities for the patient from all [place] [facility] This section includes future appointments and future orders which are active, pending or scheduled. Future Appointments This section includes appointments that were scheduled to occur 6 months from the date of the Encounter, up to a maximum of 20 appointments. The data comes from all [place] treatment facilities. Appointment Date/Time Appointment Type Appointme nt Facility Name Feb 18, 2024 02:45 PM [facility] April 10, 2024 11:15 AM [facility] May 25, 2024 02:00 PM [facility] Jul 16, 2024 09:00 AM [facility] Social History: Smoking Status (Most current) and Tobacco Use (All prior to encounter date) This section includes the most current, and the historical, smoking and tobacco- related health factors from the [place] facility where the Encounter took place. Current Smoking Status This section includes the most current smoking, or tobacco-related health factor, from the [place] facility where the Encounter took place. Date/Time Current Smoking Status Comment Katty kingy Aug 15, 2023 04:34 PM VA-TOBACCO USER EVERY DAY [facility] Tobacco Use History This section includes a history of the smoking, or tobacco-related health factors, that were collected on or before the date of the Encounter. The data comes from the [place] facility where the Encounter took place. 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 Encounter Notes: All associated encounter notes This section contains the clinical notes associated to the Encounter. Date/Time Encounter Note(s) Provider Source Jan 17, 2024 10:30 AM PAIN MEDICINE OUTPATIENT NOTE: LOCAL TITLE: PAIN CLINIC NOTE STANDARD TITLE: PAIN MEDICINE OUTPATIENT NOTE DATE OF NOTE: JAN 17, 2024@10:30 ENTRY DATE: JAN 17, 2024@10:30:58 AUTHOR: PHILIPPE WALLACE EXP COSIGNER: URGENCY: STATUS: COMPLETED CURRENT ======= He requested a visit. Reviewed visit with Isac Dey yesterday. ETOH - 2-3 shots at night. Pain - usually around a 5/10. Spacing out oxycodone. Ankle swelling, was terrible last week. Penitentiary papers almost finished. Seeing Shailesh more. Seeing son less. Thinks of moving to [place] someday. PAIN-RELATED MEDICATIONS Buprenorphine 10/2021 Oxycodone Paroxetine 40 mg Quetiapine 50-150 mg qhs Testosterone Amitriptyline 25 mg, Zolpidem - caused sleep walking PAIN-RELATED CONDITIONS PCP at [facility], Jose Fried Cervical and lumbar spine issues Right shoulder worse than left Knees Alcohol use disorder, [place] [facility] November 12 to Dec 30, 2022. 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 Cigs: 11/12 ppd ETOH: Quit 11/2022 Substances: None RISK MITIGATION UDS: 09/2023 PDMP: 01/16/2024 Consent: 04/19/2023 EXAM (Telephone only) Needed to be told to slow down and redirected at times. Shay that but uncertain if he is taking in information. === PLAN === Mr. 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 01/17/2024 PTSD: Don, Peer Support, is helping find therapist. ETOH: Suspect it is more [...] benefit of reducing (stopping better).Labs reviewed with [place], consistent with alcohol use. SLEEP: Quetiapine helpful. [...] Don (Peer Support)are helpful. Stopped going to [employer], It was just a bitch session. Encouraged need to continue treatment. He said PTSD messes with the thinking. ORTHOSTATIC EPISODES: resolved. NUTRITION: Reports he is eating better, albumin likely improved from 3.1. ENDOCRINE: Testosterone from Urologist TRANSITION: Discussed stress of group home, loss of structure and mission. Thank you for giving a shit. Not many people do. 11/15/2023 Trying to appear stable Minimizes recent events. Ongoing complaint of apparent orthostatic dizziness -F/U with PC Letter for work Short ETOH relapse Working with Jammie Villanueva for MH Continue plan below with close f/u [place] and I formulated the plan through shared medical-decision making. repeated the plan back to me and had no further questions at end of appointment. APPOINTMENT LENGTH: 45 minutes FOLLOW-UP: 4 weeks MEDICATION and RECONCILIATION === Active Outpatient Medications (including Supplies): Issue Date Status Last Fill Active Outpatient Medications Refills Expiration 1) BUPRENORPHINE HCL 2MG SUBLINGUAL TAB ACTIVE Issu:12-18-23 Qty: 90 for 30 days Sig: DISSOLVE ONE Refills: 1 Last:12-25-23 TABLET UNDER THE TONGUE EVERY 8 HOURS Expr:06-19-24 FOR CHRONIC PAIN 2) CETIRIZINE HCL 10MG TAB Qty: 90 for 90 ACTIVE (S) Issu:11-13-23 days Sig: TAKE ONE TABLET BY MOUTH Refills: 2 Last:02-01-24 ONCE DAILY FOR ALLERGIES Expr:11-13-24 3) OXYCODONE HCL 5MG TAB NOT SA Qty: ACTIVE Issu:01-16-24 112 for 28 days Sig: TAKE ONE TABLET Refills: 0 Last:01-16-24 BY MOUTH FOUR TIMES A DAY NEXT FILL Expr:02-15-2402/13 4) PAROXETINE HCL 40MG TAB Qty: 90 for 90 ACTIVE (S) Issu:11-13-23 days Sig: TAKE ONE TABLET BY MOUTH Refills: 0 Last:02-01-24 ONCE DAILY Expr:11-13-24 5) QUETIAPINE FUMARATE 100MG TAB Qty: 60 ACTIVE Issu:12-18-23 for 60 days Sig: TAKE ONE TABLET BY Refills: 2 Last:12-18-23 MOUTH AT BEDTIME FOR SLEEP Expr:12-18-24 6) QUETIAPINE FUMARATE 50MG TAB Qty: 60 ACTIVE Issu:10-24-23 for 60 days Sig: TAKE ONE TABLET BY Refills: 0 Last:11-28-23 MOUTH AT BEDTIME NEEDED FOR SLEEP Expr:10-24-24 7) SILDENAFIL CITRATE 100MG TAB Qty: 6 for ACTIVE Issu:11-13-23 30 days Sig: TAKE ONE TABLET BY MOUTH Refills: 10 Last:12-06-23 ONCE DAILY TAKE 1 HOUR PRIOR TO Expr:11-13-24 SEXUAL ACTIVITY Start Date Active Non-VA Medications Refills Expiration 1) Non-VA ALBUTEROL 90MCG (CFC-F) 200D ORAL ACTIVE INHL Si PUFFS BY MOUTH EVERY 4 HOURS 2) Non-VA AMLODIPINE BESYLATE 5MG TAB Sig: ACTIVE 5MG BY MOUTH ONCE DAILY 3) Non-VA ATORVASTATIN CALCIUM 40MG TAB ACTIVE SiMG BY MOUTH ONCE DAILY 4) Non-VA CYCLOBENZAPRINE HCL TAB Sig: ACTIVE 7.5MG BY MOUTH THREE TIMES A DAY 5) Non-VA FLUTICASONE/SALMETEROL (WIXELA) ACTIVE INHL,ORAL Si PUFF FLUTICAS 250/SALMETEROL 50 INHL DISK 60 BY MOUTH TWICE DAILY 6) Non-VA MAGNESIUM OXIDE TAB Sig: BY ACTIVE MOUTH 7) Non-VA WJJMC-2-RDZC ETHYL ESTERS 1000MG ACTIVE CAP SiMG BY MOUTH TWICE DAILY 8) Non-VA OMEPRAZOLE 20MG EC CAP SiMG ACTIVE BY MOUTH EVERY MORNING 30 MINUTES BEFORE BREAKFAST 9) Non-VA POTASSIUM CHLORIDE 10MEQ SA TAB ACTIVE SiMEQ BY MOUTH ONCE DAILY 10) Non-VA TERAZOSIN HCL 10MG CAP SiMG ACTIVE BY MOUTH ONCE DAILY 11) Non-VA TESTOSTERONE CYPIONATE PA-F ACTIVE INJ,SOLN Sig: INTRAMUSCULARLY 12) Non-VA TIOTROPIUM 1.25MCG/ACTUAT 60D ACTIVE ORAL INHL Si PUFFS BY MOUTH ONCE DAILY 19 Total Medications ACTIVE PROBLEMS Active problems - Computerized Problem List is the source for the followin. Exposure to potentially hazardous substance 2. Erectile Dysfunction ([facility] [id number]) 3. Neck Pain ([facility] [id number]) 4. Pain of Right Knee ([facility] [id number]) 5. Shoulder Pain ([facility] [id number]) 6. Low testosterone 7. GERD - Gastro-Esophageal Reflux Disease ([facility] [id number]) 8. Headache ([facility] [id number]) 9. Allergic Rhinitis ([facility] [id number]) 10. Concussion with loss of consciousness 11. Asthma ([facility] [id number]) 12. SAS - Sleep apnoea syndrome 13. [...] coordinating care, and completing the medical record. [place] [employer] Connect (VV) Standard Documentation VV Clinician Resources Only: E911 (Emergency Call Relay Center): [phone] [facility] Crisis Line - 988 then press #1. AISHA Suicide Coordinator [phone], Ext. [phone]; Back-up Ext. [phone] [place] Police, Missael LEONARD [phone] Introduction: Visit is being conducted by [place] [employer]. identified with 2 identifiers: [X] Full Name [X] Date of [ ] [place] ID Card Emergency Plan: confirmed and/or provided the following information in case of emergency or technology failure. PATIENT PHONE - PHONE NUMBER [CELLULAR] - Is patient phone number correct, if not, enter below: [place]'s phone number: JAVI NOLAN [address], [address] [place]'s present location and address for appointment: Home [place]'s emergency contact name and phone number: Listed [place] reported that location is private and safe: Yes Informed Consent: [place] informed of the risks and benefits of Telehealth video care. has the right to refuse video services. If refuses video visit, a [id number] visit will be scheduled. [place] verbalized consent for this video visit: Yes [place] provided consent for any other persons present for visit: No If yes, who and relationship to patient: Secure visit: Visit was locked for security and privacy:Yes /leticia/ PHILIPPE WALLACE MD PHYSICIAN Signed: 01/17/2024 11:09 KUPPHILIPPE ARSHADMichael [facility]
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
--- OUTSIDE RECORDS SUMMARY | 2024-11-20 10:03 | XMS_ITS ---
Author Name [place] Address [address] [place] [address] Care Team Providers Care Magnetic Resonance Imaging Director Name Role Phone JAVI TYLER Primary [...] Patient's Relationship to Policy Travis [facility] 2017 [facility] CARE NON-B ILL 2024 [facility] [id number] JAVI MURGUIA PATIENT Selected Encounter This section includes the information on record at [place] for the Encounter. Date/Time Encounter Type Encounter Description Reason Pro vider Source March 31, 2024 08:43 PM Outpatient Encounter ADMIN PAT ACTIVTIES (MASNONCT) IHE Encounter Template Text not used by [place] Plan of Treatment: Future Appointments (+ 6 [...] 20 appointments. The data comes from all [facility] facilities. Appointment Date/Time Appointment Type Appointme nt Facility Name April 10, 2024 11:15 AM AMBULATORY - [place]ICINE [place] [facility] [place] [facility] May 25, 2024 02:00 PM AMBULATORY [place] MEDICINE [place] [facility] [place] [facility] Jul 16, 2024 09:00 AM AMBULATORY - [facility]ICINE [facility] Jul 20, 2024 11:30 AM AMBULATORY - MEDICINE [place] [facility] [place] [facility] Aug 20, 2024 11:30 AM AMBULATORY - MEDICINE [facility] Sep 07, 2024 10:00 AM AMBULATORY - MEDICINE [facility] Lab Results: +/- 30 days of the encounter This section includes the Chemistry and Hematology Lab Results on record with [place] for the patient. Radiology Reports and Pathology Reports are provided separately, in subsequent sections. Lab Results This section contains the Chemistry/Hematology Results that were resulted 30 days before or 30 daysafter the date of the Encounter. Date/Time Source Result Type Result - Unit Interpretation Reference Range Comment April 10, 2024 12:37 PM [facility] DRUGS OF ABUSE Specimen Type: [...] April 10, 2024 12:13 PM Reporting Lab: [address] [id number] Performing Lab: [address] [id number] AMPHETAMINES SCREEN NONE-DETECTED None-Detec pranay, Cutoff = [...] and tobacco- related health factors from the [place] facility where the Encounter took place. Current Smoking Status This section includes the most current smoking, or tobacco-related health factor, from the [place] facility where the Encounter took place. Date/Time Current Smoking Status Comment Facil ity Aug 15, 2023 04:34 PM VA-TOBACCO USER EVERY DAY [facility] Tobacco Use History This section includes a history of the smoking, or tobacco-related health factors, that were collected on or before the date of the Encounter. The data comes from the [place] facility where the Encounter took place. 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 Encounter Notes: All associated encounter notes This section contains the clinical notes associated to the Encounter. Date/Time Encounter Note(s) Provider Source March 31, 2024 08:43 PM PHARMACY NOTE: LOCAL TITLE: PHARMACY CUSTOMER CARE MEDICATION RENEWAL STANDARD TITLE: PHARMACY NOTE DATE OF NOTE: MARCH 31, 2024@20:43 ENTRY DATE: MARCH 31, 2024@20:44:51 AUTHOR: YVETTE DOWNS COSIGNER: URGENCY: STATUS: COMPLETED Date: March Division: [facility] referred by Pharmacy Call Center for medication renewal: Controlled substance Medications requested: [id number] DIAZEPAM 5MG TAB Defer to specialty clinic To be picked up . Please review and renew if appropriate. *This note was generated by [facility]/[place] Pharmacy Customer Care. If you have any questions or need assistance, do not contact this author. Please refer all questions to your local, on-site pharmacy departments. /leticia/ YVETTE DOWNS CPhT [place], [place]/Pharmacy Customer Care Signed: 03/31/2024 20:51 Receipt Acknowledged By: 04/01/2024 08:34 /leticia/ ANGELA COE CLINICAL PHARMACIST PRACTITIONER, PAIN for YVETTE GAMBLE [facility]
--- OUTSIDE RECORDS SUMMARY | 2024-11-20 10:04 | XMS_ITS | Encounter Summary ---
Author Name [place] Address [address] [place] [address] Care Team Providers Care Minister Helper Name Role Phone JAVI TYLER Primary [...] to Policy Travis [facility] 2017 [facility] T CARE NON-B ILL 2024 [facility] [id number] JAVI MURGUIA PATIENT Selected Encounter This section includes the information on record at [place] for the Encounter. Date/Time Encounter Type Encounter Description Reason Pro vider Source Aug 07, 2024 08:32 AM Outpatient Encounter CLINICAL PHARMACY IHE Encounter Template Text not used by [place] Plan of Treatment: Future Appointments (+ 6 [...] Date/Time Appointment Type Appointme nt Facility Name Aug 20, 2024 11:30 AM AMBULATORY [facility]ICINE [facility] [place] [facility] Sep 07, 2024 10:00 AM AMBULATORY - MEDICINE [facility] [place] [facility] Oct 09, 2024 09:30 AM AMBULATORY - MEDICINE [facility] [place] [facility] Oct 15, 2024 04:00 PM AMBULATORY - REHAB MEDICIN E [facility] [place] [facility] Oct 27, 2024 01:00 PM AMBULATORY - PSYCHIATRY [facility] [place] [facility] Oct 28, 2024 10:00 AM AMBULATORY - MEDICINE [facility] [place] [facility] Nov 17, 2024 02:45 PM AMBULATORY - MEDICINE [facility] [place] [facility] Nov 20, 2024 10:30 AM AMBULATORY - NONE [facility] [place] [facility] Nov 26, 2024 02:00 PM AMBULATORY - PSYCHIATRY [facility] [place] [facility] Dec 02, 2024 11:00 AM AMBULATORY - MEDICINE [facility] [place] [facility] Dec 03, 2024 02:00 PM AMBULATORY - PSYCHIATRY [facility] [place] [facility] Dec 10, 2024 02:00 PM AMBULATORY - PSYCHIATRY [facility] [place] [facility] Jan 04, 2025 11:00 AM AMBULATORY - MEDICINE [facility] [place] [facility] Jan 15, 2025 09:45 AM AMBULATORY - MEDICINE [facility] [place] [facility] Active, Pending, and Scheduled Orders This section includes a listing of several types of active, pending, and scheduled orders, including clinic medications orders, diagnostic test orders, procedure orders and consult orders; where the start date of the order is 45 days before the date of the Encounter or 45 days after the date of theEncounter. The data comes from all [place] treatment facilities. Test Date/Time Test Type Test Details Facility Name Aug 20, 2024 12:15 PM Consult Order COMMUNITY CARE-PULMONARY Cons Secondary Art Teacher's Choice [facility] [place] [facility] Aug 20, 2024 12:15 PM Consult Order COMMUNITY CARE-COLONOSCOPY SURVEILLANCE Cons Secondary Art Teacher's Choice [facility] [place] [facility] Aug 20, 2024 12:15 PM Consult Order COMMUNITY CARE-MICA PASTER Cons Secondary Art Teacher's Choice [facility] [place] [facility] Aug 20, 2024 12:15 PM Consult Order COMMUNITY CARE-UROLOGY Cons Secondary Art [facility] Social History: Smoking Status (Most current) [...] VA-TOBACCO DOESNT USE WI 30 MIN [facility] Tobacco Use History This section includes a history of the smoking, or tobacco-related health factors, that were collected on or before the date of the Encounter. The data comes from the [place] facility where the Encounter took place. 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 Date/Time Encounter Note(s) Provider Source Aug 07, 2024 08:32 AM PHARMACY OUTPATIEN T MEDICATION MGT NOTE: LOCAL TITLE: PHARMACY OUTPATIENT MEDICATION NOTE STANDARD TITLE: PHARMACY OUTPATIENT MEDICATION MGT NOTE DATE OF NOTE: AUG 07, 2024@08:32 ENTRY DATE: AUG 07, 2024@08:32:25 AUTHOR: ELY BELTRAN COSIGNER: URGENCY: STATUS: COMPLETED Received request from call center for Non-VA FLUTICASONE/SALMETEROL (WIXELA) INHL,ORAL. This is listed as a medication the gets outside the VA. will need a prescription for the medication if he wants to receive from the VA. Adding PCP team so they are aware of request for Non-VA FLUTICASONE/SALMETEROL (WIXELA. Please review and call regarding request. /leticia/ ELY BELTRAN PHARMD CLINICAL PHARMACIST Signed: 08/07/2024 08:34 Receipt Acknowledged By: 08/07/2024 12:28 /es/ JAVI TYLER MD PHYSICIAN 08/07/2024 14:38 /es/ WILLIAM PLAZA, MSN, RN, CNL PRIMARY CARE TEAM NURSE ELY BELTRAN [facility]
--- OUTSIDE RECORDS SUMMARY | 2024-11-20 10:04 | XMS_ITS ---
Author Name [facility] [place] Address [address] [place] [address] Care Team Providers Care Switchman Name Role Phone JAVI TYLER Primary Care [...] Travis's Name Patient's Relationship to Policy Travis [facility] 2017 [facility] NON-B ILL 2024 [facility] [id number] [phone] JAVI MURGUIA PATIENT Selected Encounter This section includes the information on record at [place] for the Encounter. Date/Time Encounter Type Encounter Description Reason Pro vider Source Jun 23, 2024 01:46 PM Outpatient Encounter SUBSTANCE USE DISORDER IND [...] 20 appointments. The data comes from all [place] treatment facilities. Appointment Date/Time Appointment Type Appointme nt Facility Name Jul 16, 2024 09:00 AM AMBULATORY - MEDICINE [facility] [place] [facility] Jul 20, 2024 11:30 AM AMBULATORY - MEDICINE [facility] [place] [facility] Aug 20, 2024 11:30 AM AMBULATORY - MEDICINE [facility] [place] [facility] Sep 07, 2024 10:00 AM AMBULATORY - MEDICINE [facility] [place] [facility] Oct 09, 2024 09:30 AM AMBULATORY - MEDICINE [facility] [place] [facility] Oct 15, 2024 04:00 PM AMBULATORY - REHAB MEDICIN E [facility] [place] [facility] Oct 27, 2024 01:00 PM AMBULATORY - PSYCHIATRY [facility] [place] [facility] Oct 28, 2024 10:00 AM AMBULATORY - MEDICINE [facility] [place] [facility] Nov 17, 2024 02:45 PM AMBULATORY - MEDICINE [facility] [place] [facility] Nov 20, 2024 10:30 AM AMBULATORY - NONE [facility] [place] [facility] Nov 26, 2024 02:00 PM AMBULATORY - PSYCHIATRY [facility] [place] [facility] Dec 02, 2024 11:00 AM AMBULATORY - MEDICINE [facility] [place] [facility] Dec 03, 2024 02:00 PM AMBULATORY - PSYCHIATRY [facility] [place] [facility] Dec 10, 2024 02:00 PM AMBULATORY - PSYCHIATRY [place] [facility] [place] [facility] Social History: Smoking Status (Most current) and Tobacco Use (All prior to encounter date) This section includes the most current, and the historical, smoking and tobacco- related health factors from the [place] facility where the Encounter took place. Current Smoking Status This section includes the most current smoking, or tobacco-related health factor, from the [place] facility where the Encounter took place. Date/Time Current Smoking Status Comment Katty dacosta Aug 15, 2023 04:34 PM VA-TOBACCO USER EVERY DAY [place] [facility] [place] [facility] Tobacco Use History This section includes a history of the smoking, or tobacco-related health factors, that were collected on or before the date of the Encounter. The data comes from the [place] facility where the Encounter took place. 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 4. States that his VA Claim needs to be redone and left a call back of [phone]. /leticia/ DELLA ORTEGA PARTY DEMONSTRATOR Signed: 06/23/2024 13:48 Receipt Acknowledged By: 06/23/2024 13:53 /leticia/ DELLA KOCH [facility]
--- OUTSIDE RECORDS SUMMARY | 2024-11-20 10:04 | XMS_ITS ---
Author Name [facility] [place] Address [address] [place] [address] Care Team Providers Care Child Development Associate Teacher Name Role Phone JAVI TYLER Primary Care [...] Relationship to Policy Travis [facility] 2017 [facility] CARE NON-B ILL 2024 [facility] [id number] [phone] JAVI MURGUIA PATIENT Selected Encounter This section includes the information on record at [place] for the Encounter. Date/Time Encounter Type Encounter Description Reason Pro vider Source Jun 08, 2024 04:05 PM Outpatient Encounter ADMIN PAT ACTIVTIES (MASNONCT) [...] - MEDICINE [facility] [place] [facility] Jul 20, 2024 11:30 AM AMBULATORY - MEDICINE [facility] [place] [facility] Aug 20, 2024 11:30 AM AMBULATORY - MEDICINE [facility] [place] [facility] Sep 07, 2024 10:00 AM AMBULATORY - MEDICINE [facility] [place] [facility] Oct 09, 2024 09:30 AM AMBULATORY - MEDICINE [facility] [place] [facility] Oct 15, 2024 04:00 PM AMBULATORY - REHAB MEDICIN E [facility] [place] [facility] Oct 27, 2024 01:00 PM AMBULATORY - PSYCHIATRY [facility] [place] [facility] Oct 28, 2024 10:00 AM AMBULATORY - MEDICINE [place] [facility] [place] [facility] Nov 17, 2024 02:45 PM AMBULATORY - MEDICINE [facility] [place] [facility] Nov 20, 2024 10:30 AM AMBULATORY - NONE [place] [facility] [place] [facility] Nov 26, 2024 02:00 PM AMBULATORY - PSYCHIATRY [facility] [place] [facility] Dec 02, 2024 11:00 AM AMBULATORY - MEDICINE [facility] [place] [facility] Dec 03, 2024 02:00 PM AMBULATORY - PSYCHIATRY [facility] [place] [facility] Social History: Smoking Status (Most [...] 2023 04:34 PM VA-TOBACCO USER EVERY DAY [facility] [place] [facility] Tobacco Use History This section [...] THAN 30 YEARS [facility] [place] [facility] Aug 15, 2023 04:34 PM VA-TOBACCO USE ADVICE [facility] [place] [facility] Aug 15, 2023 04:34 PM 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 Date/Time Encounter Note(s) Provider Source Jun 08, 2024 04:05 PM ADMINISTRATIVE NOT E: LOCAL TITLE: CCC: SCHEDULING ADMINISTRATION STANDARD TITLE: ADMINISTRATIVE NOTE DATE OF NOTE: JUN 08, 2024@16:05:24 ENTRY DATE: JUN 08, 2024@16:05:24 AUTHOR: BRIELLE PRADO EXP COSIGNER: URGENCY: STATUS: COMPLETED Patient Demographics Patient Name: JAVI DAMON Patient Primary Phone: [phone] Patient Primary Address: [address] [place] [address] Patient : 1970 Patient Age: 54 Call Back Number: Caller/Recipient Relation to Patient: Self Administrative Administrative Note Comments: . NEW PCP ASSIGNMENT / APPOINTMENT / ELIGIBILITY @ [facility] . /leticia/ BRIELLE PRADO VISN [facility] Signed: 06/08/2024 16:05 Receipt Acknowledged By: 06/09/2024 10:50 /es/ MARY ELIAS MSA MANAGER SOFTWARE DEVELOPMENT, [facility] 06/16/2024 14:33 /es/ BRIE COTTRELL MANAGER SOFTWARE DEVELOPMENT [facility] 06/09/2024 16:05 /es/ XIAO SIMPSON MANAGER SOFTWARE DEVELOPMENT SAFETY DEPOSIT CLERK BRIELLE PRADO [facility]
--- OUTSIDE RECORDS SUMMARY | 2024-11-20 10:04 | XMS_ITS | Encounter Summary ---
Author Name [facility] [place] Organization [place] Address [address] [place] [id number] Care Team Providers Care Supervisor Clam Bed Name Role Phone JAVI TYLER Primary Care [...] Name Patient's Relationship to Policy Travis [facility] 2017 [facility] CARE NON-B ILL 2024 [facility] [id number] [phone] JAVI MURGUIA PATIENT Selected Encounter This section includes the information on record at [place] for the Encounter. Date/Time Encounter Type Encounter Description Reason Pro vider Source IHE Encounter Template Text not used by [place]
--- OUTSIDE RECORDS SUMMARY | 2024-11-20 10:04 | XMS_ITS ---
Author Name [place] Address [address] [place] [address] Care Team Providers Care Powerhouse Oiler Name Role Phone JAVI TYLER Primary Care [...] Travis's Name Patient's Relationship to Policy Travis [facility] 2017 [facility] NON-B ILL 2024 [facility] [id number] [phone] JAVI MURGUIA PATIENT Selected Encounter This section includes the information on record at [place] for the Encounter. Date/Time Encounter Type Encounter Description Reason Pro vider Source Jun 16, 2024 11:52 AM Outpatient Encounter ADMIN PAT ACTIVTIES (MASNONCT) IHE Encounter Template Text not used by [place] Plan of Treatment: Future Appointments (+ 6 [...] 20 appointments. The data comes from all [place] treatment facilities. Appointment Date/Time Appointment Type Appointme nt Facility Name Jul 16, 2024 09:00 AM AMBULATORY - MEDICINE [facility] [place] [facility] Jul 20, 2024 11:30 AM AMBULATORY - MEDICINE [facility] [place] [facility] Aug 20, 2024 11:30 AM AMBULATORY - MEDICINE [facility] [place] [facility] Sep 07, 2024 10:00 AM AMBULATORY - MEDICINE [facility] [place] [facility] Oct 09, 2024 09:30 AM AMBULATORY - MEDICINE [facility] [place] [facility] Oct 15, 2024 04:00 PM AMBULATORY - REHAB MEDICIN E [facility] [place] [facility] Oct 27, 2024 01:00 PM AMBULATORY - PSYCHIATRY [facility] [place] [facility] Oct 28, 2024 10:00 AM AMBULATORY - MEDICINE [facility] [place] [place] [facility] Nov 17, 2024 02:45 PM AMBULATORY - MEDICINE [facility] [place] [facility] Nov 20, 2024 10:30 AM AMBULATORY - NONE [facility] [place] [facility] Nov 26, 2024 02:00 PM AMBULATORY - PSYCHIATRY [facility] [place] [facility] Dec 02, 2024 11:00 AM AMBULATORY - MEDICINE [facility] [place] [facility] Dec 03, 2024 02:00 PM AMBULATORY - PSYCHIATRY [facility] [place] [facility] Dec 10, 2024 02:00 PM AMBULATORY - PSYCHIATRY [place] [facility] [place] [facility] Social History: Smoking Status (Most current) [...] 2023 04:34 PM [facility]-TOBACCO USER EVERY [facility] [place] [facility] Tobacco Use History This section includes a history of the smoking, or tobacco-related health factors, that were collected on or before the date of the Encounter. The data comes from the [place] facility where the Encounter took place. 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 Date/Time Encounter Note(s) Provider Source Jun 16, 2024 11:52 AM ADMINISTRATIVE NOTE: LOCAL TITLE: CCC: SCHEDULING ADMINISTRATION STANDARD TITLE: ADMINISTRATIVE NOTE DATE OF NOTE: JUN 16, 2024@11:52:11 ENTRY DATE: JUN 16, 2024@11:52:11 AUTHOR: JENNI ARSHAD EXP COSIGNER: URGENCY: STATUS: COMPLETED Patient Demographics Patient Name: JAVI DAMON Patient Primary Phone: [phone] Patient Primary Address: [address] [place] [id number] Patient : 1970 Patient Age: 54 Caller/Recipient Relation to Patient: Self Administrative Administrative Note Reason: Other Administrative Note Comments: IS REQUESTING ASSIGNMENT TO A PCP GIUSEPPE SO HE CAN GET REFERRALS TO OUTSIDE PROVIDERS- STATES HE HAS AN APPT NEXT WEEK THAT HE NEEDS COVERED BY THE [facility] PLEASE CALL HOME NUMBER /es/ JENNI ARSHAD Signed: 06/16/2024 11:52 Receipt Acknowledged By: 06/16/2024 11:58 /es/ MARY ELIAS MSA CT TECHNOLOGIST, [facility] 06/16/2024 14:32 /es/ BRIE COTTRELL CT TECHNOLOGIST JENNI [facility]
--- OUTSIDE RECORDS SUMMARY | 2024-11-20 10:04 | XMS_ITS ---
Author Name [facility] Address [address] [place] [address] Care Team Providers Care Switcher Name Role Phone JAVI TYLER Primary Care [...] Travis's Name Patient's Relationship to Policy Travis [address] CARE NON-B ILL 2024 [facility] [id number] JAVI MURGUIA PATIENT Selected Encounter This section includes the information on record at [place] for the Encounter. Date/Time Encounter Type Encounter Description Reason Provider Source Jun 25, 2024 12:45 PM SELF-HELP/PEER SVC PER 15MIN SUBSTANCE USE DISORDER IND ICD-10-CM F10.20 Alcohol dependence, uncomplicated DALE CARRIZALES E Encounter Template Text not used by [place] Assessments - Encounter Diagnoses This section includes the primary and secondary diagnoses documented for the Encounter. Date/Time Primary/Secondary Diagnosis Diagnosis Name Provider Source Jun 25, 2024 01:35 PM PRIMARY Alcohol dependence, uncomplicated DALE CARRIZALES [facility] Jun 25, 2024 01:35 PM SECONDARY Post-traumatic stress disorder, unspecified DALE CARRIZALES [facility] Jun 25, 2024 01:35 PM SECONDARY Tobacco use DALE CARRIZALES [facility] Plan of Treatment: Future Appointments (+ 6 months) and Future Tests (+/- 45 days) The Plan of Treatment section includes future care activities for the patient from all [place] treatmentfacilities. This section includes future appointments and future orders which are active, pending or scheduled. Future Appointments This section includes appointments that were scheduled to occur 6 months from the date of the Encounter, up to a maximum of 20 appointments. The data comes from all [place] treatment facilities. Appointment Date/Time Appointment Type Appointme nt Facility Name Jul 16, 2024 09:00 AM [facility] Jul 20, 2024 11:30 AM [facility] Aug 20, 2024 11:30 AM [facility] Sep 07, 2024 10:00 AM [facility] Oct 09, 2024 09:30 AM [facility] Oct 15, 2024 04:00 PM AMBULATORY - REHAB MEDICIN E [facility] Oct 27, 2024 01:00 PM [facility]BUL[facility] PSYCHIATRY [facility] Oct 28, 2024 10:00 AM [facility] Nov 17, 2024 02:45 PM [facility] Nov 20, 2024 10:30 AM AMBULATORY - NONE [facility] Nov 26, 2024 02:00 PM AMBUL[facility] - PS[facility]IATRY [facility] Dec 02, 2024 11:00 AM [facility] Dec 03, 2024 02:00 PM AMBUL[facility]ORY - PS[facility]CHIATRY [facility] Dec 10, 2024 02:00 PM [facility] Social History: Smoking Status (Most current) and Tobacco Use (All prior to encounter date) This section includes the most current, and the historical, smoking and tobacco- related health factors from the [place] facility where the Encounter took place. Current Smoking Status This section includes the most current smoking, or tobacco-related health factor, from the [place] facility where the Encounter took place. Date/Time Current Smoking Status Comment Facil ity Aug 15, 2023 04:34 PM VA-TOBACCO USER EVERY DAY [facility] Tobacco Use History This section includes a history of the smoking, or tobacco-related health factors, that were collected on or before the date of the Encounter. The data comes from the [place] facility where the Encounter took place. 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 Date/Time Encounter Note(s) Provider Source Jun 25, 2024 01:27 PM MENTAL HEALTH COUNSELING NOTE: LOCAL TITLE: PEER SUPPORT NOTE STANDARD TITLE: MENTAL HEALTH COUNSELING NOTE DATE OF NOTE: JUN 25, 2024@13:27 ENTRY DATE: JUN 25, 2024@13:28 AUTHOR: ARLEN CARRIZALES COSIGNER: URGENCY: STATUS: COMPLETED PEER SUPPORT NOTE DATE: 06/25/2024 TIME: 1245 hours. TIME IN SESSION (in minutes): 30 minutes DECK ENGINEER: Arlen Carrizales M.Ed., [facility] PURPOSE/FOCUS: Peer Support Service, 1:1 Peer Mentoring, LOCATION: [facility], [facility] ONTENT: met telephonically with 54-year-old male outpatient for peer support. Shared what services that Peer support provides. Devoted time towards reviewing the events since last meeting 7 months ago. reported being medically retired from the [employer] and awaiting primary care visit in 2 weeks to being enrolled into [facility] services. Hammond recently got engaged to long time relationship and is happy with life at the moment. interested in attending outpatient group sessions and getting active in the community. 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 Hammond identified with 2 identifiers: [X] Full Name [ ] Date of [ ] VA ID Card [X] Facial Recognition INFORMED CONSENT: informed of the risks and benefits of Telehealth video care. has the right to refuse video services. If refuses video visit, a [id number] visit will be scheduled. verbalized consent for this video visit: Yes PEER INTERVENTIONS USED: Mutuality, Motivational Interviewing, Recovery Coaching RESPONSE: reporting being satisfied with recovery progress and being able to manage chronic pain issues from service. OBSERVED STRENGTHS: is sincere in recovery. PLAN: 07/09/24 Peer recovery Group PROCEDURE: F2F Diagnoses: Alcohol dependence (SCT [id number]) - Alcohol dependence, uncomplicated (ICD-10-CM F10.20) (Primary) Tobacco abuse (SCT [id number]) - Tobacco use (ICD-10-CM Z72.0) Posttraumatic stress disorder (SCT [id number]) - Post-traumatic stress disorder, unspecified (ICD-10-CM F43.10) /leticia/ ARLEN CARRIZALES Signed: 06/25/2024 13:36 Receipt Acknowledged By: 06/25/2024 14:05 /leticia/ Jammie Villanueva PsyD PTSD/[facility] SPECIALIST ARLEN CARRIZALES [place] [facility]
--- OUTSIDE RECORDS SUMMARY | 2024-11-20 10:04 | XMS_ITS ---
Author Name [facility] [facility] [place] Address [address] [place] [address] Care Team Providers Care Color Separation Photographer Name Role Phone JAVI TYLER Primary Care [...] Relationship to Policy Travis [facility] 2017 [facility] T CARE NON-B ILL 2024 [facility] [id number] JAVI MURGUIA PATIENT Selected Encounter This section includes the information on record at [place] for the Encounter. Date/Time Encounter Type Encounter Description Reason Provider Source Aug 20, 2024 11:30 AM OFFICE O/P EST MOD 30 MIN PRIMARY CARE/MEDICINE ICD-10-CM J44.9 Chronic obstructive pulmonary disease, unspecified Lopez TYLER Encounter Template Text not used by [place] Assessments - Encounter Diagnoses This section includes the primary and secondary diagnoses documented for the Encounter. Date/Time Primary/Secondary Diagnosis Diagnosis Name Provider Source Aug 20, 2024 12:47 PM PRIMARY Chronic obstructive pulmonary disease, unspecified JAVI TYLER [place] [facility] Aug 20, 2024 12:47 PM SECONDARY Benign prostatic hyperplasia with lower urinary tract symp JAVI TYLER [place] [facility] Aug 20, 2024 12:47 PM SECONDARY Chronic pain due to trauma JAVI TYLER [place] [facility] Aug 20, 2024 12:47 PM SECONDARY Encounter for immunization TAYA MADDOX [place] [facility] Aug 20, 2024 12:47 PM SECONDARY Essential (primary) hypertension JAVI TYLER [place] [facility] Aug 20, 2024 12:47 PM SECONDARY Other obstructive and reflux uropathy JAVI TYLER [place] [facility] Aug 20, 2024 12:47 PM SECONDARY Pain in right knee JAVI TYLER [place] [facility] Aug 20, 2024 12:47 PM SECONDARY Polyp of colon JAVI TYLER [place] [facility] Aug 20, 2024 12:47 PM SECONDARY Unspecified asthma, uncomplicated JAVI TYLER [place] [facility] Plan of Treatment: Future Appointments (+ 6 months) and Future Tests (+/- 45 days) The Plan of Treatment section includes future care activities for the patient from all [place] treatmentfacilities. This section includes future appointments and future orders which are active, pending or scheduled. Future Appointments This section includes appointments that were scheduled to occur 6 months from the date of the Encounter, up to a maximum of 20 appointments. The data comes from all [place] treatment facilities. Appointment Date/Time Appointment Type Appointme nt Facility Name Sep 07, 2024 10:00 AM AMBULATORY - MEDICINE [place] [facility] Oct 09, 2024 09:30 AM AMBULATORY - MEDICINE [place] [facility] Oct 15, 2024 04:00 PM AMBULATORY - REHAB MEDICIN E [facility] Oct 27, 2024 01:00 PM AMBULATORY - PSYCHIATRY [facility] Oct 28, 2024 10:00 AM AMBULATORY - MEDICINE [facility] Nov 17, 2024 02:45 PM AMBULATORY - MEDICINE [facility] Nov 20, 2024 10:30 AM AMBULATORY - NONE [facility] Nov 26, 2024 02:00 PM AMBULATORY - PSYCHIATRY [facility] Dec 02, 2024 11:00 AM AMBULATORY - MEDICINE [facility] Dec 03, 2024 02:00 PM AMBULATORY - PSYCHIATRY [facility] Dec 10, 2024 02:00 PM AMBULATORY - PSYCHIATRY [facility] Jan 04, 2025 11:00 AM AMBULATORY - MEDICINE [facility] Jan 15, 2025 09:45 AM AMBULATORY - MEDICINE [place] [facility] Active, Pending, and Scheduled Orders This section includes a listing of several types of active, pending, and scheduled orders, including clinic medications orders, diagnostic test orders, procedure orders and consult orders; where the start date of the order is 45 days before the date of the Encounter or 45 days after the date of theEncounter. The data comes from all [place] treatment facilities. Test Date/Time Test Type Test Details Facility Name Aug 20, 2024 12:15 PM Consult Order COMMUNITY CARE-PULMONARY Cons Patient Companion's Choice [facility] Aug 20, 2024 12:15 PM Consult Order COMMUNITY CARE-COLONOSCOPY SURVEILLANCE Cons Patient Companion's Choice [facility] Aug 20, 2024 12:15 PM Consult Order COMMUNITY CARE-SOLAR PHOTOVOLTAIC SYSTEMS ENGINEER Cons Patient Companion's Choice [facility] Aug 20, 2024 12:15 PM Consult Order COMMUNITY CARE-UROLOGY Cons Patient Companion's Choice [facility] Vital Signs: All taken on the encounter date This section contains inpatient and outpatient Vital Signs collected on the date of the Encounter. Date/Time Temperature Pulse Blood Pressure Respiratory Rate SP02 Pain Height Weight Body Mass Index Source Aug 20, 2024 11:41 AM 91 120/79 20 95 222 30 [place] [facility] Immunizations: All administered on the encounter date This section contains immunizations associated to the Encounter. Immunization Series Date Issued Reaction Comments INFLUENZA, SPLIT VIRUS, TRIVALENT, PF Aug 20, 2 024 Social History: Smoking Status (Most current) and Tobacco Use (All prior to encounter date) This section includes the most current, and the historical, smoking and tobacco- related health factors from the [place] facility where the Encounter took place. Current Smoking Status This section includes the most current smoking, or tobacco-related health factor, from the [place] facility where the Encounter took place. Date/Time Current Smoking Status Comment Facil ity Aug 20, 2024 11:30 AM VA-TOBACCO USER EVERY DAY [place] [facility] Tobacco Use History This section includes a history of the smoking, or tobacco-related health factors, that were collected on or before the date of the Encounter. The data comes from the [place] facility where the Encounter took place. 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 [facility] Aug 20, 2024 11:30 AM VA-TOBACCO USE MED NO [facility] Aug 20, 2024 11:30 AM VA-TOBACCO USE WI 30 MIN OF WAKEUP [facility] Aug 20, 2024 11:30 AM VA-TOBACCO USER EVERY DAY [facility] Aug 15, 2023 04:34 PM VA-TOBACCO DOESNT USE WI 30 MIN WAKEUP [facility] Aug 15, 2023 04:34 PM VA-TOBACCO USE > 1 5 LESS THAN 30 YEARS [facility] Aug 15, 2023 04:34 PM VA-TOBACCO USE ADVICE [facility] Aug 15, 2023 04:34 PM VA-TOBACCO USE SPINNING FRAME FIXER NO [facility] Aug 15, 2023 04:34 PM VA-TOBACCO USE MED NO [facility] Aug 15, 2023 04:34 PM VA-TOBACCO USER EVERY DAY [facility] Encounter Notes: All associated encounter notes This section contains the clinical notes associated to the Encounter. Date/Time Encounter Note(s) Provider Source Aug 20, 2024 11:58 AM PREVENTIVE MEDICINE NURSING NOTE: LOCAL TITLE: CLINICAL REMINDERS/NURSING STANDARD TITLE: PREVENTIVE MEDICINE NURSING NOTE DATE OF NOTE: AUG 20, 2024@11:58 ENTRY DATE: AUG 20, 2024@11:58:57 AUTHOR: TAYA MADDOXIGNER: URGENCY: STATUS: COMPLETED Homelessness/Food Insecurity Screen: In the past 2 months, have you been living in stable housing that you own, rent, or stay in as part of a household? Yes - Living in stable housing. Are you worried or concerned that in the next 2 months you may NOT have stable housing that you own, rent, or stay in as part of a household? No - Not worried about housing near future The reports the following: Within the past 12 months, you worried whether your food would run out before you got money to buy more. Never true Within the past 12 months, the food you bought just didn't last and you didn't have money to get more. Never true Tobacco Use Screening: The patient uses tobacco every day. The patient uses tobacco within 30 minutes of waking up. The patient has been smoking or using tobacco for thirty years or more. Patient was advised to quit smoking and/or using tobacco. Discussion with patient included: - Quitting smoking or tobacco use is one of the most important things you can do to protect and improve your health and [place] has the resources to support you. - Set a quit date when you are ready to quit. - Get support from your family and friends. - Review any past quit attempts- What helped? What didn't? - On the day you plan to quit, get rid of all cigarettes and tobacco products from your home, car or work. - Using a combination of behavioral counseling or other support strategies and FDA-approved cessation medications is the most effective way to ensure success in quitting. Patient was offered Behavioral Counseling and other support strategies to assist with quitting. Discussion with patient included: - Behavioral counseling or other support strategies greatly increases your chances of successfully quitting smoking or tobacco use by helping you develop a quit plan and providing support and other strategies to make behavioral changes to help you quit. - [place] has a number of behavioral counseling options to help you with quitting, including: * Provide information about the facility smoking or tobacco use treatment options or clinics * [place]'s national quitline, 6-098-FUIS-VET, with counseling available Saturday-Saturday The patient was not interested in receiving additional information about how to use the treatment options discussed. Patient was offered FDA-approved cessation medications. Discussion with patient included: - Medications for Nicotine replacement therapy such as the patch, gum or lozenge, and other medications such as varenicline or bupropion, can play an important role in the initial weeks and months after you quit smoking or tobacco use. - Medications help with cravings and withdrawal symptoms and they greatly increase your chances of successfully quitting. The patient was not interested in a prescription for tobacco cessation medications. Influenza Immunization: Influenza, Trivalent, Preservative Free (Fluarix-Syringe) Administered: INFLUENZA, SPLIT VIRUS, TRIVALENT, PF Date Administered: Aug 20, 2024 11:30 Material Scheduler: Secpanel Lot: [id number] Exp Date: May 10, 2025 FORMERLY NAMED [facility]: [phone] Admin Route/Site: INTRAMUSCULAR/LEFT DELTOID Dosage: 0.5mL Vaccine Information Statement(s): INFLUENZA(FLU) VACC(INACTIVATED OR RECOMBINANT)VIS Jun 16, 2021 (LITHUANIAN) Order By: Policy Administered By: Taya Maddox The Influenza Vaccine Information Statement (VIS) was reviewed with the patient/caregiver which lists the benefits and risks of the vaccine and the risks of not receiving the Influenza vaccine. The patient/caregiver denied any prior severe reaction to this vaccine or its components or a severe allergic reaction, such as anaphylaxis, to any vaccine or any injectable therapy. The patient/caregiver gave verbal consent to receive the vaccine. Alcohol Use Screen (AUDIT-C): Alcohol Screen: SCREEN FOR ALCOHOL (AUDIT-C) An alcohol screening test (AUDIT-C) was negative (score=0). 1. How often did you have a drink containing alcohol in the past year? Consider a drink to be a 12 ounce can or bottle of regular beer, 8 ounces of malt liquor, a 5 ounce glass of table wine, or a 1.5 ounce shot of liquor (like scotch, gin, or vodka). Never 2. How many drinks containing alcohol did you have on a typical day when you were drinking in the past year? Response not required due to responses to other questions. 3. How often did you have six or more drinks on one occasion in the past year? Response not required due to responses to other questions. COVID-19 Immunization: Refused Moderna Monovalent COVID-19 vaccine Immunization: COVID-19 (MODERNA), MRNA, LNP-S, PF, 50 MCG/0.5 ML (AGES 12+ YEARS) Refusal Reason: PATIENT DECISION Patient refuses all immunization(s) in the COVID-19 group Date Documented: 08/20/24 12:00 /leticia/ Taya Maddox RN Primary Care Staff Nurse Signed: 08/20/2024 12:00 TAYA MADDOX [place] [facility] Aug 20, 2024 10:33 AM PHYSICIAN NOTE: LOCAL TITLE: MD NOTE STANDARD TITLE: PHYSICIAN NOTE DATE OF NOTE: AUG 20, 2024@10:33 ENTRY DATE: AUG 20, 2024@10:33:24 AUTHOR: EMI TYLER EXP COSIGNER: URGENCY: STATUS: COMPLETED HISTORY OF PRESENT ILLNESS: JAVI DAMON, is a 54 yo WHITE MALE who presents at the [place] [facility] CC. multiple problems HPI. this vet presents to PCP clinic to meet new provider and review his medical issues: 1. COPD and asthma. followed by dr Ngo in [place]. needs inhalers and trying to quit smoking 2. BPH. vet has nocturia but no rectal pain 3. chronic pain, everywhere, knees, shoulders, neck vet finds relief with joint injxns per [facility] and [facility] but never made f/u appt. 4. hx of colon polyps/ due for C scope and needs referral/ no rectal bleeding 5. HTN. on multiple meds SH. smokes 1/2 ppd/ also drinking daily Active problems - Computerized Problem List is the source for the followin. Exposure to potentially hazardous substance 2. Erectile Dysfunction (SCT 932432787) 3. Neck Pain (SCT 90528513) 4. Pain of Right Knee (SCT [id number]) 5. Shoulder Pain ([facility] [id number]) 6. Low testosterone 7. GERD - Gastro-Esophageal Reflux Disease ([facility] [id number]) 8. Headache ([facility] [id number]) 9. Allergic Rhinitis ([facility] [id number]) 10. Concussion with loss of consciousness 11. Asthma ([facility] [id number]) 12. SAS - Sleep apnoea syndrome 13. Chronic pain 14. Alcohol dependence 15. Tobacco abuse 16. 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 May COMBAT SERVICE INDICATED: No SERVICE CONNECTED % - NONE FOUND VITAL SIGNS: Temperature 98.4 F [36.9 C] (11/13/2023 11:06) Blood Pressure 132/88 (11/13/2023 11:06) Pulse 94 (11/13/2023 11:06) Respiration 16 (11/13/2023 11:06) Pain 6 (11/13/2023 11:06) BMI BMI: 26.6 Weight 196 lb [88.90 kg] (11/13/2023 11:06) Pulse Oximetry 98% (11/13/2023 11:06) Review of Systems: CONSTITUTIONAL: No fever, no loss of appetite ENT: No sore throat, no cough CARDIOVASCULAR: No chest pain, no palpitations RESPIRATORY: No productive cough, no hemoptysis GASTROINTESTINAL: No abd pain, no N/V/D, no change in stool EXAMINATION General: Well-appearing gentleman in no obvious distress/ uses cane to help ambulation Mental Status: Alert and oriented x 3 Head: Normocephalic. Eyes: Anicteric sclerae. Conjunctivae noninjected. Lungs: bilat exp wheeze throughout lung bagley CV: RRR. No murmur DATA REVIEW >> MEDICATIONS Reviewed Today (VA & Non VA) ALLERGIES: Patient has answered NKA Active Outpatient Medications (including Supplies): Issue Date Status Last Fill Active Outpatient Medications Refills Expiration 1) BUPRENORPHINE HCL 2MG SUBLINGUAL TAB ACTIVE Issu:02-18-24 Qty: 90 for 30 days Sig: DISSOLVE ONE Refills: 1 Last:04-01-24 TABLET UNDER THE TONGUE EVERY 8 HOURS Expr:08-20-24 FOR CHRONIC PAIN 2) BUSPIRONE HCL 10MG TAB Qty: 270 for 90 ACTIVE Issu:05-25-24 days Sig: TAKE ONE TABLET BY MOUTH Refills: 0 Last:05-26-24 THREE TIMES A DAY FOR ANXIETY Expr:08-23-24 3) CETIRIZINE HCL 10MG TAB Qty: 90 for 90 ACTIVE Issu:11-13-23 days Sig: TAKE ONE TABLET BY MOUTH Refills: 2 Last:02-01-24 ONCE DAILY FOR ALLERGIES Expr:11-13-24 4) CHLORTHALIDONE 25MG TAB Qty: 90 for 90 ACTIVE Issu:06-29-24 days Sig: TAKE ONE TABLET BY MOUTH Refills: 1 Last:06-30-24 ONCE DAILY TO REMOVE FLUID/CONTROL Expr:06-30-25 BLOOD PRESSURE 5) FLUTICAS 250/SALMETEROL 50 INHL DISK 60 ACTIVE Issu:08-07-24 Qty: 3 for 90 days Sig: INHALE 1 PUFF Refills: 3 Last:08-07-24 BY MOUTH TWICE DAILY - RINSE MOUTH Expr:08-08-25 AFTER USE 6) OMEPRAZOLE 20MG EC CAP Qty: 180 for 90 ACTIVE Issu:06-29-24 days Sig: TAKE TWO CAPSULES BY MOUTH Refills: 3 Last:06-30-24 EVERY MORNING 30 MINUTES BEFORE Expr:06-30-25 BREAKFAST FOR GASTROESOPHAGEAL REFLUX DISEASE 7) PAROXETINE HCL 40MG TAB Qty: 90 for 90 ACTIVE Issu:04-10-24 days Sig: TAKE ONE TABLET BY MOUTH Refills: 1 Last:04-10-24 ONCE DAILY Expr:04-11-25 8) POTASSIUM CHLORIDE 10MEQ SA TAB Qty: 90 ACTIVE Issu:06-29-24 for 90 days Sig: TAKE ONE TABLET BY Refills: 1 Last:06-30-24 MOUTH ONCE DAILY FOR LOW POTASSIUM Expr:06-30-25 9) QUETIAPINE FUMARATE 50MG TAB Qty: 60 ACTIVE Issu:01-17-24 for 60 days Sig: TAKE ONE TABLET BY Refills: 0 Last:04-10-24 MOUTH AT BEDTIME NEEDED FOR SLEEP Expr:01-17-25 10) SILDENAFIL CITRATE 100MG TAB Qty: 6 for ACTIVE Issu:11-13-23 30 days Sig: TAKE ONE TABLET BY MOUTH Refills: 9 Last:04-10-24 ONCE DAILY TAKE 1 HOUR PRIOR TO [...] TAB Sig: BY ACTIVE MOUTH 7) Non-VA KGGEJ-4-MGOU ETHYL ESTERS 1000MG ACTIVE CAP SiMG BY [...] INHL Si PUFFS BY MOUTH ONCE DAILY 22 Total Medications >> LABS REVIEWED TODAY: CHEM 7 TREND LAB CUMULATIVE SELECTED Collection DT Spec GLUCOSE BUN CREATIN Sodium K+/Pot CL CO2 02/18/2024 15:51 SERUM 103 H 10 0.79 138 3.1 L 100 27 11/13/2023 12:21 SERUM 81 8 0.85 139 3.9 101 27 09/12/2023 13:08 SERUM 121 H 5 L 0.91 138 3.0 L 96 L 28 LAB CUMULATIVE SELECTED 2 No selection items chosen for this component. CHEM 7 Results Collection DT Spec Sodium K+/Pot CL CO2 GLUCOSE BUN 02/18/2024 15:51 SERUM 138 3.1 L 100 27 103 H 10 11/13/2023 12:21 SERUM 139 3.9 101 27 81 8 09/12/2023 13:08 SERUM 138 3.0 L 96 L 28 121 H 5 L CBC TREND Collection DT Spec WBC RBC HGB HCT MCV MCH PLT 02/18/2024 15:51 BLOOD 8.71 4.33 13.1 38.8 L 89.6 30.3 216 11/13/2023 12:21 BLOOD 7.73 4.05 L 12.8 39.1 L 96.5 31.6 439 H 09/12/2023 13:08 BLOOD 6.25 4.02 L 13.4 37.7 L 93.8 33.3 H 213 HEMOGLOBIN A1C TREND Collection DT Spec HGBA1c 09/12/2023 13:08 BLOOD 5.5 LIPID PANEL TREND Collection DT Spec CHOL HDL CHO/HDL LDL-c TRIG 09/12/2023 13:08 SERUM 149 41 3.6 76 161 H UREA NITROGEN 02/18/24 15:51 10 11/13/23 12:21 8 09/12/23 13:08 5 L CREATININE-EGFR 02/18/24 15:51 0.79 11/13/23 12:21 0.85 09/12/23 13:08 0.91 LIVER PANEL TREND Collection DT Spec AST ALT T BILI ALK SHANON T. PROT ALBUMIN 02/18/2024 15:51 SERUM 28 22 0.4 69 7.0 3.6 11/13/2023 12:22 SERUM 3.1 L 11/13/2023 12:21 SERUM 37 H 26 0.4 85 6.7 3.1 L 09/12/2023 13:08 SERUM 130 H 59 H 0.8 114 6.9 3.5 PSA TREND Collection DT Spec PSA SR- 11/13/2023 12:21 SERUM 0.55 Collection DT Spec TSH 11/13/2023 12:21 SERUM 2.83 ANEMIA PANEL TREND Collection DT Spec B12 SR- Folate HCT Ferrit IRON TIBC 02/18/2024 15:51 BLOOD 38.8 L 11/13/2023 12:21 SERUM 7.37 11/13/2023 12:21 SERUM 727 427 H 54 249 11/13/2023 12:21 BLOOD 39.1 L 09/12/2023 13:08 BLOOD 37.7 L PT INR TREND Collection DT Spec INR PT 11/13/2023 12:22 PLASM 1.1 12.8 >> HEALTH MAINTENANCE PREVENTIVE MEDICINE GOALS Info Only: [facility] Connect Capable DUE NOW BMI>30/>24.99 High Risk DUE NOW Homelessness/Food Insecurity Screen Aug 15 Atyp Antipsych Metabol Syndrome Sep 12 Avg Risk Colorectal Cancer Screen DUE NOW Screen for Embedded Fragments DUE NOW Hepatitis B Immunization Apr 21 HIV Screening DUE NOW Mental Health Treatment Plan DUE NOW Pneumococcal Conjugate Vaccine (PCV15/PCDUE NOW Primary Care Provider Search DUE NOW TBI Screening DUE NOW Tobacco Use Screening Aug 15 Influenza Immunization DUE NOW Medication Reconciliation DUE NOW Alcohol Use Screen (AUDIT-C) Aug 15 COVID-19 Immunization DUE NOW Sexual Orientation Jan 11 RHS Screen DUE NOW (Optional) Whole Health Documentation DUE NOW ASSESSMENT/PLAN: 1. COPD w/ asthma 2. BPH 3. chronic pain 4. bilat knee pain/DJD 5. colon polyp 6. HTN Plan 1. vet needs both spiriva and wixela 2. referral to [facility] sean [place]/dr Ngo for Dec f/u asthma 3. trial of prednisone burst for 5 days 4. tamsulosin 0.4 mg qhs and refer to urology at [place] 5. refer back to [place] 6. refer to [facility] for injxns 7. vet will plan to have C scope at [facility] 8. refill BP meds/ see med list 9. f[facility] w/ [facility] LAB ORDERS FOR NEXT APPT. spent in patient care and education No barriers; Patient understands and agrees to current treatment plan. If pt has any questions, concerns, or changes in current health status he/she will call or come in to the [facility]. Medication Reconciliation: Outpatient: Has the patient been taking medications as documented in the EMLR? YES: The patient has been taking medications as documented in the EMLR. Essential Medication List for Review used to complete this medication reconciliation. INCLUDED IN THIS LIST: Alphabetical list of active outpatient prescriptions dispensed from this [place] (local) and dispensed from another [place] or DoD facility (remote) as well as inpatient orders (local, pending and active), local clinic medications, locally documented non-VA medications, and local prescriptions that have or been discontinued in the past 90 days. - All changes in medications, including all non-VA/Herbal/OTC medications were entered into CPRS. - If there were any medications the patient should no longer take, they were discontinued. - The patient/caregiver was instructed to update this list, discard old lists, and take this list to the next appointment, whether with a VA or non-VA provider. /leticia/ JAVI TYLER MD PHYSICIAN Signed: 08/20/2024 12:47 HAYDE TYLER [place] [facility]
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
--- OUTSIDE RECORDS SUMMARY | 2024-11-20 10:04 | XMS_ITS ---
Author Name [facility] [place] [facility] [place] Address [address] [place] [address] Care Team Providers Care Rehabilitation Nurse Name Role Phone JAVI TYLER Primary Care [...] Travis's Name Patient's Relationship to Policy Travis [facility] 2017 [facility] DIRE T CARE NON-B ILL 2024 [facility] [id number] JAVI MURGUIA PATIENT Selected Encounter This section includes the information on record at [place] for the Encounter. Date/Time Encounter Type Encounter Description Reason Provider Source Jun 25, 2024 01:35 PM HC PRO PHONE CALL 5-10 MIN TELEPHONE ICD-10-CM Z71.89 Other specified counseling OMAR UNDERWOOD Encounter Template Text not used by [place] Assessments - Encounter Diagnoses This section includes the primary and secondary diagnoses documented for the Encounter. Date/Time Primary/Secondary Diagnosis Diagnosis Name Provider Source Jun 25, 2024 01:35 PM PRIMARY Other specified counseling OMAR UNDERWOOD [place] [facility] Plan of Treatment: Future Appointments (+ 6 months) and Future Tests (+/- 45 days) The Plan of Treatment section includes future care activities for the patient from all [place] [facility]. This section includes future appointments and future orders which are active, pending or scheduled. Future Appointments This section includes appointments that were scheduled to occur 6 months from the date of the Encounter, up to a maximum of 20 appointments. The data comes from all [place] treatment facilities. Appointment Date/Time Appointment Type Appointme nt Facility Name Jul 16, 2024 09:00 AM AM[place]ULATORY [place]ICINE [place] [facility] Jul 20, 2024 11:30 AM AM[place]ULATORY [place]IC[place] [facility] Aug 20, 2024 11:30 AM AM[place]ULATORY [place]ICINE [place] [facility] Sep 07, 2024 10:00 AM AMBULATORY [place] MEDICINE [place] [facility] Oct 09, 2024 09:30 AM AMBULATORY [place]ICINE [place] [facility] Oct 15, 2024 04:00 PM AMBULATORY - REHAB MEDICIN E [place] [facility] [place] [facility] Oct 27, 2024 01:00 PM AMBULATORY - PSYCHIATRY [place] [facility] [facility] Oct 28, 2024 10:00 AM AMBULATORY - MEDICINE [place] [facility] Nov 17, 2024 02:45 PM AMBULATORY - MEDICINE [place] [facility] Nov 20, 2024 10:30 AM AMBULATORY - NONE [place] [facility] [facility] Nov 26, 2024 02:00 PM AMBULATORY - PSYCHIATRY [place] [facility] [facility] Dec 02, 2024 11:00 AM AMBULATORY - MEDICINE [place] [facility] Dec 03, 2024 02:00 PM AMBULATORY - PSYCHIATRY [place] [facility] [facility] Dec 10, 2024 02:00 PM AMBULATORY - PSYCHIATRY [place] [facility] [facility] Social History: Smoking Status (Most current) and Tobacco Use (All prior to encounter date) This section includes the most current, and the historical, smoking and tobacco- related health factors from the [place] facility where the Encounter took place. Current Smoking Status This section includes the most current smoking, or tobacco-related health factor, from the [place] facility where the Encounter took place. Date/Time Current Smoking Status Comment Facil ity Aug 15, 2023 04:34 PM VA-TOBACCO USER EVERY DAY [facility] Tobacco Use History This section includes a history of the smoking, or tobacco-related health factors, that were collected on or before the date of the Encounter. The data comes from the [place] facility where the Encounter took place. 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 Date/Time Encounter Note(s) Provider Source Jun 25, 2024 01:35 PM SUICIDE PREVENTION NOTE: LOCAL TITLE: [facility] CRISIS LINE NOTE STANDARD TITLE: SUICIDE PREVENTION NOTE DATE OF NOTE: JUN 25, 2024@13:35:38 ENTRY DATE: JUN 25, 2024@13:35:38 AUTHOR: OMAR UNDERWOOD COSIGNER: URGENCY: STATUS: COMPLETED Part I: Hotline Call Report generated by the [place] National Suicide Prevention Hotline, [place], [place]. Hotline responder: Kelley Holliday Hotline Call Start Date/Time: 06/24/2024 5:41 PM ([place]-05:00) Eastern Time ([place] & [place]) Hotline Call End Date/Time: 06/24/2024 6:12 PM ([place]-05:00) Eastern Time ([place] & [place]) Reasons For Calling: Mental health/illness Complaint about VA Chronic Pain Medical Issues Medication Refill/Issue Service Era: 06/1990 - Service Branch: : [employer] Clinical Impression and Level of Suicide Risk: Low Suicide Ideation or Behavior Present: Plan or Intent for Suicide: No Answer Past Suicide Attempts: No Access to Means To Hurt: Access to Firearms: Outcome of Call/Action Taken: Caller stayed on line until the call ended normally Call Synopsis: NAME: JAVI DAMON ROUTINE REFERRAL: [place]. [id number]([place],; [phone] : [id number] #: [id number] ADDRESS: [address] [place] [id number] PHONE: [phone] EHR ACCESSED DUE TO REFERRAL; NO FLAGS NOTED REASON FOR REFERRAL: is requesting a primary care physician; mental health support; medication assistance (out of blood pressure medication) as soon as possible NO SDV TERM PRESENTING PROBLEM: [place] is calling requesting assistance with connecting to VA resources. The said he recently retired from the [employer] and is in need of primary care; mental health and medication assistance. He is frustrated as he was told that he had to 'start all over' with a primary care physician. He is seeking assistance in connecting to these resources/services. RISK ASSESSMENT (LOW): denied current or past suicidal ideation or behaviors SERVICES/RESOURCES OFFERED: Responder offered a warm transfer to the VA; declined. Responder also offered Suicide Prevention Referral to assist the [place] with connecting to the above mentioned services. [place] accepted the referral. Responder encouraged the to call the crisis line in the future. - Part III: Local Suicide Principal Android Developer Follow-up: Brief Outcome of follow up: denied any current needs, A provided support Follow up narrative: CONTACT (erase all that do not apply and include ALL that DO apply; AT LEAST 1 must remain) (1) Initial phone attempt made within 24 business hours (mandatory) (2) [place] reached. ACTION TAKEN/PLAN (erase all that do not apply and include ALL that DO apply; AT LEAST 1 must remain) (6) Suicide Principal Android Developer or Suicide Prevention Burrer Marker Axle connected with . Risk assessed and needs addressed as indicated. (8) Reviewed with and/or caller how to access emergency mental health resources [facility] RESPONSE (erase all that do not apply and include ALL that DO apply; AT LEAST 1 must remain) (12) is aware and in agreement with plan COMMENTS on any additional information up to this point (optional): SPC reached by phone this afternoon and he said he was doing much better. [place] reported that he had called the crisis line because he had been trying to get ahold of someone at the VA and I was getting nowhere because everything is automated. He denied SI, plan, or intent, stating that he had just wanted to make sure he got a hold of someone. [place] reports that someone from the [facility] reached out to him today and he was able to schedule a primary care appointment on 07/16. He reports that he feels good about this outcome and denies any other needs at this time. He reports he was also able to get back in touch with his old therapist, so he does not need assistance with MH. SPC encouraged to continue to reach out to the [facility] as needed for additional support or assistance. [place] agreed and call ended normally. Any further follow-up will be documented in CPRS. PLEASE CLOSE CONSULT. /leticia/ SEVEN BOX SUICIDE PULMONOLOGIST/INTENSIVIST Signed: 06/25/2024 13:36 OMAR UNDER[place]OD [place] [facility]
--- OUTSIDE RECORDS SUMMARY | 2024-11-20 10:04 | XMS_ITS | Encounter Summary ---
Author Name [facility] [place] [facility] [place] Address [address] [place] [address] Care Team Providers Care Ob Scrub Tech Name Role Phone JAVI TYLER Primary Care [...] Travis's Name Patient's Relationship to Policy Travis [facility] 2017 [facility] NON-B ILL 2024 [facility] [id number] JAVI MURGUIA PATIENT Selected Encounter This section includes the information on record at [place] for the Encounter. Date/Time Encounter Type Encounter Description Reason Pro vider Source Jul 16, 2024 09:00 AM Outpatient Encounter PRIMARY CARE/MEDICINE IHE Encounter Template Text not used by [place] Plan of Treatment: Future Appointments (+ 6 [...] Appointment Type Appointme nt Facility Name Jul 20, 2024 11:30 AM AMBULATORY - MEDICINE [place] [facility] [facility] Aug 20, 2024 11:30 AM AMBULATORY - MEDICINE [place] [facility] [place] [facility] Sep 07, 2024 10:00 AM AMBULATORY - MEDICINE [place] [facility] [place] [facility] Oct 09, 2024 09:30 AM AMBULATORY - MEDICINE [place] [facility] [place] [facility] Oct 15, 2024 04:00 PM AMBULATORY - REHAB MEDICIN E [facility] [place] [facility] Oct 27, 2024 01:00 PM AMBULATORY - PSYCHIATRY [facility] [place] [facility] Oct 28, 2024 10:00 AM AMBULATORY - MEDICINE [place] [facility] [place] [facility] Nov 17, 2024 02:45 PM AMBULATORY - MEDICINE [place] [facility] [place] [facility] Nov 20, 2024 10:30 AM AMBULATORY - NONE [place] [facility] [place] [facility] Nov 26, 2024 02:00 PM AMBULATORY - PSYCHIATRY [place] [facility] [facility] Dec 02, 2024 11:00 AM AMBULATORY - MEDICINE [place] [facility] [place] [facility] Dec 03, 2024 02:00 PM AMBULATORY - PSYCHIATRY [place] [facility] [place] [facility] Dec 10, 2024 02:00 PM AMBULATORY - PSYCHIATRY [facility] [place] [facility] Jan 04, 2025 11:00 AM AMBULATORY - MEDICINE [place] [facility] Active, Pending, and Scheduled Orders This section includes a listing of several types of active, pending, and scheduled orders, including clinic medications orders, diagnostic test orders, procedure orders and consult orders; where the start date of the order is 45 days before the date of the Encounter or 45 days after the date of theEncounter. The data comes from all [place] treatment [facility]. Test Date/Time Test Type Test Details Facility Name Aug 20, 2024 12:15 PM Consult Order COMMUNITY CARE-PULMONARY Cons Area Cleaner's Choice [place] [facility] [place] [facility] Aug 20, 2024 12:15 PM Consult Order COMMUNITY CARE-COLONOSCOPY SURVEILLANCE Cons Area Cleaner's Choice [place] [facility] [place] [facility] Aug 20, 2024 12:15 PM Consult Order COMMUNITY CARE-CUSTOMER SERVICE MANAGER Cons Area Cleaner's Choice [place] [facility] [place] [facility] Aug 20, 2024 12:15 PM Consult Order COMMUNITY CARE-UROLOGY Cons Area Cleaner's Choice [place] [facility] [place] [facility] Social History: Smoking Status (Most current) [...] 2023 04:34 PM [facility] Tobacco Use History This section includes [...] THAN 30 YEARS [place] [facility] [place] [facility] Aug 15, 2023 04:34 PM VA-TOBACCO USE ADVICE [place] [facility] [place] [facility] Aug 15, 2023 04:34 PM VA-TOBACCO USE DISPATCH LEAD NO [place] [facility] [place] [facility] Aug 15, 2023 04:34 PM VA-TOBACCO USE MED NO [place] [facility] [place] [facility] Aug 15, 2023 04:34 PM VA-TOBACCO USER EVERY DAY [place] [facility] Encounter Notes: All associated encounter notes This section contains the clinical notes associated to the Encounter. Date/Time Encounter Note(s) Provider Source Jul 16, 2024 09:59 AM PRIMARY CARE TELEP ALE ENCOUNTER NOTE: LOCAL TITLE: TELEPHONE NOTE/PRIMARY CARE STANDARD TITLE: PRIMARY CARE TELEPHONE ENCOUNTER NOTE DATE OF NOTE: JUL 16, 2024@09:59 ENTRY DATE: JUL 16, 2024@09:59:08 AUTHOR: ITZEL PICHARDO COSIGNER: URGENCY: STATUS: COMPLETED MSA lm to call to r/s 9/ PCP no show appt. Does want to transfer from [facility]. 8/5 CPRS note states that was frustrated that he had to start all over with a new PCP. /leticia/ ITZEL PICHARDO Advanced Manager Learning Signed: 07/16/2024 10:01 ITZEL PICHARDO [place] [facility] Jul 16, 2024 09:58 AM CLERICAL NOTE: LOCAL TITLE: APPOINTMENT NO SHOW STANDARD TITLE: CLERICAL NOTE DATE OF NOTE: JUL 16, 2024@09:58 ENTRY DATE: JUL 16, 2024@09:58:30 AUTHOR: ITZEL PICHARDO EXP COSIGNER: URGENCY: STATUS: COMPLETED Patient Name: JAVI DAMON Patient SSN: [id number] Date and time of Appointment No show : 07/16/24 09:00 PATIENT PHONE - PHONE NUMBER [CELLULAR] - Patient's medical record was reviewed. Follow-up actions were determined and initiated: Please check/complete as applies: [X]Telephoned Directly [ ]Re-scheduled for next available appt [X]Sent a N0-show letter ( must call for appointment) [ ]Other (Emergent/Overbook, etc.): Additional Comments: Future Clinic Visits No data available /leticia/ ITZEL PICHARDO Advanced Manager Learning Signed: 07/16/2024 09:59 ITZEL PICHARDO [place] [facility]
--- OUTSIDE RECORDS SUMMARY | 2024-11-20 10:05 | XMS_ITS ---
Author Name [facility] [place] Organization [facility] [place] [facility] [place] Address [address] [place] [address] Care Team Providers Care Deliverer Merchandise Name Role Phone JAVI TYLER Primary Care [...] Name Patient's Relationship to Policy Travis [facility] 2017 [facility] CARE NON-B ILL 2024 [facility] [id number] JAVI MURGUIA PATIENT Selected Encounter This section includes the information on record at [place] for the Encounter. Date/Time Encounter Type Encounter Description Reason Pro vider Source Oct 09, 2024 10:00 AM Outpatient Encounter SUBSTANCE USE DISORDER IND IHE [...] 20 appointments. The data comes from all [facility]. Appointment Date/Time Appointment Type Appointme nt Facility Name Oct 15, 2024 04:00 PM AMBULATORY - REHAB MEDICIN E [facility] [place] [facility] Oct 27, 2024 01:00 PM AMBULATORY - PSYCHIATRY [facility] [place] [facility] Oct 28, 2024 10:00 AM AMBULATORY - MEDICINE [facility] [place] [facility] Nov 17, 2024 02:45 PM AMBULATORY - MEDICINE [facility] [place] [facility] Nov 20, 2024 10:30 AM AMBULATORY - NONE [facility] [place] [facility] Nov 26, 2024 02:00 PM AMBULATORY - PSYCHIATRY [facility] [place] [facility] Dec 02, 2024 11:00 AM AMBULATORY - MEDICINE [facility] [place] [facility] Dec 03, 2024 02:00 PM AMBULATORY - PSYCHIATRY [facility] [place] [facility] Dec 10, 2024 02:00 PM AMBULATORY - PSYCHIATRY [facility] [place] [facility] Jan 04, 2025 11:00 AM AMBULATORY - MEDICINE [facility] [place] [facility] Jan 15, 2025 09:45 AM AMBULATORY - MEDICINE [place] [facility] [place] [facility] Active, Pending, and Scheduled Orders This section includes a listing of several types of active, pending, and scheduled orders, including clinic medications orders, diagnostic test orders, procedure orders and consult orders; where the start date of the order is 45 days before the date of the Encounter or 45 days after the date of theEncounter. The data comes from all [facility]. Test Date/Time Test Type Test Details Facility Name Oct 27, 2024 03:39 PM Consult Order [facility] OUTPT Cons Mold Closer's Choice [facility] [place] [facility] Lab Results: +/- 30 days of [...] Result - Unit Interpretation Reference Range Comment Oct 09, 2024 11:03 AM [facility] METHADONE SCREEN Specimen Type: URINE Comment: YAMEL test are qualitative, any L or H flags only indicate a VA alert was sent. Ordering Provider: PHILIPPE WALLACE Report Released Date/Time: Oct 09, 2024 10:18 AM Reporting Lab: [address] [address] Performing Lab: [facility] [address] [facility] [address] METHADONE SCREEN None detected(Nega tive) L Negative Oct 09, 2024 11:03 AM [facility] ALCOHOL, ETHYL URINE PANEL Specimen Type: URINE [...] 11 may have been adulterated. Ordering Provider: PHILIPPE WALLACE Report Released Date/Time: Oct 09, 2024 10:18 AM Reporting Lab: [address] [address] Performing Lab: [address] [address] ALCOHOL, ETHYL URINE NONE-DETECTED mg/dL NONE-DETEC PRANAY, cutoff = 10 mg/dL PH, YAMEL 5.7 [pH] 4-10 CREATININE, YAMEL 153.27 mg/dL >20 SP.GRAVITY, YAMEL 1.018 1.00 3-1.02 0 Oct 09, 2024 11:03 AM [facility] AMPHETAMINES SCREEN PANEL Specimen Type: URINE Comment: [...] 11 may have been adulterated. Ordering Provider: PHILIPPE WALLACE Report Released Date/Time: Oct 09, 2024 10:18 AM Reporting Lab: [address] [address] Performing Lab: [address] [address] AMPHETAMINES SCREEN NONE-DETECTED None-Detec pranay, Cutoff = 1000 ng/mL PH, YAMEL 5.7 [pH] 4-10 CREATININE, YAMEL 153.27 mg/dL >20 SP.GRAVITY, YAMEL 1.018 1.00 3-1.02 0 Oct 09, 2024 11:03 AM [facility] FENTANYL SCREEN PANEL Specimen Type: URINE Comment: [...] Ordering Provider: PHILIPPE WALLACE Report Released Date/Time: Oct 09, 2024 10:18 AM Reporting Lab: [address] [address] Performing Lab: [address] [address] FENTANYL SCREEN NONE-DETECTE D ng/mL Negative: Cutoff = 1.00 ng/mL PH, YAMEL 5.7 [pH] 4-10 CREATININE, YAMEL 155.37 mg/dL >20 SP.GRAVITY, YAMEL 1.018 1.00 3-1.02 0 Oct 09, 2024 11:03 AM [facility] BENZODIAZEPINES SCREEN PANEL Specimen Type: URINE Comment: [...] 11 may have been adulterated. Ordering Provider: PHILIPPE WALLACE Report Released Date/Time: Oct 09, 2024 10:18 AM Reporting Lab: [address] [address] Performing Lab: [address] [address] BENZODIAZEPINES SCREEN POSITIVE HH None-Detec pranay, Cutoff = 200 ng/mL PH, YAMEL 5.7 [pH] 4-10 CREATININE, YAMEL 153.27 mg/dL >20 SP.GRAVITY, YAMEL 1.018 1.00 3-1.02 0 Oct 09, 2024 11:03 AM [facility] BUPRENORPHINE SCREEN PANEL Specimen Type: URINE Comment: [...] 11 may have been adulterated. Ordering Provider: PHILIPPE WALLACE Report Released Date/Time: Oct 09, 2024 10:18 AM Reporting Lab: [address] [address] Performing Lab: [address] [address] BUPRENORPHINE (URINE) NONE-DETECTED None Detected, Cutoff = 10.0 ng/mL PH, YAMEL 5.7 [pH] 4-10 CREATININE, YAMEL 153.27 mg/dL >20 SP.GRAVITY, YAMEL 1.018 1.00 3-1.02 0 Oct 09, 2024 11:03 AM [facility] CANNABINOIDS SCREEN PANEL Specimen Type: URINE Comment: [...] 11 may have been adulterated. Ordering Provider: PHILIPPE WALLACE Report Released Date/Time: Oct 09, 2024 10:18 AM Reporting Lab: [address] [address] Performing Lab: [address] [address] CANNABINOIDS SCREEN POSITIVE HH None-Detec pranay,Cutoff = 50 ng/mL PH, YAMEL 5.7 [pH] 4-10 CREATININE, YAMEL 153.27 mg/dL >20 SP.GRAVITY, YAMEL 1.018 1.00 3-1.02 0 Oct 09, 2024 11:03 AM [facility] COCAINE SCREEN PANEL Specimen Type: URINE [...] 11 may have been adulterated. Ordering Provider: PHILIPPE WALLACE Report Released Date/Time: Oct 09, 2024 10:18 AM Reporting Lab: [address] [address] Performing Lab: [address] [address] COCAINE SCREEN NONE-DETECTED N one-Detec pranay,Cutoff = 300 ng/mL PH, YAMEL 5.7 [pH] 4-10 CREATININE, YAMEL 153.27 mg/dL >20 SP.GRAVITY, YAMEL 1.018 1.00 3-1.02 0 Oct 09, 2024 11:03 AM [facility] OPIATES SCREEN PANEL Specimen Type: URINE Comment: [...] 11 may have been adulterated. Ordering Provider: PHILIPPE WALLACE Report Released Date/Time: Oct 09, 2024 10:18 AM Reporting Lab: [address] [address] Performing Lab: [address] [address] OPIATES SCREEN NONE-DETECTED N one-Detec pranay, Cutoff = 300 ng/mL PH, YAMEL 5.7 [pH] 4-10 CREATININE, YAMEL 153.27 mg/dL >20 SP.GRAVITY, YAMEL 1.018 1.00 3-1.02 0 Oct 09, 2024 11:03 AM [facility] OXYCODONE SCREEN PANEL Specimen Type: URINE Comment: [...] 11 may have been adulterated. Ordering Provider: PHILIPPE WALLACE Report Released Date/Time: Oct 09, 2024 10:18 AM Reporting Lab: [address] [address] Performing Lab: [address] [address] OXYCODONE SCREEN POSITIVE HH Non e-Detec pranay, Cutoff = 100 ng/mL PH, YAMEL 5.7 [pH] 4-10 CREATININE, YAMEL 153.27 mg/dL >20 SP.GRAVITY, YAMEL 1.018 1.00 3-1.02 0 Social History: Smoking Status [...] Current Smoking Status Comment Katty ity Aug 20, 2024 11:30 AM VA-TOBACCO USER EVERY DAY [facility] Tobacco Use History This section includes a history of the smoking, or tobacco-related health factors, that were collected on or before the date of the Encounter. The data comes from the [place] facility where the Encounter took place. Date/Time Smoking Status/Tobacco Use Comment F acility Aug 20, 2024 11:30 AM VA-TOBACCO USE ADVICE [facility] [place] [facility] Aug 20, 2024 11:30 AM VA-TOBACCO USE PORT ENGINEER NO [facility] [place] [facility] Aug 20, 2024 11:30 AM VA-TOBACCO USE MED NO [facility] [place] [facility] Aug 20, 2024 11:30 AM VA-TOBACCO USE WI 30 MIN OF WAKEUP [facility] [place] [facility] Aug 20, 2024 11:30 AM VA-TOBACCO USER EVERY DAY [facility] [place] [facility] Aug 15, 2023 04:34 PM VA-TOBACCO DOESNT USE WI 30 MIN WAKEUP [facility] [place] [facility] Aug 15, 2023 04:34 PM VA-TOBACCO USE > 1 5 LESS THAN 30 YEARS [facility] [place] [facility] Aug 15, 2023 04:34 PM VA-TOBACCO USE ADVICE [facility] [place] [facility] Aug 15, 2023 04:34 PM VA-TOBACCO USE PORT ENGINEER NO [facility] [place] [facility] Aug 15, 2023 04:34 PM VA-TOBACCO USE MED NO [facility] [place] [facility] Aug 15, 2023 04:34 PM VA-TOBACCO USER EVERY DAY [place] [facility] [place] [facility] Encounter Notes: All associated encounter notes This section contains the clinical notes associated to the Encounter. Date/Time Encounter Note(s) Provider Source Oct 09, 2024 11:22 AM ADMINISTRATIVE NOTE: LOCAL TITLE: ADMINISTRATIVE NOTE STANDARD TITLE: ADMINISTRATIVE NOTE DATE OF NOTE: OCT 09, 2024@11:22 ENTRY DATE: OCT 09, 2024@11:22:18 AUTHOR: RADHA HERNANDEZ EXP COSIGNER: URGENCY: STATUS: COMPLETED AMSA spoke with [place] in person who left a message for Expert Medical Writer to call when he had the chance. Dayton's number is [phone]. /es/ RADHA HERNANDEZ ADVANCED MANAGER FUND Signed: 10/09/2024 11:23 Receipt Acknowledged By: 10/12/2024 08:12 /leticia/ RADHA AVALOS [facility]
--- OUTSIDE RECORDS SUMMARY | 2024-11-20 10:05 | XMS_ITS ---
Author Name [facility] [place] Organization [facility] [place] [facility] [place] Address [address] [place] [address] Care Team Providers Care Business Manager Name Role Phone JAVI TYLER Primary Care [...] Travis's Name Patient's Relationship to Policy Travis [facility] 2017 [facility] CARE NON-B ILL 2024 [facility] [id number] JAVI MURGUIA PATIENT Selected Encounter This section includes the information on record at [place] for the Encounter. Date/Time Encounter Type Encounter Description Reason Pro vider Source Sep 17, 2024 10:00 AM Outpatient Encounter SUBSTANCE USE [...] Appointment Type Appointme nt Facility Name Oct 09, 2024 09:30 AM AMBULATORY [facility] MEDICINE [facility] [place] [facility] Oct 15, 2024 04:00 PM AMBULATORY - REHAB MEDICIN E [facility] [place] [facility] Oct 27, 2024 01:00 PM AMBULATORY - PSYCHIATRY [facility] [place] [facility] Oct 28, 2024 10:00 AM AMBULATORY - MEDICINE [facility] [place] [facility] Nov 17, 2024 02:45 PM AMBULATORY - MEDICINE [facility] [place] [facility] Nov 20, 2024 10:30 AM AMBULATORY - NONE [facility] [place] [facility] Nov 26, 2024 02:00 PM AMBULATORY - PSYCHIATRY [facility] [place] [facility] Dec 02, 2024 11:00 AM AMBULATORY - MEDICINE [facility] [place] [facility] Dec 03, 2024 02:00 PM AMBULATORY - PSYCHIATRY [facility] [place] [facility] Dec 10, 2024 02:00 PM AMBULATORY - PSYCHIATRY [facility] [place] [facility] Jan 04, 2025 11:00 AM AMBULATORY - MEDICINE [facility] [place] [facility] Jan 15, 2025 09:45 AM AMBULATORY - MEDICINE [place] [facility] [place] [facility] Active, Pending, and Scheduled Orders This section includes a listing of several types of active, pending, and scheduled orders, including clinic medications orders, diagnostic test orders, procedure orders and consult orders; where the start date of the order is 45 days before the date of the Encounter or 45 days after the date of theEncounter. The data comes from all [place] treatment facilities. Test Date/Time Test Type Test Details Facility Name Aug 20, 2024 12:15 PM Consult Order COMMUNITY CARE-PULMONARY Cons Commissioning Editor's Choice [facility] [place] [facility] Aug 20, 2024 12:15 PM Consult Order COMMUNITY CARE-COLONOSCOPY SURVEILLANCE Cons Commissioning Editor's Choice [facility] [place] [facility] Aug 20, 2024 12:15 PM Consult Order COMMUNITY CARE-DEVELOPER ARCHITECT Cons Commissioning Editor's Choice [facility] [place] [facility] Aug 20, 2024 12:15 PM Consult Order [facility]UNITY [facility]ARE[facility]UROLOGY Cons Commissioning [facility] [place] [facility] Oct 27, 2024 03:39 PM Consult Order [facility] Cons Commissioning Editor's Choice [facility] Lab Results: +/- 30 days of the encounter This section includes the Chemistry and Hematology Lab Results on record with VA for the patient. Radiology Reports and Pathology Reports are provided separately, in subsequent sections. Lab Results This section contains the Chemistry/Hematology Results that were resulted 30 days before or 30 daysafter the date of the Encounter. Date/Time Source Result Type Result - Unit Interpretation Reference Range Comment Oct 09, 2024 11:03 AM [facility] METHADONE SCREEN Specimen Type: URINE Comment: YAMEL test are qualitative, any L or H flags only indicate a VA alert was sent. Ordering Provider: PHILIPPE WALLACE Report Released Date/Time: Oct 09, 2024 10:18 AM Reporting Lab: [facility] [address] [facility] [address] Performing Lab: [facility] [address] [facility] [address] METHADONE SCREEN None detected(Nega tive) L Negative Oct 09, 2024 11:03 AM [facility] ALCOHOL, ETHYL URINE PANEL Specimen Type: [...] Oct 09, 2024 10:18 AM Reporting Lab: [facility] [address] [facility] [facility] [address] Performing Lab: [address] [address] ALCOHOL, ETHYL URINE NONE-DETECTED mg/dL NONE-DETEC PRANAY, cutoff = 10 mg/dL PH, YAMEL 5.7 [pH] 4-10 CREATININE, YAMEL 153.27 mg/dL >20 SP.GRAVITY, YAMEL 1.018 1.00 3-1.02 0 Oct 09, 2024 11:03 AM [facility] AMPHETAMINES SCREEN PANEL Specimen Type: URINE [...] Oct 09, 2024 10:18 AM Reporting Lab: [address] [address] Performing Lab: [address] [address] AMPHETAMINES SCREEN NONE-DETECTED None-Detec pranay, Cutoff = 1000 ng/mL PH, YAMEL 5.7 [pH] 4-10 CREATININE, YAMEL 153.27 mg/dL >20 SP.GRAVITY, YAMEL 1.018 1.00 3-1.02 0 Oct 09, 2024 11:03 AM [facility] FENTANYL SCREEN PANEL Specimen Type: URINE [...] Oct 09, 2024 10:18 AM Reporting Lab: [address] [address] Performing Lab: [address] [address] FENTANYL SCREEN NONE-DETECTE D ng/mL Negative: Cutoff = 1.00 ng/mL PH, YAMEL 5.7 [pH] 4-10 CREATININE, YAMEL 155.37 mg/dL >20 SP.GRAVITY, YAMEL 1.018 1.00 3-1.02 0 Oct 09, 2024 11:03 AM [facility] BENZODIAZEPINES SCREEN PANEL Specimen Type: URINE [...] Oct 09, 2024 10:18 AM Reporting Lab: [address] [address] Performing Lab: [address] [address] BENZODIAZEPINES SCREEN POSITIVE HH None-Detec rpanay, Cutoff = 200 ng/mL PH, YAMEL 5.7 [pH] 4-10 CREATININE, YAMEL 153.27 mg/dL >20 SP.GRAVITY, YAMEL 1.018 1.00 3-1.02 0 Oct 09, 2024 11:03 AM [facility] BUPRENORPHINE SCREEN PANEL Specimen Type: URINE [...] Oct 09, 2024 10:18 AM Reporting Lab: [address] [address] Performing Lab: [address] [address] BUPRENORPHINE (URINE) NONE-DETECTED None Detected, Cutoff = 10.0 ng/mL PH, YAMEL 5.7 [pH] 4-10 CREATININE, YAMEL 153.27 mg/dL >20 SP.GRAVITY, YAMEL 1.018 1.00 3-1.02 0 Oct 09, 2024 11:03 AM [facility] CANNABINOIDS SCREEN PANEL Specimen Type: URINE [...] Oct 09, 2024 10:18 AM Reporting Lab: [address] [address] Performing Lab: [place] [address] CANNABINOIDS SCREEN POSITIVE HH None-Detec pranay,Cutoff = 50 ng/mL PH, YAMEL 5.7 [pH] 4-10 CREATININE, YAMEL 153.27 mg/dL >20 SP.GRAVITY, YAMEL 1.018 1.00 3-1.02 0 Oct 09, 2024 11:03 AM [facility] COCAINE SCREEN PANEL Specimen Type: URINE [...] Oct 09, 2024 10:18 AM Reporting Lab: [address] [address] Performing Lab: [address] [address] COCAINE SCREEN NONE-DETECTED N one-Detec pranay,Cutoff = 300 ng/mL PH, YAMEL 5.7 [pH] 4-10 CREATININE, YAMEL 153.27 mg/dL >20 SP.GRAVITY, YAMEL 1.018 1.00 3-1.02 0 Oct 09, 2024 11:03 AM [facility] OPIATES SCREEN PANEL Specimen Type: URINE [...] Oct 09, 2024 10:18 AM Reporting Lab: [address] [address] Performing Lab: [address] [address] OPIATES SCREEN NONE-DETECTED N one-Detec pranay, Cutoff = 300 ng/mL PH, YAMEL 5.7 [pH] 4-10 CREATININE, YAMEL 153.27 mg/dL >20 SP.GRAVITY, YAMEL 1.018 1.00 3-1.02 0 Oct 09, 2024 11:03 AM [facility] OXYCODONE SCREEN PANEL Specimen Type: URINE [...] Oct 09, 2024 10:18 AM Reporting Lab: [facility] [address] [address] Performing Lab: [place] [facility] [facility] [address] [facility] [address] OXYCODONE SCREEN POSITIVE HH Non e-Detec pranay, [...] 2024 11:30 AM VA-TOBACCO USER EVERY [facility] Tobacco Use History This section includes a history of the smoking, or tobacco-related health factors, that were collected on or before the date of the Encounter. The data comes from the [place] facility where the Encounter took place. Date/Time Smoking Status/Tobacco Use Comment F acility Aug 20, 2024 11:30 AM VA-TOBACCO USE ADVICE [place] [facility] [facility] Aug 20, 2024 11:30 AM VA-TOBACCO USE LICENSED PESTICIDE APPLICATOR NO [place] [facility] [place] [facility] Aug 20, 2024 11:30 AM VA-TOBACCO USE MED NO [place] [facility] [place] [facility] Aug 20, 2024 11:30 AM VA-TOBACCO USE WI 30 MIN OF WAKEUP [place] [facility] [place] [facility] Aug 20, 2024 11:30 AM VA-TOBACCO USER EVERY DAY [place] [facility] [facility] Aug 15, 2023 04:34 PM VA-TOBACCO DOESNT USE WI 30 MIN WAKEUP [place] [facility] [place] [facility] Aug 15, 2023 04:34 PM VA-TOBACCO USE > 1 5 LESS THAN 30 YEARS [place] [facility] [facility] Aug 15, 2023 04:34 PM VA-TOBACCO USE ADVICE [place] [facility] Aug 15, 2023 04:34 PM VA-TOBACCO USE LICENSED PESTICIDE APPLICATOR NO [place] [facility] [place] [facility] Aug 15, 2023 04:34 PM VA-TOBACCO USE MED NO [facility] Aug 15, 2023 04:34 PM [facility] Encounter Notes: All associated encounter notes This section contains the clinical notes associated to the Encounter. Date/Time Encounter Note(s) Provider Source Sep 17, 2024 10:28 AM ADMINISTRATIVE NOTE: [facility] TITLE: ADMINISTRATIVE NOTE STANDARD TITLE: ADMINISTRATIVE NOTE DATE OF NOTE: SEP 17, 2024@10:28 ENTRY DATE: SEP 17, 2024@10:28:55 AUTHOR: RADHA HERNANDEZ EXP COSIGNER: URGENCY: STATUS: COMPLETED Neighborhood Planner/AMSA mailed no show letter on 09/17/2024, 10/01/2024 disposition. /leticia/ RADHA HERNANDEZ ADVANCED PROGRAM COORDINATOR EXECUTIVE EDUCATION Signed: 09/17/2024 10:29 [facility]
--- OUTSIDE RECORDS SUMMARY | 2024-11-20 10:05 | XMS_ITS ---
Author Name [facility] [place] Organization [facility] [place] Address [address] [place] [address] Care Team Providers Care Robot Designer Name Role Phone JAVI TYLER Primary Care [...] Policy Travis [facility] 2017 [facility] NON-B ILL 2024 [facility] [id number] JAVI MURGUIA PATIENT Selected Encounter This section includes the information on record at [place] for the Encounter. Date/Time Encounter Type Encounter Description Reason Provider Source Oct 09, 2024 12:13 PM HC PRO PHONE CALL 11-20 MIN TELEPHONE PRIMARY CARE ICD-10-CM J44.9 Chronic obstructive pulmonary disease, unspecified ROSAMARIA DEWEY Everardo Encounter Template Text not used by [place] Assessments - Encounter Diagnoses This section includes the primary and secondary diagnoses documented for the Encounter. Date/Time Primary/Secondary Diagnosis Diagnosis Name Provider Source Oct 09, 2024 12:13 PM PRIMARY Chronic obstructive pulmonary disease, unspecified ROSAMARIA DEWEY [place] [facility] [place] [facility] Plan of Treatment: Future Appointments (+ 6 months) and Future Tests (+/- 45 days) The Plan of Treatment section includes future care activities for the patient from all [place] [facility] This section includes future appointments and future orders which are active, pending or scheduled. Future Appointments This section includes appointments that were scheduled to occur 6 months from the date of the Encounter, up to a maximum of 20 appointments. The data comes from all [facility] facilities. Appointment Date/Time Appointment Type Appointme nt Facility Name Oct 15, 2024 04:00 PM AMBULATORY - REHAB MEDICIN E [place] [facility] [place] [facility] Oct 27, 2024 01:00 PM AMBULATORY - PSYCHIATRY [place] [facility] [place] [facility] Oct 28, 2024 10:00 AM AMBULATORY - MEDICINE [place] [facility] [place] [facility] Nov 17, 2024 02:45 PM AMBULATORY - MEDICINE [place] [facility] [place] [facility] Nov 20, 2024 10:30 AM AMBULATORY - NONE [place] [facility] [place] [facility] Nov 26, 2024 02:00 PM AMBULATORY - PSYCHIATRY [place] [facility] [place] [facility] Dec 02, 2024 11:00 AM AMBULATORY - MEDICINE [place] [facility] [place] [facility] Dec 03, 2024 02:00 PM AMBULATORY - PSYCHIATRY [place] [facility] [place] [facility] Dec 10, 2024 02:00 PM AMBULATORY - PSYCHIATRY [facility] [place] [facility] Jan 04, 2025 11:00 AM AMBULATORY - MEDICINE [place] [facility] [place] [facility] Jan 15, 2025 09:45 AM AMBULATORY - MEDICINE [place] [facility] [place] [facility] Active, Pending, and Scheduled Orders This section includes a listing of several types of active, pending, and scheduled orders, including clinic medications orders, diagnostic test orders, procedure orders and consult orders; where the start date of the order is 45 days before the date of the Encounter or 45 days after the date of theEncounter. The data comes from all [facility]. Test Date/Time Test Type Test Details Facility Name Oct 27, 2024 03:39 PM Consult Order [facility] Cons [facility] Technician's Choice [facility] Lab Results: +/- 30 days of the encounter This section includes the Chemistry and Hematology Lab Results on record with [place] for the patient. Radiology Reports and Pathology Reports are provided separately, in subsequent sections. Lab Results This section contains the Chemistry/Hematology Results that were resulted 30 days before or 30 daysafter the date of the Encounter. Date/Time Source Result Type Result - Unit Interpretation Reference Range Comment Oct 09, 2024 11:03 AM [facility] METHADONE SCREEN Specimen Type: URINE Comment: YAMEL test are qualitative, any L or H flags only indicate a [place] alert was sent. Ordering Provider: PHILIPPE WALLACE Report Released Date/Time: Oct 09, 2024 10:18 AM Reporting Lab: [address] [address] Performing Lab: [facility] [address] [facility] [address] METHADONE SCREEN None detected(Nega tive) L Negative Oct 09, 2024 11:03 AM [facility] AMPHETAMINES SCREEN PANEL Specimen Type: URINE [...] Oct 09, 2024 10:18 AM Reporting Lab: [facility] [address] [facility] [address] Performing Lab: [address] [address] AMPHETAMINES SCREEN NONE-DETECTED None-Detec pranay, Cutoff = 1000 ng/mL PH, YAMEL 5.7 [pH] 4-10 CREATININE, YAMEL 153.27 mg/dL >20 SP.GRAVITY, YAMEL 1.018 1.00 3-1.02 0 Oct 09, 2024 11:03 AM [facility] ALCOHOL, ETHYL URINE PANEL Specimen Type: [...] 09, 2024 10:18 AM Reporting Lab: [address] [address] Performing Lab: [address] [address] ALCOHOL, ETHYL URINE NONE-DETECTED mg/dL NONE-DETEC PRANAY, cutoff = 10 mg/dL PH, YAMEL 5.7 [pH] 4-10 CREATININE, YAMEL 153.27 mg/dL >20 SP.GRAVITY, YAMEL 1.018 1.00 3-1.02 0 Oct 09, 2024 11:03 AM [facility] FENTANYL SCREEN PANEL Specimen Type: URINE [...] 09, 2024 10:18 AM Reporting Lab: [address] [address] Performing Lab: [address] [address] FENTANYL SCREEN NONE-DETECTE D ng/mL Negative: Cutoff = 1.00 ng/mL PH, YAMEL 5.7 [pH] 4-10 CREATININE, YAMEL 155.37 mg/dL >20 SP.GRAVITY, YAMEL 1.018 1.00 3-1.02 0 Oct 09, 2024 11:03 AM [facility] BENZODIAZEPINES SCREEN PANEL Specimen Type: URINE [...] 09, 2024 10:18 AM Reporting Lab: [address] [address] Performing Lab: [address] [address] BENZODIAZEPINES SCREEN POSITIVE HH None-Detec pranay, Cutoff = 200 ng/mL PH, YAMEL 5.7 [pH] 4-10 CREATININE, YAMEL 153.27 mg/dL >20 SP.GRAVITY, YAMEL 1.018 1.00 3-1.02 0 Oct 09, 2024 11:03 AM [facility] BUPRENORPHINE SCREEN PANEL Specimen Type: URINE [...] 09, 2024 10:18 AM Reporting Lab: [address] [address] Performing Lab: [address] [address] BUPRENORPHINE (URINE) NONE-DETECTED None Detected, Cutoff = 10.0 ng/mL PH, YAMEL 5.7 [pH] 4-10 CREATININE, YAMEL 153.27 mg/dL >20 SP.GRAVITY, YAMEL 1.018 1.00 3-1.02 0 Oct 09, 2024 11:03 AM [facility] CANNABINOIDS SCREEN PANEL Specimen Type: URINE [...] 09, 2024 10:18 AM Reporting Lab: [address] [address] Performing Lab: [address] [address] CANNABINOIDS SCREEN POSITIVE HH None-Detec pranay,Cutoff = 50 ng/mL PH, YAMEL 5.7 [pH] 4-10 CREATININE, YAMEL 153.27 mg/dL >20 SP.GRAVITY, YAMEL 1.018 1.00 3-1.02 0 Oct 09, 2024 11:03 AM [facility] COCAINE SCREEN PANEL Specimen Type: URINE [...] Oct 09, 2024 10:18 AM Reporting Lab: [facility] [employer] [address] Performing Lab: [address] [address] COCAINE SCREEN NONE-DETECTED N one-Detec pranay,Cutoff = 300 ng/mL PH, YAMEL 5.7 [pH] 4-10 CREATININE, YAMEL 153.27 mg/dL >20 SP.GRAVITY, YAMEL 1.018 1.00 3-1.02 0 Oct 09, 2024 11:03 AM [facility] OPIATES SCREEN PANEL Specimen Type: URINE [...] 09, 2024 10:18 AM Reporting Lab: [address] [address] Performing Lab: [address] [address] OPIATES SCREEN NONE-DETECTED N one-Detec pranay, Cutoff = 300 ng/mL PH, YAMEL 5.7 [pH] 4-10 CREATININE, YAMEL 153.27 mg/dL >20 SP.GRAVITY, YAMEL 1.018 1.00 3-1.02 0 Oct 09, 2024 11:03 AM [facility] OXYCODONE SCREEN PANEL Specimen Type: URINE [...] 09, 2024 10:18 AM Reporting Lab: [address] [address] Performing Lab: [address] [address] OXYCODONE SCREEN POSITIVE HH Non e-Detec pranay, Cutoff = 100 ng/mL PH, YAMEL 5.7 [pH] 4-10 CREATININE, YAMEL 153.27 mg/dL >20 SP.GRAVITY, YAMEL 1.018 1.00 3-1.02 0 Social History: Smoking Status (Most current) and Tobacco Use (All prior to encounter date) This section includes the most current, and the historical, smoking and tobacco- related health factors from the [place] facility where the Encounter took place. Current Smoking Status This section includes the most current smoking, or tobacco-related health factor, from the [place] facility where the Encounter took place. Date/Time Current Smoking Status Comment Facil ity Aug 20, 2024 11:30 AM VA-TOBACCO USER EVERY DAY [facility] Tobacco Use History This section includes a history of the smoking, or tobacco-related health factors, that were collected on or before the date of the Encounter. The data comes from the [place] facility where the Encounter took place. Date/Time Smoking Status/Tobacco Use Comment F acility Aug 20, 2024 11:30 AM VA-TOBACCO USE ADVICE [facility] [place] [facility] Aug 20, 2024 11:30 AM VA-TOBACCO USE APPLICATION SYSTEMS ARCHITECT NO [facility] [place] [facility] Aug 20, 2024 11:30 AM VA-TOBACCO USE MED NO [facility] [place] [facility] Aug 20, 2024 11:30 AM VA-TOBACCO USE WI 30 MIN OF WAKEUP [place] [facility] [place] [facility] Aug 20, 2024 11:30 AM VA-TOBACCO USER EVERY DAY [facility] [place] [facility] Aug 15, 2023 04:34 PM VA-TOBACCO DOESNT USE WI 30 MIN WAKEUP [facility] [place] [facility] Aug 15, 2023 04:34 PM VA-TOBACCO USE > 1 5 LESS THAN 30 YEARS [facility] [place] [facility] Aug 15, 2023 04:34 PM VA-TOBACCO USE ADVICE [facility] [place] [facility] Aug 15, 2023 04:34 PM VA-TOBACCO USE APPLICATION SYSTEMS ARCHITECT NO [facility] [place] [facility] Aug 15, 2023 04:34 PM VA-TOBACCO USE MED NO [facility] [place] [facility] Aug 15, 2023 04:34 PM [facility] Encounter Notes: All associated encounter notes This section contains the clinical notes associated to the Encounter. Date/Time Encounter Note(s) Provider Source Oct 09, 2024 12:13 PM RESPIRATORY THERAP Y CONSULT: LOCAL TITLE: CONSULT REPORT/RESPIRATORY THERAPY STANDARD TITLE: RESPIRATORY THERAPY CONSULT DATE OF NOTE: OCT 09, 2024@12:13 ENTRY DATE: OCT 09, 2024@12:13:29 AUTHOR: SON DEWEY EXP COSIGNER: URGENCY: STATUS: COMPLETED CONSULT REPORT/RESPIRATORY THERAPY Has ADDENDA Telephone Coding and Documentation: Diagnosis: COPD Actual time spent with Patient via telephone: 20 minutes. [place] was called about his consult for a new nebulizer compressor. He was ordered a tabletop nebulizer compressor, a portable compressor, 5 filters and 10 neb kits from [facility]. We reviewed how to use the device, how often to change the kits and filters, and how to keep things clean between treatments. He was sent written cleaning instructions, contact information for this clinic and will call when he is ready for more supplies. Martine is also interested in changing his CPAP to [facility] for ongoing support. He says he did his sleep study at [facility] in [place] and will alert his PACT to request a copy of the sleep study for his chart. /ashley DEWEY BA, SWIMMING POOL CLEANER, RPFT RESPIRATORY THERAPIST Signed: 10/09/2024 14:41 Receipt Acknowledged By: 10/09/2024 14:46 /leticia/ JAVI TYLER MD PHYSICIAN 10/09/2024 14:47 /leticia/ Taya Palomo RN Primary Care Staff Nurse 10/09/2024 ADDENDUM STATUS: COMPLETED Sleep study was requested after [facility] PCP visit in August. Will request again- these notes are not viewable in [facility] portal. On chart review Mariela may have had sleep study around [id number] /ashley Palomo RN Primary Care Staff Nurse Signed: 10/09/2024 15:07 SON DEWEY [facility]
--- OUTSIDE RECORDS SUMMARY | 2024-11-20 10:05 | XMS_ITS | Encounter Summary ---
Author Name [facility] [place] Organization [facility] [place] [facility] [place] Address [address] [place] [address] Care Team Providers Care Customer Care Coordinator Name Role Phone JAVI TYLER Primary [...] Patient's Relationship to Policy Travis [facility] 2017 [facility] NON-B ILL 2024 [facility] [id number] JAVI MURGUIA PATIENT Selected Encounter This section includes the information on record at [place] for the Encounter. Date/Time Encounter Type Encounter Description Reason Pro vider Source Dec 17, 2023 12:00 AM Outpatient Encounter EVENT (HISTORICAL) IHE Encounter Template Text not used by [...] 20 appointments. The data comes from all [place] treatment facilities. Appointment Date/Time Appointment Type Appointme nt Facility Name Dec 18, 2023 11:00 AM AMBULATORY - MEDICINE [place] [facility] [place] [facility] Feb 18, 2024 02:45 PM AMBULATORY - MEDICINE [place] [facility] [place] [facility] April 10, 2024 11:15 AM AMBULATORY - MEDICINE [place] [facility] [place] [facility] May 25, 2024 02:00 PM AMBULATORY - MEDICINE [facility] Social History: Smoking Status (Most current) and Tobacco Use (All prior to encounter date) This section includes the most current, and the historical, smoking and tobacco- related health factors from the [place] facility where the Encounter took place. Current Smoking Status This section includes the most current smoking, or tobacco-related health factor, from the [place] facility where the Encounter took place. Date/Time Current Smoking Status Comment Facil ity Aug 15, 2023 04:34 PM VA-TOBACCO USER EVERY DAY [facility] Tobacco Use History This section includes a history of the smoking, or tobacco-related health factors, that were collected on or before the date of the Encounter. The data comes from the [place] facility where the Encounter took place. 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 Date/Time Encounter Note(s) Provider Source Dec 17, 2023 12:00 AM NONVA NOTE: LOCAL TITLE: NON-VA OUTPATIENT NOTES STANDARD TITLE: NONVA NOTE DATE OF NOTE: DEC 17, 2023 ENTRY DATE: SEP 17, 2024@12:32:28 AUTHOR: REY GILBERT EXP COSIGNER: URGENCY: STATUS: COMPLETED VistA Imaging - Scanned Document SCANNED DOCUMENT SIGNATURE NOT REQUIRED Electronically Filed: 09/17/2024 by: REY JUAREZ [place] [facility] [place] [facility]
--- OUTSIDE RECORDS SUMMARY | 2024-11-20 10:05 | XMS_ITS | Encounter Summary ---
Author Name [facility] [place] Address [address] [place] [address] Care Team Providers Care Ruby On Rails Web Developer Name Role Phone JAVI TYLER Primary [...] Patient's Relationship to Policy Travis [facility] 2017 [facility] NON-B ILL 2024 [facility] [id number] [phone] JAVI MURGUIA PATIENT Selected Encounter This section includes the information on record at [place] for the Encounter. Date/Time Encounter Type Encounter Description Reason Pro vider Source Jan 31, 2024 12:00 AM Outpatient Encounter EVENT (HISTORICAL) IHE [...] PM AMBULATORY - MEDICINE [place] [facility] [facility] April 10, 2024 11:15 AM AMBULATORY - MEDICINE [place] [facility] May 25, 2024 02:00 PM AMBULATORY - MEDICINE [place] [facility] Jul 16, 2024 09:00 AM AMBULATORY - MEDICINE [place] [facility] Jul 20, 2024 11:30 AM [facility] [place] [facility] Lab Results: +/- 30 days [...] Range Comment Feb 18, 2024 03:57 PM [facility] ETG SCREEN (wx) Specimen Type: URINE Comment: YAMEL test are qualitative, any L or H flags only indicate a VA alert was sent. This ETG test was developed and its performance characteristics determined by [place] clinical lab. The [place] Food and Drug Administration has not approved or cleared this test, FDA clearance or approval is not currently required for clinical use. ETG cutoff 500 ng/mL YAMEL Screens are for medical purposes. For confirmation use YAMEL Confirmation Add on Menu in CPRS. Ordering Provider: SE STEPHENIE WALLACE Report Released Date/Time: Jan 17, 2024 10:50 AM Reporting Lab: [facility] [place] [facility] [address] [facility] [address] Performing Lab: [facility] [address] [facility] [address] ETG SCREEN (wx) SCREEN POS H Negative Feb 18, 2024 03:57 PM [facility] METHADONE SCREEN Specimen Type: URINE Comment: YAMEL test are qualitative, any L or H flags only indicate a VA alert was sent. Ordering Provider: SE STEPHENIE WALLACE Report Released Date/Time: Jan 17, 2024 10:50 AM Reporting Lab: [facility] [address] [facility] [address] Performing Lab: [facility] [address] [facility] [address] METHADONE SCREEN None detected(Negati ve) L Negative Feb 18, 2024 03:[address] [facility] ALCOHOL, ETHYL URINE PANEL Specimen Type: [...] Jan 17, 2024 10:50 AM Reporting Lab: [address] [address] Performing Lab: [address] [address] ALCOHOL, ETHYL URINE NONE-DETECTED mg/dL NONE-DETEC PRANAY, cutoff = 10 mg/dL PH, YAMEL 6.4 [pH] 4-10 CREATININE, YAMEL 236.21 mg/dL >20 SP.GRAVITY, YAMEL 1.012 1.00 3-1.02 0 Feb 18, 2024 03:[address] [facility] AMPHETAMINES SCREEN PANEL Specimen Type: URINE [...] Jan 17, 2024 10:50 AM Reporting Lab: [address] [place] [address] Performing Lab: [address] [address] AMPHETAMINES SCREEN NONE-DETECTED None-Detec pranay, Cutoff = 1000 ng/mL PH, YAMEL 6.4 [pH] 4-10 CREATININE, YAMEL 236.21 mg/dL >20 SP.GRAVITY, YAMEL 1.012 1.00 3-1.02 0 Feb 18, 2024 03:[address] [facility] FENTANYL SCREEN PANEL Specimen Type: URINE [...] Jan 17, 2024 10:50 AM Reporting Lab: [address] [address] Performing Lab: [address] [address] FENTANYL SCREEN NONE-DETECTE D ng/mL Negative: Cutoff = 1.00 ng/mL PH, YAMEL 6.4 [pH] 4-10 CREATININE, YAMEL 230.99 mg/dL >20 SP.GRAVITY, YAMEL 1.012 1.00 3-1.02 0 Feb 18, 2024 03:[address] [facility] BENZODIAZEPINES SCREEN PANEL Specimen Type: URINE [...] Jan 17, 2024 10:50 AM Reporting Lab: [address] [address] Performing Lab: [address] [address] BENZODIAZEPINES SCREEN NONE-DETECTED None-Detec pranay, Cutoff = 200 ng/mL PH, YAMEL 6.4 [pH] 4-10 CREATININE, YAMEL 236.21 mg/dL >20 SP.GRAVITY, YAMEL 1.012 1.00 3-1.02 0 Feb 18, 2024 03:[address] [facility] BUPRENORPHINE SCREEN PANEL Specimen Type: URINE [...] Jan 17, 2024 10:50 AM Reporting Lab: [address] [address] Performing Lab: [address] [address] BUPRENORPHINE (URINE) POSITIVE HH None Detected, Cutoff = 10.0 ng/mL PH, YAMEL 6.4 [pH] 4-10 CREATININE, YAMEL 236.21 mg/dL >20 SP.GRAVITY, YAMEL 1.012 1.00 3-1.02 0 Feb 18, 2024 03:[address] [facility] COCAINE SCREEN PANEL Specimen Type: URINE [...] 11 may have been adulterated. Ordering Provider: KUPFERSCHMID,SE TH B Report Released Date/Time: Jan 17, 2024 10:50 AM Reporting Lab: [address] [address] Performing Lab: [address] [address] COCAINE SCREEN NONE-DETECTED N one-Detec pranay,Cutoff = 300 ng/mL PH, YAMEL 6.4 [pH] 4-10 CREATININE, YAMEL 236.21 mg/dL >20 SP.GRAVITY, YAMEL 1.012 1.00 3-1.02 0 Feb 18, 2024 03:[address] [facility] CANNABINOIDS SCREEN PANEL Specimen Type: URINE [...] Jan 17, 2024 10:50 AM Reporting Lab: [address] [address] Performing Lab: [address] [address] CANNABINOIDS SCREEN NONE-DETECTED None-Detec pranay,Cutoff = 50 ng/mL PH, YAMEL 6.4 [pH] 4-10 CREATININE, YAMEL 236.21 mg/dL >20 SP.GRAVITY, YAMEL 1.012 1.00 3-1.02 0 Feb 18, 2024 03:[address] [facility] OPIATES SCREEN PANEL Specimen Type: URINE [...] Jan 17, 2024 10:50 AM Reporting Lab: [address] [address] Performing Lab: [address] [address] OPIATES SCREEN NONE-DETECTED N one-Detec pranay, Cutoff = 300 ng/mL PH, YAMEL 6.4 [pH] 4-10 CREATININE, YAMEL 236.21 mg/dL >20 SP.GRAVITY, YAMEL 1.012 1.00 3-1.02 0 Feb 18, 2024 03:[address] [facility] OXYCODONE SCREEN PANEL Specimen Type: URINE [...] Jan 17, 2024 10:50 AM Reporting Lab: [address] [address] Performing Lab: [address] [address] OXYCODONE SCREEN NONE-DETECTED None-Detec pranay, Cutoff = 100 ng/mL PH, YAMEL 6.4 [pH] 4-10 CREATININE, YAMEL 236.21 mg/dL >20 SP.GRAVITY, YAMEL 1.012 1.00 3-1.02 0 Feb 18, 2024 03:[address] [facility] BARBITURATES SCREEN PANEL Specimen Type: URINE Comment: [...] Jan 17, 2024 10:50 AM Reporting Lab: [address] [address] Performing Lab: [address] [address] BARBITURATES SCREEN NONE-DETECTED None-Detec pranay,Cutoff = 200 ng/mL PH, YAMEL 6.4 [pH] 4-10 CREATININE, YAMEL 236.21 mg/dL >20 SP.GRAVITY, YAMEL 1.012 1.00 3-1.02 0 Feb 18, 2024 03:[address] [facility] LIVER FUNCTION Specimen Type: SERUM No comment entered. Ordering Provider: SE STEPHENIE WALLACE Report Released Date/Time: Jan 17, 2024 10:50 AM Reporting Lab: [address] [address] Performing Lab: [address] [address] PROTEIN,TOTAL 7.0 g/dL 6.0-8.3 ALBUMIN 3.6 g/dL 3.5-5.0 ALKALINE PHOSPHATASE 69 U/L 40-150 AST 28 U/L 5-34 ALT 22 U/L BILIRUBIN, TOTAL 0.4 mg/dL 0.2-1.2 Feb 18, 2024 03:[address] [facility] BASIC METABOLIC PANEL (non-fasting) Specimen Type: SERUM No comment entered. Ordering Provider: SE STEPHENIE WALLACE Report Released Date/Time: Jan 17, 2024 10:50 AM Reporting Lab: [address] [address] Performing Lab: [address] [address] UREA NITROGEN 10 mg/dL 7-25 GLUCOSE 103 mg/dL H 65-100 SODIUM 138 mmol/L 135-145 POTASSIUM 3.1 mmol/L L 3.5-5.0 CHLORIDE 100 mmol/L 100-110 CO2 27 meq/L 20-30 CREATININE, Serum 0.79 mg/dL 0.50-1.40 eGFR(CKD-EPI 2020) >90 mL/min >60 Feb 18, 2024 03:[address] [facility] CBC Specimen Type: BLOOD No comment entered. Ordering Provider: SE STEPHENIE WALLACE Report Released Date/Time: Jan 17, 2024 10:50 AM Reporting Lab: [facility] [address] [facility] [address] Performing Lab: [facility] [address] [facility] [address] WBC 8.71 10*3/uL 4.50-11.00 RBC 4.33 10*6/uL [...] 2023 04:34 PM VA-TOBACCO USER EVERY DAY [facility] Tobacco Use History This section includes a history of the smoking, or tobacco-related health factors, that were collected on or before the date of the Encounter. The data comes from the [place] facility where the Encounter took place. 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 Date/Time Encounter Note(s) Provider Source Jan 31, 2024 12:00 AM NONVA NOTE: LOCAL TITLE: NON-VA OUTPATIENT NOTES STANDARD TITLE: NONVA NOTE DATE OF NOTE: JAN 31, 2024 ENTRY DATE: SEP 17, 2024@12:09:56 AUTHOR: REY GILBERT EXP COSIGNER: URGENCY: STATUS: COMPLETED VistA Imaging - Scanned Document SCANNED DOCUMENT SIGNATURE NOT REQUIRED Electronically Filed: 09/17/2024 by: REY JUAREZ [facility]
--- OUTSIDE RECORDS SUMMARY | 2024-11-20 10:05 | XMS_ITS | Encounter Summary ---
Author Name [facility] [facility] [place] Organization [place] Address [address] [place] [address] Care Team Providers Care Senior Functional Analyst Name Role Phone JAVI TYLER Primary [...] Travis's Name Patient's Relationship to Policy Travis [facility] 2017 [facility] T CARE NON-B ILL 2024 [facility] [id number] JAVI MURGUIA PATIENT Selected Encounter This section includes the information on record at [place] for the Encounter. Date/Time Encounter Type Encounter Description Reason Pro vider Source Oct 05, 2024 10:40 AM Outpatient Encounter TELEPHONE TRIAGE IHE Encounter Template Text not used by [...] The data comes from all [place] treatment [facility]. Appointment Date/Time Appointment Type Appointme nt Facility Name Oct 09, 2024 09:30 AM AMBULATORY - MEDICINE [place] [facility] [place] [facility] Oct 15, 2024 04:00 PM AMBULATORY - REHAB MEDICIN E [place] [facility] [place] [facility] Oct 27, 2024 01:00 PM AMBULATORY - PSYCHIATRY [place] [facility] [place] [facility] Oct 28, 2024 10:00 AM AMBULATORY - MEDICINE [place] [facility] [place] [facility] Nov 17, 2024 02:45 PM AMBULATORY - MEDICINE [place] [facility] Nov 20, 2024 10:30 AM AMBULATORY - NONE [place] [facility] [place] [facility] Nov 26, 2024 02:00 PM AMBULATORY - PSYCHIATRY [place] [facility] [place] [facility] Dec 02, 2024 11:00 AM AMBULATORY - MEDICINE [place] [facility] Dec 03, 2024 02:00 PM AMBULATORY - PSYCHIATRY [place] [facility] [place] [facility] Dec 10, 2024 02:00 PM AMBULATORY - PSYCHIATRY [place] [facility] [place] [facility] Jan 04, 2025 11:00 AM AMBULATORY - MEDICINE [place] [facility] [facility] Jan 15, 2025 09:45 AM AMBULATORY - MEDICINE [place] [facility] Active, Pending, and Scheduled Orders This section includes a listing of several types of active, pending, and scheduled orders, including clinic medications orders, diagnostic test orders, procedure orders and consult orders; where the start date of the order is 45 days before the date of the Encounter or 45 days after the date of theEncounter. The data comes from all [facility]. Test Date/Time Test Type Test Details Facility Name Oct 27, 2024 03:39 PM Consult Order [facility] OUTPT Cons Isotope Technologist's Choice [place] [facility] [place] [facility] Lab Results: +/- 30 days of the encounter This section includes the Chemistry and Hematology Lab Results on record with [place] for the patient. Radiology Reports and Pathology Reports are provided separately, in subsequent sections. Lab Results This section contains the Chemistry/Hematology Results that were resulted 30 days before or 30 daysafter the date of the Encounter. Date/Time Source Result Type Result - Unit Interpretation Reference Range Comment Oct 09, 2024 11:03 AM [facility] METHADONE SCREEN Specimen Type: URINE Comment: YAMEL test are qualitative, any L or H flags only indicate a VA alert was sent. Ordering Provider: PHILIPPE WALLACE Report Released Date/Time: Oct 09, 2024 10:18 AM Reporting Lab: [facility] [address] [facility] [address] Performing Lab: [facility] [address] [facility] [address] METHADONE SCREEN None detected(Nega tive) L Negative Oct 09, 2024 11:03 AM [facility] ALCOHOL, ETHYL URINE PANEL Specimen Type: [...] Oct 09, 2024 10:18 AM Reporting Lab: [facility] [address] [facility] [address] Performing Lab: [address] [address] ALCOHOL, ETHYL URINE NONE-DETECTED mg/dL NONE-DETEC PRANAY, cutoff = 10 mg/dL PH, YAMEL 5.7 [pH] 4-10 CREATININE, YAMEL 153.27 mg/dL >20 SP.GRAVITY, YAMEL 1.018 1.00 3-1.02 0 Oct 09, 2024 11:03 AM [facility] AMPHETAMINES SCREEN PANEL Specimen Type: URINE [...] Oct 09, 2024 10:18 AM Reporting Lab: [address] [address] Performing Lab: [address] [address] AMPHETAMINES SCREEN NONE-DETECTED None-Detec pranay, Cutoff = 1000 ng/mL PH, YAMEL 5.7 [pH] 4-10 CREATININE, YAMEL 153.27 mg/dL >20 SP.GRAVITY, YAMEL 1.018 1.00 3-1.02 0 Oct 09, 2024 11:03 AM [facility] FENTANYL SCREEN PANEL Specimen Type: URINE [...] Oct 09, 2024 10:18 AM Reporting Lab: [address] [address] Performing Lab: [address] [address] FENTANYL SCREEN NONE-DETECTE D ng/mL Negative: Cutoff = 1.00 ng/mL PH, YAMEL 5.7 [pH] 4-10 CREATININE, YAMEL 155.37 mg/dL >20 SP.GRAVITY, YAMEL 1.018 1.00 3-1.02 0 Oct 09, 2024 11:03 AM [facility] BENZODIAZEPINES SCREEN PANEL Specimen Type: URINE [...] Oct 09, 2024 10:18 AM Reporting Lab: [address] [address] Performing Lab: [address] [address] BENZODIAZEPINES SCREEN POSITIVE HH None-Detec pranay, Cutoff = 200 ng/mL PH, YAMEL 5.7 [pH] 4-10 CREATININE, YAMEL 153.27 mg/dL >20 SP.GRAVITY, YAMEL 1.018 1.00 3-1.02 0 Oct 09, 2024 11:03 AM [facility] BUPRENORPHINE SCREEN PANEL Specimen Type: URINE [...] Oct 09, 2024 10:18 AM Reporting Lab: [address] [address] Performing Lab: [address] [address] BUPRENORPHINE (URINE) NONE-DETECTED None Detected, Cutoff = 10.0 ng/mL PH, YAMEL 5.7 [pH] 4-10 CREATININE, YAMEL 153.27 mg/dL >20 SP.GRAVITY, YAMEL 1.018 1.00 3-1.02 0 Oct 09, 2024 11:03 AM [facility] CANNABINOIDS SCREEN PANEL Specimen Type: URINE [...] Oct 09, 2024 10:18 AM Reporting Lab: [address] [address] Performing Lab: [address] [address] CANNABINOIDS SCREEN POSITIVE HH None-Detec pranay,Cutoff = 50 ng/mL PH, YAMEL 5.7 [pH] 4-10 CREATININE, YAMEL 153.27 mg/dL >20 SP.GRAVITY, YAMEL 1.018 1.00 3-1.02 0 Oct 09, 2024 11:03 AM [facility] COCAINE SCREEN PANEL Specimen Type: URINE [...] Oct 09, 2024 10:18 AM Reporting Lab: [address] [address] Performing Lab: [address] [address] COCAINE SCREEN NONE-DETECTED N one-Detec pranay,Cutoff = 300 ng/mL PH, YAMEL 5.7 [pH] 4-10 CREATININE, YAMEL 153.27 mg/dL >20 SP.GRAVITY, YAMEL 1.018 1.00 3-1.02 0 Oct 09, 2024 11:03 AM [facility] OPIATES SCREEN PANEL Specimen Type: URINE [...] Oct 09, 2024 10:18 AM Reporting Lab: [facility] [email or web address] [address] Performing Lab: [address] [address] OPIATES SCREEN NONE-DETECTED N one-Detec pranay, Cutoff = 300 ng/mL PH, YAMEL 5.7 [pH] 4-10 CREATININE, YAMEL 153.27 mg/dL >20 SP.GRAVITY, YAMEL 1.018 1.00 3-1.02 0 Oct 09, 2024 11:03 AM [facility] OXYCODONE SCREEN PANEL Specimen Type: URINE [...] Oct 09, 2024 10:18 AM Reporting Lab: [address] [address] Performing Lab: [address] [address] OXYCODONE SCREEN POSITIVE HH Non e-Detec pranay, [...] ity Aug 20, 2024 11:30 AM VA-TOBACCO USE [place] 30 MIN OF WAKEUP [place] [facility] Tobacco Use History This section includes a history of the smoking, or tobacco-related health factors, that were collected on or before the date of the Encounter. The data comes from the [place] facility where the Encounter took place. 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 [facility] [facility] Aug 20, 2024 11:30 AM VA-TOBACCO USE MED NO [place] [facility] [place] [facility] Aug 20, 2024 11:30 AM VA-TOBACCO USE WI 30 MIN OF WAKEUP [facility] [place] [facility] Aug 20, 2024 11:30 AM VA-TOBACCO USER EVERY DAY [facility] [place] [facility] Aug 15, 2023 04:34 PM VA-TOBACCO DOESNT USE WI 30 MIN WAKEUP [facility] [place] [facility] Aug 15, 2023 04:34 PM VA-TOBACCO USE > 1 5 LESS THAN 30 YEARS [facility] [facility] Aug 15, 2023 04:34 PM VA-TOBACCO USE ADVICE [facility] [facility] Aug 15, 2023 04:34 PM VA-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 Date/Time Encounter Note(s) Provider Source Oct 05, 2024 10:40 AM RN PROGRESS NOTE: LOCAL TITLE: CCC: CLINICAL TRIAGE STANDARD TITLE: RN PROGRESS NOTE DATE OF NOTE: OCT 05, 2024@10:40:22 ENTRY DATE: OCT 05, 2024@10:40:22 AUTHOR: AMY FLEMING MA EXP COSIGNER: URGENCY: STATUS: COMPLETED CCC: CLINICAL TRIAGE Has ADDENDA Patient Demographics Patient Name: JAVI DAMON Patient Primary [address]: [address] [place] [id number] Patient Primary Phone: [phone] Patient : 1970 Patient Age: 54 Caller/Recipient Relation to Patient: Self Caller Name: JAVI DAMON Emergency Contact: ELYSIA GODFREY Triage Summary Conducted triage/discussed symptoms Pain Score: 8 (Severe Pain) Utilized the Triage Tool: Yes Chief Complaint: Foot Pain System WHEN: Now Nurse's Recommendation / WHEN: Now System WHERE: Emergency department Nurse's Recommendation / WHERE: ED [facility] Patient Disposition Patient/Caregiver agrees to plan of care: Yes Patient is Urgent or Emergent Nursing Plan and Disposition Referred patient to higher level of care Instructed to go to Emergency Room (ER) Advised of Financial Disclaimer: Patient advised that recommendation for care provided during the call does not constitute an approval or authorization for payment by the [place] or its staff. Patient advised to report a community ED visit to the [facility] Office of Community Care at within 72 hours. Other course(s) of action Generated msg to PACT/Provider Nurse Summary Nurse Summary: SITUATION: States 2 days ago he developed pain, redness, mild swelling to left ankle, top of left foot and into toes. Today he woke up with severe pain to the point that he has to walk on his right heel and use a cane. Denies history of gout. Temperature of the foot is normal. Denies recent injury, but states stubbed left 3rd toe 3 weeks ago and the toe is bruised. *See [facility] details below for additional +/- signs & symptoms. RN RECOMMENDATION: Triage outcome is ER and he was agreeable. He will present to [facility] now for evaluation and treatment. Clinical Contact Center Codes Clinic/Location: V1 CWM PHONE [facility] RN Decision Support System Output: Triage Complete Triage Date: 10/05/2024, 10:31 AM Triage Note: Decision Support Tool Used: TXCC Phone Triage 05 Oct 2024 15:24:01 +0000 UTC Demographics 54 y/o Male Results CC: Foot Pain Software suggested: Now Software suggested follow-up location: Emergency department Values and Measures Duration of CC: 2 Days Positive Responses HPI: foot erythema HPI: foot pain, severe HPI: red streaks, from a spot on the foot VS: temperature not taken Negative Responses Denies: HPI: foot injury, within past 2 days Denies: HPI: heel pain, moderate to severe Denies: HPI: heel pain, severe Denies: HPI: leg pain, localized to ankle Denies: HPI: skin lump, swollen, painful, over the foot Denies: HPI: toe pain, localized to toenail or periungual skin Denies: MEDS: chemotherapy Denies: MEDS: Coumadin, heparin, low molecular weight heparin, or other potent anticoagulant Denies: PMH: atrial fibrillation Denies: PMH: diabetes Denies: PMH: heart attack, within past 3 months Denies: PMH: HIV positive Denies: PMH: peripheral vascular disease Denies: PSH: organ transplant IMPORTANT: This note was created by [facility] Clinical Contact Center staff. Please do not alert the staff member by adding them as a signer for future communications. Alerts are not monitored by this user. /leticia/ AMY FLEMING, RN, MSN,RNC-TNP REGISTERED NURSE Signed: 10/05/2024 10:40 Receipt Acknowledged By: 10/05/2024 14:49 /ashley JOHN REGISTERED NURSE 10/06/2024 11:34 /leticia/ Taya Palomo RN Primary Care Staff Nurse 10/05/2024 ADDENDUM STATUS: COMPLETED Will seek higher level of care /ashley JOHN REGISTERED NURSE Signed: 10/05/2024 14:49 AMY FLEMING [facility]
--- OUTSIDE RECORDS SUMMARY | 2024-11-20 10:05 | XMS_ITS | Encounter Summary ---
Author Name [facility] [place] Organization [facility] [place] Address [address] [place] [address] Care Team Providers Care Manager Women Name Role Phone JAVI TYLER Primary Care [...] Travis's Name Patient's Relationship to Policy Travis [facility] [address] [facility] T CARE NON-B ILL 2024 [facility] [id number] [phone] JAVI MURGUIA PATIENT Selected Encounter This section includes the information on record at ME for the Encounter. Date/Time Encounter Type Encounter Description Reason Pro vider Source Aug 21, 2024 11:20 AM Outpatient Encounter PAIN CLINIC IHE Encounter [...] 20 appointments. The data comes from all ME treatment facilities. Appointment Date/Time Appointment Type Appointme nt Facility Name Sep 07, 2024 10:00 AM AMBULATORY - MEDICINE [facility] [place] [facility] Oct 09, 2024 09:30 AM AMBULATORY - MEDICINE [facility] [place] [facility] Oct 15, 2024 04:00 PM AMBULATORY - REHAB MEDICIN E [facility] [place] [facility] Oct 27, 2024 01:00 PM AMBULATORY - PSYCHIATRY [facility] [place] [facility] Oct 28, 2024 10:00 AM AMBULATORY - MEDICINE [facility] [place] [facility] Nov 17, 2024 02:45 PM AMBULATORY - MEDICINE [facility] [place] [facility] Nov 20, 2024 10:30 AM AMBULATORY - NONE [facility] [place] [facility] Nov 26, 2024 02:00 PM AMBULATORY - PSYCHIATRY [facility] [place] [facility] Dec 02, 2024 11:00 AM AMBULATORY - MEDICINE [facility] [place] [facility] Dec 03, 2024 02:00 PM AMBULATORY - PSYCHIATRY [facility] [place] [facility] Dec 10, 2024 02:00 PM AMBULATORY - PSYCHIATRY [facility] [place] [facility] Jan 04, 2025 11:00 AM AMBULATORY - MEDICINE [facility] [place] [facility] Jan 15, 2025 09:45 AM AMBULATORY - MEDICINE [facility] [place] [facility] Active, Pending, and Scheduled Orders This section includes a listing of several types of active, pending, and scheduled orders, including clinic medications orders, diagnostic test orders, procedure orders and consult orders; where the start date of the order is 45 days before the date of the Encounter or 45 days after the date of theEncounter. The data comes from all ME treatment facilities. Test Date/Time Test Type Test Details Facility Name Aug 20, 2024 12:15 PM Consult Order COMMUNITY CARE-PULMONARY Cons Restaurant Crew Member's Choice [facility] [place] [facility] Aug 20, 2024 12:15 PM Consult Order COMMUNITY CARE-COLONOSCOPY SURVEILLANCE Cons Restaurant Crew Member's Choice [facility] [place] [facility] Aug 20, 2024 12:15 PM Consult Order COMMUNITY CARE-RN BABY Cons Restaurant Crew Member's Choice [facility] [place] [facility] Aug 20, 2024 12:15 PM Consult Order COMMUNITY CARE-UROLOGY Cons Restaurant Crew Member's Choice [facility] [place] [facility] Social History: Smoking Status (Most current) and Tobacco Use (All prior to encounter date) This section includes the most current, and the historical, smoking and tobacco- related health factors from the ME facility where the Encounter took place. Current Smoking Status This section includes the most current smoking, or tobacco-related health factor, from the ME facility where the Encounter took place. Date/Time Current Smoking Status Comment Facil ity Aug 20, 2024 11:30 AM VA-TOBACCO USER EVERY DAY [facility] Tobacco Use History This section includes a history of the smoking, or tobacco-related health factors, that were collected on or before the date of the Encounter. The data comes from the ME facility where the Encounter took place. 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 [facility] [place] [facility] Aug 20, 2024 11:30 AM VA-TOBACCO USE MED NO [facility] [place] [facility] Aug 20, 2024 11:30 AM VA-TOBACCO USE WI 30 MIN OF WAKEUP [facility] [place] [facility] Aug 20, 2024 11:30 AM VA-TOBACCO USER EVERY DAY [facility] [place] [facility] Aug 15, 2023 04:34 PM VA-TOBACCO DOESNT USE WI 30 MIN WAKEUP [facility] [place] [facility] Aug 15, 2023 04:34 PM VA-TOBACCO USE > 1 5 LESS THAN 30 YEARS [facility] [place] [facility] Aug 15, 2023 04:34 PM VA-TOBACCO USE ADVICE [facility] [place] [facility] Aug 15, 2023 04:34 PM 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 Date/Time Encounter Note(s) Provider Source Aug 21, 2024 11:21 AM LETTERS: LOCAL TITLE: PATIENT LETTER (B) STANDARD TITLE: LETTERS DATE OF NOTE: AUG 21, 2024@11:21 ENTRY DATE: AUG 21, 2024@11:21:49 AUTHOR: BLANCO VARGAS EXP COSIGNER: URGENCY: STATUS: COMPLETED [facility] Toll Free Number [facility] scheduling can be reached at ext. [phone] [facility]- ext. [phone] [facility]- ext. [phone] [facility]- ext. [phone] AUG 21, 20[address] DAMON [address] [place] [id number] Dear JAVI DAMON Thank you for choosing the Department of [facility] Affairs ([place]) Medical [facility] as your primary choice for health care. As a partner in your health care, we are contacting you in writing since we have been unsuccessful in our attempts to reach you to date. We want to assure you we are doing everything possible to schedule Veterans for their VA medical care appointments. Our records indicate you are due for an appointment in PAIN CLINIC. If you would like to be seen, please contact ME Call Center at ext. [phone] to schedule an appointment. Thank you for your service to our nation, and we look forward to hearing from you soon. Sincerely, [facility] [address] [facility] [address] [place] [address] [place] [address] [facility] [address] [facility] [address] [place] [address] [place] [address] ext. [phone] [facility] [address] [address] [place] [address] ext. [phone] [facility] [address] [place] [address] ext. [phone] BLANCO VARGAS [facility] [place] [facility] Aug 21, 2024 11:20 AM ADMINISTRATIVE NOTE: LOCAL TITLE: ADMINISTRATIVE RECALL NOTE STANDARD TITLE: ADMINISTRATIVE NOTE DATE OF NOTE: AUG 21, 2024@11:20 ENTRY DATE: AUG 21, 2024@11:20:35 AUTHOR: BLANCO VARGAS COSIGNER: URGENCY: STATUS: COMPLETED RTC orders: Unable to contact patient: Attempts to contact: 1st attempt: Left voicemail 2nd attempt: Letter mailed Disposition on Aug 3rd attempt: 4th attempt: pid 09/01/2024 per provider's team msg, ok to offer ob 09/04/2024 1pm if still available. /leticia/ BLANCO VARGAS [employer]HE[employer] DENTIST Signed: 08/21/2024 11:21 BLANCO VARGAS [facility] [place]
--- OUTSIDE RECORDS SUMMARY | 2024-11-20 10:05 | XMS_ITS | Encounter Summary ---
Author Name [facility] [place] Organization [facility] [place] Address [address] [place] [address] Care Team Providers Care Drawbridge Tender Name Role Phone JAVI TYLER Primary Care [...] Name Patient's Relationship to Policy Travis [facility] 2017 [facility] NON-B ILL 2024 [facility] [id number] [phone] JAVI MURGUIA PATIENT Selected Encounter This section includes the information on record at [place] for the Encounter. Date/Time Encounter Type Encounter Description Reason Pro vider Source Sep 25, 2024 04:47 PM Outpatient Encounter TELEPHONE TRIAGE IHE Encounter Template Text not used by [place] Plan of Treatment: Future Appointments (+ 6 [...] - MEDICINE [facility] [place] [facility] Oct 15, 2024 04:00 PM AMBULATORY - REHAB MEDICIN E [facility] [place] [facility] Oct 27, 2024 01:00 PM AMBULATORY - PSYCHIATRY [facility] [place] [facility] Oct 28, 2024 10:00 AM AMBULATORY - MEDICINE [facility] [place] [facility] Nov 17, 2024 02:45 PM AMBULATORY - MEDICINE [facility] [place] [facility] Nov 20, 2024 10:30 AM AMBULATORY - NONE [facility] [place] [facility] Nov 26, 2024 02:00 PM AMBULATORY - PSYCHIATRY [facility] [place] [facility] Dec 02, 2024 11:00 AM AMBULATORY - MEDICINE [facility] [place] [facility] Dec 03, 2024 02:00 PM AMBULATORY - PSYCHIATRY [facility] [place] [facility] Dec 10, 2024 02:00 PM AMBULATORY - PSYCHIATRY [facility] [place] [facility] Jan 04, 2025 11:00 AM AMBULATORY - MEDICINE [place] [facility] [facility] Jan 15, 2025 09:45 AM AMBULATORY - MEDICINE [place] [facility] [facility] Active, Pending, and Scheduled Orders This section includes a listing of several types of active, pending, and scheduled orders, including clinic medications orders, diagnostic test orders, procedure orders and consult orders; where the start date of the order is 45 days before the date of the Encounter or 45 days after the date of theEncounter. The data comes from all [place] treatment facilities. Test Date/Time Test Type Test Details Facility Name Aug 20, 2024 12:15 PM Consult Order COMMUNITY CARE-PULMONARY Cons Quality Control Scientist's Choice [facility] [place] [facility] Aug 20, 2024 12:15 PM Consult Order COMMUNITY CARE-COLONOSCOPY SURVEILLANCE Cons Quality Control Scientist's Choice [facility] [place] [facility] Aug 20, 2024 12:15 PM Consult Order COMMUNITY CARE-THIRD HAND Cons Quality Control Scientist's Choice [facility] [place] [facility] Aug 20, 2024 12:15 PM Consult Order COMMUNITY CARE-UROLOGY Cons Quality Control Scientist's [facility] [place] [facility] Oct 27, 2024 03:39 PM Consult Order [facility] Cons Quality Control Scientist's Choice [facility] Lab Results: +/- 30 days [...] Range Comment Oct 09, 2024 11:03 AM [facility] METHADONE SCREEN Specimen Type: URINE Comment: YAMEL test are qualitative, any L or H flags only indicate a VA alert was sent. Ordering Provider: PHILIPPE WALLACE Report Released Date/Time: Oct 09, 2024 10:18 AM Reporting Lab: [address] [address] Performing Lab: [facility] [address] [facility] [address] METHADONE SCREEN None detected(Nega tive) L Negative Oct 09, 2024 11:03 AM [facility] ALCOHOL, ETHYL URINE PANEL Specimen Type: [...] Oct 09, 2024 10:18 AM Reporting Lab: [facility] [address] [facility] [address] Performing Lab: [address] [address] ALCOHOL, ETHYL URINE NONE-DETECTED mg/dL NONE-DETEC PRANAY, cutoff = 10 mg/dL PH, YAMEL 5.7 [pH] 4-10 CREATININE, YAMEL 153.27 mg/dL >20 SP.GRAVITY, YAMEL 1.018 1.00 3-1.02 0 Oct 09, 2024 11:03 AM [facility] AMPHETAMINES SCREEN PANEL Specimen Type: URINE [...] Oct 09, 2024 10:18 AM Reporting Lab: [address] [address] Performing Lab: [address] [address] AMPHETAMINES SCREEN NONE-DETECTED None-Detec pranay, Cutoff = 1000 ng/mL PH, YAMEL 5.7 [pH] 4-10 CREATININE, YAMEL 153.27 mg/dL >20 SP.GRAVITY, YAMEL 1.018 1.00 3-1.02 0 Oct 09, 2024 11:03 AM [facility] FENTANYL SCREEN PANEL Specimen Type: URINE [...] NOT SENT BY LAB. Ordering Provider: PHILIPPE WALLCAE Report Released Date/Time: Oct 09, 2024 10:18 AM Reporting Lab: [address] [address] Performing Lab: [address] [address] FENTANYL SCREEN NONE-DETECTE D ng/mL Negative: Cutoff = 1.00 ng/mL PH, YAMEL 5.7 [pH] 4-10 CREATININE, YAMEL 155.37 mg/dL >20 SP.GRAVITY, YAMEL 1.018 1.00 3-1.02 0 Oct 09, 2024 11:03 AM [facility] BENZODIAZEPINES SCREEN PANEL Specimen Type: URINE [...] Oct 09, 2024 10:18 AM Reporting Lab: [address] [address] Performing Lab: [address] [address] BENZODIAZEPINES SCREEN POSITIVE HH None-Detec pranay, Cutoff = 200 ng/mL PH, YAMEL 5.7 [pH] 4-10 CREATININE, YAMEL 153.27 mg/dL >20 SP.GRAVITY, YAMEL 1.018 1.00 3-1.02 0 Oct 09, 2024 11:03 AM [facility] BUPRENORPHINE SCREEN PANEL Specimen Type: URINE [...] Oct 09, 2024 10:18 AM Reporting Lab: [address] [address] Performing Lab: [facility] [address] [address] BUPRENORPHINE (URINE) NONE-DETECTED None Detected, Cutoff = 10.0 ng/mL PH, YAMEL 5.7 [pH] 4-10 CREATININE, YAMEL 153.27 mg/dL >20 SP.GRAVITY, YAMEL 1.018 1.00 3-1.02 0 Oct 09, 2024 11:03 AM [facility] CANNABINOIDS SCREEN PANEL Specimen Type: URINE [...] Oct 09, 2024 10:18 AM Reporting Lab: [address] [address] Performing Lab: [place] [address] CANNABINOIDS SCREEN POSITIVE HH None-Detec pranay,Cutoff = 50 ng/mL PH, YAMEL 5.7 [pH] 4-10 CREATININE, YAMEL 153.27 mg/dL >20 SP.GRAVITY, YAMEL 1.018 1.00 3-1.02 0 Oct 09, 2024 11:03 AM [facility] COCAINE SCREEN PANEL Specimen Type: URINE [...] Oct 09, 2024 10:18 AM Reporting Lab: [place] [id number] Performing Lab: [address] [address] COCAINE SCREEN NONE-DETECTED N one-Detec pranay,Cutoff = 300 ng/mL PH, YAMEL 5.7 [pH] 4-10 CREATININE, YAMEL 153.27 mg/dL >20 SP.GRAVITY, YAMEL 1.018 1.00 3-1.02 0 Oct 09, 2024 11:03 AM [facility] OPIATES SCREEN PANEL Specimen Type: URINE [...] Oct 09, 2024 10:18 AM Reporting Lab: [address] [address] Performing Lab: [address] [address] OPIATES SCREEN NONE-DETECTED N one-Detec pranay, Cutoff = 300 ng/mL PH, YAMEL 5.7 [pH] 4-10 CREATININE, YAMEL 153.27 mg/dL >20 SP.GRAVITY, YAMEL 1.018 1.00 3-1.02 0 Oct 09, 2024 11:03 AM [facility] OXYCODONE SCREEN PANEL Specimen Type: URINE [...] Oct 09, 2024 10:18 AM Reporting Lab: [address] [place] [address] Performing Lab: [place] [facility] [place] [facility] [address] [facility] [address] OXYCODONE SCREEN POSITIVE HH Non e-Detec pranay, [...] 2024 11:30 AM VA-TOBACCO USER EVERY [facility] Tobacco Use History This section includes a history of the smoking, or tobacco-related health factors, that were collected on or before the date of the Encounter. The data comes from the [place] facility where the Encounter took place. Date/Time Smoking Status/Tobacco Use Comment F acility Aug 20, 2024 11:30 AM VA-TOBACCO USE ADVICE [place] [facility] [place] [facility] Aug 20, 2024 11:30 AM VA-TOBACCO USE WARE DRESSER NO [place] [facility] [place] [facility] Aug 20, 2024 11:30 AM VA-TOBACCO USE MED NO [place] [facility] [place] [facility] Aug 20, 2024 11:30 AM VA-TOBACCO USE WI 30 MIN OF WAKEUP [place] [facility] [place] [facility] Aug 20, 2024 11:30 AM VA-TOBACCO USER EVERY DAY [place] [facility] [place] [facility] Aug 15, 2023 04:34 PM VA-TOBACCO DOESNT USE WI 30 MIN WAKEUP [place] [facility] [place] [facility] Aug 15, 2023 04:34 PM VA-TOBACCO USE > 1 5 LESS THAN 30 YEARS [place] [facility] [place] [facility] Aug 15, 2023 04:34 PM VA-TOBACCO USE ADVICE [place] [facility] [place] [facility] Aug 15, 2023 04:34 PM VA-TOBACCO USE WARE DRESSER NO [facility] [place] [facility] Aug 15, 2023 04:34 PM VA-TOBACCO USE MED NO [place] [facility] [place] [facility] Aug 15, 2023 04:34 PM [facility]TOBACCO USER EVERY [facility] Encounter Notes: All associated encounter notes This section contains the clinical notes associated to the Encounter. Date/Time Encounter Note(s) Provider Source Sep 25, 2024 04:47 PM RN PROGRESS NOTE: LOCAL TITLE: CCC: CLINICAL TRIAGE STANDARD TITLE: RN PROGRESS NOTE DATE OF NOTE: SEP 25, 2024@16:47:29 ENTRY DATE: SEP 25, 2024@16:47:30 AUTHOR: ROSA BARRAGAN COSIGNER: URGENCY: STATUS: COMPLETED Patient Demographics Patient Name: JAVI DAMON Patient Primary Address: [address] [place] [address] Patient Primary Phone: [phone] Patient : 1970 Patient Age: 54 Caller/Recipient Relation to Patient: Self Emergency Contact: ELYSIA GODFREY Triage Summary Conducted triage/discussed symptoms Pain Score: 7 (Moderate to Severe Pain) Utilized the Triage Tool: Yes Chief Complaint: Foot Swelling (both feet) System WHEN: Within 8 Hours Nurse's Recommendation / WHEN: Now System WHERE: Urgent care center Nurse's Recommendation / WHERE: ED Other Patient Disposition Patient/Caregiver agrees to plan of care: Yes Nursing Plan and Disposition Referred patient to higher level of care Instructed to go to Emergency Room (ER) Other course(s) of action Generated msg to PACT/Provider Nurse Summary Nurse Summary: Vet calling because he wants to present to NON VA ED for assistance with ETOH . Reports approx. 9 days ago his entire abdomen and LE have swelled up. Vet reports severe pain , difficulty walking, pain rated 7/10. Reports LE are reddened and hot to touch. Vet also reports blood loss in urine. Reports he has been having n/v/d. Denies fever, reports skin to LE intact and denies bleeding or drainage for LE. Advised to go to ED NOW. CC notifcation number and process explained. Vet reqeusting assistance from PACT to access VA resources for his ETOH. Advised note placed for PACT f/u. Clinical Contact Center Codes Clinic/Location: V1 [facility] PHONE [facility] RN Decision Support System Output: Triage Complete Triage Date: 09/25/2024, 04:38 PM Triage Note: Decision Support Tool Used: [facility] Phone Triage 25 Sep 2024 21:36:31 +0000 [facility] Demographics 54 y/o Male Results CC: Foot Swelling (both feet) Software suggested: Within 8 Hours Software suggested follow-up location: Urgent care center, consider virtual care Values and Measures Duration of CC: 9 Days Positive Responses HPI: foot erythema, bilateral, worsening HPI: red streaks, from a spot on the feet or ankles HPI: vomiting VS: temperature not taken Negative Responses Denies: HPI: skin lump, swollen, painful, over the feet IMPORTANT: This note was created by [facility] Clinical Contact Center staff. Please do not alert the staff member by adding them as a signer for future communications. Alerts are not monitored by this user. /leticia/ Rosa Barrgaan RN VIS[facility] 2 [facility] RN Signed: 09/25/2024 16:47 Receipt Acknowledged By: 09/29/2024 08:37 /es/ RICKY JOHN REGISTERED NURSE 09/28/2024 09:12 /es/ Jammie Villanueva PsyD PTSD/LISSET[facility] SPECIALIST 09/28/2024 15:20 /es/ Taya Palomo RN Primary Care Staff Nurse ROSA BARRAGAN CNTL [facility]
--- OUTSIDE RECORDS SUMMARY | 2024-11-20 10:05 | XMS_ITS ---
Author Name [facility] [place] [facility] [place] Address [address] [place] [address] Care Team Providers Care Separator Operator Name Role Phone JAVI TYLER Primary [...] Travis's Name Patient's Relationship to Policy Travis [address] T CARE NON-B ILL 2024 [facility] [id number] JAVI MURGUIA PATIENT Selected Encounter This section includes the information on record at [place] for the Encounter. Date/Time Encounter Type Encounter Description Reason Provider Source Aug 26, 2024 11:45 AM [facility] IVNTJ INDIV TELEPHONE/MEDICIN E ICD-10-CM F10.20 Alcohol dependence, uncomplicated LISA SCHERER E Encounter Template Text not used by [place] Assessments - Encounter Diagnoses This section includes the primary and secondary diagnoses documented for the Encounter. Date/Time Primary/Secondary Diagnosis Diagnosis Name Provider Source Aug 26, 2024 11:45 AM PRIMARY Alcohol dependence, uncomplicated LISA SCHERER [place] [facility] [place] [facility] Aug 26, 2024 11:45 AM SECONDARY Post-traumatic stress disorder, unspecified LISA SCHERER [facility] [facility] Plan of Treatment: Future Appointments (+ 6 months) and Future Tests (+/- 45 days) The Plan of Treatment section includes future care activities for the patient from all [place] [facility]. This section includes future appointments and [...] C [facility] [place] [facility] Jan 15, 2025 09:45 AM AMBULATORY - MEDICINE [place] [facility] [place] [facility] [...] of theEncounter. The data comes from all [place] treatment facilities. Test Date/Time Test Type Test Details Facility Name Aug 20, 2024 12:15 PM Consult Order [facility]-PULMONARY Cons Rpg Programmer's Choice [place] [facility] [place] [facility] Aug 20, 2024 12:15 PM Consult Order [facility]-COLONOSCOPY SURVEILLANCE Cons Rpg Programmer's Choice [place] [facility] [place] [facility] Aug 20, 2024 12:15 PM Consult Order [facility]-PETS AND PET SUPPLIES SALESPERSON Cons Rpg Programmer's Choice [place] [facility] [place] [facility] Aug 20, 2024 12:15 PM Consult Order [facility]-UROLOGY Cons Rpg Programmer's Choice [facility] [place] [facility] Social History: Smoking Status (Most current) and Tobacco Use (All prior to encounter date) This section includes the most current, and the historical, smoking and tobacco- related health factors from the [place] facility where the Encounter took place. Current Smoking Status This section includes the most current smoking, or tobacco-related health factor, from the [place] facility where the Encounter took place. Date/Time Current Smoking Status Comment Facil ity Aug 20, 2024 11:30 AM [place]-TOBACCO USER EVERY DAY [facility] Tobacco Use History This section includes a history of the smoking, or tobacco-related health factors, that were collected on or before the date of the Encounter. The data comes from the [place] facility where the Encounter took place. Date/Time Smoking Status/Tobacco Use Comment F acility Aug 20, 2024 11:30 AM VA-TOBACCO USE ADVICE [place] [facility] [place] [facility] Aug 20, 2024 11:30 AM VA-TOBACCO USE DIRECTOR SURFACE TRANSPORTATION NO [place] [facility] [facility] Aug 20, 2024 11:30 AM VA-TOBACCO USE MED NO [place] [facility] [place] [facility] Aug 20, 2024 11:30 AM VA-TOBACCO USE WI 30 MIN OF WAKEUP [place] [facility] [place] [facility] Aug 20, 2024 11:30 AM VA-TOBACCO USER EVERY DAY [place] [facility] [place] [facility] Aug 15, 2023 04:34 PM VA-TOBACCO DOESNT USE WI 30 MIN WAKEUP [place] [facility] [place] [facility] Aug 15, 2023 04:34 PM VA-TOBACCO USE > 1 5 LESS THAN 30 YEARS [place] [facility] [place] [facility] Aug 15, 2023 04:34 PM VA-TOBACCO USE ADVICE [place] [facility] [place] [facility] Aug 15, 2023 04:34 PM VA-TOBACCO USE DIRECTOR SURFACE TRANSPORTATION NO [place] [facility] [place] [facility] Aug 15, 2023 04:34 PM VA-TOBACCO USE MED NO [place] [facility] [place] [facility] Aug 15, 2023 04:34 PM VA-TOBACCO USER EVERY DAY [place] [facility] [place] [facility] Encounter Notes: All associated encounter notes This section contains the clinical notes associated to the Encounter. 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 [place] reports that he actually retired 05/15/24, and has been receiving $2300 a month from [employer], which has been difficult to make ends meet, and he has been receiving help from his family and fianc??. [place] has stable housing and enough money for food and other basic needs; he reports that he applied for 115 and some other government assistance, but was denied due to being over income. Director Medicaid contacted colleague who was able to review 's VBA record and clarify that he does have a VA claim pending, all C&Ps complete and service records obtained, and it should hopefully be decided shortly, with receiving back pay until 06/11/24 upon rating completion. [place] was relieved to learn this, as he was unaware that a claim was pending. Director Medicaid inquired about 's mental health and current level of alcohol use; reports that he is doing fine mentally, denied any SI/HI, says he is drinking a shot here and there during the day to not get sick, but is not drinking until intoxication. [place] reports that he started supplementing with marijuana as well, as he was taken off of some of his pain meds and says the marijuana has been helping him not rely on alcohol for pain management. Director Medicaid spoke about the dangers of polysubstance abuse, and assured he is always at home, limits use, and does not drive when using substances. [place] does say he would like to go into detox at some point soon, but is not ready yet; senior underwriter discussed steps for when he is ready. Martine is back together with his fianc??, and she is living with him half the week, which he is happy about. [place] reports that he is happy with the level of care he has at the [place] at this time, and declined any other referrals, including mental health. [place] with no unresolved questions or concerns at end of call, agreed to contact senior underwriter if he requires assistance or has any questions or concerns. /leticia/ SEVEN [employer] LICENSED CLINICAL COMMUNITY OUTREACH ADVOCATE Signed: 08/26/2024 11:56 JUAN PABLO SCHERER [place] [facility]
--- OUTSIDE RECORDS SUMMARY | 2024-11-20 10:05 | XMS_ITS | Encounter Summary ---
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 Date/Time Encounter Type Encounter Description Reason Pro vider Source Sep 26, 2024 12:07 PM Outpatient Encounter TELEPHONE TRIAGE IHE Encounter Template Text not used by [place] Plan of Treatment: Future Appointments (+ 6 [...] - MEDICINE [place] [facility] [place] [facility] Oct 15, 2024 04:00 PM AMBULATORY - REHAB MEDICIN E [place] [facility] [place] [facility] Oct 27, 2024 01:00 PM AMBULATORY - PSYCHIATRY [place] [facility] [place] [facility] Oct 28, 2024 10:00 AM AMBULATORY - MEDICINE [place] [facility] [place] [facility] Nov 17, 2024 02:45 PM AMBULATORY - MEDICINE [place] [facility] [place] [facility] Nov 20, 2024 10:30 AM AMBULATORY - NONE [place] [facility] [place] [facility] Nov 26, 2024 02:00 PM AMBULATORY - PSYCHIATRY [place] [facility] [place] [facility] Dec 02, 2024 11:00 AM AMBULATORY - MEDICINE [place] [facility] [place] [facility] Dec 03, 2024 02:00 PM AMBULATORY - PSYCHIATRY [place] [facility] [place] [facility] Dec 10, 2024 02:00 PM AMBULATORY - PSYCHIATRY [place] [facility] [place] [facility] Jan 04, 2025 11:00 AM AMBULATORY - MEDICINE [place] [facility] [place] [facility] Jan 15, 2025 09:45 AM AMBULATORY - MEDICINE [place] C [place] [facility] Active, Pending, and Scheduled Orders This section includes a listing of several types of active, pending, and scheduled orders, including clinic medications orders, diagnostic test orders, procedure orders and consult orders; where the start date of the order is 45 days before the date of the Encounter or 45 days after the date of theEncounter. The data comes from all [place] treatment facilities. Test Date/Time Test Type Test Details Facility Name Aug 20, 2024 12:15 PM Consult Order [facility]-PULMONARY Cons [employer] Pickler's Choice [place] [facility] [place] [facility] Aug 20, 2024 12:15 PM Consult Order COMMUNITY CARE-COLONOSCOPY SURVEILLANCE Cons [employer] Pickler's Choice [place] [facility] [place] [facility] Aug 20, 2024 12:15 PM Consult Order COMMUNITY CARE-CHIEF TECHNICAL OFFICER Cons [employer] Pickler[employer] Choice [place] [facility] [place] [facility] Aug 20, 2024 12:15 PM Consult Order COMMUNITY CARE-UROLOGY Cons [employer] Pickler's Choice [facility] [place] [facility] Oct 27, 2024 03:39 PM Consult Order [facility] Cons [employer] Pickler's Choice [facility] Lab Results: +/- 30 days of the [...] Range Comment Oct 09, 2024 11:03 AM [facility] METHADONE SCREEN Specimen Type: URINE Comment: YAMEL test are qualitative, any L or H flags only indicate a VA alert was sent. Ordering Provider: PHILIPPE WALLACE Report Released Date/Time: Oct 09, 2024 10:18 AM Reporting Lab: [facility] [address] [address] Performing Lab: [facility] [address] [facility] [address] METHADONE SCREEN None detected(Nega tive) L Negative Oct 09, 2024 11:03 AM [facility] AMPHETAMINES SCREEN PANEL Specimen Type: URINE [...] Oct 09, 2024 10:18 AM Reporting Lab: [facility] [address] [facility] [facility] [address] Performing Lab: [address] [address] AMPHETAMINES SCREEN NONE-DETECTED None-Detec pranay, Cutoff = 1000 ng/mL PH, YAMEL 5.7 [pH] 4-10 CREATININE, YAMEL 153.27 mg/dL >20 SP.GRAVITY, YAMEL 1.018 1.00 3-1.02 0 Oct 09, 2024 11:03 AM [facility] ALCOHOL, ETHYL URINE PANEL Specimen [...] Oct 09, 2024 10:18 AM Reporting Lab: [address] [address] Performing Lab: [address] [address] ALCOHOL, ETHYL URINE NONE-DETECTED mg/dL NONE-DETEC PRANAY, cutoff = 10 mg/dL PH, YAMEL 5.7 [pH] 4-10 CREATININE, YAMEL 153.27 mg/dL >20 SP.GRAVITY, YAMEL 1.018 1.00 3-1.02 0 Oct 09, 2024 11:03 AM [facility] FENTANYL SCREEN PANEL Specimen Type: [...] Oct 09, 2024 10:18 AM Reporting Lab: [address] [address] Performing Lab: [address] [address] FENTANYL SCREEN NONE-DETECTE D ng/mL Negative: Cutoff = 1.00 ng/mL PH, YAMEL 5.7 [pH] 4-10 CREATININE, YAMEL 155.37 mg/dL >20 SP.GRAVITY, YAMEL 1.018 1.00 3-1.02 0 Oct 09, 2024 11:03 AM [facility] BENZODIAZEPINES SCREEN PANEL Specimen Type: [...] Oct 09, 2024 10:18 AM Reporting Lab: [address] [address] Performing Lab: [address] [address] BENZODIAZEPINES SCREEN POSITIVE HH None-Detec pranay, Cutoff = 200 ng/mL PH, YAMEL 5.7 [pH] 4-10 CREATININE, YAMEL 153.27 mg/dL >20 SP.GRAVITY, YAMEL 1.018 1.00 3-1.02 0 Oct 09, 2024 11:03 AM [facility] BUPRENORPHINE SCREEN PANEL Specimen Type: [...] Oct 09, 2024 10:18 AM Reporting Lab: [address] [address] Performing Lab: [place] [facility] [address] [address] BUPRENORPHINE (URINE) NONE-DETECTED None Detected, Cutoff = 10.0 ng/mL PH, YAMEL 5.7 [pH] 4-10 CREATININE, YAMEL 153.27 mg/dL >20 SP.GRAVITY, YAMEL 1.018 1.00 3-1.02 0 Oct 09, 2024 11:03 AM [facility] CANNABINOIDS SCREEN PANEL Specimen Type: [...] Oct 09, 2024 10:18 AM Reporting Lab: [address] [address] Performing Lab: [place] [address] CANNABINOIDS SCREEN POSITIVE HH None-Detec pranay,Cutoff = 50 ng/mL PH, YAMEL 5.7 [pH] 4-10 CREATININE, YAMEL 153.27 mg/dL >20 SP.GRAVITY, YAMEL 1.018 1.00 3-1.02 0 Oct 09, 2024 11:03 AM [facility] COCAINE SCREEN PANEL Specimen Type: [...] Oct 09, 2024 10:18 AM Reporting Lab: [place] [id number] Performing Lab: [address] [address] COCAINE SCREEN NONE-DETECTED N one-Detec pranay,Cutoff = 300 ng/mL PH, YAMEL 5.7 [pH] 4-10 CREATININE, YAMEL 153.27 mg/dL >20 SP.GRAVITY, YAMEL 1.018 1.00 3-1.02 0 Oct 09, 2024 11:03 AM [facility] OPIATES SCREEN PANEL Specimen Type: [...] Oct 09, 2024 10:18 AM Reporting Lab: [address] [address] Performing Lab: [address] [address] OPIATES SCREEN NONE-DETECTED N one-Detec pranay, Cutoff = 300 ng/mL PH, YAMEL 5.7 [pH] 4-10 CREATININE, YAMEL 153.27 mg/dL >20 SP.GRAVITY, YAMEL 1.018 1.00 3-1.02 0 Oct 09, 2024 11:03 AM [facility] OXYCODONE SCREEN PANEL Specimen Type: [...] Oct 09, 2024 10:18 AM Reporting Lab: [address] [place] [address] Performing Lab: [place] [facility] [address] [facility] [address] OXYCODONE SCREEN POSITIVE HH Non e-Detec pranay, [...] AM VA-TOBACCO USER EVERY DAY [facility] Tobacco Use History This section includes a history of the smoking, or tobacco-related health factors, that were collected on or before the date of the Encounter. The data comes from the [place] facility where the Encounter took place. Date/Time Smoking Status/Tobacco Use Comment F acility Aug 20, 2024 11:30 AM VA-TOBACCO USE ADVICE [place] [facility] [facility] Aug 20, 2024 11:30 AM VA-TOBACCO USE SEPARATIONS SCIENTIST NO [place] [facility] [facility] Aug 20, 2024 11:30 AM VA-TOBACCO USE MED NO [place] [facility] [facility] Aug 20, 2024 11:30 AM VA-TOBACCO USE WI 30 MIN OF WAKEUP [place] [facility] [facility] Aug 20, 2024 11:30 AM VA-TOBACCO USER EVERY DAY [place] [facility] [place] [facility] Aug 15, 2023 04:34 PM VA-TOBACCO DOESNT USE WI 30 MIN WAKEUP [place] [facility] [place] [facility] Aug 15, 2023 04:34 PM VA-TOBACCO USE > 1 5 LESS THAN 30 YEARS [place] [facility] [place] [facility] Aug 15, 2023 04:34 PM VA-TOBACCO USE ADVICE [place] [facility] Aug 15, 2023 04:34 PM VA-TOBACCO USE SEPARATIONS SCIENTIST NO [place] [facility] [place] [facility] Aug 15, 2023 04:34 PM VA-TOBACCO USE MED NO [place] [facility] [place] [facility] Aug 15, 2023 04:34 PM VA-TOBACCO USER EVERY DAY [place] [facility] Encounter Notes: All associated encounter notes This section contains the clinical notes associated to the Encounter. Date/Time Encounter Note(s) Provider Source Sep 26, 2024 12:07 PM RN PROGRESS NOTE: LOCAL TITLE: [facility]: CLINICAL TRIAGE STANDARD TITLE: RN PROGRESS NOTE DATE OF NOTE: SEP 26, 2024@12:07:52 ENTRY DATE: SEP 26, 2024@12:07:52 AUTHOR: ODIN EVANS COSIGNER: URGENCY: STATUS: COMPLETED Patient Demographics Patient Name: JAVI DAMON Patient Primary Address: [address] [place] [id number] Patient Primary Phone: [phone] Patient : 1970 Patient Age: 54 Caller/Recipient Relation to Patient: Other If Other Describe Relation to Patient: girlfriend Caller Name: Elysia Emergency Contact: ELYSIA GODFREY Nursing Plan and Disposition Other course(s) of action Alternative course of action Alternative courses of action: Information provided Clinical Contact Center Codes Clinic/Location: V1 CWM PHONE CCC RN Notes Notes & Information: Received call from dora Dick who informs of recent separation from vet said she is calling because she is concerned if he is well said Vet is no danger, asked if vet had reached out to the [facility]; Informed caller that he has but no further information could be provided caller in agreement IMPORTANT: This note was created by [facility] Clinical Contact Center staff. Please do not alert the staff member by adding them as a signer for future communications. Alerts are not monitored by this user. /leticia/ CM EVANS RN VISN 2 [facility] EGISTERED NURSE Signed: 09/26/2024 12:07 ODIN EVANS [place] [facility]
--- OUTSIDE RECORDS SUMMARY | 2024-11-20 10:05 | XMS_ITS | Encounter Summary ---
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 Date/Time Encounter Type Encounter Description Reason Pro vider Source Apr 14, 2024 12:00 AM Outpatient Encounter EVENT (HISTORICAL) [...] 20 appointments. The data comes from all [facility] facilities. Appointment Date/Time Appointment Type Appointme nt Facility Name May 25, 2024 02:00 PM AMBULATORY - MEDICINE [facility] [place] [facility] Jul 16, 2024 09:00 AM AMBULATORY - MEDICINE [place] C [place] [facility] Jul 20, 2024 11:30 AM AMBULATORY - MEDICINE [facility] [place] [facility] Aug 20, 2024 11:30 AM AMBULATORY - MEDICINE [facility] [place] [facility] Sep 07, 2024 10:00 AM AMBULATORY - MEDICINE [facility] [place] [facility] Oct 09, 2024 09:30 AM AMBULATORY - MEDICINE [facility] Lab Results: +/- 30 days of the encounter This section includes the Chemistry and Hematology Lab Results on record with [place] for the patient. Radiology Reports and Pathology Reports are provided separately, in subsequent sections. Lab Results This section contains the Chemistry/Hematology Results that were resulted 30 days before or 30 daysafter the date of the Encounter. Date/Time Source Result Type Result - Unit Interpretation Reference Range Comment April 10, 2024 12:37 PM [facility] DRUGS OF ABUSE Specimen Type: URINE [...] April 10, 2024 12:13 PM Reporting Lab: [address] [address] Performing Lab: [address] [address] AMPHETAMINES SCREEN NONE-DETECTED None-Detec pranay, Cutoff = [...] and tobacco- related health factors from the [place] facility where the Encounter took place. Current Smoking Status This section includes the most current smoking, or tobacco-related health factor, from the [place] facility where the Encounter took place. Date/Time Current Smoking Status Comment Facil ity Aug 15, 2023 04:34 PM VA-TOBACCO USER EVERY DAY [facility] Tobacco Use History This section includes a history of the smoking, or tobacco-related health factors, that were collected on or before the date of the Encounter. The data comes from the [place] facility where the Encounter took place. Date/Time Smoking Status/Tobacco Use Comment F acility Aug 15, 2023 04:34 PM VA-TOBACCO USE > 1 5 LESS THAN 30 YEARS [place] [facility] [place] [facility] Aug 15, 2023 04:34 PM VA-TOBACCO USE ADVICE [place] [facility] Aug 15, 2023 04:34 PM VA-TOBACCO USE PHARMACY CUSTOMER CARE SPECIALIST NO [place] [facility] [place] [facility] Aug 15, 2023 04:34 PM VA-TOBACCO USE MED NO [place] [facility] [place] [facility] Aug 15, 2023 04:34 PM VA-TOBACCO USER EVERY DAY [facility] Encounter Notes: All associated encounter notes This section contains the clinical notes associated to the Encounter. Date/Time Encounter Note(s) Provider Source Apr 14, 2024 12:00 AM NONVA NOTE: LOCAL TITLE: NON-VA OUTPATIENT NOTES STANDARD TITLE: NONVA NOTE DATE OF NOTE: APR 14, 2024 ENTRY DATE: SEP 17, 2024@12:11:59 AUTHOR: REY GILBERT EXP COSIGNER: URGENCY: STATUS: COMPLETED VistA Imaging - Scanned Document SCANNED DOCUMENT SIGNATURE NOT REQUIRED Electronically Filed: 09/17/2024 by: REY JUAREZ [place] [facility]
--- OUTSIDE RECORDS SUMMARY | 2024-11-20 10:05 | XMS_ITS ---
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 Date/Time Encounter Type Encounter Description Reason Pro vider Source Sep 28, 2024 04:45 PM Outpatient Encounter COMMUNITY CARE CONSULT IHE Encounter Template Text not used by [...] - MEDICINE [facility] [place] [facility] Oct 15, 2024 04:00 PM AMBULATORY - REHAB MEDICIN E [facility] [place] [facility] Oct 27, 2024 01:00 PM AMBULATORY - PSYCHIATRY [facility] [place] [facility] Oct 28, 2024 10:00 AM AMBULATORY - MEDICINE [facility] [place] [facility] Nov 17, 2024 02:45 PM AMBULATORY - MEDICINE [facility] [place] [facility] Nov 20, 2024 10:30 AM AMBULATORY - NONE [facility] [place] [facility] Nov 26, 2024 02:00 PM AMBULATORY - PSYCHIATRY [facility] [place] [facility] Dec 02, 2024 11:00 AM AMBULATORY - MEDICINE [facility] [place] [facility] Dec 03, 2024 02:00 PM AMBULATORY - PSYCHIATRY [facility] [place] [facility] Dec 10, 2024 02:00 PM AMBULATORY - PSYCHIATRY [facility] [place] [facility] Jan 04, 2025 11:00 AM AMBULATORY - MEDICINE [facility] [place] [facility] Jan 15, 2025 09:45 AM AMBULATORY - MEDICINE [place] [facility] [place] [facility] Active, Pending, and Scheduled Orders This section includes a listing of several types of active, pending, and scheduled orders, including clinic medications orders, diagnostic test orders, procedure orders and consult orders; where the start date of the order is 45 days before the date of the Encounter or 45 days after the date of theEncounter. The data comes from all [place] treatment facilities. Test Date/Time Test Type Test Details Facility Name Aug 20, 2024 12:15 PM Consult Order COMMUNITY CARE-PULMONARY Cons Custom Garment Designer's Choice [facility] [place] [facility] Aug 20, 2024 12:15 PM Consult Order COMMUNITY CARE-COLONOSCOPY SURVEILLANCE Cons Custom Garment Designer's Choice [facility] [place] [facility] Aug 20, 2024 12:15 PM Consult Order COMMUNITY CARE-PROGRAM OR PROJECT ADMINISTRATOR Cons Custom Garment Designer's Choice [facility] [place] [facility] Aug 20, 2024 12:15 PM Consult Order COMMUNITY CARE-UROLOGY Cons Custom [facility]ment [facility] Oct 27, 2024 03:39 PM Consult Order [facility] Cons Custom Garment [facility] Lab Results: +/- 30 days of the [...] Range Comment Oct 09, 2024 11:03 AM [facility] METHADONE SCREEN Specimen Type: URINE Comment: YAMEL test are qualitative, any L or H flags only indicate a VA alert was sent. Ordering Provider: PHILIPPE WALLACE Report Released Date/Time: Oct 09, 2024 10:18 AM Reporting Lab: [facility] [address] [facility] [address] Performing Lab: [facility] [address] [facility] [address] METHADONE SCREEN None detected(Nega tive) L Negative Oct 09, 2024 11:03 AM [facility] AMPHETAMINES SCREEN PANEL Specimen Type: URINE [...] Oct 09, 2024 10:18 AM Reporting Lab: [facility] [address] [facility] [address] Performing Lab: [address] [address] AMPHETAMINES SCREEN NONE-DETECTED None-Detec pranay, Cutoff = 1000 ng/mL PH, YAMEL 5.7 [pH] 4-10 CREATININE, YAMEL 153.27 mg/dL >20 SP.GRAVITY, YAMEL 1.018 1.00 3-1.02 0 Oct 09, 2024 11:03 AM [facility] ALCOHOL, ETHYL URINE PANEL Specimen Type: [...] Oct 09, 2024 10:18 AM Reporting Lab: [address] [address] Performing Lab: [address] [address] ALCOHOL, ETHYL URINE NONE-DETECTED mg/dL NONE-DETEC PRANAY, cutoff = 10 mg/dL PH, YAMEL 5.7 [pH] 4-10 CREATININE, YAMEL 153.27 mg/dL >20 SP.GRAVITY, YAMEL 1.018 1.00 3-1.02 0 Oct 09, 2024 11:03 AM [facility] FENTANYL SCREEN PANEL Specimen Type: URINE [...] Oct 09, 2024 10:18 AM Reporting Lab: [address] [address] Performing Lab: [address] [address] FENTANYL SCREEN NONE-DETECTE D ng/mL Negative: Cutoff = 1.00 ng/mL PH, YAMEL 5.7 [pH] 4-10 CREATININE, YAMEL 155.37 mg/dL >20 SP.GRAVITY, YAMEL 1.018 1.00 3-1.02 0 Oct 09, 2024 11:03 AM [facility] BENZODIAZEPINES SCREEN PANEL Specimen Type: URINE [...] Oct 09, 2024 10:18 AM Reporting Lab: [address] [address] Performing Lab: [address] [address] BENZODIAZEPINES SCREEN POSITIVE HH None-Detec pranay, Cutoff = 200 ng/mL PH, YAMEL 5.7 [pH] 4-10 CREATININE, YAMEL 153.27 mg/dL >20 SP.GRAVITY, YAMEL 1.018 1.00 3-1.02 0 Oct 09, 2024 11:03 AM [facility] BUPRENORPHINE SCREEN PANEL Specimen Type: URINE [...] Oct 09, 2024 10:18 AM Reporting Lab: [address] [address] Performing Lab: [place] [address] [address] BUPRENORPHINE (URINE) NONE-DETECTED None Detected, Cutoff = 10.0 ng/mL PH, YAMEL 5.7 [pH] 4-10 CREATININE, YAMEL 153.27 mg/dL >20 SP.GRAVITY, YAMEL 1.018 1.00 3-1.02 0 Oct 09, 2024 11:03 AM [facility] CANNABINOIDS SCREEN PANEL Specimen Type: URINE [...] Oct 09, 2024 10:18 AM Reporting Lab: [address] [address] Performing Lab: [place] [address] CANNABINOIDS SCREEN POSITIVE HH None-Detec pranay,Cutoff = 50 ng/mL PH, YAMEL 5.7 [pH] 4-10 CREATININE, YAMEL 153.27 mg/dL >20 SP.GRAVITY, YAMEL 1.018 1.00 3-1.02 0 Oct 09, 2024 11:03 AM [facility] COCAINE SCREEN PANEL Specimen Type: URINE [...] Oct 09, 2024 10:18 AM Reporting Lab: [place] [id number] Performing Lab: [address] [address] COCAINE SCREEN NONE-DETECTED N one-Detec pranay,Cutoff = 300 ng/mL PH, YAMEL 5.7 [pH] 4-10 CREATININE, YMAEL 153.27 mg/dL >20 SP.GRAVITY, YAMEL 1.018 1.00 3-1.02 0 Oct 09, 2024 11:03 AM [facility] OPIATES SCREEN PANEL Specimen Type: URINE [...] Oct 09, 2024 10:18 AM Reporting Lab: [address] [address] Performing Lab: [address] [address] OPIATES SCREEN NONE-DETECTED N one-Detec pranay, Cutoff = 300 ng/mL PH, YAMEL 5.7 [pH] 4-10 CREATININE, YAMEL 153.27 mg/dL >20 SP.GRAVITY, YAMEL 1.018 1.00 3-1.02 0 Oct 09, 2024 11:03 AM [facility] OXYCODONE SCREEN PANEL Specimen Type: URINE [...] Oct 09, 2024 10:18 AM Reporting Lab: [address] [place] [address] Performing Lab: [place] [facility] [place] [facility] [address] [facility] [address] OXYCODONE SCREEN POSITIVE HH Non e-Detec pranay, [...] 2024 11:30 AM [facility]-TOBACCO USER [facility] Tobacco Use History This section includes a history of the smoking, or tobacco-related health factors, that were collected on or before the date of the Encounter. The data comes from the [place] facility where the Encounter took place. 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 [facility] [place] [facility] Aug 20, 2024 11:30 AM VA-TOBACCO USE MED NO [facility] [place] [facility] Aug 20, 2024 11:30 AM VA-TOBACCO USE WI 30 MIN OF WAKEUP [facility] [place] [facility] Aug 20, 2024 11:30 AM VA-TOBACCO USER EVERY DAY [facility] [place] [facility] Aug 15, 2023 04:34 PM VA-TOBACCO DOESNT USE WI 30 MIN WAKEUP [facility] [place] [facility] Aug 15, 2023 04:34 PM VA-TOBACCO USE > 1 5 LESS THAN 30 YEARS [facility] [place] [facility] Aug 15, 2023 04:34 PM VA-TOBACCO USE ADVICE [facility] [place] [facility] Aug 15, 2023 04:34 PM VA-TOBACCO USE RETAIL LOAN ORIGINATOR ASSISTANT NO [facility] [place] [facility] Aug 15, 2023 04:34 PM VA-TOBACCO USE MED NO [facility] [place] [facility] Aug 15, 2023 04:34 PM VA-TOBACCO USER EVERY DAY [facility] [place] [facility] Encounter Notes: All associated encounter notes This section contains the clinical notes associated to the Encounter. Date/Time Encounter Note(s) Provider Source Sep 28, 2024 04:45 PM NONVA NOTE: [facility] TITLE: [facility] SELF PRESENTING CARE COORD PLAN STANDARD TITLE: NONVA NOTE DATE OF NOTE: SEP 28, 2024@16:45 ENTRY DATE: SEP 28, 2024@16:45:57 AUTHOR: SHEA BUTLER EXP COSIGNER: URGENCY: STATUS: COMPLETED Emergency Notification Intake Date Presenting to the Facility: Sep Method of Contact: Notified from ECR worklist Notification ID: [id number] [facility] Referral [facility] Name: Hospital: [facility] Address: City: [place] State: [place] Zip Code: Phone : [facility] Facility Point of Contact: Name: Sarah Phone: Chief complaint: DEPRESSION, LEG SWELLING Primary Diagnosis: HYPOKALEMIA, HYPOMAGNESEMIA Disposition Admitted Route of Admission: ER Date of Admission: Sep Admitting Diagnosis: HYPOKALEMIA, HYPOMAGNESEMIA Community Care Provider: Confirm Level of Care: Compact Care Pending /leticia/ SHEA BUTLER AMSDale Signed: 09/28/2024 16:48 Receipt Acknowledged By: 11/17/2024 12:21 /leticia/ Carole FOOTE,RN,CCM TRANSFER/TRAVELING COORDINATOR SHEA BUTLER STEPHENSON
--- OUTSIDE RECORDS SUMMARY | 2024-11-20 10:05 | XMS_ITS ---
Author Name [facility] [place] Organization [place] Address [address] [place] [address] Care Team Providers Care Head Of Marketing Analytics Name Role Phone JAVI TYLER Primary Care [...] Policy Travis [facility] 2017 [facility] T CARE NON-B ILL 2024 [facility] [id number] [phone] JAVI MURGUIA PATIENT Selected Encounter This section includes the information on record at [place] for the Encounter. Date/Time Encounter Type Encounter Description Reason Pro vider Source Aug 28, 2024 04:00 PM Outpatient Encounter COMMUNITY CARE CONSULT IHE [...] - MEDICINE [facility] [place] [facility] Oct 09, 2024 09:30 AM AMBULATORY - MEDICINE [facility] [place] [facility] Oct 15, 2024 04:00 PM AMBULATORY - REHAB MEDICIN E [facility] [place] [facility] Oct 27, 2024 01:00 PM AMBULATORY - PSYCHIATRY [facility] [place] [facility] Oct 28, 2024 10:00 AM AMBULATORY - MEDICINE [facility] [place] [facility] Nov 17, 2024 02:45 PM AMBULATORY - MEDICINE [facility] [place] [facility] Nov 20, 2024 10:30 AM AMBULATORY - NONE [facility] [place] [facility] Nov 26, 2024 02:00 PM AMBULATORY - PSYCHIATRY [facility] [place] [facility] Dec 02, 2024 11:00 AM AMBULATORY - MEDICINE [facility] [place] [facility] Dec 03, 2024 02:00 PM AMBULATORY - PSYCHIATRY [facility] [place] [facility] Dec 10, 2024 02:00 PM AMBULATORY - PSYCHIATRY [facility] [place] [facility] Jan 04, 2025 11:00 AM AMBULATORY - MEDICINE [facility] [place] [facility] Jan 15, 2025 09:45 AM AMBULATORY - MEDICINE [place] [facility] [place] [facility] Active, Pending, and Scheduled Orders This section includes a listing of several types of active, pending, and scheduled orders, including clinic medications orders, diagnostic test orders, procedure orders and consult orders; where the start date of the order is 45 days before the date of the Encounter or 45 days after the date of theEncounter. The data comes from all [place] treatment [facility]. Test Date/Time Test Type Test Details Facility Name Aug 20, 2024 12:15 PM Consult Order COMMUNITY CARE-PULMONARY Cons [employer] Electrical Engineer's Choice [facility] [place] [facility] Aug 20, 2024 12:15 PM Consult Order COMMUNITY CARE-COLONOSCOPY SURVEILLANCE Cons [employer] Electrical Engineer's Choice [facility] [place] [facility] Aug 20, 2024 12:15 PM Consult Order COMMUNITY CARE-HEAD GRINDER Cons [employer] Electrical Engineer's Choice [place] [facility] [place] [facility] Aug 20, 2024 12:15 PM Consult Order COMMUNITY CARE-UROLOGY Cons [employer] Electrical Engineer's Choice [place] [facility] [place] [facility] Social History: Smoking Status (Most [...] 2024 11:30 AM VA-TOBACCO USER EVERY DAY [place] [facility] [place] [facility] Tobacco Use History This section includes a history of the smoking, or tobacco-related health factors, that were collected on or before the date of the Encounter. The data comes from the [place] facility where the Encounter took place. Date/Time Smoking Status/Tobacco Use Comment F acility Aug 20, 2024 11:30 AM VA-TOBACCO USE ADVICE [facility] [place] 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 Aug 20, 2024 11:30 AM VA-TOBACCO USE MED NO [facility] [place] [facility] Aug 20, 2024 11:30 AM VA-TOBACCO USE WI 30 MIN OF WAKEUP [facility] [place] [facility] Aug 20, 2024 11:30 AM VA-TOBACCO USER EVERY DAY [facility] [place] [facility] Aug 15, 2023 04:34 PM VA-TOBACCO DOESNT USE WI 30 MIN WAKEUP [facility] [place] [facility] Aug 15, 2023 04:34 PM VA-TOBACCO USE > 1 5 LESS THAN 30 YEARS [facility] [place] [facility] Aug 15, 2023 04:34 PM VA-TOBACCO USE ADVICE [facility] [place] 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 Aug 15, 2023 04:34 PM VA-TOBACCO USE MED NO [facility] [place] [facility] Aug 15, 2023 04:34 PM VA-TOBACCO USER EVERY DAY [facility] [place] [facility]
--- OUTSIDE RECORDS SUMMARY | 2024-11-20 10:05 | XMS_ITS ---
Author Name [facility] [place] [facility] [place] Address [address] [place] [address] Care Team Providers Care Business Intelligence Engineer Name Role Phone JAVI TYLER Primary [...] Patient's Relationship to Policy Travis [facility] 2017 [facility] DIRE T CARE NON-B ILL 2024 [facility] [id number] JAVI MURGUIA PATIENT Selected Encounter This section includes the information on record at [place] for the Encounter. Date/Time Encounter Type Encounter Description Reason Provider Source Oct 09, 2024 09:30 AM OFFICE O/P EST HI 40 MIN PAIN CLINIC ICD-10-CM M25.561 Pain in right knee [facility] [place] [facility] Encounter Template Text not used by [facility] Assessments - Encounter Diagnoses This section includes the primary and secondary diagnoses documented for the Encounter. Date/Time Primary/Secondary Diagnosis Diagnosis Name Provider Source Oct 09, 2024 03:07 PM PRIMARY Pain in right knee MARIO PERDOMO B [place] [facility] [place] [facility] Oct 09, 2024 03:07 PM SECONDARY Alcohol dependence, uncomplicated KUPFERSCHMID, MARIO B [facility] [place] [facility] Oct 09, 2024 03:07 PM SECONDARY Cervicalgia KUPFERSCHMID, MARIO B [facility] [place] [facility] Oct 09, 2024 03:07 PM SECONDARY Chronic obstructive pulmonary disease, unspecified KUPFERSCHMID, MARIO B [facility] [place] [facility] Oct 09, 2024 03:07 PM SECONDARY Chronic pain due to trauma KUPFERSCHMID, MARIO B [facility] [place] [facility] Oct 09, 2024 03:07 PM SECONDARY Essential (primary) hypertension KUPFERSCHMID[place] MARIO B [place] [facility] [place] [facility] Plan of Treatment: Future Appointments (+ 6 months) and Future Tests (+/- 45 days) The Plan of Treatment section includes future care activities for the patient from all [place] treatmentfacilities. This section includes future appointments and [...] REHAB MEDICIN E [facility] [place] [facility] Oct 27, 2024 01:00 PM AMBULATORY - PSYCHIATRY [facility] [place] [facility] Oct 28, 2024 10:00 AM AMBULATORY - MEDICINE [facility] [place] [facility] Nov 17, 2024 02:45 PM AMBULATORY - MEDICINE [facility] [place] [facility] Nov 20, 2024 10:30 AM AMBULATORY - NONE [facility] [place] [facility] Nov 26, 2024 02:00 PM AMBULATORY - PSYCHIATRY [facility] [place] [facility] Dec 02, 2024 11:00 AM AMBULATORY - MEDICINE [facility] [place] [facility] Dec 03, 2024 02:00 PM AMBULATORY - PSYCHIATRY [facility] [place] [facility] Dec 10, 2024 02:00 PM AMBULATORY - PSYCHIATRY [facility] [place] [facility] Jan 04, 2025 11:00 AM AMBULATORY - MEDICINE [facility] Jan 15, 2025 09:45 AM AMBULATORY - MEDICINE [facility] Active, Pending, and Scheduled Orders This section includes a listing of several types of active, pending, and scheduled orders, including clinic medications orders, diagnostic test orders, procedure orders and consult orders; where the start date of the order is 45 days before the date of the Encounter or 45 days after the date of theEncounter. The data comes from all [place] treatment facilities. Test Date/Time Test Type Test Details Facility Name Oct 27, 2024 03:39 PM Consult Order [facility] OUTPT Cons [employer] [facility] Lab Results: +/- 30 days of the [...] Range Comment Oct 09, 2024 11:03 AM [facility] METHADONE SCREEN Specimen Type: URINE Comment: YAMEL test are qualitative, any L or H flags only indicate a VA alert was sent. Ordering Provider: MARIO PERDOMO Report Released Date/Time: Oct 09, 2024 10:18 AM Reporting Lab: [facility] [address] [facility] [address] Performing Lab: [facility] [address] [address] METHADONE SCREEN None detected(Nega tive) L Negative Oct 09, 2024 11:03 AM [facility] AMPHETAMINES SCREEN PANEL Specimen Type: URINE Comment: [...] 11 may have been adulterated. Ordering Provider: MARIO PERDOMO Report Released Date/Time: Oct 09, 2024 10:18 AM Reporting Lab: [address] [address] Performing Lab: [address] [address] AMPHETAMINES SCREEN NONE-DETECTED None-Detec pranay, Cutoff = 1000 ng/mL PH, YAMEL 5.7 [pH] 4-10 CREATININE, YAMEL 153.27 mg/dL >20 SP.GRAVITY, YAMEL 1.018 1.00 3-1.02 0 Oct 09, 2024 11:03 AM [facility] ALCOHOL, ETHYL URINE PANEL Specimen Type: URINE [...] 11 may have been adulterated. Ordering Provider: MARIO PERDOMO Report Released Date/Time: Oct 09, 2024 10:18 AM Reporting Lab: [address] [address] Performing Lab: [address] [address] ALCOHOL, ETHYL URINE NONE-DETECTED mg/dL NONE-DETEC PRANAY, cutoff = 10 mg/dL PH, YAMEL 5.7 [pH] 4-10 CREATININE, YAMEL 153.27 mg/dL >20 SP.GRAVITY, YAMEL 1.018 1.00 3-1.02 0 Oct 09, 2024 11:03 AM [facility] FENTANYL SCREEN PANEL Specimen Type: URINE Comment: [...] Ordering Provider: MARIO PERDOMO Report Released Date/Time: Oct 09, 2024 10:18 AM Reporting Lab: [address] [address] Performing Lab: [address] [address] FENTANYL SCREEN NONE-DETECTE D ng/mL Negative: Cutoff = 1.00 ng/mL PH, YAMEL 5.7 [pH] 4-10 CREATININE, YAMEL 155.37 mg/dL >20 SP.GRAVITY, YAMEL 1.018 1.00 3-1.02 0 Oct 09, 2024 11:03 AM [facility] BENZODIAZEPINES SCREEN PANEL Specimen Type: URINE Comment: [...] 11 may have been adulterated. Ordering Provider: MARIO PERDOMO Report Released Date/Time: Oct 09, 2024 10:18 AM Reporting Lab: [address] [address] Performing Lab: [address] [address] BENZODIAZEPINES SCREEN POSITIVE HH None-Detec pranay, Cutoff = 200 ng/mL PH, YAMEL 5.7 [pH] 4-10 CREATININE, YAMEL 153.27 mg/dL >20 SP.GRAVITY, YAMEL 1.018 1.00 3-1.02 0 Oct 09, 2024 11:03 AM [facility] BUPRENORPHINE SCREEN PANEL Specimen Type: URINE Comment: [...] 11 may have been adulterated. Ordering Provider: MARIO PERDOMO Report Released Date/Time: Oct 09, 2024 10:18 AM Reporting Lab: [address] [address] Performing Lab: [address] [address] BUPRENORPHINE (URINE) NONE-DETECTED None Detected, Cutoff = 10.0 ng/mL PH, YAMEL 5.7 [pH] 4-10 CREATININE, YAMEL 153.27 mg/dL >20 SP.GRAVITY, YAMEL 1.018 1.00 3-1.02 0 Oct 09, 2024 11:03 AM [facility] CANNABINOIDS SCREEN PANEL Specimen Type: URINE Comment: [...] 11 may have been adulterated. Ordering Provider: MARIO PERDOMO Report Released Date/Time: Oct 09, 2024 10:18 AM Reporting Lab: [address] [address] Performing Lab: [address] [address] CANNABINOIDS SCREEN POSITIVE HH None-Detec pranay,Cutoff = 50 ng/mL PH, YAMEL 5.7 [pH] 4-10 CREATININE, YAMEL 153.27 mg/dL >20 SP.GRAVITY, YAMEL 1.018 1.00 3-1.02 0 Oct 09, 2024 11:03 AM [facility] OPIATES SCREEN PANEL Specimen Type: URINE Comment: [...] 11 may have been adulterated. Ordering Provider: MARIO PERDOMO Report Released Date/Time: Oct 09, 2024 10:18 AM Reporting Lab: [address] [address] Performing Lab: [address] [address] OPIATES SCREEN NONE-DETECTED N one-Detec pranay, Cutoff = 300 ng/mL PH, YAMEL 5.7 [pH] 4-10 CREATININE, YAMEL 153.27 mg/dL >20 SP.GRAVITY, YAMEL 1.018 1.00 3-1.02 0 Oct 09, 2024 11:03 AM [facility] COCAINE SCREEN PANEL Specimen Type: URINE Comment: [...] 11 may have been adulterated. Ordering Provider: MARIO PERDOMO Report Released Date/Time: Oct 09, 2024 10:18 AM Reporting Lab: [address] [address] Performing Lab: [address] [address] COCAINE SCREEN NONE-DETECTED N one-Detec pranay,Cutoff = 300 ng/mL PH, YAMEL 5.7 [pH] 4-10 CREATININE, YAMEL 153.27 mg/dL >20 SP.GRAVITY, YAMEL 1.018 1.00 3-1.02 0 Oct 09, 2024 11:03 AM [facility] OXYCODONE SCREEN PANEL Specimen Type: URINE Comment: [...] 11 may have been adulterated. Ordering Provider: MARIO PERDOMO Report Released Date/Time: Oct 09, 2024 10:18 AM Reporting Lab: [facility] [address] [facility] [address] Performing [facility]: [facility] [address] [facility] [address] OXYCODONE SCREEN POSITIVE HH Non e-Detec pranay, [...] 2024 11:30 AM VA-TOBACCO USER EVERY DAY [facility] Tobacco Use History This section includes a history of the smoking, or tobacco-related health factors, that were collected on or before the date of the Encounter. The data comes from the [place] facility where the Encounter took place. 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 [place] [facility] [facility] Aug 20, 2024 11:30 AM VA-TOBACCO USE MED NO [place] [facility] [place] [facility] Aug 20, 2024 11:30 AM VA-TOBACCO USE WI 30 MIN OF WAKEUP [place] [facility] Aug 20, 2024 11:30 AM VA-TOBACCO USER EVERY DAY [facility] [place] [facility] Aug 15, 2023 04:34 PM VA-TOBACCO DOESNT USE WI 30 MIN WAKEUP [place] [facility] [facility] Aug 15, 2023 04:34 PM VA-TOBACCO USE > 1 5 LESS THAN 30 YEARS [facility] [place] [facility] Aug 15, 2023 04:34 PM VA-TOBACCO USE ADVICE [facility] [place] [facility] Aug 15, 2023 04:34 PM 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 Date/Time Encounter Note(s) Provider Source Oct 09, 2024 10:14 AM ACCOUNTING OF DISCLOSURES NOTE: LOCAL TITLE: STATE PRESCRIPTION DRUG MONITORING PROGRAM STANDARD TITLE: ACCOUNTING OF DISCLOSURES NOTE DATE OF NOTE: OCT 09, 2024@10:14:12 ENTRY DATE: OCT 09, 2024@10:14:12 AUTHOR: MARIO PERDOMO EXP COSIGNER: URGENCY: STATUS: COMPLETED [facility] PRESCRIPTION DRUG MONITORING PROGRAM Has ADDENDA This PDMP query was submitted by Mario Perdomo MD. The clinical justification for this PDMP query is to review controlled substances prescribed outside of the [facility], and any additional information that may become available, as an important component of standard clinical care, and in accordance with [facility] policy. Patient information was shared with the PDMP [place]. No prescription(s) for controlled substances outside the [facility] were found in the last 90 days. /leticia/ MARIO PERDOMO MD PHYSICIAN Signed: 10/09/2024 10:14 10/09/2024 ADDENDUM STATUS: COMPLETED 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 Type CHILD THERAPIST 04/21/2024 2 04/10/2024 Diazepam 5 Mg Tablet 24.00 28 Se [facility] [id number] [place] (4904) 0/1 /VA MA 04/10/2024 2 04/10/2024 Oxycodone Hcl (Ir) 5 Mg Tablet 60.00 30 Se Kup [id number] [place] (4904) 0/0 15.00 MME /VA MA 04/01/2024 2 02/18/2024 Buprenorphine 2 Mg Tablet Sl 90.00 30 Se [place] [id number] [place] (5614) 0/1 6.00 mg /VA MA 04/01/2024 2 04/01/2024 Diazepam 5 Mg Tablet 24.00 28 Wi Cut [id number] [place] (4904) 0/0 /VA MA 02/18/2024 2 02/18/2024 Oxycodone Hcl (Ir) 5 Mg Tablet 112.00 28 Se Kup [id number] [place] (4904) 0/0 30.00 MME /VA MA 02/18/2024 2 02/18/2024 Diazepam 5 Mg Tablet 24.00 28 Se Kup [id number] Ut (4904) 0/0 /VA MA 02/14/2024 2 12/18/2023 Buprenorphine 2 Mg Tablet Sl 90.00 30 Se Kup [id number] Ut (5614) 1/ 6.00 mg /VA MA 01/16/2024 2 01/16/2024 Oxycodone Hcl (Ir) 5 Mg Tablet 112.00 28 Ki March [id number] [place] (4904) 0/0 30.00 MME /VA MA 12/26/2023 2 12/18/2023 Buprenorphine 2 Mg Tablet Sl 90.00 30 Se Kup [id number] Ut (5614) 0/1 6.00 mg /VA MA 12/18/2023 1 12/17/2023 Testosterone Cyp 200 Mg/ml 4.00 28 Al Phong [id number] [facility] (4113) 0/5 Comm Ins [place] 11/22/2023 2 11/22/2023 Oxycodone Hcl (Ir) 5 Mg Tablet 112.00 28 Se Kup [id number] [place] (4904) 0/0 30.00 MME /VA MA 11/22/2023 2 11/22/2023 Buprenorphine 2 Mg Tablet Sl 60.00 30 Se Kup [id number] Ut (4904) 0/1 4.00 mg /VA MA 10/24/2023 2 10/23/2023 Oxycodone Hcl (Ir) 5 Mg Tablet 112.00 28 Se [facility] [id number] [place] (4904) 0/0 30.00 MME /VA MA 10/24/2023 2 09/12/2023 Buprenorphine 2 Mg Tablet Sl 60.00 30 Se [facility] [id number] [place] (4904) 1/ 4.00 mg /VA MA 10/24/2023 2 10/24/2023 Diazepam 5 Mg Tablet 15.00 5 Se [facility] [id number] [place] (4904) 0/0 /VA MA 09/13/2023 2 09/12/2023 Buprenorphine 2 Mg Tablet Sl 60.00 30 Se [facility] [id number] [place] (4904) 0/1 4.00 mg /VA MA 09/13/2023 2 09/12/2023 Oxycodone Hcl (Ir) 5 Mg Tablet 120.00 30 Se [facility] [id number] [place] (4904) 0/0 30.00 MME /VA MA 08/26/2023 2 08/26/2023 Oxycodone Hcl (Ir) 5 Mg Tablet 32.00 28 Se [facility] [id number] [place] (4904) 0/0 8.57 MME /VA MA 07/24/2023 2 07/22/2023 Oxycodone Hcl (Ir) 5 Mg Tablet 32.00 28 Se [facility] [id number] [place] (4904) 0/0 8.57 MME /VA MA 07/05/2023 1 07/05/2023 Alprazolam 1 Mg Tablet 1.00 1 De Julio [id number] [facility] (9473) 0/0 Comm Ins [place] 07/03/2023 2 07/01/2023 Belbuca 900 Mcg Film 90.00 30 Se [facility] [id number] [place] (4904) 0/1 2.70 mg /VA MA 07/02/2023 2 07/01/2023 Oxycodone Hcl (Ir) 5 Mg Tablet 32.00 28 Se [facility] [id number] [place] (4904) 0/0 8.57 MME /VA MA 06/28/2023 1 06/28/2023 Testosterone Cyp 200 Mg/ml 2.00 14 Al Phong [id number] [facility] (4143) 0/5 Comm Ins [place] 05/30/2023 2 05/17/2023 Oxycodone Hcl (Ir) 5 Mg Tablet 48.00 28 Se [facility] [id number] [place] (4904) 0/0 12.86 MME /VA MA 05/02/2023 2 04/19/2023 Oxycodone Hcl (Ir) 5 Mg Tablet 48.00 28 Se [facility] [id number] [place] (4904) 0/0 12.86 MME /VA MA 04/09/2023 1 04/09/2023 Zolpidem Tartrate 10 Mg Tablet 30.00 30 Vielka Bettina [id number] [facility] (4113) 0/0 Comm Ins [place] 04/05/2023 2 04/05/2023 Oxycodone Hcl (Ir) 5 Mg Tablet 48.00 28 Se [facility] [id number] [place] (4904) 0/0 12.86 MME /[place] 03/27/2023 1 03/27/2023 Testosterone Cyp 200 Mg/ml 2.00 35 Al Phong [id number] [facility] (4113) 0/5 Comm Ins [place] 12/27/2022 1 07/19/2022 Zolpidem Tartrate 10 Mg Tablet 30.00 30 Vielka Bettina [id number] [facility] (4113) 2/3 Comm Ins [place] 11/09/2022 1 06/13/2022 Testosterone Cyp 200 Mg/ml 4.00 28 Al Phong [id number] [facility] (4113) 1/3 Comm Ins [place] 10/24/2022 1 07/19/2022 Zolpidem Tartrate 10 Mg Tablet 30.00 30 Vielka Bettina [id number] [facility] (4113) 1/3 [facility] [place] 10/22/2022 1 10/18/2022 Chlordiazepoxide 25 Mg Capsule 8.00 4 Kr Fle [id number] [facility] (4113) 0/0 Comm Ins [place] // MARIO PERDOMO MD PHYSICIAN Signed: 10/09/2024 10:27 MARIO PERDOMO [place] [facility] [place] [facility] Oct 09, 2024 09:44 AM PAIN MEDICINE OUTPATIENT NOTE: LOCAL TITLE: PAIN CLINIC NOTE STANDARD TITLE: PAIN MEDICINE OUTPATIENT NOTE DATE OF NOTE: OCT 09, 2024@09:44 ENTRY DATE: OCT 09, 2024@09:44:17 AUTHOR: MARIO PERDOMO EXP COSIGNER: URGENCY: STATUS: COMPLETED CURRENT ======= I stopped drinking September 19 for my relationship. Now I know how much pain I have because I am not drunk all the time. I have woken up to how miserable this fucking life is. Possibly moving to [facility] in November. Relationship on the rocks. Forgot his cane. Yinas bafg of medications [facility], Chlorthalidone, [place] Spironolactone, [facility] Potassium, [place] Amlodipine, [facility] Tamsulosin, [place] Buspirone, [place], Garbage, does nothing. Mag Oxide, [facility] Diazepam, last fill April Omeprazole Do you have a problem with alcohol? I used to. I don't anymore. AA: I did that in the past when they made me. I did not drink the colby-anuja. PAIN-RELATED CONDITIONS PCP at [facility], Jose Fried Cervical and lumbar spine issues Right shoulder worse than left Knees Alcohol use disorder, [place] detox and rehab November 12 to Dec 30, 2022. 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 Daughters in [place], [place] (1998 and 2003); estranged. 1 brother [...] PTSD, sleep apnea, asthma, low testosterone, HTN. 10/09/2024 Severe AUD, remission for 20 days. Limited insight and understanding. Quick to interrupt, thinks he has the answers. Defensive. Blames others for his problems and not getting help. Not interested in MH support. He left the appointment today angry and with words to me because he did not receive diazepam, oxycodone, and handicapped placard. AUD Stopped 20 days ago because GF is leaving him. He did a brief detox. They gave me a medication that cost $220 so I did not get it. He may benefit from naltrexone or topiramate. Too insistent on diazepam, which he said he used multiple tabs at once, to accept alternative medication. SLEEP Terrible since I stopped ETOH. CHRONIC PAIN He reports he was receiving OxyContin from community PCP and prior [facility] provider (has only received opioids from me). Says his UDS will be positive due to recent oxy 10 mg from friend, only 1 pill 2 days ago. Does not want buprenorphine, That stuff is shit. Agrees to Butrans patch, start at 10 mcg/hour. Check UDS. PRIMARY CARE ISSUES - HTN and COPD He wants Advair HFA, not Wixela. -Albuteral/ipratropium nebs and nebulizer machine. HTN: overlapping therapy with spironolactone and chlorthalidone from community PCP and [facility] PCP -Stop chlorthalidone. He is not taking amlodipine, My BP is normal since I stopped drinking. BP 130/90 in office (checked twice). Lower extremity edema mild today. ANXIETY, PROBABLE PTSD Asks for referral to and says, GF wants me to start this. There is no point because I am probably moving to [place] soon to be with her. -Refer to [facility] man I tried to discuss the importance of taking medications as directed, using a single PCP (says he will get all PC here now). Says he uses as directed; refill record, what he says, and his collection of medication bottles suggest he does not use as directed. Shailesh going to [facility] for November. 05/25/2024 LEG EDEMA Much worse. Not taking [...] risks and risks for relapse. (Call to at 4:30 to ask if he called [...] sleep. EDEMA Worsened. Instructed to see PCP. Shailesh moved in with him in March. [place] and I formulated the plan through shared medical-decision making. repeated the plan back to me and had no further questions at end of appointment. APPOINTMENT LENGTH: minutes FOLLOW-UP: weeks 10/15/2024 16:00 [facility] EXAM[facility] 10/28/2024 10:00 CWM/NO/ACUPUNCTURE R2 01/04/2025 11:00 CWM/NO/PACT 4 === MEDICATION and RECONCILIATION === Active Outpatient Medications (including Supplies): Active Outpatient Medications Status 1) AMLODIPINE BESYLATE 5MG TAB TAKE ONE TABLET BY MOUTH ACTIVE ONCE DAILY FOR BLOOD PRESSURE/HEART, DO NOT TAKE WITH GRAPEFRUIT JUICE 2) CETIRIZINE HCL 10MG TAB TAKE ONE TABLET BY MOUTH ONCE ACTIVE DAILY FOR ALLERGIES Not allergy season 3) CHLORTHALIDONE 25MG TAB TAKE ONE TABLET BY MOUTH ONCE ACTIVE DAILY FOR HIGH BLOOD PRESSURE TO REMOVE FLUID/CONTROL BLOOD PRESSURE Not taking; has spironolactone from community 4) FLUTICAS 250/SALMETEROL 50 INHL DISK 60 INHALE 1 PUFF ACTIVE BY MOUTH TWICE DAILY - RINSE MOUTH AFTER USE 5) NICOTINE 14MG/24HR PATCH APPLY 1 PATCH TO SKIN ONCE ACTIVE DAILY FOR SMOKING CESSATION (REMOVE OLD PATCH BEFORE APPLYING NEW PATCH) 6) NICOTINE POLACRILEX 2MG MINI LOZENGE DISSOLVE 1 ACTIVE LOZENGE BY MOUTH SIX TIMES A DAY NEEDED FOR NICOTINE REPLACEMENT 7) OMEPRAZOLE 20MG EC CAP TAKE TWO CAPSULES BY MOUTH ACTIVE EVERY MORNING 30 MINUTES BEFORE BREAKFAST FOR GASTROESOPHAGEAL REFLUX DISEASE 8) PAROXETINE HCL 40MG TAB TAKE ONE TABLET BY MOUTH ONCE ACTIVE DAILY 9) POTASSIUM CHLORIDE 10MEQ SA TAB TAKE ONE TABLET BY ACTIVE MOUTH ONCE DAILY FOR LOW POTASSIUM 10) PREDNISONE 20MG TAB TAKE THREE TABLETS BY MOUTH ONCE ACTIVE DAILY FOR ASTHMA 11) QUETIAPINE FUMARATE 50MG TAB TAKE ONE TABLET BY MOUTH ACTIVE AT BEDTIME NEEDED FOR SLEEP 12) SILDENAFIL CITRATE 100MG TAB TAKE ONE TABLET BY MOUTH ACTIVE ONCE DAILY TAKE 1 HOUR PRIOR TO SEXUAL ACTIVITY 13) TAMSULOSIN HCL 0.4MG CAP TAKE ONE CAPSULE BY MOUTH AT ACTIVE BEDTIME FOR ENLARGED PROSTATE 14) TIOTROPIUM 2.5MCG/ACTUAT 60D ORAL INHL INHALE 2 PUFFS ACTIVE BY MOUTH ONCE DAILY Active Non-VA Medications Status 1) Non-VA ALBUTEROL [...] OXIDE TAB BY MOUTH ACTIVE 7) Non-VA BEHLE-5-FOFI ETHYL ESTERS 1000MG CAP 1000MG BY ACTIVE [...] 2 ACTIVE PUFFS BY MOUTH ONCE DAILY 26 Total Medications ACTIVE PROBLEMS Active problems - Computerized Problem List is the source for the followin. Benign Prostatic Hypertrophy with Outflow Obstruction ([facility] [id number]) 2. Colonic polyp 3. COPD - Chronic Obstructive Pulmonary Disease ([facility] [id number]) 4. HTN - Hypertension ([facility] [id number]) 5. Exposure to potentially hazardous substance 6. Erectile Dysfunction ([facility] [id number]) 7. Neck Pain ([facility] [id number]) 8. Pain of Right Knee ([facility] [id number]) 9. Shoulder Pain ([facility] [id number]) 10. Low testosterone 11. GERD - Gastro-Esophageal Reflux Disease ([facility] [id number]) 12. Headache ([facility] [id number]) 13. Allergic Rhinitis ([facility] [id number]) 14. Concussion with loss of consciousness 15. Asthma ([facility] [id number]) 16. SAS - Sleep apnoea syndrome 17. Chronic pain 18. Alcohol dependence 19. Tobacco abuse 20. Posttraumatic stress disorder Appointment length includes time with , completing clinical reminders, reviewing relevant information in EMR, review of PDMP, ordering appropriate tests, prescribing medications, coordinating care, and completing the medical record. Quotations may not be exact and are intended to the effect of what the [place] was saying. /leticia/ MARIO PERDOMO MD PHYSICIAN Signed: 10/09/2024 15:07 Receipt Acknowledged By: 10/11/2024 15:30 /leticia/ JAVI TYLER MD PHYSICIAN MARIO PERDOMO [place] [facility]
--- OUTSIDE RECORDS SUMMARY | 2024-11-20 10:05 | XMS_ITS | Encounter Summary ---
Author Name [facility] [place] Address [address] [place] [address] Care Team Providers Care Deployment Engineer Name Role Phone JAVI TYLER Primary [...] Patient's Relationship to Policy Travis [facility] [address] [facility] CARE NON-B ILL 2024 [facility] [id number] JAVI MURGUIA PATIENT Selected Encounter This section includes the information on record at [place] for the Encounter. Date/Time Encounter Type Encounter Description Reason Pro vider Source Oct 07, 2024 10:48 AM Outpatient Encounter PAIN CLINIC [facility] Encounter Template Text not used by [place] Plan of Treatment: Future Appointments (+ 6 [...] 20 appointments. The data comes from all [place] treatment [facility]. Appointment Date/Time Appointment Type Appointme nt Facility Name Oct 09, 2024 09:30 AM AMBULATORY - MEDICINE [facility] [place] [facility] Oct 15, 2024 04:00 PM AMBULATORY - REHAB MEDICIN E [facility] [place] [facility] Oct 27, 2024 01:00 PM AMBULATORY - PSYCHIATRY [facility] [place] [facility] Oct 28, 2024 10:00 AM AMBULATORY - MEDICINE [facility] [place] [facility] Nov 17, 2024 02:45 PM AMBULATORY - MEDICINE [facility] [place] [facility] Nov 20, 2024 10:30 AM AMBULATORY - NONE [facility] [place] [facility] Nov 26, 2024 02:00 PM AMBULATORY - PSYCHIATRY [facility] [place] [facility] Dec 02, 2024 11:00 AM AMBULATORY - MEDICINE [facility] [place] [facility] Dec 03, 2024 02:00 PM AMBULATORY - PSYCHIATRY [facility] [place] [facility] Dec 10, 2024 02:00 PM AMBULATORY - PSYCHIATRY [facility] [place] [facility] Jan 04, 2025 11:00 AM AMBULATORY - MEDICINE [facility] [place] [facility] Jan 15, 2025 09:45 AM AMBULATORY - MEDICINE [facility] [place] [facility] Active, Pending, and Scheduled Orders This section includes a listing of several types of active, pending, and scheduled orders, including clinic medications orders, diagnostic test orders, procedure orders and consult orders; where the start date of the order is 45 days before the date of the Encounter or 45 days after the date of theEncounter. The data comes from all [facility]. Test Date/Time Test Type Test Details Facility Name Oct 27, 2024 03:39 PM Consult Order [facility] OUTPT Cons Scratcher Tender's Choice [facility] [place] [facility] Lab Results: +/- 30 days of the encounter This section includes the Chemistry and Hematology Lab Results on record with [place] for the patient. Radiology Reports and Pathology Reports are provided separately, in subsequent sections. Lab Results This section contains the Chemistry/Hematology Results that were resulted 30 days before or 30 daysafter the date of the Encounter. Date/Time Source Result Type Result - Unit Interpretation Reference Range Comment Oct 09, 2024 11:03 AM [facility] METHADONE SCREEN Specimen Type: URINE Comment: YAMEL test are qualitative, any L or H flags only indicate a VA alert was sent. Ordering Provider: PHILIPPE WALLACE Report Released Date/Time: Oct 09, 2024 10:18 AM Reporting Lab: [address] [address] Performing Lab: [facility] [address] [facility] [address] METHADONE SCREEN None detected(Nega tive) L Negative Oct 09, 2024 11:03 AM [facility] AMPHETAMINES SCREEN PANEL Specimen Type: URINE [...] 09, 2024 10:18 AM Reporting Lab: [address] [address] Performing Lab: [address] [address] AMPHETAMINES SCREEN NONE-DETECTED None-Detec pranay, Cutoff = 1000 ng/mL PH, YAMEL 5.7 [pH] 4-10 CREATININE, YAMEL 153.27 mg/dL >20 SP.GRAVITY, YAMEL 1.018 1.00 3-1.02 0 Oct 09, 2024 11:03 AM [facility] ALCOHOL, ETHYL URINE PANEL Specimen Type: [...] 09, 2024 10:18 AM Reporting Lab: [address] [address] Performing Lab: [address] [address] ALCOHOL, ETHYL URINE NONE-DETECTED mg/dL NONE-DETEC PRANAY, cutoff = 10 mg/dL PH, YAMEL 5.7 [pH] 4-10 CREATININE, YAMEL 153.27 mg/dL >20 SP.GRAVITY, YAMEL 1.018 1.00 3-1.02 0 Oct 09, 2024 11:03 AM [facility] FENTANYL SCREEN PANEL Specimen Type: URINE [...] 09, 2024 10:18 AM Reporting Lab: [address] [address] Performing Lab: [address] [address] FENTANYL SCREEN NONE-DETECTE D ng/mL Negative: Cutoff = 1.00 ng/mL PH, YAMEL 5.7 [pH] 4-10 CREATININE, YAMEL 155.37 mg/dL >20 SP.GRAVITY, YAMEL 1.018 1.00 3-1.02 0 Oct 09, 2024 11:03 AM [facility] BENZODIAZEPINES SCREEN PANEL Specimen Type: URINE [...] 09, 2024 10:18 AM Reporting Lab: [address] [address] Performing Lab: [address] [address] BENZODIAZEPINES SCREEN POSITIVE HH None-Detec pranay, Cutoff = 200 ng/mL PH, YAMEL 5.7 [pH] 4-10 CREATININE, YAMEL 153.27 mg/dL >20 SP.GRAVITY, YAMEL 1.018 1.00 3-1.02 0 Oct 09, 2024 11:03 AM [facility] BUPRENORPHINE SCREEN PANEL Specimen Type: URINE [...] 09, 2024 10:18 AM Reporting Lab: [address] [address] Performing Lab: [address] [address] BUPRENORPHINE (URINE) NONE-DETECTED None Detected, Cutoff = 10.0 ng/mL PH, YAMEL 5.7 [pH] 4-10 CREATININE, YAMEL 153.27 mg/dL >20 SP.GRAVITY, YAMEL 1.018 1.00 3-1.02 0 Oct 09, 2024 11:03 AM [facility] CANNABINOIDS SCREEN PANEL Specimen Type: URINE [...] 09, 2024 10:18 AM Reporting Lab: [address] [address] Performing Lab: [address] [address] CANNABINOIDS SCREEN POSITIVE HH None-Detec pranay,Cutoff = 50 ng/mL PH, YAMEL 5.7 [pH] 4-10 CREATININE, YAMEL 153.27 mg/dL >20 SP.GRAVITY, YAMEL 1.018 1.00 3-1.02 0 Oct 09, 2024 11:03 AM [facility] COCAINE SCREEN PANEL Specimen Type: URINE [...] 09, 2024 10:18 AM Reporting Lab: [address] [address] Performing Lab: [address] [address] COCAINE SCREEN NONE-DETECTED N one-Detec pranay,Cutoff = 300 ng/mL PH, YAMEL 5.7 [pH] 4-10 CREATININE, YAMEL 153.27 mg/dL >20 SP.GRAVITY, YAMEL 1.018 1.00 3-1.02 0 Oct 09, 2024 11:03 AM [facility] OPIATES SCREEN PANEL Specimen Type: URINE [...] Oct 09, 2024 10:18 AM Reporting Lab: [facility] [address] [address] Performing Lab: [address] [address] OPIATES SCREEN NONE-DETECTED N one-Detec pranay, Cutoff = 300 ng/mL PH, YAMEL 5.7 [pH] 4-10 CREATININE, YAMEL 153.27 mg/dL >20 SP.GRAVITY, YAMEL 1.018 1.00 3-1.02 0 Oct 09, 2024 11:03 AM [facility] OXYCODONE SCREEN PANEL Specimen Type: URINE [...] 09, 2024 10:18 AM Reporting Lab: [address] [address] Performing Lab: [address] [address] OXYCODONE SCREEN POSITIVE HH Non e-Detec pranay, Cutoff = 100 ng/mL PH, YAMEL 5.7 [pH] 4-10 CREATININE, YAMEL 153.27 mg/dL >20 SP.GRAVITY, YAMEL 1.018 1.00 3-1.02 0 Social History: Smoking Status (Most current) and Tobacco Use (All prior to encounter date) This section includes the most current, and the historical, smoking and tobacco- related health factors from the [place] facility where the Encounter took place. Current Smoking Status This section includes the most current smoking, or tobacco-related health factor, from the [place] facility where the Encounter took place. Date/Time Current Smoking Status Comment Katty ity Aug 20, 2024 11:30 AM VA-TOBACCO USER EVERY DAY [facility] Tobacco Use History This section includes a history of the smoking, or tobacco-related health factors, that were collected on or before the date of the Encounter. The data comes from the [place] facility where the Encounter took place. Date/Time Smoking Status/Tobacco Use Comment F acility Aug 20, 2024 11:30 AM VA-TOBACCO USE ADVICE [facility] [place] [facility] Aug 20, 2024 11:30 AM VA-TOBACCO USE OFFICE AGENT NO [facility] [place] [facility] Aug 20, 2024 11:30 AM VA-TOBACCO USE MED NO [facility] [place] [facility] Aug 20, 2024 11:30 AM VA-TOBACCO USE WI 30 MIN OF WAKEUP [facility] [place] [facility] Aug 20, 2024 11:30 AM VA-TOBACCO USER EVERY DAY [facility] [place] [facility] Aug 15, 2023 04:34 PM VA-TOBACCO DOESNT USE WI 30 MIN WAKEUP [facility] [place] [facility] Aug 15, 2023 04:34 PM VA-TOBACCO USE > 1 5 LESS THAN 30 YEARS [facility] [place] [facility] Aug 15, 2023 04:34 PM VA-TOBACCO USE ADVICE [facility] [place] [facility] Aug 15, 2023 04:34 PM VA-TOBACCO USE OFFICE AGENT NO [facility] [place] [facility] Aug 15, 2023 04:34 PM VA-TOBACCO USE MED NO [facility] [place] [facility] Aug 15, 2023 04:34 PM VA-TOBACCO USER EVERY DAY [facility] [place] [facility] Encounter Notes: All associated encounter notes This section contains the clinical notes associated to the Encounter. Date/Time Encounter Note(s) Provider Source Oct 07, 2024 10:48 AM TELEPHONE ENCOUNTE R NOTE: LOCAL TITLE: TELEPHONE NOTE/SPECIALTY CLINIC STANDARD TITLE: TELEPHONE ENCOUNTER NOTE DATE OF NOTE: OCT 07, 2024@10:48 ENTRY DATE: OCT 07, 2024@10:48:34 AUTHOR: KENNETH HUSTON EXP COSIGNER: URGENCY: STATUS: COMPLETED Called and spoke with pt to remind them that they have a FTF appt with the Pain clinic on 10/09/2024 at 930. New location was confirmed /leticia/ KENNETH HUSTON [facility] N[facility]SE PRACTITIONER Signed: 10/07/2024 10:49 KENNETH HUSTON [facility] [facility]
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
--- OUTSIDE RECORDS SUMMARY | 2024-11-20 10:06 | XMS_ITS ---
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 Date/Time Encounter Type Encounter Description Reason Pro vider Source Nov 18, 2024 09:44 AM Outpatient Encounter ADMIN PAT ACTIVTIES (MASNONCT) IHE Encounter Template Text not used by [place] Plan of Treatment: Future Appointments (+ 6 [...] 20 appointments. The data comes from all [place] treatment facilities. Appointment Date/Time Appointment Type Appointme nt Facility Name Nov 20, 2024 10:30 AM [facility] Nov 26, 2024 02:00 PM AM[place]UL[place]ORY [place]RY [place] [facility] [place] [facility] Dec 02, 2024 11:00 AM AM[place]ULATORY [place]ICINE [place] [facility] [place] [facility] Dec 03, 2024 02:00 PM [place] [facility] [place] [facility] Dec 10, 2024 02:00 PM AM[place]UL[place]ORY [place] [facility] [facility] Jan 04, 2025 11:00 AM [place] [facility] Jan 15, 2025 09:45 AM [facility] Active, Pending, and Scheduled Orders This section includes a listing of several types of active, pending, and scheduled orders, including clinic medications orders, diagnostic test orders, procedure orders and consult orders; where the start date of the order is 45 days before the date of the Encounter or 45 days after the date of theEncounter. The data comes from all [place] [facility]. Test Date/Time Test Type Test Details Facility Name Oct 27, 2024 03:39 PM Consult Order [facility] OUTPT Cons Web Database Developer's Choice [facility] Social History: Smoking Status (Most current) and Tobacco Use (All prior to encounter date) This section includes the most current, and the historical, smoking and tobacco- related health factors from the [place] facility where the Encounter took place. Current Smoking Status This section includes the most current smoking, or tobacco-related health factor, from the [place] facility where the Encounter took place. Date/Time Current Smoking Status Comment Facil ity Aug 20, 2024 11:30 AM VA-TOBACCO USE WI 30 MIN OF WAKEUP [facility] Tobacco Use History This section includes a history of the smoking, or tobacco-related health factors, that were collected on or before the date of the Encounter. The data comes from the [place] facility where the Encounter took place. 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 [facility] [place] [facility] Aug 20, 2024 11:30 AM VA-TOBACCO USE MED NO [facility] [place] [facility] Aug 20, 2024 11:30 AM VA-TOBACCO USE WI 30 MIN OF WAKEUP [facility] [place] [facility] Aug 20, 2024 11:30 AM VA-TOBACCO USER EVERY DAY [facility] [place] [facility] Aug 15, 2023 04:34 PM VA-TOBACCO DOESNT USE WI 30 MIN WAKEUP [facility] [place] [facility] Aug 15, 2023 04:34 PM VA-TOBACCO USE > 1 5 LESS THAN 30 YEARS [facility] [place] [facility] Aug 15, 2023 04:34 PM VA-TOBACCO USE ADVICE [place] [facility] [place] [facility] Aug 15, 2023 04:34 PM VA-TOBACCO USE SURVEYOR NO [facility] [place] [place] [facility] Aug 15, 2023 04:34 PM VA-TOBACCO USE MED NO [facility] [place] [place] [facility] Aug 15, 2023 04:34 PM VA-TOBACCO USER EVERY DAY [facility] [place] [facility] Encounter Notes: All associated encounter notes This section contains the clinical notes associated to the Encounter. Date/Time Encounter Note(s) Provider Source Nov 18, 2024 09:44 AM ADMINISTRATIVE NOT E: LOCAL TITLE: CCC: SCHEDULING ADMINISTRATION STANDARD TITLE: ADMINISTRATIVE NOTE DATE OF NOTE: NOV 18, 2024@09:44:37 ENTRY DATE: NOV 18, 2024@09:44:38 AUTHOR: BRIELLE PRADO COSIGNER: URGENCY: STATUS: COMPLETED Patient Demographics Patient Name: JAVI DAMON Patient Primary Phone: [phone] Patient Primary [address]: [address] [place] [id number] Patient : 1970 Patient Age: 54 Call Back Number: Caller/Recipient Relation to Patient: Self Caller Name: JAVI DAMON Administrative Administrative Note Reason: Other Administrative Note Comments: . MEDICATION STATUS: BUSPIRONE HCL TAB 10MG RE: PATIENT STATES MEDICATION IS NOT EFFECTIVE AND HAS STOPPED TAKING MEDICATION OF YESTERDAY, 11/17/2024. PATIENT WANTING PCP TO KNOW AND PAIN MAINAGEMENT PROVIDER. . IMPORTANT: This note was created by [facility] Clinical Contact Center staff. Please do not alert the staff member by adding them as a signer for future communications. Alerts are not monitored by this user. /leticia/ BRIELLE PRADO VISN [facility] Signed: 11/18/2024 09:44 Receipt Acknowledged By: 11/18/2024 11:18 /es/ RICKY JOHN REGISTERED NURSE 11/18/2024 13:28 /es/ PHILIPPE WALLACE MD PHYSICIAN 11/18/2024 09:53 /leticia/ Taya Palomo, programming manager Staff Nurse BRIELLE PRADO CNTL [facility]
--- OUTSIDE RECORDS SUMMARY | 2024-11-20 10:06 | XMS_ITS ---
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 Date/Time Encounter Type Encounter Description Reason Provider Source Oct 27, 2024 01:33 PM Outpatient Encounter SUBSTANCE USE DISORDER IND [facility]ERT [facility] Encounter Template Text not used by [place] [...] 20 appointments. The data comes from all [facility]. Appointment Date/Time Appointment Type Appointme nt Facility Name Oct 28, 2024 10:00 AM AMBULATORY - MEDICINE [place] [facility] Nov 17, 2024 02:45 PM AMBULATORY - MEDICINE [place] [facility] Nov 20, 2024 10:30 AM AMBULATORY - NONE [place] [facility] [place] [facility] Nov 26, 2024 02:00 PM AMBULATORY - PSYCHIATRY [place] [facility] [place] [facility] Dec 02, 2024 11:00 AM AMBULATORY - MEDICINE [place] C [place] [facility] Dec 03, 2024 02:00 PM AMBULATORY - PSYCHIATRY [place] [facility] [place] [facility] Dec 10, 2024 02:00 PM AMBULATORY - PSYCHIATRY [place] [facility] [place] [facility] Jan 04, 2025 11:00 AM AMBULATORY - MEDICINE [facility] [place] [place] [facility] Jan 15, 2025 09:45 AM AMBULATORY - MEDIC[facility] Active, Pending, and Scheduled Orders This section includes a listing of several types of active, pending, and scheduled orders, including clinic medications orders, diagnostic test orders, procedure orders and consult orders; where the start date of the order is 45 days before the date of the Encounter or 45 days after the date of theEncounter. The data comes from all [facility]. Test Date/Time Test Type Test Details Facility Name Oct 27, 2024 03:39 PM Consult Order [facility] Cons Process Development Associate's Choice [facility] Lab Results: +/- 30 days of the encounter This section includes the Chemistry and Hematology Lab Results on record with [place] for the patient. Radiology Reports and Pathology Reports are provided separately, in subsequent sections. Lab Results This section contains the Chemistry/Hematology Results that were resulted 30 days before or 30 daysafter the date of the Encounter. Date/Time Source Result Type Result - Unit Interpretation Reference Range Comment Oct 09, 2024 11:03 AM [facility] METHADONE SCREEN Specimen Type: URINE Comment: YAMEL test are qualitative, any L or H flags only indicate a VA alert was sent. Ordering Provider: PHILIPPE WALLACE Report Released Date/Time: Oct 09, 2024 10:18 AM Reporting Lab: [facility] [address] [facility] [address] Performing Lab: [facility] [address] [facility] [address] METHADONE SCREEN None detected(Nega tive) L Negative Oct 09, 2024 11:03 AM [facility] AMPHETAMINES SCREEN PANEL Specimen Type: URINE [...] Oct 09, 2024 10:18 AM Reporting Lab: [address] [address] Performing Lab: [address] [address] AMPHETAMINES SCREEN NONE-DETECTED None-Detec pranay, Cutoff = 1000 ng/mL PH, YAMEL 5.7 [pH] 4-10 CREATININE, YAMEL 153.27 mg/dL >20 SP.GRAVITY, YAMEL 1.018 1.00 3-1.02 0 Oct 09, 2024 11:03 AM [facility] ALCOHOL, ETHYL URINE PANEL Specimen Type: [...] Oct 09, 2024 10:18 AM Reporting Lab: [address] [place] [address] Performing Lab: [address] [address] ALCOHOL, ETHYL URINE NONE-DETECTED mg/dL NONE-DETEC PRANAY, cutoff = 10 mg/dL PH, YAMEL 5.7 [pH] 4-10 CREATININE, YAMEL 153.27 mg/dL >20 SP.GRAVITY, YAMLE 1.018 1.00 3-1.02 0 Oct 09, 2024 11:03 AM [facility] FENTANYL SCREEN PANEL Specimen Type: URINE [...] Oct 09, 2024 10:18 AM Reporting Lab: [address] [address] Performing Lab: [address] [address] FENTANYL SCREEN NONE-DETECTE D ng/mL Negative: Cutoff = 1.00 ng/mL PH, YAMEL 5.7 [pH] 4-10 CREATININE, YAMEL 155.37 mg/dL >20 SP.GRAVITY, YAMEL 1.018 1.00 3-1.02 0 Oct 09, 2024 11:03 AM [facility] BENZODIAZEPINES SCREEN PANEL Specimen Type: URINE [...] Oct 09, 2024 10:18 AM Reporting Lab: [address] [address] Performing Lab: [address] [address] BENZODIAZEPINES SCREEN POSITIVE HH None-Detec pranay, Cutoff = 200 ng/mL PH, YAMEL 5.7 [pH] 4-10 CREATININE, YAMEL 153.27 mg/dL >20 SP.GRAVITY, YAMEL 1.018 1.00 3-1.02 0 Oct 09, 2024 11:03 AM [facility] BUPRENORPHINE SCREEN PANEL Specimen Type: URINE [...] Oct 09, 2024 10:18 AM Reporting Lab: [address] [address] Performing Lab: [address] [address] BUPRENORPHINE (URINE) NONE-DETECTED None Detected, Cutoff = 10.0 ng/mL PH, YAMEL 5.7 [pH] 4-10 CREATININE, YAMEL 153.27 mg/dL >20 SP.GRAVITY, YAMEL 1.018 1.00 3-1.02 0 Oct 09, 2024 11:03 AM [facility] CANNABINOIDS SCREEN PANEL Specimen Type: URINE [...] Oct 09, 2024 10:18 AM Reporting Lab: [address] [address] Performing Lab: [address] [address] CANNABINOIDS SCREEN POSITIVE HH None-Detec pranay,Cutoff = 50 ng/mL PH, YAMEL 5.7 [pH] 4-10 CREATININE, YAMEL 153.27 mg/dL >20 SP.GRAVITY, YAMEL 1.018 1.00 3-1.02 0 Oct 09, 2024 11:03 AM [facility] OPIATES SCREEN PANEL Specimen Type: URINE [...] Oct 09, 2024 10:18 AM Reporting Lab: [address] [address] Performing Lab: [address] [address] OPIATES SCREEN NONE-DETECTED N one-Detec pranay, Cutoff = 300 ng/mL PH, YAMEL 5.7 [pH] 4-10 CREATININE, YAMEL 153.27 mg/dL >20 SP.GRAVITY, YAMEL 1.018 1.00 3-1.02 0 Oct 09, 2024 11:03 AM [facility] COCAINE SCREEN PANEL Specimen Type: URINE [...] Oct 09, 2024 10:18 AM Reporting Lab: [address] [address] Performing Lab: [address] [address] COCAINE SCREEN NONE-DETECTED N one-Detec pranay,Cutoff = 300 ng/mL PH, YAMEL 5.7 [pH] 4-10 CREATININE, YAMEL 153.27 mg/dL >20 SP.GRAVITY, YAMEL 1.018 1.00 3-1.02 0 Oct 09, 2024 11:03 AM [facility] OXYCODONE SCREEN PANEL Specimen Type: URINE [...] Oct 09, 2024 10:18 AM Reporting Lab: [address] [address] Performing Lab: [address] [address] OXYCODONE SCREEN POSITIVE HH Non e-Detec pranay, [...] VA-TOBACCO USER EVERY DAY [facility] Tobacco Use History This section includes a history of the smoking, or tobacco-related health factors, that were collected on or before the date of the Encounter. The data comes from the [place] facility where the Encounter took place. 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 [facility] [facility] Aug 20, 2024 11:30 AM VA-TOBACCO USE MED NO [place] [facility] [place] [facility] Aug 20, 2024 11:30 AM VA-TOBACCO USE WI 30 MIN OF WAKEUP [place] [facility] [place] [facility] Aug 20, 2024 11:30 AM VA-TOBACCO USER EVERY DAY [place] [facility] [facility] Aug 15, 2023 04:34 PM VA-TOBACCO DOESNT USE WI 30 MIN WAKEUP [place] [facility] [place] [facility] Aug 15, 2023 04:34 PM VA-TOBACCO USE > 1 5 LESS THAN 30 YEARS [place] [facility] [facility] Aug 15, 2023 04:34 PM VA-TOBACCO USE ADVICE [place] [facility] [facility] Aug 15, 2023 04:34 PM VA-TOBACCO USE CONTRACT 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 Date/Time Encounter Note(s) Provider Source Oct 27, 2024 01:33 PM MENTAL HEALTH DIAG NOSTIC STUDY NOTE: LOCAL TITLE: MENTAL HEALTH DIAGNOSTIC STUDY STANDARD TITLE: MENTAL HEALTH DIAGNOSTIC STUDY NOTE DATE OF NOTE: OCT 27, 2024@13:33:15 ENTRY DATE: OCT 27, 2024@13:33:15 AUTHOR: ROBERT MARCOS EXP COSIGNER: URGENCY: STATUS: COMPLETED Brief Addiction Monitor - Revised Date Given: 10/27/2024 Clinician: Robert Marcos Location: [facility] [place] [place]/john : Guanako Mccann SSN: [id number] : [birth year] ([birth year]) Gender: Man Clinical Subscales Use: 0 Items 4, 5, 6. A high score indicates more use, range is 0 to 90. If a patient scores a 1 or greater, it calls for further assessment and clinical attention, e.g., consider addition/change of pharmacotherapy or psychosocial intervention. Risk Factors: 61 Items 1, 2, 3, 8, 11, 15. A high score indicates increased risk, range is 0 to 180. For subscale scores, items with ordinal response options (0-4) were converted to contribute proportionately consistent with items on days of use (0-30). Clinicians are encouraged to consider scores on individual Risk items in offering interventions as indicated during initial treatment planning and following re-assessment. Protective Factors: 37 Items 9, 10, 12, 13, 14, 16. A high score indicates greater protective factors, range is 0 to 180. For subscale scores, items with ordinal response options (0-4) were converted to contribute proportionately consistent with items on days of use (0-30). Clinicians are encouraged to consider scores on individual Protective items in offering interventions as indicated during initial treatment planning and following re-assessment. Questions and Answers A. Date of administration: 10/27/2024 B. Method of administration: Clinician Interview 1. In the past 30 days, how would you say your physical health has been? Poor 2. In the past 30 days, how many nights did you have trouble falling asleep or staying asleep? 15 3. In the past 30 days, how many days have you felt depressed, anxious, angry or very upset throughout most of the day? 8 4. In the past 30 days, how many days did you drink ANY alcohol? 0 5. In the past 30 days, how many days did you have at least 5 drinks (if you are a man) or at least 4 drinks (if you are a woman)? [One drink is considered one shot of hard liquor (1.5 oz.) or 12-ounce can/bottle of beer or 5-ounce glass of wine.] Not asked (due to responses to other questions) 6. In the past 30 days, how many days did you use any illegal or street drugs or abuse any prescription medications? 0 7A. Marijuana (cannabis, pot, weed)? Not asked (due to responses to other questions) 7B. Sedatives and/or Tranquilizers (benzos, Valium, Xanax, Ativan, Ambien, barbs, Phenobarbital, downers, etc.)? Not asked (due to responses to other questions) 7C. Cocaine and/or Crack? Not asked (due to responses to other questions) 7D. Other Stimulants (amphetamine, methamphetamine, Dexedrine, Ritalin, Adderall, speed, crystal meth, ice, etc.)? Not asked (due to responses to other questions) 7E. Opiates (Heroin, Morphine, Dilaudid, Demerol, Oxycontin, oxy, codeine (Tylenol 2,3,4), Percocet, Vicodin, Fentanyl, etc.)? Not asked (due to responses to other questions) 7F. Inhalants (glues, adhesives, nail luxembourgish remover, paint thinner, etc.)? Not asked (due to responses to other questions) 7G. Other drugs (steroids, non-prescription sleep and diet pills, Benadryl, Ephedra, other veyq-hll-pmklijj or unknown medications)? Not asked (due to responses to other questions) 8. In the past 30 days, how much were you bothered by cravings or urges to drink alcohol or use drugs? Slightly 9. How confident are you that you will NOT use alcohol and drugs in the next 30 days? Considerably 10. In the past 30 days, how many days did you attend self-help meetings like AA or NA to support your recovery? 0 11. In the past 30 days, how many days were you in any situations or with any people that might put you at an increased risk for using alcohol or drugs (i.e., around risky people, places or things )? 0 12. Does your islam or spirituality help support your recovery? Moderately 13. In the past 30 days, how many days did you spend much of the time at work, school, or doing volunteer work? 0 14. Do you have enough income (from legal sources) to pay for necessities such as housing, transportation, food and clothing for yourself and your dependents? No 15. In the past 30 days, how much have you been bothered by arguments or problems getting along with any family members or friends? Not at all 16. In the past 30 days, how many days did you contact or spend time with any family members or friends who are supportive of your recovery? 0 17. How satisfied are you with your progress toward achieving your recovery goals? Moderately Information contained in this note is based on a self-report assessment and is not sufficient to use alone for diagnostic purposes. Assessment results should be verified for accuracy and used in conjunction with other diagnostic activities and procedures. /leticia/ [facility] Nurse Practitioner Manager Signed: 10/27/2024 15:37 ROBERT MARCOS [place] [facility]
--- OUTSIDE RECORDS SUMMARY | 2024-11-20 10:06 | XMS_ITS | Encounter Summary ---
Author Name [place] Address [address] [place] [address] Care Team Providers Care Bush Hog Operator Name Role Phone JAVI TYLER Primary [...] Travis [facility] 2017 [facility] T CARE NON-B ILL 2024 [facility] [id number] JAVI MURGUIA PATIENT Selected Encounter This section includes the information on record at [place] for the Encounter. Date/Time Encounter Type Encounter Description Reason Pro vider Source Nov 16, 2024 10:42 AM Outpatient Encounter PAIN CLINIC IHE Encounter Template Text not used by [place] Plan of Treatment: Future Appointments (+ 6 [...] 20 appointments. The data comes from all [facility]. Appointment Date/Time Appointment Type Appointme nt Facility Name Nov 17, 2024 02:45 PM AMBULATORY - MEDICINE [place] [facility] [place] [facility] Nov 20, 2024 10:30 AM AMBULATORY - NONE [place] [facility] [place] [facility] Nov 26, 2024 02:00 PM AMBULATORY - PSYCHIATRY [place] [facility] [place] [facility] Dec 02, 2024 11:00 AM AMBULATORY - MEDICINE [place] [facility] [place] [facility] Dec 03, 2024 02:00 PM AMBULATORY - PSYCHIATRY [place] [facility] [place] [facility] Dec 10, 2024 02:00 PM AMBULATORY - PSYCHIATRY [place] [facility] [place] [facility] Jan 04, 2025 11:00 AM AMBULATORY - MEDICINE [place] [facility] [place] [facility] Jan 15, 2025 09:45 AM [facility] Active, Pending, and Scheduled Orders This section includes a listing of several types of active, pending, and scheduled orders, including clinic medications orders, diagnostic test orders, procedure orders and consult orders; where the start date of the order is 45 days before the date of the Encounter or 45 days after the date of theEncounter. The data comes from all [facility]. Test Date/Time Test Type Test Details Facility Name Oct 27, 2024 03:39 PM Consult Order [facility] Cons Offshore Wind Turbine Technician's Choice [facility] Social History: Smoking Status (Most current) and Tobacco Use (All prior to encounter date) This section includes the most current, and the historical, smoking and tobacco- related health factors from the [place] facility where the Encounter took place. Current Smoking Status This section includes the most current smoking, or tobacco-related health factor, from the [place] facility where the Encounter took place. Date/Time Current Smoking Status Comment Facil ity Aug 20, 2024 11:30 AM VA-TOBACCO USER EVERY DAY [facility] Tobacco Use History This section includes a history of the smoking, or tobacco-related health factors, that were collected on or before the date of the Encounter. The data comes from the [place] facility where the Encounter took place. 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 [facility] [place] [facility] Aug 20, 2024 11:30 AM VA-TOBACCO USE MED NO [facility] [place] [facility] Aug 20, 2024 11:30 AM VA-TOBACCO USE WI 30 MIN OF WAKEUP [facility] [place] [facility] Aug 20, 2024 11:30 AM VA-TOBACCO USER EVERY DAY [facility] [place] [facility] Aug 15, 2023 04:34 PM VA-TOBACCO DOESNT USE WI 30 MIN WAKEUP [facility] [place] [facility] Aug 15, 2023 04:34 PM VA-TOBACCO USE > 1 5 LESS THAN 30 YEARS [facility] [place] [facility] Aug 15, 2023 04:34 PM VA-TOBACCO USE ADVICE [facility] [place] [facility] Aug 15, 2023 04:34 PM VA-TOBACCO USE 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 Date/Time Encounter Note(s) Provider Source Nov 16, 2024 10:42 AM TELEPHONE ENCOUNTE R NOTE: LOCAL TITLE: TELEPHONE NOTE/SPECIALTY CLINIC STANDARD TITLE: TELEPHONE ENCOUNTER NOTE DATE OF NOTE: NOV 16, 2024@10:42 ENTRY DATE: NOV 16, 2024@10:42:52 AUTHOR: KENNETH HUSTON EXP COSIGNER: URGENCY: STATUS: COMPLETED Called and spoke with pt to remind them that they have a FTF appt with the Pain clinic on 11/17/2024 at 245. phone disconnected, keno writer called back and lvm to confirm appt /es/ KENNETH HUSTON ADVANCED JANITORIAL CLEANER Signed: 11/16/2024 10:44 KENNETH HUSTON [place] [facility]
--- OUTSIDE RECORDS SUMMARY | 2024-11-20 10:06 | XMS_ITS | Encounter Summary ---
Author Name [place] Address [address] [place] [address] Care Team Providers Care Detail Assembler Name Role Phone JAVI TYLER Primary Care [...] Travis's Name Patient's Relationship to Policy Travis [facility] 2017 [facility] T CARE NON-B ILL 2024 [facility] [id number] JAVI MURGUIA PATIENT Selected Encounter This section includes the information on record at [place] for the Encounter. Date/Time Encounter Type Encounter Description Reason Pro vider Source Nov 18, 2024 10:13 AM Outpatient Encounter PAIN CLINIC IHE Encounter [...] 20 appointments. The data comes from all [facility]. Appointment Date/Time Appointment Type Appointme nt Facility Name Nov 20, 2024 10:30 AM [facility] Nov 26, 2024 02:00 PM [facility] [place] [facility] [place] [facility] Dec 02, 2024 11:00 AM AMBULATORY - MEDICINE [facility] N[facility]L TRN [facility] Dec 03, 2024 02:00 PM [facility] Dec 10, 2024 02:00 PM AMBUL[facility]ORY - [facility]ATRY [place] [facility] Jan 04, 2025 11:00 AM AMBULATORY - MEDICINE [facility] NTRL TRN [facility] Jan 15, 2025 09:45 AM [facility] Active, Pending, and Scheduled Orders This section includes a listing of several types of active, pending, and scheduled orders, including clinic medications orders, diagnostic test orders, procedure orders and consult orders; where the start date of the order is 45 days before the date of the Encounter or 45 days after the date of theEncounter. The data comes from all [facility]. Test Date/Time Test Type Test Details Facility Name Oct 27, 2024 03:39 PM Consult [facility]PT Cons Restaurant Area Manager's Choice [facility] Social History: Smoking Status (Most current) [...] 2024 11:30 AM VA-TOBACCO USER EVERY DAY [facility] Tobacco Use History This section includes a history of the smoking, or tobacco-related health factors, that were collected on or before the date of the Encounter. The data comes from the [place] facility where the Encounter took place. 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 [facility] [place] [facility] Aug 20, 2024 11:30 AM VA-TOBACCO USE MED NO [facility] [place] [facility] Aug 20, 2024 11:30 AM VA-TOBACCO USE WI 30 MIN OF WAKEUP [facility] [place] [facility] Aug 20, 2024 11:30 AM VA-TOBACCO USER EVERY DAY [facility] [place] [facility] Aug 15, 2023 04:34 PM VA-TOBACCO DOESNT USE WI 30 MIN WAKEUP [facility] [place] [facility] Aug 15, 2023 04:34 PM VA-TOBACCO USE > 1 5 LESS THAN 30 YEARS [facility] [place] [facility] Aug 15, 2023 04:34 PM VA-TOBACCO USE ADVICE [facility] [place] [facility] Aug 15, 2023 04:34 PM 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 Date/Time Encounter Note(s) Provider Source Nov 18, 2024 10:13 AM TELEPHONE ENCOUNTE R NOTE: LOCAL TITLE: TELEPHONE NOTE/SPECIALTY CLINIC STANDARD TITLE: TELEPHONE ENCOUNTER NOTE DATE OF NOTE: NOV 18, 2024@10:13 ENTRY DATE: NOV 18, 2024@10:14:02 AUTHOR: KENNETH HUSTON EXP COSIGNER: URGENCY: STATUS: COMPLETED vet called stating he is stopping Buspirone medication FYI. /leticia/ KENNETH HUSTON ADVANCED ROUTER OPERATOR RADIAL Signed: 11/18/2024 10:16 Receipt Acknowledged By: 11/18/2024 13:29 /leticia/ PHILIPPE WALLACE MD PHYSICIAN KENNETH HUSTON [place] [facility]
--- OUTSIDE RECORDS SUMMARY | 2024-11-20 10:06 | XMS_ITS | Encounter Summary ---
Author Name [facility] [place] Address [address] [place] [address] Care Team Providers Care Retail Specialist Name Role Phone JAVI TYLRE Primary Care Provider Unav ailable Insurance Providers: [...] Patient's Relationship to Policy Travis [facility] 2017 [facility] T CARE NON-B ILL 2024 [facility] [id number] [phone] JAVI MURGUIA PATIENT Selected Encounter This section includes the information on record at [place] for the Encounter. Date/Time Encounter Type Encounter Description Reason Pro vider Source Sep 25, 2024 12:00 AM Outpatient Encounter EVENT (HISTORICAL) [...] 20 appointments. The data comes from all [place] treatment facilities. Appointment Date/Time Appointment Type Appointme nt Facility Name Oct 09, 2024 09:30 AM AMBULATORY - MEDICINE [facility] [place] [facility] Oct 15, 2024 04:00 PM AMBULATORY - REHAB MEDICIN E [facility] [place] [facility] Oct 27, 2024 01:00 PM AMBULATORY - PSYCHIATRY [facility] [place] [facility] Oct 28, 2024 10:00 AM AMBULATORY - MEDICINE [facility] [place] [facility] Nov 17, 2024 02:45 PM AMBULATORY - MEDICINE [facility] [place] [facility] Nov 20, 2024 10:30 AM AMBULATORY - NONE [facility] [place] [facility] Nov 26, 2024 02:00 PM AMBULATORY - PSYCHIATRY [facility] [place] [facility] Dec 02, 2024 11:00 AM AMBULATORY - MEDICINE [facility] [place] [facility] Dec 03, 2024 02:00 PM AMBULATORY - PSYCHIATRY [facility] [place] [facility] Dec 10, 2024 02:00 PM AMBULATORY - PSYCHIATRY [facility] [place] [facility] Jan 04, 2025 11:00 AM AMBULATORY - MEDICINE [place] [facility] [place] [facility] Jan 15, 2025 09:45 AM AMBULATORY - MEDICINE [place] [facility] [place] [facility] Active, Pending, and Scheduled Orders This section includes a listing of several types of active, pending, and scheduled orders, including clinic medications orders, diagnostic test orders, procedure orders and consult orders; where the start date of the order is 45 days before the date of the Encounter or 45 days after the date of theEncounter. The data comes from all [place] treatment facilities. Test Date/Time Test Type Test Details Facility Name Aug 20, 2024 12:15 PM Consult Order COMMUNITY CARE-PULMONARY Cons It Security Engineer's Choice [facility] [place] [facility] Aug 20, 2024 12:15 PM Consult Order COMMUNITY CARE-COLONOSCOPY SURVEILLANCE Cons It Security Engineer's Choice [facility] [place] [facility] Aug 20, 2024 12:15 PM Consult Order COMMUNITY CARE-BAR EXAMINER Cons It Security Engineer's Choice [facility] [place] [facility] Aug 20, 2024 12:15 PM Consult Order COMMUNITY CARE-UROLOGY Cons It Security [facility]'s [facility] [place] [facility] Oct 27, 2024 03:39 PM Consult [facility] Cons It Security Engineer's Choice [facility] Lab Results: +/- 30 days of [...] Range Comment Oct 09, 2024 11:03 AM [facility] METHADONE SCREEN Specimen Type: URINE Comment: YAMEL test are qualitative, any L or H flags only indicate a VA alert was sent. Ordering Provider: PHILIPPE WALLACE Report Released Date/Time: Oct 09, 2024 10:18 AM Reporting Lab: [facility] [address] [facility] [facility] [address] Performing Lab: [facility] [address] [address] METHADONE SCREEN None detected(Nega tive) L Negative Oct 09, 2024 11:03 AM [facility] ALCOHOL, ETHYL URINE PANEL Specimen Type: [...] Oct 09, 2024 10:18 AM Reporting Lab: [facility] [address] [facility] [address] Performing Lab: [address] [address] ALCOHOL, ETHYL URINE NONE-DETECTED mg/dL NONE-DETEC PRANAY, cutoff = 10 mg/dL PH, YAMEL 5.7 [pH] 4-10 CREATININE, YAMEL 153.27 mg/dL >20 SP.GRAVITY, YAMEL 1.018 1.00 3-1.02 0 Oct 09, 2024 11:03 AM [facility] AMPHETAMINES SCREEN PANEL Specimen Type: URINE [...] 09, 2024 10:18 AM Reporting Lab: [address] [address] Performing Lab: [address] [address] AMPHETAMINES SCREEN NONE-DETECTED None-Detec pranay, Cutoff = 1000 ng/mL PH, YAMEL 5.7 [pH] 4-10 CREATININE, YAMEL 153.27 mg/dL >20 SP.GRAVITY, YAMEL 1.018 1.00 3-1.02 0 Oct 09, 2024 11:03 AM [facility] FENTANYL SCREEN PANEL Specimen Type: URINE [...] 09, 2024 10:18 AM Reporting Lab: [address] [address] Performing Lab: [address] [address] FENTANYL SCREEN NONE-DETECTE D ng/mL Negative: Cutoff = 1.00 ng/mL PH, YAMEL 5.7 [pH] 4-10 CREATININE, YAMEL 155.37 mg/dL >20 SP.GRAVITY, YAMEL 1.018 1.00 3-1.02 0 Oct 09, 2024 11:03 AM [facility] BENZODIAZEPINES SCREEN PANEL Specimen Type: URINE [...] 09, 2024 10:18 AM Reporting Lab: [address] [address] Performing Lab: [place] [id number] BENZODIAZEPINES SCREEN POSITIVE HH None-Detec pranay, Cutoff = 200 ng/mL PH, YAMEL 5.7 [pH] 4-10 CREATININE, YAMEL 153.27 mg/dL >20 SP.GRAVITY, YAMEL 1.018 1.00 3-1.02 0 Oct 09, 2024 11:03 AM [facility] CANNABINOIDS SCREEN PANEL Specimen Type: URINE [...] 09, 2024 10:18 AM Reporting Lab: [address] [address] Performing Lab: [address] [address] CANNABINOIDS SCREEN POSITIVE HH None-Detec pranay,Cutoff = 50 ng/mL PH, YAMEL 5.7 [pH] 4-10 CREATININE, YAMEL 153.27 mg/dL >20 SP.GRAVITY, YAMEL 1.018 1.00 3-1.02 0 Oct 09, 2024 11:03 AM [facility] BUPRENORPHINE SCREEN PANEL Specimen Type: URINE [...] 09, 2024 10:18 AM Reporting Lab: [address] [address] Performing Lab: [address] BUPRENORPHINE (URINE) NONE-DETECTED None Detected, Cutoff = 10.0 ng/mL PH, YAMEL 5.7 [pH] 4-10 CREATININE, YAMEL 153.27 mg/dL >20 SP.GRAVITY, YAMEL 1.018 1.00 3-1.02 0 Oct 09, 2024 11:03 AM [facility] COCAINE SCREEN PANEL Specimen Type: URINE [...] 09, 2024 10:18 AM Reporting Lab: [address] [address] Performing Lab: [address] [address] COCAINE SCREEN NONE-DETECTED N one-Detec pranay,Cutoff = 300 ng/mL PH, YAMEL 5.7 [pH] 4-10 CREATININE, YAMEL 153.27 mg/dL >20 SP.GRAVITY, YAMEL 1.018 1.00 3-1.02 0 Oct 09, 2024 11:03 AM [facility] OPIATES SCREEN PANEL Specimen Type: URINE [...] 09, 2024 10:18 AM Reporting Lab: [address] [address] Performing Lab: [address] [address] OPIATES SCREEN NONE-DETECTED N one-Detec pranay, Cutoff = 300 ng/mL PH, YAMEL 5.7 [pH] 4-10 CREATININE, YAMEL 153.27 mg/dL >20 SP.GRAVITY, YAMEL 1.018 1.00 3-1.02 0 Oct 09, 2024 11:03 AM [facility] OXYCODONE SCREEN PANEL Specimen Type: URINE [...] Oct 09, 2024 10:18 AM Reporting Lab: [facility] [address] [facility] [address] Performing Lab: [place] [facility] [address] [facility] [address] OXYCODONE SCREEN POSITIVE HH Non e-Detec pranay, [...] [place]-TOBACCO USE [place] 30 MIN [facility]UP [facility] Tobacco Use History This section includes a history of the smoking, or tobacco-related health factors, that were collected on or before the date of the Encounter. The data comes from the [place] facility where the Encounter took place. 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 [facility] [place] [facility] Aug 20, 2024 11:30 AM VA-TOBACCO USE MED NO [place] [facility] [facility] Aug 20, 2024 11:30 AM VA-TOBACCO USE [place] 30 MIN OF WAKEUP [place] [facility] [place] [facility] Aug 20, 2024 11:30 AM VA-TOBACCO USER EVERY DAY [facility] [place] [facility] Aug 15, 2023 04:34 PM VA-TOBACCO DOESNT USE WI 30 MIN WAKEUP [place] [facility] [place] [facility] Aug 15, 2023 04:34 PM VA-TOBACCO USE > 1 5 LESS THAN 30 YEARS [place] [facility] [place] [facility] Aug 15, 2023 04:34 PM VA-TOBACCO USE ADVICE [facility] [place] [facility] Aug 15, 2023 04:34 PM VA-TOBACCO USE BURRER MARKER AXLE NO [place] [facility] [place] [facility] Aug 15, 2023 04:34 PM VA-TOBACCO USE MED NO [place] [facility] [place] [facility] Aug 15, 2023 04:34 PM VA-TOBACCO USER EVERY DAY [facility] Encounter Notes: All associated encounter notes This section contains the clinical notes associated to the Encounter. Date/Time Encounter Note(s) Provider Source Sep 25, 2024 12:00 AM NONVA NOTE: LOCAL TITLE: NON-VA HOSPITALIZATIONS/ER STANDARD TITLE: NONVA NOTE DATE OF NOTE: SEP 25, 2024 ENTRY DATE: OCT 27, 2024@13:36:45 AUTHOR: ALIDA STALLINGS EXP COSIGNER: URGENCY: STATUS: COMPLETED VistA Imaging - Scanned Document SCANNED DOCUMENT SIGNATURE NOT REQUIRED Electronically Filed: 10/27/2024 by: ALIDA STALLINGS CHAIN MACHINE OPERATOR ALIDA STALLINGS [facility]
--- OUTSIDE RECORDS SUMMARY | 2024-11-20 10:06 | XMS_ITS ---
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 Date/Time Encounter Type Encounter Description Reason Provider Source Oct 28, 2024 10:00 AM OFFICE O/P EST LOW 20 MIN [facility] TREATMENT ICD-10-CM G89.21 Chronic pain due to trauma KELLE MUNGUIA E Encounter Template Text not used by MD Assessments - Encounter Diagnoses This section includes the primary and secondary diagnoses documented for the Encounter. Date/Time Primary/Secondary Diagnosis Diagnosis Name Provider Source Oct 28, 2024 04:04 PM PRIMARY Chronic pain due to trauma GAUNYA,KELLE PHER M [facility] [place] [facility] Oct 28, 2024 04:04 PM SECONDARY Alcohol use, unspecified, in remission GAUNYA,KELLE PHER M [facility] [place] [facility] Oct 28, 2024 04:04 PM SECONDARY Anxiety disorder, unspecified GAUNYA,KELLE PHER M [facility] [place] [facility] Oct 28, 2024 04:04 PM SECONDARY Cervicalgia GAUNYA,KELLE PHER M [facility] [place] [facility] Oct 28, 2024 04:04 PM SECONDARY Depression, unspecified GAUNYA,KELLE PHER M [facility] [place] [facility] Oct 28, 2024 04:04 PM SECONDARY Low back pain, unspecified GAUNYA,KELLE PHER M [facility] [place] [facility] Oct 28, 2024 04:04 PM SECONDARY Post-traumatic stress disorder, unspecified GAUNYA,KELLE PHER M [facility] [place] [facility] Plan of Treatment: Future Appointments (+ 6 months) and Future Tests (+/- 45 days) The Plan of Treatment section includes future care activities [facility] the [facility] This section includes future appointments [...] - MEDICINE [facility] [place] [facility] Nov 20, 2024 10:30 AM AMBULATORY - NONE [facility] [place] [facility] Nov 26, 2024 02:00 PM AMBULATORY - PSYCHIATRY [facility] [place] [facility] Dec 02, 2024 11:00 AM AMBULATORY - MEDICINE [facility] [place] [facility] Dec 03, 2024 02:00 PM AMBULATORY - PSYCHIATRY [facility] [place] [facility] Dec 10, 2024 02:00 PM AMBULATORY - PSYCHIATRY [facility] [place] [facility] Jan 04, 2025 11:00 AM AMBULATORY - MEDICINE [facility] [place] [facility] Jan 15, 2025 09:45 AM AMBULATORY - MEDICINE [facility] Active, Pending, and Scheduled Orders This [...] PM Consult Order [facility] Cons Insurance Agency Manager's Choice [facility] Lab Results: +/- 30 days of [...] Comment Oct 09, 2024 11:03 AM [facility] METHADONE SCREEN Specimen Type: URINE Comment: YAMEL test are qualitative, any L or H flags only indicate a VA alert was sent. Ordering Provider: PHILIPPE WALLACE Report Released Date/Time: Oct 09, 2024 10:18 AM Reporting Lab: [facility] [address] [facility] [facility] [address] Performing Lab: [facility] [address] [facility] [facility] [address] METHADONE SCREEN None detected(Nega tive) L Negative Oct 09, 2024 11:03 AM [facility] AMPHETAMINES SCREEN PANEL Specimen Type: URINE [...] Oct 09, 2024 10:18 AM Reporting Lab: [address] [address] Performing Lab: [address] [address] AMPHETAMINES SCREEN NONE-DETECTED None-Detec pranay, Cutoff = 1000 ng/mL PH, YAMEL 5.7 [pH] 4-10 CREATININE, YAMEL 153.27 mg/dL >20 SP.GRAVITY, YAMEL 1.018 1.00 3-1.02 0 Oct 09, 2024 11:03 AM [facility] ALCOHOL, ETHYL URINE PANEL Specimen Type: [...] Oct 09, 2024 10:18 AM Reporting Lab: [address] [address] Performing Lab: [address] [address] ALCOHOL, ETHYL URINE NONE-DETECTED mg/dL NONE-DETEC PRANAY, cutoff = 10 mg/dL PH, YAMEL 5.7 [pH] 4-10 CREATININE, YAMEL 153.27 mg/dL >20 SP.GRAVITY, YAMEL 1.018 1.00 3-1.02 0 Oct 09, 2024 11:03 AM [facility] FENTANYL SCREEN PANEL Specimen Type: URINE [...] Oct 09, 2024 10:18 AM Reporting Lab: [address] [address] Performing Lab: [address] [address] FENTANYL SCREEN NONE-DETECTE D ng/mL Negative: Cutoff = 1.00 ng/mL PH, YAMEL 5.7 [pH] 4-10 CREATININE, YAMEL 155.37 mg/dL >20 SP.GRAVITY, YAMEL 1.018 1.00 3-1.02 0 Oct 09, 2024 11:03 AM [facility] BENZODIAZEPINES SCREEN PANEL Specimen Type: URINE [...] Oct 09, 2024 10:18 AM Reporting Lab: [address] [address] Performing Lab: [address] [address] BENZODIAZEPINES SCREEN POSITIVE HH None-Detec pranay, Cutoff = 200 ng/mL PH, YAMEL 5.7 [pH] 4-10 CREATININE, YAMEL 153.27 mg/dL >20 SP.GRAVITY, YAMEL 1.018 1.00 3-1.02 0 Oct 09, 2024 11:03 AM [facility] BUPRENORPHINE SCREEN PANEL Specimen Type: URINE [...] Oct 09, 2024 10:18 AM Reporting Lab: [address] [address] Performing Lab: [address] [address] BUPRENORPHINE (URINE) NONE-DETECTED None Detected, Cutoff = 10.0 ng/mL PH, YAMEL 5.7 [pH] 4-10 CREATININE, YAMEL 153.27 mg/dL >20 SP.GRAVITY, YAMEL 1.018 1.00 3-1.02 0 Oct 09, 2024 11:03 AM [facility] CANNABINOIDS SCREEN PANEL Specimen Type: URINE [...] Oct 09, 2024 10:18 AM Reporting Lab: [address] [address] Performing Lab: [address] [address] CANNABINOIDS SCREEN POSITIVE HH None-Detec pranay,Cutoff = 50 ng/mL PH, YAMEL 5.7 [pH] 4-10 CREATININE, YAMEL 153.27 mg/dL >20 SP.GRAVITY, YAMEL 1.018 1.00 3-1.02 0 Oct 09, 2024 11:03 AM [facility] OPIATES SCREEN PANEL Specimen Type: URINE [...] Oct 09, 2024 10:18 AM Reporting Lab: [address] [address] Performing Lab: [address] [address] OPIATES SCREEN NONE-DETECTED N one-Detec pranay, Cutoff = 300 ng/mL PH, YAMEL 5.7 [pH] 4-10 CREATININE, YAMEL 153.27 mg/dL >20 SP.GRAVITY, YAMEL 1.018 1.00 3-1.02 0 Oct 09, 2024 11:03 AM [facility] COCAINE SCREEN PANEL Specimen Type: URINE [...] Oct 09, 2024 10:18 AM Reporting Lab: [address] [address] Performing Lab: [address] [address] COCAINE SCREEN NONE-DETECTED N one-Detec pranay,Cutoff = 300 ng/mL PH, YAMEL 5.7 [pH] 4-10 CREATININE, YAMEL 153.27 mg/dL >20 SP.GRAVITY, YAMEL 1.018 1.00 3-1.02 0 Oct 09, 2024 11:03 AM [facility] OXYCODONE SCREEN PANEL Specimen Type: URINE [...] 09, 2024 10:18 AM Reporting Lab: [facility] [address] [facility] [address] Performing Lab: [facility] [address] [address] OXYCODONE SCREEN POSITIVE HH Non e-Detec pranay, [...] 2024 11:30 AM VA-TOBACCO USER EVERY DAY [facility] Tobacco Use History This section includes a history of the smoking, or tobacco-related health factors, that were collected on or before the date of the Encounter. The data comes from the MD facility where the Encounter took place. Date/Time Smoking Status/Tobacco Use Comment F acility Aug 20, 2024 11:30 AM VA-TOBACCO USE ADVICE [facility] Aug 20, 2024 11:30 AM VA-TOBACCO USE [facility]UR[facility]IC[facility] Aug 20, 2024 11:30 AM [facility] Aug 20, 2024 11:30 AM VA-TOBACCO USE WI [facility] Aug 20, 2024 11:30 AM [facility]TOBACCO USER EVERY DAY [facility] Aug 15, 2023 04:34 PM VA-TOBACCO DOESNT USE WI 30 MIN WAKEUP [facility] [place] [facility] Aug 15, 2023 04:34 PM VA-TOBACCO USE > 1 5 LESS THAN 30 YEARS [facility] [place] [facility] Aug 15, 2023 04:34 PM VA-TOBACCO USE ADVICE [facility] [place] [facility] Aug 15, 2023 04:34 PM VA-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 Date/Time Encounter Note(s) Provider Source Oct 28, 2024 03:57 PM ACUPUNCTURE CONSULT: LOCAL TITLE: CONSULT REPORT/ACUPUNCTURE STANDARD TITLE: ACUPUNCTURE CONSULT DATE OF NOTE: OCT 28, 2024@15:57 ENTRY DATE: OCT 28, 2024@15:57:19 AUTHOR: MANPREET MUNGUIA EXP COSIGNER: URGENCY: STATUS: COMPLETED JAVI DAMON is a 54 WHITE MALE who presents with Low back pain, chronic pain in shoulders knees and elbows. Active Problem Benign Prostatic Hypertrophy with O 08/20/2024 JAVI TYLER Colonic polyp K63.5 08/20/2024 JAVI TYLER COPD - Chronic Obstructive Pulmonar 08/20/2024 JAVI TYLER HTN - Hypertension ([facility] [id number]) I 08/20/2024 JAVI TYLER Exposure to potentially hazardous s 11/26/2023 KD BARRERA Erectile Dysfunction ([facility] [id number] 11/13/2023 KD BARRERA Neck Pain ([facility] [id number]) M54.2 11/13/2023 KD BARRERA Pain of Right Knee ([facility] [id number] 11/13/2023 KD BARRERA Shoulder Pain ([facility] [id number]) M25.51 11/13/2023 KD BARRERA Low testosterone R89.1 11/13/2023 KD BARRERA GERD - Gastro-Esophageal Reflux Dis 11/13/2023 KD BARRERA Headache ([facility] [id number]) R51.9 11/13/2023 KD BARRERA Allergic Rhinitis ([facility] [id number]) J3 11/13/2023 KD BARRERA Concussion with loss of consciousne 11/13/2023 KD BARRERA Asthma ([facility] [id number]) J45.909 08/20/2024 JAVI TYLER - Sleep apnoea syndrome G47.33 04/19/2023 PHILIPPE WALLACE Chronic pain G89.21 04/09/2023 PHILIPPE WALLACE Alcohol dependence F10.20 01/11/2023 ROBERT MORA Tobacco abuse Z72.0 11/13/2023 ROBERT MORA Posttraumatic stress disorder F43.1 05/09/2023 JENNI GIRON Date Oct CC / HPI - [place] presents with widespread musculoskeletal pain. [place] states neck shoulders and knees are the most painful and then elbows and low back pain with a focus on left side. states he has a 6/10 average pain level that becomes worse with activity. states he has difficulty getting dressed and showering. [place] states pain disturbs his sleep although he reports that his sleep has improved with anxiety medications. [place] states he also struggles with depression. [place] states his appetite is off and sometimes he will not eat for a day or 2. states that his taste is off and food is not appealing. states that with that he was on OxyContin for several years which seem to be managing his pain well and he was not over doing his medications but he was switched off of OxyContin by his prescribing physician. [place] feels frustrated that current medications are not controlling his pain. also has history of traumatic brain injury and has history of migraines that affected the left side of his head. states that his migraines became less prominent as he aged but in 2018 he had a sudden increase in the frequency and intensity of his headaches. has history of alcohol abuse. TREATMENT HISTORY of Main Complaint: CLIENT GOALS FOR TREATMENT: Reduced overall pain. PAST MEDICAL HISTORY: See co-morbidity in Assessment PAST SURGICAL HISTORY: REVIEW OF SYSTEMS: Except for what is mentioned in the HPI/SYMPTOMS there are no complaint of: Headache, Radicalgia, weakness, fever, sore throat, chest pain, shortness of breath, joint swelling, dizziness, vision loss, unexplained weight loss, bowel or bladder incontinence/retention or saddle anesthesia OBJECTIVE: Unless otherwise noted noted in HPI/Symptoms. General: . Patient in no apparent distress . appropriate attire . here with equanimity Skin: . No effusion/edema . No ecchymosis . No erythema MUSCULOSKELETAL: Observed . no signs of trauma Ambulation . independent ambulation . non-antalgic ambulation Physical Ability to Transfer: . Patient was able to get on/off the treatment table unassisted. Posture . no antalgic posture Extremities . functional AROM BACK / SPINE . no overt deformity of spine . no pelvic unleveling NEUROLOGIC: Mentation . A&Ox3 Gait [X]antalgic [ ]non-antalgic [ ]ataxic [ ]Wheel Chair, Walker, Cane ASSESSMENT / SUMMARY Affected Channel(s)/OM Dx: Qi and blood stagnation due to trauma Medical Decision Making (MDM) [ ]Straightforward o [ ]Minimal = 1 self-limited or minor problem [ ]Low o - 2 or more self-limited or minor problems o - 1 stable chronic illness o - 1 acute, uncomplicated illness or injury [X]Moderate o - 1 or more chronic illness with exacerbation, progression or side effect from treatment o - 2 or more stable chronic illnesses o - 1 undiagnosed new problem w/uncertain prognosis o - 1 acute illness w/ systemic symptoms o - 1 acute complicated injury [ ]High o - 1 or more chronic illnesses w/ severe exacerbation, progression, or side effect from treatment o - 1 acute or chronic illness/injury that poses threat to life or bodily function PLAN / RECOMMENDATION: Weekly acupuncture as schedule permits 4-6 visits then assess Follow-up visit [X]1 WEEK [ ]2 WEEKS [ ]3 WEEKS [ ]1 MONTH FREQUENCY OF CARE [X]1 X WEEKLY, [ ]2 X WEEKLY [X]Bi-Weekly, [ ]Monthly, [ ]Other Seeking: [ ]access to acupuncture for: [X]pain control [X]Stress/anxiety reduction, [ ]Depression [ ]Other mental health: [X]Addiction/dependence: [ ]Nicotine [X]Alcohol [ ]Chemical [ ]Other: Patient Education: [X]Encouraged self-care management using active therapies. [ ](exercises, therapeutic movement, PT, biofeedback, smoking cessation, health coaching) to manage chronic pain while engaging passive therapies (acupuncture / chiropractic / massage) to manage [ ]acute / [ ]subacute (persistent) pain. [ ]Counseled not to view exercise as an analgesic, but as modalities to improve flexibility, strength, and conditioning. [ ]Additionally, counseled to stay within tolerances when doing daily tasks / exercise i.e. use pacing to moderate aggravation of sx. [ ]Attempt 2 to 3 times per week [ ]Modify as needed [ ]Refrain from exercises if aggravation or new symptoms appear [ ]Do not use acupressure over area where you have a wound, severe swelling or lump, active infection, recent blood clots, rash, or areas that are numb. However, you may use other points away from these areas. If you take medications to thin your blood, or have a bleeding or clotting disorder, only use light pressure. [ ]Self-care management encouraged by focus on self-care strategies to improve flexibility, strength and conditioning, not to view exercise as an analgesic yet modalities to improve gross motion as chronic pain undermines core movements. [ ]Discussed expected course of condition and self-care management via weight-management, healthy diet, regular exercise within patient tolerance and pragmatic use of passive modalities for short-term relief stressing not to solely rely on passive modalities. Also counseled on non-pharmacological therapies/treatments such as acupuncture / acupressure on acute episodes of pain. Furthermore, consider exercise therapy, yoga, qigong, annie chi, relaxation technique and/or cognitive-behavior methodologies regarding chronic and/or persistent sub-acute pain. INSTRUCTIONS: [X]Rest, hydrate, eat [ ]BFA Patient Information Home Removal - [ ]Remove after 3 days and dispose of in approved sharpes container or comparable container - [ ]or return to clinic or PCP in three days to remove auricular needles - [ ]Pyonex Needle: remove prior to bathing per decorator store INFORMED CONSENT: Oral Consent obtained on Oct The patient was positioned comfortably. Oral consent was obtained. There was no evidence of infection at the site of needle insertions. Time out was conducted by Manpreet Munguia L.Ac. Correct patient was identified using two identifiers. Acupuncture treatment including risk/side effects, benefits, alternatives to treatment and the management plan were reviewed with the patient who expressed understanding and agreed. Correct procedure verified by the patient and the provider. PROCEDURES: Number of Acupuncture Sets: [ ]1 [X]2 [ ]3 Set 1 TIME SPENT: 15 Minutes Position:[X]Prone [ ]Supine [ ]Left Side [ ] Right Side [ ]Seated Chair [ ] Massage Chair Points used: [X]Ear:[ ]Left [ ]Right [ ]Bilateral [X]BFA Protocol, [ ]NADA Protocol, [ ]ATP Protocol [ ]Ear: [ ]Martinez Men, [ ]Point Zero, [ ]Sympathetic [X]Ear Other:Standard acupuncture needles not retained [ ]Head: [ ]Neck: [ ]Torso: [ ]Hip / Glute Area: [ ]LUE: [ ]RUE: [ ]LLE: [ ]RLE: Set 2 TIME SPENT: 15 Minutes Position:[ ]Prone [ ]Supine [ ]Left Side [ ] Right Side [ ]Seated Chair [ ] Massage Chair Points used: [ ]Ear:[ ]Left [ ]Right [ ]Bilateral [ ]BFA Protocol, [ ]NADA Protocol, [ ]ATP Protocol [ ]Ear: [ ]Martinez Men, [ ]Point Zero, [ ]Sympathetic [ ]Ear Other: [ ]Head: [ ]Neck: [ ]Torso: [ ]Hip / Glute Area: [X] RUE: LI 4, ASTRID 7, TH 5, LI 11 [X] LUE: LI 4, ASTRID 7, TH 5, LI 11 [X] RLE: GB 34, ST 36, SP 9, SP 6, GB 40, KD 3, LR 3 [X] LLE: GB 34, ST 36, SP 9, SP 6, GB 40, KD 3, LR 3 [ ]Other therapies: [ ]Cold Laser [ ]Cupping: [ ]Peizo Pen: [ ]External Qigong: [X]TDP Lamp:feet [ ]Tui Na: [ ]Guasha: [ ]Nutrition Counseling: The procedures were performed and needles removed without complication. Treatment Response: [X]nominal / [ ]negative / [ ]aborted due to [ ]F/U PRN self-schedule upon unresolving re-aggravation or with degrading pain control. An RTC order will be necessary if patient is seeking self-schedule beyond one year; If beyond three years, a new consult is required. /leticia/ MANPREET MUNGUIA LA.C DIPL.AC CAST SHELL GRINDER Signed: 10/28/2024 16:04 MANPREET MUNGUIA [facility]
--- OUTSIDE RECORDS SUMMARY | 2024-11-20 10:06 | XMS_ITS ---
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 Date/Time Encounter Type Encounter Description Reason Provider Source Nov 17, 2024 02:45 PM OFFICE O/P EST HI 40 MIN PAIN CLINIC ICD-10-CM M54.2 Cervicalgia KUPFERSCHMID,S ETH B IHE Encounter Template Text not used by [place] Assessments - Encounter Diagnoses This section includes the primary and secondary diagnoses documented for the Encounter. Date/Time Primary/Secondary Diagnosis Diagnosis Name Provider Source Nov 20, 2024 09:38 AM PRIMARY Cervicalgia [place] PHILIPPE B [facility] [place] [facility] Nov 20, 2024 09:38 AM SECONDARY Alcohol dependence, uncomplicated KUPFERSCHMID, PHILIPPE B [facility] [place] [facility] Nov 20, 2024 09:38 AM SECONDARY Chronic pain due to trauma KUPFERSCHMID, PHILIPPE B [facility] [place] [facility] Nov 20, 2024 09:38 AM SECONDARY Pain in right knee KUPFERSCHMID, PHILIPPE B [facility] [place] [facility] Nov 20, 2024 09:38 AM SECONDARY Pain in unspecified shoulder KUPFERSCHMID, PHILIPPE B [facility] [place] [facility] Nov 20, 2024 09:38 AM SECONDARY Post-traumatic stress disorder, unspecified KUPFERSCHMID[facility] Plan of Treatment: Future Appointments (+ 6 months) and Future Tests (+/- 45 days) The Plan of Treatment section includes future care activities for the [facility] [place] [facility] This section includes future appointments and future orders which are active, pending or scheduled. Future Appointments This section includes appointments that were scheduled to occur 6 months from the date of the Encounter, up to a maximum of 20 appointments. The data comes from all [place] treatment facilities. Appointment Date/Time Appointment Type Appointme nt Facility Name Nov 20, 2024 10:30 AM AMBULATORY - NONE [facility] [place] [facility] Nov 26, 2024 02:00 PM AMBULATORY - PSYCHIATRY [facility] [place] [facility] Dec 02, 2024 11:00 AM AMBULATORY - MEDICINE [facility] [place] [facility] Dec 03, 2024 02:00 PM AMBULATORY - PSYCHIATRY [facility] [place] [facility] Dec 10, 2024 02:00 PM AMBULATORY - PSYCHIATRY [facility] [place] [facility] Jan 04, 2025 11:00 AM AMBULATORY - MEDICINE [facility] [place] [facility] Jan 15, 2025 09:45 AM AMBULATORY - MEDICINE [facility] [place] [facility] Active, Pending, and Scheduled Orders This section includes a listing of several types of active, pending, and scheduled orders, including clinic medications orders, diagnostic test orders, procedure orders and consult orders; where the start date of the order is 45 days before the date of the Encounter or 45 days after the date of theEncounter. The data comes from all [place] treatment facilities. Test Date/Time Test Type Test Details Facility Name Oct 27, 2024 03:39 PM Consult Order [facility] Cons Substation Superintendent's Choice [facility] [place] [facility] Social History: Smoking Status (Most current) [...] 2024 11:30 AM VA-TOBACCO USER EVERY DAY [facility] Tobacco Use History This section includes a history of the smoking, or tobacco-related health factors, that were collected on or before the date of the Encounter. The data comes from the [place] facility where the Encounter took place. Date/Time Smoking Status/Tobacco Use Comment F acility Aug 20, 2024 11:30 AM VA-TOBACCO USE ADVICE [facility] [place] [facility] Aug 20, 2024 11:30 AM VA-TOBACCO USE PATTERN CHECKER NO [facility] [place] [facility] Aug 20, 2024 11:30 AM VA-TOBACCO USE MED NO [facility] [place] [facility] Aug 20, 2024 11:30 AM VA-TOBACCO USE WI 30 MIN OF WAKEUP [facility] [place] [facility] Aug 20, 2024 11:30 AM VA-TOBACCO USER EVERY DAY [facility] [place] [facility] Aug 15, 2023 04:34 PM VA-TOBACCO DOESNT USE WI 30 MIN WAKEUP [facility] [place] [facility] Aug 15, 2023 04:34 PM VA-TOBACCO USE > 1 5 LESS THAN 30 YEARS [facility] [place] [facility] Aug 15, 2023 04:34 PM VA-TOBACCO USE ADVICE [facility] [place] [facility] Aug 15, 2023 04:34 PM VA-TOBACCO USE PATTERN CHECKER NO [facility] [place] [facility] Aug 15, 2023 04:34 PM VA-TOBACCO USE MED NO [facility] [place] [facility] Aug 15, 2023 04:34 PM VA-TOBACCO USER EVERY DAY [facility] [place] [facility] Encounter Notes: All associated encounter notes This section contains the clinical notes associated to the Encounter. Date/Time Encounter Note(s) Provider Source Nov 17, 2024 02:53 PM PAIN MEDICINE OUTPATIENT NOTE: LOCAL TITLE: PAIN CLINIC NOTE STANDARD TITLE: PAIN MEDICINE OUTPATIENT NOTE DATE OF NOTE: NOV 17, 2024@14:53 ENTRY DATE: NOV 17, 2024@14:53:21 AUTHOR: PHILIPPE WALLACE EXP COSIGNER: URGENCY: STATUS: COMPLETED CURRENT ======= No alcohol since 09/19/2024 Smoking a lot of cigarettes, drinking a lot of coffee. Patches (Butrans) do not work at all. Anxiety medicine does not work (buspirone?). I need stronger stuff. My body has a lot of mileage. I need things like lorazepam and oxycodone. Walking much stronger than at last visit. Disorganized (baseline), for example, stopped the long pill with the cut corners Does appear less despondent and more interactive today. Says antidepressants aren't doing anything but affect appears better during appt. 10/09/2024 I stopped drinking September 19 for my relationship. Now I know how much pain I have because I am not drunk all the time. I have woken up to how miserable this fucking life is. PAIN-RELATED CONDITIONS PCP at [facility], Jose Fried Cervical and lumbar spine issues Right shoulder worse than left Knees Alcohol use disorder, [place] [facility] November 12 to Dec 30, 2022. 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 Daughters in [place], [place] (1998 and 2003); estranged. 1 brother from mother, 2 from father. Cigs: 11/12 ppd ETOH: Quit 11/2022 Substances: None RISK MITIGATION UDS: 09/2023 PDMP: 02/18/2024 Consent: 04/19/2023 === PLAN === Mr. 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 11/17/2024 MEDICATIONS Unsure of what he takes, has pill organizer he does not use, I did not know I was supposed to refill it each week. PAIN, PTSD, ANXIETY Looking for pharmacologic relief while not wanting to engage in therapy. Hi-risk for misuse, dose escalation. -Paroxetine 20 mg daily -Gabapentin 300 mg tid -Quetiapine 50 mg qhs -Mirtazapine 30 mg qhs (increase from 15 mg) ORTHO - Neck, shoulders, knees Seeing [facility] Reports he had steroid injection Says he has upcoming cervical ablation. AUD Tenuous remission since 09/19/2024 Does not want medication HOUSING Says he will be homeless at end of month. GENERAL Socially isolated, son lives nearby, high risk for relapse, minimizes dependence on alcohol or benzos, resistant to therapy or supports except to fit his needs. 10/09/2024 Severe AUD, remission for 20 days. Limited insight and understanding. Quick to interrupt, thinks he has the answers. Defensive. Blames others for his problems and not getting help. Not interested in MH support. He left the appointment today angry and with words to me because he did not receive diazepam, oxycodone, and handicapped armandoard. AUD Stopped 20 days ago because GF [...] PTSD Asks for referral to and says, BRENT wants me to start this. There is no point because I am probably moving to [place] soon to be with her. -Refer to [facility]da I tried to discuss the importance of taking medications as directed, using a single PCP (says he will get all PC here now). Says he uses as directed; refill record, what he says, and his collection of medication bottles suggest he does not use as directed. Shailesh going to [facility] for November. 05/25/2024 LEG EDEMA Much worse. [...] risks and risks for relapse. (Call to [facility] at 4:30 to ask if he called [...] formulated the plan through shared medical-decision making. [facility] repeated the plan back to me and had no further questions at end of appointment. APPOINTMENT LENGTH: 45 minutes FOLLOW-UP: 8 weeks 11/20/2024 10:30 [facility]-COLONOSCOPY SURV 11/26/2024 14:00 [facility]/NO/VVC/[facility]/PSYCHOL 2 12/02/2024 11:00 [facility]-UROLOGY 01/04/2025 11:00 [facility]/NO/PACT 4 === MEDICATION and RECONCILIATION === Active Outpatient Medications (including Supplies): Active Outpatient Medications Status 1) ALBUTEROL 3/IPRATROP 0.5MG/3ML INHL 3ML INHALE 1 AMPULE IN ACTIVE NEBULIZER FOUR TIMES A DAY Indication: FOR BRONCHOSPASM 2) AMLODIPINE BESYLATE 5MG TAB TAKE ONE TABLET BY MOUTH ONCE ACTIVE DAILY FOR BLOOD PRESSURE/HEART, DO NOT TAKE WITH GRAPEFRUIT JUICE Indication: FOR HIGH BLOOD PRESSURE 3) BUPRENORPHINE 10MCG/HR PATCH APPLY 1 PATCH TO SKIN EVERY 5 ACTIVE DAYS (REMOVE PATCH BEFORE APPLYING A NEW PATCH) Indication: FOR SEVERE CHRONIC PAIN 4) CETIRIZINE HCL 10MG TAB TAKE ONE TABLET BY MOUTH ONCE DAILY ACTIVE Indication: FOR ALLERGIES 5) FLUTICAS 250/SALMETEROL 50 INHL DISK 60 INHALE 1 PUFF BY ACTIVE MOUTH TWICE DAILY - RINSE MOUTH AFTER USE Indication: FOR BRONCHOSPASM PREVENTION WITH COPD 6) MIRTAZAPINE 30MG TAB TAKE ONE-HALF TABLET BY MOUTH AT ACTIVE BEDTIME FOR DEPRESSION/MOOD Indication: FOR MAJOR DEPRESSIVE DISORDER Helps with sleep 7) NICOTINE 14MG/24HR PATCH APPLY 1 PATCH TO SKIN ONCE DAILY ACTIVE (REMOVE OLD PATCH BEFORE APPLYING NEW PATCH) Indication: FOR SMOKING CESSATION 8) NICOTINE POLACRILEX 2MG MINI LOZENGE DISSOLVE 1 LOZENGE BY ACTIVE MOUTH SIX TIMES A DAY NEEDED Indication: FOR NICOTINE REPLACEMENT 9) OMEPRAZOLE 20MG EC CAP TAKE TWO CAPSULES BY MOUTH EVERY ACTIVE MORNING 30 MINUTES BEFORE BREAKFAST Indication: FOR GASTROESOPHAGEAL REFLUX DISEASE 10) PAROXETINE HCL 40MG TAB TAKE ONE TABLET BY MOUTH ONCE DAILY ACTIVE Indication: FOR MAJOR DEPRESSIVE DISORDER 11) POTASSIUM CHLORIDE 10MEQ SA TAB TAKE ONE TABLET BY MOUTH ACTIVE ONCE DAILY Indication: FOR LOW POTASSIUM 12) PREDNISONE 20MG TAB TAKE THREE TABLETS BY MOUTH ONCE DAILY ACTIVE Indication: FOR ASTHMA 13) QUETIAPINE FUMARATE 50MG TAB TAKE ONE TABLET BY MOUTH AT ACTIVE BEDTIME NEEDED FOR SLEEP Indication: INSOMNIA 14) TAMSULOSIN HCL 0.4MG CAP TAKE ONE CAPSULE BY MOUTH AT ACTIVE BEDTIME Indication: FOR ENLARGED PROSTATE 15) TIOTROPIUM 2.5MCG/ACTUAT 60D ORAL INHL INHALE 2 PUFFS BY ACTIVE MOUTH ONCE DAILY Indication: FOR BRONCHOSPASM PREVENTION WITH COPD Active Non-VA Medications Status 1) Non-VA ALBUTEROL 90MCG (CFC-F) 200D ORAL INHL 2 PUFFS BY ACTIVE MOUTH EVERY 4 HOURS 2) Non-VA AMLODIPINE BESYLATE 5MG TAB 5MG BY MOUTH ONCE DAILY ACTIVE 3) Non-VA ATORVASTATIN CALCIUM 40MG TAB 20MG BY MOUTH ONCE ACTIVE DAILY 4) Non-VA CYCLOBENZAPRINE HCL TAB 7.5MG BY MOUTH THREE TIMES A ACTIVE DAY 5) Non-VA FLUTICASONE/SALMETEROL (WIXELA) INHL,ORAL 1 PUFF ACTIVE FLUTICAS 250/SALMETEROL 50 INHL DISK 60 BY MOUTH TWICE DAILY 6) Non-VA MAGNESIUM OXIDE TAB BY MOUTH ACTIVE 7) Non-VA JXSCE-0-QPGP ETHYL ESTERS 1000MG CAP 1000MG BY MOUTH ACTIVE TWICE DAILY 8) Non-VA OMEPRAZOLE 20MG EC CAP 40MG BY MOUTH EVERY MORNING 30 ACTIVE MINUTES BEFORE BREAKFAST 9) Non-VA POTASSIUM CHLORIDE 10MEQ SA TAB 20MEQ BY MOUTH ONCE ACTIVE DAILY 10) Non-VA TERAZOSIN HCL 10MG CAP 10MG BY MOUTH ONCE DAILY ACTIVE 11) Non-VA TESTOSTERONE CYPIONATE PA-F INJ,SOLN ACTIVE INTRAMUSCULARLY Indication: FOR LOW TESTOSTERONE 12) Non-VA TIOTROPIUM 1.25MCG/ACTUAT 60D ORAL INHL 2 PUFFS BY ACTIVE MOUTH ONCE DAILY 27 Total Medications ACTIVE PROBLEMS Active problems - Computerized Problem List is the source for the followin. Benign Prostatic Hypertrophy with Outflow Obstruction ([facility] [id number]) 2. Colonic polyp 3. COPD - Chronic Obstructive Pulmonary Disease ([facility] [id number]) 4. HTN - Hypertension ([facility] [id number]) 5. Exposure to potentially hazardous substance 6. Erectile Dysfunction ([facility] [id number]) 7. Neck Pain ([facility] [id number]) 8. Pain of Right Knee ([facility] [id number]) 9. Shoulder Pain ([facility] [id number]) 10. Low testosterone 11. GERD - Gastro-Esophageal Reflux Disease ([facility] [id number]) 12. Headache ([facility] [id number]) 13. Allergic Rhinitis ([facility] [id number]) 14. Concussion with loss of consciousness 15. Asthma ([facility] [id number]) 16. SAS - Sleep apnoea syndrome 17. Chronic pain 18. Alcohol dependence 19. Tobacco abuse 20. Posttraumatic stress disorder Appointment length includes time with [facility], completing clinical reminders, reviewing relevant information in EMR, review of PDMP, ordering appropriate tests, prescribing medications, coordinating care, and completing the medical record. Any quotations may not be exact and are intended to convey the effect of what the [facility] was saying. /leticia/ PHILIPPE WALLACE MD PHYSICIAN Signed: 11/20/2024 09:38 PHILIPPE WALLACE [facility]
--- NOTE | 2024-11-20 10:43 | ECG_ITS ---
Test Reason : preop Blood Pressure : */* mmHG Vent. Rate : 92 BPM Atrial Rate : 92 BPM P-R Int : 158 ms QRS Dur : 76 ms QT Int : 350 ms P-R-T Axes : 63 51 48 degrees QTcB Int : 432 ms Artifact in tracing Normal sinus rhythm Normal ECG When compared with ECG of 25-Sep-2024 22:26, No significant changes seen Referred By: Jeannie Acuna Electronically Signed By: HENRY LORENZO
[2024-11-20 10:53] VITALS: BMI 29.4
--- NOTE | 2024-11-20 11:08 | MHC.SHP ---
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 Depression Supraclavicular mass Sleep apnea in adult Pulmonary nodules Hypogonadism in male ) History of Previous Operations: Relevant previous surgery/procedure and date(s) (History of colonoscopy, history of inguinal hernia repair) Allergies: Allergies Allergy/AdvReac Type Severity Reaction Status Date / Time No Known Allergies Allergy Verified 11/20/24 10:52 [No Known Allergies*] Review of Systems Sugical H&P ROS: Negative: Constitution, Cardiovascular, Respiratory and Gastrointestinal Exam Surgical H&P Exam: Normal: Heart, Normal: Lungs, Normal: Extremities and Normal: Abdomen Plan Diagnosis/Plan: Unchanged I have reviewed the history and physical and performed a pertinent physical examination on my patient. No changes have occurred unless specified. Time Spent With Patient Time: Total time managing care of this patient today ____ minutes.
[2024-11-20 11:12] LABS: Hematocrit 43.9 % (42.0-52.0); Mean Corpuscular HGB Conc 34.2 g/dl (31.0-36.0); Mean Corpuscular Hemoglobin 30.7 pg (27.0-33.0); Mean Corpuscular Volume 89.8 fL (80.0-98.0); Mean Platelet Volume 10.1 fL (9.4-12.4); Platelet Count 308 X10*3/uL (160-400); Red Blood Count 4.89 X10*6/uL (4.60-5.80); Red Cell Distribution Width 15.2 % (11.0-16.0); White Blood Count 11.8 X10*3/uL (4.8-10.8)
[2024-11-20 11:29] VITALS: BP 129/87; PULSE 80; RESP 16; TEMP 36.9; O2SAT 95
[2024-11-20] MEDS: Albuterol Sulfate (0.083%) 2.5 MG/3 ML VIAL.NEB INHALE (11:29)
[2024-11-20 11:30] VITALS: PULSE 80; RESP 14; O2SAT 93
[2024-11-20] MEDS: Lactated Ringers 1,000 ML 100 ML IVCONT (11:31)
[2024-11-20 11:41] LABS: Alanine Aminotransferase 12 U/L (0-40); Albumin Level 3.7 g/dL (3.5-5.0); Alkaline Phosphatase 75 U/L (39-117); Anion Gap 9 (12-20); Aspartate Amino Transferase 25 U/L (5-37); Bilirubin Total 0.7 mg/dL (0.0-1.0); Blood Urea Nitrogen 7 mg/dL (9-16); Calcium 9.7 mg/dL (8.4-10.2); Carbon Dioxide 25 mmol/L (22-29); Chloride 110 mmol/L (96-108); Creatinine Clr Calc Pharmacy 112.1; Estimated Glomerular Filt Rate > 60; Glucose Fasting 78 mg/dL (60-99); Magnesium 1.7 mg/dL (1.6-2.6); Sodium 140 mmol/L (135-145); Total Protein 7.1 g/dL (6.5-8.0)
--- NOTE | 2024-11-20 12:01 | P.OPN-COLO_ITS ---
Colonoscopy Operative Note Operative Note Date of Service: 11/20/24 Narrative: FLEXIBLE TRANSORAL UPPER GASTROINTESTINAL ENDOSCOPY WITH BIOPSIES AND COLONOSCOPY TILL CECUM WITH BIOPSIES AND SNARE POLYPECTOMY Pre-op diagnosis: surveillance for colon polyps, GERD Post-op diagnosis: GERD, hiatal hernia, Gastritis, Colon Polyps, Diverticulosis, hemorrhoids Endoscopist:? China Mohr MD Anesthesia:?MAC UPPER ENDOSCOPY Consent: Indications for the procedure and potential complications of bleeding, perforation, reaction to medications and missed diagnosis were discussed with the patient and informed consent was obtained. Instrument: Olympus GIF H 190 mid size upper endoscope Monitoring: Vital signs and clinical assessment, continuous EKG monitoring, Pulse oximetry, Carbon Dioxide monitoring and blood pressure monitoring were done throughout the procedure. Procedure: The patient was placed in the left lateral decubitis position and pre-procedure medications were administered and a bite block was placed. The endoscope was inserted into the mouth and advanced under direct vision to the third part of duodenum. A careful inspection was made as the upper endoscope was withdrawn including a retroflexed examination of the proximal stomach; Findings and interventions are described below. Findings: Larynx: Normal Esophagus: GE junction at 38 cms, small hiatal hernia 38 to 40 cms - biopsied.. Irregular Z line with two 1 cms tongues of suspected Walden's. Stomach: Moderate diffuse gastric erythema - biopsies were obtained from the antrum during previous EGD were negative for Helicobacter pylori. Grade 2 flap valve on retroflexed examination of the cardia. Duodenum: Normal bulb and descending duodenum Intervention: Biopsies as noted above COLONOSCOPY PROCEDURE NOTE Instrument: Olympus CF H 190 L variable stiffness adult colonoscope Monitoring: Vital signs and clinical assessment, intermittent blood pressure monitoring, continuous EKG monitoring, Pulse oximetry and Carbon Dioxide monitoring were done throughout the procedure. Please see anesthesia flowsheet. Colon withdrawl time was 25 minutes. Procedure: The patient was placed in the left lateral decubitis position and pre-procedure medications were administered. After a digital rectal examination of the ano-rectum, the video colonoscope was inserted into the rectum and advanced through the colon to the cecum. The colonoscope was slowly withdrawn in a retrograde panoramic fashion and the colon mucosa was carefully examined including a retroflexed view of the rectum. Findings and interventions are described below. Procedure Difficulty: without difficulty There was spasm throughout the colon. Findings: Terminal Ileum: Not evaluated Cecum: Normal Ascending Colon: A 12-15 mm sessile polyp in the distal AC - removed with a hot snare Moderate diverticulosis throughout the entire colon Transverse Colon: A 12-15 mm sessile polyp in the proximal TC - removed with a hot snare. A 7-8 mm polyp versus inverted diverticulum at 70 cms - biopsied. Moderate diverticulosis throughout the entire colon Descending Colon: A 9-10 mm sessile polyp - removed with a hot snare. Polypectomy site was closed with 2 hemoclips. Moderate diverticulosis throughout the entire colon Sigmoid Colon: Moderate diverticulosis Rectum: Normal Ano-rectum: Moderate internal hemorrhoids Colon preparation: Good after copious irrigation (Pt admitted to eating mashed potatoes at 16:00 yesterday) Benicia Bowel Preparation Scale Right colon; 2 Transverse colon: 2 Left colon; 2 (0 = Unprepared colon segment with mucosa not seen due to solid stool that cannot be cleared. 1 = Portion of mucosa of the colon segment seen, but other areas of the colon segment not well seen due to staining, residual stool and/or opaque liquid. 2 = Minor amount of residual staining, small fragments of stool and/or opaque liquid, but mucosa of colon segment seen well. 3 = Entire mucosa of colon segment seen well with no residual staining, small fragments of stool or opaque liquid) Impression and Post Procedure Diagnosis: Endoscopy Findings: ESOPHAGUS: Small hiatal hernia 38 to 40 cms - biopsied.. Irregular Z line with two 1 cms tongues of suspected Walden's. Erosive esophagitis seen on previous EGD has healed completely STOMACH: Diffuse gastritis DUODENUM: Normal Colonoscopy Findings: Three medium sized polyps were removed Moderate diverticulosis seen in the entire colon Moderate hemorrhoids on retroflexed exam. Plan: Pt has a FU appointment on 01/01/[address] Mohr Repeat Colonoscopy in 3 years if polyps are adenomatous and due to history of adenomatous colon polyps. Above findings were reviewed with the patient and relevant handouts were given and the discharge area. BIOPSY SHOWED: A. Esophagus, distal, biopsy: - Cardiofundic-type mucosa with moderate chronic active inflammation; no intestinal metaplasia seen. - Active esophagitis (mostly neutrophils). B. Colon, ascending, polypectomy: Tubular adenoma; negative for high-grade dyspl tenzin or carcinoma. C. Colon, transverse, polypectomy: Tubular adenoma; negative for high-grade dysplasia or carcinoma. D. Colon, transverse at 70 cm, polypectomy: Inflammatory polyp. E. Colon, descending, polypectomy: Tubular adenoma; negative for high-grade dysplasia or carcinoma. Letter sent advising repeat colonoscopy in 3 years. Patient was placed on the colonoscopy recall list.
[2024-11-20 12:39] VITALS: BP 112/73; PULSE 98; RESP 16; TEMP 36.6; O2SAT 94
[2024-11-20 12:54] VITALS: BP 132/95; PULSE 98; RESP 16; TEMP 36.6; O2SAT 95
== END 2024-11-20 13:51 | disposition home or self-care (01) ==
PROVIDERS: Nurse Practitioner; PCP Nurse Practitioner Family; Visit Provider Internal Medicine Gastroenterology
PROC: (CPT 45385; principal; 2024-11-20 11:50)
DX: Z12.11 Encounter for screening for malignant neoplasm of colon (principal); D12.2 Benign neoplasm of ascending colon; D12.3 Benign neoplasm of transverse colon; D12.4 Benign neoplasm of descending colon; K51.40 Inflammatory polyps of colon without complications; K57.30 Diverticulosis of large intestine without perforation or abscess without bleeding; K64.8 Other hemorrhoids; K29.60 Other gastritis without bleeding; K22.9 Disease of esophagus, unspecified; K44.9 Diaphragmatic hernia without obstruction or gangrene; K21.9 Gastro-esophageal reflux disease without esophagitis; D64.9 Anemia, unspecified; Z86.0101 Personal history of adenomatous and serrated colon polyps; I10 Essential (primary) hypertension; E78.5 Hyperlipidemia, unspecified; E03.9 Hypothyroidism, unspecified; G47.33 Obstructive sleep apnea (adult) (pediatric); J45.909 Unspecified asthma, uncomplicated; F10.10 Alcohol abuse, uncomplicated; R18.8 Other ascites; R74.01 Elevation of levels of liver transaminase levels; F43.10 Post-traumatic stress disorder, unspecified; F17.200 Nicotine dependence, unspecified, uncomplicated; Z87.820 Personal history of traumatic brain injury; Z79.899 Other long term (current) drug therapy; Z79.4 Long term (current) use of insulin
CPT/HCPCS: 45385; 45380; 43239; 36415; 80053; 83735; 85027; 88305; 88313; 93005; 94640; J2003; J2704

== ENCOUNTER → 2024-11-20 09:54 | Outpatient (BNV) | payer OTHER, SELFPAY | PROVIDERS: PCP Nurse Practitioner Family; Visit Provider Internal Medicine Gastroenterology | DX: Z12.11 Encounter for screening for malignant neoplasm of colon (principal); Z86.0100 Personal history of colon polyps, unspecified; D12.3 Benign neoplasm of transverse colon; D12.4 Benign neoplasm of descending colon; D12.2 Benign neoplasm of ascending colon; K21.9 Gastro-esophageal reflux disease without esophagitis; K29.70 Gastritis, unspecified, without bleeding; K57.90 Diverticulosis of intestine, part unspecified, without perforation or abscess without bleeding | CPT/HCPCS: 43239; 45380; 45385 ==

== ENCOUNTER → 2024-11-20 10:43 | Outpatient (BNV) | payer OTHER, SELFPAY | PROVIDERS: PCP Nurse Practitioner Family; Visit Provider Internal Medicine | DX: K21.9 Gastro-esophageal reflux disease without esophagitis (principal) | CPT/HCPCS: 93010 ==

== ENCOUNTER 2024-12-02 11:00 | Outpatient (AMB) | payer OTHER, SELFPAY ==
--- NOTE | 2024-12-02 11:03 | A.OFFVIS_ITS ---
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 He is a patient of Dr. Julian. He is seen for the following urologic issues - hypogonadism - lower urinary tract symptoms One year follow-up Remains on tamsulosin No longer taking testosterone Given prescription for testosterone Six-month follow-up Hypogonadism: Other issues been with pain management. We need to normalize his testosterone before his overall pain management can be optimized. - Did encourage him to drink less alcohol is this also factors in. He presents today for further evaluation and followup of his hypogonadism. Initial symptoms include erectile dysfunction Yes decreased libido Yes change in mood/depression Yes in muscle size/strength Yes increased fatigue/malaise Yes Associate conditions include obstructive sleep apnea Yes CAD No obesity No stress - financial, family, employment No heavy alcohol or illicit drug use Yes 300 cc 100 proof alcohol per evening previously He has been taking History of intermittent external testosterone use. Laboratory results 03/29 T 54 04/29 707 High estrogen 07/30 1800 10/29 T 223 - 03/31 T 473, PSA 0.8, 12/02 203 P 0.5 E5, 06/01 T 200, 11/01 T 670 P 2.3, 12/04 T 185, 04/03 98 Diagnosis based on history and laboratory results Primary testicular failure, secondary to, exogenous steroid administration. 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 Daughter Alive and well Daughter Alive and well Brother Alive and well Social History Household Members: None Housing: Condominium Are you a primary emergency care tech to a significant other at home: No Do you presently have visiting nurse or other home services: No Alcohol intake: current Alcohol intake frequency: does not drink Alcohol type: hard liquor Comment: Pt refusing all alarms Patient Tobacco Use Status: Former Tobacco user Tobacco use type: Cigarette Cigarette Packs Per Day: 1 Cigarettes Per Day: 20.0 Years Smoked: quit cigaretters 8 years ago, once/month cigars & chewing tobacco e-Cigarette/Vaping Use: Currently Using Second Hand Smoke Exposure: No Substance Use Type: Marijuana service: No Current occupational status: employed 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 Cognitive needs: No Hearing needs: No Vision needs: No Office Procedures Post Void Residual Post Residual Void Post Void Residual (PVR): 23 [id number]-[id number] Void Residual by ultrasound Results AMB Urinalysis, Automated UA Leukoctes 0 Faizan/uL Last Edit by LEA Khan on 12/02/24 11:45 UA Nitrite Negative Last Edit by LEA Khan on 12/02/24 11:45 UA Urobilinogen 0.2 mg/dL Last Edit by LEA Khan on 12/02/24 11:4 5 UA Protein 15 mg/dL Last Edit by LEA Khan on 12/02/24 11:45 UA pH 6.0 Last Edit by LEA Khan on 12/02/24 11:45 UA Blood 0 Jarrett/uL Last Edit by LEA Khan on 12/02/24 11:45 UA Specific [place] 1.025 Last Edit by LEA Khan on 12/02/24 11: 45 UA Ketone Negative Last Edit by LEA Khan on 12/02/24 11:45 UA Bilirubin 1 mg/dL Last Edit by LEA Khan on 12/02/24 11:45 UA Glucose 0 mg/dL Last Edit by LEA Khan on 12/02/24 11:45 Assessment & Plan Assessment & Plan Orders: Orders AMB Urinalysis Automated Today Z13.9 - Encounter for screening, unspecified Prostate Specific Antigen 6 Months E29.1 - Testicular hypofunction Complete Blood Count no Diff 6 Months E29.1 - Testicular hypofunction Testosterone, Total 11/27/24 E29.1 - Testicular hypofunction Testosterone, Total 6 Months E29.1 - Testicular hypofunction Medications: New testosterone cypionate (Depo-Testosterone) 80 mg (0.4 mL) subcut QWEEK 4 weeks 2 mL 5RF E29.1 - Testicular hypofunction needle (disp) 25 gauge (BD Regular Bevel Newton) As directed - for testosterone subcutaneous injection 30 ea 0RF E29.1 - Testicular hypofunction needle (disp) 18 G (BD Regular Bevel Newton) As directed - draw up testosterone 30 ea 0RF E29.1 - Testicular hypofunction syringe (disposable) (BD Luer-Doug Syringe) Testosterone injection weekly 30 ea 0RF E29.1 - Testicular hypofunction, E34.9 - Endocrine disorder, unspecified Coding CPT Codes Post Residual Void - PVR CPT Code: [id number] Void Residual by ultrasound ([id number])
== END 2024-12-02 12:09 | disposition home or self-care (01) ==
LOC: HO.HUSH 11:00
PROVIDERS: PCP Nurse Practitioner Family; Visit Provider Urology
DX: Z13.9 Encounter for screening, unspecified (principal)

== ENCOUNTER → 2024-12-02 11:00 | Outpatient (BNVA) | payer OTHER, SELFPAY | PROVIDERS: PCP Nurse Practitioner Family; Visit Provider Urology | DX: E29.1 Testicular hypofunction (principal); E34.9 Endocrine disorder, unspecified | CPT/HCPCS: 51798; 81003 ==

== ENCOUNTER 2024-12-07 08:48 | Outpatient (REF) | payer OTHER, SELFPAY ==
[2024-12-07 10:13] LABS: Hematocrit 43.3 % (42.0-52.0); Mean Corpuscular HGB Conc 32.3 g/dl (31.0-36.0); Mean Corpuscular Hemoglobin 29.9 pg (27.0-33.0); Mean Corpuscular Volume 92.5 fL (80.0-98.0); Mean Platelet Volume 10.4 fL (9.4-12.4); Platelet Count 287 X10*3/uL (160-400); Red Blood Count 4.68 X10*6/uL (4.60-5.80); Red Cell Distribution Width 16.1 % (11.0-16.0); White Blood Count 12.6 X10*3/uL (4.8-10.8)
[2024-12-07 11:12] LABS: Prostate Specific Antigen 0.15 ng/mL (<0.05-4.0)
[2024-12-11 15:58] LABS: Testosterone, Total 110 ng/dL (250-1100)
== END 2024-12-07 08:49 | disposition home or self-care (01) ==
LOC: HO.HMGCLDS 08:48
PROVIDERS: PCP Internal Medicine; Visit Provider Urology
DX: E29.1 Testicular hypofunction (principal); Z12.5 Encounter for screening for malignant neoplasm of prostate
CPT/HCPCS: 36415; 84153; 84403; 85027